=== PATIENT | male | born 1950 | race Caucasian/White ===

== ENCOUNTER 2018-09-27 20:50 | Observation (INO) | payer MEDICARE, SELFPAY ==
[2018-09-27 20:51] VITALS: BP 134/84; PULSE 96; RESP 18; TEMP 36.6; O2SAT 98; BMI 24.6
[2018-09-27 21:22] LABS: Bedside Glucose > 500 mg/dL (70-110)
[2018-09-27] MEDS: 0.9% Normal Saline 1,000 ML 1000 ML IV (21:39)
[2018-09-27 21:43] LABS: Absolute Lymphocyte Count 1.65 X10^3/ul (0.83-4.51); Basophil# 0.03 X10^3/uL; Basophil% 0.4 % (0-1); Eosinophil# 0.17 X10^3/uL; Hematocrit 43.5 % (40-54); Hemoglobin 14.4 g/dl (13.0-16.5); Lymphocyte # 1.65 X10^3/ul (4.0); Lymphocyte % 19.5 % (19-41); Mean Corp Hgb Conc 33.1 g/gl (32-36); Mean Corpuscular Hgb 28.1 pg (27.0-32.0); Mean Corpuscular Volume 84.8 fL (80-94); Mean Platelet Vol. 10.8 fl (6.2-12.0); Monocyte# 0.59 X10^3/uL; Neutrophil # 5.99 X10^3/uL (2.7-7.7); Platelet Count 181 K/mm3 (150-450); RBC Distribution Width CV 13.2 % (11.6-14.6); RBC Distribution Width SD 40.6 fl (35.1-43.9); Red Blood Count 5.13 M/mm3 (4.6-6.2); White Blood Count 8.4 K/mm3 (4.4-11.0)
[2018-09-27 21:43] LABS: Bacteria 0 SEEN /hpf (None Seen); Mucous, Urine 0 SEEN /hpf (<or=2+); Squamous Epithelial Cells - UA 0 SEEN /hpf (0-5); White Blood Cells 0 SEEN /hpf (0-5)
[2018-09-27 21:44] LABS: POSITIVE COUNT NO; POSITIVE DIFFERENTIAL NO; POSITIVE MORPHOLOGY NO
[2018-09-27 21:57] LABS: AST(SGOT) 15 U/L (15-37); Alanine Aminotransfer ALT/SGPT 21 U/L (16-61); Albumin, Serum 3.1 g/dL (3.2-5.0); Alkaline Phosphatase 147 U/L (45-117); Anion Gap 10 (5-15); BUN 40 mg/dL (7-18); BUN/Creat Ratio 16.7 RATIO (10-20); Bilirubin, Direct 0.15 mg/dL (0.00-0.30); Calcium,Total 8.2 mg/dL (8.5-10.1); Chloride 98 mmol/L (98-107); Creatinine, Serum 2.39 mg/dL (0.70-1.30); EST Glomerular Filtration Rate 29 mL/min (>60); Est Glom Filt Rate - Afr Amer 35 mL/min (>60); Estimated Creatinine Clearance 28.22 ml/min; Globulin 3.7 g/dL (2.2-4.2); Glucose 596 mg/dL (74-106); Protein, Total 6.8 g/dL (6.4-8.2); Sodium Level 133 mmol/L (136-145)
--- NOTE | 2018-09-27 21:57 | ED.RN ---
lab called with critical lab results. glucose 595. dr. zabala made aware no new orders at this time
[2018-09-27 22:00] LABS: Color, Urine Yellow (Yellow); Glucose, Dipstick 1000 mg/dl (Normal); Ketone-Dipstick Negative (Negative); Leukocyte Esterase-Dipstick Negative /ul (Negative); Nitrite-Dipstick Negative (Negative); Occult Blood-Urine 25 /ul (Negative); Protein-Dipstick 100 mg/dl (Negative); Specific Gravity, Urine 1.015 (1.002-1.030); Urine Bilirubin Dipstick Negative (Negative); Urine Clarity Clear (Clear); Urine Urobilinogen Normal (Normal)
[2018-09-27 22:01] LABS: Fine Granular Cast- Urine 0-5 SEEN /lpf (0-5)
[2018-09-27 22:02] LABS: Hyaline Cast 0-5 SEEN /lpf (0-5)
[2018-09-27 22:04] LABS: Red Blood Cells-Urine 0-5 SEEN /hpf (0-5)
[2018-09-27 22:05] LABS: Transitional Epithelial - Ur 0-5 SEEN /hpf (0-5)
[2018-09-27] MEDS: 0.9% Normal Saline 1,000 ML 250 ML IV (22:30)
[2018-09-27 22:36] LABS: Bedside Glucose 480 mg/dL (70-110)
--- NOTE | 2018-09-27 22:47 | ED.VISSUMM ---
- ER Visit Summary Date of Service: 09/27/18 Chief Complaint: High blood sugar History of Present Illness: The patient is a 67 M with history of diabetes, hypertension, high cholesterol, coronary disease, stroke, chronic kidney disease. Patient states he lost his balance today while getting dressed and fell. He was so weak he could not get up off the floor. He checked his blood sugar in it and it initially read high. He then recheck blood sugar and said it was greater than 400. Patient states he did have some clumsiness in both hands today. No focal deficits consistent with stroke. He does not normally check his blood sugars and is not taking them in some time. Later during the patient's hospital stay he does admit that he has not been able to afford his medication is not been taking it regularly. Physical Examination: Vital signs are unremarkable. Patient is lying in bed no acute distress. Head neck examination is significant for dry mucous membranes. Heart is regular rate and rhythm. Lungs sounds clear. Abdomen is soft nontender. Neuro exam reveals no focal deficits with an NIH score of 0. Test Results: CBC is unremarkable. Chemistry studies reveal glucose of 596 with coordinating sodium of 133. His BUN is 40 and creatinine is 2.39. LFTs grossly unremarkable. Urinalysis shows 2000 and glucose. Serum acetone is negative. Emergency Department Course and Treatment: Patient is given a liter of IV fluids. Following 1 L his blood sugar was 480. Fluids are being run at 250 an hour and he is given 10 units of insulin. Patient will be admitted for further treatment. I did discuss with social work the fact that he has had difficulty affording his medications and they will work with him tomorrow on this. Treatment Plan: [] Disposition: Admit Impression: 1. Hyperglycemia secondary to medication noncompliance 2. Renal failure This note was generated with [employer] software. It may contain incorrect words, spelling, and punctuation that were not noted in review of the chart prior to signing ED Disposition - Plan for ED Patient: Referrals: Paul Martinez Chi, MD [Primary Care Provider] -
--- NOTE | 2018-09-27 22:50 | ED.DCSUM_ITS ---
- ER Visit Summary Date of Service: 09/27/18 Chief Complaint: High blood sugar History of Present Illness: The patient is a 67 M with history of diabetes, hypertension, high cholesterol, coronary disease, stroke, chronic kidney disease. Patient states he lost his balance today while getting dressed and fel l. He was so weak he could not get up off the floor. He checked his blood sugar in it and it initially read high. He then recheck blood sugar and said it was greater than 400. Patient states he did have some clumsiness in both hands today. No focal deficits consistent with stroke. He does not normally check his blood sugars and is not taking them in some time. Later during the patient's hospital stay he does admit that he has not been able to afford his medication is not been taking it regularly. Physical Examination: Vital signs are unremarkable. Patient is lying in bed no acute distress. Head neck examination is significant for dry mucous membranes. Heart is regular rate and rhythm. Lungs sounds clear. Abdomen is soft nontender. Neuro exam reveals no focal deficits with an NIH score of 0. Test Results: CBC is unremarkable. Chemistry studies reveal glucose of 596 with coordinating sodium of 133. His BUN is 40 and creatinine is 2.39. LFTs grossly unremarkable. Urinalysis shows 2000 and glucose. Serum acetone is negative. Emergency Department Course and Treatment: Patient is given a liter of IV fluids. Following 1 L his blood sugar was 480. Fluids are being run at 250 an hour and he is given 10 units of insulin. Patient will be admitted for further treatment. I did discuss with social work the fact that he has had difficulty affording his medications and they will work with him tomorrow on this. Treatment Plan: [] Disposition: Admit Impression: 1. Hyperglycemia secondary to medication noncompliance 2. Renal failure This note was generated with [employer] software. It may contain incorrect words, spelling, and punctuation that were not noted in review of the chart prior to signing ED Disposition - Plan for ED Patient: Referrals: Paul Martinez Chi, MD [Primary Care Provider] -
--- NOTE | 2018-09-27 22:51 | CM.ED ---
Social Work Note Referral from Dr. Wilde informing that pt is reporting to struggle paying for medications. Face to face with the pt and his and introduced self and role at [facility]. The pt reports to live with his . Confirms his PCP is Dr. Martinez. He had a heart attack approximately 4 years ago and was seeing Dr. Mccray, but is not any longer as he states he was in a program that ended. Preferred pharmacy is [facility]. Pt reports that he has not been taking his medications because even with [employer] covering them they are $300. The pt's monthly income is $1200, but they report that is the rent of their home as well. Educate to Medicaid and that they take into consideration an individuals bills. 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 Will pass along to SW on assigned unit to continue to follow-up with prior to discharge. No additional needs anticipate and pt to discharge home with support of family once medically stable. Rosemary Willingham, TOOL RENTAL TECHNICIAN, AUTOPSY ASSISTANT
--- NOTE | 2018-09-27 22:52 | HP.PCM_ITS ---
Problem List (1) KIMI (acute kidney injury) Status: Acute (2) Hyperglycemia Status: Acute (3) HTN (hypertension) Status: Chronic Qualifiers: Hypertension type: essential hypertension Qualified Code(s): I10 - Essential (primary) hypertension (4) History of stroke Status: Chronic (5) Chronic kidney disease, stage 3 Status: Chronic (6) Peripheral vascular disease Status: Chronic Comment: status post angioplasty. (7) Status post coronary artery bypass graft Status: Chronic (8) Diabetes mellitus, type 2 Status: Chronic Qualifiers: Diabetes mellitus terminal system operator insulin use: without jail use Diabetes mellitus complication status: with unspecified complications Qualified Code(s ): E11.8 - Type 2 diabetes mellitus with unspecified complications (9) GERD (gastroesophageal reflux disease) Status: Chronic Qualifiers: Esophagitis presence: esophagitis presence not specified Qualified Code(s): K21.9 - Gastro-esophageal reflux disease without esophagitis (10) Hyperlipidemia Status: Chronic Qualifiers: Hyperlipidemia type: pure hypercholesterolemia Qualified Code(s): E78.00 - Pure hypercholesterolemia, unspecified; E78.0 - Pure hypercholesterolemia (11) CAD (coronary artery disease) Status: Chronic Qualifiers: Coronary Disease-Associated Artery/Lesion type: unspecified vessel or lesion type [place] vs. transplanted heart: unspecified whether [place] or transplanted heart Associated angina: angina presence unspecified Qualified Code(s): I25.10 - Atherosclerotic heart disease of [place] coronary artery without angina pectoris History of Present Illness Date of Admission: 09/27/18 Chief Complaint: Elevated BS, generalized weakness. The patient is a 67 y/o M w/ PMHx: CKD stage III (baseline Cr 1.4-1.7), Hx prior CVA (Most recent 08/2017 tiny L MCA (parietal)), CAD s/p CABG and PCI, HTN, HLD, Diabetes mellitus type II, Rheumatoid Arthritis who presents to the [facility] ED on 09/27/18 with history of failing to take his occasions secondary to cost he notes aside from aspirin therapy for the last 2 months with progressively worsening fatigue, weakness, polydipsia and polyuria in addition to generalized weakness with blood sugar upon self evaluation greater than 400 which is been the first time he checked his blood sugar since being off his medications. From discussions with patient suspect he had been decreasing his oral intake secondary to frequent urination. Work-up in the ED included T 97.8, heart rate 96, BP 134/84, respiratory rate 18, 98% on room air, CBC with WBC 8.4, hemoglobin 14.4, platelet 181 with mild shift, CMP with sodium 133, BUN/Cr 40/2.39, glucose 596, Alk phos 147, UA with 100 protein, 1000 glucose, negative ketones, 25 occult blood otherwise not market appearing, acetone level negative. In the ED patient administered normal saline, 10 units SC insulin Lispro x1. 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 Chronic kidney disease, stage 3 (Chronic) Peripheral vascular disease (Chronic) status post angioplasty. Status post coronary artery bypass graft (Chronic) Diabetes mellitus, type 2 (Chronic) GERD (gastroesophageal reflux disease) (Chronic) Hyperlipidemia (Chronic) CAD (coronary artery disease) (Chronic) Allergies No Known Allergies Allergy (Verified 09/27/18 20:53) Home Medications: Ambulatory Orders Medication Instructions Recorded Lisinopril [Zestril] 20 mg PO BID 08/02/15 Metoprolol Tartrate [Lopressor 50 mg PO BID 08/02/15 (beta ginny)] Aspirin E.C. [Ecotrin] 81 mg PO DAILY@0800 12/29/15 Dulaglutide [Trulicity] 1.5 mg SQ QWEEK 11/14/16 Folic Acid 1 mg PO SUMOTUWETHFR 03/31/17 Meclizine HCl [Antivert] 25 mg PO 4X/DAY PRN PRN #30 tablet 03/31/17 Methotrexate 5 mg PO SA 03/31/17 Ondansetron [Zofran Odt] 4 mg PO Q8H PRN PRN #10 tablet 03/31/17 Rosuvastatin Calcium [Crestor] 40 mg PO QHS 03/31/17 Sitagliptin Phosphate [Januvia] 100 mg PO DAILY 03/31/17 Clopidogrel Bisulfate [Plavix] 75 mg PO DAILY #30 tab 08/13/17 Amlodipine [Norvasc] 10 mg PO DAILY #60 tab 08/14/17 Surgical History: coronary bypass surgery, - - Benign soft tissue tumor resection, CABG x 3, PCI x 1, BL tunnel surgery, bilateral lower extremity venous intervention unclear type. Psychiatric History: No pertinent psych hx Lives: Spouse/ Significant Other Smoking Status: Former smoker - Patient quit cigarette tobacco usage approximately 50 years prior and notes he smoked for approximately 3 years, 1/4 pack/day. Tobacco Use: Non-smoker Alcohol: None Drugs: None - *Family History Maternal History Items: - - Patient notes that his mother was healthy and denies any history of heart disease, diabetes or cancer, passed at age 93. Paternal History Items: - - Patient notes that his father was healthy with no history of heart disease, diabetes or cancer, passed at age 89 secondary to brain aneurysm rupture. Review of Systems Constitutional: Reports: Malaise, Weakness, Fatigue. Denies: Chills, Fever, Weight Change HEENT: Denies: Head Aches, Sinus Congestion, Sinus Drainage Cardiovascular: Denies: Chest Pain, Palpitations Respiratory: Denies: Cough, Shortness of Breath, Shortness of breath at rest, Shortness of breath upon exertion, Sputum production Gastrointestinal: Denies: Abdominal Pain, Nausea, Vomiting Genitourinary: Denies: Dysuria Musculoskeletal: Reports: Joint Pain. Denies: Joint Tenderness Skin: Denies: Rash, Wounds Neurological: Reports: Balance problems. Denies: Focal weakness, Numbness, Tingling Psychiatric: Denies: Anxiety, Depression, Homicidal Ideations, Suicidal Ideations Endocrine: Reports: Polydipsia, Polyuria Hematologic/ Lymphatic: Denies: Easy Bruising, Easy Bleeding VTE Information - Inpt Only VTE Present on Admission: No VTE Mechan Device Prophylaxis: SCD's VTE Pharm Prophylaxis ordered?: Yes Patient Problems: Active and Suspected Problems Hyperglycemia (Acute) Subjective: Seated upright in ED bed, no acute distress, well-appearing. Objective: Physical Examination: General: awake, alert, oriented x 3 and cooperative, seated upright in the ED bed in no apparent distress. Skin: normal color, turgor, no icterus, cyanosis. HEENT: AT/NC, EOMI, PERRLA, dry MM, no carotid bruits or JVD noted. Lungs: Diminished breath sounds bilateral bases, mild effort, no rales, ronchi or wheezing. Heart: Regular rate and rhythm; no gallop, rub audible. Abdomen: soft, NTTP, ND, normal BS, no HSM. Extremities: no cyanosis, clubbing, or edema. Neurological: patient awake, alert, oriented x 3; cognitive function per family appears baseline intact; pupils equally reactive to light and accomodation; cranial nerves II-XII grossly normal, moving all 4 extremities, no focal deficits, strength moderately globally decreased. Psychiatric: affect appears normal, no acute evidence of depressive or anxiety feelings. - Physical Exam Vital Signs Temp Pulse Resp BP Pulse Ox 97.9 F 96 18 134/84 H 98 09/27/18 20:51 09/27/18 20:51 09/27/18 20:51 09/27/18 20:51 09/27/18 20:51 Oxygen Delivery Method Room Air Weight: 162 lb Body Mass Index (BMI) 24.6 Finger Stick Blood Glucose 480 Laboratory Tests Past 24 Hrs 09/27/18 09/27/18 09/27/18 21:26 21:26 21:26 WBC 8.4 RBC 5.13 Hgb 14.4 Hct 43.5 MCV 84.8 MCH 28.1 MCHC 33.1 RDW 13.2 RDW Differential 40.6 Plt Count 181 MPV 10.8 Immature Gran % (Auto) 0.100 Neut % (Auto) 71.0 H Lymph % (Auto) 19.5 Creek % (Auto) 7.0 Eos % (Auto) 2.0 Baso % (Auto) 0.4 Absolute Neuts (auto) 6.0 Absolute Lymphs (auto) 1.65 Total Counted Not Reportable Sodium 133 L Potassium 4.0 Chloride 98 Carbon Dioxide 25.0 Anion Gap 10 BUN 40 H Creatinine 2.39 H Estim Creat Clear Calc 28.22 Est GFR (MDRD) Af Amer 35 L Est GFR (MDRD) Non-Af 29 L BUN/Creatinine Ratio 16.7 Glucose 596 H* Calcium 8.2 L Total Bilirubin 0.70 Direct Bilirubin 0.15 AST 15 ALT 21 Alkaline Phosphatase 147 H Total Protein 6.8 Albumin 3.1 L Globulin 3.7 Urine Color Urine Clarity Urine pH Ur Specific [place] Urine Protein Urine Glucose (UA) Urine Ketones Urine Occult Blood Urine Nitrite Urine Bilirubin Urine Urobilinogen Ur Leukocyte Esterase Urine RBC Urine WBC Ur Squamous Epith Cells Ur Transition Epith Cell Urine Bacteria Hyaline Casts Fine Granular Casts Urine Mucus Acetone Level NEGATIVE 09/27/18 21:35 WBC RBC Hgb Hct MCV MCH MCHC RDW RDW Differential Plt Count MPV Immature Gran % (Auto) Neut % (Auto) Lymph % (Auto) [place] % (Auto) Eos % (Auto) Baso % (Auto) Absolute Neuts (auto) Absolute Lymphs (auto) Total Counted Sodium Potassium Chloride Carbon Dioxide Anion Gap BUN Creatinine Estim Creat Clear Calc Est GFR (MDRD) Af Amer Est GFR (MDRD) Non-Af BUN/Creatinine Ratio Glucose Calcium Total Bilirubin Direct Bilirubin AST ALT Alkaline Phosphatase Total Protein Albumin Globulin Urine Color Yellow Urine Clarity Clear Urine pH 6.0 Ur Specific [place] 1.015 Urine Protein 100 H Urine Glucose (UA) 1000 H Urine Ketones Negative Urine Occult Blood 25 H Urine Nitrite Negative Urine Bilirubin Negative Urine Urobilinogen Normal Ur Leukocyte Esterase Negative Urine RBC 0-5 SEEN Urine WBC 0 SEEN Ur Squamous Epith Cells 0 SEEN Ur Transition Epith Cell 0-5 SEEN Urine Bacteria 0 SEEN Hyaline Casts 0-5 SEEN Fine Granular Casts 0-5 SEEN Urine Mucus 0 SEEN Acetone Level POC Glucose 09/27/18 09/27/18 22:27 21:11 POC Glucose 480 H* > 500 H* Assessment/Plan All Active Problems Hyperglycemia (Acute) Acute CVA (cerebrovascular accident) (Acute) Vertigo (Acute) Hypertensive crisis (Acute) Hyperglycemic crisis in diabetes mellitus (Acute) KIMI (acute kidney injury) (Acute) Stroke (Acute) Community acquired pneumonia (Acute) The patient is a 67 y/o M w/ PMHx: CKD stage III (baseline Cr 1.4-1.7), Hx prior CVA (Most recent 08/2017 tiny L MCA (parietal)), CAD s/p CABG and PCI, HTN, HLD, Diabetes mellitus type II, Rheumatoid Arthritis who presents to the [facility] ED on 09/27/18 with history of failing to take his occasions secondary to cost he notes aside from aspirin therapy for the last 2 months with progressively worsening fatigue, weakness, polydipsia and polyuria in addition to generalized weakness with blood sugar upon self evaluation greater than 400 which is been the first time he checked his blood sugar since being off his medications. (1) Diabetes mellitus type II, Poorly controlled w/ Hyperglycemia: Work-up in the ED included T 97.8, heart rate 96, BP 134/84, respiratory rate 18, 98% on room air, CBC with WBC 8.4, hemoglobin 14.4, platelet 181 with mild shift, CMP with sodium 133, BUN/Cr 40/2.39, glucose 596, Alk phos 147, UA with 100 protein, 1000 glucose, negative ketones, 25 occult blood otherwise not market appearing, acetone level negative. In the ED patient administered normal saline, 10 units SC insulin Lispro x1. Will admit to MS, obtain mag, phos w/ repletion as needed, obtain HgbA1c, initiate low dose BID levemir, initiate TID 5 u short acting with meals in addition to overlapping ISS w/ accu checks, nutrition consultation for education. CM consulted to assist w/ discharge planning and review of options given cost as barrier. (2) Acute kidney injury on CKD stage III: Possible secondary to non-compliance with his medications, worsening disease in addition to suspected mild dehydration. Admission BUN/Cr 40/2.39, prior baseline creatinine noted to be 1.4-1.7. Will hydrate, hold nephrotoxic medications and repeat chemistry in AM. Will obtain FeNa assessment. If not improving would obtain renal US. (3) Mechanical Fall, Generalized Weakness: Secondary to #1, #2, complicated by his additional noted comorbidities, fall precautions, PT, OT, CM for discharge planning. (4) CAD: s/p CABG and PCI, continue home asa, plavix, statin, BB, holding ACEI given KIMI as noted. (5) Hypertension: Continue home regimen including Norvasc, metoprolol, holding lisinopril given KIMI presentation, PRN hydralazine. (6) Hyperlipidemia: Continue home statin regimen. (7) Rheumatoid Arthritis: On MTX outpatient, hold given intake Saturdays. (8) Prior CVA: Most recent 08/2017 tiny L MCA (parietal), maintain on asa, plavix, statin, BP regimen, CM consulted to assist w/ barrier of cost for insulin, PT, OT evaluations. (9) DVT Prophylaxis: SCDs, heparin. Code Visit OBSV E&M: 77383 Initial observation care L3
[2018-09-27] MEDS: Insulin Lispro 100 UNIT/ML INSULN.PEN 10 UNIT SC (23:05)
[2018-09-27 23:06] VITALS: BP 157/78; PULSE 80; PULSE 82; PULSE 83; RESP 15; RESP 16; RESP 19; TEMP 36.6; O2SAT 94; O2SAT 95; O2SAT 96
[2018-09-27 23:38] VITALS: BMI 25.0
[2018-09-28] VITALS (7 sets, daily range): BP systolic 115–153; BP diastolic 62–71; PULSE 69–81; RESP 16–18; TEMP 36.6–36.8; O2SAT 96–100
[2018-09-28 00:04] LABS: Magnesium 2.3 mg/dL (1.6-2.6)
[2018-09-28] MEDS: Insulin Lispro 100 UNIT/ML INSULN.PEN 10 UNIT SC ×3 (00:19→17:50)
[2018-09-28 00:31] LABS: Bedside Glucose 377 mg/dL (70-110)
[2018-09-28 00:43] LABS: Hemoglobin A1c 14.6 % (4.2-6.3)
[2018-09-28 00:45] LABS: Phosphorus 3.7 mg/dL (2.5-4.9)
[2018-09-28 01:49] LABS: Urine Sodium 48 mmol/L (Not Establ.)
[2018-09-28] MEDS: 0.9% Normal Saline 1,000 ML 150 ML IV ×2 (02:34→08:58)
[2018-09-28 06:11] LABS: Absolute Lymphocyte Count 1.77 X10^3/ul (0.83-4.51); Basophil# 0.02 X10^3/uL; Basophil% 0.3 % (0-1); Eosinophil# 0.25 X10^3/uL; Eosinophils% 3.3 % (0-5); Hematocrit 38.6 % (40-54); Hemoglobin 13.1 g/dl (13.0-16.5); Lymphocyte # 1.77 X10^3/ul (4.0); Lymphocyte % 23.5 % (19-41); Mean Corp Hgb Conc 33.9 g/gl (32-36); Mean Corpuscular Hgb 28.8 pg (27.0-32.0); Mean Corpuscular Volume 84.8 fL (80-94); Mean Platelet Vol. 10.5 fl (6.2-12.0); Monocyte# 0.52 X10^3/uL; Monocyte% 6.9 % (0-10); Neutrophil # 4.96 X10^3/uL (2.7-7.7); Neutrophil % 65.7 % (47-70); Platelet Count 173 K/mm3 (150-450); RBC Distribution Width CV 13.1 % (11.6-14.6); RBC Distribution Width SD 39.8 fl (35.1-43.9); Red Blood Count 4.55 M/mm3 (4.6-6.2); White Blood Count 7.5 K/mm3 (4.4-11.0)
[2018-09-28 06:30] LABS: Anion Gap 8 (5-15); BUN 31 mg/dL (7-18); BUN/Creat Ratio 17.1 RATIO (10-20); Calcium,Total 7.6 mg/dL (8.5-10.1); Chloride 110 mmol/L (98-107); Creatinine, Serum 1.81 mg/dL (0.70-1.30); EST Glomerular Filtration Rate 40 mL/min (>60); Est Glom Filt Rate - Afr Amer 48 mL/min (>60); Estimated Creatinine Clearance 37.27 ml/min; Glucose 250 mg/dL (74-106); Potassium 3.3 mmol/L (3.5-5.1); Sodium Level 142 mmol/L (136-145)
[2018-09-28 06:41] LABS: Bedside Glucose 243 mg/dL (70-110)
[2018-09-28] MEDS: Insulin Lispro 100 UNIT/ML INSULN.PEN SC ×4 (06:42→21:25)
[2018-09-28 07:04] LABS: POSITIVE COUNT NO; POSITIVE DIFFERENTIAL NO; POSITIVE MORPHOLOGY NO
[2018-09-28] MEDS: Aspirin E.C. 81 MG Tablet PO (08:13)
--- NOTE | 2018-09-28 09:11 | PN_ITS ---
Patient Problems: Active and Suspected Problems Hyperglycemia (Acute) Subjective: Patient was seen and examined. He feels better. Denied any chest pain or dizziness or shortness of breath. He admits to having run out of his medications for 2 months because he could not afford to pay for his medications. No acute events overnight Vitals/I&O's: Vital Signs Temp Pulse Resp BP Pulse Ox 98.2 F 74 16 149/71 H 96 09/28/18 07:49 09/28/18 07:49 09/28/18 07:49 09/28/18 07:49 09/28/18 07:49 Oxygen Delivery Method Room Air Weight: 74.8 kg Body Mass Index (BMI) 25.0 Finger Stick Blood Glucose 480 Intake and Output for Last 24 Hours 09/26/18 09/27/18 09/28/18 23:59 23:59 23:59 Intake Total 1280 / 1280 Output Total 300 / 300 Balance 980 / 980 General: Alert, Oriented x3, Cooperative, No apparent distress HEENT: Atraumatic, PERRLA, EOMI, Normocephalic Oral: Moist Mucosa Neck: Supple, No JVD, Negative Carotid Bruits Lungs: Clear to auscultation, Normal air movement Cardiovascular: Regular rate, Regular Rhythm, Normal S1, Normal S2, No murmurs Abdomen: Bowel Sounds Present, Soft, Non Tender, Non-Distended, No Hepato- splenomegaly Extremities: No edema Skin: No rashes, No breakdown Musculoskeletal: No Tenderness to Palpation of Joints or Extremities Lymphatic: No Cervical, Supraclavicular, or Inguinal Adenopathy Neurological: Cranial nerves II-XII grossly intact, Neuro grossly intact Psych/Mental Status: Normal Affect, Appropriate Laboratory Results 09/27/18 21:11: POC Glucose > 500 H* 09/27/18 21:26: WBC 8.4, RBC 5.13, Hgb 14.4, Hct 43.5, MCV 84.8, MCH 28.1, MCHC 33.1, RDW 13.2, RDW Differential 40.6, Plt Count 181, MPV 10.8, Immature Gran % (Auto) 0.100, Neut % (Auto) 71.0 H, Lymph % (Auto) 19.5, Carlton % (Auto) 7.0, Eos % (Auto) 2.0, Baso % (Auto) 0.4, Absolute Neuts (auto) 6.0, Absolute Lymphs (auto) 1.65, Total Counted Not Reportable 09/27/18 21:26: Sodium 133 L, Potassium 4.0, Chloride 98, Carbon Dioxide 25.0, Anion Gap 10, BUN 40 H, Creatinine 2.39 H, Estim Creat Clear Calc 28.22, Est GFR (MDRD) Af Amer 35 L, Est GFR (MDRD) Non-Af 29 L, BUN/Creatinine Ratio 16.7, Glucose 596 H*, Calcium 8.2 L, Total Bilirubin 0.70, Direct Bilirubin 0.15, AST 15, ALT 21, Alkaline Phosphatase 147 H, Total Protein 6.8, Albumin 3.1 L, Globulin 3.7 09/27/18 21:26: Acetone Level NEGATIVE 09/27/18 21:26: Phosphorus 3.7, Magnesium 2.3 09/27/18 21:26: Hemoglobin A1c 14.6 H 09/27/18 21:35: Urine Color Yellow, Urine Clarity Clear, Urine pH 6.0, Ur Specific Vinson 1.015, Urine Protein 100 H, Urine Glucose (UA) 1000 H, Urine Ketones Negative, Urine Occult Blood 25 H, Urine Nitrite Negative, Urine Bilirubin Negative, Urine Urobilinogen Normal, Ur Leukocyte Esterase Negative, Urine RBC 0-5 SEEN, Urine WBC 0 SEEN, Ur Squamous Epith Cells 0 SEEN, Ur Transition Epith Cell 0-5 SEEN, Urine Bacteria 0 SEEN, Hyaline Casts 0-5 SEEN, Fine Granular Casts 0-5 SEEN, Urine Mucus 0 SEEN 09/27/18 21:35: Urine Creatinine 67.70 09/27/18 21:35: Ur Random Sodium 48 09/27/18 22:27: POC Glucose 480 H* 09/28/18 00:19: POC Glucose 377 H 09/28/18 05:32: WBC 7.5, RBC 4.55 L, Hgb 13.1, Hct 38.6 L, MCV 84.8, MCH 28.8, MCHC 33.9, RDW 13.1, RDW Differential 39.8, Plt Count 173, MPV 10.5, Immature Gran % (Auto) 0.300, Neut % (Auto) 65.7, Lymph % (Auto) 23.5, Carlton % (Auto) 6.9, Eos % (Auto) 3.3, Baso % (Auto) 0.3, Absolute Neuts (auto) 5.0, Absolute Lymphs (auto) 1.77, Total Counted Not Reportable 09/28/18 05:32: Sodium 142, Potassium 3.3 L, Chloride 110 H, Carbon Dioxide 24.0, Anion Gap 8, BUN 31 H, Creatinine 1.81 H, Estim Creat Clear Calc 37.27, Est GFR (MDRD) Af Amer 48 L, Est GFR (MDRD) Non-Af 40 L, BUN/Creatinine Ratio 17.1, Glucose 250 H, Calcium 7.6 L 09/28/18 06:35: POC Glucose 243 H Current Medications Acetaminophen (Tylenol) 650 mg PO Q6H PRN PRN PRN Reason: Non-cardiac pain (mod-severe) Al Hydroxide/Mg Hydroxide (Mylanta Ii) 30 ml PO Q6H PRN PRN PRN Reason: Gastric burning Amlodipine Besylate (Norvasc) 10 mg PO DAILY [facility] Aspirin (Ecotrin) 81 mg PO DAILY@0800 [facility] Last Admin: 09/28/18 08:13 Dose: 81 mg Atorvastatin Calcium (Lipitor) 80 mg PO QHS [facility] Clopidogrel Bisulfate (Plavix) 75 mg PO DAILY [facility] Dextrose (D50w Syringe) 0 gm IV X1 PRN; Protocol PRN Reason: Hypoglycemia Glucagon () 1 mg IM .X1 PRN PRN Reason: Hypoglycemia Heparin Sodium (Porcine) (Heparin Na) 5,000 unit SC Q12 [facility] Hydralazine HCl (Apresoline Iv) 10 mg IV Q4H PRN PRN PRN Reason: SBP > 160 Sodium Chloride () 1,000 mls @ 150 mls/hr IV .Q6H40M [facility] Last Admin: 09/28/18 08:58 Dose: 150 mls/hr Influenza Virus Vaccine Quadrival (Fluarix/Fluzone) 0.5 ml IM .ONCE ONE Stop: 09/28/18 10:01 Insulin Glargine (Lantus (Bkc)) 10 units SC BID [facility] Last Admin: 09/28/18 00:24 Dose: 10 u Insulin Human Lispro (Humalog Kwikpen (Bkc)) 5 unit SC TIDAC [facility] Last Admin: 09/28/18 06:42 Dose: 5 u Insulin Human Lispro (Humalog Kwikpen (Bkc)) 0 unit SC ACHS JOY; Protocol Last Admin: 09/28/18 08:13 Dose: 3 u Magnesium Hydroxide (Milk Of Magnesia) 30 ml PO DAILY PRN PRN PRN Reason: Constipation Metoprolol Tartrate (Lopressor (Beta Laz)) 50 mg PO BID [facility] Nitroglycerin (Nitrostat) 0.4 mg SUBLINGUAL Q5M PRN PRN Reason: Angina pain Nutritional Formula (Lactose Free) (Glucerna Shake) 120 ml PO 4X/DAY JOY Ondansetron HCl (Zofran) 4 mg IV Q8H PRN PRN PRN Reason: NAUSEA/VOMITING Sodium Chloride () 5 - 15 ml IV UD PRN PRN Reason: SALINE FLUSH Medical Necessity - Tobacco Use Smoking Status: Former smoker Tobacco Use: Non-smoker Assessment/Plan All Active Problems Hyperglycemia (Acute) Acute CVA (cerebrovascular accident) (Acute) Vertigo (Acute) Hypertensive crisis (Acute) Hyperglycemic crisis in diabetes mellitus (Acute) KIMI (acute kidney injury) (Acute) Stroke (Acute) Community acquired pneumonia (Acute) 67-year-old male with past medical history of type II DM, CKD stage III, history of CVA, CAD status post CABG, rheumatoid arthritis who presents with worsening fatigue, weakness, polydipsia, polyuria as well as generalized weakness and found to have blood sugar more than 400. 1. Type II DM, poorly controlled, admitting HbA1c is 14.6, patient admits to running out of his medications 2. KIMI on CKD stage III secondary to dehydration, improving, Cr 2.39 to 1.81, continue on IV fluids, labs in a.m. 3. Hypokalemia, replaced, recheck in am 4. Mechanical fall, debility secondary to hyperglycemia, concurrent medical conditions, PT and OT consulted 5. CAD status post CABG, PCI, h/o CVA, on aspirin, Plavix, statin, beta-laz, NADINE inhibitor on hold 6. Hypertension, continue home medications, NADINE inhibitor on hold 7. Hyperlipidemia, on statin 8. RA, on methotrexate 9. DVT PPx- Heparin SC Code Visit Inpatient E&M: 75760 Subs Hosp L2
[2018-09-28 09:40] LABS: Magnesium 2.2 mg/dL (1.6-2.6)
[2018-09-28] MEDS: Glucerna Shake 120 ML LIQUID PO (09:41)
[2018-09-28] MEDS: Heparin Injection (Vial) 5,000 UNIT/ML VIAL 5000 UNIT SC ×2 (09:47→21:24)
[2018-09-28] MEDS: Metoprolol Tartrate 50 MG Tablet PO ×2 (09:53→21:25)
[2018-09-28] MEDS: Clopidogrel Bisulfate 75 MG Tablet PO (09:53)
[2018-09-28] MEDS: amLODIPine 10 MG Tablet PO (09:53)
--- NOTE | 2018-09-28 09:56 | CASEMGMT ---
Social Work Note SW provided pt with prescription assistance resources. SW also provided pt with Medicaid application. SW encouraged pt to review resources and if any questions arise to ask staff and this worker can return. Pt states understanding. Alysia De Luna CASH MANAGER, [employer]
[2018-09-28 12:01] LABS: Bedside Glucose 263 mg/dL (70-110)
--- NOTE | 2018-09-28 12:22 | CASEMGMT ---
Addendum entered by Alysia Adhikari 09/28/18 13:55: 1311- Return call from page to Dr Ch. Did receive message regarding Medications. States will call [facility] herself and come to resolution. Primary CM surekha. [facility] Original Note: Issue: Insulin Home Medication Cost 1140- Called patient Preferred Pharmacy [facility] [phone]- S/w Giselle and states that Humalog has no copay but does not see the order for Lantus. 1202- S/w Giselle and confirmed received Lantus order and states cost $141 for the box ~75days worth, states Humalog needs a prior authorization and alternative option for the doctor to change to Novalog Flex Pen. Dr Ch updated/informed via text [employer]. Primary CM [facility]
--- NOTE | 2018-09-28 13:33 | CASEMGMT ---
CASSANDRA Note: [place] form reviewed with patient in regards to his treatment of Hyperglycemia and acute kidney injury. Notified pt that outpt billing is determined by his [employer] policy and status during hospital stay is reviewed for changes in his condition that may warrant Inpatient stay. Pt states he understands and form was signed. No further questions. Jace CHAUHAN RN ACM
[2018-09-28] MEDS: 0.9% Normal Saline 1,000 ML 100 ML IV (15:45)
[2018-09-28 16:36] LABS: Bedside Glucose 120 mg/dL (70-110)
[2018-09-28] MEDS: Atorvastatin Calcium 80 MG Tablet PO (21:25)
[2018-09-28 23:06] LABS: Bedside Glucose 188 mg/dL (70-110)
[2018-09-29] MEDS: 0.9% Normal Saline 1,000 ML 100 ML IV (02:03)
[2018-09-29 03:05] VITALS: BP 156/67; PULSE 66; RESP 18; TEMP 36.7; O2SAT 96
[2018-09-29 06:31] LABS: Absolute Neutrophil Count 3.5 X10^3/uL (2.0-7.7); Basophil# 0.03 X10^3/uL; Basophil% 0.5 % (0-1); Eosinophil# 0.26 X10^3/uL; Eosinophils% 4.4 % (0-5); Hematocrit 39.6 % (40-54); Hemoglobin 13.1 g/dl (13.0-16.5); Lymphocyte % 25.4 % (19-41); Mean Corp Hgb Conc 33.1 g/gl (32-36); Mean Corpuscular Hgb 28.3 pg (27.0-32.0); Mean Corpuscular Volume 85.5 fL (80-94); Monocyte# 0.56 X10^3/uL; Monocyte% 9.5 % (0-10); Neutrophil # 3.53 X10^3/uL (2.7-7.7); Neutrophil % 59.7 % (47-70); Platelet Count 164 K/mm3 (150-450); RBC Distribution Width CV 13.1 % (11.6-14.6); RBC Distribution Width SD 40.4 fl (35.1-43.9); Red Blood Count 4.63 M/mm3 (4.6-6.2); White Blood Count 5.9 K/mm3 (4.4-11.0)
[2018-09-29 06:46] LABS: Bedside Glucose 232 mg/dL (70-110)
[2018-09-29 06:49] LABS: POSITIVE COUNT NO; POSITIVE DIFFERENTIAL NO; POSITIVE MORPHOLOGY NO
[2018-09-29 06:52] LABS: Anion Gap 10 (5-15); BUN 30 mg/dL (7-18); BUN/Creat Ratio 16.6 RATIO (10-20); Calcium,Total 7.5 mg/dL (8.5-10.1); Chloride 113 mmol/L (98-107); Creatinine, Serum 1.81 mg/dL (0.70-1.30); EST Glomerular Filtration Rate 40 mL/min (>60); Est Glom Filt Rate - Afr Amer 48 mL/min (>60); Estimated Creatinine Clearance 37.27 ml/min; Glucose 273 mg/dL (74-106); Potassium 4.2 mmol/L (3.5-5.1); Sodium Level 144 mmol/L (136-145)
[2018-09-29 07:15] VITALS: O2SAT 95
[2018-09-29 07:22] VITALS: BP 172/73; PULSE 66; RESP 16; TEMP 36.8; O2SAT 95
[2018-09-29] MEDS: Aspirin E.C. 81 MG Tablet PO (07:30)
[2018-09-29 07:33] VITALS: BP 172/73; PULSE 66
[2018-09-29] MEDS: hydrALAZINE 20 MG/ML Vial 10 MG IV (07:33)
[2018-09-29] MEDS: 0.9% NaCl Peripheral Flush Adult/Peds IV (07:34)
[2018-09-29] MEDS: Insulin Lispro 100 UNIT/ML INSULN.PEN SC ×3 (08:20→12:41)
[2018-09-29] MEDS: Insulin Lispro 100 UNIT/ML INSULN.PEN 10 UNIT SC (08:20)
[2018-09-29] MEDS: Heparin Injection (Vial) 5,000 UNIT/ML VIAL 5000 UNIT SC (09:56)
[2018-09-29 10:08] VITALS: BP 141/72; PULSE 80
[2018-09-29] MEDS: Clopidogrel Bisulfate 75 MG Tablet PO (10:08)
[2018-09-29] MEDS: Metoprolol Tartrate 50 MG Tablet PO (10:08)
[2018-09-29] MEDS: amLODIPine 10 MG Tablet PO (10:08)
--- NOTE | 2018-09-29 10:19 | PCM.DC ---
- Discharge Diagnoses Current Active Problems: Current Active and Chronic Problems HTN (hypertension) (Chronic) History of stroke (Chronic) Hyperglycemia (Acute) Reason(s) for Visit for Discharge Instructions: Uncontrolled blood sugar You will use the following diet at home:: Calorie/Carbohydrate Controlled (specify 1200, 1400, etc), Cardiac Your food should be the consistency of: Regular Your liquids should be the consistency of: Regular/Thin Discharge Activity: Return to Normal Activity Additional Instructions: Continue to take all your medicines as prescribed. You should keep a log of your blood sugars before meals and at night. Follow-up with Dr. Martinez within 1-2 weeks with a log of your blood sugars. Continue on your diabetic diet as educated. You need to have your kidney function test within 1 week with your primary care doctor. Allergies/Adverse Reactions: Allergies No Known Allergies Allergy (Verified 09/27/18 20:53) Medications to take at Discharge Metoprolol Tartrate [Lopressor (beta ginny)] 50 mg PO BID 08/02/15 Aspirin E.C. [Ecotrin] 81 mg PO DAILY@0800 12/29/15 Methotrexate 5 mg PO SA 03/31/17 Sitagliptin Phosphate [Januvia] 100 mg PO DAILY 03/31/17 Clopidogrel Bisulfate [Plavix] 75 mg PO DAILY #30 tab 08/13/17 Amlodipine [Norvasc] 10 mg PO DAILY #60 tab 08/14/17 Atorvastatin Calcium 80 mg PO QHS 09/28/18 Insulin Glargine [Lantus SoloStar Pen] 10 units SC BID #1 pen 09/28/18 Insulin Lispro [Humalog KwikPen] See Protocol [facility] #1 insuln.pen 09/28/18 Lisinopril/Hydrochlorothiazide [Lisinopril-Hctz 20-12.5 mg Tab] PO BID 09/28/18 Acetaminophen [Tylenol Tablet] 650 mg PO Q6H PRN PRN tablet 09/29/18 Insulin Lispro [Humalog KwikPen] 5 unit SC TIDAC #1 insuln.pen 09/29/18 The following prescriptions were given: Insulin Lispro [Humalog KwikPen] See Protocol [facility] #1 insuln.pen Insulin Lispro [Humalog KwikPen] 5 unit SC TIDAC #1 insuln.pen Insulin Glargine [Lantus SoloStar Pen] 10 units SC BID #1 pen Primary Care Physician: Pual Martinez Chi, MD [Primary Care Provider] - Please follow up with your Primary Care Physician in: within 1-2 weeks Test Results: Test results from this visit will be discussed in further detail at your follow-up appointment, if applicable. Proposed Discharge Date: 09/29/18
--- NOTE | 2018-09-29 10:24 | DCINST_ITS ---
- Discharge Diagnoses Current Active Problems: Current Active and Chronic Problems HTN (hypertension) (Chronic) History of stroke (Chronic) Hyperglycemia (Acute) Reason(s) for Visit for Discharge Instructions: Uncontrolled blood sugar You will use the following diet at home:: Calorie/Carbohydrate Controlled (specify 1200, 1400, etc), Cardiac Your food should be the consistency of: Regular Your liquids should be the consistency of: Regular/Thin Discharge Activity: Return to Normal Activity Additional Instructions: Continue to take all your medicines as prescribed. You should keep a log of your blood sugars before meals and at night. Follow-up with Dr. Martinez within 1-2 weeks with a log of your blood sugars. Continue on your diabetic diet as educated. You need to have your kidney function test within 1 week with your primary care doctor. Allergies/Adverse Reactions: Allergies No Known Allergies Allergy (Verified 09/27/18 20:53) Medications to take at Discharge Metoprolol Tartrate [Lopressor (beta ginny)] 50 mg PO BID 08/02/15 Aspirin E.C. [Ecotrin] 81 mg PO DAILY@0800 12/29/15 Methotrexate 5 mg PO SA 03/31/17 Sitagliptin Phosphate [Januvia] 100 mg PO DAILY 03/31/17 Clopidogrel Bisulfate [Plavix] 75 mg PO DAILY #30 tab 08/13/17 Amlodipine [Norvasc] 10 mg PO DAILY #60 tab 08/14/17 Atorvastatin Calcium 80 mg PO QHS 09/28/18 Insulin Glargine [Lantus SoloStar Pen] 10 units SC BID #1 pen 09/28/18 Insulin Lispro [Humalog KwikPen] See Protocol [facility] #1 insuln.pen 09/28/18 Lisinopril/Hydrochlorothiazide [Lisinopril-Hctz 20-12.5 mg Tab] PO BID 09/28/18 Acetaminophen [Tylenol Tablet] 650 mg PO Q6H PRN PRN tablet 09/29/18 Insulin Lispro [Humalog KwikPen] 5 unit SC TIDAC #1 insuln.pen 09/29/18 The following prescriptions were given: Insulin Lispro [Humalog KwikPen] See Protocol [facility] #1 insuln.pen Insulin Lispro [Humalog KwikPen] 5 unit SC TIDAC #1 insuln.pen Insulin Glargine [Lantus SoloStar Pen] 10 units SC BID #1 pen Primary Care Physician: Paul Martinez Chi, MD [Primary Care Provider] - Please follow up with your Primary Care Physician in: within 1-2 weeks Test Results: Test results from this visit will be discussed in further detail at your follow- up appointment, if applicable. Proposed Discharge Date: 09/29/18
--- NOTE | 2018-09-29 10:26 | DS.PCM_ITS ---
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 Chronic kidney disease, stage 3 (Chronic) Peripheral vascular disease (Chronic) status post angioplasty. Status post coronary artery bypass graft (Chronic) Diabetes mellitus, type 2 (Chronic) GERD (gastroesophageal reflux disease) (Chronic) Hyperlipidemia (Chronic) CAD (coronary artery disease) (Chronic) Hospital Course and Treatment None Operations: None Procedures: None Summary of Care Provided: 67-year-old male with past medical history of type II DM, CKD stage III, history of CVA, CAD status post CABG, rheumatoid arthritis who presents with worsening fatigue, weakness, polydipsia, polyuria as well as generalized weakness and found to have blood sugar more than 400. Patient was admitted to the telemetry floor. HbA1c was 14.6, managed on insulin -Lantus, pre-meal lispro as well as insulin sliding scale with improvement. He was found to be dehydrated with a creatinine of 2.39 that improved with IV fluids. Discharge creatinine was 1.81. He also had hypokalemia which was replaced. Patient was seen by PT and OT and did not recommend any follow-up therapy. He will follow-up with his primary care doctor within a week to 2 weeks for repeat blood work. Discussed with his pharmacy, patient's NovoLog was covered under his insurance. His Lantus had copay of $141 for 2 and half months which the patient was comfortable paying. He was strongly educated on continuing with his insulins and not running out of his medications. He knows to keep a log of his blood sugars and follow-up with his primary doctor. Subjective: On the day of discharge, patient felt improved, denied any dizziness or shortness of breath. [place] comfortable with the education given by the dietitian as well as the nursing staff Objective: Physical exam: General: Alert, Oriented x3, Cooperative, No apparent distress HEENT: Atraumatic, PERRLA, EOMI, Normocephalic Oral: Moist Mucosa Neck: Supple, No JVD, Negative Carotid Bruits Lungs: Clear to auscultation, Normal air movement Cardiovascular: Regular rate, Regular Rhythm, Normal S1, Normal S2, No murmurs Abdomen: Bowel Sounds Present, Soft, Non Tender, Non-Distended, No Hepato- splenomegaly Extremities: No edema Skin: No rashes, No breakdown Musculoskeletal: No Tenderness to Palpation of Joints or Extremities Lymphatic: No Cervical, Supraclavicular, or Inguinal Adenopathy Neurological: Cranial nerves II-XII grossly intact, Neuro grossly intact Psych/Mental Status: Normal Affect, Appropriate - Physical Exam Vital Signs Temp Pulse Resp BP Pulse Ox 98.2 F 80 16 141/72 H 95 09/29/18 07:22 09/29/18 10:08 09/29/18 07:22 09/29/18 10:08 09/29/18 07:22 Oxygen Delivery Method Room Air Weight: 74.8 kg Body Mass Index (BMI) 25.0 Finger Stick Blood Glucose 480 Intake and Output for Last 24 Hours 09/27/18 09/28/18 09/29/18 23:59 23:59 23:59 Intake Total 1280 / 1280 1840 / 1840 Output Total 300 / 300 Balance 980 / 980 1840 / 1840 Laboratory Tests Past 24 Hrs 09/29/18 09/29/18 05:20 05:20 WBC 5.9 RBC 4.63 Hgb 13.1 Hct 39.6 L MCV 85.5 MCH 28.3 MCHC 33.1 RDW 13.1 RDW Differential 40.4 Plt Count 164 MPV 11.0 Immature Gran % (Auto) 0.500 Neut % (Auto) 59.7 Lymph % (Auto) 25.4 Clay % (Auto) 9.5 Eos % (Auto) 4.4 Baso % (Auto) 0.5 Absolute Neuts (auto) 3.5 Absolute Lymphs (auto) 1.50 Total Counted Not Reportable Sodium 144 Potassium 4.2 Chloride 113 H Carbon Dioxide 21.0 Anion Gap 10 BUN 30 H Creatinine 1.81 H Estim Creat Clear Calc 37.27 Est GFR (MDRD) Af Amer 48 L Est GFR (MDRD) Non-Af 40 L BUN/Creatinine Ratio 16.6 Glucose 273 H Calcium 7.5 L POC Glucose 09/29/18 09/28/18 09/28/18 06:43 21:23 16:26 POC Glucose 232 H 188 H 120 H 09/28/18 11:19 POC Glucose 263 H Discharge Diet: Low fat/ Low Cholesterol, 2000 mg Sodium Diet, Carb Control Diet Discharge Activity: Return to Normal Activity Home Medications: Medications to take at Discharge Metoprolol Tartrate [Lopressor (beta ginny)] 50 mg PO BID 08/02/15 Aspirin E.C. [Ecotrin] 81 mg PO DAILY@0800 12/29/15 Methotrexate 5 mg PO SA 03/31/17 Sitagliptin Phosphate [Januvia] 100 mg PO DAILY 03/31/17 Clopidogrel Bisulfate [Plavix] 75 mg PO DAILY #30 tab 08/13/17 Amlodipine [Norvasc] 10 mg PO DAILY #60 tab 08/14/17 Atorvastatin Calcium 80 mg PO QHS 09/28/18 Insulin Glargine [Lantus SoloStar Pen] 10 units SC BID #1 pen 09/28/18 Insulin Lispro [Humalog KwikPen] See Protocol [facility] #1 insuln.pen 09/28/18 Lisinopril/Hydrochlorothiazide [Lisinopril-Hctz 20-12.5 mg Tab] PO BID 09/28/18 Acetaminophen [Tylenol Tablet] 650 mg PO Q6H PRN PRN tablet 09/29/18 Insulin Lispro [Humalog KwikPen] 5 unit SC TIDAC #1 insuln.pen 09/29/18 Following Prescrptions Were Given to Patient: Insulin Lispro [Humalog KwikPen] See Protocol [facility] #1 insuln.pen Insulin Lispro [Humalog KwikPen] 5 unit SC TIDAC #1 insuln.pen Insulin Glargine [Lantus SoloStar Pen] 10 units SC BID #1 pen Primary Care Physician: Paul Martinez Chi, MD [Primary Care Provider] - Please follow up with your Primary Care Physician in: within 1-2 weeks Disposition: Home Minutes spent on discharge:: 40 Patient Condition:: Stable Medical Necessity - Tobacco Use Smoking Status: Former smoker Tobacco Use: Non-smoker Meaningful Use Info Meaningful Use Diagnoses (Choose all that apply): None applicable Code Visit Inpatient E&M: 63171 Disch Hosp
[2018-09-29 11:36] LABS: Bedside Glucose 272 mg/dL (70-110)
[2018-09-29 14:08] VITALS: BP 137/86; PULSE 73; RESP 16; TEMP 36.7; O2SAT 97
[2018-09-29 15:36] LABS: Bedside Glucose 172 mg/dL (70-110)
== END 2018-09-29 16:15 | disposition home or self-care (01) ==
LOC: ED 21:35 → MS3 23:20
PROVIDERS: Admitting Provider Family Medicine; Emergency Provider Emergency Medicine; Family Provider Family Medicine Geriatric Medicine; PCP Family Medicine Geriatric Medicine; Visit Provider Internal Medicine
DX: E11.65 Type 2 diabetes mellitus with hyperglycemia (principal); I12.9 Hypertensive chronic kidney disease with stage 1 through stage 4 chronic kidney disease, or unspecified chronic kidney disease; R29.700 NIHSS score 0; N17.9 Acute kidney failure, unspecified; Z23 Encounter for immunization; N18.3 Chronic kidney disease, stage 3 (moderate); E11.22 Type 2 diabetes mellitus with diabetic chronic kidney disease; E86.0 Dehydration; E11.51 Type 2 diabetes mellitus with diabetic peripheral angiopathy without gangrene; K21.9 Gastro-esophageal reflux disease without esophagitis; I25.10 Atherosclerotic heart disease of native coronary artery without angina pectoris; M06.9 Rheumatoid arthritis, unspecified; Z91.14 Patient's other noncompliance with medication regimen; Z95.1 Presence of aortocoronary bypass graft; Z79.899 Other long term (current) drug therapy; Z79.82 Long term (current) use of aspirin; Z79.02 Long term (current) use of antithrombotics/antiplatelets; Z87.891 Personal history of nicotine dependence; E78.5 Hyperlipidemia, unspecified
CPT/HCPCS: 36415; 80048; 80076; 81001; 82009; 82570; 82962; 83036; 83735; 84100; 84300; 85025; 96361; 96372; 96374; 97165; 97802; 99218; 99283; G0008; J7030; 90686; A4216; G0378

== ENCOUNTER → 2018-10-02 10:15 | Outpatient (CLI) | payer MEDICARE, SELFPAY ==
[2018-09-27 23:38] VITALS: BMI 25.0
[2018-10-02 13:15] LABS: Absolute Lymphocyte Count 1.52 X10^3/ul (0.83-4.51); Absolute Neutrophil Count 3.6 X10^3/uL (2.0-7.7); Basophil# 0.04 X10^3/uL; Basophil% 0.7 % (0-1); Eosinophil# 0.36 X10^3/uL; Eosinophils% 5.9 % (0-5); Hematocrit 42.6 % (40-54); Hemoglobin 13.6 g/dl (13.0-16.5); Lymphocyte # 1.52 X10^3/ul (4.0); Lymphocyte % 24.9 % (19-41); Mean Corp Hgb Conc 31.9 g/gl (32-36); Mean Corpuscular Hgb 27.6 pg (27.0-32.0); Mean Corpuscular Volume 86.4 fL (80-94); Mean Platelet Vol. 10.7 fl (6.2-12.0); Monocyte# 0.54 X10^3/uL; Monocyte% 8.9 % (0-10); Neutrophil # 3.62 X10^3/uL (2.7-7.7); Neutrophil % 59.3 % (47-70); Platelet Count 198 K/mm3 (150-450); RBC Distribution Width CV 13.4 % (11.6-14.6); RBC Distribution Width SD 40.9 fl (35.1-43.9); Red Blood Count 4.93 M/mm3 (4.6-6.2); White Blood Count 6.1 K/mm3 (4.4-11.0)
[2018-10-02 13:17] LABS: POSITIVE COUNT NO; POSITIVE DIFFERENTIAL NO; POSITIVE MORPHOLOGY NO
[2018-10-02 13:43] LABS: ALB/GLOB Ratio 0.8 RATIO (0.9-2.4); AST(SGOT) 24 U/L (15-37); Alanine Aminotransfer ALT/SGPT 24 U/L (16-61); Alkaline Phosphatase 124 U/L (45-117); Anion Gap 8 (5-15); BUN 26 mg/dL (7-18); BUN/Creat Ratio 14.6 RATIO (10-20); Calcium,Total 8.1 mg/dL (8.5-10.1); Chloride 112 mmol/L (98-107); Creatinine, Serum 1.78 mg/dL (0.70-1.30); EST Glomerular Filtration Rate 40 mL/min (>60); Est Glom Filt Rate - Afr Amer 49 mL/min (>60); Globulin 3.7 g/dL (2.2-4.2); Glucose 182 mg/dL (74-106); Protein, Total 6.7 g/dL (6.4-8.2); Sodium Level 146 mmol/L (136-145); Thyroid Stim Hormone (TSH) 1.07 uIU/mL (0.358-3.74)
[2018-10-02 14:24] LABS: Vitamin D,25 Hydroxy 15.7 ng/mL (29.95-100.01)
== END ==
PROVIDERS: Family Provider Family Medicine Geriatric Medicine; PCP Family Medicine Geriatric Medicine; Visit Provider Family Medicine Geriatric Medicine
DX: E11.9 Type 2 diabetes mellitus without complications (principal); E55.9 Vitamin D deficiency, unspecified; F52.8 Other sexual dysfunction not due to a substance or known physiological condition; I10 Essential (primary) hypertension
CPT/HCPCS: 36415; 80053; 82306; 84403; 84443; 85025

== ENCOUNTER → 2019-01-06 | Outpatient (CLI) | payer MEDICARE, SELFPAY ==
[2018-09-27 23:38] VITALS: BMI 25.0
[2019-01-06 17:48] LABS: Basophil# 0.04 X10^3/uL; Basophil% 0.5 % (0-1); Eosinophil# 0.24 X10^3/uL; Eosinophils% 2.8 % (0-5); Hematocrit 42.6 % (40-54); Lymphocyte % 29.4 % (19-41); Mean Corp Hgb Conc 32.9 g/gl (32-36); Mean Corpuscular Hgb 27.3 pg (27.0-32.0); Mean Platelet Vol. 11.1 fl (6.2-12.0); Monocyte# 0.67 X10^3/uL; Monocyte% 7.9 % (0-10); Neutrophil # 5.02 X10^3/uL (2.7-7.7); Neutrophil % 59.2 % (47-70); Platelet Count 218 K/mm3 (150-450); RBC Distribution Width CV 13.8 % (11.6-14.6); RBC Distribution Width SD 41.4 fl (35.1-43.9); Red Blood Count 5.13 M/mm3 (4.6-6.2); White Blood Count 8.5 K/mm3 (4.4-11.0)
[2019-01-06 17:56] LABS: Vitamin D,25 Hydroxy 19.4 ng/mL (29.95-100.01)
[2019-01-06 17:58] LABS: ALB/GLOB Ratio 0.8 RATIO (0.9-2.4); AST(SGOT) 32 U/L (15-37); Alanine Aminotransfer ALT/SGPT 30 U/L (16-61); Alkaline Phosphatase 100 U/L (45-117); Anion Gap 8 (5-15); BUN 42 mg/dL (7-18); BUN/Creat Ratio 16.7 RATIO (10-20); Calcium,Total 8.7 mg/dL (8.5-10.1); Chloride 109 mmol/L (98-107); Cholesterol 156 mg/dL (200); Creatinine, Serum 2.52 mg/dL (0.70-1.30); EST Glomerular Filtration Rate 27 mL/min (>60); Est Glom Filt Rate - Afr Amer 33 mL/min (>60); Globulin 3.8 g/dL (2.2-4.2); Glucose 171 mg/dL (74-106); High Density Lipoprotein 33 mg/dL; POSITIVE COUNT NO; POSITIVE DIFFERENTIAL NO; POSITIVE MORPHOLOGY NO; Potassium 3.9 mmol/L (3.5-5.1); Protein, Total 6.8 g/dL (6.4-8.2); Sodium Level 144 mmol/L (136-145); Thyroid Stim Hormone (TSH) 0.91 uIU/mL (0.358-3.74); Triglycerides 351 mg/dL; Very Low Density Lipoprotein 70 mg/dL (5-40)
== END | disposition home or self-care (01) ==
PROVIDERS: Family Provider Family Medicine Geriatric Medicine; PCP Family Medicine Geriatric Medicine; Visit Provider Family Medicine Geriatric Medicine
DX: E11.9 Type 2 diabetes mellitus without complications (principal); E55.9 Vitamin D deficiency, unspecified; E78.5 Hyperlipidemia, unspecified; F52.8 Other sexual dysfunction not due to a substance or known physiological condition; I10 Essential (primary) hypertension
CPT/HCPCS: 36415; 80053; 80061; 82306; 84403; 84443; 85025

== ENCOUNTER → 2019-04-06 | Outpatient (CLI) | payer MEDICARE, SELFPAY ==
[2018-09-27 23:38] VITALS: BMI 25.0
[2019-04-06 17:14] LABS: Absolute Lymphocyte Count 2.56 X10^3/uL (0.83-4.51); Absolute Neutrophil Count 5.5 X10^3/uL (2.0-7.7); Basophil# 0.05 X10^3/uL; Basophil% 0.5 % (0-1); Eosinophil# 0.35 X10^3/uL; Eosinophils% 3.8 % (0-5); Hematocrit 46.3 % (40-54); Hemoglobin 14.6 g/dL (13.0-16.5); Lymphocyte # 2.56 X10^3/ul (4.0); Lymphocyte % 27.7 % (19-41); Mean Corp Hgb Conc 31.5 g/dL (32-36); Mean Corpuscular Hgb 27.4 pg (27.0-32.0); Mean Corpuscular Volume 86.9 fL (80-94); Mean Platelet Vol. 10.8 fl (6.2-12.0); Monocyte# 0.73 X10^3/uL; Monocyte% 7.9 % (0-10); NRBC Flagged by Analyzer 0 % (0-5); Neutrophil # 5.51 X10^3/uL (2.7-7.7); Neutrophil % 59.7 % (47-70); Platelet Count 248 K/mm3 (150-450); RBC Distribution Width CV 13.8 % (11.6-14.6); RBC Distribution Width SD 43.5 fl (35.1-43.9); Red Blood Count 5.33 M/mm3 (4.6-6.2); White Blood Count 9.2 K/mm3 (4.4-11.0)
[2019-04-06 17:32] LABS: Vitamin D,25 Hydroxy 16.1 ng/mL (29.95-100.01)
[2019-04-06 18:00] LABS: ALB/GLOB Ratio 0.8 RATIO (0.9-2.4); AST(SGOT) 29 U/L (15-37); Alanine Aminotransfer ALT/SGPT 32 U/L (16-61); Albumin, Serum 3.2 g/dL (3.2-5.0); Alkaline Phosphatase 118 U/L (45-117); Anion Gap 8 (5-15); BUN 37 mg/dL (7-18); BUN/Creat Ratio 17.4 RATIO (10-20); Calcium,Total 8.8 mg/dL (8.5-10.1); Chloride 107 mmol/L (98-107); Cholesterol 189 mg/dL (200); Creatinine, Serum 2.13 mg/dL (0.70-1.30); EST Glomerular Filtration Rate 33 mL/min (>60); Est Glom Filt Rate - Afr Amer 40 mL/min (>60); Globulin 4.1 g/dL (2.2-4.2); Glucose 193 mg/dL (74-106); High Density Lipoprotein 29 mg/dL; Potassium 3.9 mmol/L (3.5-5.1); Protein, Total 7.3 g/dL (6.4-8.2); Sodium Level 143 mmol/L (136-145); Thyroid Stim Hormone (TSH) 1.97 uIU/mL (0.358-3.74); Triglycerides 789 mg/dL
== END | disposition home or self-care (01) ==
LOC: POLAB3 09:03
PROVIDERS: Family Provider Family Medicine Geriatric Medicine; PCP Family Medicine Geriatric Medicine; Visit Provider Family Medicine Geriatric Medicine
DX: E11.9 Type 2 diabetes mellitus without complications (principal); E55.9 Vitamin D deficiency, unspecified; E78.5 Hyperlipidemia, unspecified; F52.8 Other sexual dysfunction not due to a substance or known physiological condition; I10 Essential (primary) hypertension
CPT/HCPCS: 36415; 80053; 80061; 82306; 84403; 84443; 85025

== ENCOUNTER → 2019-04-14 | Outpatient (CLI) | payer MEDICARE, SELFPAY ==
[2018-09-27 23:38] VITALS: BMI 25.0
--- NOTE | 2019-04-14 09:59 | ART_ITS ---
Reason For Study: Claudication Procedure A bilateral lower extremity continuous wave Doppler with analog waveform analysis and ankle brachial indexes. Left Segmental Pressures Left brachial= 169mmHg. Left posterior tibial artery = 99mmHg. Left dorsalis pedis artery = 63mmHg. The left dorsalis pedis waveforms are monophasic. The left posterior tibial artery waveforms are monophasic. Right Segmental Pressures Right brachial= 184mmHg. Right posterior tibial artery = 123mmHg. Right dorsalis pedis artery = 73mmHg. The right dorsalis pedis waveforms are monophasic. The right posterior tibial artery waveforms are biphasic. Indices The right ankle brachial index by the dorsalis pedis is 0.40. The right ankle brachial index by the posterior tibial artery is 0.67. The left ankle brachial index by the dorsalis pedis is 0.34. The left ankle brachial index by the posterior tibial artery is 0.54. Interpretation Summary Abnormal bilateral lower extremity arterial study at rest with right REEMA 0.67 and left REEMA 0.54 consistent with moderately severe disease bilaterally. Right brachial systolic pressure 184 and left 169 borderline for suggesting left upper extremity arterial occlusive disease. Ordering Physician: Paul Martinez Referring Physician: Paul Martinez Chi Performed By: Alysia Da Silva RVT
== END | disposition home or self-care (01) ==
LOC: CVS 09:57
PROVIDERS: Family Provider Family Medicine Geriatric Medicine; PCP Family Medicine Geriatric Medicine; Referring Provider Family Medicine Geriatric Medicine; Visit Provider Family Medicine Geriatric Medicine
DX: I73.9 Peripheral vascular disease, unspecified (principal)
CPT/HCPCS: 93922

== ENCOUNTER 2019-05-26 07:17 | Day surgery (SDC) | payer MEDICARE, SELFPAY ==
--- NOTE | 2019-05-10 01:50 | HP_ITS ---
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 [Ecotrin] 81 mg PO DAILY@0800 12/29/15 [History Confirmed 05/10/19] Atorvastatin Calcium 80 mg PO QHS 09/28/18 [History Confirmed 05/10/19] Insulin Glargine [Lantus SoloStar Pen] 10 units SUBCUT BID #1 pen 09/28/18 [Rx Confirmed 05/10/19] Insulin Lispro [Humalog KwikPen] See Protocol SUBCUT ACHS #1 insuln.pen 09/28/18 [Rx Confirmed 05/10/19] Lisinopril/Hydrochlorothiazide [Lisinopril-Hctz 20-12.5 mg Tab] PO BID 09/28/18 [History Confirmed 05/10/19] Insulin Lispro [Humalog KwikPen] 5 unit SUBCUT TIDAC #1 insuln.pen 09/29/18 [Rx Confirmed 05/10/19] [facility] Medical History (Updated 05/10/19 @ 12:45 by María Bashir) HTN (hypertension) (Chronic) History of stroke (Chronic) Hyperglycemia (Acute) Acute CVA (cerebrovascular accident) (Acute) Hypertensive crisis (Acute) KIMI (acute kidney injury) (Acute) Peripheral vascular disease (Chronic) Diabetes mellitus, type 2 (Chronic) Hyperlipidemia (Chronic) CAD (coronary artery disease) (Chronic) Surgical History (Updated 05/10/19 @ 12:46 by María Bashir) Status post coronary artery bypass graft (Chronic) History of angioplasty of peripheral vessel (Acute ~2016) History of angioplasty of peripheral vessel (Acute ~2017) History of cardiac cath (Acute) Family History (Updated 05/10/19 @ 12:52 by María Bashir) Brother Diabetes Mother Hypertension Daughter Diabetes Social History (Updated 05/10/19 @ 13:50 by Valentino Kamara MD) Smoking Status: Former smoker HPI HPI HPI: MODESTO DOMINGUEZ, is a 68 M who presents to the office today for HPI HPI Surgical H&P: Yes HPI: MODESTO DOMINGUEZ, is a 68 M who presents to the office today for surgical consultation regarding severe left lower extremity calf pain. He has both pain with ambulation short distances as well as rest pain. This is been ongoing for a year but has progressively become much more severe. He is a type 2 insulin-dependent diabetic. He has had indiscretions in the past allowing his hemoglobin A1c to get as high as 14. Dr. Martinez has admonished him and he has tight in the control. The patient states that the proximal 4 years ago he had coronary bypass grafting x3. Prior to that he had had a coronary stent placed. His most recent hemoglobin A1c according to the patient is approximately 7. On April 14, 2019 the patient had PVRs without exercise. Moderately severe disease was noted bilaterally as below. The patient is referred by Dr. Martinez and a written copy of my surgical consult recommendations will return to him [facility] [address] [place] [address]. [place] [address] Ankle Brachial Index 04/14/19 1001 MR#: [id number] Name: MODESTO DOMINGUEZ [facility] #:[id number] : 1950 68From: Valentino Kamara MD Attending Dr: Paul Martinez MD, ChiStatus: REG CLI Ordering Dr: Paul Martinez MDDate: 04/14/19 [facility]: Reason For Study: Claudication Procedure A bilateral lower extremity continuous wave Doppler with analog waveform analysis and ankle brachial indexes. Left Segmental Pressures Left brachial= 169mmHg. Left posterior tibial artery = 99mmHg. Left dorsalis pedis artery = 63mmHg. The left dorsalis pedis waveforms are monophasic. The left posterior tibial artery waveforms are monophasic. Right Segmental Pressures Right brachial= 184mmHg. Right posterior tibial artery = 123mmHg. Right dorsalis pedis artery = 73mmHg. The right dorsalis pedis waveforms are monophasic. The right posterior tibial artery waveforms are biphasic. Indices The right ankle brachial index by the dorsalis pedis is 0.40. The right ankle brachial index by the posterior tibial artery is 0.67. The left ankle brachial index by the dorsalis pedis is 0.34. The left ankle brachial index by the posterior tibial artery is 0.54. Interpretation Summary Abnormal bilateral lower extremity arterial study at rest with right REEMA 0.67 and left REEMA 0.54 consistent with moderately severe disease bilaterally. Right brachial systolic pressure 184 and left 169 borderline for suggesting left upper extremity arterial occlusive disease. Ordering Physician: Paul Martinez Referring Physician: Paul Martinez Chi Performed By: Alysia Da Silva RVT 04/14/19 1142 Date Valentino Kamara MD It is of note that January 01, 2016 I performed a abdominal pelvic left lower extremity arteriogram with left peroneal 4 x 2 Powerflex angioplasty and left superficial femoral artery LXM turbo Hawk atherectomy with 6 x 80 mm angioplasty. Findings included complete occlusion of the left anterior tibial and posterior tibial arteries at that time with high-grade 80% stenosis of the proximal left peroneal. There was multi segmental disease of the left superficial femoral artery with 4 areas of stenosis one including an area of short segment occlusion. I was able to position a 7 Taiwanese destination sheath. I treated the peroneal lesion with a 4 x 2 Powerflex. I then predilated the superficial femoral artery with the same balloon and then utilized an L XM turbo Hawk atherectomy device from the mid superficial femoral artery distally to the proximal peroneal. 4 separate passes were performed. CO2 was utilized for much of the procedure. At the completion I had a palpable left PT pulse at 1+. A spider device had been utilized for the procedure. Perclose was used at the completion. Previously on November 14, 2016 and performed a abdominal pelvic right lower extremity arteriogram with a right peroneal 4 x 4 Powerflex angioplasty in the right popliteal and superficial femoral artery 4 x 4 Powerflex angioplasty and LXM turbo Hawk atherectomy with 6 x 4 Powerflex angioplasty. At that time the patient had focal areas of 50 to 60% stenosis of the superficial femoral artery and then in the mid superficial femoral artery 80% stenosis in the proximal popliteal 6% stenosis in the distal popliteal 80% stenosis in the proximal peroneal 90% stenosis ROS General General: Yes weight change; no appetite, fatigue, colon cancer, breast cancer or weakness HEENT HEENT: Yes eye surgery; no difficulty swallowing, eye injury, swollen glands or hoarseness Endo Endocrine: Yes diabetes mellitus; no thyroid disease, thyroid cancer, Hair loss, heat intolerance or cold intolerance Cardio Cardiovascular: Yes heart disease, high blood pressure, heart attack and heart stent; no murmur, pacemaker, atrial fibrillation, palpitations, shortness of breat with exertion or chest pain Resp Respiratory: No shortness of breath, No sleep apnea, No cough, No COPD, No asthma, No emphysema, No wheezing Gastro Gastrointestinal: No abdominal pain, No nausea or vomiting, No diarrhea, No constipation, No blood in stool, No acid reflux, No hemorrhoids, No ulcers, No gallbladder problem, No black,tarry stools Edis Hematologic: No blood thinners, No blood disorders, No bleeding, No anemia, No blood clots Neuro Neurologic: No weakness Exam Const General: comfortable, no acute distress Nutritional Appearance: average body habitus Orientation: alert, awake, oriented x3 HENMT Head: normal to inspection Eyes General: appearance normal, both eyes and all related structures Resp Effort & Inspection: normal respiratory effort Auscultation: clear to auscultation bilaterally Cardio Rate: regular rate Rhythm: regular rhythm Heart Sounds: no murmurs Other: Bilateral carotids are 3+ I do not detect any bruits. Bilateral brachials 3+. Bilateral radial 3+. Bilateral femorals 3+. Left popliteal and DP and PT all 0. The right popliteal is 3+. The right DP and PT 0 GI Palpation: soft, no hepatosplenomegaly Auscultation: normal bowel sounds Other: Not pulsatile or expansile Musc Cervical Spine: normal cervical lordosis Neuro Cognition: normal cognition Extrem Other: Hypertrophic nails bilaterally with loss of hair elevation pallor and dependent rubor. This is quite notable involving the left lower extremity. The left foot is cooler than the right. Capillary refill diminished Psych Affect: normal affect Assessment & Plan Problems 1. Peripheral vascular disease I73.9 Plan Complex 68-year-old gentleman. He has progressive symptoms from multi segmental left lower extremity peripheral vascular occlusive disease. From his previous intervention 2015 he has known occlusion of left anterior and posterior tibial arteries. At that time he had multi segmental disease of the left superficial femoral artery and peroneal. I proposed for him a abdominal pelvic left lower extremity arteriogram with possible endovascular intervention utilizing combination of carbon dioxide or contrast. He is aware of the technique, benefits, risks, alternatives. He is aware of the potential utilization of angioplasty or atherectomy or if need be stenting. I did briefly mention the patient the potential need for future femoral- popliteal bypass. Does not appear that he has had any leg veins harvested. As his peroneal is the only remaining vessel I likely would recommend tertiary referral for that. He has had an opportunity to ask and have questions answered. He has now progressed from simple claudication to intermittent rest pain. I believe that a repeat attempt at improving his vascular supply is pertinent. He is maintained on an 81 mg aspirin. CC: Dr. Juan Kamara M.D., F.A.C.S. Coding Level of Care Code 45055 Diagnoses Peripheral vascular disease I73.9 05/10/19 8810 <Electronically signed by Valentino roberto MD> Date _ Valentino Kamara MD I have re-examined the patient. There are no clinical changes since date of exam.
[2019-05-10 12:52] VITALS: BMI 25.0
[2019-05-25 08:46] VITALS: BMI 24.9
[2019-05-26 07:35] LABS: Hematocrit 42.4 % (40-54); Hemoglobin 13.4 g/dL (13.0-16.5); Mean Corp Hgb Conc 31.6 g/dL (32-36); Mean Corpuscular Hgb 27.5 pg (27.0-32.0); Mean Corpuscular Volume 86.9 fL (80-94); Mean Platelet Vol. 10.2 fl (6.2-12.0); Platelet Count 200 K/mm3 (150-450); RBC Distribution Width CV 13.6 % (11.6-14.6); RBC Distribution Width SD 43.2 fl (35.1-43.9); Red Blood Count 4.88 M/mm3 (4.6-6.2); White Blood Count 9.5 K/mm3 (4.4-11.0)
[2019-05-26 07:44] LABS: Anion Gap 6 (5-15); BUN 40 mg/dL (7-18); BUN/Creat Ratio 15.6 RATIO (10-20); Calcium,Total 8.5 mg/dL (8.5-10.1); Chloride 110 mmol/L (98-107); Creatinine, Serum 2.57 mg/dL (0.70-1.30); EST Glomerular Filtration Rate 26 mL/min (>60); Est Glom Filt Rate - Afr Amer 32 mL/min (>60); Estimated Creatinine Clearance 25.88 ml/min; Glucose 157 mg/dL (74-106); Sodium Level 143 mmol/L (136-145)
[2019-05-26 11:35] LABS: ACT Activated Clotting Time 125 sec (74-137)
[2019-05-26 11:36] LABS: ACT Activated Clotting Time 208 sec (74-137)
[2019-05-26 11:36] LABS: ACT Activated Clotting Time 208 sec (74-137)
[2019-05-26 11:36] LABS: ACT Activated Clotting Time 208 sec (74-137)
--- NOTE | 2019-05-26 11:38 | PCM.OPRPT ---
Problem List (1) Peripheral vascular disease Status: Chronic Comment: status post angioplasty. Report of Operation Date of Procedure: 05/26/19 Pre-Operative Diagnosis: Severe left lower extremity claudication Post-Operative Diagnosis: Multi segmental disease left superficial femoral artery and left popliteal artery with chronic occlusion of the left anterior and posterior tibial arteries Surgery/Procedure Performed:: Abdominal pelvic left lower extremity arteriogram with left superficial femoral artery 4 x 80 mm ever cross angioplasty and LOS Hawk 1 directional atherectomy and left popliteal and superficial femoral artery 5 x 200 mm ever cross angioplasty Description of Surgical Findings:: Timeout and informed consent was obtained. 68-year-old gentleman was taken to the special procedures lab placed on the table. 50 mcg of fentanyl and 2 mg of Versed were given his intravenous sedation 2. Right lateral groins were sterilely prepped and draped. Ultrasound was used to identify the right common femoral artery. Under ultrasound guidance 2% lidocaine was instilled as local anesthetic. Throughout the procedure total 10 cc was used. Under ultrasound guidance a much micropuncture needle was inserted in the right common femoral artery followed by micropuncture wire micropuncture sheath and 035 J-wire and then a 5 [place] short sheath dilator. Using an 035 angled Glidewire 5 [place] universal flush catheter was placed into the distal abdominal aorta. Using 15 cc of carbon dioxide a aortogram with pelvic inspection was obtained. Then using an angled Glidewire at the 5 [place] flush catheter was engaged in the left common iliac. The Glidewire was advanced to the left superficial femoral artery. The flush catheter was removed and an 035 quick cross catheter was placed. Static views were obtained of the left superficial femoral artery popliteal and proximal calf using carbon dioxide. Having achieved that I exchanged out for an 035 stiff Glidewire. The quick cross catheter and 5 [place] sheath were removed and a 7 [place] destination sheath was placed. Utilizing the 035 quick cross catheter and the 035 stiff Glidewire was able to get access through an area of complete occlusion of the left superficial femoral artery. The patient received 8000 units of heparin and then based upon ACT measurements and aliquots received an additional 2000 units totaling 10,000 units of heparin for the procedure. Initially the area of complete occlusion was treated with a 4 x 80 mm ever cross balloon. Follow-up images demonstrated slight improvement. I was able to advance the quick cross catheter down to the popliteal. I placed a 5 mm spider device. I then utilized the LS Hawk 1 and did multiple passes of the area of complete occlusion of the left proximal superficial femoral artery. I additionally did several passes of the left proximal popliteal artery. Having achieved that completion views with carbon dioxide demonstrated significant improvement. Because of diffuse disease involving the entire superficial femoral artery I elected to place a 5 x 200 mm ever cross balloon I performed balloon angioplasty of the popliteal from just proximal to the peroneal up to the origin of the superficial femoral artery. The balloon was inflated to maximum of 15 sona of pressure. Having achieved that I then utilize contrast for final completion views. Marked improvement and resolution of the area of complete occlusion was achieved. Sheaths and wires were removed. A Perclose device was deployed in the right groin. Hemostasis was nicely intact. Patient tolerated the procedure well was taken to the recovery area in satisfactory condition without apparent complication. Total contrast used was only 9 cc. Images demonstrate a patent abdominal aorta bilateral common iliacs internal iliacs and external iliacs. The left common femoral and profundofemoral patent. The left superficial femoral artery occludes over the length of 6 cm in the proximal left superficial femoral. There is diffuse disease in the left mid superficial femoral artery to 70%. The left superior popliteal artery has an area of 70% stenosis. Subsequent to the directional atherectomy and angioplasty now there is resolution of the area of complete occlusion of the proximal left superficial femoral artery albeit with some slight irregular disease. The proximal popliteal artery is patent there is a short area of [id number] dissection. The anterior tibial and posterior tibial are occluded. The left peroneal is the patent vessel. Because of the patient's chronic renal failure I elected not to utilize additional contrast for further imaging down the leg. No complications. The foot was pink and warm at the completion. He tolerated the procedure well. There was debris that was removed from the Hawk one on its serial passes. There was some debris that was also additionally captured within the spider device. Specimens none. Drains none. Blood loss minimal. Valentino Kamara M.D., F.A.C.S. Type of Anesthesia:: IV Sedation, Local
[2019-05-26 15:51] LABS: Bedside Glucose 225 mg/dL (70-110)
== END 2019-05-26 15:56 | disposition home or self-care (01) ==
PROVIDERS: Family Provider Family Medicine Geriatric Medicine; PCP Family Medicine Geriatric Medicine; Referring Provider Surgery; Visit Provider Surgery
DX: I73.9 Peripheral vascular disease, unspecified (principal); I70.92 Chronic total occlusion of artery of the extremities; I10 Essential (primary) hypertension; E11.9 Type 2 diabetes mellitus without complications; E78.00 Pure hypercholesterolemia, unspecified; I25.10 Atherosclerotic heart disease of native coronary artery without angina pectoris; I25.2 Old myocardial infarction; Z86.73 Personal history of transient ischemic attack (TIA), and cerebral infarction without residual deficits; Z95.1 Presence of aortocoronary bypass graft; Z79.82 Long term (current) use of aspirin; Z79.4 Long term (current) use of insulin; Z79.899 Other long term (current) drug therapy; Z87.891 Personal history of nicotine dependence
CPT/HCPCS: 36200; 36245; 36415; 37225; 75625; 75710; 76937; 80048; 82962; 85027; 85347; 93005; 99152; 99153; C1714; J7030; J7040; Q9967; C1725; C1760; C1769; C1884; C1887

== ENCOUNTER → 2019-06-30 12:35 | Outpatient (CLI) | payer MEDICARE, SELFPAY ==
[2019-05-25 08:46] VITALS: BMI 24.9
--- NOTE | 2019-06-30 12:37 | ART_ITS ---
Reason For Study: PAD Procedure A bilateral lower extremity continuous wave Doppler with analog waveform analysis,segmental pressures,and ankle brachial indexes without exercise. Left Segmental Pressures Left brachial= 177mmHg. Left thigh = 180mmHg. Left calf = 159mmHg. Left posterior tibial artery = 173mmHg. Left dorsalis pedis artery = 181mmHg. Left digit = 90 mmHg. The left posterior tibial artery waveforms are biphasic. The left dorsalis pedis waveforms are biphasic. Right Segmental Pressures Right brachial= 155mmHg. Right thigh = 200mmHg. Right calf = 160mmHg. Right posterior tibial artery = 121mmHg. Right dorsalis pedis artery = 125mmHg. Right digit = 99 mmHg. The right posterior tibial artery waveforms are biphasic. The right dorsalis pedis waveforms are biphasic. Indices The right ankle brachial index by the posterior tibial artery is 0.68. The right ankle brachial index by the dorsalis pedis is 0.71. The right digital-brachial index is 0.56. The left ankle brachial index by the posterior tibial artery is 0.98. The left ankle brachial index by the dorsalis pedis is 1.02. The left digital-brachial index is 0.51. Interpretation Summary Moderately severe arterial occlusive disease right lower extremity. Minimal occlusive disease left lower extremity based upon ankle-brachial indices however Doppler waveforms are only biphasic at both the posterior tibial and dorsalis pedis levels suggesting possible artificial elevation of ABIs secondary to medial calcification of vessel and therefore suggesting a possible more significant level of occlusive disease Abnormal bilateral digital brachial indices Ordering Physician: Merary Wise Referring Physician: Valentino Kamara Performed By: Ruthie Dos Santos RDCS/RVT
== END ==
PROVIDERS: Family Provider Family Medicine Geriatric Medicine; PCP Family Medicine Geriatric Medicine; Referring Provider Surgery; Visit Provider Surgery
DX: I73.9 Peripheral vascular disease, unspecified (principal); Z98.62 Peripheral vascular angioplasty status
CPT/HCPCS: 93923

== ENCOUNTER → 2019-07-05 13:24 | Outpatient (CLI) | payer MEDICARE, SELFPAY ==
[2019-05-25 08:46] VITALS: BMI 24.9
[2019-07-05 17:55] LABS: Vitamin D,25 Hydroxy 15.9 ng/mL (29.95-100.01)
[2019-07-05 17:57] LABS: Absolute Lymphocyte Count 2.06 X10^3/uL (0.83-4.51); Absolute Neutrophil Count 5.8 X10^3/uL (2.0-7.7); Basophil# 0.04 X10^3/uL; Basophil% 0.5 % (0-1); Eosinophil# 0.28 X10^3/uL; Eosinophils% 3.2 % (0-5); Hematocrit 43.7 % (40-54); Hemoglobin 13.7 g/dL (13.0-16.5); Lymphocyte # 2.06 X10^3/ul (4.0); Lymphocyte % 23.3 % (19-41); Mean Corp Hgb Conc 31.4 g/dL (32-36); Mean Corpuscular Hgb 27.2 pg (27.0-32.0); Mean Corpuscular Volume 86.7 fL (80-94); Mean Platelet Vol. 10.2 fl (6.2-12.0); Monocyte# 0.67 X10^3/uL; Monocyte% 7.6 % (0-10); NRBC Flagged by Analyzer 0 % (0-5); Neutrophil # 5.75 X10^3/uL (2.7-7.7); Neutrophil % 64.9 % (47-70); Platelet Count 225 K/mm3 (150-450); RBC Distribution Width CV 13.7 % (11.6-14.6); RBC Distribution Width SD 42.4 fl (35.1-43.9); Red Blood Count 5.04 M/mm3 (4.6-6.2); White Blood Count 8.8 K/mm3 (4.4-11.0)
[2019-07-05 18:04] LABS: ALB/GLOB Ratio 0.9 RATIO (0.9-2.4); AST(SGOT) 25 U/L (15-37); Alanine Aminotransfer ALT/SGPT 24 U/L (16-61); Alkaline Phosphatase 91 U/L (45-117); Anion Gap 8 (5-15); BUN 42 mg/dL (7-18); BUN/Creat Ratio 17.8 RATIO (10-20); Calcium,Total 8.9 mg/dL (8.5-10.1); Chloride 106 mmol/L (98-107); Cholesterol 165 mg/dL (200); Creatinine, Serum 2.36 mg/dL (0.70-1.30); EST Glomerular Filtration Rate 29 mL/min (>60); Est Glom Filt Rate - Afr Amer 35 mL/min (>60); Globulin 3.5 g/dL (2.2-4.2); Glucose 152 mg/dL (74-106); High Density Lipoprotein 33 mg/dL; Potassium 4.2 mmol/L (3.5-5.1); Protein, Total 6.5 g/dL (6.4-8.2); Sodium Level 142 mmol/L (136-145); Triglycerides 466 mg/dL
== END ==
PROVIDERS: Family Provider Family Medicine Geriatric Medicine; PCP Family Medicine Geriatric Medicine; Visit Provider Family Medicine Geriatric Medicine
DX: E11.9 Type 2 diabetes mellitus without complications (principal); E55.9 Vitamin D deficiency, unspecified; E78.5 Hyperlipidemia, unspecified; F52.8 Other sexual dysfunction not due to a substance or known physiological condition; I10 Essential (primary) hypertension
CPT/HCPCS: 36415; 80053; 80061; 82306; 84403; 84443; 85025

== ENCOUNTER 2019-07-22 15:20 | Emergency (ER) | payer MEDICARE, SELFPAY ==
[2019-05-25 08:46] VITALS: BMI 24.9
[2019-07-22 15:21] VITALS: BP 152/73; PULSE 98; RESP 18; TEMP 36.7; O2SAT 96; BMI 24.9
--- NOTE | 2019-07-22 15:35 | EKG12_ITS ---
Test Reason : VOMITING Blood Pressure : / mmHG Vent. Rate : 093 BPM Atrial Rate : 091 BPM P-R Int : 000 ms QRS Dur : 104 ms QT Int : 410 ms P-R-T Axes : 000 212 018 degrees QTc Int : 509 ms Atrial Fibrillation Right superior axis deviation Incomplete right bundle branch block Right ventricular hypertrophy Inferior infarct (cited on or before 04-NOV-2012) Prolonged QT Abnormal ECG Confirmed by DILIP MUNIZ ([id number]), assistant editor KILO MACDONALD ([id number]) on 07/28/2019 12:59:21 PM Referred By: DEBO Confirmed By:DILIP MUNIZ
--- NOTE | 2019-07-22 15:36 | CT_ITS ---
STUDY: CT ABDOMEN AND PELVIS WITHOUT CONTRAST REASON FOR EXAM: Male, 68 years old. Fall. Abdominal pain. RADIATION DOSAGE (If Supplied By Facility): CTDIvol = ( 26.43 ) mGy, DLP = ( 4170.53 ) mGycm TECHNIQUE: Transaxial images were obtained from the dome of the diaphragm to the symphysis pubis without oral contrast, and without intravenous contrast. Sagittal and coronal images were reconstructed. Detail is degraded by positioning of the patient''s arms by the side and associated artifact. Individualized dose optimization techniques were used for this CT. COMPARISON: December 28, 2014 FINDINGS: There are sternotomy wires. There is lower lung atelectasis. Normal liver. Normal gallbladder and extrahepatic biliary system. Normal spleen. Normal pancreas. Normal bilateral adrenal glands. Normal right kidney. There is 2.0 cm cyst at the lower pole of the left kidney. Normal visualized stomach. Normal small intestine. There are multiple colonic diverticula consistent with diverticulosis. The appendix is visualized and appears normal. There is diffuse atherosclerotic calcification of the abdominal aorta, without a demonstrated aneurysm. Normal inferior vena cava. Normal retroperitoneum. Normal urinary bladder. There are prostatic calcifications. There is no free fluid in the abdomen or pelvis. Normal abdominal wall. Degenerative change of the spine and hips. CT/Abdomen/Pelvis without Cont IMPRESSION: Colonic diverticulosis. No obstruction or abscess. No fracture. No solid organ injury. Electronically Signed: Hugh Mariscal MD at 18:42 EST , Service support ,
--- NOTE | 2019-07-22 15:39 | ED.DCSUM_ITS ---
- ER Visit Summary Date of Service: 07/22/19 Chief Complaint: Nausea, vomiting History of Present Illness: The patient is a 68 M presenting with nausea, vomiting. He states these symptoms started last night. He states he had vomiting throughout the night. This morning he tried to get out of bed and was dizzy and passed out. He states he laid on the floor for several hours. His eventually found him and called EMS. He complains of abdominal pain, nausea, vomiting. He denies diarrhea or constipation. Denies blood in his stool or emesis. He has diffuse myalgias and mild headache. He has chills with no fever. He did receive a flu shot this year. He denies chest pain or shortness of breath. Denies other complaints. After arrived, she states patient actually had 2 falls today. 1 in the morning and 1 this afternoon. Patient was too weak to stand up and EMS was called after the second fall. She states he was disoriented and dizzy while laying on the floor. Physical Examination: Vitals are stable. Patient is afebrile. Alert no acute distress. HEENT exam is unremarkable. Neck is nontender Lungs are clear and equal bilaterally. Heart is regular rate and rhythm. Abdomen is soft suprapubic tenderness with no guarding or rebound Extremities are unremarkable. Skin is warm and dry. No focal neurologic deficit. Normal strength and sensation. Remainder of exam is unremarkable. Emergency Department Course and Treatment: Patient was given IV fluids, Zofran. EKG is junctional rhythm rate of 93. Chest x-ray shows no acute process. CBC shows white count 14.4. Chemistries show glucose 220, BUN 32, creatinine 2.44. Troponin 0.036. Lactic acid 2.6. CK 469. CT head shows bilateral subdural, subarachnoid, intraparenchymal, and intraventricular hemorrhage. No mass effect or shift of midline. CT C-spine shows multilevel degenerative changes. CT abdomen pelvis shows colonic diverticulosis. No obstruction or abscess. No fracture. No solid organ injury. Findings discussed with patient and family. Discussed with [facility] for transfer. Disposition: Transfer [facility] Impression: Bilateral subdural, subarachnoid, intraparenchymal, intraventricular hemorrhage This note was generated with [employer] dictation software. It may contain incorrect words, spelling, and punctuation that were not noted in review of the chart prior to signing ED Disposition - Plan for ED Patient: Referrals: Paul Martinez Chi, MD [Primary Care Provider] -
--- NOTE | 2019-07-22 15:40 | RAD_ITS ---
STUDY: X-RAY CHEST REASON FOR EXAM: Male, 68 years old. Weakness. Nausea and vomiting. TECHNIQUE: Single AP portable view of the chest. COMPARISON: Comparison is made with prior study dated August 11, 2017. FINDINGS: EKG lead clips are seen. The lungs are clear and expanded. There is no demonstrated pleural abnormality. Sternal cerclage wires and vascular clips are present from a prior sternotomy and coronary artery bypass graft procedure (CABG). Normal mediastinum and job. Normal visualized pulmonary arteries. Normal visualized aortic arch and descending thoracic aorta. Normal visualized thoracic spine. Normal visualized ribs, clavicles, and shoulders. There is no demonstrated abnormality of the visualized soft tissue structures of the upper abdomen. RAD/Chest 1 View (Portable) IMPRESSION: No acute abnormality is seen. Electronically Signed: Attila Cabello, at 15:53 EST , Service support ,
--- NOTE | 2019-07-22 16:03 | CT_ITS ---
STUDY: CT CERVICAL SPINE WITHOUT CONTRAST REASON FOR EXAM: Male, 68 years old. Fall. Pain. RADIATION DOSAGE (If Supplied By Facility): CTDIvol = ( 26.43 ) mGy, DLP = ( 4170.53 ) mGycm TECHNIQUE: High resolution transaxial imaging was performed without contrast material. Sagittal and coronal images were reconstructed. Individualized dose optimization techniques were used for this CT. COMPARISON: None FINDINGS: Normal craniovertebral junction. Normal anterior atlantoaxial articulation. Normal odontoid process. There is straightening of the normal cervical lordosis. There is no acute fracture. Normal vertebral bodies and posterior osseous elements. C2-3: Normal endplates. Normal disc height and morphology. Normal central canal and intervertebral neuroforamina. Facet arthropathy on the right. C3-4: Normal endplates. Normal disc height and morphology. Normal central canal. Facet arthropathy on the right. Uncovertebral spurring with right foraminal narrowing. C4-5: Disc bulge with spurring. Facet spurring. Uncovertebral spurring with left foraminal narrowing. C5-6: Disc space narrowing. Disc bulge and spurring. Ossification of posterior longitudinal ligament. Moderate canal stenosis. Facet and uncovertebral spur and bilateral foraminal narrowing. C6-7: Disc space narrowing. Disc bulge and spurring. Ossification of posterior longitudinal ligament. Moderate canal stenosis. Facet and uncovertebral spur and bilateral foraminal narrowing. C7-T1: Normal endplates. Normal disc height and morphology. Normal central canal and intervertebral neuroforamina. Facet spurring. Normal visualized soft tissue structures. CT/Spine Cervical without Contras IMPRESSION: Multilevel degenerative changes, as described above. Electronically Signed: Hugh Mariscal MD at 18:38 EST , Service support ,
--- NOTE | 2019-07-22 16:03 | CT_ITS ---
We are attempting to reach an attending provider to discuss findings. An addendum with communication details will be sent when the communication is complete. STUDY: CT BRAIN WITHOUT CONTRAST REASON FOR EXAM: Male, 68 years old. Fall. Pain RADIATION DOSAGE (If Supplied By Facility): CTDIvol = ( 26.43 ) mGy, DLP = ( 4170.53 ) mGycm TECHNIQUE: Transaxial CT imaging of the brain was performed without administration of intravenous contrast material. Individualized dose optimization techniques were used for this CT. COMPARISON: August 13, 2017 FINDINGS: Normal soft tissue structures. Normal calvarium. Normal size ventricles and extra-axial spaces for the patient''s age. There is small amount of layering hemorrhage in the atrium of the left more than right lateral ventricle. There are areas of increased density of the periphery of the bilateral frontal and temporal lobes with hemorrhagic contusions and/or regions of subdural and subarachnoid hemorrhage. There is small subdural component along the tentorium on the left. Normal white matter tracts of the cerebral hemispheres. Normal basal ganglia and thalami. Normal brainstem. Focal increased density with punctate hemorrhage of the left cerebellum. There is intracranial hemorrhage. There are no findings of an acute ischemic infarction. Mucosal thickening in the sphenoid sinus. CT/Brain/Head without Contrast IMPRESSION: Bilateral subdural, subarachnoid, intraparenchymal, and intraventricular hemorrhage. No mass effect or shift of midline. Electronically Signed: Hugh Mariscal MD at 18:31 EST , Service support ,
[2019-07-22] MEDS: Ondansetron 4 MG/2 ML Vial IV (16:28)
[2019-07-22] MEDS: 0.9% Normal Saline 1,000 ML 1000 ML IV (16:28)
[2019-07-22 17:20] LABS: Absolute Lymphocyte Count 0.59 X10^3/uL (0.83-4.51); Absolute Neutrophil Count 13.1 X10^3/uL (2.0-7.7); Basophil# 0.02 X10^3/uL; Basophil% 0.1 % (0-1); Hematocrit 45.5 % (40-54); Hemoglobin 14.7 g/dL (13.0-16.5); Lymphocyte # 0.59 X10^3/ul (4.0); Lymphocyte % 4.1 % (19-41); Mean Corp Hgb Conc 32.3 g/dL (32-36); Mean Corpuscular Hgb 27.4 pg (27.0-32.0); Mean Corpuscular Volume 84.7 fL (80-94); Mean Platelet Vol. 10.5 fl (6.2-12.0); Monocyte# 0.71 X10^3/uL; Monocyte% 4.9 % (0-10); NRBC Flagged by Analyzer 0 % (0-5); Neutrophil # 13.05 X10^3/uL (2.7-7.7); Neutrophil % 90.4 % (47-70); POSITIVE DIFFERENTIAL YES; Platelet Count 202 K/mm3 (150-450); RBC Distribution Width CV 13.6 % (11.6-14.6); RBC Distribution Width SD 41.8 fl (35.1-43.9); Red Blood Count 5.37 M/mm3 (4.6-6.2); White Blood Count 14.4 K/mm3 (4.4-11.0)
[2019-07-22 17:24] LABS: Differential Indicated SCAN CRITERIA MET
[2019-07-22 17:28] LABS: ALB/GLOB Ratio 0.7 RATIO (0.9-2.4); AST(SGOT) 28 U/L (15-37); Alanine Aminotransfer ALT/SGPT 19 U/L (16-61); Alkaline Phosphatase 103 U/L (45-117); Anion Gap 10 (5-15); BUN 32 mg/dL (7-18); BUN/Creat Ratio 13.1 RATIO (10-20); Calcium,Total 8.8 mg/dL (8.5-10.1); Chloride 110 mmol/L (98-107); Creatinine, Serum 2.44 mg/dL (0.70-1.30); EST Glomerular Filtration Rate 28 mL/min (>60); Est Glom Filt Rate - Afr Amer 34 mL/min (>60); Estimated Creatinine Clearance 27.25 ml/min; Globulin 4.1 g/dL (2.2-4.2); Glucose 220 mg/dL (74-106); Lipase 53 U/L (73-393); Potassium 4.3 mmol/L (3.5-5.1); Protein, Total 7.1 g/dL (6.4-8.2); Sodium Level 141 mmol/L (136-145)
[2019-07-22 17:32] VITALS: BP 163/74; PULSE 99; RESP 20; O2SAT 99
[2019-07-22 17:34] LABS: Lactic Acid 2.6 mmol/L (0.4-1.9)
[2019-07-22 17:37] LABS: CPK Total, Creatine Kinase 469 U/L (39-308)
[2019-07-22 17:43] LABS: Differential Comment SCANNED
[2019-07-22 19:06] VITALS: BP 175/73; PULSE 97; RESP 18; O2SAT 96
[2019-07-22 19:20] VITALS: BP 161/74; PULSE 93; RESP 20; O2SAT 95
[2019-07-22 20:45] LABS: Reflex Lactate? Y
== END 2019-07-22 19:42 | disposition short-term general hospital (02) ==
LOC: ED 16:08
PROVIDERS: Emergency Provider Emergency Medicine; Family Provider Family Medicine Geriatric Medicine; PCP Family Medicine Geriatric Medicine
DX: I60.9 Nontraumatic subarachnoid hemorrhage, unspecified (principal); I61.5 Nontraumatic intracerebral hemorrhage, intraventricular; I62.00 Nontraumatic subdural hemorrhage, unspecified; J02.9 Acute pharyngitis, unspecified; K57.30 Diverticulosis of large intestine without perforation or abscess without bleeding; I25.10 Atherosclerotic heart disease of native coronary artery without angina pectoris; E11.9 Type 2 diabetes mellitus without complications; I10 Essential (primary) hypertension; E78.00 Pure hypercholesterolemia, unspecified; Z86.73 Personal history of transient ischemic attack (TIA), and cerebral infarction without residual deficits; Z95.1 Presence of aortocoronary bypass graft; Z79.4 Long term (current) use of insulin; Z79.02 Long term (current) use of antithrombotics/antiplatelets; Z79.82 Long term (current) use of aspirin; Z79.899 Other long term (current) drug therapy
CPT/HCPCS: 70450; 71045; 72125; 74176; 80053; 82550; 83605; 83690; 84484; 85025; 87804; 93005; 96361; 96374; 99285; J7030; A4216; J2405

== ENCOUNTER 2019-07-29 20:55 | Inpatient (IN) | payer MEDICARE, SELFPAY ==
[2019-07-29 21:00] VITALS: BP 155/66; PULSE 69; RESP 20; TEMP 36.7; O2SAT 91; BMI 29.0
[2019-07-29 21:26] VITALS: O2SAT 96
[2019-07-29 22:30] LABS: Bedside Glucose 128 mg/dL (70-110)
[2019-07-30] VITALS (7 sets, daily range): BP systolic 123–161; BP diastolic 63–78; PULSE 71–99; RESP 18–20; TEMP 36.6–37.1; O2SAT 93–95
[2019-07-30] MEDS: Acetaminophen 325 MG Tablet 975 MG PO (05:01)
[2019-07-30 05:06] LABS: Bedside Glucose 127 mg/dL (70-110)
--- NOTE | 2019-07-30 08:43 | PCM.HP.STD ---
Problem List (1) Subdural hemorrhage Status: Acute Comment: 07/22/19 (2) Subarachnoid hemorrhage Status: Acute Comment: 07/22/19 (3) Intracerebral hemorrhage Status: Acute Qualifiers: Intracerebral hemorrhage etiology: traumatic Encounter type: subsequent encounter Comment: 07/22/19 (4) Closed intraventricular hemorrhage Status: Acute Comment: 07/22/19 (5) Cephalgia Status: Acute Qualifiers: Intractability: intractable Comment: due to recent intracerebral hemorrhage (6) hx of APLL Status: Chronic Comment: Left leg- 05/16/19 left superficial femoral artery and left popliteal artery angioplasty by Dr. Kamara (7) History of angioplasty of peripheral vessel Status: Chronic Comment: 01/01/16 L Peroneal and L superficial femoral A. angioplasty by Dr. Kamara (8) History of angioplasty of peripheral vessel Status: Chronic Comment: 11/24/18 R Peroneal, R Popliteal and R superficial A. Angioplasty by Dr. Kamara. (9) HTN (hypertension) Status: Chronic Qualifiers: Hypertension type: essential hypertension Qualified Code(s): I10 - Essential (primary) hypertension (10) History of stroke Status: Chronic Comment: Left parietal in August of 2017 (11) Chronic kidney disease, stage 3 Status: Chronic (12) Peripheral vascular disease Status: Chronic Comment: BL ANITAH PVD - status post angioplasty on 3 occasions (13) Status post coronary artery bypass graft Status: Chronic Comment: 3 vessel CABG per pt in 2014? (14) Diabetes mellitus, type 2 Status: Chronic Qualifiers: Diabetes mellitus supervisor intermediates insulin use: without supervisor intermediates use Diabetes mellitus complication status: with circulatory complication Diabetes mellitus complication detail: with other circulatory complications Qualified Code(s): E11.59 - Type 2 diabetes mellitus with other circulatory complications Comment: historically poorly controlled due to non-compliance (15) GERD (gastroesophageal reflux disease) Status: Chronic Qualifiers: Esophagitis presence: esophagitis presence not specified Qualified Code(s): K21.9 - Gastro-esophageal reflux disease without esophagitis (16) Hyperlipidemia Status: Chronic Qualifiers: Hyperlipidemia type: pure hypercholesterolemia Qualified Code(s): E78.00 - Pure hypercholesterolemia, unspecified; E78.0 - Pure hypercholesterolemia (17) CAD (coronary artery disease) Status: Chronic Qualifiers: Coronary Disease-Associated Artery/Lesion type: unspecified vessel or lesion type [place] vs. transplanted heart: unspecified whether [place] or transplanted heart Associated angina: angina presence unspecified Qualified Code(s): I25.10 - Atherosclerotic heart disease of [place] coronary artery without angina pectoris (18) Left ventricular hypertrophy Status: Chronic (19) Diverticulosis Status: Chronic (20) Low vitamin D level Status: Chronic (21) Tobacco dependence in remission Status: Chronic Comment: smoked for only 3 hours History of Present Illness Date of Admission: 07/30/19 Chief Complaint: debility secondary to The pt is a 68-year-old male with a PMH of peripheral vascular disease with angioplasty of the left lower extremity and the right lower extremity by Dr. Kamara, hypertension, history of left parietal ischemic CVA in August 2017, chronic renal failure stage III, coronary artery disease with history of a three-vessel CABG in 2014?, Diabetes mellitus type 2, GERD, hyperlipidemia, diverticulosis, vitamin D deficiency and tobacco dependence in remission who is admitted to the Inpatient rehab unit at [facility] on 07/30/2019 for debility secondary to subdural hemorrhage, subarachnoid hemorrhage, interventricular hemorrhage and intracerebral hemorrhage for greater than 3 hours of therapy daily with a goal of returning home at or near his prior level of independence. The patient lives at home with his and has 4 steps to enter the house. The patient was independent with ADL's, mobility and driving prior to hospitalization. He is c/o a CASTLE...had same complaint yesterday at [facility] and a CT brain showed no changes. Past Medical History Past Medical History (Chronic Problems): Chronic Problems (Last Reviewed 06/09/19 @ 13:32 by Leola Bhagat) Left ventricular hypertrophy (Chronic) Diverticulosis (Chronic) Low vitamin D level (Chronic) Tobacco dependence in remission (Chronic) smoked for only 3 hours hx of APLL (Chronic) Left leg- 05/16/19 left superficial femoral artery and left popliteal artery angioplasty by Dr. Kamara History of angioplasty of peripheral vessel (Chronic ~2016) 01/01/16 L Peroneal and L superficial femoral A. angioplasty by Dr. Kamara History of angioplasty of peripheral vessel (Chronic ~2015) 11/24/18 R Peroneal, R Popliteal and R superficial A. Angioplasty by Dr. Kamara. HTN (hypertension) (Chronic) History of stroke (Chronic) Left parietal in August of 2017 Chronic kidney disease, stage 3 (Chronic) Peripheral vascular disease (Chronic) BL LE PVD - status post angioplasty on 3 occasions Status post coronary artery bypass graft (Chronic) 3 vessel CABG per pt in 2015? Diabetes mellitus, type 2 (Chronic) historically poorly controlled due to non-compliance GERD (gastroesophageal reflux disease) (Chronic) Hyperlipidemia (Chronic) CAD (coronary artery disease) (Chronic) Medical History: Medical History (Last Reviewed 08/02/19 @ 07:57 by Radha Vega DO) HTN (hypertension) (Chronic) I10 History of stroke (Chronic) Z86.73 Left parietal in August of 2017 Peripheral vascular disease (Chronic) I73.9 BL LE PVD - status post angioplasty on 3 occasions Diabetes mellitus, type 2 (Chronic) E11.9 historically poorly controlled due to non-compliance Hyperlipidemia (Chronic) E78.5 CAD (coronary artery disease) (Chronic) I25.10 KIMI (acute kidney injury) (Resolved) N17.9 Hypertensive crisis (Resolved) I16.9 Allergies No Known Allergies Allergy (Verified 07/22/19 15:28) Home Medications: Ambulatory Orders Medication Instructions Recorded Metoprolol Tartrate [Lopressor 50 mg PO BID 08/02/15 (beta laz)] Atorvastatin Calcium [Lipitor] 40 mg PO QHS 07/22/19 Acetaminophen [Tylenol] 975 mg PO Q6H PRN PRN 07/29/19 Cholecalciferol (VIT D3) [Vitamin 3,000 unit PO DAILY 07/29/19 D] Clonidine HCl [Catapres] 0.1 mg PO Q8H PRN PRN 07/29/19 Famotidine [Pepcid] 20 mg PO DAILY 07/29/19 Tamsulosin HCl [Flomax] 0.4 mg PO DAILY 07/29/19 Finasteride 5 mg PO DAILY 07/30/19 Lantus SoloStar Pen 30 units SQ BID 07/30/19 Losartan Potassium [Cozaar] 50 mg PO DAILY 07/30/19 Melatonin 3 mg Tablet 6 mg PO QHS 07/30/19 Nifedipine [Procardia Xl] 30 mg PO DAILY 07/30/19 Oxycodone [Oxyir] 5 mg PO Q8H PRN PRN 07/30/19 Surgical History: Surgical History (Last Reviewed 08/02/19 @ 07:57 by aRdha Vega DO) hx of APLL (Chronic) Left leg- 05/16/19 left superficial femoral artery and left popliteal artery angioplasty by Dr. Kamara History of angioplasty of peripheral vessel (Chronic) Onset Date: ~2016 Z98.62 01/01/16 L Peroneal and L superficial femoral A. angioplasty by Dr. Kamara History of angioplasty of peripheral vessel (Chronic) Onset Date: ~2015 Z98.62 11/24/18 R Peroneal, R Popliteal and R superficial A. Angioplasty by Dr. Kamara. Status post coronary artery bypass graft (Chronic) Z95.1 3 vessel CABG per pt in 2014? Surgical History: coronary bypass surgery, - - Benign soft tissue tumor resection, CABG x 3, PCI x 1, BL tunnel surgery, bilateral lower extremity venous intervention unclear type. Psychiatric History: No pertinent psych hx Lives: Spouse/ Significant Other Smoking Status: Former smoker Tobacco Use: Non-smoker Alcohol: None Drugs: None - *Family History Maternal Family History: Family History (Last Reviewed 08/02/19 @ 07:58 by Radha Vega DO) Brother Diabetes Mother Hypertension Daughter Diabetes History Items: - - Patient notes that his mother was healthy and denies any history of heart disease, diabetes or cancer, passed at age 93. Paternal Family History: Family History (Last Reviewed 08/02/19 @ 07:58 by Radha Vega DO) Brother Diabetes Mother Hypertension Daughter Diabetes History Items: - - Patient notes that his father was healthy with no history of heart disease, diabetes or cancer, passed at age 89 secondary to brain aneurysm rupture. Review of Systems Constitutional: Reports: Weakness. Denies: Chills, Fever, Weight Change HEENT: Reports: Head Aches. Denies: Sinus Congestion, Sinus Drainage Cardiovascular: Denies: Chest Pain, Palpitations Respiratory: Denies: Cough, Shortness of breath at rest, Sputum production Gastrointestinal: Reports: Nausea. Denies: Abdominal Pain, Vomiting Genitourinary: Reports: Retention - has a mason in place. Seen by urology at [facility]. Will follow up with urology for a voiding trial...appt has been scheduled. Denies: Dysuria Musculoskeletal: Denies: Joint Pain, Joint Tenderness Skin: Denies: Jaundice, Rash, Wounds Neurological: Reports: Confusion. Denies: Focal weakness, Numbness, Tingling, Seizures Psychiatric: Denies: Anxiety, Depression, Homicidal Ideations, Suicidal Ideations Hematologic/ Lymphatic: Denies: Easy Bruising, Easy Bleeding, Hx of blood clot VTE Information - Inpt Only VTE Present on Admission: No VTE Mechan Device Prophylaxis: SCD's, Knee High MANUEL Hose VTE Pharm Prophylaxis ordered?: No Reason prophylaxis not ordered:: Treatment Not Indicated - extensive intracerebral bleed due to fall on WARFARIN Patient Problems: Active and Suspected Problems (Last Reviewed 06/09/19 @ 13:32 by Leola Bhagat) Subdural hemorrhage (Acute) 07/22/19 Subarachnoid hemorrhage (Acute) 07/22/19 Intracerebral hemorrhage (Acute) 07/22/19 Closed intraventricular hemorrhage (Acute) 07/22/19 Cephalgia (Acute) due to recent intracerebral hemorrhage - Physical Exam Vitals/I&O's: Vital Signs Temp Pulse Resp BP Pulse Ox 98 F 78 20 H 160/74 H 93 07/30/19 04:58 07/30/19 06:49 07/30/19 04:58 07/30/19 06:49 07/30/19 04:58 Oxygen Flow Rate (L/min) 2 Oxygen Delivery Method Room Air Weight: 185 lb 4.8 oz Body Mass Index (BMI) 29.0 Finger Stick Blood Glucose 480 Orthostatic Vital Signs Start: 07/30/19 06:49 Freq: X1 Status: Active Protocol: Activity Type Activity Date Activity User E-Sign Co-Sign Detail Recorded Client Recorded Date Recorded By Document 07/30/19 06:49 [facility] [id number] 07/30/19 06:50 [facility] 07/30/19 06:49 Orthostatic Vitals Lying -Blood Pressure (90/60-120/80 mm Hg) 160/74 H -Extremity Use Right Arm -Pulse Rate (60-100 beats/min) 78 Intake and Output for Last 24 Hours 07/28/19 07/29/19 07/30/19 23:59 23:59 23:59 Intake Total 600 / 600 Output Total 500 / 500 Balance 100 / 100 General: Alert, Oriented x3, Cooperative, - - HE IS HOLDING HIS HEAD AND C/O A CASTLE HEENT: Atraumatic, PERRLA, EOMI, Normocephalic Oral: No Gingival or Mucosal Lesions/ Ulcerations, Dry Mucosa Neck: Supple, No JVD, No Nodes, Trachea Midline Lungs: No rales, Rhonchi, - - he has a cough that sounds loose...he is swallowing the secretions. Not tachypneic and no conversational dyspnea. No accessory muscle use Cardiovascular: Regular rate, Regular Rhythm, Normal S1, Normal S2, Murmur - ast the second RICS with radiation to the LVOT, LLSB and the apex, No rub noted, No Gallop Abdomen: Bowel Sounds Present, Soft, Non Tender, Non-Distended, No Hepato-splenomegaly Extremities: No clubbing, No cyanosis, Diminished Peripheral Pulses, Edema - of the haqnds, arms, feet and the ankles, pitting, - - femoral pulses are 3/3 BL but the distal pulses in the LE's are very diminished....may be in part due to swelling. Skin: No rashes, - - large area of ecchymosis R forearm, flexor surface......mild increase in the warmth to touch Musculoskeletal: No Tenderness to Palpation of Joints or Extremities, No Muscle Wasting Neurological: Cranial nerves II-XII grossly intact, Neuro grossly intact, - Psych/Mental Status: Appropriate, Flat Affect Laboratory Results 07/29/19 22:24: POC Glucose 128 H 07/30/19 05:03: POC Glucose 127 H Current Medications Acetaminophen (Tylenol) 975 mg PO Q6H PRN PRN PRN Reason: Pain Score 1-10/10 Last Admin: 07/30/19 05:01 Dose: 975 mg Documented by: Atorvastatin Calcium (Lipitor) 40 mg PO QHS JOY Bisacodyl (Dulcolax) 10 mg RECTAL .PRN X 1 PRN PRN Reason: Constipation Cholecalciferol (Vitamin D) 3,000 unit PO DAILY [facility] Clonidine (Catapres) 0.1 mg PO Q8H PRN PRN PRN Reason: SBP>160 OR DBP>99 Famotidine (Pepcid) 20 mg PO DAILY [facility] Losartan Potassium (Cozaar) 50 mg PO DAILY JOY Magnesium Hydroxide (Milk Of Magnesia) 30 ml PO .PRN X 1 PRN PRN Reason: Constipation Metoprolol Tartrate (Lopressor (Beta Laz)) 50 mg PO BID [facility] Nifedipine (Procardia Xl) 30 mg PO DAILY [facility] Non-Formulary Medication (Finasteride) 5 mg PO DAILY [facility] Non-Formulary Medication (Lantus Solostar Pen) 30 units SQ BID [facility] Non-Formulary Medication (Melatonin 3 Mg Tablet) 6 mg PO QHS [facility] Oxycodone HCl (Oxyir) 5 mg PO Q8H PRN PRN PRN Reason: Pain Senna/Docusate Sodium (Senokot-S, Crissy-Colace) 2 tablet PO BID [facility] Tamsulosin HCl (Flomax) 0.4 mg PO DAILY [facility] Assessment/Plan All Active Problems (Last Reviewed 06/09/19 @ 13:32 by Leola Bhagat) Subdural hemorrhage (Acute) Subarachnoid hemorrhage (Acute) Intracerebral hemorrhage (Acute) Closed intraventricular hemorrhage (Acute) Cephalgia (Acute) KIMI (acute kidney injury) (Resolved) Benign soft tissue neoplasm (Resolved) Community acquired pneumonia (Resolved) Hyperglycemic crisis in diabetes mellitus (Resolved) Hypertensive crisis (Resolved) Vertigo (Resolved) Impressions 1. Debility due to Subdural hemorrhage, intracerebral hemorrhage, interventricular hemorrhage and subarachnoid hemorrhage sustained in a fall while on Warfarin. He is confused and likely has TBI in addition to intracerebral hemorrhage. 2. cough - productive but, swallowing the secretions. 3. CRF stage 3-4 4. DM II 5. CAD with hx of CABG 6. PVD 7. anemia due to blood loss 8. recent UTI more likely than not related to urine retention. Seen by urology and started on Flomax. 9. Hyperlipidemia/diverticulosis/vitamin D deficiency/tobacco dependence in remission/previous left parietal ischemic CVA in August 2017 - chronic PLAN PT for gait stability OT for ADL's ST for evaluation Analgesics as needed Bowel protocol Fall precautions Assess for Anxiety/Depression GI prophylaxis with famotidine DVT prophylaxis with heparin 5000 units subcu every 12 hours Follow up with Dr. Esteban as an OP Keppra for seizure prophylaxis Code Visit Inpatient E&M: 38341 Init Hosp L3
[2019-07-30] MEDS: Finasteride 5 MG Tablet PO (10:24)
[2019-07-30] MEDS: Famotidine 20 MG Tablet PO (10:24)
[2019-07-30] MEDS: Losartan Potassium 50 MG Tablet PO (10:24)
[2019-07-30] MEDS: Senna/Docusate Sodium 1 Tablet 2 TABLET PO ×2 (10:24→22:22)
[2019-07-30] MEDS: Tamsulosin HCl 0.4 MG Capsule PO (10:24)
[2019-07-30] MEDS: Metoprolol Tartrate 50 MG Tablet PO ×2 (10:25→22:22)
[2019-07-30 12:05] LABS: Bedside Glucose 121 mg/dL (70-110)
--- NOTE | 2019-07-30 12:06 | CASEMGMT ---
Social Work PHQ-9 completed. Score:07/07, moderate depression. IDT aware. Cha Donnelly, [employer]ACHINE SOFTWARE DEVELOPMENT SPECIALIST
--- NOTE | 2019-07-30 13:31 | RAD_ITS ---
STUDY: X-RAY CHEST REASON FOR EXAM: Male, 68 years old. COUGH TECHNIQUE: 2 views COMPARISON: Prior chest radiograph July 22, 2019 FINDINGS: Reduced inspiration with new bilateral posterior lower lobe infiltrates left greater than right. Negative for substantial pleural effusion. Normal size heart. Status post prior midline sternotomy. Normal visualized pulmonary arteries. There is atherosclerotic calcification of the aortic arch with tortuosity. There are diffuse degenerative changes of the visualized thoracic spine. Normal visualized ribs, clavicles, and shoulders. There is no demonstrated abnormality of the visualized soft tissue structures of the upper abdomen. RAD/Chest PA and Lateral IMPRESSION: New posterior lower lobe infiltrate/atelectasis with a reduced inspiration from prior exam. Electronically Signed: Pauline Page MD at 17:11 EST , Service support ,
[2019-07-30] MEDS: Ondansetron ODT 4 MG Tablet PO (14:29)
[2019-07-30] MEDS: Acetaminophen 500 MG Tablet 1000 MG PO ×2 (14:29→22:22)
[2019-07-30 14:54] LABS: Absolute Lymphocyte Count 1.09 X10^3/uL (0.83-4.51); Absolute Neutrophil Count 9.9 X10^3/uL (2.0-7.7); Basophil# 0.03 X10^3/uL; Basophil% 0.2 % (0-1); Eosinophil# 0.11 X10^3/uL; Eosinophils% 0.9 % (0-5); Hematocrit 37.1 % (40-54); Hemoglobin 12.1 g/dL (13.0-16.5); Lymphocyte # 1.09 X10^3/ul (4.0); Lymphocyte % 8.8 % (19-41); Mean Corp Hgb Conc 32.6 g/dL (32-36); Mean Corpuscular Hgb 27.4 pg (27.0-32.0); Mean Corpuscular Volume 83.9 fL (80-94); Mean Platelet Vol. 9.6 fl (6.2-12.0); Monocyte# 1.05 X10^3/uL; Monocyte% 8.5 % (0-10); NRBC Flagged by Analyzer 0 % (0-5); Neutrophil # 9.87 X10^3/uL (2.7-7.7); Neutrophil % 80.2 % (47-70); Platelet Count 259 K/mm3 (150-450); RBC Distribution Width SD 42.5 fl (35.1-43.9); Red Blood Count 4.42 M/mm3 (4.6-6.2); White Blood Count 12.3 K/mm3 (4.4-11.0)
[2019-07-30 15:10] LABS: ALB/GLOB Ratio 0.6 RATIO (0.9-2.4); AST(SGOT) 38 U/L (15-37); Alanine Aminotransfer ALT/SGPT 50 U/L (16-61); Albumin, Serum 2.1 g/dL (3.2-5.0); Alkaline Phosphatase 82 U/L (45-117); Anion Gap 5 (5-15); BUN 37 mg/dL (7-18); BUN/Creat Ratio 17.5 RATIO (10-20); Calcium,Total 8.1 mg/dL (8.5-10.1); Chloride 111 mmol/L (98-107); Creatinine, Serum 2.11 mg/dL (0.70-1.30); EST Glomerular Filtration Rate 33 mL/min (>60); Est Glom Filt Rate - Afr Amer 40 mL/min (>60); Estimated Creatinine Clearance 31.52 ml/min; Globulin 3.7 g/dL (2.2-4.2); Glucose 120 mg/dL (74-106); Potassium 3.9 mmol/L (3.5-5.1); Protein, Total 5.8 g/dL (6.4-8.2); Sodium Level 141 mmol/L (136-145)
[2019-07-30] MEDS: oxyCODONE 5 MG Tablet PO (16:20)
[2019-07-30 16:40] LABS: Bedside Glucose 100 mg/dL (70-110)
[2019-07-30 21:40] LABS: Bedside Glucose 131 mg/dL (70-110)
[2019-07-30] MEDS: Atorvastatin Calcium 40 MG Tablet PO (22:22)
[2019-07-30] MEDS: MELATONIN 3 MG TABLET PO (22:23)
[2019-07-31] MEDS: Acetaminophen 500 MG Tablet 1000 MG PO ×3 (05:12→22:53)
[2019-07-31] MEDS: oxyCODONE 5 MG Tablet PO (05:22)
[2019-07-31 07:11] LABS: Bedside Glucose 77 mg/dL (70-110)
[2019-07-31 07:17] VITALS: BP 195/78; PULSE 64; RESP 18; TEMP 36.7; O2SAT 93
[2019-07-31 08:00] VITALS: BP 174/79; PULSE 66
[2019-07-31 08:02] VITALS: PULSE 80
[2019-07-31] MEDS: Metoprolol Tartrate 50 MG Tablet PO ×2 (08:02→22:54)
[2019-07-31] MEDS: Famotidine 20 MG Tablet PO (08:02)
[2019-07-31] MEDS: Senna/Docusate Sodium 1 Tablet 2 TABLET PO ×2 (08:02→22:53)
[2019-07-31] MEDS: Tamsulosin HCl 0.4 MG Capsule PO (08:04)
[2019-07-31] MEDS: Finasteride 5 MG Tablet PO (08:04)
[2019-07-31] MEDS: Losartan Potassium 50 MG Tablet PO (08:05)
[2019-07-31] MEDS: cloNIDine HCl 0.1 MG Tablet PO (08:14)
[2019-07-31 11:43] VITALS: BP 157/76; PULSE 59
[2019-07-31 12:00] LABS: Bedside Glucose 73 mg/dL (70-110)
[2019-07-31 16:21] LABS: Bedside Glucose 98 mg/dL (70-110)
[2019-07-31 20:56] LABS: Bedside Glucose 86 mg/dL (70-110)
[2019-07-31 22:00] VITALS: BP 142/62; PULSE 70; RESP 16; TEMP 36.7; O2SAT 94
[2019-07-31 22:54] VITALS: BP 146/62; PULSE 70
[2019-07-31] MEDS: MELATONIN 3 MG TABLET PO (22:54)
[2019-07-31] MEDS: Atorvastatin Calcium 40 MG Tablet PO (22:55)
[2019-07-31] MEDS: Glucerna Shake 120 ML LIQUID PO (22:56)
[2019-08-01] VITALS (7 sets, daily range): BP systolic 155–193; BP diastolic 76–90; PULSE 60–70; RESP 14–20; TEMP 36.4–36.8; O2SAT 93–94
[2019-08-01] MEDS: oxyCODONE 5 MG Tablet PO (03:20)
--- NOTE | 2019-08-01 03:20 | NURSING ---
PT WANTS TO USE TRY TO HAVE A BM. PLACE ON BEDPAN. PT C/P CASTLE. PT REMAINS A/O X 3. ABLE TO OLGUIN. DENIES NUMBNESS/TINGLING TO ARMS OR LEGS. SPEECH IS CLEAR. PT HAS SMALL BM.
--- NOTE | 2019-08-01 04:11 | NURSING ---
PT RESTING QUIETLY WITH EYES CLOSED. AWAKENS EASILY AND DENIES HAVING ANY PAIN. RETURNS TO RESTING WITH EYES CLOSED.
--- NOTE | 2019-08-01 06:22 | NURSING ---
BLOOD SUGAR IS 52. PT AWAKENS EASILY. DRINKS ORANGE JUICE WITH SUGAR PACKETS EASILY.
[2019-08-01] MEDS: cloNIDine HCl 0.1 MG Tablet PO ×2 (06:32→14:30)
[2019-08-01] MEDS: Acetaminophen 500 MG Tablet 1000 MG PO ×3 (06:32→20:57)
--- NOTE | 2019-08-01 06:42 | NURSING ---
REPEAT BLOOD SUGAR IS 58. REPEAT OJ/SUGAR AND CRACKERS WITH PB GIVEN TO PT. CALL PLACED TO HOSPITALIST [facility]IA [facility] PLASTERER HELPER.
[2019-08-01 06:45] LABS: Bedside Glucose 52 mg/dL (70-110)
[2019-08-01 06:45] LABS: Bedside Glucose 58 mg/dL (70-110)
--- NOTE | 2019-08-01 06:49 | NURSING ---
DR JENNIFER LEIGH NOTIFIED OF PT'S BLOOD SUGAR READINGS AND TREATMENT THUS FAR. DR RODRIGUEZ WILL PUT IN ORDER FOR INSULIN CHANGE.
--- NOTE | 2019-08-01 06:49 | PCM.PN.BLA ---
Progress Note Patients blood glucose was in the fifties x2 times and received glucose and other food. Will discontinue lantus. STROKE Vital Signs/Narrative: Vital Signs Temp Pulse Resp BP Pulse Ox 08/01/19 06:24 97.6 F L 70 20 H 193/90 H 94
--- NOTE | 2019-08-01 06:59 | NURSING ---
BLOOD SUGAR IS 68. PT PROVIDED WITH CHOCOLATE MILD TO DRINK.
[2019-08-01 07:21] LABS: Bedside Glucose 63 mg/dL (70-110)
[2019-08-01 07:21] LABS: Bedside Glucose 68 mg/dL (70-110)
--- NOTE | 2019-08-01 08:00 | NURSING ---
Blood sugar checked again twice in the last hour and still hypoglycemic but asymptomatic. Patient currently took 4 oz of juice again but had refused the juice prior when blood sugar was low. Much 1:1 provided.
[2019-08-01 08:06] LABS: Bedside Glucose 62 mg/dL (70-110)
[2019-08-01 08:06] LABS: Bedside Glucose 66 mg/dL (70-110)
[2019-08-01] MEDS: Finasteride 5 MG Tablet PO (08:29)
[2019-08-01] MEDS: Metoprolol Tartrate 50 MG Tablet PO ×2 (08:29→20:57)
[2019-08-01] MEDS: Senna/Docusate Sodium 1 Tablet 2 TABLET PO (08:29)
[2019-08-01] MEDS: Tamsulosin HCl 0.4 MG Capsule PO (08:29)
[2019-08-01] MEDS: Famotidine 20 MG Tablet PO (08:30)
[2019-08-01] MEDS: Losartan Potassium 50 MG Tablet PO (08:30)
[2019-08-01 08:40] LABS: Bedside Glucose 81 mg/dL (70-110)
[2019-08-01 08:50] LABS: Bedside Glucose 112 mg/dL (70-110)
--- NOTE | 2019-08-01 09:30 | NURSING ---
Blood sugar now stabilized and Dr. Vega sent cortex page.
[2019-08-01 09:56] LABS: Bedside Glucose 142 mg/dL (70-110)
[2019-08-01 11:11] LABS: Bedside Glucose 205 mg/dL (70-110)
--- NOTE | 2019-08-01 14:30 | NURSING ---
Dr. Vega aware of blood pressure readings.
[2019-08-01] MEDS: Glucerna Shake 120 ML LIQUID PO ×2 (14:36→18:52)
[2019-08-01 16:46] LABS: Bedside Glucose 119 mg/dL (70-110)
[2019-08-01] MEDS: MELATONIN 3 MG TABLET PO (20:56)
[2019-08-01] MEDS: Atorvastatin Calcium 40 MG Tablet PO (20:56)
[2019-08-01 21:40] LABS: Bedside Glucose 152 mg/dL (70-110)
[2019-08-01] MEDS: guaiFENesin 10 ML UDC (200MG/10ML) PO (22:02)
[2019-08-02] VITALS (14 sets, daily range): BP systolic 117–240; BP diastolic 67–82; PULSE 58–71; RESP 16–17; TEMP 36.7–37.1; O2SAT 93–94
[2019-08-02] MEDS: Acetaminophen 500 MG Tablet 1000 MG PO ×3 (05:24→19:57)
[2019-08-02] MEDS: cloNIDine HCl 0.1 MG Tablet PO ×2 (05:24→17:57)
--- NOTE | 2019-08-02 05:37 | NURSING ---
staff to room to give am medications and check vs, bp noted to be elevated and pt moaning . pt denied pain when first asked. bp was obtained manually and was 240/80 and ap was 58, temp was 98.8 and resp were 20. pt continued to moan and stating his head was hurting . rn to recheck bp for verification. prn clonidine was given with scheduled tylenol. accucheck was taken at this time as well and was 100. medications given in applesauce and po fluids offered and pt took a sip. will recheck bp
[2019-08-02] MEDS: oxyCODONE 5 MG Tablet PO (05:58)
--- NOTE | 2019-08-02 06:01 | NURSING ---
pt bp rechecked at this time was 211/82 with ap of 63 via monitor, pt reports that his h/a is worse but gives it a 7/10 on pain scale rn to give oxyir for h/a, will continue to monitor bp
--- NOTE | 2019-08-02 06:16 | NURSING ---
RATES HEADACHE PAIN #3 NOW. RESTING QUIETLY WITH EYES CLOSED.
--- NOTE | 2019-08-02 06:23 | NURSING ---
CALL PLACED TO HOSPITALIST [facility]IA [facility] ULTRASOUND TECHNOL.
--- NOTE | 2019-08-02 06:26 | NURSING ---
DR GREEN UPDATED ON PT'S BP READINGS AND HEADACHE AND MEDS GIVEN THUS FAR. INSTRUCTED TO GIVEN TODAY'S 1000 BP MEDS NOW.
[2019-08-02 06:30] LABS: Bedside Glucose 100 mg/dL (70-110)
--- NOTE | 2019-08-02 06:31 | PN_ITS ---
Progress Note Afebile since admission BP's are not adequately controlled....medications adjusted today Maintaining appropriate oxygen saturation on RA Oral intake is better. P.o. intake on 08/01/2019 was 1310. He has good urine output. He was seen on TEAM rounds today and given the opportunity to ask questions....he did not have questions Discussed with nursing - he is getting more alert as time passes. Eating good. Had some nausea and a CASTLE this AM when the BP was elevated.....both are better since the BP is coming down. Reviewed the PT/OT/ST notes Medication list reviewed. All lab was personally reviewed from this morning. The white blood cell count is 11.3 (down from 12.8 at admission) with 78% neutrophils. Hemoglobin is stable at 11.6 and platelets are within normal limits. The ESR is 59 and the CRP is 39.8. BUN and creatinine have improved and are 28 and 1.91 today, down from 37 and 2.11 at admission. Hemoglobin A1c is 6.9. LFTs are unremarkable. No seizures since admission. CXR looks more like atelectasis than infiltrates and he is AF. He is alert and pleasant. He is appropriate with me this morning. He denies CP and also denies SOB. Less cough today....coughed only after the first 1-2 deep breathes Lungs - CTA after a few deep breaths.....decreased in the bases. No tachypnea and no conversational dyspnea. I watched him do the IS and he is consistently getting up to 1,000 and he did not need cuing in order to do it properly. Heart - RRR, no gallop and no ectopy no peripheral edema, no cyanosis, no rossana's Abd - soft, ND, no guarding with palpation, normal BS's in all quadrants No focal neurologic deficits. Impressions 1. Debility due to recent subdural hemorrhage, interventricular hemorrhage, intracerebral hemorrhage and SAH sustained in fall while on ASA and Plavix. The fall was preceded by a few days of vomiting and he was likely orthostatic. 2. dysphagia 3. HTN - not adequately controlled. Hydralazine 25 mg TID added to his drug regimen and the Cozaar was increased to 100 mg daily. 4. Stage III CRF 5. urine retention - causing Hydronephrosis. Seen by urology at [facility] and s tarted on Flomax and Proscar. He is to follow up with urology for a voiding trial. 6. atelectasis/cough......Lungs are CTA after a few deep breaths and he really only coughs now after the initial 2 deep breaths 7. N/N anemia due to acute blood loss from the intracerebral bleed 8. DM II - well controlled 9. suspect the increase in the ESR and the CRP are due to inflammation related to the blood in the brain. Urine is pale and clear today. Continue therapy. Adjust antihypertensives as necessary to keep the BP under 135/80 STROKE Vital Signs/Narrative: Vital Signs Pulse BP 08/02/19 06:15 220/80 H 08/02/19 05:30 62 211/82 H 08/02/19 05:15 58 L 240/80 H Code Visit Inpatient E&M: 75450 Subs Hosp L2
[2019-08-02] MEDS: hydrALAZINE 25 MG Tablet PO ×3 (06:40→19:57)
[2019-08-02] MEDS: Metoprolol Tartrate 50 MG Tablet PO ×2 (06:46→19:58)
[2019-08-02] MEDS: Losartan Potassium 100 MG Tablet PO (06:46)
--- NOTE | 2019-08-02 06:48 | NURSING ---
PT IS PAIN FREE. LABS BEING DRAWN.
[2019-08-02 07:00] LABS: Absolute Lymphocyte Count 1.05 X10^3/uL (0.83-4.51); Absolute Neutrophil Count 8.9 X10^3/uL (2.0-7.7); Basophil# 0.04 X10^3/uL; Basophil% 0.4 % (0-1); Eosinophil# 0.38 X10^3/uL; Eosinophils% 3.4 % (0-5); Hematocrit 35.6 % (40-54); Hemoglobin 11.6 g/dL (13.0-16.5); Lymphocyte # 1.05 X10^3/ul (4.0); Lymphocyte % 9.3 % (19-41); Mean Corp Hgb Conc 32.6 g/dL (32-36); Mean Corpuscular Hgb 27.5 pg (27.0-32.0); Mean Corpuscular Volume 84.4 fL (80-94); Mean Platelet Vol. 9.1 fl (6.2-12.0); Monocyte# 0.94 X10^3/uL; Monocyte% 8.3 % (0-10); NRBC Flagged by Analyzer 0 % (0-5); Neutrophil # 8.89 X10^3/uL (2.7-7.7); Neutrophil % 78.2 % (47-70); Platelet Count 255 K/mm3 (150-450); RBC Distribution Width SD 42.5 fl (35.1-43.9); Red Blood Count 4.22 M/mm3 (4.6-6.2); White Blood Count 11.3 K/mm3 (4.4-11.0)
[2019-08-02 07:17] LABS: Anion Gap 3 (5-15); BUN 28 mg/dL (7-18); BUN/Creat Ratio 14.7 RATIO (10-20); Calcium,Total 7.6 mg/dL (8.5-10.1); Chloride 110 mmol/L (98-107); Creatinine, Serum 1.91 mg/dL (0.70-1.30); EST Glomerular Filtration Rate 37 mL/min (>60); Est Glom Filt Rate - Afr Amer 45 mL/min (>60); Estimated Creatinine Clearance 34.82 ml/min; Glucose 120 mg/dL (74-106); Potassium 4.1 mmol/L (3.5-5.1); Sodium Level 141 mmol/L (136-145)
[2019-08-02 07:30] LABS: Erythrocyte Sedimentation Rate 59 mm/hr (0-20); Hemoglobin A1c 6.9 % (4.2-6.3)
--- NOTE | 2019-08-02 08:00 | NURSING ---
Dr. Vega aware of blood pressure readings.
[2019-08-02] MEDS: Tamsulosin HCl 0.4 MG Capsule PO (08:07)
[2019-08-02] MEDS: NYSTATIN 500,000 UNIT/5 ML UDC 500000 UNIT PO ×4 (08:07→21:24)
[2019-08-02] MEDS: Famotidine 20 MG Tablet PO (08:08)
[2019-08-02] MEDS: Senna/Docusate Sodium 1 Tablet 2 TABLET PO ×2 (08:09→21:00)
[2019-08-02] MEDS: Glucerna Shake 120 ML LIQUID PO ×2 (08:13→17:01)
[2019-08-02] MEDS: Ondansetron ODT 4 MG Tablet PO ×2 (08:24→17:57)
--- NOTE | 2019-08-02 10:00 | NURSING ---
BP has improved but still elevated. Dr. Vega aware.
[2019-08-02] MEDS: levETIRAcetam 500 MG Tablet PO ×2 (11:01→20:59)
[2019-08-02] MEDS: Finasteride 5 MG Tablet PO (11:01)
--- NOTE | 2019-08-02 11:08 | CASEMGMT ---
Social Work IDT met with patient for Team Meeting. Discussed patient's progress in therapy. Pt is mod x2 assist to get to edge of bed, standing at min assist x2 with FWW walked a few steps, sta in chair for 40 mins, SerraLift to transfer. Pt can feed self at times, some times needs assistance. Nursing is using total assist for ADLs but has good upper body strength and ROM. Pt working with ST for mech soft and nectar thick diet. Pt aspirates but will begin trials of mendoza free water protocol. Lungs are diminished and encouraged to keep coughing up secretions. Explained insurance with [employer] 08/05 and continued stay is not guaranteed. Will continue to follow. Cha Donnelly, ASSISTANT PROFESSOR OF CRIMINAL JUSTICE BATCH AND FURNACE OPERATOR
[2019-08-02 11:21] LABS: Bedside Glucose 131 mg/dL (70-110)
[2019-08-02 12:58] LABS: Partial Thromboplast Time 28.1 Seconds (24.1-36.2)
[2019-08-02] MEDS: Heparin Injection (Vial) 5,000 UNIT/ML VIAL 5000 UNIT SC ×2 (13:30→21:18)
--- NOTE | 2019-08-02 17:15 | CPS ---
pt unable to complete proper demonstration at this time.
--- NOTE | 2019-08-02 17:17 | CPS ---
pt was able to be instructed by nursing this morning, was able to do about 500. When tried this afternoon, the pt was unable to comprehend the exercise.
[2019-08-02 17:31] LABS: Bedside Glucose 117 mg/dL (70-110)
--- NOTE | 2019-08-02 20:13 | NURSING ---
family present in the room with pt at 1900 and food tray given pt encouraged to drink juice eat soup and eat pears. pt refused to eat for spouse but would eat for staff. pt repositioned to recliner for eating . spouse encouraged to assist pt with IS and did so. bp medications given early d/t elevated bp will continue to monitor
[2019-08-02] MEDS: MELATONIN 3 MG TABLET PO (20:59)
[2019-08-02] MEDS: Atorvastatin Calcium 40 MG Tablet PO (21:00)
[2019-08-02] MEDS: guaiFENesin 10 ML UDC (200MG/10ML) PO (21:20)
[2019-08-02 21:50] LABS: Bedside Glucose 178 mg/dL (70-110)
[2019-08-02] MEDS: Menthol/Lanolin/Calamine/Znox 113 GM Tube 1 APPLIC TOPICAL (22:05)
[2019-08-03] VITALS (10 sets, daily range): BP systolic 174–200; BP diastolic 70–92; PULSE 58–66; RESP 18; TEMP 36.3; O2SAT 96
--- NOTE | 2019-08-03 03:47 | NURSING ---
Reviewed and agree with NAVY SENIOR OFFICER documentation and charting.
[2019-08-03] MEDS: hydrALAZINE 25 MG Tablet PO (05:00)
[2019-08-03] MEDS: cloNIDine HCl 0.1 MG Tablet PO (05:00)
[2019-08-03] MEDS: Acetaminophen 500 MG Tablet 1000 MG PO ×3 (05:00→21:31)
--- NOTE | 2019-08-03 06:45 | NURSING ---
0500 vs take and bp is noted to be elevated and rn to verify. clonidine given as per order bp 200/92 and ap 64. will recheck vs
[2019-08-03 06:46] LABS: Bedside Glucose 121 mg/dL (70-110)
--- NOTE | 2019-08-03 06:47 | NURSING ---
recheck of vs was 194/84 and ap was 62 at 0620 and was done manually per rn recheck of bp at the time was 184/72 ap was 64 at 0651, and was completed manually per rn
[2019-08-03] MEDS: Glucerna Shake 120 ML LIQUID PO ×4 (08:15→21:33)
[2019-08-03] MEDS: Menthol/Lanolin/Calamine/Znox 113 GM Tube 1 APPLIC TOPICAL (08:15)
[2019-08-03] MEDS: levETIRAcetam 500 MG Tablet PO ×2 (08:19→21:30)
[2019-08-03] MEDS: Metoprolol Tartrate 50 MG Tablet PO ×2 (08:19→21:31)
[2019-08-03] MEDS: Heparin Injection (Vial) 5,000 UNIT/ML VIAL 5000 UNIT SC ×2 (08:19→21:33)
[2019-08-03] MEDS: Losartan Potassium 100 MG Tablet PO (08:19)
[2019-08-03] MEDS: Tamsulosin HCl 0.4 MG Capsule PO (08:19)
[2019-08-03] MEDS: Famotidine 20 MG Tablet PO (08:19)
[2019-08-03] MEDS: NYSTATIN 500,000 UNIT/5 ML UDC 500000 UNIT PO ×4 (08:20→21:30)
[2019-08-03] MEDS: Finasteride 5 MG Tablet PO (08:20)
[2019-08-03] MEDS: Senna/Docusate Sodium 1 Tablet 2 TABLET PO ×2 (08:20→21:31)
--- NOTE | 2019-08-03 11:32 | PCM.PN.BLA ---
Progress Note Afebrile Blood pressures are still not adequately controlled. Cozaar 100 mg daily, Metoprolol 50 mg BID, Hydralazine 25 mg TID. Alert and appropriate Lungs - CTA Heart - RRR, no gallop no edema Impressions 1. HTN - not adequately controlled. Hesitate to add a diuretic, he is lightheaded but, he was approved for thin liquids and his intake is good. Will try a low dose of HCTZ and monitor orthostatics for the next few days. Also add Amlodipine 5 mg at HS since the 5 AM BP's seem to be most elevated. Cozaar 10 mg daily Hydralazine 50 mg TID Metoprolol 50 mg BID Amlodipine 5 mg Q HS HCTZ 25 mg daily STROKE Vital Signs/Narrative: Vital Signs Pulse BP 08/03/19 10:00 180/72 H 08/03/19 08:19 64 Code Visit Inpatient E&M: 77619 Subs Hosp L1
[2019-08-03 11:56] LABS: Bedside Glucose 148 mg/dL (70-110)
[2019-08-03] MEDS: hydrALAZINE 50 MG Tablet PO ×2 (14:22→21:30)
[2019-08-03] MEDS: Nystatin Powder 15gm Bottle 1 APPLIC TOPICAL (14:22)
[2019-08-03] MEDS: hydroCHLOROthiazide 25 MG Tablet PO (14:22)
[2019-08-03 16:45] LABS: Bedside Glucose 147 mg/dL (70-110)
[2019-08-03] MEDS: MELATONIN 3 MG TABLET PO (21:31)
[2019-08-03] MEDS: amLODIPine 5 MG Tablet PO (21:31)
[2019-08-03] MEDS: Atorvastatin Calcium 40 MG Tablet PO (21:32)
[2019-08-03 22:00] LABS: Bedside Glucose 126 mg/dL (70-110)
[2019-08-04] VITALS (9 sets, daily range): BP systolic 143–210; BP diastolic 66–87; PULSE 66–83; RESP 16; TEMP 36.6–36.8; O2SAT 93–94
[2019-08-04] MEDS: Acetaminophen 500 MG Tablet 1000 MG PO ×3 (06:13→21:11)
[2019-08-04] MEDS: cloNIDine HCl 0.1 MG Tablet PO (06:13)
[2019-08-04] MEDS: hydrALAZINE 50 MG Tablet PO ×3 (06:13→21:08)
[2019-08-04 06:25] LABS: Bedside Glucose 113 mg/dL (70-110)
[2019-08-04] MEDS: Senna/Docusate Sodium 1 Tablet 2 TABLET PO ×2 (07:57→21:11)
[2019-08-04] MEDS: NYSTATIN 500,000 UNIT/5 ML UDC 500000 UNIT PO ×4 (07:57→21:11)
[2019-08-04] MEDS: Losartan Potassium 100 MG Tablet PO (07:58)
[2019-08-04] MEDS: Famotidine 20 MG Tablet PO (07:58)
[2019-08-04] MEDS: Tamsulosin HCl 0.4 MG Capsule PO (07:58)
[2019-08-04] MEDS: Metoprolol Tartrate 50 MG Tablet PO ×2 (07:59→21:10)
[2019-08-04] MEDS: hydroCHLOROthiazide 25 MG Tablet PO (07:59)
[2019-08-04] MEDS: levETIRAcetam 500 MG Tablet PO ×2 (07:59→21:09)
[2019-08-04] MEDS: Finasteride 5 MG Tablet PO (08:06)
[2019-08-04] MEDS: Nystatin Powder 15gm Bottle 1 APPLIC TOPICAL ×2 (08:15→21:10)
[2019-08-04] MEDS: Menthol/Lanolin/Calamine/Znox 113 GM Tube 1 APPLIC TOPICAL ×2 (08:15→21:08)
[2019-08-04] MEDS: Heparin Injection (Vial) 5,000 UNIT/ML VIAL 5000 UNIT SC ×2 (08:17→21:09)
[2019-08-04 11:26] LABS: Bedside Glucose 143 mg/dL (70-110)
[2019-08-04] MEDS: oxyCODONE 5 MG Tablet PO (13:59)
[2019-08-04] MEDS: guaiFENesin 10 ML UDC (200MG/10ML) PO ×2 (14:04→21:12)
[2019-08-04] MEDS: Glucerna Shake 120 ML LIQUID PO ×3 (14:09→21:08)
--- NOTE | 2019-08-04 15:59 | NURSING ---
pt continues with strong cough. refused to get up to chair. I.S. was completed. fluids encouraged.
[2019-08-04 17:15] LABS: Bedside Glucose 151 mg/dL (70-110)
--- NOTE | 2019-08-04 18:04 | PCM.PN.BLA ---
Progress Note Afebrile since admission. Vital signs are stable and the blood pressure is coming under better control with adjustments in the antihypertensive regimen. BP's are still more increased in the AM...Amlodipine recently added at HS. He was also started on HCTZ 25 mg Daily He is maintaining appropriate oxygen saturation on room air Oral intake is erratic. He eats well if you feed him but, he will not feed himself if the food is left in front of him. LOC seems to wax and wane. The blood sugar record was reviewed and his blood sugars are under good control. No hypoglycemia. He has no complaints today. Appetite and intake remain poor despite repeated reminders from myself and nursing to increase water intake to improve the kidney function. States he does not like the food here. He was encouraged to have his bring food from home and she did but, he did not eat that either. more alert, some confusion. He has a difficult time focusing and it takes a while for him to put his thoughts together and be able to express himself. Lungs - CTA, continues to cough, non-productive HRRR abd - soft, ND, NT, normal BS's in all quadrants No peripheral edema and no calf tenderness Impressions 1. Debility due to Subdural hemorrhage, intracerebral hemorrhage, interventricular hemorrhage and subarachnoid hemorrhage sustained in a fall while on Warfarin. He is confused and likely has TBI in addition to intracerebral hemorrhage. Improving, more alert than at admission 2. cough -nonproductive 3. CRF stage 3-4 - The baseline creat per the nephrology note is 1.3 - 1.7. He was once again encouraged to increase his fluid intake 4. DM II - well controlled 5. CAD with hx of CABG 6. PVD 7. anemia due to blood loss 8. recent UTI more likely than not related to urine retention. Seen by urology and started on Flomax. 9. 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 Suspected depression......will address this with him when he is more alert and better able to participate in the discussion......Hold off on starting another drug until he is more alert Code Visit Inpatient E&M: [id number] Subs Hosp L2
[2019-08-04] MEDS: Atorvastatin Calcium 40 MG Tablet PO (21:10)
[2019-08-04] MEDS: MELATONIN 3 MG TABLET PO (21:10)
[2019-08-04] MEDS: amLODIPine 10 MG Tablet PO (21:11)
[2019-08-05] VITALS (8 sets, daily range): BP systolic 138–187; BP diastolic 52–73; PULSE 59–69; RESP 18; TEMP 36.7–37.1; O2SAT 92–95
--- NOTE | 2019-08-05 00:30 | NURSING ---
Reviewed and agree with LPNs handoff
[2019-08-05] MEDS: Acetaminophen 500 MG Tablet 1000 MG PO ×3 (06:43→22:12)
[2019-08-05] MEDS: hydrALAZINE 50 MG Tablet PO ×3 (06:43→22:10)
[2019-08-05 06:53] LABS: Anion Gap 5 (5-15); BUN 29 mg/dL (7-18); BUN/Creat Ratio 13.4 RATIO (10-20); Calcium,Total 7.7 mg/dL (8.5-10.1); Chloride 107 mmol/L (98-107); Creatinine, Serum 2.16 mg/dL (0.70-1.30); EST Glomerular Filtration Rate 32 mL/min (>60); Est Glom Filt Rate - Afr Amer 39 mL/min (>60); Estimated Creatinine Clearance 30.79 ml/min; Glucose 128 mg/dL (74-106); Magnesium 2.3 mg/dL (1.6-2.6); Potassium 3.9 mmol/L (3.5-5.1); Sodium Level 140 mmol/L (136-145)
[2019-08-05 07:05] LABS: Bedside Glucose 120 mg/dL (70-110)
[2019-08-05] MEDS: NYSTATIN 500,000 UNIT/5 ML UDC 500000 UNIT PO ×4 (08:12→22:12)
[2019-08-05] MEDS: Metoprolol Tartrate 50 MG Tablet PO ×2 (08:12→22:11)
[2019-08-05] MEDS: Senna/Docusate Sodium 1 Tablet 2 TABLET PO ×2 (08:12→22:12)
[2019-08-05] MEDS: levETIRAcetam 500 MG Tablet PO ×2 (08:12→22:11)
[2019-08-05] MEDS: Famotidine 20 MG Tablet PO (08:13)
[2019-08-05] MEDS: Tamsulosin HCl 0.4 MG Capsule PO (08:13)
[2019-08-05] MEDS: Heparin Injection (Vial) 5,000 UNIT/ML VIAL 5000 UNIT SC ×2 (08:13→22:10)
[2019-08-05] MEDS: Losartan Potassium 100 MG Tablet PO (08:13)
[2019-08-05] MEDS: hydroCHLOROthiazide 25 MG Tablet PO (08:16)
[2019-08-05] MEDS: Glucerna Shake 120 ML LIQUID PO (08:16)
[2019-08-05] MEDS: Nystatin Powder 15gm Bottle 1 APPLIC TOPICAL ×2 (08:26→22:11)
[2019-08-05] MEDS: Menthol/Lanolin/Calamine/Znox 113 GM Tube 1 APPLIC TOPICAL ×2 (08:27→22:10)
[2019-08-05] MEDS: Finasteride 5 MG Tablet PO (08:28)
[2019-08-05 17:05] LABS: Bedside Glucose 154 mg/dL (70-110)
[2019-08-05] MEDS: Atorvastatin Calcium 40 MG Tablet PO (22:11)
[2019-08-05] MEDS: MELATONIN 3 MG TABLET PO (22:11)
[2019-08-05] MEDS: amLODIPine 10 MG Tablet PO (22:12)
[2019-08-05] MEDS: guaiFENesin/Codeine 5 ML UDC 10 ML PO (22:19)
[2019-08-06] VITALS (7 sets, daily range): BP systolic 148–155; BP diastolic 68–89; PULSE 67–69; RESP 16; TEMP 36.6; O2SAT 93–95
--- NOTE | 2019-08-06 01:28 | NURSING ---
Patient continuously coughing (dry and nonproductive) 08/04 nights even after Robitussin given. Ashelfah notified earlier this марина (08/05) with request for a different cough med. Robitussin with codeine ordered. Pt now with occasional coughing, resting much better. Resp easy and regular.
--- NOTE | 2019-08-06 01:38 | NURSING ---
Reviewed and agree with LPNs handoff
[2019-08-06] MEDS: hydrALAZINE 50 MG Tablet PO ×2 (06:28→14:02)
[2019-08-06] MEDS: Acetaminophen 500 MG Tablet 1000 MG PO ×3 (06:28→21:16)
[2019-08-06 07:00] LABS: Bedside Glucose 126 mg/dL (70-110)
[2019-08-06] MEDS: Nystatin Powder 15gm Bottle 1 APPLIC TOPICAL ×2 (08:05→21:17)
[2019-08-06] MEDS: Menthol/Lanolin/Calamine/Znox 113 GM Tube 1 APPLIC TOPICAL ×2 (08:05→21:18)
[2019-08-06] MEDS: Tamsulosin HCl 0.4 MG Capsule PO (08:12)
[2019-08-06] MEDS: Losartan Potassium 100 MG Tablet PO (08:12)
[2019-08-06] MEDS: Senna/Docusate Sodium 1 Tablet 2 TABLET PO ×2 (08:12→21:16)
[2019-08-06] MEDS: Finasteride 5 MG Tablet PO (08:12)
[2019-08-06] MEDS: levETIRAcetam 500 MG Tablet PO ×2 (08:12→21:18)
[2019-08-06] MEDS: Famotidine 20 MG Tablet PO (08:12)
[2019-08-06] MEDS: Metoprolol Tartrate 50 MG Tablet PO ×2 (08:13→21:17)
[2019-08-06] MEDS: hydroCHLOROthiazide 25 MG Tablet PO (08:13)
[2019-08-06] MEDS: NYSTATIN 500,000 UNIT/5 ML UDC 500000 UNIT PO ×4 (08:13→21:16)
[2019-08-06] MEDS: Heparin Injection (Vial) 5,000 UNIT/ML VIAL 5000 UNIT SC ×2 (08:13→21:18)
[2019-08-06] MEDS: Glucerna Shake 120 ML LIQUID PO ×4 (08:21→21:18)
[2019-08-06] MEDS: guaiFENesin/Codeine 5 ML UDC 10 ML PO ×2 (09:18→21:16)
--- NOTE | 2019-08-06 13:21 | PCM.PN.BLA ---
Progress Note The staff is concerned that Melvin is depressed. I hesitated to start an antidepressant at admission because I felt the lethargy was due to the acute brain injury from the fall and the subsequent large amount of bleeding into the cerebrum. He has become more alert and is able to hold a conversation with me now. We discussed the sx of depression with Kris including lack of motivation, decreased appetite, memory loss, trouble sleeping, irritability, etc and he agrees he has several sx of depression. He is agreeable to trying an antidepressant. We have chosen Sertraline and the side effects were discussed with him. He had a few coughing episodes while I was talking with him and he was coughing out eggs.....he was eating an egg sandwich prior to me talking with him. I informed the speech therapist. He is fixated on needing to go to the bank on August 13 to withdraw 1200 dollars to pay AEP and a import specialist? He tells me his son will take him and he will come back? I will left a VM for his Elda to call the rehab unit to straighten this out. Alert, having some difficulty with what he wants to say but, with some patience he was able to tell me what he wants to do on August 13. He is doing much better with communicating what he needs. He ate only a few bites.......when the nurses feed him he does much better. Lungs are CTA Heart - RRR with gallop no edema and no calf tenderness BP is coming under better control with the change in the medications. BP currently is 148/69 Impressions 1. Debility due to Subdural hemorrhage, intracerebral hemorrhage, interventricular hemorrhage and subarachnoid hemorrhage sustained in a fall while on Warfarin. He is confused and likely has TBI in addition to intracerebral hemorrhage. He has become more alert and is expressing himself better 2. cough with eating primarily now - Lungs are CTA 3. CRF stage 3-4 4. DM II - blood sugars are well controlled 5. CAD with hx of CABG 6. PVD 7. anemia due to blood loss 8. recent UTI more likely than not related to urine retention. Seen by urology and started on Flomax. 9. 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 depression - started on Sertraline 08/06/19 11. HTN - coming under better control with adjustments in the medications - the goal is < 135/80 DC the Linn for a voiding trial today. Start Sertraline DC the Cozaar and start Lisinopril 20 mg daily - monitor for increase in the cough Get a UA today prior to discontinuation of the Linn Code Visit Inpatient E&M: [id number] [facility] Hosp L3
--- NOTE | 2019-08-06 14:07 | RAD_ITS ---
STUDY: X-RAY CHEST REASON FOR EXAM: Male, 68 years old. Cough TECHNIQUE: Frontal and lateral views of the chest COMPARISON: 07/30/2019 FINDINGS: The lungs are clear. There are no pleural effusions. There is no pneumothorax. The heart is normal in size. The patient is status post sternotomy. The visualized osseous structures are within normal limits. RAD/Chest PA and Lateral IMPRESSION: No acute thoracic pathology. Electronically Signed: Chip Ortiz, at 15:17 EST Tel , Service support ,
[2019-08-06] MEDS: Sertraline 50 MG Tablet PO (15:21)
[2019-08-06 15:29] LABS: Hematocrit 36.1 % (40-54); Hemoglobin 11.7 g/dL (13.0-16.5)
[2019-08-06 15:41] LABS: Mucous, Urine 0 SEEN /hpf (<or=2+); Squamous Epithelial Cells - UA 0 SEEN /hpf (0-5)
[2019-08-06 16:01] LABS: Color, Urine Yellow (Yellow); Glucose, Dipstick 50 mg/dl (Normal); Ketone-Dipstick Negative (Negative); Leukocyte Esterase-Dipstick 500 /ul (Negative); Nitrite-Dipstick Positive (Negative); Occult Blood-Urine 150 /ul (Negative); Protein-Dipstick 500 mg/dl (Negative); Specific Gravity, Urine 1.015 (1.002-1.030); Urine Bilirubin Dipstick Negative (Negative); Urine Clarity Cloudy (Clear); Urine Urobilinogen Normal (Normal)
[2019-08-06 16:49] LABS: Red Blood Cells-Urine 25-50 SEEN /hpf (0-5); White Blood Cells >100 SEEN /hpf (0-5)
[2019-08-06 16:50] LABS: Bacteria 1+ /hpf (None Seen)
--- NOTE | 2019-08-06 16:53 | CHAPLAIN ---
Type of Pastoral Visit _x__ Initial Visit ___ Follow-up Visit ___ On-call Visit ___ General Patient Visit ___ Spiritual Assessment ___ Family Conference ___ Bereavement ___ Rapid Response ___ Code Blue ___ Other (describe below) Pastoral Care Referral From _x__ Patient ___ Family ___ Nurse ___ Physician ___ Retail Customer Service Specialist ___ Paper Bag Machine Operator ___ Other (describe below) Sacrament/Intervention _x__ Active listening ___ Anointing ___ Quaker ___ Bereavement ___ Communion _x__ Linda exploration ___ _x__ Life review _x__ Prayer ___ Reconciliation ___ Sacrament of Sick _x__ Supportive presence ___ Wedding ___ Other (describe below) Pastoral Comments
[2019-08-06 18:01] LABS: Bedside Glucose 128 mg/dL (70-110)
--- NOTE | 2019-08-06 20:00 | NURSING ---
QUARTER SIZED AMT OF THICK YELLOW DRAINAGE NOTED AT MEATUS OF PENIS. PT DOES NOT HAVE URGE TO VOID AT THIS TIME. BLADDER SCANNED FOR 304 ML.
[2019-08-06] MEDS: MELATONIN 3 MG TABLET PO (21:17)
[2019-08-06] MEDS: amLODIPine 10 MG Tablet PO (21:17)
[2019-08-06] MEDS: Atorvastatin Calcium 40 MG Tablet PO (21:18)
[2019-08-06] MEDS: hydrALAZINE 50 MG Tablet 75 MG PO (21:19)
--- NOTE | 2019-08-06 21:33 | NURSING ---
PT DOES NOT HAVE URGE TO VOID. PT UNABLE TO PASS URINE INTO URINAL.
--- NOTE | 2019-08-06 22:30 | NURSING ---
PT WITH > 400 ML URINE IN BLADDER PER BLADDER SCAN. PT UNABLE TO PASS OWN URINE. #16 FR FOY CATHETER INSERTED PER STERILE TECHNIQUE AND WITHOUT DIFFICULTY. PT TOLERATES PROCEDURE WELL.
[2019-08-07] VITALS (8 sets, daily range): BP systolic 149–167; BP diastolic 71–82; PULSE 63–79; RESP 16–20; TEMP 36.3–37.1; O2SAT 92–95
[2019-08-07 06:40] LABS: Bedside Glucose 128 mg/dL (70-110)
[2019-08-07] MEDS: Acetaminophen 500 MG Tablet 1000 MG PO ×3 (07:01→21:59)
[2019-08-07] MEDS: hydrALAZINE 50 MG Tablet 75 MG PO ×3 (07:02→21:58)
[2019-08-07] MEDS: levETIRAcetam 500 MG Tablet PO ×2 (08:24→22:06)
[2019-08-07] MEDS: Famotidine 20 MG Tablet PO (08:24)
[2019-08-07] MEDS: hydroCHLOROthiazide 25 MG Tablet PO (08:24)
[2019-08-07] MEDS: Finasteride 5 MG Tablet PO (08:24)
[2019-08-07] MEDS: Tamsulosin HCl 0.4 MG Capsule PO (08:24)
[2019-08-07] MEDS: Sertraline 50 MG Tablet PO (08:24)
[2019-08-07] MEDS: Senna/Docusate Sodium 1 Tablet 2 TABLET PO (08:24)
[2019-08-07] MEDS: Metoprolol Tartrate 50 MG Tablet PO ×2 (08:25→22:00)
[2019-08-07] MEDS: Nystatin Powder 15gm Bottle 1 APPLIC TOPICAL ×2 (08:31→22:04)
[2019-08-07] MEDS: Menthol/Lanolin/Calamine/Znox 113 GM Tube 1 APPLIC TOPICAL ×2 (08:31→22:03)
[2019-08-07] MEDS: Heparin Injection (Vial) 5,000 UNIT/ML VIAL 5000 UNIT SC ×2 (09:47→22:03)
[2019-08-07] MEDS: NYSTATIN 500,000 UNIT/5 ML UDC 500000 UNIT PO ×4 (09:47→22:00)
[2019-08-07] MEDS: Glucerna Shake 120 ML LIQUID PO ×2 (14:44→22:07)
[2019-08-07 16:56] LABS: Bedside Glucose 180 mg/dL (70-110)
[2019-08-07] MEDS: Ceftriaxone 1 GM/50 ML BAG IV (17:28)
--- NOTE | 2019-08-07 17:38 | PCM.PN.HOSP ---
Patient Problems: Active and Suspected Problems (Last Reviewed 08/02/19 @ 07:57 by Radha Vega DO) Subdural hemorrhage (Acute) 07/22/19 Subarachnoid hemorrhage (Acute) 07/22/19 Intracerebral hemorrhage (Acute) 07/22/19 Closed intraventricular hemorrhage (Acute) 07/22/19 Cephalgia (Acute) due to recent intracerebral hemorrhage Reason for Visit: follow up SAH Subjective: Feels well. States that he is eating well. Vitals/I&O's: Vital Signs Temp Pulse Resp BP Pulse Ox 37.1 C 63 20 H 167/71 H 95 08/07/19 08:13 08/07/19 14:42 08/07/19 08:13 08/07/19 14:42 08/07/19 08:13 Oxygen Flow Rate (L/min) 2 Oxygen Delivery Method Room Air Weight: 83.5 kg Body Mass Index (BMI) 29.0 Finger Stick Blood Glucose 480 Orthostatic Vital Signs Start: 07/30/19 06:49 Freq: Status: Active Protocol: Activity Type Activity Date Activity User E-Sign Co-Sign Detail Recorded Client Recorded Date Recorded By Document 08/05/19 06:00 CDA [id number] 08/05/19 07:01 CDA 08/05/19 06:00 Orthostatic Vitals Standing -Blood Pressure (90/60-120/80) 138/62 H -Extremity Use Right Arm -Pulse Rate (60-100) 68 Sitting -Blood Pressure (90/60-120/80) 161/73 H -Extremity Use Right Arm -Pulse Rate (60-100) 62 Lying -Blood Pressure (90/60-120/80) 179/52 H -Extremity Use Right Arm -Pulse Rate (60-100) 62 Intake and Output for Last 24 Hours 08/05/19 08/06/19 08/07/19 23:59 23:59 23:59 Intake Total 1080 / 1080 360 / 360 600 / 600 Output Total 1250 / 1250 1325 / 1525 1400 / 1400 Balance -170 / -170 -965 / -1165 -800 / -800 General: Alert, Cooperative, No apparent distress HEENT: Atraumatic, Normocephalic Oral: Moist Mucosa, No Gingival or Mucosal Lesions/ Ulcerations Neck: No Nodes, Trachea Midline Lungs: Clear to auscultation, Normal air movement, No rhonchi, No wheeze, No rales Cardiovascular: Regular rate, Regular Rhythm, Normal S1, Normal S2, No murmurs Abdomen: Bowel Sounds Present, Soft, Non Tender, Non-Distended, No Hepato-splenomegaly Extremities: No edema, No Calf Tenderness Skin: No rashes, No breakdown Psych/Mental Status: Normal Affect, Appropriate Microbiology Past 72 Hours 08/06/19 15:30 Urine Catheter - Linn Urine Culture - Preliminary GNR lactose griddle attendant Laboratory Results 08/06/19 17:08: POC Glucose 128 H 08/07/19 06:30: POC Glucose 128 H 08/07/19 16:48: POC Glucose 180 H Current Medications Acetaminophen (Tylenol) 1,000 mg PO Q8 [facility] Last Admin: 08/07/19 14:43 Dose: 1,000 mg Documented by: Amlodipine Besylate (Norvasc) 10 mg PO QHS [facility] Last Admin: 08/06/19 21:17 Dose: 10 mg Documented by: Atorvastatin Calcium (Lipitor) 40 mg PO QHS [facility] Last Admin: 08/06/19 21:18 Dose: 40 mg Documented by: Benzonatate (Tessalon Perle) 100 mg PO TID PRN PRN PRN Reason: COUGH Bisacodyl (Dulcolax) 10 mg RECTAL .PRN X 1 PRN PRN Reason: Constipation Calamine/Phenol (Calmoseptine Ointment) 1 applic TOPICAL BID [facility]; Protocol Last Admin: 08/07/19 08:31 Dose: 1 applicatio Documented by: Cholecalciferol (Vitamin D) 3,000 unit PO DAILY [facility] Last Admin: 08/07/19 08:24 Dose: 3,000 unit Documented by: Clonidine (Catapres) 0.1 mg PO Q8H PRN PRN PRN Reason: SBP>160 OR DBP>99 Last Admin: 08/04/19 06:13 Dose: 0.1 mg Documented by: Famotidine (Pepcid) 20 mg PO DAILY [facility] Last Admin: 08/07/19 08:24 Dose: 20 mg Documented by: Finasteride (Proscar) 5 mg PO DAILY [facility] Last Admin: 08/07/19 08:24 Dose: 5 mg Documented by: Guaifenesin/Codeine Phosphate (Robitussin Ac) 10 ml PO Q6H PRN PRN PRN Reason: COUGH/CONGESTION Last Admin: 08/06/19 21:16 Dose: 10 ml Documented by: Heparin Sodium (Porcine) (Heparin Na) 5,000 unit SC Q12 [facility] Last Admin: 08/07/19 09:47 Dose: 5,000 unit Documented by: Hydralazine HCl (Apresoline) 75 mg PO TID [facility] Last Admin: 08/07/19 14:42 Dose: 75 mg Documented by: Hydrochlorothiazide (Hctz) 25 mg PO DAILY [facility] Last Admin: 08/07/19 08:24 Dose: 25 mg Documented by: Ceftriaxone Sodium (Rocephin) 1 gm in 50 mls @ 100 mls/hr IV Q24 [facility] Levetiracetam (Keppra Tablet) 500 mg PO BID [facility] Last Admin: 08/07/19 08:24 Dose: 500 mg Documented by: Magnesium Hydroxide (Milk Of Magnesia) 30 ml PO .PRN X 1 PRN PRN Reason: Constipation Melatonin (Melatonin) 3 mg PO QHS [facility] Last Admin: 08/06/19 21:17 Dose: 3 mg Documented by: Metoprolol Tartrate (Lopressor (Beta Laz)) 50 mg PO BID [facility] Last Admin: 08/07/19 08:25 Dose: 50 mg Documented by: Nutritional Formula (Lactose Free) (Glucerna Shake) 120 ml PO 4X/DAY [facility] Last Admin: 08/07/19 17:35 Dose: Not Given Documented by: Nystatin (Nystatin) 500,000 unit PO 4X/DAY [facility] Last Admin: 08/07/19 17:34 Dose: 500,000 unit Documented by: Nystatin (Mycostatin Powder) 1 applic TOPICAL BID [facility]; Protocol Last Admin: 08/07/19 08:31 Dose: 1 applicatio Documented by: Ondansetron HCl (Zofran Odt) 4 mg PO Q8H PRN PRN PRN Reason: NAUSEA Last Admin: 08/02/19 17:57 Dose: 4 mg Documented by: Oxycodone HCl (Oxyir) 5 mg PO Q6H PRN PRN PRN Reason: Pain Last Admin: 08/04/19 13:59 Dose: 5 mg Documented by: Senna/Docusate Sodium (Senokot-S, Crissy-Colace) 2 tablet PO BID [facility] Last Admin: 08/07/19 08:24 Dose: 2 tablet Documented by: Sertraline HCl (Zoloft) 50 mg PO DAILY [facility] Last Admin: 08/07/19 08:24 Dose: 50 mg Documented by: Tamsulosin HCl (Flomax) 0.4 mg PO DAILY [facility] Last Admin: 08/07/19 08:24 Dose: 0.4 mg Documented by: STROKE Vital Signs/Narrative: Vital Signs Pulse BP 08/07/19 14:42 63 167/71 H Medical Necessity - Tobacco Use Smoking Status: Former smoker Tobacco Use: Non-smoker Assessment/Plan All Active Problems (Last Reviewed 08/02/19 @ 07:57 by Radha Vega DO) Subdural hemorrhage (Acute) Subarachnoid hemorrhage (Acute) Intracerebral hemorrhage (Acute) Closed intraventricular hemorrhage (Acute) Cephalgia (Acute) KIMI (acute kidney injury) (Resolved) Benign soft tissue neoplasm (Resolved) Community acquired pneumonia (Resolved) Hyperglycemic crisis in diabetes mellitus (Resolved) Hypertensive crisis (Resolved) Vertigo (Resolved) Assessment: 1. SAH 2. UTI: gram negative charles. 3. DM2-controlled 4. HTN--persistently elevated Plan: 1. start CTX for UTI, follow up culture and adjust abx accordingly 2. continue amlodipine 10, HTCTZ 25, hydralazine 75 TID. No NADINE-/ARB given CKD. Monitor on current regimen as hydralazine just started 08/06 3. VTE proph w heparin Code Visit Inpatient E&M: [id number] Subs Hosp L2
[2019-08-07] MEDS: guaiFENesin/Codeine 5 ML UDC 10 ML PO (21:58)
[2019-08-07] MEDS: Atorvastatin Calcium 40 MG Tablet PO (21:58)
[2019-08-07] MEDS: MELATONIN 3 MG TABLET PO (22:00)
[2019-08-07] MEDS: amLODIPine 10 MG Tablet PO (22:00)
[2019-08-08] VITALS (8 sets, daily range): BP systolic 134–154; BP diastolic 67–90; PULSE 69–80; RESP 16–18; TEMP 36.6; O2SAT 95–97
[2019-08-08] MEDS: Acetaminophen 500 MG Tablet 1000 MG PO ×3 (06:22→21:24)
[2019-08-08] MEDS: hydrALAZINE 50 MG Tablet 75 MG PO ×3 (06:22→21:21)
[2019-08-08 06:25] LABS: Bedside Glucose 139 mg/dL (70-110)
[2019-08-08] MEDS: Glucerna Shake 120 ML LIQUID PO ×4 (08:49→21:26)
[2019-08-08] MEDS: Famotidine 20 MG Tablet PO (08:50)
[2019-08-08] MEDS: Metoprolol Tartrate 50 MG Tablet PO ×2 (08:50→21:26)
[2019-08-08] MEDS: levETIRAcetam 500 MG Tablet PO ×2 (08:50→21:27)
[2019-08-08] MEDS: hydroCHLOROthiazide 25 MG Tablet PO (08:50)
[2019-08-08] MEDS: Finasteride 5 MG Tablet PO (08:53)
[2019-08-08] MEDS: Tamsulosin HCl 0.4 MG Capsule PO (08:53)
[2019-08-08] MEDS: Benzonatate 100 MG Capsule PO ×2 (08:53→21:24)
[2019-08-08] MEDS: Menthol/Lanolin/Calamine/Znox 113 GM Tube 1 APPLIC TOPICAL ×2 (08:55→21:28)
[2019-08-08] MEDS: Nystatin Powder 15gm Bottle 1 APPLIC TOPICAL ×2 (08:55→21:28)
[2019-08-08] MEDS: Heparin Injection (Vial) 5,000 UNIT/ML VIAL 5000 UNIT SC ×2 (08:57→21:26)
[2019-08-08] MEDS: NYSTATIN 500,000 UNIT/5 ML UDC 500000 UNIT PO ×4 (10:16→21:25)
[2019-08-08] MEDS: Sertraline 50 MG Tablet PO (10:16)
[2019-08-08] MEDS: Cephalexin 500 MG Capsule PO ×2 (10:16→21:26)
[2019-08-08 16:51] LABS: Bedside Glucose 190 mg/dL (70-110)
[2019-08-08] MEDS: guaiFENesin/Codeine 5 ML UDC 10 ML PO (21:24)
[2019-08-08] MEDS: MELATONIN 3 MG TABLET PO (21:25)
[2019-08-08] MEDS: Senna/Docusate Sodium 1 Tablet 2 TABLET PO (21:25)
[2019-08-08] MEDS: amLODIPine 10 MG Tablet PO (21:25)
[2019-08-08] MEDS: Atorvastatin Calcium 40 MG Tablet PO (21:26)
[2019-08-08] MEDS: 0.9% NaCl Peripheral Flush Adult/Peds IV (21:38)
[2019-08-09] VITALS (8 sets, daily range): BP systolic 153–163; BP diastolic 66–79; PULSE 71–82; RESP 16–18; TEMP 36.6–36.7; O2SAT 93–95
[2019-08-09] MEDS: Acetaminophen 500 MG Tablet 1000 MG PO ×3 (05:17→21:39)
[2019-08-09] MEDS: hydrALAZINE 50 MG Tablet 75 MG PO ×3 (05:18→21:43)
[2019-08-09 06:31] LABS: Anion Gap 4 (5-15); BUN 25 mg/dL (7-18); BUN/Creat Ratio 11.4 RATIO (10-20); Chloride 106 mmol/L (98-107); EST Glomerular Filtration Rate 32 mL/min (>60); Est Glom Filt Rate - Afr Amer 38 mL/min (>60); Estimated Creatinine Clearance 30.23 ml/min; Glucose 150 mg/dL (74-106); Magnesium 2.2 mg/dL (1.6-2.6); Potassium 3.6 mmol/L (3.5-5.1); Sodium Level 140 mmol/L (136-145)
[2019-08-09] MEDS: Nystatin Powder 15gm Bottle 1 APPLIC TOPICAL ×2 (07:48→21:40)
[2019-08-09] MEDS: Menthol/Lanolin/Calamine/Znox 113 GM Tube 1 APPLIC TOPICAL ×2 (07:49→21:44)
[2019-08-09] MEDS: Sertraline 50 MG Tablet PO (07:51)
[2019-08-09] MEDS: Glucerna Shake 120 ML LIQUID PO ×3 (07:51→21:43)
[2019-08-09] MEDS: Cephalexin 500 MG Capsule PO ×2 (07:52→21:42)
[2019-08-09] MEDS: hydroCHLOROthiazide 25 MG Tablet PO (07:52)
[2019-08-09] MEDS: Senna/Docusate Sodium 1 Tablet 2 TABLET PO ×2 (07:52→21:39)
[2019-08-09] MEDS: Metoprolol Tartrate 50 MG Tablet PO ×2 (07:52→21:42)
[2019-08-09] MEDS: levETIRAcetam 500 MG Tablet PO ×2 (07:52→21:42)
[2019-08-09] MEDS: Tamsulosin HCl 0.4 MG Capsule PO ×2 (07:52→21:43)
[2019-08-09] MEDS: Famotidine 20 MG Tablet PO (07:52)
[2019-08-09] MEDS: NYSTATIN 500,000 UNIT/5 ML UDC 500000 UNIT PO ×4 (07:52→21:40)
[2019-08-09] MEDS: Finasteride 5 MG Tablet PO (07:52)
[2019-08-09 08:26] LABS: Bedside Glucose 164 mg/dL (70-110)
[2019-08-09] MEDS: Heparin Injection (Vial) 5,000 UNIT/ML VIAL 5000 UNIT SC ×2 (09:22→21:45)
--- NOTE | 2019-08-09 11:36 | PN_ITS ---
Patient Problems: Active and Suspected Problems (Last Reviewed 08/02/19 @ 07:57 by Radha Vega DO) Subdural hemorrhage (Acute) 07/22/19 Subarachnoid hemorrhage (Acute) 07/22/19 Intracerebral hemorrhage (Acute) 07/22/19 Closed intraventricular hemorrhage (Acute) 07/22/19 Cephalgia (Acute) due to recent intracerebral hemorrhage Subjective: Day #3 antibiotics Afebrile Vital signs are stable. The blood pressure has improved and over the past 24 hours has ranged from 134/67-154/90. Heart rate is consistently within normal limits He is maintaining an appropriate oxygen saturation on room air ranging from 92 to 97%. Oral intake for 08/08/2019 was 1060. The urine in the Linn bag is clear and pale yellow today. The Linn catheter was discontinued on 08/06/2019 and a UA was sent and showed positive nitrites 25-50 RBCs and greater than 100 WBCs. There was +1 bacteria. Urine culture grew greater than 100,000 colonies of a pansensitive E. coli. He is currently on Keflex. I reviewed all the records from the previous hospital and there is no urine culture although it is documented that he had a UTI and was treated. He was also seen by Nephrology. The baseline creat is 1.3 to 1.7. His creat at admission to the [facility] was 2.11. All lab from today was personally reviewed. Sodium, potassium, chloride and carbon dioxide are all within normal limits. The BUN is 25 and the creatinine is 2.2. Fasting blood sugar is 150. Calcium is 8.0 and his magnesium is normal at 2.2. Blood sugar record was reviewed and the patient's blood sugars are under adequate control. No hypoglycemia and no blood sugars greater than 200. He has not been requiring any tx for DM. He was seen on TEAM rounds today. He is doing better with his fluid intake but, is not eating enough. Weight is decreasing. The bridge attacher changed the diet to Regular rather than calorie or carb controlled....BS's have increased but, still all less than 200 - Physical Exam Vitals/I&O's: Vital Signs Temp Pulse Resp BP Pulse Ox 98.0 F 71 16 154/66 H 93 08/09/19 07:16 08/09/19 07:52 08/09/19 07:16 08/09/19 07:52 08/09/19 07:16 Oxygen Flow Rate (L/min) 2 Oxygen Delivery Method Room Air Weight: 184 lb 1.376 oz Body Mass Index (BMI) 29.0 Finger Stick Blood Glucose 480 Orthostatic Vital Signs Start: 07/30/19 06:49 Freq: Status: Active Protocol: Activity Type Activity Date Activity User E-Sign Co-Sign Detail Recorded Client Recorded Date Recorded By Document 08/05/19 06:00 CDA [id number] 08/05/19 07:01 CDA 08/05/19 06:00 Orthostatic Vitals Standing -Blood Pressure (90/60-120/80 mm Hg) 138/62 H -Extremity Use Right Arm -Pulse Rate (60-100 beats/min) 68 Sitting -Blood Pressure (90/60-120/80 mm Hg) 161/73 H -Extremity Use Right Arm -Pulse Rate (60-100 beats/min) 62 Lying -Blood Pressure (90/60-120/80 mm Hg) 179/52 H -Extremity Use Right Arm -Pulse Rate (60-100 beats/min) 62 Intake and Output for Last 24 Hours 08/07/19 08/08/19 08/09/19 23:59 23:59 23:59 Intake Total 1470 / 1470 1060 / 1180 120 / 120 Output Total 2049 / 2049 1450 / 1800 1425 / 1425 Balance -580 / -580 -390 / -620 -1305 / -1305 General: Alert, - - s his glasses on today and he is very alert and appropriate. He is better able to focus and express himself today.......thought process is more fluent and his speech is not as halting HEENT: PERRLA, EOMI, Normocephalic Oral: Moist Mucosa Neck: Supple, No JVD Lungs: Clear to auscultation Cardiovascular: Regular rate, Regular Rhythm, Normal S1, Normal S2, Murmur - Unchanged from admission, No rub noted, No Gallop Abdomen: Bowel Sounds Present, Soft, Non Tender, Non-Distended Extremities: No clubbing, No cyanosis, No Calf Tenderness, Edema - the edema of the hands and the feet has improved since admission Skin: No rashes, No breakdown Neurological: Cranial nerves II-XII grossly intact, Neuro grossly intact Psych/Mental Status: Appropriate - His affect is less flat today and he is participating in the conversation and rounds and is not nodding off. Microbiology Past 72 Hours 08/06/19 15:30 Urine Catheter - Linn Urine Culture - Final Escherichia coli Laboratory Results 08/08/19 16:44: POC Glucose 190 H 08/09/19 06:04: Sodium 140, Potassium 3.6, Chloride 106, Carbon Dioxide 30.0, Anion Gap 4 L, BUN 25 H, Creatinine 2.20 H, Estim Creat Clear Calc 30.23, Est GFR (MDRD) Af Amer 38 L, Est GFR (MDRD) Non-Af 32 L, BUN/Creatinine Ratio 11.4, Glucose 150 H, Calcium 8.0 L, Magnesium 2.2 08/09/19 06:31: POC Glucose 164 H Current Medications Acetaminophen (Tylenol) 1,000 mg PO Q8 [facility] Last Admin: 08/09/19 05:17 Dose: 1,000 mg Documented by: Amlodipine Besylate (Norvasc) 10 mg PO QHS [facility] Last Admin: 08/08/19 21:25 Dose: 10 mg Documented by: Atorvastatin Calcium (Lipitor) 40 mg PO QHS [facility] Last Admin: 08/08/19 21:26 Dose: 40 mg Documented by: Benzonatate (Tessalon Perle) 100 mg PO TID PRN PRN PRN Reason: COUGH Last Admin: 08/08/19 21:24 Dose: 100 mg Documented by: Bisacodyl (Dulcolax) 10 mg RECTAL .PRN X 1 PRN PRN Reason: Constipation Calamine/Phenol (Calmoseptine Ointment) 1 applic TOPICAL BID [facility]; Protocol Last Admin: 08/09/19 07:49 Dose: 1 applicatio Documented by: Cephalexin (Keflex) 500 mg PO Q12 [facility] Stop: 08/13/19 22:01 Last Admin: 08/09/19 07:52 Dose: 500 mg Documented by: Cholecalciferol (Vitamin D) 3,000 unit PO DAILY [facility] Last Admin: 08/09/19 07:51 Dose: 3,000 unit Documented by: Clonidine (Catapres) 0.1 mg PO Q8H PRN PRN PRN Reason: SBP>160 OR DBP>99 Last Admin: 08/04/19 06:13 Dose: 0.1 mg Documented by: Famotidine (Pepcid) 20 mg PO DAILY [facility] Last Admin: 08/09/19 07:52 Dose: 20 mg Documented by: Finasteride (Proscar) 5 mg PO DAILY [facility] Last Admin: 08/09/19 07:52 Dose: 5 mg Documented by: Guaifenesin/Codeine Phosphate (Robitussin Ac) 10 ml PO Q6H PRN PRN PRN Reason: COUGH/CONGESTION Last Admin: 08/08/19 21:24 Dose: 10 ml Documented by: Heparin Sodium (Porcine) (Heparin Na) 5,000 unit SC Q12 [facility] Last Admin: 08/09/19 09:22 Dose: 5,000 unit Documented by: Hydralazine HCl (Apresoline) 75 mg PO TID [facility] Last Admin: 08/09/19 05:18 Dose: 75 mg Documented by: Hydrochlorothiazide (Hctz) 25 mg PO DAILY [facility] Last Admin: 08/09/19 07:52 Dose: 25 mg Documented by: Levetiracetam (Keppra Tablet) 500 mg PO BID [facility] Last Admin: 08/09/19 07:52 Dose: 500 mg Documented by: Magnesium Hydroxide (Milk Of Magnesia) 30 ml PO .PRN X 1 PRN PRN Reason: Constipation Melatonin (Melatonin) 3 mg PO QHS [facility] Last Admin: 08/08/19 21:25 Dose: 3 mg Documented by: Metoprolol Tartrate (Lopressor (Beta Laz)) 50 mg PO BID [facility] Last Admin: 08/09/19 07:52 Dose: 50 mg Documented by: Nutritional Formula (Lactose Free) (Glucerna Shake) 120 ml PO 4X/DAY [facility] Last Admin: 08/09/19 07:51 Dose: 120 ml Documented by: Nystatin (Nystatin) 500,000 unit PO 4X/DAY [facility] Last Admin: 08/09/19 07:52 Dose: 500,000 unit Documented by: Nystatin (Mycostatin Powder) 1 applic TOPICAL BID [facility]; Protocol Last Admin: 08/09/19 07:48 Dose: 1 applicatio Documented by: Ondansetron HCl (Zofran Odt) 4 mg PO Q8H PRN PRN PRN Reason: NAUSEA Last Admin: 08/02/19 17:57 Dose: 4 mg Documented by: Oxycodone HCl (Oxyir) 5 mg PO Q6H PRN PRN PRN Reason: Pain Last Admin: 08/04/19 13:59 Dose: 5 mg Documented by: Senna/Docusate Sodium (Senokot-S, Crissy-Colace) 2 tablet PO BID [facility] Last Admin: 08/09/19 07:52 Dose: 2 tablet Documented by: Sertraline HCl (Zoloft) 50 mg PO DAILY [facility] Last Admin: 08/09/19 07:51 Dose: 50 mg Documented by: Sodium Chloride () 10 - 40 ml IV UD PRN PRN Reason: SALINE FLUSH Last Admin: 08/08/19 21:38 Dose: 10 ml Documented by: Tamsulosin HCl (Flomax) 0.4 mg PO DAILY [facility] Last Admin: 08/09/19 07:52 Dose: 0.4 mg Documented by: Medical Necessity - Tobacco Use Smoking Status: Former smoker Tobacco Use: Non-smoker Assessment/Plan All Active Problems (Last Reviewed 08/02/19 @ 07:57 by Radha Vega DO) Subdural hemorrhage (Acute) Subarachnoid hemorrhage (Acute) Intracerebral hemorrhage (Acute) Closed intraventricular hemorrhage (Acute) Cephalgia (Acute) KIMI (acute kidney injury) (Resolved) Benign soft tissue neoplasm (Resolved) Community acquired pneumonia (Resolved) Hyperglycemic crisis in diabetes mellitus (Resolved) Hypertensive crisis (Resolved) Vertigo (Resolved) Impressions 1. Debility due to Subdural hemorrhage, intracerebral hemorrhage, interventricular hemorrhage and subarachnoid hemorrhage sustained in a fall while on Warfarin. Confusion and LOC are improving. Better able to participate in conversations about his care and progress. 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 He was able able to tell me what he had to take care of and on this past Friday he had halting speech and was taking significantly longer to process what he wanted to say. 2. cough - much better since the Cozaar was discontinued. 3. 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 He will need to follow up with a lab support technician post DC. Creat is creeping up and he was reminded once again to keep his fluid intake up. the HCTZ has helped with the BP control however, his urine OP is exceeding his oral intake....edema is better 4. DM II - all BS's are less than 200 on no medication however the bridge attacher has changed the diet to regular........if the BS's starting creeping up....he was 190 yesterday before supper will need to add Amaryl 1 mg daily. Continue to monitor the blood sugars closely. 5. CAD with hx of CABG 6. PVD 7. anemia due to blood loss - stable 8. recent UTI more likely than not related to urine retention. Seen by urology and started on Flomax. He had a voiding trial over the weekend and he was still retaining > 400 cc's of urine......on Proscar and Flomax 0.4 mg once daily. will increase the FLomax to BID and repeat a voiding trial ......if he is still retaining > 400 cc's a day will consult Urology. He had a recent US of the kidneys at the last hospital so will request that they send us the report and will also request the urine culture results. 9. 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 Depression - started on Sertraline last Friday with his permission. No adverse SE's reported Code Visit Inpatient E&M: 62064 Subs Hosp L2
--- NOTE | 2019-08-09 16:39 | CASEMGMT ---
Team meeting held today with pt present. Pt is participating in therapy and progressing with PT/OT/ST. Pt expressing desire to return home as soon as possible but is aware that he needs continued therapy prior to return home for safety and ability to care for himself. Next insurance update is dues 08/13/18 and pt aware continued stay is not guaranteed. Will continue with treatment plan and reteam next week. GOLDIE Sandhu
[2019-08-09 17:25] LABS: Bedside Glucose 222 mg/dL (70-110)
[2019-08-09] MEDS: Benzonatate 100 MG Capsule PO (21:28)
[2019-08-09] MEDS: guaiFENesin/Codeine 5 ML UDC 10 ML PO (21:28)
[2019-08-09] MEDS: MELATONIN 3 MG TABLET PO (21:41)
[2019-08-09] MEDS: Atorvastatin Calcium 40 MG Tablet PO (21:42)
[2019-08-09] MEDS: amLODIPine 10 MG Tablet PO (21:46)
[2019-08-10] VITALS (9 sets, daily range): BP systolic 125–155; BP diastolic 63–82; PULSE 61–94; RESP 16–18; TEMP 36.3–36.6; O2SAT 92–93
[2019-08-10] MEDS: 0.9% NaCl Peripheral Flush Adult/Peds IV (02:06)
[2019-08-10] MEDS: Acetaminophen 500 MG Tablet 1000 MG PO ×3 (06:02→21:50)
[2019-08-10] MEDS: hydrALAZINE 50 MG Tablet 75 MG PO ×3 (06:02→21:50)
[2019-08-10 07:01] LABS: Bedside Glucose 150 mg/dL (70-110)
--- NOTE | 2019-08-10 08:00 | REHABEVAL_ITS ---
Admission Information Primary Diagnosis:: debility due to SAH and TBI related to a fall Status Changes from Prescreening?: No changes Identified Actual Problem List:: Bleeding, UTI, Aspiration, Falls, Pain, ALteration in Cmfrt, Cognitve Impr/Memory Loss, Depression, Alteration in Sleep, Alteration in Nutrition, Mobility Impaired, Self Care Deficit, Ineffective Communication, BP, Hypertension Potential Problem List:: DVT, Bleeding, Infection, UTI, Aspiration, Falls, Skin Integrity, Depression Risk of Complications DVT: LMWH, MANUEL Hose Bleeding: Monitor Lab Values, Nursing to Teach Precautions for anti-coagulation therapy., Wound, if applicable, to be assessed every shift. Infection: Clinical Staff to Monitor for S/S of infection:, S/S of infection include fever, redness, warmth, etc. Urinary Tract Infection: Monitor for frequency, burning, discomfort, or incontinence., Nursing will obtain urine sample for urinalysis and C&S when ordered. Aspiration: Clinical staff will monitor for coughing, drooling, congestion., Speech will evaluate swallowing and dsyphasia., Nursing will monitor patient swallowing during meals. Falls: Patient will be evaluated for Fall Precautions, Patient will be placed on Fall Precautions as indicated per protocol. Skin Breakdown: Nursing will assess skin daily using assessment tool., Nursing will place on Skin Breakdown Precautions as indicated. Pain: Clinical staff will assess patient's pain level per protocol., Medications will be given, if needed, and the pain level reassessed., Other methods: Massage, distraction, decrease stimulus, etc. used PRN. Plan of Care Patient requires physician specializing in physical medicine and rehab oversight to provide close medical supervision of rehab issues including: Pain Management, Sleep Problems, Bowel and Bladder, Medical and co-morbidity Management, DVT prophylaxis, Rehabilitation Leadership, Coordination of treatment team Patient needs Physical Therapy: For a minimum of 1 hour, At least 5 out of 7 days Patient needs Physical Therapy to improve:: Mobility, Mobility, Mobility, Strengthening, Transfers, Stretching, ROM, Endurance, Stairs, Gait, Balance Patient needs Occupational Therapy: For a minimum of 1 hour, At least 5 out of 7 days Patient needs Occupational Therapy to improve ADL's incl.: Eating, Grooming, Ba thing, Dressing, Toileting, Toilet transfers, Community Reintegration, Higher functioning activities, Household tasks, Adaptive Equipment, Splinting, Other activities as determined Patient requires speech therapy: For a minimum of 1 hour, At least 5 out of 7 days Patient requires speech therapy for: Swallowing, Cognition, Language Skills, Compensatory Strategies Patient requires 24/ Rehabilitation Nursing for: Pain Issues, Identifying and preventing risk factors, Monitoring and reporting current medical conditions, Assisting with ambulation, transfer, and all ADL's, Teaching patients about disease process and medications, Family teaching, Providing safe environment, Bowel and Bladder Issues, Skin integrity, Medication Management Patient needs Commercial Floor Covering Installer/ Case Management for: Discharge Planning, Arranging Home Equipment or Services, Family Interventions Patient needs Dietary and Nutrition Services for: Adequate Nutrition, Nutritional Supplements, Nutritional Education Goals Patient will remain: free from falls, or injury at time of discharge. Patient will perform bed mobility at: MOD I level of assist. Patient will complete transfers from bed to chair at: MOD I level of assist. Patient will ambulate: 100 feet, with MOD I assist, with LRD Patient will complete upper body dressing at: MOD I level of assist. Patient will complete lower body dressing at: MOD I level of assist. Patient will complete toileting at: MOD I level of assist. Patient will perform bathing at: MOD I level of assist. Patient will complete grooming at: MOD I level of assist. Patient will complete home management skills at: MOD I level of assist. Patient will achieve: 12 stairs, at MOD I assist Patient will have pain level of: of 3 or less Patient's skin will: remain intact, free from infection. Patient will receive: adequate nutrition. Discharge Planning Pt Prognosis for Sig. Practical Improv. w/in Reasonable Time: Good Estimated Length of stay (days): 14 Anticipated D/C Destination: Home Was Preadmission Assessment Accurate?: Yes
--- NOTE | 2019-08-10 08:04 | PN_ITS ---
Patient Problems: Active and Suspected Problems (Last Reviewed 08/02/19 @ 07:57 by Radha Vega DO) Subdural hemorrhage (Acute) 07/22/19 Subarachnoid hemorrhage (Acute) 07/22/19 Intracerebral hemorrhage (Acute) 07/22/19 Closed intraventricular hemorrhage (Acute) 07/22/19 Cephalgia (Acute) due to recent intracerebral hemorrhage Subjective: UA at [facility] prior to admission to the [facility] showed >1000 protein, ketones and was negative for leukocyte esterase and bacteria. Remains afebrile Systolic blood pressure is mildly elevated and has ranged from 153 to 163in the past 24H. BS prior to supper yesterday was 222. FBS is 150 this morning. Recorded oral intake for 08/09 is only 480 and overnight he had 320. Last BM was 08/07 PT/OT and ST notes reviewed No complaints. Denies lightheadedness. No CASTLE today - Physical Exam Vitals/I&O's: Vital Signs Temp Pulse Resp BP Pulse Ox 98 F 69 16 155/69 H 92 08/10/19 07:51 08/10/19 07:51 08/10/19 07:51 08/10/19 07:51 08/10/19 07:51 Oxygen Flow Rate (L/min) 2 Oxygen Delivery Method Room Air Weight: 184 lb 1.376 oz Body Mass Index (BMI) 29.0 Finger Stick Blood Glucose 480 Orthostatic Vital Signs Start: 07/30/19 06:49 Freq: Status: Active Protocol: Activity Type Activity Date Activity User E-Sign Co-Sign Detail Recorded Client Recorded Date Recorded By Document 08/05/19 06:00 [facility] [id number] 08/05/19 07:01 CDA 08/05/19 06:00 Orthostatic Vitals Standing -Blood Pressure (90/60-120/80 mm Hg) 138/62 H -Extremity Use Right Arm -Pulse Rate (60-100 beats/min) 68 Sitting -Blood Pressure (90/60-120/80 mm Hg) 161/73 H -Extremity Use Right Arm -Pulse Rate (60-100 beats/min) 62 Lying -Blood Pressure (90/60-120/80 mm Hg) 179/52 H -Extremity Use Right Arm -Pulse Rate (60-100 beats/min) 62 Intake and Output for Last 24 Hours 08/08/19 08/09/19 08/10/19 23:59 23:59 23:59 Intake Total 1060 / 1180 480 / 480 320 / 320 Output Total 1450 / 1800 2125 / 2125 600 / 600 Balance -390 / -620 -1645 / -1645 -280 / -280 General: Alert, Oriented x3, Cooperative, No apparent distress HEENT: PERRLA, EOMI Oral: Dry Mucosa Lungs: Clear to auscultation Cardiovascular: Regular rate, Regular Rhythm, Normal S1, Normal S2, No Gallop Abdomen: Bowel Sounds Present, Soft, Non Tender, Non-Distended Extremities: No cyanosis, No edema Skin: No rashes, No breakdown Neurological: Cranial nerves II-XII grossly intact, Neuro grossly intact, - - please see the Therapy notes for progress report Microbiology Past 72 Hours 08/06/19 15:30 Urine Catheter - Linn Urine Culture - Final Escherichia coli Laboratory Results 08/09/19 06:31: POC Glucose 164 H 08/09/19 17:15: POC Glucose 222 H 08/10/19 06:02: POC Glucose 150 H Current Medications Acetaminophen (Tylenol) 1,000 mg PO Q8 [facility] Last Admin: 08/10/19 06:02 Dose: 1,000 mg Documented by: Amlodipine Besylate (Norvasc) 10 mg PO QHS [facility] Last Admin: 08/09/19 21:46 Dose: 10 mg Documented by: Atorvastatin Calcium (Lipitor) 40 mg PO QHS [facility] Last Admin: 08/09/19 21:42 Dose: 40 mg Documented by: Benzonatate (Tessalon Perle) 100 mg PO TID PRN PRN PRN Reason: COUGH Last Admin: 08/09/19 21:28 Dose: 100 mg Documented by: Bisacodyl (Dulcolax) 10 mg RECTAL .PRN X 1 PRN PRN Reason: Constipation Calamine/Phenol (Calmoseptine Ointment) 1 applic TOPICAL BID [facility]; Protocol Last Admin: 08/09/19 21:44 Dose: 1 applicatio Documented by: Cephalexin (Keflex) 500 mg PO Q12 [facility] Stop: 08/17/19 22:01 Last Admin: 08/09/19 21:42 Dose: 500 mg Documented by: Cholecalciferol (Vitamin D) 3,000 unit PO DAILY [facility] Last Admin: 08/09/19 07:51 Dose: 3,000 unit Documented by: Clonidine (Catapres) 0.1 mg PO Q8H PRN PRN PRN Reason: SBP>160 OR DBP>99 Last Admin: 08/04/19 06:13 Dose: 0.1 mg Documented by: Famotidine (Pepcid) 20 mg PO DAILY [facility] Last Admin: 08/09/19 07:52 Dose: 20 mg Documented by: Finasteride (Proscar) 5 mg PO DAILY [facility] Last Admin: 08/09/19 07:52 Dose: 5 mg Documented by: Guaifenesin/Codeine Phosphate (Robitussin Ac) 10 ml PO Q6H PRN PRN PRN Reason: COUGH/CONGESTION Last Admin: 08/09/19 21:28 Dose: 10 ml Documented by: Heparin Sodium (Porcine) (Heparin Na) 5,000 unit SC Q12 [facility] Last Admin: 08/09/19 21:45 Dose: 5,000 unit Documented by: Hydralazine HCl (Apresoline) 75 mg PO TID [facility] Last Admin: 08/10/19 06:02 Dose: 75 mg Documented by: Levetiracetam (Keppra Tablet) 500 mg PO BID [facility] Last Admin: 08/09/19 21:42 Dose: 500 mg Documented by: Magnesium Hydroxide (Milk Of Magnesia) 30 ml PO .PRN X 1 PRN PRN Reason: Constipation Melatonin (Melatonin) 3 mg PO QHS [facility] Last Admin: 08/09/19 21:41 Dose: 3 mg Documented by: Metoprolol Tartrate (Lopressor (Beta Laz)) 50 mg PO BID [facility] Last Admin: 08/09/19 21:42 Dose: 50 mg Documented by: Nutritional Formula (Lactose Free) (Glucerna Shake) 120 ml PO 4X/DAY [facility] Last Admin: 08/09/19 21:43 Dose: 120 ml Documented by: Nystatin (Nystatin) 500,000 unit PO 4X/DAY [facility] Last Admin: 08/09/19 21:40 Dose: 500,000 unit Documented by: Nystatin (Mycostatin Powder) 1 applic TOPICAL BID [facility]; Protocol Last Admin: 08/09/19 21:40 Dose: 1 applicatio Documented by: Ondansetron HCl (Zofran Odt) 4 mg PO Q8H PRN PRN PRN Reason: NAUSEA Last Admin: 08/02/19 17:57 Dose: 4 mg Documented by: Oxycodone HCl (Oxyir) 5 mg PO Q6H PRN PRN PRN Reason: Pain Last Admin: 08/04/19 13:59 Dose: 5 mg Documented by: Senna/Docusate Sodium (Senokot-S, Crissy-Colace) 2 tablet PO BID [facility] Last Admin: 08/09/19 21:39 Dose: 2 tablet Documented by: Sertraline HCl (Zoloft) 50 mg PO DAILY [facility] Last Admin: 08/09/19 07:51 Dose: 50 mg Documented by: Sodium Chloride () 10 - 40 ml IV UD PRN PRN Reason: SALINE FLUSH Last Admin: 08/10/19 02:06 Dose: 10 ml Documented by: Tamsulosin HCl (Flomax) 0.4 mg PO BID [facility] Last Admin: 08/09/19 21:43 Dose: 0.4 mg Documented by: Medical Necessity - Tobacco Use Smoking Status: Former smoker Tobacco Use: Non-smoker Assessment/Plan All Active Problems (Last Reviewed 08/02/19 @ 07:57 by Radha Vega DO) Subdural hemorrhage (Acute) Subarachnoid hemorrhage (Acute) Intracerebral hemorrhage (Acute) Closed intraventricular hemorrhage (Acute) Cephalgia (Acute) KIMI (acute kidney injury) (Resolved) Benign soft tissue neoplasm (Resolved) Community acquired pneumonia (Resolved) Hyperglycemic crisis in diabetes mellitus (Resolved) Hypertensive crisis (Resolved) Vertigo (Resolved) Impressions 1. Debility due to Subdural hemorrhage, intracerebral hemorrhage, interventricular hemorrhage and subarachnoid hemorrhage sustained in a fall while on Warfarin. Confusion and LOC are improving. Better able to participate in conversations about his care and progress. 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 He was able able to tell me what he had to take care of and on this past Friday he had halting speech and was taking significantly longer to process what he wanted to say. 2. cough - much better since the Cozaar was discontinued. 3. 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 He will need to follow up with a driver/guide post DC. Creat is creeping up and he was reminded once again to keep his fluid intake up. The HCTZ has helped with the BP control however, his urine OP is exceeding his oral intake....edema is better. He has a large amount of proteinuria. 4. DM II - Blood sugars have been creeping up since the diet was changed to regular. Add AMaryl 1 mg daily 5. CAD with hx of CABG - stable, no CP 6. PVD 7. anemia due to blood loss - stable 8. recent UTI more likely than not related to urine retention. Seen by urology and started on Flomax. He had a voiding trial over the weekend and he was still retaining > 400 cc's of urine......on Proscar and Flomax 0.4 mg once daily. will increase the FLomax to BID and repeat a voiding trial ......if he is still retaining > 400 cc's a day will consult Urology. He had a recent US of the kidneys at the last hospital so will request that they send us the report and will also request the urine culture results. 9. 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 Depression - started on Sertraline last Friday with his permission. No adverse SE's reported voiding trial on or Friday....on Flomax 0.4 mg BID and Proscar 5 mg Add Miralax to the drug regimen and give MOM 30 cc's today weigh today Continue to urge him to increase his oral intake Recheck lab in the AM on Continue Keflex for a total of 10 days for UTI due to Linn Add Amaryl 1 mg daily maintain the BS's under 180 He was orthostatic but, asymptomatic prior to the discontinuation of the Cozaar. Will add Terazocin for BP at night, 1 mg and check orthostatics for the next 4 days Code Visit Inpatient E&M: 37798 Subs Hosp L2
[2019-08-10] MEDS: Ondansetron ODT 4 MG Tablet PO (08:20)
[2019-08-10] MEDS: Magnesium Hydroxide 30 ML UDC PO (09:58)
[2019-08-10] MEDS: NYSTATIN 500,000 UNIT/5 ML UDC 500000 UNIT PO ×4 (09:59→21:49)
[2019-08-10] MEDS: Heparin Injection (Vial) 5,000 UNIT/ML VIAL 5000 UNIT SC ×2 (09:59→21:49)
[2019-08-10] MEDS: Metoprolol Tartrate 50 MG Tablet PO ×2 (09:59→21:50)
[2019-08-10] MEDS: Tamsulosin HCl 0.4 MG Capsule PO ×2 (09:59→21:52)
[2019-08-10] MEDS: Finasteride 5 MG Tablet PO (09:59)
[2019-08-10] MEDS: levETIRAcetam 500 MG Tablet PO ×2 (09:59→21:52)
[2019-08-10] MEDS: Senna/Docusate Sodium 1 Tablet 2 TABLET PO ×2 (09:59→21:50)
[2019-08-10] MEDS: Sertraline 50 MG Tablet PO (09:59)
[2019-08-10] MEDS: Cephalexin 500 MG Capsule PO ×2 (09:59→21:52)
[2019-08-10] MEDS: Famotidine 20 MG Tablet PO (09:59)
[2019-08-10] MEDS: Nystatin Powder 15gm Bottle 1 APPLIC TOPICAL ×2 (10:07→21:54)
[2019-08-10] MEDS: Menthol/Lanolin/Calamine/Znox 113 GM Tube 1 APPLIC TOPICAL ×2 (10:07→22:00)
[2019-08-10] MEDS: Glucerna Shake 120 ML LIQUID PO ×3 (10:07→17:18)
[2019-08-10] MEDS: Polyethylene Glycol 3350 17 GM PACKET PO (10:09)
[2019-08-10 16:56] LABS: Bedside Glucose 187 mg/dL (70-110)
[2019-08-10] MEDS: Doxazosin 1 MG Tablet PO (21:49)
[2019-08-10] MEDS: amLODIPine 10 MG Tablet PO (21:50)
[2019-08-10] MEDS: MELATONIN 3 MG TABLET PO (21:53)
[2019-08-10] MEDS: Atorvastatin Calcium 40 MG Tablet PO (21:53)
[2019-08-11] VITALS (10 sets, daily range): BP systolic 118–148; BP diastolic 52–67; PULSE 59–84; RESP 16–18; TEMP 36.3–36.6; O2SAT 94–95
[2019-08-11] MEDS: hydrALAZINE 50 MG Tablet 75 MG PO ×3 (06:05→21:06)
[2019-08-11] MEDS: Acetaminophen 500 MG Tablet 1000 MG PO ×2 (06:05→21:03)
[2019-08-11 06:45] LABS: Bedside Glucose 159 mg/dL (70-110)
[2019-08-11] MEDS: Famotidine 20 MG Tablet PO (09:13)
[2019-08-11] MEDS: Sertraline 50 MG Tablet PO (09:15)
[2019-08-11] MEDS: Finasteride 5 MG Tablet PO (09:15)
[2019-08-11] MEDS: Polyethylene Glycol 3350 17 GM PACKET PO (09:16)
[2019-08-11] MEDS: NYSTATIN 500,000 UNIT/5 ML UDC 500000 UNIT PO ×4 (09:16→21:04)
[2019-08-11] MEDS: Glimepiride 1 MG Tablet PO (09:17)
[2019-08-11] MEDS: Cephalexin 500 MG Capsule PO ×2 (09:17→21:05)
[2019-08-11] MEDS: Tamsulosin HCl 0.4 MG Capsule PO ×2 (09:17→21:06)
[2019-08-11] MEDS: Heparin Injection (Vial) 5,000 UNIT/ML VIAL 5000 UNIT SC ×2 (09:18→21:05)
[2019-08-11] MEDS: levETIRAcetam 500 MG Tablet PO ×2 (09:19→21:05)
[2019-08-11] MEDS: Glucerna Shake 120 ML LIQUID PO ×4 (09:22→21:05)
[2019-08-11] MEDS: Senna/Docusate Sodium 1 Tablet 2 TABLET PO ×2 (09:24→21:03)
[2019-08-11] MEDS: Menthol/Lanolin/Calamine/Znox 113 GM Tube 1 APPLIC TOPICAL ×2 (09:32→21:06)
[2019-08-11] MEDS: Nystatin Powder 15gm Bottle 1 APPLIC TOPICAL ×2 (09:33→21:04)
[2019-08-11] MEDS: Metoprolol Tartrate 50 MG Tablet PO ×2 (13:22→21:05)
[2019-08-11 16:26] LABS: Bedside Glucose 150 mg/dL (70-110)
[2019-08-11] MEDS: amLODIPine 10 MG Tablet PO (21:04)
[2019-08-11] MEDS: MELATONIN 3 MG TABLET PO (21:04)
[2019-08-11] MEDS: Atorvastatin Calcium 40 MG Tablet PO (21:05)
[2019-08-11] MEDS: Doxazosin 1 MG Tablet PO (21:06)
[2019-08-12] VITALS (9 sets, daily range): BP systolic 124–171; BP diastolic 59–73; PULSE 63–80; RESP 16; TEMP 36.3–36.6; O2SAT 92–93
[2019-08-12 05:57] LABS: Absolute Lymphocyte Count 1.63 X10^3/uL (0.83-4.51); Absolute Neutrophil Count 4.7 X10^3/uL (2.0-7.7); Basophil# 0.04 X10^3/uL; Basophil% 0.5 % (0-1); Eosinophil# 0.26 X10^3/uL; Eosinophils% 3.6 % (0-5); Hematocrit 36.2 % (40-54); Hemoglobin 11.2 g/dL (13.0-16.5); Lymphocyte # 1.63 X10^3/ul (4.0); Lymphocyte % 22.3 % (19-41); Mean Corp Hgb Conc 30.9 g/dL (32-36); Mean Corpuscular Hgb 26.4 pg (27.0-32.0); Mean Corpuscular Volume 85.4 fL (80-94); Mean Platelet Vol. 9.3 fl (6.2-12.0); Monocyte% 8.2 % (0-10); NRBC Flagged by Analyzer 0 % (0-5); Neutrophil # 4.74 X10^3/uL (2.7-7.7); Platelet Count 248 K/mm3 (150-450); RBC Distribution Width SD 43.5 fl (35.1-43.9); Red Blood Count 4.24 M/mm3 (4.6-6.2); White Blood Count 7.3 K/mm3 (4.4-11.0)
[2019-08-12 06:19] LABS: Anion Gap 5 (5-15); BUN 32 mg/dL (7-18); BUN/Creat Ratio 13.6 RATIO (10-20); Chloride 110 mmol/L (98-107); Creatinine, Serum 2.36 mg/dL (0.70-1.30); EST Glomerular Filtration Rate 29 mL/min (>60); Est Glom Filt Rate - Afr Amer 35 mL/min (>60); Estimated Creatinine Clearance 28.18 ml/min; Glucose 93 mg/dL (74-106); Potassium 4.1 mmol/L (3.5-5.1); Sodium Level 144 mmol/L (136-145)
[2019-08-12] MEDS: Acetaminophen 500 MG Tablet 1000 MG PO ×3 (06:46→20:32)
[2019-08-12] MEDS: hydrALAZINE 50 MG Tablet 75 MG PO ×3 (06:46→20:35)
[2019-08-12 07:01] LABS: Bedside Glucose 101 mg/dL (70-110)
[2019-08-12] MEDS: Menthol/Lanolin/Calamine/Znox 113 GM Tube 1 APPLIC TOPICAL ×2 (07:49→20:35)
[2019-08-12] MEDS: Glimepiride 1 MG Tablet PO (07:49)
[2019-08-12] MEDS: Metoprolol Tartrate 50 MG Tablet PO ×2 (07:49→20:34)
[2019-08-12] MEDS: Glucerna Shake 120 ML LIQUID PO ×2 (07:50→14:30)
[2019-08-12] MEDS: Benzonatate 100 MG Capsule PO (07:51)
[2019-08-12] MEDS: Finasteride 5 MG Tablet PO (07:51)
[2019-08-12] MEDS: levETIRAcetam 500 MG Tablet PO ×2 (07:51→20:34)
[2019-08-12] MEDS: Famotidine 20 MG Tablet PO (07:51)
[2019-08-12] MEDS: Heparin Injection (Vial) 5,000 UNIT/ML VIAL 5000 UNIT SC ×2 (07:53→20:34)
[2019-08-12] MEDS: Sertraline 50 MG Tablet PO (07:55)
[2019-08-12] MEDS: Nystatin Powder 15gm Bottle 1 APPLIC TOPICAL ×2 (07:56→20:33)
[2019-08-12] MEDS: Cephalexin 500 MG Capsule PO ×2 (09:29→20:34)
[2019-08-12] MEDS: Tamsulosin HCl 0.4 MG Capsule PO ×2 (09:29→20:35)
[2019-08-12] MEDS: NYSTATIN 500,000 UNIT/5 ML UDC 500000 UNIT PO ×4 (09:34→20:33)
--- NOTE | 2019-08-12 11:20 | PN_ITS ---
Patient Problems: Active and Suspected Problems (Last Reviewed 08/02/19 @ 07:57 by Radha Vega DO) Subdural hemorrhage (Acute) 07/22/19 Subarachnoid hemorrhage (Acute) 07/22/19 Intracerebral hemorrhage (Acute) 07/22/19 Closed intraventricular hemorrhage (Acute) 07/22/19 Cephalgia (Acute) due to recent intracerebral hemorrhage Subjective: Day #5 Keflex Afebrile since admission. Blood pressures have ranged from 118/52-140 8/73 for the past 2 days. Orthostatics are positive today with the lying pulse rate of 66 increasing to 76 with standing. The blood pressure lying down was 148/73 and decreased to 124/64 with standing. He is maintaining an appropriate oxygen saturation on room air. All lab was personally reviewed. White blood cell count is 7.3 with an unremarkable differential. Hemoglobin is 11.2, down from 11.7 on 08/06/2019. Potassium is 4.1. Serum bicarb is 29. BUN is 32 with a creatinine of 2.36, up from 2.11 at admission. Blood sugars are adequately controlled. - Physical Exam Vitals/I&O's: Vital Signs Temp Pulse Resp BP Pulse Ox 97.9 F 66 16 148/73 H 92 08/12/19 07:54 08/12/19 07:54 08/12/19 07:54 08/12/19 07:54 08/12/19 07:54 Oxygen Flow Rate (L/min) 2 Oxygen Delivery Method Room Air Weight: 162 lb 3.2 oz Body Mass Index (BMI) 29.0 Finger Stick Blood Glucose 480 Orthostatic Vital Signs Start: 07/30/19 06:49 Freq: 0600 Status: Active Protocol: Activity Type Activity Date Activity User E-Sign Co-Sign Detail Recorded Client Recorded Date Recorded By Document 08/12/19 05:36 [facility] [id number] 08/12/19 05:54 [facility] 08/12/19 05:36 Orthostatic Vitals Standing -Blood Pressure (90/60-120/80 mm Hg) 124/64 H -Extremity Use Right Arm -Pulse Rate (60-100 beats/min) 76 Sitting -Blood Pressure (90/60-120/80 mm Hg) 150/67 H -Extremity Use Right Arm -Pulse Rate (60-100 beats/min) 71 Lying -Blood Pressure (90/60-120/80 mm Hg) 148/73 H -Extremity Use Right Arm -Pulse Rate (60-100 beats/min) 66 Intake and Output for Last 24 Hours 08/10/19 08/11/19 08/12/19 23:59 23:59 23:59 Intake Total 820 / 820 590 / 590 300 / 300 Output Total 1150 / 1350 700 / 700 350 / 350 Balance -330 / -530 -110 / -110 -50 / -50 General: Alert, Oriented x3, Cooperative, No apparent distress HEENT: Atraumatic, PERRLA, EOMI, Normocephalic Oral: Dry Mucosa Neck: Supple, No JVD, Trachea Midline Lungs: Clear to auscultation, Normal air movement Cardiovascular: Regular rate, Regular Rhythm, No Gallop Abdomen: Bowel Sounds Present, Soft, Non Tender, Non-Distended Extremities: No cyanosis, No edema, No Calf Tenderness Neurological: Cranial nerves II-XII grossly intact, Neuro grossly intact Psych/Mental Status: Normal Affect, Appropriate Laboratory Results 08/11/19 16:22: POC Glucose 150 H 08/12/19 05:42: WBC 7.3, RBC 4.24 L, Hgb 11.2 L, Hct 36.2 L, MCV 85.4, MCH 26.4 L, MCHC 30.9 L, RDW Std Deviation 43.5, RDW Coeff of Raturo 14.0, Plt Count 248, MPV 9.3, Immature Gran % (Auto) 0.400, Neut % (Auto) 65.0, Lymph % (Auto) 22.3, [place] % (Auto) 8.2, Eos % (Auto) 3.6, Baso % (Auto) 0.5, Absolute Neuts (auto) 4.7, Absolute Lymphs (auto) 1.63, Nucleated RBC % 0 08/12/19 05:42: Sodium 144, Potassium 4.1, Chloride 110 H, Carbon Dioxide 29.0, Anion Gap 5, BUN 32 H, Creatinine 2.36 H, Estim Creat Clear Calc 28.18, Est GFR (MDRD) Af Amer 35 L, Est GFR (MDRD) Non-Af 29 L, BUN/Creatinine Ratio 13.6, Glucose 93, Calcium 8.0 L 08/12/19 06:51: POC Glucose 101 Current Medications Acetaminophen (Tylenol) 1,000 mg PO Q8 [facility] Last Admin: 08/12/19 06:46 Dose: 1,000 mg Documented by: Amlodipine Besylate (Norvasc) 10 mg PO QHS [facility] Last Admin: 08/11/19 21:04 Dose: 10 mg Documented by: Atorvastatin Calcium (Lipitor) 40 mg PO QHS [facility] Last Admin: 08/11/19 21:05 Dose: 40 mg Documented by: Benzonatate (Tessalon Perle) 100 mg PO TID PRN PRN PRN Reason: COUGH Last Admin: 08/12/19 07:51 Dose: 100 mg Documented by: Bisacodyl (Dulcolax) 10 mg RECTAL .PRN X 1 PRN PRN Reason: Constipation Calamine/Phenol (Calmoseptine Ointment) 1 applic TOPICAL BID [facility]; Protocol Last Admin: 08/12/19 07:49 Dose: 1 applicatio Documented by: Cephalexin (Keflex) 500 mg PO Q12 [facility] Stop: 08/17/19 22:01 Last Admin: 08/12/19 09:29 Dose: 500 mg Documented by: Cholecalciferol (Vitamin D) 3,000 unit PO DAILY [facility] Last Admin: 08/12/19 07:48 Dose: 3,000 unit Documented by: Clonidine (Catapres) 0.1 mg PO Q8H PRN PRN PRN Reason: SBP>160 OR DBP>99 Last Admin: 08/04/19 06:13 Dose: 0.1 mg Documented by: Doxazosin Mesylate (Cardura) 1 mg PO HS [facility] Last Admin: 08/11/19 21:06 Dose: 1 mg Documented by: Famotidine (Pepcid) 20 mg PO DAILY [facility] Last Admin: 08/12/19 07:51 Dose: 20 mg Documented by: Finasteride (Proscar) 5 mg PO DAILY [facility] Last Admin: 08/12/19 07:51 Dose: 5 mg Documented by: Glimepiride (Amaryl) 1 mg PO DAILY@0800 [facility] Last Admin: 08/12/19 07:49 Dose: 1 mg Documented by: Guaifenesin/Codeine Phosphate (Robitussin Ac) 10 ml PO Q6H PRN PRN PRN Reason: COUGH/CONGESTION Last Admin: 08/09/19 21:28 Dose: 10 ml Documented by: Heparin Sodium (Porcine) (Heparin Na) 5,000 unit SC Q12 [facility] Last Admin: 08/12/19 07:53 Dose: 5,000 unit Documented by: Hydralazine HCl (Apresoline) 75 mg PO TID [facility] Last Admin: 08/12/19 06:46 Dose: 75 mg Documented by: Levetiracetam (Keppra Tablet) 500 mg PO BID [facility] Last Admin: 08/12/19 07:51 Dose: 500 mg Documented by: Magnesium Hydroxide (Milk Of Magnesia) 30 ml PO .PRN X 1 PRN PRN Reason: Constipation Last Admin: 08/10/19 09:58 Dose: 30 ml Documented by: Melatonin (Melatonin) 3 mg PO QHS [facility] Last Admin: 08/11/19 21:04 Dose: 3 mg Documented by: Metoprolol Tartrate (Lopressor (Beta Laz)) 50 mg PO BID [facility] Last Admin: 08/12/19 07:49 Dose: 50 mg Documented by: Nutritional Formula (Lactose Free) (Glucerna Shake) 120 ml PO 4X/DAY [facility] Last Admin: 08/12/19 07:50 Dose: 120 ml Documented by: Nystatin (Nystatin) 500,000 unit PO 4X/DAY [facility] Last Admin: 08/12/19 09:34 Dose: 500,000 unit Documented by: Nystatin (Mycostatin Powder) 1 applic TOPICAL BID [facility]; Protocol Last Admin: 08/12/19 07:56 Dose: 1 applicatio Documented by: Ondansetron HCl (Zofran Odt) 4 mg PO Q8H PRN PRN PRN Reason: NAUSEA Last Admin: 08/10/19 08:20 Dose: 4 mg Documented by: Oxycodone HCl (Oxyir) 5 mg PO Q6H PRN PRN PRN Reason: Pain Last Admin: 08/04/19 13:59 Dose: 5 mg Documented by: Polyethylene Glycol (Miralax) 17 gm PO DAILY [facility] Last Admin: 08/12/19 07:51 Dose: Not Given Documented by: Senna/Docusate Sodium (Senokot-S, Crissy-Colace) 2 tablet PO BID [facility] Last Admin: 08/12/19 07:58 Dose: Not Given Documented by: Sertraline HCl (Zoloft) 50 mg PO DAILY [facility] Last Admin: 08/12/19 07:55 Dose: 50 mg Documented by: Sodium Chloride () 10 - 40 ml IV UD PRN PRN Reason: SALINE FLUSH Last Admin: 08/10/19 02:06 Dose: 10 ml Documented by: Tamsulosin HCl (Flomax) 0.4 mg PO BID [facility] Last Admin: 08/12/19 09:29 Dose: 0.4 mg Documented by: Medical Necessity - Tobacco Use Smoking Status: Former smoker Tobacco Use: Non-smoker Assessment/Plan All Active Problems (Last Reviewed 08/02/19 @ 07:57 by Radha Vega DO) Subdural hemorrhage (Acute) Subarachnoid hemorrhage (Acute) Intracerebral hemorrhage (Acute) Closed intraventricular hemorrhage (Acute) Cephalgia (Acute) KIMI (acute kidney injury) (Resolved) Benign soft tissue neoplasm (Resolved) Community acquired pneumonia (Resolved) Hyperglycemic crisis in diabetes mellitus (Resolved) Hypertensive crisis (Resolved) Vertigo (Resolved) Impressions 1. Debility due to Subdural hemorrhage, intracerebral hemorrhage, interventricular hemorrhage and subarachnoid hemorrhage sustained in a fall while on Warfarin. Confusion and LOC are improving. Better able to participate in conversations about his care and progress. 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 He was able able to tell me what he had to take care of and on this past Friday he had halting speech and was taking significantly longer to process what he wanted to say. 2. cough - much better since the Cozaar was discontinued. 3. 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 He will need to follow up with a category consultant post DC. Creat is creeping up and he was reminded once again to keep his fluid intake up. The HCTZ has helped with the BP control however, his urine OP is exceeding his oral intake....edema is better. He has a large amount of proteinuria. 4. DM II - Blood sugars have been creeping up since the diet was changed to regular. Add AMaryl 1 mg daily 5. CAD with hx of CABG - stable, no CP 6. PVD 7. anemia due to blood loss - stable 8. recent UTI more likely than not related to urine retention. Seen by urology and started on Flomax. He had a voiding trial over the weekend and he was still retaining > 400 cc's of urine......on Proscar and Flomax 0.4 mg once daily. will increase the FLomax to BID and repeat a voiding trial ......if he is still retaining > 400 cc's a day will consult Urology. He had a recent US of the kidneys at the last hospital so will request that they send us the report and will also request the urine culture results. 9. 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 Depression - started on Sertraline last Friday with his permission. No adverse SE's reported. I reviewed a note from [facility] regarding starting him on an appetite stimulant......he will likely be leaving soon and I suspect he will eat better at home when he is doing the cooking. Continue the Sertraline 11. Orthostatic hypotension - asymptomatic .....no changes in the drug regimen for now voiding trial today. Code Visit Inpatient E&M: 68014 Subs Hosp L2
[2019-08-12 17:16] LABS: Bedside Glucose 194 mg/dL (70-110)
[2019-08-12] MEDS: amLODIPine 10 MG Tablet PO (20:33)
[2019-08-12] MEDS: MELATONIN 3 MG TABLET PO (20:33)
[2019-08-12] MEDS: Atorvastatin Calcium 40 MG Tablet PO (20:34)
[2019-08-12] MEDS: Doxazosin 1 MG Tablet PO (20:35)
--- NOTE | 2019-08-12 20:55 | NURSING ---
PT DENIES URGE TO VOID. BLADDER SCANNED FOR 202 ML URINE IN BLADDER.
[2019-08-13] VITALS (8 sets, daily range): BP systolic 133–156; BP diastolic 56–79; PULSE 68–80; RESP 12–16; TEMP 36.6; O2SAT 94–96
--- NOTE | 2019-08-13 03:45 | NURSING ---
PT WAKENS TO VERBAL STIMULATION. PT HAS NO URGE TO VOID AND UNABLE TO PASS URINE. BLADDER SCANNED FOR >500 ML URINE. STRAIGHT CATHED-MEETING MILD RESISTANCE WITH CATHETER. PT TOLERATES PROCEDURE WELL. CATHED FOR 400 ML CLEAR, YELLOW URINE WITHOUT ODOR.
[2019-08-13] MEDS: Acetaminophen 500 MG Tablet 1000 MG PO ×3 (05:58→23:04)
[2019-08-13] MEDS: hydrALAZINE 50 MG Tablet 75 MG PO (05:59)
[2019-08-13 06:25] LABS: Bedside Glucose 113 mg/dL (70-110)
[2019-08-13] MEDS: Finasteride 5 MG Tablet PO (08:06)
[2019-08-13] MEDS: Sertraline 50 MG Tablet PO (08:06)
[2019-08-13] MEDS: Famotidine 20 MG Tablet PO (08:06)
[2019-08-13] MEDS: levETIRAcetam 500 MG Tablet PO ×2 (08:07→23:03)
[2019-08-13] MEDS: Nystatin Powder 15gm Bottle 1 APPLIC TOPICAL ×2 (08:07→23:04)
[2019-08-13] MEDS: Cephalexin 500 MG Capsule PO ×2 (08:07→23:03)
[2019-08-13] MEDS: Glimepiride 1 MG Tablet PO (08:07)
[2019-08-13] MEDS: Menthol/Lanolin/Calamine/Znox 113 GM Tube 1 APPLIC TOPICAL ×2 (08:07→23:02)
[2019-08-13] MEDS: Tamsulosin HCl 0.4 MG Capsule PO ×2 (08:07→23:03)
[2019-08-13] MEDS: NYSTATIN 500,000 UNIT/5 ML UDC 500000 UNIT PO ×4 (08:08→23:04)
[2019-08-13] MEDS: Metoprolol Tartrate 50 MG Tablet PO ×2 (08:09→23:04)
[2019-08-13] MEDS: Heparin Injection (Vial) 5,000 UNIT/ML VIAL 5000 UNIT SC ×2 (09:00→23:02)
--- NOTE | 2019-08-13 09:21 | NURSING ---
OFF UNIT AT APPT WITH SON
--- NOTE | 2019-08-13 09:26 | CASEMGMT ---
Social Work Spoke with IDT about pt's progress. Pt's works during the day and IDT still has some safety concerns with pt returning home and having issues with incontinence. IDT recommending to [facility]Team Friday as discuss DC date. Insurance update 08/13. Will continue to follow. CALEB LopezW
[2019-08-13] MEDS: Ondansetron ODT 4 MG Tablet PO (11:07)
--- NOTE | 2019-08-13 13:19 | PCM.PN.BLA ---
Progress Note The Mason was removed on 08/12/2019 and he has had some residual but, < 400. Will leave the mason out and continue to monitor the post void residual. Straight cath PRN for a residual of 400 or greater. Discussed with PT/OT and they do not feel that he is ready for discharge due to safety concerns. His works and he will be home by himself. She was been bringing him some fast food which he is eating. He is afebrile. Systolic blood pressure continues to be elevated. He has no complaints. He would like to go home and I reinforced with him that I do not feel that he would be safe. He is very alert now and he is talkative and pleasant but, he is impulsive and has difficulty doing what is asked of him.....has trouble following directions. rare cough alert, pleasant Lungs are CTA Heart - RRR, no gallop Abd-soft, NT, ND, no bladder distention no edema Impressions 1. HTN - not adequately controlled yet. Will increase the Hydralazine to 100 mg TID. 2. CRF stage 3-4 - creat is gradually increasing. Intake is erratic. Requires constant reminders from the staff to drink water....will continue to monitor the creat, 3. DM II - blood sugars are well controlled with no hypoglycemia. Continue Amaryl 1 mg daily Continue DVT prophylaxis with heparin subcu Continue famotidine for GI prophylaxis Code Visit Inpatient E&M: 25481 Subs Hosp L2
[2019-08-13] MEDS: hydrALAZINE 50 MG Tablet 100 MG PO ×2 (13:53→23:02)
[2019-08-13 16:40] LABS: Bedside Glucose 162 mg/dL (70-110)
[2019-08-13] MEDS: Doxazosin 1 MG Tablet PO (23:03)
[2019-08-13] MEDS: amLODIPine 10 MG Tablet PO (23:04)
[2019-08-13] MEDS: Atorvastatin Calcium 40 MG Tablet PO (23:04)
[2019-08-13] MEDS: MELATONIN 3 MG TABLET PO (23:04)
--- NOTE | 2019-08-13 23:10 | NURSING ---
upon hs assessment and medical equipment sales by this nurse and RN, pt states to staff this is getting a little ridiculous. this nurse apologized to patient and stated I apologize sir, but it has been just a little busy this evening. i was not able to get in here until now. this nurse proceeds to tell pt about meds for the night. pt questions how many pills he is receiving. This nurse tells him that he receives 12 pills and explained what they were. pt states this is bullshit. RN present and took over care of pt at that time. pt took meds well and was thankful after.
--- NOTE | 2019-08-14 03:43 | NURSING ---
Reviewed and agree with [employer]PER[employer] documentation and charting.
[2019-08-14 06:40] LABS: Bedside Glucose 82 mg/dL (70-110)
[2019-08-14 06:48] VITALS: BP 133/62; PULSE 64
[2019-08-14] MEDS: Acetaminophen 500 MG Tablet 1000 MG PO ×3 (06:48→21:29)
[2019-08-14] MEDS: hydrALAZINE 50 MG Tablet 100 MG PO ×3 (06:48→21:29)
[2019-08-14 07:41] VITALS: BP 133/62; PULSE 64; RESP 18; TEMP 36.6; O2SAT 93
[2019-08-14] MEDS: Nystatin Powder 15gm Bottle 1 APPLIC TOPICAL ×2 (07:56→21:36)
[2019-08-14] MEDS: Menthol/Lanolin/Calamine/Znox 113 GM Tube 1 APPLIC TOPICAL ×2 (07:56→21:36)
[2019-08-14 07:58] VITALS: BP 133/62; PULSE 64
[2019-08-14] MEDS: Famotidine 20 MG Tablet PO (07:58)
[2019-08-14] MEDS: Tamsulosin HCl 0.4 MG Capsule PO ×2 (07:58→21:30)
[2019-08-14] MEDS: levETIRAcetam 500 MG Tablet PO ×2 (07:58→21:29)
[2019-08-14] MEDS: Glimepiride 1 MG Tablet PO (07:58)
[2019-08-14] MEDS: Metoprolol Tartrate 50 MG Tablet PO ×2 (07:58→21:29)
[2019-08-14] MEDS: NYSTATIN 500,000 UNIT/5 ML UDC 500000 UNIT PO ×4 (07:58→21:30)
[2019-08-14] MEDS: Finasteride 5 MG Tablet PO (07:58)
[2019-08-14] MEDS: Heparin Injection (Vial) 5,000 UNIT/ML VIAL 5000 UNIT SC ×2 (07:59→21:30)
[2019-08-14] MEDS: Cephalexin 500 MG Capsule PO ×2 (07:59→21:29)
[2019-08-14] MEDS: Sertraline 50 MG Tablet PO (08:00)
--- NOTE | 2019-08-14 11:28 | PCM.PN.BLA ---
Progress Note Afebile VSS Maintaining appropriate oxygen saturation on RA Oral intake is erratic. Oral intake for 08/13/2019 was recorded as 650 cc. 400 cc of urine was reported. The Linn catheter was discontinued and the urine residuals on 08/13/2019 were less than 400 cc Discussed with nursing - no problems that need addressed Reviewed the PT/OT notes Medication list reviewed. Blood sugar record was reviewed and all blood sugars are under 200. Currently on only Amaryl 1 mg daily Alert, pleasant MM more moist today Lungs - CTA H-RRR, no gallop abd - soft NT ND no peripheral edema Impressions 1. CRF - creat increased from 2.11 at admission to 2.36 yesterday. Must be constantly reminded to drink. Will recheck the BMP on Friday. If the creat is not improved on Friday consider nephrology consult. 2. DM II controlled with Amaryl. Glucophage DC'd due to increasing creat. STROKE Vital Signs/Narrative: Vital Signs Temp Pulse Resp BP Pulse Ox 08/14/19 07:58 64 133/62 H 08/14/19 07:41 97.8 F 64 18 133/62 H 93 Code Visit Inpatient E&M: 98760 Subs Hosp L1
--- NOTE | 2019-08-14 11:41 | NURSING ---
pt unable to void, bladder scanned for 516mL, straight cath inserted with 250mL urine return, pt tolerated well. Urine clear but straw colored, fluids encouraged but pt is hesitant despite staff 1:1. Refused therapy x2 this AM.
[2019-08-14 14:43] VITALS: BP 124/61; PULSE 64
--- NOTE | 2019-08-14 16:30 | NURSING ---
Pt voided 300mL, post void bladder scan performed with PVR of 75mL. Will continue voiding trials and fluids encouraged.
[2019-08-14 17:15] LABS: Bedside Glucose 175 mg/dL (70-110)
[2019-08-14] MEDS: Dronabinol 2.5 MG Capsule PO (17:31)
[2019-08-14 21:29] VITALS: BP 150/65; PULSE 80
[2019-08-14] MEDS: Doxazosin 1 MG Tablet PO (21:29)
[2019-08-14] MEDS: MELATONIN 3 MG TABLET PO (21:29)
[2019-08-14] MEDS: Atorvastatin Calcium 40 MG Tablet PO (21:30)
[2019-08-14] MEDS: amLODIPine 10 MG Tablet PO (21:30)
[2019-08-14 21:46] VITALS: BP 150/65; PULSE 80; RESP 16; TEMP 37.1; O2SAT 95
--- NOTE | 2019-08-15 06:00 | NURSING ---
Bladder scanned for >415cc. Notified Dr. Ortiz. MANDO to straight cath X1
[2019-08-15 06:06] VITALS: BP 136/70; PULSE 72
[2019-08-15] MEDS: hydrALAZINE 50 MG Tablet 100 MG PO ×3 (06:06→21:40)
[2019-08-15] MEDS: Dronabinol 2.5 MG Capsule PO ×2 (06:07→15:47)
[2019-08-15] MEDS: Acetaminophen 500 MG Tablet 1000 MG PO ×3 (06:07→21:39)
[2019-08-15 06:50] LABS: Bedside Glucose 157 mg/dL (70-110)
[2019-08-15 07:44] VITALS: BP 135/63; PULSE 72; RESP 18; TEMP 36.7; O2SAT 94
[2019-08-15 10:00] VITALS: PULSE 72
[2019-08-15] MEDS: NYSTATIN 500,000 UNIT/5 ML UDC 500000 UNIT PO ×3 (10:00→15:48)
[2019-08-15] MEDS: Glimepiride 1 MG Tablet PO (10:00)
[2019-08-15] MEDS: Finasteride 5 MG Tablet PO (10:00)
[2019-08-15] MEDS: Tamsulosin HCl 0.4 MG Capsule PO ×2 (10:00→21:39)
[2019-08-15] MEDS: levETIRAcetam 500 MG Tablet PO ×2 (10:00→21:39)
[2019-08-15] MEDS: Metoprolol Tartrate 50 MG Tablet PO ×2 (10:00→21:40)
[2019-08-15] MEDS: Heparin Injection (Vial) 5,000 UNIT/ML VIAL 5000 UNIT SC ×2 (10:01→21:38)
[2019-08-15] MEDS: Cephalexin 500 MG Capsule PO ×2 (10:01→21:39)
[2019-08-15] MEDS: Famotidine 20 MG Tablet PO (10:01)
[2019-08-15] MEDS: Sertraline 50 MG Tablet PO (10:02)
[2019-08-15] MEDS: Nystatin Powder 15gm Bottle 1 APPLIC TOPICAL ×2 (10:03→21:41)
[2019-08-15] MEDS: Menthol/Lanolin/Calamine/Znox 113 GM Tube 1 APPLIC TOPICAL ×2 (10:03→21:41)
[2019-08-15 13:11] VITALS: PULSE 75
[2019-08-15 16:25] LABS: Bedside Glucose 98 mg/dL (70-110)
--- NOTE | 2019-08-15 16:40 | NURSING ---
pt voided 400mL, bladder scanned with post void residual of 71mL, pt voiced no concerns, will continue to voiding trials and fluids encouraged.
[2019-08-15 20:00] VITALS: BP 135/61; PULSE 68; RESP 18; TEMP 36.8; O2SAT 94
[2019-08-15] MEDS: MELATONIN 3 MG TABLET PO (21:39)
[2019-08-15] MEDS: Atorvastatin Calcium 40 MG Tablet PO (21:39)
[2019-08-15] MEDS: amLODIPine 10 MG Tablet PO (21:39)
[2019-08-15] MEDS: Doxazosin 1 MG Tablet PO (21:39)
[2019-08-15 21:40] VITALS: BP 144/65; PULSE 72
[2019-08-16] VITALS (8 sets, daily range): BP systolic 141–162; BP diastolic 62–70; PULSE 65–80; RESP 16; TEMP 36.4–36.5; O2SAT 94–95
[2019-08-16 06:10] LABS: BUN 35 mg/dL (7-18); BUN/Creat Ratio 14.1 RATIO (10-20); Calcium,Total 7.5 mg/dL (8.5-10.1); Chloride 115 mmol/L (98-107); Creatinine, Serum 2.48 mg/dL (0.70-1.30); EST Glomerular Filtration Rate 28 mL/min (>60); Est Glom Filt Rate - Afr Amer 33 mL/min (>60); Estimated Creatinine Clearance 26.81 ml/min; Glucose 159 mg/dL (74-106); Phosphorus 3.1 mg/dL (2.5-4.9); Potassium 4.1 mmol/L (3.5-5.1); Sodium Level 146 mmol/L (136-145)
[2019-08-16] MEDS: Acetaminophen 500 MG Tablet 1000 MG PO ×3 (06:27→20:20)
[2019-08-16] MEDS: hydrALAZINE 50 MG Tablet 100 MG PO ×3 (06:27→20:24)
[2019-08-16] MEDS: Dronabinol 2.5 MG Capsule PO ×2 (06:27→17:12)
[2019-08-16 07:11] LABS: Bedside Glucose 123 mg/dL (70-110)
[2019-08-16] MEDS: Tamsulosin HCl 0.4 MG Capsule PO ×2 (08:26→20:23)
[2019-08-16] MEDS: Sertraline 50 MG Tablet PO (08:26)
[2019-08-16] MEDS: levETIRAcetam 500 MG Tablet PO ×2 (08:26→20:22)
[2019-08-16] MEDS: Cephalexin 500 MG Capsule PO ×2 (08:26→20:23)
[2019-08-16] MEDS: Glimepiride 1 MG Tablet PO (08:27)
[2019-08-16] MEDS: Finasteride 5 MG Tablet PO (08:27)
[2019-08-16] MEDS: Famotidine 20 MG Tablet PO (08:27)
[2019-08-16] MEDS: Metoprolol Tartrate 50 MG Tablet PO ×2 (08:29→20:22)
[2019-08-16] MEDS: Heparin Injection (Vial) 5,000 UNIT/ML VIAL 5000 UNIT SC ×2 (08:30→20:23)
[2019-08-16] MEDS: Menthol/Lanolin/Calamine/Znox 113 GM Tube 1 APPLIC TOPICAL ×2 (08:30→20:24)
[2019-08-16] MEDS: Nystatin Powder 15gm Bottle 1 APPLIC TOPICAL ×2 (08:34→20:21)
--- NOTE | 2019-08-16 10:27 | CASEMGMT ---
Addendum entered by Cha Donnelly 08/17/19 09:21: rescheduled meeting to 08/20 at 3:30 pm. Addendum entered by Cha Donnelly 08/16/19 14:26: Insurance update 08/20 - notified and IDT. Addendum entered by Cha Donnelly 08/16/19 14:25: Spoke with and gave update on patient's progress. Scheduled a meeting with SW and physician 08/19 at 12 pm. Original Note: Social Work IDT met with patient for Team Meeting. Discussed patient's progress in therapy. Pt is SBA to CGA for transfers, 165 ft FWW, denying to complete OT ADL routine, nursing assists with showering. Pt is CGA to min assist for LE ADLS, set up for UE dressing, SBA for grooming, min assist for toileting tasks and CGA with cues. Pt is able to take less rest breaks improving with strength and ROM. ST upgraded diet to reg, thin. Pt has poor appetite - medication started and starting to see some improvements. brining in food for pt. Pt still has occasional cough, lungs are clear. Cognition is very poor, issues with memory, attention, processing, fiancees, telling-time. Pt cannot be home alone d/t poor safety. Pt reports no issues with cognition prior. Nursing pulled cath - encouraging to go to the bathroom. Not using call light at night 4x last night. Explained insurance update 08/13 and continued stay is not guaranteed. pt agreeable to contact with updates. Left message with to discuss DC plans as IDT is recommending SNF and to schedule a meeting with SW and physician. Will continue to follow. CALEB LopezW
--- NOTE | 2019-08-16 10:49 | PCM.PROGNOTE ---
Patient Problems: Active and Suspected Problems (Last Reviewed 08/02/19 @ 07:57 by Radha Vega, ) Subdural hemorrhage (Acute) 07/22/19 Subarachnoid hemorrhage (Acute) 07/22/19 Intracerebral hemorrhage (Acute) 07/22/19 Closed intraventricular hemorrhage (Acute) 07/22/19 Cephalgia (Acute) due to recent intracerebral hemorrhage Subjective: The pt was seen on team rounds today. There was no family present. Afebile VSS Maintaining appropriate oxygen saturation on RA Oral intake is erratic. He will not eat the hospital food and he does not drink unless the nurses are constantly reminding him. He eats fast food that his brings when she visits. He also eats when the nurse feeds him. Discussed with nursing - still requiring help in the BR to get his pants up and down. He is impulsive and last night he got up 4 times by himself without calling for help to try and have a BM. Reviewed the PT/OT/ST notes - his is doing poorly with cognition. He always is not motivated to do self care. He can get his pants and socks on but only if the OT is cuing him. Needs motivation/encouragement to do his PT. All lab was personally reviewed. Sodium today is mildly increased at 146. The BUN is 35 with a creatinine that is now up to 2.48. FBS today was 159. Potassium is 4.1. Medication list reviewed. We increased the Sertraline last week thinking that he is depressed over events recently but, I am now thinking he may have dementia. TSH in June was normal. Has never had an JOSSELYN or RPR and these are going to be ordered. I have never been able to tALK with his ....she works and has not been present for TEAM and during the day except weekends. I know that they have financial difficulties and he is the one who has always managed the finances. He has a son who lives with him and works third shift. I suspect he has been declining since prior to the fall. BS's are adequately controlled. - Physical Exam Vitals/I&O's: Vital Signs Temp Pulse Resp BP Pulse Ox 97.7 F L 73 16 150/70 H 94 08/16/19 07:12 08/16/19 08:29 08/16/19 07:12 08/16/19 07:12 08/16/19 07:12 Oxygen Flow Rate (L/min) 2 Oxygen Delivery Method Room Air Weight: 162 lb 3.211 oz Body Mass Index (BMI) 29.0 Finger Stick Blood Glucose 480 Orthostatic Vital Signs Start: 07/30/19 06:49 Freq: Status: Active Protocol: Activity Type Activity Date Activity User E-Sign Co-Sign Detail Recorded Client Recorded Date Recorded By Document 08/12/19 05:36 [facility] [id number] 08/12/19 05:54 [facility] 08/12/19 05:36 Orthostatic Vitals Standing -Blood Pressure (90/60-120/80 mm Hg) 124/64 H -Extremity Use Right Arm -Pulse Rate (60-100 beats/min) 76 Sitting -Blood Pressure (90/60-120/80 mm Hg) 150/67 H -Extremity Use Right Arm -Pulse Rate (60-100 beats/min) 71 Lying -Blood Pressure (90/60-120/80 mm Hg) 148/73 H -Extremity Use Right Arm -Pulse Rate (60-100 beats/min) 66 Intake and Output for Last 24 Hours 08/14/19 08/15/19 08/16/19 23:59 23:59 23:59 Intake Total 960 / 960 2040 / 2040 390 / 390 Output Total 850 / 850 1500 / 1500 Balance 110 / 110 540 / 540 390 / 390 General: Alert, Cooperative, - - Good mood today. Working with therapy in the multipurpose room. HEENT: PERRLA, EOMI, Normocephalic Oral: Moist Mucosa Neck: Supple, No JVD, No Nodes, Trachea Midline Lungs: Clear to auscultation Cardiovascular: Regular rate, Regular Rhythm, Normal S1, Normal S2, No Gallop Abdomen: Bowel Sounds Present, Soft, Non Tender, Non-Distended Extremities: No clubbing, No cyanosis, No edema Skin: No rashes Neurological: Cranial nerves II-XII grossly intact, Neuro grossly intact - with the exception of cognitive dysfunction Laboratory Results 08/15/19 16:03: POC Glucose 98 08/16/19 05:25: Sodium 146 H, Potassium 4.1, Chloride 115 H, Carbon Dioxide 27.0, BUN 35 H, Creatinine 2.48 H, Estim Creat Clear Calc 26.81, Est GFR (MDRD) Af Amer 33 L, Est GFR (MDRD) Non-Af 28 L, BUN/Creatinine Ratio 14.1, Glucose 159 H, Calcium 7.5 L, Phosphorus 3.1, Albumin 2.0 L 08/16/19 06:57: POC Glucose 123 H Current Medications Acetaminophen (Tylenol) 1,000 mg PO Q8 [facility] Last Admin: 08/16/19 06:27 Dose: 1,000 mg Documented by: Amlodipine Besylate (Norvasc) 10 mg PO QHS [facility] Last Admin: 08/15/19 21:39 Dose: 10 mg Documented by: Atorvastatin Calcium (Lipitor) 40 mg PO QHS [facility] Last Admin: 08/15/19 21:39 Dose: 40 mg Documented by: Benzonatate (Tessalon Perle) 100 mg PO TID PRN PRN PRN Reason: COUGH Last Admin: 08/12/19 07:51 Dose: 100 mg Documented by: Bisacodyl (Dulcolax) 10 mg RECTAL .PRN X 1 PRN PRN Reason: Constipation Calamine/Phenol (Calmoseptine Ointment) 1 applic TOPICAL BID [facility]; Protocol Last Admin: 08/16/19 08:30 Dose: 1 applicatio Documented by: Cephalexin (Keflex) 500 mg PO Q12 [facility] Stop: 08/17/19 22:01 Last Admin: 08/16/19 08:26 Dose: 500 mg Documented by: Cholecalciferol (Vitamin D) 3,000 unit PO DAILY [facility] Last Admin: 08/16/19 08:27 Dose: 3,000 unit Documented by: Clonidine (Catapres) 0.1 mg PO Q8H PRN PRN PRN Reason: SBP>160 OR DBP>99 Last Admin: 08/04/19 06:13 Dose: 0.1 mg Documented by: Doxazosin Mesylate (Cardura) 1 mg PO HS [facility] Last Admin: 08/15/19 21:39 Dose: 1 mg Documented by: Dronabinol (Marinol) 2.5 mg PO BIDAC [facility] Last Admin: 08/16/19 06:27 Dose: 2.5 mg Documented by: Famotidine (Pepcid) 20 mg PO DAILY [facility] Last Admin: 08/16/19 08:27 Dose: 20 mg Documented by: Finasteride (Proscar) 5 mg PO DAILY [facility] Last Admin: 08/16/19 08:27 Dose: 5 mg Documented by: Glimepiride (Amaryl) 1 mg PO DAILY@0800 [facility] Last Admin: 08/16/19 08:27 Dose: 1 mg Documented by: Guaifenesin/Codeine Phosphate (Robitussin Ac) 10 ml PO Q6H PRN PRN PRN Reason: COUGH/CONGESTION Last Admin: 08/09/19 21:28 Dose: 10 ml Documented by: Heparin Sodium (Porcine) (Heparin Na) 5,000 unit SC Q12 [facility] Last Admin: 08/16/19 08:30 Dose: 5,000 unit Documented by: Hydralazine HCl (Apresoline) 100 mg PO TID [facility] Last Admin: 08/16/19 06:27 Dose: 100 mg Documented by: Levetiracetam (Keppra Tablet) 500 mg PO BID [facility] Last Admin: 08/16/19 08:26 Dose: 500 mg Documented by: Magnesium Hydroxide (Milk Of Magnesia) 30 ml PO .PRN X 1 PRN PRN Reason: Constipation Last Admin: 08/10/19 09:58 Dose: 30 ml Documented by: Melatonin (Melatonin) 3 mg PO QHS [facility] Last Admin: 08/15/19 21:39 Dose: 3 mg Documented by: Metoprolol Tartrate (Lopressor (Beta Laz)) 50 mg PO BID [facility] Last Admin: 08/16/19 08:29 Dose: 50 mg Documented by: Nystatin (Mycostatin Powder) 1 applic TOPICAL BID [facility]; Protocol Last Admin: 08/16/19 08:34 Dose: 1 applicatio Documented by: Ondansetron HCl (Zofran Odt) 4 mg PO Q8H PRN PRN PRN Reason: NAUSEA Last Admin: 08/13/19 11:07 Dose: 4 mg Documented by: Oxycodone HCl (Oxyir) 5 mg PO Q6H PRN PRN PRN Reason: Pain Last Admin: 08/04/19 13:59 Dose: 5 mg Documented by: Polyethylene Glycol (Miralax) 17 gm PO DAILY [facility] Last Admin: 08/16/19 08:28 Dose: Not Given Documented by: Senna/Docusate Sodium (Senokot-S, Crissy-Colace) 2 tablet PO BID [facility] Last Admin: 08/16/19 08:29 Dose: Not Given Documented by: Sertraline HCl (Zoloft) 50 mg PO DAILY [facility] Last Admin: 08/16/19 08:26 Dose: 50 mg Documented by: Sodium Chloride () 10 - 40 ml IV UD PRN PRN Reason: SALINE FLUSH Last Admin: 08/10/19 02:06 Dose: 10 ml Documented by: Tamsulosin HCl (Flomax) 0.4 mg PO BID [facility] Last Admin: 08/16/19 08:26 Dose: 0.4 mg Documented by: Medical Necessity - Tobacco Use Smoking Status: Former smoker Tobacco Use: Non-smoker Assessment/Plan All Active Problems (Last Reviewed 08/02/19 @ 07:57 by Radha Vega DO) Subdural hemorrhage (Acute) Subarachnoid hemorrhage (Acute) Intracerebral hemorrhage (Acute) Closed intraventricular hemorrhage (Acute) Cephalgia (Acute) KIMI (acute kidney injury) (Resolved) Benign soft tissue neoplasm (Resolved) Community acquired pneumonia (Resolved) Hyperglycemic crisis in diabetes mellitus (Resolved) Hypertensive crisis (Resolved) Vertigo (Resolved) Impressions 1. Debility due to Subdural hemorrhage, intracerebral hemorrhage, interventricular hemorrhage and subarachnoid hemorrhage sustained in a fall while on Warfarin. Confusion and LOC are improving. Better able to participate in conversations about his care and progress. He confabulates. He changes the subject when he can not answer a question. He does not want me to talk with his or son about level of function prior to fall. He apparently was not taking care of the finances and they are now in financial trouble.......and the electric in the power in the house has been turned off. I have asked the SW to schedule a meeting with his and/or son to get information on his prior level of function.....was he doing all the cooking and laundry etc? How has memory been. I am suspicious that he may have dementia. TSH recently normal and B12, JOSSELYN and RPR have been ordered for today. 2. cough - much better since the Cozaar was discontinued. Still with occasional cough....not always associated with eating. He is currently on regular textures and thin liquids per ST. 3. 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 He will need to follow up with a food service kitchen supervisor post DC. Creat is creeping up and he was reminded once again to keep his fluid intake up. The HCTZ has helped with the BP control however, his urine OP was exceeding his oral intake....edema is better. He has a large amount of proteinuria. The HCTZ was discontinued last week and the Creat is still creeping up. I&O I suspect are not accurate......I do not think the drinks his brings are always being recorded. 4. DM II - Blood sugars have been creeping up since the diet was changed to regular. Add AMaryl 1 mg daily.......blood sugars are controlled now 5. CAD with hx of CABG - stable, no CP 6. PVD 7. anemia due to blood loss - stable 8. recent UTI more likely than not related to urine retention. Seen by urology and started on Flomax at previous hospital. He is now on Flomax, Proscar and Cardura 1 mg at and the mason was removed on 08/13. He had to be straight cath'd twice over the weekend at night......he would not get up to go to the BR and is unable to urinate lying down.....when he stands at the toilet he is able to urinate. Will continue with post void residuals........want to make sure that the increase in the creat is not due t retention/obstructive uropathy. 9. 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 Depression - started on Sertraline last Friday with his permission. No adverse SE's reported. I reviewed a note from On Call Pharmacy Technician regarding starting him on an appetite stimulant. Since he will be staying because it is not safe for him to be home alone, he was started on Marinol 2.5 mg BID....will continue to monitor his intake. Start daily weights. 11. Orthostatic hypotension - asymptomatic .....no changes in the drug regimen for now Mild systolic HTN....recently increased the Hydralazine......will continue to monitor....no changes to the meds at this time. Code Visit Inpatient E&M: 66173 Subs Hosp L2
[2019-08-16 11:19] LABS: Absolute Lymphocyte Count 1.51 X10^3/uL (0.83-4.51); Absolute Neutrophil Count 5.8 X10^3/uL (2.0-7.7); Basophil# 0.05 X10^3/uL; Basophil% 0.6 % (0-1); Eosinophil# 0.39 X10^3/uL; Eosinophils% 4.6 % (0-5); Hematocrit 36.6 % (40-54); Hemoglobin 11.4 g/dL (13.0-16.5); Lymphocyte # 1.51 X10^3/ul (4.0); Lymphocyte % 17.9 % (19-41); Mean Corp Hgb Conc 31.1 g/dL (32-36); Mean Corpuscular Hgb 27.7 pg (27.0-32.0); Mean Corpuscular Volume 88.8 fL (80-94); Mean Platelet Vol. 9.8 fl (6.2-12.0); Monocyte% 7.1 % (0-10); NRBC Flagged by Analyzer 0 % (0-5); Neutrophil # 5.82 X10^3/uL (2.7-7.7); Neutrophil % 69.1 % (47-70); Platelet Count 217 K/mm3 (150-450); RBC Distribution Width CV 14.6 % (11.6-14.6); RBC Distribution Width SD 46.5 fl (35.1-43.9); Red Blood Count 4.12 M/mm3 (4.6-6.2); White Blood Count 8.4 K/mm3 (4.4-11.0)
[2019-08-16 12:20] LABS: Vitamin B12 569 pg/mL (211-911)
[2019-08-16 17:00] LABS: Bedside Glucose 141 mg/dL (70-110)
[2019-08-16] MEDS: amLODIPine 10 MG Tablet PO (20:20)
[2019-08-16] MEDS: Atorvastatin Calcium 40 MG Tablet PO (20:22)
[2019-08-16] MEDS: MELATONIN 3 MG TABLET PO (20:22)
[2019-08-16] MEDS: Doxazosin 1 MG Tablet PO (20:23)
[2019-08-17] VITALS (8 sets, daily range): BP systolic 126–144; BP diastolic 59–71; PULSE 64–70; RESP 16–18; TEMP 36.6; O2SAT 95–98
[2019-08-17 05:47] LABS: BUN 29 mg/dL (7-18); BUN/Creat Ratio 13.8 RATIO (10-20); Calcium,Total 7.6 mg/dL (8.5-10.1); Chloride 116 mmol/L (98-107); EST Glomerular Filtration Rate 33 mL/min (>60); Est Glom Filt Rate - Afr Amer 40 mL/min (>60); Estimated Creatinine Clearance 31.67 ml/min; Glucose 83 mg/dL (74-106); Phosphorus 4.1 mg/dL (2.5-4.9); Potassium 4.2 mmol/L (3.5-5.1); Sodium Level 146 mmol/L (136-145)
[2019-08-17] MEDS: hydrALAZINE 50 MG Tablet 100 MG PO ×3 (06:24→21:18)
[2019-08-17] MEDS: Acetaminophen 500 MG Tablet 1000 MG PO ×3 (06:24→21:16)
[2019-08-17 06:40] LABS: Bedside Glucose 84 mg/dL (70-110)
[2019-08-17] MEDS: Heparin Injection (Vial) 5,000 UNIT/ML VIAL 5000 UNIT SC ×2 (08:04→21:18)
[2019-08-17] MEDS: Glimepiride 1 MG Tablet PO (08:05)
[2019-08-17] MEDS: Sertraline 100 MG Tablet PO (08:05)
[2019-08-17] MEDS: Metoprolol Tartrate 50 MG Tablet PO ×2 (08:05→21:17)
[2019-08-17] MEDS: Tamsulosin HCl 0.4 MG Capsule PO ×2 (08:05→21:18)
[2019-08-17] MEDS: Cephalexin 500 MG Capsule PO ×2 (08:05→21:18)
[2019-08-17] MEDS: Famotidine 20 MG Tablet PO (08:05)
[2019-08-17] MEDS: Finasteride 5 MG Tablet PO (08:05)
[2019-08-17] MEDS: levETIRAcetam 500 MG Tablet PO ×2 (08:05→21:17)
[2019-08-17] MEDS: Dronabinol 2.5 MG Capsule PO ×2 (08:10→16:48)
[2019-08-17] MEDS: Menthol/Lanolin/Calamine/Znox 113 GM Tube 1 APPLIC TOPICAL ×2 (08:14→21:18)
[2019-08-17] MEDS: Nystatin Powder 15gm Bottle 1 APPLIC TOPICAL ×2 (08:16→21:17)
[2019-08-17 16:17] LABS: ANTINUCLEAR ANTIBODIES DIRECT Negative (Negative)
[2019-08-17 17:10] LABS: Bedside Glucose 139 mg/dL (70-110)
[2019-08-17] MEDS: amLODIPine 10 MG Tablet PO (21:16)
[2019-08-17] MEDS: MELATONIN 3 MG TABLET PO (21:17)
[2019-08-17] MEDS: Atorvastatin Calcium 40 MG Tablet PO (21:17)
[2019-08-17] MEDS: Doxazosin 1 MG Tablet PO (21:18)
[2019-08-18] VITALS (8 sets, daily range): BP systolic 132–151; BP diastolic 54–71; PULSE 71–84; RESP 16; TEMP 36.7–37; O2SAT 94
[2019-08-18] MEDS: hydrALAZINE 50 MG Tablet 100 MG PO ×3 (06:06→20:29)
[2019-08-18] MEDS: Acetaminophen 500 MG Tablet 1000 MG PO ×3 (06:07→20:31)
[2019-08-18 06:30] LABS: Bedside Glucose 84 mg/dL (70-110)
[2019-08-18] MEDS: Glimepiride 1 MG Tablet PO (08:23)
[2019-08-18] MEDS: Menthol/Lanolin/Calamine/Znox 113 GM Tube 1 APPLIC TOPICAL ×2 (08:25→20:29)
[2019-08-18] MEDS: Nystatin Powder 15gm Bottle 1 APPLIC TOPICAL ×2 (08:28→20:29)
[2019-08-18] MEDS: Dronabinol 2.5 MG Capsule PO ×2 (08:37→17:27)
[2019-08-18] MEDS: Sertraline 100 MG Tablet PO (08:50)
[2019-08-18] MEDS: Tamsulosin HCl 0.4 MG Capsule PO ×2 (08:50→20:30)
[2019-08-18] MEDS: levETIRAcetam 500 MG Tablet PO ×2 (08:50→20:30)
[2019-08-18] MEDS: Heparin Injection (Vial) 5,000 UNIT/ML VIAL 5000 UNIT SC ×2 (08:50→20:30)
[2019-08-18] MEDS: Famotidine 20 MG Tablet PO (08:50)
[2019-08-18] MEDS: Metoprolol Tartrate 50 MG Tablet PO ×2 (08:50→20:31)
[2019-08-18] MEDS: Finasteride 5 MG Tablet PO (08:50)
[2019-08-18 16:50] LABS: Bedside Glucose 145 mg/dL (70-110)
[2019-08-18 19:39] LABS: Rapid Plasmin Reagin (RPR) NONREACTIVE (NONREACTIVE)
[2019-08-18] MEDS: Atorvastatin Calcium 40 MG Tablet PO (20:30)
[2019-08-18] MEDS: Doxazosin 1 MG Tablet PO (20:30)
[2019-08-18] MEDS: MELATONIN 3 MG TABLET PO (20:31)
[2019-08-18] MEDS: amLODIPine 10 MG Tablet PO (20:31)
--- NOTE | 2019-08-18 20:55 | NURSING ---
upon hs medical receptionist biller and assessment, pt refused to get up for toileting and a shower. wanted to stay in his clothes as well. pt reminded that the dr would like him to be taking showers, agreed to take shower in am. pt drank 240 ml water with hs medical receptionist biller. will monitor for toileting needs and reinforce shower in am.
[2019-08-19] VITALS (7 sets, daily range): BP systolic 143–144; BP diastolic 61–70; PULSE 66–83; RESP 16–18; TEMP 36.6–36.7; O2SAT 95–96
--- NOTE | 2019-08-19 01:52 | NURSING ---
Reviewed anbd agree with ANNEALING OVEN OPERATOR documentation.
[2019-08-19] MEDS: hydrALAZINE 50 MG Tablet 100 MG PO ×3 (07:02→20:05)
[2019-08-19] MEDS: Acetaminophen 500 MG Tablet 1000 MG PO ×3 (07:03→20:08)
[2019-08-19 07:15] LABS: Bedside Glucose 132 mg/dL (70-110)
[2019-08-19] MEDS: levETIRAcetam 500 MG Tablet PO ×2 (08:38→20:07)
[2019-08-19] MEDS: Sertraline 100 MG Tablet PO (08:38)
[2019-08-19] MEDS: Tamsulosin HCl 0.4 MG Capsule PO ×2 (08:38→20:06)
[2019-08-19] MEDS: Finasteride 5 MG Tablet PO (08:38)
[2019-08-19] MEDS: Glimepiride 1 MG Tablet PO (08:38)
[2019-08-19] MEDS: Heparin Injection (Vial) 5,000 UNIT/ML VIAL 5000 UNIT SC ×2 (08:38→20:06)
[2019-08-19] MEDS: Dronabinol 2.5 MG Capsule PO ×2 (08:38→16:30)
[2019-08-19] MEDS: Senna/Docusate Sodium 1 Tablet 2 TABLET PO ×2 (08:38→20:08)
[2019-08-19] MEDS: Famotidine 20 MG Tablet PO (08:38)
[2019-08-19] MEDS: Metoprolol Tartrate 50 MG Tablet PO ×2 (08:40→20:07)
[2019-08-19] MEDS: Polyethylene Glycol 3350 17 GM PACKET PO (08:41)
[2019-08-19] MEDS: Nystatin Powder 15gm Bottle 1 APPLIC TOPICAL ×2 (09:44→20:07)
[2019-08-19] MEDS: Menthol/Lanolin/Calamine/Znox 113 GM Tube 1 APPLIC TOPICAL ×2 (09:44→20:06)
--- NOTE | 2019-08-19 11:48 | PCM.PN.BLA ---
Progress Note Afebile VSS -very mildly orthostatic today with regard to blood pressure. The heart rate increased from 71 lying down to 80 with standing. Maintaining appropriate oxygen saturation on RA Oral intake is erratic. Discussed with nursing - no problems that need addressed Reviewed the PT/OT notes and discussed with Alysia from OT who went through morning toileting and shower with the pt. He is not motivated to do anything today. He will perform the tasks but, require a lot of cuing on what to do. told Alysia that Kris has not done the cooking since he retired. She does not know what he does all day. He does drive but, she does not know where he goes. Medication list reviewed. BS's are in good control He is not motivated to do therapy today. He wants to lie in bed. He seems down in the dumps and can not tell me why he does not want to do therapy today. His was in the room when I was talking to him and he kept looking to her for answers. His has noticed that he has been losing weight. She tells me that he used to do most of the cooking but not since he retired. He also tells me that he cleans the house but his states no. She tells me that since he fell he has been talking to her and telling her that he saw a woman on the floor under the table on the day he fell. He does not recall falling. He also thought he saw his granddaughter in the corner of his room with a mask on and this is not true. Arouses easily, NAD, appears very tired Lungs - CTA Heart - RRR no gallop Abd - flat, NT, ND, normal BS's no peripheral edema Skin - no breakdown Impressions 1. Depression 2. debility due to intracerebral hemorrhage and TBI +/- severe depression. ? dementia 3. Inanition - on Marinol which increased appetite. The SW and I Met with and dtr today. Apparently his memory was good prior to the fall......did lynda fall and have a hemorrhage OR did he have and intracerebral bleed and then fall. Was picking up his grandchildren at school and remembered the times. thinks he has been depressed since he retired. He used to work 2-3 jobs to support his family and now there is not the same income and they have had a hard time making ends meet. He manages the finances and and has not paid the mortgage for a year. They have a bucket chucker now and are trying to save their house. He is getting signed up for medicaid. Has been meeting his friends for meals out. Does the laundry without fail. No difficulty with ambulating or with swallowing. was assured that Cha will help with the medicaid application. Brought up that since he has not been doing 3 hours af therapy and he is not safe to go home we need to start thinking about the next step. He is due for an update with the insurance company tomorrow. Total time caring for this pt and talking with family 50 minutes STROKE Vital Signs/Narrative: Vital Signs Temp Pulse Resp BP Pulse Ox 08/19/19 08:51 98 F 82 16 144/65 H 96 08/19/19 08:40 82 144/65 H Code Visit Inpatient E&M: 70038 Subs Hosp L3
[2019-08-19 16:21] LABS: Bedside Glucose 116 mg/dL (70-110)
--- NOTE | 2019-08-19 16:49 | CASEMGMT ---
Social Work SW and Physician met with patient's and daughter to discuss patient's current medical and rehabilitation status and DC plans. Physician thoroughly explained medical conditions: TBI, depression, Dementia, and recommending pt f/u with neurology for diagnostic testing after DC. Physician explained IDT recommending continued therapy at SNF, as pt is unsafe to return home alone at this time. Pt has severe safety awareness and cognitive deficits, and is not aware of deficits. Pt is struggling to remain motivated to complete therapy and to complete all 3 hours per day of therapy. Pt is requiring max cues for tasks, unable to problem solve. SW explained SNFs. Explained in depth about possible [employer] coverage in a SNF, Medicaid process and coverage for a SNF. Pt would need to have insurance coverage for a SNF, cannot pay privately. has not started Medicaid application at this time. SW provided [id number] list of what to gather for Medicaid to complete application for SW to submit Friday. Daughter very willing to assist with process. works and unable to schedule another time to work with SW to complete application, and she does not know patient's fiances. Provided assistance on resources to obtain needed information. Provided SNF list for dtr and to choose SNFs for referrals: [facility], [facility], [facility]. Explained insurance and availability for facilities, still wanted referrals. Referrals made to SNFs - will await outcome. overwhelmed with information and grieving loss of 's roles and independence, as well dealing with finances the patient had put-off for the last year. Provided emotional support and active listening. Physician and SW encouraged to seek counseling for self - provided support group and counseling resources. SW offered continued assistance with process. Explained insurance update 08/20, and continued stay is not guaranteed, but will request more time for therapy and discharge planning. and dtr very appreciative of time and meeting. Will continue to follow. Cha Donnelly, CALEB SANTOROW
[2019-08-19] MEDS: Doxazosin 1 MG Tablet PO (20:06)
[2019-08-19] MEDS: MELATONIN 3 MG TABLET PO (20:07)
[2019-08-19] MEDS: Atorvastatin Calcium 40 MG Tablet PO (20:07)
[2019-08-19] MEDS: amLODIPine 10 MG Tablet PO (20:08)
[2019-08-20] VITALS (7 sets, daily range): BP systolic 137–149; BP diastolic 61–73; PULSE 73–80; RESP 16–18; TEMP 36.7–36.9; O2SAT 93–95
--- NOTE | 2019-08-20 00:59 | NURSING ---
REVIEWED AND AGREE WITH OPHTHALMOLOGIST RETINA SPECIALIST'S FUNCTIONAL ASSESSMENT AND HANDOFF CHARTING.
--- NOTE | 2019-08-20 06:31 | NURSING ---
pt refusing hs toileting after multiple staff attempts. pt states he only pees in the morning. staff check and changed pt throughout the night with incontinence of bm and urine. pt asked to get up to toilet and again refuses. pt up with am care with ease. continent of urine. pt had episode of nausea and dizziness in bathroom while toileting with am care. vital signs stable and pt placed back into bed and denies further instances of nausea or dizziness. will continue to monitor. fluids encouraged with am and hs med pass.
[2019-08-20 06:45] LABS: Bedside Glucose 89 mg/dL (70-110)
[2019-08-20] MEDS: hydrALAZINE 50 MG Tablet 100 MG PO ×3 (06:48→20:51)
[2019-08-20] MEDS: Acetaminophen 500 MG Tablet 1000 MG PO ×3 (06:49→20:50)
[2019-08-20] MEDS: Heparin Injection (Vial) 5,000 UNIT/ML VIAL 5000 UNIT SC ×2 (08:07→20:50)
[2019-08-20] MEDS: Finasteride 5 MG Tablet PO (08:07)
[2019-08-20] MEDS: Tamsulosin HCl 0.4 MG Capsule PO ×2 (08:08→20:51)
[2019-08-20] MEDS: Famotidine 20 MG Tablet PO (08:08)
[2019-08-20] MEDS: Glimepiride 1 MG Tablet PO (08:08)
[2019-08-20] MEDS: levETIRAcetam 500 MG Tablet PO ×2 (08:08→20:51)
[2019-08-20] MEDS: Sertraline 100 MG Tablet PO (08:08)
[2019-08-20] MEDS: Metoprolol Tartrate 50 MG Tablet PO ×2 (08:08→20:51)
[2019-08-20] MEDS: Dronabinol 2.5 MG Capsule PO (08:12)
[2019-08-20] MEDS: Menthol/Lanolin/Calamine/Znox 113 GM Tube 1 APPLIC TOPICAL ×2 (08:16→20:59)
[2019-08-20] MEDS: Nystatin Powder 15gm Bottle 1 APPLIC TOPICAL ×2 (08:17→20:59)
--- NOTE | 2019-08-20 10:53 | CASEMGMT ---
Social Work Spoke with [facility] whom is out of network with insurance, cannot accept Medicaid, and does not have any availability. [facility] denied and does not have any availability. Spoke with [facility] and can accept pt - reiterated insurance update 08/20, possibly get approved more time then maybe DC next week - admissions assistance stated that was fine and they would submit for precert when pt was issued LCD. Will keep them updated. Cha Donnelly, WOOD GRAINER WATER RESOURCE ENGINEERING SPECIALIST
--- NOTE | 2019-08-20 11:00 | PCM.PN.BLA ---
Progress Note He has been more fatigued and sleepy the past few days. He was alert and pleasant with me this morning but could only do 50 minutes of therapy.....they will try again later. When I went back to see him in his room he was sleeping. I am thinking it may be the Marinol that is making him sleepy. I am going to discontinue the Marinol and start Megace. He seems to be less inclined to do therapy since the Marinol. Will reassess over the next few days. Will recheck the lab on Friday. Check a UA today. Alert, did therapy but fatigued easily Lungs - CTA Dry MM HRRR without MM or gallop abd - soft NT ND normal BS's no peripheral edema No rashes, skin is warm and dry BP adequately controlled. Impressions 1. Depression with lack of motivation and poor appetite. Seems worse the past few days. Will DC the Marinol and see if fatigue improves. Start Megace to stimulate appetite. 2. I reviewed the Nursing notes and he is not retaining. He finished a course of antibiotics for E. Coli UTI. Will check a UA today. STROKE Vital Signs/Narrative: Vital Signs Temp Pulse Resp BP Pulse Ox 08/20/19 08:35 98.1 F 78 18 146/72 H 93 08/20/19 08:08 78 146/72 H Code Visit Inpatient E&M: 68070 Subs Hosp L2
[2019-08-20 13:51] LABS: Mucous, Urine 0 SEEN /hpf (<or=2+); Red Blood Cells-Urine 0 SEEN /hpf (0-5)
[2019-08-20 13:57] LABS: Color, Urine Yellow (Yellow); Glucose, Dipstick 50 mg/dl (Normal); Ketone-Dipstick 5 mg/dl (Negative); Leukocyte Esterase-Dipstick 500 /ul (Negative); Nitrite-Dipstick Positive (Negative); Occult Blood-Urine Negative /ul (Negative); Protein-Dipstick 500 mg/dl (Negative); Urine Bilirubin Dipstick Negative (Negative); Urine Clarity Sl. Cloudy (Clear); Urine Urobilinogen Normal (Normal)
[2019-08-20 14:04] LABS: White Blood Cells >100 SEEN /hpf (0-5)
[2019-08-20 14:06] LABS: Squamous Epithelial Cells - UA 0-5 SEEN /hpf (0-5)
[2019-08-20 14:07] LABS: Amorphous Sediment 1+; Bacteria 1+ /hpf (None Seen)
[2019-08-20 17:30] LABS: Bedside Glucose 130 mg/dL (70-110)
[2019-08-20] MEDS: MELATONIN 3 MG TABLET PO (20:50)
[2019-08-20] MEDS: amLODIPine 10 MG Tablet PO (20:50)
[2019-08-20] MEDS: Doxazosin 1 MG Tablet PO (20:51)
[2019-08-20] MEDS: Atorvastatin Calcium 40 MG Tablet PO (20:51)
[2019-08-20] MEDS: Megestrol 40 MG Tablet PO (20:51)
[2019-08-21] VITALS (9 sets, daily range): BP systolic 120–146; BP diastolic 64–89; PULSE 72–83; RESP 18; TEMP 36.9–37.1; O2SAT 94
[2019-08-21] MEDS: hydrALAZINE 50 MG Tablet 100 MG PO ×3 (05:30→20:43)
[2019-08-21] MEDS: Acetaminophen 500 MG Tablet 1000 MG PO ×3 (05:31→20:40)
[2019-08-21 06:30] LABS: Bedside Glucose 75 mg/dL (70-110)
[2019-08-21] MEDS: Glimepiride 1 MG Tablet PO (07:43)
[2019-08-21] MEDS: Menthol/Lanolin/Calamine/Znox 113 GM Tube 1 APPLIC TOPICAL ×2 (07:44→20:43)
[2019-08-21] MEDS: Tamsulosin HCl 0.4 MG Capsule PO ×2 (07:45→20:42)
[2019-08-21] MEDS: Heparin Injection (Vial) 5,000 UNIT/ML VIAL 5000 UNIT SC ×2 (07:45→20:42)
[2019-08-21] MEDS: levETIRAcetam 500 MG Tablet PO ×2 (07:46→20:42)
[2019-08-21] MEDS: Metoprolol Tartrate 50 MG Tablet PO ×2 (07:46→20:41)
[2019-08-21] MEDS: Megestrol 40 MG Tablet PO ×2 (07:47→20:41)
[2019-08-21] MEDS: Nystatin Powder 15gm Bottle 1 APPLIC TOPICAL ×2 (07:47→20:41)
[2019-08-21] MEDS: Famotidine 20 MG Tablet PO (07:48)
[2019-08-21] MEDS: Finasteride 5 MG Tablet PO (07:49)
[2019-08-21] MEDS: Sertraline 100 MG Tablet PO (07:50)
--- NOTE | 2019-08-21 15:16 | PCM.PN.HOSP ---
Patient Problems: Active and Suspected Problems (Last Reviewed 08/02/19 @ 07:57 by Radha Vega DO) Subdural hemorrhage (Acute) 07/22/19 Subarachnoid hemorrhage (Acute) 07/22/19 Intracerebral hemorrhage (Acute) 07/22/19 Closed intraventricular hemorrhage (Acute) 07/22/19 Cephalgia (Acute) due to recent intracerebral hemorrhage Reason for Visit: rehab post SAH Subjective: Doing well. Eating well. Progressing well with therapy. Vitals/I&O's: Vital Signs Temp Pulse Resp BP Pulse Ox 37.1 C 74 18 143/64 H 94 08/21/19 07:36 08/21/19 14:08 08/21/19 14:07 08/21/19 14:08 08/21/19 07:36 Oxygen Flow Rate (L/min) 2 Oxygen Delivery Method Room Air Weight: 74.2 kg Body Mass Index (BMI) 29.0 Finger Stick Blood Glucose 480 Orthostatic Vital Signs Start: 07/30/19 06:49 Freq: Status: Active Protocol: Activity Type Activity Date Activity User E-Sign Co-Sign Detail Recorded Client Recorded Date Recorded By Document 08/18/19 14:57 PAULINE [id number] 08/18/19 15:03 PAULINE 08/18/19 14:57 Orthostatic Vitals Standing -Blood Pressure (90/60-120/80) 132/54 H -Extremity Use Right Arm -Pulse Rate (60-100) 80 Sitting -Blood Pressure (90/60-120/80) 140/67 H -Extremity Use Right Arm -Pulse Rate (60-100) 76 Lying -Blood Pressure (90/60-120/80) 148/71 H -Extremity Use Right Arm -Pulse Rate (60-100) 73 Intake and Output for Last 24 Hours 08/19/19 08/20/19 08/21/19 23:59 23:59 23:59 Intake Total 2160 / 2160 880 / 880 550 / 550 Output Total 700 / 700 850 / 850 600 / 600 Balance 1460 / 1460 30 / 30 -50 / -50 General: Alert, Cooperative, No apparent distress HEENT: Atraumatic, Normocephalic Oral: Moist Mucosa, No Gingival or Mucosal Lesions/ Ulcerations Neck: No Nodes, Trachea Midline Lungs: Clear to auscultation, Normal air movement, No rhonchi, No wheeze Cardiovascular: Regular rate, Regular Rhythm, Normal S1, Normal S2, No murmurs Abdomen: Bowel Sounds Present, Soft, Non Tender, Non-Distended, No Hepato-splenomegaly Extremities: No edema, No Calf Tenderness Skin: No rashes, No breakdown Neurological: Motor Exam 5/5 strength throughout Psych/Mental Status: Normal Affect, Appropriate Laboratory Results 08/20/19 16:58: POC Glucose 130 H 08/21/19 06:23: POC Glucose 75 Current Medications Acetaminophen (Tylenol) 1,000 mg PO Q8 [facility] Last Admin: 08/21/19 14:08 Dose: 1,000 mg Documented by: Amlodipine Besylate (Norvasc) 10 mg PO QHS [facility] Last Admin: 08/20/19 20:50 Dose: 10 mg Documented by: Atorvastatin Calcium (Lipitor) 40 mg PO QHS [facility] Last Admin: 08/20/19 20:51 Dose: 40 mg Documented by: Benzonatate (Tessalon Perle) 100 mg PO TID PRN PRN PRN Reason: COUGH Last Admin: 08/12/19 07:51 Dose: 100 mg Documented by: Bisacodyl (Dulcolax) 10 mg RECTAL .PRN X 1 PRN PRN Reason: Constipation Calamine/Phenol (Calmoseptine Ointment) 1 applic TOPICAL BID [facility]; Protocol Last Admin: 08/21/19 07:44 Dose: 1 applicatio Documented by: Cholecalciferol (Vitamin D) 3,000 unit PO DAILY [facility] Last Admin: 08/21/19 07:50 Dose: 3,000 unit Documented by: Clonidine (Catapres) 0.1 mg PO Q8H PRN PRN PRN Reason: SBP>160 OR DBP>99 Last Admin: 08/04/19 06:13 Dose: 0.1 mg Documented by: Doxazosin Mesylate (Cardura) 1 mg PO HS [facility] Last Admin: 08/20/19 20:51 Dose: 1 mg Documented by: Famotidine (Pepcid) 20 mg PO DAILY [facility] Last Admin: 08/21/19 07:48 Dose: 20 mg Documented by: Finasteride (Proscar) 5 mg PO DAILY [facility] Last Admin: 08/21/19 07:49 Dose: 5 mg Documented by: Heparin Sodium (Porcine) (Heparin Na) 5,000 unit SC Q12 [facility] Last Admin: 08/21/19 07:45 Dose: 5,000 unit Documented by: Hydralazine HCl (Apresoline) 100 mg PO TID [facility] Last Admin: 08/21/19 14:08 Dose: 100 mg Documented by: Levetiracetam (Keppra Tablet) 500 mg PO BID [facility] Last Admin: 08/21/19 07:46 Dose: 500 mg Documented by: Magnesium Hydroxide (Milk Of Magnesia) 30 ml PO .PRN X 1 PRN PRN Reason: Constipation Last Admin: 08/10/19 09:58 Dose: 30 ml Documented by: Megestrol Acetate (Megace) 40 mg PO BID [facility] Last Admin: 08/21/19 07:47 Dose: 40 mg Documented by: Melatonin (Melatonin) 3 mg PO QHS [facility] Last Admin: 08/20/19 20:50 Dose: 3 mg Documented by: Metoprolol Tartrate (Lopressor (Beta Laz)) 50 mg PO BID [facility] Last Admin: 08/21/19 07:46 Dose: 50 mg Documented by: Nystatin (Mycostatin Powder) 1 applic TOPICAL BID [facility]; Protocol Last Admin: 08/21/19 07:47 Dose: 1 applicatio Documented by: Ondansetron HCl (Zofran Odt) 4 mg PO Q8H PRN PRN PRN Reason: NAUSEA Last Admin: 08/13/19 11:07 Dose: 4 mg Documented by: Oxycodone HCl (Oxyir) 5 mg PO Q6H PRN PRN PRN Reason: Pain Last Admin: 08/04/19 13:59 Dose: 5 mg Documented by: Polyethylene Glycol (Miralax) 17 gm PO DAILY [facility] Last Admin: 08/21/19 07:54 Dose: Not Given Documented by: Senna/Docusate Sodium (Senokot-S, Crissy-Colace) 2 tablet PO BID [facility] Last Admin: 08/21/19 07:54 Dose: Not Given Documented by: Sertraline HCl (Zoloft) 100 mg PO DAILY [facility] Last Admin: 08/21/19 07:50 Dose: 100 mg Documented by: Sodium Chloride () 10 - 40 ml IV UD PRN PRN Reason: SALINE FLUSH Last Admin: 08/10/19 02:06 Dose: 10 ml Documented by: Tamsulosin HCl (Flomax) 0.4 mg PO BID [facility] Last Admin: 08/21/19 07:45 Dose: 0.4 mg Documented by: STROKE Vital Signs/Narrative: Vital Signs Pulse Resp BP 08/21/19 14:08 74 143/64 H 08/21/19 14:07 74 18 143/64 H Medical Necessity - Tobacco Use Smoking Status: Former smoker Tobacco Use: Non-smoker Assessment/Plan All Active Problems (Last Reviewed 08/02/19 @ 07:57 by Radha Vega DO) Subdural hemorrhage (Acute) Subarachnoid hemorrhage (Acute) Intracerebral hemorrhage (Acute) Closed intraventricular hemorrhage (Acute) Cephalgia (Acute) KIMI (acute kidney injury) (Resolved) Benign soft tissue neoplasm (Resolved) Community acquired pneumonia (Resolved) Hyperglycemic crisis in diabetes mellitus (Resolved) Hypertensive crisis (Resolved) Vertigo (Resolved) 1. SAH: progressing with therapy follow up with neurosurgery levetiracetam for szr proph 2. UTI: completed CTX UA abnormal, but asymptomatic follow up cultures, hold abx for now, but if manifests symptoms then will likely need to reevaluate and consider additional studies. 3. DM2-controlled 4. HTN improved continue amlodipine 10 daily, hydralazine 100 TID, metop tart 50 BID 5. VTE proph w heparin 6. Disposition: DW family. Patient does not have to go to a SNF upon discharge and could go home with [facility]. I told them we want him to go to a safe environment when he is finally discharged. Preferably, if family can be readily available, home would be fine. I told them that going to a SNF is not mandatory, but an option for those who qualify. Code Visit Inpatient E&M: 14996 Subs Hosp L2
[2019-08-21 17:15] LABS: Bedside Glucose 91 mg/dL (70-110)
[2019-08-21] MEDS: Senna/Docusate Sodium 1 Tablet 2 TABLET PO (20:40)
[2019-08-21] MEDS: amLODIPine 10 MG Tablet PO (20:40)
[2019-08-21] MEDS: MELATONIN 3 MG TABLET PO (20:41)
[2019-08-21] MEDS: Doxazosin 1 MG Tablet PO (20:42)
[2019-08-21] MEDS: Atorvastatin Calcium 40 MG Tablet PO (20:42)
[2019-08-22] VITALS (10 sets, daily range): BP systolic 134–159; BP diastolic 61–68; PULSE 71–85; RESP 16–20; TEMP 36.7–36.8; O2SAT 93
[2019-08-22] MEDS: Acetaminophen 500 MG Tablet 1000 MG PO ×2 (05:33→20:34)
[2019-08-22] MEDS: hydrALAZINE 50 MG Tablet 100 MG PO ×3 (05:33→20:37)
[2019-08-22 07:01] LABS: Bedside Glucose 109 mg/dL (70-110)
[2019-08-22] MEDS: Heparin Injection (Vial) 5,000 UNIT/ML VIAL 5000 UNIT SC ×2 (07:19→20:36)
[2019-08-22] MEDS: levETIRAcetam 500 MG Tablet PO ×2 (07:20→20:36)
[2019-08-22] MEDS: Metoprolol Tartrate 50 MG Tablet PO ×2 (07:20→20:35)
[2019-08-22] MEDS: Finasteride 5 MG Tablet PO (07:21)
[2019-08-22] MEDS: Tamsulosin HCl 0.4 MG Capsule PO ×2 (07:22→20:36)
[2019-08-22] MEDS: Megestrol 40 MG Tablet PO ×2 (07:22→20:35)
[2019-08-22] MEDS: Famotidine 20 MG Tablet PO (07:22)
[2019-08-22] MEDS: Sertraline 100 MG Tablet PO (07:23)
[2019-08-22] MEDS: Nystatin Powder 15gm Bottle 1 APPLIC TOPICAL ×2 (07:24→20:35)
[2019-08-22] MEDS: Menthol/Lanolin/Calamine/Znox 113 GM Tube 1 APPLIC TOPICAL ×2 (07:24→20:37)
--- NOTE | 2019-08-22 14:17 | PCM.HOSP.N ---
Hospitalist Note Urine culture positive for Pseudomonas. Sensitive to Cipro. Plan is to treat the patient for 3 days with 5 mg twice daily ciprofloxacin.
[2019-08-22] MEDS: Ciprofloxacin 500 MG Tablet PO ×2 (14:47→20:36)
[2019-08-22 17:30] LABS: Bedside Glucose 168 mg/dL (70-110)
[2019-08-22] MEDS: Senna/Docusate Sodium 1 Tablet 2 TABLET PO (20:34)
[2019-08-22] MEDS: amLODIPine 10 MG Tablet PO (20:35)
[2019-08-22] MEDS: MELATONIN 3 MG TABLET PO (20:35)
[2019-08-22] MEDS: Atorvastatin Calcium 40 MG Tablet PO (20:36)
[2019-08-22] MEDS: Doxazosin 1 MG Tablet PO (20:36)
[2019-08-23] VITALS (9 sets, daily range): BP systolic 135–154; BP diastolic 60–75; PULSE 70–84; RESP 16–17; TEMP 36.8–36.9; O2SAT 94–98
[2019-08-23 05:49] LABS: Absolute Neutrophil Count 13.4 X10^3/uL (2.0-7.7); Basophil# 0.03 X10^3/uL; Basophil% 0.2 % (0-1); Eosinophil# 0.28 X10^3/uL; Eosinophils% 1.7 % (0-5); Hematocrit 27.6 % (40-54); Hemoglobin 8.9 g/dL (13.0-16.5); Mean Corp Hgb Conc 32.2 g/dL (32-36); Mean Corpuscular Hgb 27.9 pg (27.0-32.0); Mean Corpuscular Volume 86.5 fL (80-94); Mean Platelet Vol. 9.7 fl (6.2-12.0); Monocyte# 1.44 X10^3/uL; Monocyte% 8.6 % (0-10); NRBC Flagged by Analyzer 0 % (0-5); Neutrophil # 13.35 X10^3/uL (2.7-7.7); Neutrophil % 79.7 % (47-70); Platelet Count 203 K/mm3 (150-450); RBC Distribution Width CV 15.2 % (11.6-14.6); RBC Distribution Width SD 47.8 fl (35.1-43.9); Red Blood Count 3.19 M/mm3 (4.6-6.2); White Blood Count 16.7 K/mm3 (4.4-11.0)
[2019-08-23 06:18] LABS: Anion Gap 6 (5-15); BUN 28 mg/dL (7-18); BUN/Creat Ratio 12.9 RATIO (10-20); Calcium,Total 7.8 mg/dL (8.5-10.1); Chloride 113 mmol/L (98-107); Creatinine, Serum 2.17 mg/dL (0.70-1.30); EST Glomerular Filtration Rate 32 mL/min (>60); Est Glom Filt Rate - Afr Amer 39 mL/min (>60); Estimated Creatinine Clearance 30.65 ml/min; Glucose 87 mg/dL (74-106); Phosphorus 3.9 mg/dL (2.5-4.9); Potassium 3.9 mmol/L (3.5-5.1); Sodium Level 142 mmol/L (136-145)
[2019-08-23] MEDS: Acetaminophen 500 MG Tablet 1000 MG PO ×3 (06:53→20:42)
[2019-08-23] MEDS: hydrALAZINE 50 MG Tablet 100 MG PO ×3 (06:54→20:36)
[2019-08-23 07:31] LABS: Bedside Glucose 92 mg/dL (70-110)
[2019-08-23] MEDS: Sertraline 100 MG Tablet PO (09:46)
[2019-08-23] MEDS: Polyethylene Glycol 3350 17 GM PACKET PO (09:46)
[2019-08-23] MEDS: levETIRAcetam 500 MG Tablet PO ×2 (09:46→20:39)
[2019-08-23] MEDS: Finasteride 5 MG Tablet PO (09:46)
[2019-08-23] MEDS: Senna/Docusate Sodium 1 Tablet 2 TABLET PO (09:46)
[2019-08-23] MEDS: Ciprofloxacin 500 MG Tablet PO ×2 (09:46→20:37)
[2019-08-23] MEDS: Metoprolol Tartrate 50 MG Tablet PO ×2 (09:46→20:40)
[2019-08-23] MEDS: Heparin Injection (Vial) 5,000 UNIT/ML VIAL 5000 UNIT SC ×2 (09:46→20:38)
[2019-08-23] MEDS: Tamsulosin HCl 0.4 MG Capsule PO ×2 (09:46→20:37)
[2019-08-23] MEDS: Megestrol 40 MG Tablet PO ×2 (09:47→20:40)
[2019-08-23] MEDS: Menthol/Lanolin/Calamine/Znox 113 GM Tube 1 APPLIC TOPICAL ×2 (09:51→20:36)
[2019-08-23] MEDS: Nystatin Powder 15gm Bottle 1 APPLIC TOPICAL ×2 (09:52→20:40)
[2019-08-23 10:05] LABS: Hematocrit 30.2 % (40-54); Hemoglobin 9.6 g/dL (13.0-16.5)
--- NOTE | 2019-08-23 10:30 | CASEMGMT ---
Social Work Spoke with physician whom would like pt to transfer to [facility] to manage depression prior to DC to SNF. Depression appears to be inhibiting pt from physical and medical recovery. Pt is very unmotivated with therapy at this time. Referral sent to [facility]. [facility] is able to accept pt and would to complete onsite. Spoke with patient's about insurance approval NRD 08/31 and possible [facility] psych admission. Educated to [facility] and pt's symptoms. is hesitant, but understands if this will benefit pt, she will agree. working and will visit pt after work to discuss. Notified physician. Will continue to follow. Cha Donnelly, CALEB SPOOLER OPERATOR
--- NOTE | 2019-08-23 10:38 | CASEMGMT ---
Social Work IDT met with patient for Team Meeting. Discussed patient's progress in therapy. Pt's motivation varies. Pt can walk from 20 ft to 165 ft with FWW with SBA. Trialed cane usage but pt is unsafe at this time. CGA transfers. Pt is set up for UE ADLS, min to mod for LE ADLS. ST is working with pt on cognition, poor attention, memory, numbers, telling time. Pt needs max cues for tasks. Explained insurance coverage - have not heard outcome from update 08/20. Will continue to follow. Cha Donnelly, SETTER AUTOMATIC SPINNING LATHE TIRE FABRIC IMPREGNATING RANGE TENDER
[2019-08-23] MEDS: Pantoprazole Sodium 40 MG Tablet PO (11:20)
--- NOTE | 2019-08-23 11:33 | PCM.PROGNOTE ---
Patient Problems: Active and Suspected Problems (Last Reviewed 08/02/19 @ 07:57 by Radha Vega DO) Subdural hemorrhage (Acute) 07/22/19 Subarachnoid hemorrhage (Acute) 07/22/19 Intracerebral hemorrhage (Acute) 07/22/19 Closed intraventricular hemorrhage (Acute) 07/22/19 Cephalgia (Acute) due to recent intracerebral hemorrhage Subjective: Kris was seen on TEAM rounds today. Afebile VSS the systolic is mildly increased at 149 but, the diastolic is 60 and he is on 4 different antihypertensives including amlodipine 10 mg nightly, Cardura 1 mg nightly, hydralazine 100 mg 3 times daily and metoprolol 50 mg p.o. twice daily and he is mildly orthostatic but, asymptomatic. Maintaining appropriate oxygen saturation on RA Oral intake is erratic. He tells me that he ate the best breakfast he has had since coming to rehab. Hashbrowns, omelet, 1/2 of a banana and a chocolate shake. He ate about 1/2 of the hashbrowns and the omelet Discussed with nursing - no problems that need addressed Reviewed the PT/OT/ST notes - still not motivated to do daily care but, he did allow someone to shave him today. He is doing better with PT today and I saw him walking in the [place] at a good pace with a cane. Still having problems with higher level cognitive function and planning. Medication list reviewed. All lab was personally reviewed. The white blood cell count is elevated at 16.7 today with 80% neutrophils. It has been normal in the past. Hemoglobin was reported as 8.9 and this is down from 12.1 at admission and 11.4 on 08/16/2019. Creatinine today is 2.17 with an estimated creatinine clearance of 30.65. Potassium is 3.9. Phosphorus and magnesium are within normal limits. Microbiology-greater than 100,000 colonies of pseudomonas aeruginosa which is sensitive to cefepime, ralph quinolones, gentamicin, Zosyn and imipenem. The urine culture grew Pseudomonas this time ( E. Coli the last time and this was appropriately treated). He was started on Cipro by Dr. Esteves. The post void residuals had improved and on a CT scan of the abd and the pelvis done in July there were no intrarenal calcifications. He does have prostatic calcifications. Denies pelvic pain, dysuria...he has had urine retention. Denies nausea but, appetite has been decreased. No flank pain. - Physical Exam Vitals/I&O's: Vital Signs Temp Pulse Resp BP Pulse Ox 98.3 F 74 16 149/60 H 94 08/23/19 07:07 08/23/19 09:46 08/23/19 07:07 08/23/19 09:46 08/23/19 07:07 Oxygen Flow Rate (L/min) 2 Oxygen Delivery Method Room Air Weight: 163 lb 12.855 oz Body Mass Index (BMI) 29.0 Finger Stick Blood Glucose 480 Orthostatic Vital Signs Start: 07/30/19 06:49 Freq: Status: Active Protocol: Activity Type Activity Date Activity User E-Sign Co-Sign Detail Recorded Client Recorded Date Recorded By Document 08/18/19 14:57 PAULINE [id number] 08/18/19 15:03 PAULINE 08/18/19 14:57 Orthostatic Vitals Standing -Blood Pressure (90/60-120/80 mm Hg) 132/54 H -Extremity Use Right Arm -Pulse Rate (60-100 beats/min) 80 Sitting -Blood Pressure (90/60-120/80 mm Hg) 140/67 H -Extremity Use Right Arm -Pulse Rate (60-100 beats/min) 76 Lying -Blood Pressure (90/60-120/80 mm Hg) 148/71 H -Extremity Use Right Arm -Pulse Rate (60-100 beats/min) 73 Intake and Output for Last 24 Hours 08/21/19 08/22/19 08/23/19 23:59 23:59 23:59 Intake Total 550 / 550 810 / 930 890 / 890 Output Total 600 / 700 700 / 700 50 / 50 Balance -50 / -150 110 / 230 840 / 840 General: Alert, Oriented x3, Cooperative, No apparent distress, - - Lying in bed when we entered his room. He is shaved an groomed. He is appropriate. HEENT: Atraumatic, PERRLA, EOMI, Normocephalic Oral: No Gingival or Mucosal Lesions/ Ulcerations, Dry Mucosa Neck: Supple, No Nodes, Trachea Midline Lungs: Clear to auscultation Cardiovascular: Regular rate, Regular Rhythm, Normal S1, Normal S2, No Gallop Abdomen: Bowel Sounds Present, Soft, Non Tender, Non-Distended, - - No guarding with palpation Extremities: No cyanosis, No edema, No Calf Tenderness Skin: No rashes, No breakdown Neurological: Cranial nerves II-XII grossly intact, Neuro grossly intact - except for loss of balance and cognitive dysfunction. He did have punctate areas of bleeding in the cerebellum at presentation to the ED on 07/22/19. He had N/V all night the night before he presented to the ED and a CASTLE.......I wonder if this was due to increased intracranial pressure from a bleed? I wonder if the bleed precipitated the falls? and not vice a versa.? Psych/Mental Status: Appropriate, Flat Affect - but a little better today than it has been Microbiology Past 72 Hours 08/20/19 13:40 Urine Catheter - Catheter Urine Culture - Final Pseudomonas aeroginosa Laboratory Results 08/22/19 17:19: POC Glucose 168 H 08/23/19 05:30: WBC 16.7 H, RBC 3.19 L, Hgb 8.9 L, Hct 27.6 L, MCV 86.5, MCH 27.9, MCHC 32.2, RDW Std Deviation 47.8 H, RDW Coeff of Arturo 15.2 H, Plt Count 203, MPV 9.7, Immature Gran % (Auto) 0.800, Neut % (Auto) 79.7 H, Lymph % (Auto) 9.0 L, Tyrrell % (Auto) 8.6, Eos % (Auto) 1.7, Baso % (Auto) 0.2, Absolute Neuts (auto) 13.4 H, Absolute Lymphs (auto) 1.50, Nucleated RBC % 0 08/23/19 05:30: Sodium 142, Potassium 3.9, Chloride 113 H, Carbon Dioxide 23.0, Anion Gap 6, BUN 28 H, Creatinine 2.17 H, Estim Creat Clear Calc 30.65, Est GFR (MDRD) Af Amer 39 L, Est GFR (MDRD) Non-Af 32 L, BUN/Creatinine Ratio 12.9, Glucose 87, Calcium 7.8 L, Phosphorus 3.9, Magnesium 2.0 08/23/19 06:35: POC Glucose 92 08/23/19 09:56: Hgb 9.6 L, Hct 30.2 L Current Medications Acetaminophen (Tylenol) 1,000 mg PO Q8 [facility] Last Admin: 08/23/19 06:53 Dose: 1,000 mg Documented by: Amlodipine Besylate (Norvasc) 10 mg PO QHS [facility] Last Admin: 08/22/19 20:35 Dose: 10 mg Documented by: Atorvastatin Calcium (Lipitor) 40 mg PO QHS [facility] Last Admin: 08/22/19 20:36 Dose: 40 mg Documented by: Benzonatate (Tessalon Perle) 100 mg PO TID PRN PRN PRN Reason: COUGH Last Admin: 08/12/19 07:51 Dose: 100 mg Documented by: Bisacodyl (Dulcolax) 10 mg RECTAL .PRN X 1 PRN PRN Reason: Constipation Calamine/Phenol (Calmoseptine Ointment) 1 applic TOPICAL BID [facility]; Protocol Last Admin: 08/23/19 09:51 Dose: 1 applicatio Documented by: Cholecalciferol (Vitamin D) 3,000 unit PO DAILY [facility] Last Admin: 08/23/19 09:46 Dose: 3,000 unit Documented by: Ciprofloxacin HCl (Cipro) 500 mg PO BID [facility] Stop: 08/31/19 22:01 Last Admin: 08/23/19 09:46 Dose: 500 mg Documented by: Clonidine (Catapres) 0.1 mg PO Q8H PRN PRN PRN Reason: SBP>160 OR DBP>99 Last Admin: 08/04/19 06:13 Dose: 0.1 mg Documented by: Doxazosin Mesylate (Cardura) 1 mg PO HS [facility] Last Admin: 08/22/19 20:36 Dose: 1 mg Documented by: Finasteride (Proscar) 5 mg PO DAILY [facility] Last Admin: 08/23/19 09:46 Dose: 5 mg Documented by: Heparin Sodium (Porcine) (Heparin Na) 5,000 unit SC Q12 [facility] Last Admin: 08/23/19 09:46 Dose: 5,000 unit Documented by: Hydralazine HCl (Apresoline) 100 mg PO TID [facility] Last Admin: 08/23/19 06:54 Dose: 100 mg Documented by: Levetiracetam (Keppra Tablet) 500 mg PO BID [facility] Last Admin: 08/23/19 09:46 Dose: 500 mg Documented by: Magnesium Hydroxide (Milk Of Magnesia) 30 ml PO .PRN X 1 PRN PRN Reason: Constipation Last Admin: 08/10/19 09:58 Dose: 30 ml Documented by: Megestrol Acetate (Megace) 40 mg PO BID [facility] Last Admin: 08/23/19 09:47 Dose: 40 mg Documented by: Melatonin (Melatonin) 3 mg PO QHS [facility] Last Admin: 08/22/19 20:35 Dose: 3 mg Documented by: Metoprolol Tartrate (Lopressor (Beta Laz)) 50 mg PO BID [facility] Last Admin: 08/23/19 09:46 Dose: 50 mg Documented by: Nystatin (Mycostatin Powder) 1 applic TOPICAL BID [facility]; Protocol Last Admin: 08/23/19 09:52 Dose: 1 applicatio Documented by: Ondansetron HCl (Zofran Odt) 4 mg PO Q8H PRN PRN PRN Reason: NAUSEA Last Admin: 08/13/19 11:07 Dose: 4 mg Documented by: Pantoprazole Sodium (Protonix) 40 mg PO DAILY [facility] Last Admin: 08/23/19 11:20 Dose: 40 mg Documented by: Polyethylene Glycol (Miralax) 17 gm PO DAILY [facility] Last Admin: 08/23/19 09:46 Dose: 17 gm Documented by: Senna/Docusate Sodium (Senokot-S, Crissy-Colace) 2 tablet PO BID [facility] Last Admin: 08/23/19 09:46 Dose: 2 tablet Documented by: Sertraline HCl (Zoloft) 100 mg PO DAILY [facility] Last Admin: 08/23/19 09:46 Dose: 100 mg Documented by: Sodium Chloride () 10 - 40 ml IV UD PRN PRN Reason: SALINE FLUSH Last Admin: 08/10/19 02:06 Dose: 10 ml Documented by: Tamsulosin HCl (Flomax) 0.4 mg PO BID [facility] Last Admin: 08/23/19 09:46 Dose: 0.4 mg Documented by: Medical Necessity - Tobacco Use Smoking Status: Former smoker Tobacco Use: Non-smoker Assessment/Plan All Active Problems (Last Reviewed 08/02/19 @ 07:57 by Radha Vega DO) Subdural hemorrhage (Acute) Subarachnoid hemorrhage (Acute) Intracerebral hemorrhage (Acute) Closed intraventricular hemorrhage (Acute) Cephalgia (Acute) KIMI (acute kidney injury) (Resolved) Benign soft tissue neoplasm (Resolved) Community acquired pneumonia (Resolved) Hyperglycemic crisis in diabetes mellitus (Resolved) Hypertensive crisis (Resolved) Vertigo (Resolved) Impressions 1. Debility due to Subdural hemorrhage, intracerebral hemorrhage, interventricular hemorrhage and subarachnoid hemorrhage sustained in a fall while on Warfarin? or did he have a bleed the night before that caused increased intracranial pressure that lead to the N/V/CASTLE? Confusion and LOC are improving. Better able to participate in conversations about his care and progress. Still having difficulty with higher levels of cognitive/executive function. Balance has improved and he is now using a cane to ambulate. 2. cough - much better since the Cozaar was discontinued. Still with occasional cough....not always associated with eating. He is currently on regular textures and thin liquids per ST. Lungs are CTA 3. 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 He will need to follow up with a director public post DC. Creat has varied between 2.10-2.48 depending on his oral intake/fluid intake. Creat clearance today is 30.65 but, if the Creat increases and the creat clearance drops below 30 will need to change the Cipro to 500 mg every 18 hours. 4. DM II - Blood sugars are on the low side and he is not currently on any medication to decrease blood sugars...he is also on a regular diet to promote better eating. He is doing better with meals today. I encouraged him to keep his water intake up so we could continue the Cipro at 500 mg BID. 5. CAD with hx of CABG - stable, no CP 6. PVD 7. anemia due to blood loss - was stable but, now the HGB Has dropped. DC the Famotidine and start Protonix 40 mg daily ( can not use more than this due to the renal failure. ) He has no nausea or abdominal pain and no black tarry stools. Will continue to monitor the HH and if it continues to drop he will likely need endoscopy. 8. recurrent complicated UTI's with different organisms. Has prostatic calcifications. No intrarenal stones. The urine residuals are now less than 200 on Proscar, Flomax and Cardura. He is growing > 100,000 colonies of Pseudomonas in the urine. He is on Cipro 500 mg BID and I increased the duration of treatment to 10 days BUT, I suspect he may have chronic prostatitis and if this is the case he would need 4-6 weeks of antibiotics. Will consult Dr. Lopez for his recommendations. Cipro is the only oral medication we have to treat this patient with but, He recently had intracerebral bleeding and may be at increased risk for seizure......isatu with a FQ that lowers the seizure threshold. I notidied nursing to monitor closely for seizure activity. Will institute seizure precautions. If the Creat CL drops to less than 30 will need to change the dosing to 500 mg Q 18 hours. Recheck a renal profile on Friday. 9. 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 Did he have cognitive dysfunction that originated with that CVA and he never completely recovered? 10. Depression - started on sertraline on 08/06/19 so we are almost at the 3 week stacey (18 days today) and I think we are starting to see some improvement. I am sure this is multifactorial. He has a dtr and a grandchild with Juniata's Chorea. He is no longer working. He had a stroke in August in the left parietal area and went home with PT/OT and no ST....he may have had the decrease in the cognitive function then and it was never recognized. This may be why he had so much difficulty with finances. Now he was in an acute hospital for a brain bleed - due to a fall OR did it happen before the falls and the falls happened because of a brain bleed? and now he is in rehab. He is in financial trouble and has to have a machine sign writer to help prevent him losing his house. 11. Orthostatic hypotension - asymptomatic .....no changes in the drug regimen for now Stool sent for hemoccult. Monitor the HH daily for a few days. Famotidine discontinued and started on Protonix 40 mg daily. If the HGB continues to decrease he will need to have endoscopy. Consult Dr. Lopez on his recommendations for suspected chronic prostatitis.......will he need 4-6 weeks of Cipro? If the creat cl drops to less than 30 will need to decrease the Cipro to 500 mg Q 18 hours. Continue the Sertraline at 100 mg daily.......He may start to improve due to this and to the treatment of complicated UTI/chronic prostatitis. If he does not improve with regard to motivation and performance with therapy would consider an admission to a geropsych unit to evaluate the adequacy of tx of depression prior to going to a a SNF. Recheck renal profile Fri and daily X 3 Start Lisinopril 5 mg daily and DC the Cardura Monitor for seizure activity Code Visit Inpatient E&M: 95180 Subs Hosp L3
[2019-08-23] MEDS: Lisinopril 5 MG Tablet PO (13:24)
[2019-08-23 13:37] LABS: Ferritin 393 ng/mL (26-388); Iron 14 ug/dL (65-175); Iron Binding Capacity,Total 146 ug/dL (250-450); PERCENT IRON SATURATION 9.6 % (15.0-55.0)
[2019-08-23 17:01] LABS: Bedside Glucose 157 mg/dL (70-110)
[2019-08-23] MEDS: MELATONIN 3 MG TABLET PO (20:40)
[2019-08-23] MEDS: Atorvastatin Calcium 40 MG Tablet PO (20:40)
[2019-08-23] MEDS: amLODIPine 10 MG Tablet PO (20:41)
[2019-08-24] VITALS (9 sets, daily range): BP systolic 137–147; BP diastolic 62–70; PULSE 73–80; RESP 17–18; TEMP 36.7–36.8; O2SAT 93–94
[2019-08-24] MEDS: Acetaminophen 500 MG Tablet 1000 MG PO ×3 (05:28→21:04)
[2019-08-24] MEDS: hydrALAZINE 50 MG Tablet 100 MG PO ×3 (05:28→21:03)
[2019-08-24 06:38] LABS: Hemoglobin 9.5 g/dL (13.0-16.5)
[2019-08-24 07:06] LABS: Bedside Glucose 103 mg/dL (70-110)
[2019-08-24] MEDS: Nystatin Powder 15gm Bottle 1 APPLIC TOPICAL ×2 (08:04→21:05)
[2019-08-24] MEDS: Menthol/Lanolin/Calamine/Znox 113 GM Tube 1 APPLIC TOPICAL ×2 (08:05→21:02)
[2019-08-24] MEDS: Heparin Injection (Vial) 5,000 UNIT/ML VIAL 5000 UNIT SC ×2 (08:07→21:03)
[2019-08-24] MEDS: Pantoprazole Sodium 40 MG Tablet PO (08:07)
[2019-08-24] MEDS: Sertraline 100 MG Tablet PO (08:07)
[2019-08-24] MEDS: Lisinopril 5 MG Tablet PO (08:07)
[2019-08-24] MEDS: Tamsulosin HCl 0.4 MG Capsule PO ×2 (08:07→21:03)
[2019-08-24] MEDS: Finasteride 5 MG Tablet PO (08:08)
[2019-08-24] MEDS: Megestrol 40 MG Tablet PO ×2 (08:08→21:04)
[2019-08-24] MEDS: Ciprofloxacin 500 MG Tablet PO ×2 (09:59→21:03)
[2019-08-24] MEDS: Metoprolol Tartrate 50 MG Tablet PO ×2 (10:00→21:04)
[2019-08-24] MEDS: levETIRAcetam 500 MG Tablet PO ×2 (10:00→21:03)
--- NOTE | 2019-08-24 10:53 | CASEMGMT ---
Social Work Spoke with physician on [facility] admission - pt is not medically stable at this time to transfer. Labs/consults ordered. Physician reported antidepressant appears to be assisting pt more though, and pt ate meals, per nursing. To put [facility] psych admission on hold. Notified and [facility]. Will continue to follow. Cha Donnelly, CALEB MAILROOM MANAGER
[2019-08-24 17:30] LABS: Bedside Glucose 152 mg/dL (70-110)
[2019-08-24] MEDS: Atorvastatin Calcium 40 MG Tablet PO (21:04)
[2019-08-24] MEDS: Senna/Docusate Sodium 1 Tablet 2 TABLET PO (21:05)
[2019-08-24] MEDS: MELATONIN 3 MG TABLET PO (21:05)
[2019-08-24] MEDS: amLODIPine 10 MG Tablet PO (21:05)
[2019-08-25] VITALS (7 sets, daily range): BP systolic 128–148; BP diastolic 64–79; PULSE 68–76; RESP 17–18; TEMP 36.6–36.8; O2SAT 95
[2019-08-25] MEDS: hydrALAZINE 50 MG Tablet 100 MG PO ×3 (05:05→20:13)
[2019-08-25] MEDS: Acetaminophen 500 MG Tablet 1000 MG PO ×3 (05:06→20:17)
[2019-08-25 05:53] LABS: Hematocrit 28.3 % (40-54); Hemoglobin 8.8 g/dL (13.0-16.5)
[2019-08-25 07:00] LABS: Bedside Glucose 113 mg/dL (70-110)
[2019-08-25 07:29] LABS: Albumin, Serum 1.8 g/dL (3.2-5.0); BUN 33 mg/dL (7-18); BUN/Creat Ratio 14.3 RATIO (10-20); Calcium,Total 8.2 mg/dL (8.5-10.1); Chloride 116 mmol/L (98-107); EST Glomerular Filtration Rate 30 mL/min (>60); Est Glom Filt Rate - Afr Amer 36 mL/min (>60); Estimated Creatinine Clearance 28.91 ml/min; Glucose 110 mg/dL (74-106); Phosphorus 3.9 mg/dL (2.5-4.9); Potassium 4.4 mmol/L (3.5-5.1); Sodium Level 145 mmol/L (136-145)
[2019-08-25] MEDS: Megestrol 40 MG Tablet PO ×2 (08:04→20:16)
[2019-08-25] MEDS: Pantoprazole Sodium 40 MG Tablet PO (08:04)
[2019-08-25] MEDS: Heparin Injection (Vial) 5,000 UNIT/ML VIAL 5000 UNIT SC ×2 (08:04→20:14)
[2019-08-25] MEDS: Sertraline 100 MG Tablet PO (08:05)
[2019-08-25] MEDS: Finasteride 5 MG Tablet PO (08:05)
[2019-08-25] MEDS: Lisinopril 5 MG Tablet PO (08:05)
[2019-08-25] MEDS: Metoprolol Tartrate 50 MG Tablet PO ×2 (08:05→20:15)
[2019-08-25] MEDS: Ciprofloxacin 500 MG Tablet PO ×2 (08:06→20:14)
[2019-08-25] MEDS: Tamsulosin HCl 0.4 MG Capsule PO ×2 (08:06→20:14)
[2019-08-25] MEDS: levETIRAcetam 500 MG Tablet PO ×2 (08:06→20:15)
[2019-08-25] MEDS: Menthol/Lanolin/Calamine/Znox 113 GM Tube 1 APPLIC TOPICAL ×2 (10:39→20:13)
[2019-08-25] MEDS: Nystatin Powder 15gm Bottle 1 APPLIC TOPICAL ×2 (10:39→20:14)
[2019-08-25] MEDS: Sucralfate 1 GM Tablet PO ×3 (11:16→20:14)
--- NOTE | 2019-08-25 11:56 | CASEMGMT ---
Social Work Spoke with physician whom is reporting to have significantly improved, medically, physically, and mentally. The goal is pt to still DC home. No longer recommending [facility] psych. Spoke with [facility]. [facility] inquiring about POA paperwork - pt does not have any and cognition status is questionable at this time. [facility] stated without POA and pt being willing to transfer, pt is unable to admit. Notified [facility] of above. Notified . Will continue to follow and ReTeam next week. Cha Donnelly, VEGETABLE TESTER WATERWORKS SUPERVISOR
[2019-08-25 16:15] LABS: Bedside Glucose 154 mg/dL (70-110)
[2019-08-25] MEDS: Atorvastatin Calcium 40 MG Tablet PO (20:15)
[2019-08-25] MEDS: MELATONIN 3 MG TABLET PO (20:16)
[2019-08-25] MEDS: amLODIPine 10 MG Tablet PO (20:16)
[2019-08-26] VITALS (7 sets, daily range): BP systolic 121–159; BP diastolic 53–69; PULSE 68–73; RESP 16; TEMP 37.1; O2SAT 96–98
[2019-08-26] MEDS: Acetaminophen 500 MG Tablet 1000 MG PO ×3 (05:53→21:31)
[2019-08-26] MEDS: hydrALAZINE 50 MG Tablet 100 MG PO ×3 (05:53→21:28)
[2019-08-26 05:58] LABS: Hematocrit 29.8 % (40-54); Hemoglobin 9.3 g/dL (13.0-16.5)
[2019-08-26] MEDS: Sucralfate 1 GM Tablet PO ×4 (06:50→21:29)
[2019-08-26] MEDS: Menthol/Lanolin/Calamine/Znox 113 GM Tube 1 APPLIC TOPICAL ×2 (09:05→21:29)
[2019-08-26] MEDS: levETIRAcetam 500 MG Tablet PO ×2 (09:19→21:29)
[2019-08-26] MEDS: Sertraline 100 MG Tablet PO (09:19)
[2019-08-26] MEDS: Tamsulosin HCl 0.4 MG Capsule PO ×2 (09:19→21:29)
[2019-08-26] MEDS: Pantoprazole Sodium 40 MG Tablet PO (09:19)
[2019-08-26] MEDS: Ciprofloxacin 500 MG Tablet PO ×2 (09:19→21:29)
[2019-08-26] MEDS: Metoprolol Tartrate 50 MG Tablet PO ×2 (09:19→21:30)
[2019-08-26] MEDS: Finasteride 5 MG Tablet PO (09:19)
[2019-08-26] MEDS: Lisinopril 5 MG Tablet PO (09:20)
[2019-08-26] MEDS: Megestrol 40 MG Tablet PO ×2 (09:20→21:30)
[2019-08-26] MEDS: Heparin Injection (Vial) 5,000 UNIT/ML VIAL 5000 UNIT SC ×2 (09:20→21:29)
[2019-08-26] MEDS: Nystatin Powder 15gm Bottle 1 APPLIC TOPICAL ×2 (09:43→21:30)
--- NOTE | 2019-08-26 13:46 | PN_ITS ---
Progress Note Day #5 Cipro Afebile VSS-systolic blood pressure is mildly elevated - -lisinopril 5 mg daily was just added yesterday. Will continue to monitor BP and also the potassium. Maintaining appropriate oxygen saturation on RA Oral intake is much improved. His oral intake on 08/25/2019 was 1680 cc. Discussed with nursing - no problems that need addressed. He is still incontinent of urine at times. No significant post void residuals Reviewed the PT/OT/ST notes Medication list reviewed. The HGB is stable at 9.3. Blood sugars are well controlled with diet alone. No hypoglycemia. Marked improvement in his mood this week and his participation with therapy. He denies nausea, abdominal pain. Also denies dysuria, frequency of urination, flank pain. Alert, oriented x3, no apparent distress, pleasant and conversant Mucous membranes are moist Lungs-clear to auscultation Heart-regular rate and rhythm, no gallop Abdomen-soft, nontender, nondistended No peripheral edema Impressions 1. 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 Complicated urinary tract infections secondary to BPH with urine retention- asymptomatic at this time, continue Cipro 3. Orthostatic hypotension-very mild now and the patient is asymptomatic. Continue therapy Recheck a UA and urine culture a few days after Cipro is discontinued Code Visit Inpatient E&M: 78088 Subs Hosp L2
[2019-08-26 17:16] LABS: Bedside Glucose 139 mg/dL (70-110)
[2019-08-26] MEDS: amLODIPine 10 MG Tablet PO (21:30)
[2019-08-26] MEDS: MELATONIN 3 MG TABLET PO (21:30)
[2019-08-26] MEDS: Atorvastatin Calcium 40 MG Tablet PO (21:30)
[2019-08-27] VITALS (7 sets, daily range): BP systolic 133–143; BP diastolic 64–76; PULSE 65–78; RESP 16; TEMP 36.8–36.9; O2SAT 95–98
[2019-08-27 05:54] LABS: Hematocrit 29.9 % (40-54); Hemoglobin 9.4 g/dL (13.0-16.5)
[2019-08-27] MEDS: Sucralfate 1 GM Tablet PO ×4 (06:06→20:15)
[2019-08-27] MEDS: Acetaminophen 500 MG Tablet 1000 MG PO ×3 (06:06→20:18)
[2019-08-27] MEDS: hydrALAZINE 50 MG Tablet 100 MG PO ×3 (06:06→20:15)
[2019-08-27 06:21] LABS: Bedside Glucose 120 mg/dL (70-110)
[2019-08-27] MEDS: Heparin Injection (Vial) 5,000 UNIT/ML VIAL 5000 UNIT SC (11:05)
[2019-08-27] MEDS: Metoprolol Tartrate 50 MG Tablet PO ×2 (11:06→20:17)
[2019-08-27] MEDS: Megestrol 40 MG Tablet PO ×2 (11:06→20:17)
[2019-08-27] MEDS: Lisinopril 5 MG Tablet PO (11:06)
[2019-08-27] MEDS: Tamsulosin HCl 0.4 MG Capsule PO ×2 (11:06→20:17)
[2019-08-27] MEDS: Sertraline 100 MG Tablet PO (11:06)
[2019-08-27] MEDS: Finasteride 5 MG Tablet PO (11:06)
[2019-08-27] MEDS: Pantoprazole Sodium 40 MG Tablet PO (11:06)
[2019-08-27] MEDS: Ciprofloxacin 500 MG Tablet PO ×2 (11:06→20:16)
[2019-08-27] MEDS: levETIRAcetam 500 MG Tablet PO ×2 (11:06→20:17)
[2019-08-27] MEDS: Nystatin Powder 15gm Bottle 1 APPLIC TOPICAL ×2 (11:22→20:17)
[2019-08-27] MEDS: Menthol/Lanolin/Calamine/Znox 113 GM Tube 1 APPLIC TOPICAL ×2 (11:22→20:16)
--- NOTE | 2019-08-27 13:26 | PCM.PN.BLA ---
Progress Note Day #6 Cipro Afebile VSS - BP is better. Current BP is 143/64. Was started on Lisinopril on 08/23 Maintaining appropriate oxygen saturation on RA Oral intake is erratic, but better than it was at admission....he eats 100% 0f the fast food his brings in a night. Discussed with nursing - no problems that need addressed Reviewed the PT/OT/ST notes Medication list reviewed. Blood sugar record was reviewed. All blood sugars are less than 160 on diet alone. No hypoglycemia Hemoglobin is stable at 9.4. Heme + stool on Protonix and Sucralfate now. Creatinine and BUN are stable at 2.31 and 32 respectively. Serum bicarb is mildly decreased at 19 today. Calcium corrected for hypoalbuminemia is within normal limits. Potassium is stable at 4.5 even with the initiation of lisinopril. Denies CP, SOB, palpitations, nausea, constipation, abdominal pain. He is sleeping well. No longer needing encouragement to do therapy and is improving. Alert, oriented X 3, appropriate and joking with me Lungs - CTA, no cough Heart RRR, no gallop abd - soft, NT, ND, normal BS's in all 4 quadrants n peripheral edema no rashes no calf pain. Impressions 1. ICH/SAH/subdural hemorrhage due to a fall? or did he have a hemorragic CVA and then fell? He had CASTLE and N/V the night prior to the fall - possibly due to ICH? 2. Depression - much improved with sertraline. Will continue at ID. 3. BP - much better....continue the Lisinopril and recheck BMP/K on Friday 4. GI bleed with anemia - now stable on Protonix and Carafate. 5. Stage 3 CRF - borderline stage 4 at times. Watch the potassium closely on Lisinopril 6. DM II - well controlled on no medication Continue therapy Recheck the lab on Friday. Continue to monitor the BP - he was tilt negative after the doxazosin was discontinued not retaining any longer - continue the Flomax and the Proscar STROKE Vital Signs/Narrative: Vital Signs Pulse 08/27/19 13:17 66 08/27/19 11:06 78 Code Visit Inpatient E&M: 59925 Subs Hosp L2
[2019-08-27 14:09] LABS: Anion Gap 7 (5-15); BUN 32 mg/dL (7-18); BUN/Creat Ratio 13.9 RATIO (10-20); Chloride 118 mmol/L (98-107); Creatinine, Serum 2.31 mg/dL (0.70-1.30); EST Glomerular Filtration Rate 30 mL/min (>60); Est Glom Filt Rate - Afr Amer 36 mL/min (>60); Estimated Creatinine Clearance 28.79 ml/min; Glucose 125 mg/dL (74-106); Potassium 4.5 mmol/L (3.5-5.1); Sodium Level 144 mmol/L (136-145)
[2019-08-27 16:51] LABS: Bedside Glucose 109 mg/dL (70-110)
[2019-08-27] MEDS: MELATONIN 3 MG TABLET PO (20:17)
[2019-08-27] MEDS: Atorvastatin Calcium 40 MG Tablet PO (20:17)
[2019-08-27] MEDS: amLODIPine 10 MG Tablet PO (20:18)
[2019-08-28] VITALS (7 sets, daily range): BP systolic 140–149; BP diastolic 63–70; PULSE 68–74; RESP 16–20; TEMP 36.6–36.9; O2SAT 97–98
--- NOTE | 2019-08-28 03:30 | NURSING ---
REVIEWED AND AGREE WITH LABOR RELATIONS MANAGER'S FUNCTIONAL ASSESSMENT AND HANDOFF CHARTING.
[2019-08-28] MEDS: Acetaminophen 500 MG Tablet 1000 MG PO ×3 (05:36→20:17)
[2019-08-28] MEDS: hydrALAZINE 50 MG Tablet 100 MG PO ×3 (05:36→20:20)
[2019-08-28 06:40] LABS: Bedside Glucose 102 mg/dL (70-110)
[2019-08-28] MEDS: Sucralfate 1 GM Tablet PO ×4 (08:15→20:21)
[2019-08-28] MEDS: Tamsulosin HCl 0.4 MG Capsule PO ×2 (09:43→20:21)
[2019-08-28] MEDS: Metoprolol Tartrate 50 MG Tablet PO ×2 (09:43→20:22)
[2019-08-28] MEDS: levETIRAcetam 500 MG Tablet PO ×2 (09:43→20:21)
[2019-08-28] MEDS: Megestrol 40 MG Tablet PO ×2 (09:44→20:22)
[2019-08-28] MEDS: Pantoprazole Sodium 40 MG Tablet PO (09:45)
[2019-08-28] MEDS: Ciprofloxacin 500 MG Tablet PO ×2 (09:46→20:21)
[2019-08-28] MEDS: Finasteride 5 MG Tablet PO (09:47)
[2019-08-28] MEDS: Lisinopril 5 MG Tablet PO (09:48)
[2019-08-28] MEDS: Sertraline 100 MG Tablet PO (09:48)
[2019-08-28] MEDS: Menthol/Lanolin/Calamine/Znox 113 GM Tube 1 APPLIC TOPICAL ×2 (09:49→20:19)
[2019-08-28] MEDS: Nystatin Powder 15gm Bottle 1 APPLIC TOPICAL ×2 (09:50→20:18)
[2019-08-28 16:50] LABS: Bedside Glucose 168 mg/dL (70-110)
[2019-08-28] MEDS: MELATONIN 3 MG TABLET PO (20:17)
[2019-08-28] MEDS: Senna/Docusate Sodium 1 Tablet 2 TABLET PO (20:18)
[2019-08-28] MEDS: amLODIPine 10 MG Tablet PO (20:18)
[2019-08-28] MEDS: Atorvastatin Calcium 40 MG Tablet PO (20:22)
[2019-08-29] VITALS (7 sets, daily range): BP systolic 145–152; BP diastolic 65–70; PULSE 61–70; RESP 16; TEMP 36.7–36.9; O2SAT 97–98
[2019-08-29] MEDS: hydrALAZINE 50 MG Tablet 100 MG PO ×3 (05:45→20:09)
[2019-08-29] MEDS: Acetaminophen 500 MG Tablet 1000 MG PO ×3 (05:49→20:06)
[2019-08-29 06:50] LABS: Bedside Glucose 113 mg/dL (70-110)
[2019-08-29] MEDS: Sucralfate 1 GM Tablet PO ×4 (07:36→20:09)
[2019-08-29] MEDS: Menthol/Lanolin/Calamine/Znox 113 GM Tube 1 APPLIC TOPICAL ×2 (07:48→20:11)
[2019-08-29] MEDS: Tamsulosin HCl 0.4 MG Capsule PO ×2 (07:49→20:09)
[2019-08-29] MEDS: Metoprolol Tartrate 50 MG Tablet PO ×2 (07:49→20:08)
[2019-08-29] MEDS: Pantoprazole Sodium 40 MG Tablet PO (07:53)
[2019-08-29] MEDS: Megestrol 40 MG Tablet PO ×2 (07:54→20:07)
[2019-08-29] MEDS: Sertraline 100 MG Tablet PO (07:54)
[2019-08-29] MEDS: Lisinopril 5 MG Tablet PO (07:54)
[2019-08-29] MEDS: Finasteride 5 MG Tablet PO (07:56)
[2019-08-29] MEDS: levETIRAcetam 500 MG Tablet PO ×2 (09:28→20:08)
[2019-08-29] MEDS: Nystatin Powder 15gm Bottle 1 APPLIC TOPICAL ×2 (09:28→20:12)
[2019-08-29] MEDS: Ciprofloxacin 500 MG Tablet PO ×2 (09:28→20:09)
--- NOTE | 2019-08-29 16:47 | PCM.PN.HOSP ---
Patient Problems: Active and Suspected Problems (Last Reviewed 08/02/19 @ 07:57 by Radha Vega DO) Subdural hemorrhage (Acute) 07/22/19 Subarachnoid hemorrhage (Acute) 07/22/19 Intracerebral hemorrhage (Acute) 07/22/19 Closed intraventricular hemorrhage (Acute) 07/22/19 Cephalgia (Acute) due to recent intracerebral hemorrhage Reason for Visit: Patient was admitted with intracranial hemorrhage/SAH, subdural hemorrhage secondary to fall. Patient follows command. Patient is verbal. Vitals/I&O's: Vital Signs Temp Pulse Resp BP Pulse Ox 98.1 F 70 16 152/65 H 98 08/29/19 10:00 08/29/19 15:04 08/29/19 10:00 08/29/19 10:00 08/29/19 10:00 Oxygen Flow Rate (L/min) 2 Oxygen Delivery Method Room Air Weight: 168 lb 6.931 oz Body Mass Index (BMI) 29.0 Finger Stick Blood Glucose 480 Intake and Output for Last 24 Hours 08/27/19 08/28/19 08/29/19 23:59 23:59 23:59 Intake Total 1080 / 1080 1660 / 1660 1760 / 1760 Output Total 1400 / 1400 1850 / 1850 1600 / 1600 Balance -320 / -320 -190 / -190 160 / 160 General: Alert, Oriented x3, Cooperative HEENT: Atraumatic, PERRLA, EOMI, Normocephalic Neck: Supple, No JVD, Negative Carotid Bruits Lungs: Clear to auscultation, Normal air movement, No rhonchi, No wheeze, No rales Cardiovascular: Regular rate, Regular Rhythm, Normal S1, No murmurs Abdomen: Bowel Sounds Present, Soft, Non Tender, Non-Distended Extremities: No edema, Capillary Refill Less than 3 Seconds Skin: No rashes, No breakdown Musculoskeletal: No Tenderness to Palpation of Joints or Extremities, Arthritic Changes Neurological: Cranial nerves II-XII grossly intact, Deep Tendon Reflexes 2+/4 and Symmetrical, - - Muscle strength is 5/5 at major joints. Verbally speech good. Psych/Mental Status: Normal Affect, Appropriate Laboratory Results 08/28/19 16:44: POC Glucose 168 H 08/29/19 06:44: POC Glucose 113 H Current Medications Acetaminophen (Tylenol) 1,000 mg PO Q8 [facility] Last Admin: 08/29/19 15:04 Dose: 1,000 mg Documented by: Amlodipine Besylate (Norvasc) 10 mg PO QHS [facility] Last Admin: 08/28/19 20:18 Dose: 10 mg Documented by: Atorvastatin Calcium (Lipitor) 40 mg PO QHS [facility] Last Admin: 08/28/19 20:22 Dose: 40 mg Documented by: Benzonatate (Tessalon Perle) 100 mg PO TID PRN PRN PRN Reason: COUGH Last Admin: 08/12/19 07:51 Dose: 100 mg Documented by: Bisacodyl (Dulcolax) 10 mg RECTAL .PRN X 1 PRN PRN Reason: Constipation Calamine/Phenol (Calmoseptine Ointment) 1 applic TOPICAL BID [facility]; Protocol Last Admin: 08/29/19 07:48 Dose: 1 applicatio Documented by: Cholecalciferol (Vitamin D) 3,000 unit PO DAILY [facility] Last Admin: 08/29/19 07:54 Dose: 3,000 unit Documented by: Ciprofloxacin HCl (Cipro) 500 mg PO BID [facility] Stop: 08/31/19 22:01 Last Admin: 08/29/19 09:28 Dose: 500 mg Documented by: Clonidine (Catapres) 0.1 mg PO Q8H PRN PRN PRN Reason: SBP>160 OR DBP>99 Last Admin: 08/04/19 06:13 Dose: 0.1 mg Documented by: Finasteride (Proscar) 5 mg PO DAILY [facility] Last Admin: 08/29/19 07:56 Dose: 5 mg Documented by: Hydralazine HCl (Apresoline) 100 mg PO TID [facility] Last Admin: 08/29/19 15:04 Dose: 100 mg Documented by: Levetiracetam (Keppra Tablet) 500 mg PO BID [facility] Last Admin: 08/29/19 09:28 Dose: 500 mg Documented by: Lisinopril (Zestril) 5 mg PO DAILY [facility] Last Admin: 08/29/19 07:54 Dose: 5 mg Documented by: Magnesium Hydroxide (Milk Of Magnesia) 30 ml PO .PRN X 1 PRN PRN Reason: Constipation Last Admin: 08/10/19 09:58 Dose: 30 ml Documented by: Megestrol Acetate (Megace) 40 mg PO BID [facility] Last Admin: 08/29/19 07:54 Dose: 40 mg Documented by: Melatonin (Melatonin) 3 mg PO QHS [facility] Last Admin: 08/28/19 20:17 Dose: 3 mg Documented by: Metoprolol Tartrate (Lopressor (Beta Laz)) 50 mg PO BID [facility] Last Admin: 08/29/19 07:49 Dose: 50 mg Documented by: Nystatin (Mycostatin Powder) 1 applic TOPICAL BID [facility]; Protocol Last Admin: 08/29/19 09:28 Dose: 1 applicatio Documented by: Ondansetron HCl (Zofran Odt) 4 mg PO Q8H PRN PRN PRN Reason: NAUSEA Last Admin: 08/13/19 11:07 Dose: 4 mg Documented by: Pantoprazole Sodium (Protonix) 40 mg PO DAILY [facility] Last Admin: 08/29/19 07:53 Dose: 40 mg Documented by: Polyethylene Glycol (Miralax) 17 gm PO DAILY [facility] Last Admin: 08/29/19 07:56 Dose: Not Given Documented by: Senna/Docusate Sodium (Senokot-S, Crissy-Colace) 2 tablet PO BID [facility] Last Admin: 08/29/19 07:57 Dose: Not Given Documented by: Sertraline HCl (Zoloft) 100 mg PO DAILY [facility] Last Admin: 08/29/19 07:54 Dose: 100 mg Documented by: Sodium Chloride () 10 - 40 ml IV UD PRN PRN Reason: SALINE FLUSH Last Admin: 08/10/19 02:06 Dose: 10 ml Documented by: Sucralfate (Carafate) 1 gm PO 1HR_ACHS [facility] Last Admin: 08/29/19 15:05 Dose: 1 gm Documented by: Tamsulosin HCl (Flomax) 0.4 mg PO BID [facility] Last Admin: 08/29/19 07:49 Dose: 0.4 mg Documented by: STROKE Vital Signs/Narrative: Vital Signs Pulse 08/29/19 15:04 70 Medical Necessity - Tobacco Use Smoking Status: Former smoker Tobacco Use: Non-smoker Assessment/Plan All Active Problems (Last Reviewed 08/02/19 @ 07:57 by Radha Vega DO) Subdural hemorrhage (Acute) Subarachnoid hemorrhage (Acute) Intracerebral hemorrhage (Acute) Closed intraventricular hemorrhage (Acute) Cephalgia (Acute) KIMI (acute kidney injury) (Resolved) Benign soft tissue neoplasm (Resolved) Community acquired pneumonia (Resolved) Hyperglycemic crisis in diabetes mellitus (Resolved) Hypertensive crisis (Resolved) Vertigo (Resolved) 68-year-old gentleman admitted with intracranial hemorrhage/SAH/subdural hemorrhage: 1. Intracranial hemorrhage due to fall or hemorrhagic CVA and then fall; unclear: As per documentation, patient had headache and nausea vomiting night prior to fall. Patient currently is neurologically doing good on regular diet. 2. Depression - on sertraline. 3. Hypertension: Blood pressure is 140/63, 140/70 and 152/65. Continue the Lisinopril and BMP is ordered for Friday. 4. GI bleed with anemia - now stable on Protonix and Carafate. 5. Stage 3 CRF - borderline stage 4 at times. Watch the potassium closely on Lisinopril 6. DM II -glucoses generally less than 150 mg/dL, 113, 132. Well controlled on no medication 7: Pseudomonas cystitis: Urine culture from 08/20/2019 shows Pseudomonas more than 100,000 colonies On Cipro 500 mg twice daily Code Visit Inpatient E&M: 31049 Subs Hosp L2
[2019-08-29 16:50] LABS: Bedside Glucose 132 mg/dL (70-110)
--- NOTE | 2019-08-29 19:17 | NURSING ---
Patient pleasant and talkative to staff today. Refused several times to shave or have staff assist with shaving today.
[2019-08-29] MEDS: MELATONIN 3 MG TABLET PO (20:07)
[2019-08-29] MEDS: amLODIPine 10 MG Tablet PO (20:07)
[2019-08-29] MEDS: Atorvastatin Calcium 40 MG Tablet PO (20:08)
[2019-08-30] VITALS (8 sets, daily range): BP systolic 114–143; BP diastolic 57–63; PULSE 69–71; RESP 16; TEMP 36.3–36.7; O2SAT 97
[2019-08-30 05:59] LABS: Hematocrit 30.4 % (40-54); Hemoglobin 9.6 g/dL (13.0-16.5); Mean Corp Hgb Conc 31.6 g/dL (32-36); Mean Corpuscular Hgb 27.2 pg (27.0-32.0); Mean Corpuscular Volume 86.1 fL (80-94); Mean Platelet Vol. 8.8 fl (6.2-12.0); Platelet Count 249 K/mm3 (150-450); RBC Distribution Width CV 15.3 % (11.6-14.6); RBC Distribution Width SD 48.3 fl (35.1-43.9); Red Blood Count 3.53 M/mm3 (4.6-6.2); White Blood Count 7.9 K/mm3 (4.4-11.0)
[2019-08-30 06:21] LABS: BUN 33 mg/dL (7-18); BUN/Creat Ratio 16.5 RATIO (10-20); Calcium,Total 8.3 mg/dL (8.5-10.1); Chloride 118 mmol/L (98-107); EST Glomerular Filtration Rate 35 mL/min (>60); Est Glom Filt Rate - Afr Amer 43 mL/min (>60); Estimated Creatinine Clearance 33.25 ml/min; Glucose 119 mg/dL (74-106); Potassium 4.3 mmol/L (3.5-5.1); Sodium Level 144 mmol/L (136-145)
[2019-08-30] MEDS: hydrALAZINE 50 MG Tablet 100 MG PO ×3 (06:29→21:27)
[2019-08-30] MEDS: Acetaminophen 500 MG Tablet 1000 MG PO ×3 (06:31→21:33)
[2019-08-30 06:40] LABS: Bedside Glucose 120 mg/dL (70-110)
[2019-08-30] MEDS: Sertraline 100 MG Tablet PO (07:59)
[2019-08-30] MEDS: Pantoprazole Sodium 40 MG Tablet PO (07:59)
[2019-08-30] MEDS: Finasteride 5 MG Tablet PO (08:00)
[2019-08-30] MEDS: Metoprolol Tartrate 50 MG Tablet PO ×2 (08:00→21:29)
[2019-08-30] MEDS: levETIRAcetam 500 MG Tablet PO ×2 (08:00→21:28)
[2019-08-30] MEDS: Lisinopril 5 MG Tablet PO (08:00)
[2019-08-30] MEDS: Sucralfate 1 GM Tablet PO ×4 (08:00→21:25)
[2019-08-30] MEDS: Tamsulosin HCl 0.4 MG Capsule PO ×2 (08:00→21:28)
[2019-08-30] MEDS: Ciprofloxacin 500 MG Tablet PO ×2 (08:00→21:28)
[2019-08-30] MEDS: Menthol/Lanolin/Calamine/Znox 113 GM Tube 1 APPLIC TOPICAL ×2 (08:01→21:28)
[2019-08-30] MEDS: Megestrol 40 MG Tablet PO ×2 (08:01→21:30)
[2019-08-30] MEDS: Nystatin Powder 15gm Bottle 1 APPLIC TOPICAL ×2 (08:03→21:32)
--- NOTE | 2019-08-30 12:08 | CASEMGMT ---
Social Work IDT met with patient for Team Meeting. Discussed patient's progress in therapy. Pt is SBA for transfers, walking on multiple surfaces walking 400 ft with FWW, can walk with cane at CGA to min assist, and walks faster and less steady walking 200 ft. Pt completed 5 steps CGA with 2 HR, SBA for all ADLs. Pt some motivation needed for pt to participate in therapy. Pt is still having poor safety awareness, not using call light always, getting up without shoes. ST is working on improved recall, comprehension, can tell time with cues, and still difficulty with blurry vision. Mood has improved and appetite is fair. Explained [employer] with NRD 08/31 and continued stay is not guaranteed. Will continue to follow. Cha Donnelly, CALEB FIRE ALARM REPAIRER
[2019-08-30 17:01] LABS: Bedside Glucose 161 mg/dL (70-110)
--- NOTE | 2019-08-30 17:43 | PCM.PROGNOTE ---
Patient Problems: Active and Suspected Problems (Last Reviewed 08/02/19 @ 07:57 by Radha Vega DO) Subdural hemorrhage (Acute) 07/22/19 Subarachnoid hemorrhage (Acute) 07/22/19 Intracerebral hemorrhage (Acute) 07/22/19 Closed intraventricular hemorrhage (Acute) 07/22/19 Cephalgia (Acute) due to recent intracerebral hemorrhage Subjective: Day #9 of ciprofloxacin for treatment of Pseudomonas UTI. Seen on rounds today with the team. No family present at rounds. Responding to calls from the medical social consultant and she has also not provided the medical social consultant with his financial information so that he can get signed up for Medicaid. Afebile VSS Maintaining appropriate oxygen saturation on RA Oral intake is continues to be erratic, he eats 100% of what is brought in by family. No so good with the hospital food. The weights are not accurate......sometimes differ from 3-5 lbs overnight. Discussed with nursing - no problems that need addressed Reviewed the PT/OT/ST notes - he is doing well. He is getting his 3 hours in every day and he continues to improve. Safety awareness is still not where the ST would like to see it but, it is getting better. He had a good week last week. Good mood and is always joking with the staff. Medication list reviewed. All lab was personally reviewed. Hemoglobin is stable at 9.6. Platelets and white blood cell count are within normal limits. BUN is 33 and the creatinine is 2.00 today, down from 2.31 on 08/27/2019. Phosphorus is normal. Calcium corrected for hypoalbuminemia is within normal limits. He has no complaints today and he denies chest pain, constipation, abdominal pain, nausea/vomiting, shortness of breath, lightheadedness. He is sleeping well. He denies dysuria, urinary retention, urgency. - Physical Exam Vitals/I&O's: Vital Signs Temp Pulse Resp BP Pulse Ox 97.4 F L 70 16 114/57 L 97 08/30/19 07:00 08/30/19 14:56 08/30/19 07:00 08/30/19 14:56 08/30/19 07:00 Oxygen Flow Rate (L/min) 2 Oxygen Delivery Method Room Air Weight: 163 lb 5.8 oz Body Mass Index (BMI) 29.0 Finger Stick Blood Glucose 480 Intake and Output for Last 24 Hours 08/28/19 08/29/19 08/30/19 23:59 23:59 23:59 Intake Total 1660 / 1660 2360 / 2360 1470 / 1470 Output Total 1850 / 1850 1600 / 1800 1550 / 1550 Balance -190 / -190 760 / 560 -80 / -80 General: Alert, Oriented x3, Cooperative, No apparent distress, - - sitting in the reclinwer doing PT when I entered the room HEENT: Atraumatic, PERRLA, EOMI, Normocephalic Oral: Moist Mucosa, No Gingival or Mucosal Lesions/ Ulcerations Neck: Supple, No Nodes, Trachea Midline Lungs: Clear to auscultation Cardiovascular: Regular rate, Regular Rhythm, Normal S1, Normal S2, No Gallop Abdomen: Bowel Sounds Present, Soft, Non Tender, Non-Distended, - - No guarding with palpation, no bladder distention. Extremities: No edema, No Calf Tenderness Skin: No rashes, No breakdown Neurological: Cranial nerves II-XII grossly intact Psych/Mental Status: Normal Affect, Appropriate Laboratory Results 08/30/19 05:35: WBC 7.9, RBC 3.53 L, Hgb 9.6 L, Hct 30.4 L, MCV 86.1, MCH 27.2, MCHC 31.6 L, RDW Std Deviation 48.3 H, RDW Coeff of Arturo 15.3 H, Plt Count 249, MPV 8.8 08/30/19 05:35: Sodium 144, Potassium 4.3, Chloride 118 H, Carbon Dioxide 21.0, BUN 33 H, Creatinine 2.00 H, Estim Creat Clear Calc 33.25, Est GFR (MDRD) Af Amer 43 L, Est GFR (MDRD) Non-Af 35 L, BUN/Creatinine Ratio 16.5, Glucose 119 H, Calcium 8.3 L, Phosphorus 4.0, Albumin 2.0 L 08/30/19 06:32: POC Glucose 120 H 08/30/19 16:32: POC Glucose 161 H Current Medications Acetaminophen (Tylenol) 1,000 mg PO Q8 [facility] Last Admin: 08/30/19 14:57 Dose: 1,000 mg Documented by: Amlodipine Besylate (Norvasc) 10 mg PO QHS [facility] Last Admin: 01/19/20 20:07 Dose: 10 mg Documented by: Atorvastatin Calcium (Lipitor) 40 mg PO QHS [facility] Last Admin: 08/29/19 20:08 Dose: 40 mg Documented by: Benzonatate (Tessalon Perle) 100 mg PO TID PRN PRN PRN Reason: COUGH Last Admin: 08/12/19 07:51 Dose: 100 mg Documented by: Bisacodyl (Dulcolax) 10 mg RECTAL .PRN X 1 PRN PRN Reason: Constipation Calamine/Phenol (Calmoseptine Ointment) 1 applic TOPICAL BID [facility]; Protocol Last Admin: 08/30/19 08:01 Dose: 1 applicatio Documented by: Cholecalciferol (Vitamin D) 3,000 unit PO DAILY [facility] Last Admin: 08/30/19 08:02 Dose: 3,000 unit Documented by: Ciprofloxacin HCl (Cipro) 500 mg PO BID [facility] Stop: 08/31/19 22:01 Last Admin: 08/30/19 08:00 Dose: 500 mg Documented by: Clonidine (Catapres) 0.1 mg PO Q8H PRN PRN PRN Reason: SBP>160 OR DBP>99 Last Admin: 08/04/19 06:13 Dose: 0.1 mg Documented by: Finasteride (Proscar) 5 mg PO DAILY [facility] Last Admin: 08/30/19 08:00 Dose: 5 mg Documented by: Hydralazine HCl (Apresoline) 100 mg PO TID [facility] Last Admin: 08/30/19 14:56 Dose: 100 mg Documented by: Levetiracetam (Keppra Tablet) 500 mg PO BID [facility] Last Admin: 08/30/19 08:00 Dose: 500 mg Documented by: Lisinopril (Zestril) 5 mg PO DAILY [facility] Last Admin: 08/30/19 08:00 Dose: 5 mg Documented by: Magnesium Hydroxide (Milk Of Magnesia) 30 ml PO .PRN X 1 PRN PRN Reason: Constipation Last Admin: 08/10/19 09:58 Dose: 30 ml Documented by: Megestrol Acetate (Megace) 40 mg PO BID [facility] Last Admin: 08/30/19 08:01 Dose: 40 mg Documented by: Melatonin (Melatonin) 3 mg PO QHS [facility] Last Admin: 08/29/19 20:07 Dose: 3 mg Documented by: Metoprolol Tartrate (Lopressor (Beta Laz)) 50 mg PO BID [facility] Last Admin: 08/30/19 08:00 Dose: 50 mg Documented by: Nystatin (Mycostatin Powder) 1 applic TOPICAL BID [facility]; Protocol Last Admin: 08/30/19 08:03 Dose: 1 applicatio Documented by: Ondansetron HCl (Zofran Odt) 4 mg PO Q8H PRN PRN PRN Reason: NAUSEA Last Admin: 08/13/19 11:07 Dose: 4 mg Documented by: Pantoprazole Sodium (Protonix) 40 mg PO DAILY [facility] Last Admin: 08/30/19 07:59 Dose: 40 mg Documented by: Polyethylene Glycol (Miralax) 17 gm PO DAILY [facility] Last Admin: 08/30/19 08:02 Dose: Not Given Documented by: Senna/Docusate Sodium (Senokot-S, Crissy-Colace) 2 tablet PO BID [facility] Last Admin: 08/30/19 08:02 Dose: Not Given Documented by: Sertraline HCl (Zoloft) 100 mg PO DAILY [facility] Last Admin: 08/30/19 07:59 Dose: 100 mg Documented by: Sodium Chloride () 10 - 40 ml IV UD PRN PRN Reason: SALINE FLUSH Last Admin: 08/10/19 02:06 Dose: 10 ml Documented by: Sucralfate (Carafate) 1 gm PO 1HR_ACHS [facility] Last Admin: 08/30/19 16:36 Dose: 1 gm Documented by: Tamsulosin HCl (Flomax) 0.4 mg PO BID [facility] Last Admin: 08/30/19 08:00 Dose: 0.4 mg Documented by: Medical Necessity - Tobacco Use Smoking Status: Former smoker Tobacco Use: Non-smoker Assessment/Plan All Active Problems (Last Reviewed 08/02/19 @ 07:57 by Radha Vega DO) Subdural hemorrhage (Acute) Subarachnoid hemorrhage (Acute) Intracerebral hemorrhage (Acute) Closed intraventricular hemorrhage (Acute) Cephalgia (Acute) KIMI (acute kidney injury) (Resolved) Benign soft tissue neoplasm (Resolved) Community acquired pneumonia (Resolved) Hyperglycemic crisis in diabetes mellitus (Resolved) Hypertensive crisis (Resolved) Vertigo (Resolved) Impressions 1. Debility due to Subdural hemorrhage, intracerebral hemorrhage, interventricular hemorrhage and subarachnoid hemorrhage sustained in a fall while on Warfarin? or did he have a bleed the night before that caused increased intracranial pressure that lead to the N/V/CASTLE? Confusion and LOC much improved. He had a very good week last week and turned a corner. Modd is much better and his willingness to do therapy 3 times a week 2. cough - much better since the Cozaar was discontinued. Still with occasional cough....not always associated with eating. He is currently on regular textures and thin liquids per ST. Lungs are CTA 3. 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 He will need to follow up with a sheet metal duct worker supervisor post DC. Creat has varied between 2.1-2.48 depending on his oral intake/fluid intake. Creat is 2.00 today! 4. DM II - doing well on a regular diet with no medication and the BS's are all less than 200. 5. CAD with hx of CABG - stable, no CP 6. PVD 7. anemia due to blood loss -heme positive stool. Hemoglobin is now stable on Protonix 40 mg daily and sucralfate 1 g 4 times daily. We will continue to monitor H&H periodically. No need for emergent endoscopy at this time. 8. recurrent complicated UTI's with different organisms. Has prostatic calcifications. No intrarenal stones. The urine residuals are now less than 200 on Proscar, Flomax. He is growing > 100,000 colonies of Pseudomonas in the urine. He is on Cipro 500 mg BID and I increased the duration of treatment to 10 days BUT, I suspect he may have chronic prostatitis and if this is the case he would need 4-6 weeks of antibiotics. Will consult Dr. Lopez for his recommendations. Dr. Lopez feels that since he is asymptomatic we should not give a prolonged course of antibiotics. Today is day #9 of Cipro. Will repeat a UA and culture 4-5 days after the antibiotic is concluded. 9. 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 Did he have cognitive dysfunction that originated with that CVA and he never completely recovered? 10. Depression - started on sertraline on 08/06/19 so we are almost at the 3 week stacey (18 days today) and I think we are starting to see some improvement. I am sure this is multifactorial. He has a dtr and a grandchild with [facility]. He is no longer working. He had a stroke in August in the left parietal area and went home with PT/OT and no ST....he may have had the decrease in the cognitive function then and it was never recognized. This may be why he had so much difficulty with finances. Now he was in an acute hospital for a brain bleed - due to a fall OR did it happen before the falls and the falls happened because of a brain bleed? and now he is in rehab. He is in financial trouble and has to have a senior qc technician to help prevent him losing his house. He turned a corner last week after almost 3 weeks on sertraline and his mood is much better and he is now very motivated to do therapy so that he can get home. He is joking with us and is very upbeat. 11. Orthostatic hypotension - resolved 12. UGI Bleed with anemia - continue the Protonix and the Carafate. No need for endoscopy at this time. HGB is stable no seizures while on Cipro Continue sertraline Continue Protonix and sucralfate as ordered Await the update from the insurance company on possible date of discharge I alerted the patient that his is not answering the calls from the medical social consultant and that no one has gotten back to her with his financial information so that an application can be made to Medicaid. Code Visit Inpatient E&M: 26717 Subs Hosp L2
[2019-08-30] MEDS: Atorvastatin Calcium 40 MG Tablet PO (21:29)
[2019-08-30] MEDS: MELATONIN 3 MG TABLET PO (21:30)
[2019-08-30] MEDS: amLODIPine 10 MG Tablet PO (21:32)
[2019-08-31] VITALS (8 sets, daily range): BP systolic 125–141; BP diastolic 55–69; PULSE 64–70; RESP 16–17; TEMP 36.7–37.1; O2SAT 97–98
[2019-08-31] MEDS: hydrALAZINE 50 MG Tablet 100 MG PO ×3 (06:44→22:21)
[2019-08-31] MEDS: Acetaminophen 500 MG Tablet 1000 MG PO ×3 (06:44→22:19)
[2019-08-31] MEDS: Sucralfate 1 GM Tablet PO ×4 (06:45→22:21)
[2019-08-31 06:55] LABS: Bedside Glucose 122 mg/dL (70-110)
--- NOTE | 2019-08-31 07:00 | NURSING ---
pt c/o dizziness after getting up for toileting this a.m. pt was to go for breakfast and line leader alerted nurse of complaint. BP was 148/83 and HR 68. pt sat for a moment and then taken to multipurpose room
[2019-08-31] MEDS: Menthol/Lanolin/Calamine/Znox 113 GM Tube 1 APPLIC TOPICAL ×2 (09:38→22:24)
[2019-08-31] MEDS: Nystatin Powder 15gm Bottle 1 APPLIC TOPICAL ×2 (09:38→22:24)
[2019-08-31] MEDS: Pantoprazole Sodium 40 MG Tablet PO (09:39)
[2019-08-31] MEDS: Sertraline 100 MG Tablet PO (09:39)
[2019-08-31] MEDS: Megestrol 40 MG Tablet PO ×2 (09:39→22:20)
[2019-08-31] MEDS: Ciprofloxacin 500 MG Tablet PO ×2 (09:39→22:21)
[2019-08-31] MEDS: levETIRAcetam 500 MG Tablet PO ×2 (09:39→22:20)
[2019-08-31] MEDS: Finasteride 5 MG Tablet PO (09:39)
[2019-08-31] MEDS: Lisinopril 5 MG Tablet PO (09:39)
[2019-08-31] MEDS: Tamsulosin HCl 0.4 MG Capsule PO ×2 (09:40→22:20)
[2019-08-31] MEDS: Metoprolol Tartrate 50 MG Tablet PO ×2 (09:45→22:20)
[2019-08-31 17:46] LABS: Bedside Glucose 148 mg/dL (70-110)
[2019-08-31] MEDS: amLODIPine 10 MG Tablet PO (22:19)
[2019-08-31] MEDS: Atorvastatin Calcium 40 MG Tablet PO (22:20)
[2019-08-31] MEDS: MELATONIN 3 MG TABLET PO (22:20)
[2019-09-01] VITALS (7 sets, daily range): BP systolic 123–140; BP diastolic 55–62; PULSE 62–66; RESP 16; TEMP 36.9–37.1; O2SAT 96
[2019-09-01] MEDS: Acetaminophen 500 MG Tablet 1000 MG PO ×3 (06:17→20:49)
[2019-09-01] MEDS: hydrALAZINE 50 MG Tablet 100 MG PO ×3 (06:18→20:47)
--- NOTE | 2019-09-01 06:54 | NURSING ---
Pt c/o dizziness to software verification engineer following toileting. pt asked to go back to bed and pt feeling some relief. bp 140/62 & hr 66
[2019-09-01 07:15] LABS: Bedside Glucose 142 mg/dL (70-110)
[2019-09-01] MEDS: Megestrol 40 MG Tablet PO ×2 (08:09→20:49)
[2019-09-01] MEDS: Lisinopril 5 MG Tablet PO (08:09)
[2019-09-01] MEDS: Metoprolol Tartrate 50 MG Tablet PO ×2 (08:10→20:49)
[2019-09-01] MEDS: Pantoprazole Sodium 40 MG Tablet PO (08:10)
[2019-09-01] MEDS: Finasteride 5 MG Tablet PO (08:10)
[2019-09-01] MEDS: levETIRAcetam 500 MG Tablet PO ×2 (08:10→20:49)
[2019-09-01] MEDS: Tamsulosin HCl 0.4 MG Capsule PO ×2 (08:10→20:48)
[2019-09-01] MEDS: Sucralfate 1 GM Tablet PO ×4 (08:11→20:48)
[2019-09-01] MEDS: Menthol/Lanolin/Calamine/Znox 113 GM Tube 1 APPLIC TOPICAL ×2 (08:14→20:48)
[2019-09-01] MEDS: Nystatin Powder 15gm Bottle 1 APPLIC TOPICAL ×2 (08:15→20:49)
[2019-09-01] MEDS: Sertraline 100 MG Tablet PO (08:16)
--- NOTE | 2019-09-01 10:19 | PN_ITS ---
Progress Note Afebile VSS-blood pressure is now well controlled with no dizziness or lightheadedness with standing. Maintaining appropriate oxygen saturation on RA Oral intake is erratic. Weight is stable. Discussed with nursing - no problems that need addressed Reviewed the PT/OT/ST notes Medication list reviewed. No complaints. Denies dysuria, hesitancy, retention, urgency. Doing well with therapy. Much better cognitive function. Anxious to get home but, willing to stay until he is safe to be discharged home. His son is at home during the day. Alert, oriented X 3, very talkative and appropriate. No cough Lungs - CTA H-RRR, no gallop ABD - soft, NT, ND no edema Impressions 1. complicated UTI due to Pseudomonas - resolved 2. orthostatic hypotension - resolved 3. Depression - much better.....continue Sertraline 4. N/N anemia. Continue the Carafate and the Protonix UA with a urine culture today. If it is still positive will consult ID and get them to weigh in on the need for adjunct faculty for medical terminology antibiotics for prostatitis......he had an elevated WBC and left shift with the infection. CBC, BMP in the AM Waiting to hear about update from the insurance company. Pt is anxious to go home. I had a talk with him about his not returning phone calls and not providing the financial info needed to complete the Medicaid application. He will speak to her. STROKE Vital Signs/Narrative: Vital Signs Temp Pulse Resp BP Pulse Ox 09/01/19 09:01 98.4 F 66 16 140/62 H 96 09/01/19 08:10 66 140/62 H
[2019-09-01 14:16] LABS: Mucous, Urine 0 SEEN /hpf (<or=2+); Red Blood Cells-Urine 0 SEEN /hpf (0-5); White Blood Cells 0 SEEN /hpf (0-5)
[2019-09-01 14:29] LABS: Color, Urine Yellow (Yellow); Glucose, Dipstick 100 mg/dl (Normal); Ketone-Dipstick Negative (Negative); Leukocyte Esterase-Dipstick Negative /ul (Negative); Nitrite-Dipstick Negative (Negative); Occult Blood-Urine Negative /ul (Negative); Protein-Dipstick 500 mg/dl (Negative); Specific Gravity, Urine 1.015 (1.002-1.030); Urine Bilirubin Dipstick Negative (Negative); Urine Clarity Sl. Cloudy (Clear); Urine Urobilinogen Normal (Normal)
[2019-09-01 14:36] LABS: Squamous Epithelial Cells - UA 0-5 SEEN /hpf (0-5)
[2019-09-01 14:37] LABS: Bacteria 1+ /hpf (None Seen)
[2019-09-01 17:21] LABS: Bedside Glucose 152 mg/dL (70-110)
[2019-09-01] MEDS: amLODIPine 10 MG Tablet PO (20:49)
[2019-09-01] MEDS: Atorvastatin Calcium 40 MG Tablet PO (20:49)
[2019-09-01] MEDS: MELATONIN 3 MG TABLET PO (20:49)
--- NOTE | 2019-09-01 21:05 | NURSING ---
upon hs assessment, this nurse noted that pt was still in clothes from the day. this nurse tries to get pt to walk to restroom to at least try to void and change clothes. pt states to this nurse i do not have to go, i do not pee at night. this nurse states that she understands but this nurse would at least like pt to try to void since he is going to bed. pt very frustrated and angry- pt still ambulates and attempts to void. pt changed clothes and has no output at this time. pt refuses to wear attends and insists on keeping his underwear on. pt ambulates back to bed and apologizes to this nurse for giving so much grief. this nurse understanding of pt emotions. pt thankful and resting with eyes closed. call light within reach and bed exit alarm on.
[2019-09-02] VITALS (7 sets, daily range): BP systolic 128–140; BP diastolic 59–76; PULSE 66–68; RESP 16–17; TEMP 36.6–36.7; O2SAT 97
[2019-09-02 05:58] LABS: Absolute Neutrophil Count 5.1 X10^3/uL (2.0-7.7); Basophil# 0.03 X10^3/uL; Basophil% 0.4 % (0-1); Eosinophil# 0.34 X10^3/uL; Eosinophils% 4.4 % (0-5); Hematocrit 29.9 % (40-54); Hemoglobin 9.6 g/dL (13.0-16.5); Mean Corp Hgb Conc 32.1 g/dL (32-36); Mean Corpuscular Hgb 27.8 pg (27.0-32.0); Mean Corpuscular Volume 86.7 fL (80-94); Mean Platelet Vol. 9.4 fl (6.2-12.0); Monocyte# 0.51 X10^3/uL; Monocyte% 6.5 % (0-10); NRBC Flagged by Analyzer 0 % (0-5); Neutrophil % 65.3 % (47-70); Platelet Count 236 K/mm3 (150-450); RBC Distribution Width CV 15.4 % (11.6-14.6); RBC Distribution Width SD 48.5 fl (35.1-43.9); Red Blood Count 3.45 M/mm3 (4.6-6.2); White Blood Count 7.8 K/mm3 (4.4-11.0)
[2019-09-02 06:25] LABS: Anion Gap 6 (5-15); BUN 38 mg/dL (7-18); BUN/Creat Ratio 18.7 RATIO (10-20); Calcium,Total 8.1 mg/dL (8.5-10.1); Chloride 121 mmol/L (98-107); Creatinine, Serum 2.03 mg/dL (0.70-1.30); EST Glomerular Filtration Rate 35 mL/min (>60); Est Glom Filt Rate - Afr Amer 42 mL/min (>60); Estimated Creatinine Clearance 32.76 ml/min; Glucose 123 mg/dL (74-106); Potassium 4.4 mmol/L (3.5-5.1); Sodium Level 146 mmol/L (136-145)
[2019-09-02] MEDS: Acetaminophen 500 MG Tablet 1000 MG PO ×3 (06:42→19:54)
[2019-09-02] MEDS: hydrALAZINE 50 MG Tablet 100 MG PO ×3 (06:42→19:56)
[2019-09-02] MEDS: Sucralfate 1 GM Tablet PO ×4 (06:43→19:58)
[2019-09-02 06:46] LABS: Bedside Glucose 125 mg/dL (70-110)
[2019-09-02] MEDS: Sertraline 100 MG Tablet PO (08:45)
[2019-09-02] MEDS: Megestrol 40 MG Tablet PO ×2 (08:46→19:54)
[2019-09-02] MEDS: levETIRAcetam 500 MG Tablet PO ×2 (08:46→19:54)
[2019-09-02] MEDS: Finasteride 5 MG Tablet PO (08:46)
[2019-09-02] MEDS: Tamsulosin HCl 0.4 MG Capsule PO ×2 (08:46→19:55)
[2019-09-02] MEDS: Metoprolol Tartrate 50 MG Tablet PO ×2 (08:46→19:54)
[2019-09-02] MEDS: Pantoprazole Sodium 40 MG Tablet PO (08:46)
[2019-09-02] MEDS: Lisinopril 5 MG Tablet PO (08:46)
[2019-09-02] MEDS: Nystatin Powder 15gm Bottle 1 APPLIC TOPICAL (08:50)
[2019-09-02] MEDS: Menthol/Lanolin/Calamine/Znox 113 GM Tube 1 APPLIC TOPICAL ×2 (08:50→19:58)
[2019-09-02] MEDS: Meclizine 12.5 MG Tablet PO ×2 (12:05→20:16)
[2019-09-02 17:05] LABS: Bedside Glucose 136 mg/dL (70-110)
[2019-09-02] MEDS: MELATONIN 3 MG TABLET PO (19:55)
[2019-09-02] MEDS: amLODIPine 10 MG Tablet PO (19:55)
[2019-09-02] MEDS: Atorvastatin Calcium 40 MG Tablet PO (19:56)
[2019-09-03] VITALS (7 sets, daily range): BP systolic 125–133; BP diastolic 59–70; PULSE 66–82; RESP 16–18; TEMP 37.2; O2SAT 97
[2019-09-03] MEDS: Sucralfate 1 GM Tablet PO ×4 (06:15→21:51)
[2019-09-03] MEDS: Acetaminophen 500 MG Tablet 1000 MG PO ×3 (06:16→21:49)
[2019-09-03] MEDS: hydrALAZINE 50 MG Tablet 100 MG PO ×3 (06:16→21:49)
[2019-09-03] MEDS: Meclizine 12.5 MG Tablet PO (06:17)
[2019-09-03 06:30] LABS: Bedside Glucose 115 mg/dL (70-110)
[2019-09-03] MEDS: Tamsulosin HCl 0.4 MG Capsule PO ×2 (10:02→21:49)
[2019-09-03] MEDS: Megestrol 40 MG Tablet PO ×2 (10:03→21:49)
[2019-09-03] MEDS: Metoprolol Tartrate 50 MG Tablet PO ×2 (10:03→21:48)
[2019-09-03] MEDS: levETIRAcetam 500 MG Tablet PO ×2 (10:03→21:49)
[2019-09-03] MEDS: Pantoprazole Sodium 40 MG Tablet PO (10:04)
[2019-09-03] MEDS: Finasteride 5 MG Tablet PO (10:04)
[2019-09-03] MEDS: Lisinopril 5 MG Tablet PO (10:05)
[2019-09-03] MEDS: Sertraline 100 MG Tablet PO (10:05)
[2019-09-03] MEDS: Nystatin Powder 15gm Bottle 1 APPLIC TOPICAL (10:06)
[2019-09-03] MEDS: Menthol/Lanolin/Calamine/Znox 113 GM Tube 1 APPLIC TOPICAL ×2 (10:06→21:50)
[2019-09-03 17:11] LABS: Bedside Glucose 137 mg/dL (70-110)
[2019-09-03] MEDS: Senna/Docusate Sodium 1 Tablet 2 TABLET PO (21:49)
[2019-09-03] MEDS: Atorvastatin Calcium 40 MG Tablet PO (21:49)
[2019-09-03] MEDS: amLODIPine 10 MG Tablet PO (21:49)
[2019-09-03] MEDS: MELATONIN 3 MG TABLET PO (21:49)
[2019-09-04] VITALS (7 sets, daily range): BP systolic 129–138; BP diastolic 55–67; PULSE 63–75; RESP 16–18; TEMP 36.6–36.8; O2SAT 95–97
[2019-09-04] MEDS: hydrALAZINE 50 MG Tablet 100 MG PO ×3 (05:37→19:55)
[2019-09-04] MEDS: Acetaminophen 500 MG Tablet 1000 MG PO ×3 (05:37→19:51)
[2019-09-04] MEDS: Sucralfate 1 GM Tablet PO ×4 (05:37→19:54)
[2019-09-04 06:30] LABS: Bedside Glucose 150 mg/dL (70-110)
[2019-09-04] MEDS: Lisinopril 5 MG Tablet PO (09:02)
[2019-09-04] MEDS: Tamsulosin HCl 0.4 MG Capsule PO ×2 (09:02→19:55)
[2019-09-04] MEDS: Finasteride 5 MG Tablet PO (09:02)
[2019-09-04] MEDS: Meclizine 12.5 MG Tablet PO (09:02)
[2019-09-04] MEDS: Pantoprazole Sodium 40 MG Tablet PO (09:02)
[2019-09-04] MEDS: Megestrol 40 MG Tablet PO ×2 (09:02→19:54)
[2019-09-04] MEDS: Metoprolol Tartrate 50 MG Tablet PO ×2 (09:02→19:51)
[2019-09-04] MEDS: Sertraline 100 MG Tablet PO (09:02)
[2019-09-04] MEDS: levETIRAcetam 500 MG Tablet PO ×2 (09:03→19:51)
[2019-09-04] MEDS: Menthol/Lanolin/Calamine/Znox 113 GM Tube 1 APPLIC TOPICAL ×2 (09:07→20:00)
[2019-09-04 17:06] LABS: Bedside Glucose 116 mg/dL (70-110)
[2019-09-04] MEDS: MELATONIN 3 MG TABLET PO (19:51)
[2019-09-04] MEDS: amLODIPine 10 MG Tablet PO (19:51)
[2019-09-04] MEDS: Atorvastatin Calcium 40 MG Tablet PO (19:55)
[2019-09-05] VITALS (7 sets, daily range): BP systolic 136–152; BP diastolic 68–73; PULSE 68–72; RESP 16; TEMP 36.8–36.9; O2SAT 95
[2019-09-05] MEDS: Acetaminophen 500 MG Tablet 1000 MG PO ×3 (05:49→20:28)
[2019-09-05] MEDS: hydrALAZINE 50 MG Tablet 100 MG PO ×3 (05:49→20:27)
[2019-09-05] MEDS: Sucralfate 1 GM Tablet PO ×4 (05:56→20:26)
[2019-09-05 06:10] LABS: Bedside Glucose 112 mg/dL (70-110)
[2019-09-05] MEDS: Lisinopril 5 MG Tablet PO (07:34)
[2019-09-05] MEDS: Sertraline 100 MG Tablet PO (07:34)
[2019-09-05] MEDS: Pantoprazole Sodium 40 MG Tablet PO (07:34)
[2019-09-05] MEDS: Finasteride 5 MG Tablet PO (07:34)
[2019-09-05] MEDS: Megestrol 40 MG Tablet PO ×2 (07:35→20:28)
[2019-09-05] MEDS: levETIRAcetam 500 MG Tablet PO ×2 (07:35→20:28)
[2019-09-05] MEDS: Tamsulosin HCl 0.4 MG Capsule PO ×2 (07:35→20:27)
[2019-09-05] MEDS: Metoprolol Tartrate 50 MG Tablet PO ×2 (07:35→20:28)
[2019-09-05] MEDS: Nystatin Powder 15gm Bottle 1 APPLIC TOPICAL ×2 (07:37→20:31)
[2019-09-05] MEDS: Menthol/Lanolin/Calamine/Znox 113 GM Tube 1 APPLIC TOPICAL ×2 (07:37→20:33)
[2019-09-05 17:11] LABS: Bedside Glucose 162 mg/dL (70-110)
--- NOTE | 2019-09-05 20:12 | PCM.PN.BLA ---
Progress Note Afebile VSS-occasional mild elevation in systolic blood pressure Maintaining appropriate oxygen saturation on RA Weight is stable Discussed with nursing - no problems that need addressed. Reviewed the PT/OT/ST notes - he needed a lot of encouragement to do therapy yesterday. He is making progress but, the short term goals have not been met yet. He told the GONZALEZ yesterday that he felt cold and tired. He did not tell this to me today. Medication list reviewed. Blood sugar record was reviewed. The blood sugars are under excellent control with diet alone Denies chest pain, shortness of breath, nausea, lightheadedness, abdominal pain. He feels like he completely empties his bladder when he urinates. He once again is asking when he can go home. Will discuss this on team rounds in the AM. He continues to progress. Alert and oriented x3, appropriate, able to participate in conversation socially. Mucous membranes are moist No JVD Lungs-clear to auscultation with no wheezes, rales or rhonchi Heart-regular rate and rhythm, no gallop Abdomen-soft, nondistended, nontender, bowel sounds heard in all 4 quadrants, no bladder distention No peripheral edema No rashes and no breakdown Impressions 1. ICH/SAH/subdural hemorrhage due to a fall? or did he have a hemorragic CVA and then fell? He had CASTLE and N/V the night prior to the fall - possibly due to ICH? He is progressing in therapy. Has not obtained his short term goals yet. 2. Depression - much improved with sertraline. Will continue at [facility]. 3. BP - much better....continue current antihypertensives. 4. GI bleed with anemia - on Protonix and Carafate. 5. Stage 3 CRF 6. Diabetes mellitus type 0-qvie-[id number] on no medication/diet alone Discontinue Accu-Cheks Recheck CBC and BMP in the a.m.I am concerned about the fatigue and chill he c/o yesterday. Will also check a UA......has had 2 UTI's in the [facility]...one with E. Coli and [address] Lopez feels that he does not have prostatitis since he is asymptomatic did not recommend a prolonged course of antibiotics. The UA on 09/01/2019 had 0 WBCs, 0 RBCs and 1+ bacteria. The urine culture was negative. Code Visit Inpatient E&M: 31189 Subs Hosp L2
[2019-09-05] MEDS: Atorvastatin Calcium 40 MG Tablet PO (20:28)
[2019-09-05] MEDS: MELATONIN 3 MG TABLET PO (20:29)
[2019-09-05] MEDS: amLODIPine 10 MG Tablet PO (20:29)
[2019-09-06] VITALS (7 sets, daily range): BP systolic 133–152; BP diastolic 59–72; PULSE 65–73; RESP 16–18; TEMP 36.8–36.9; O2SAT 97
[2019-09-06 05:59] LABS: Absolute Lymphocyte Count 1.84 X10^3/uL (0.83-4.51); Absolute Neutrophil Count 5.3 X10^3/uL (2.0-7.7); Basophil# 0.05 X10^3/uL; Basophil% 0.6 % (0-1); Eosinophils% 3.6 % (0-5); Hematocrit 30.1 % (40-54); Hemoglobin 9.5 g/dL (13.0-16.5); Lymphocyte # 1.84 X10^3/ul (4.0); Lymphocyte % 22.4 % (19-41); Mean Corp Hgb Conc 31.6 g/dL (32-36); Mean Corpuscular Hgb 27.1 pg (27.0-32.0); Mean Corpuscular Volume 85.8 fL (80-94); Mean Platelet Vol. 9.8 fl (6.2-12.0); Monocyte# 0.66 X10^3/uL; NRBC Flagged by Analyzer 0 % (0-5); Neutrophil # 5.34 X10^3/uL (2.7-7.7); Platelet Count 220 K/mm3 (150-450); RBC Distribution Width CV 15.9 % (11.6-14.6); RBC Distribution Width SD 49.9 fl (35.1-43.9); Red Blood Count 3.51 M/mm3 (4.6-6.2); White Blood Count 8.2 K/mm3 (4.4-11.0)
[2019-09-06] MEDS: Sucralfate 1 GM Tablet PO ×4 (06:06→20:16)
[2019-09-06] MEDS: Acetaminophen 500 MG Tablet 1000 MG PO ×3 (06:06→20:16)
[2019-09-06] MEDS: hydrALAZINE 50 MG Tablet 100 MG PO ×3 (06:06→20:18)
[2019-09-06 06:07] LABS: Anion Gap 7 (5-15); BUN 41 mg/dL (7-18); BUN/Creat Ratio 21.4 RATIO (10-20); Calcium,Total 8.1 mg/dL (8.5-10.1); Chloride 120 mmol/L (98-107); Creatinine, Serum 1.92 mg/dL (0.70-1.30); EST Glomerular Filtration Rate 37 mL/min (>60); Est Glom Filt Rate - Afr Amer 45 mL/min (>60); Estimated Creatinine Clearance 34.64 ml/min; Glucose 123 mg/dL (74-106); Phosphorus 3.9 mg/dL (2.5-4.9); Potassium 4.1 mmol/L (3.5-5.1); Sodium Level 147 mmol/L (136-145)
[2019-09-06] MEDS: Meclizine 12.5 MG Tablet PO (06:07)
[2019-09-06 06:33] LABS: Mucous, Urine 0 SEEN /hpf (<or=2+); Red Blood Cells-Urine 0 SEEN /hpf (0-5); Squamous Epithelial Cells - UA 0 SEEN /hpf (0-5); White Blood Cells 0 SEEN /hpf (0-5)
[2019-09-06 06:55] LABS: Bedside Glucose 130 mg/dL (70-110)
[2019-09-06 07:07] LABS: Color, Urine Yellow (Yellow); Glucose, Dipstick 50 mg/dl (Normal); Ketone-Dipstick Negative (Negative); Leukocyte Esterase-Dipstick Negative /ul (Negative); Nitrite-Dipstick Negative (Negative); Occult Blood-Urine Negative /ul (Negative); Protein-Dipstick 100 mg/dl (Negative); Specific Gravity, Urine 1.015 (1.002-1.030); Urine Bilirubin Dipstick Negative (Negative); Urine Clarity Clear (Clear); Urine Urobilinogen Normal (Normal)
[2019-09-06 07:14] LABS: Bacteria RARE /hpf (None Seen)
[2019-09-06] MEDS: Nystatin Powder 15gm Bottle 1 APPLIC TOPICAL ×2 (07:31→20:20)
[2019-09-06] MEDS: Menthol/Lanolin/Calamine/Znox 113 GM Tube 1 APPLIC TOPICAL ×2 (07:32→20:19)
[2019-09-06] MEDS: Lisinopril 5 MG Tablet PO (07:33)
[2019-09-06] MEDS: Pantoprazole Sodium 40 MG Tablet PO (07:34)
[2019-09-06] MEDS: Megestrol 40 MG Tablet PO ×2 (07:34→20:17)
[2019-09-06] MEDS: Finasteride 5 MG Tablet PO (07:34)
[2019-09-06] MEDS: Metoprolol Tartrate 50 MG Tablet PO ×2 (07:34→20:17)
[2019-09-06] MEDS: levETIRAcetam 500 MG Tablet PO ×2 (07:34→20:17)
[2019-09-06] MEDS: Tamsulosin HCl 0.4 MG Capsule PO ×2 (07:34→20:17)
[2019-09-06] MEDS: Senna/Docusate Sodium 1 Tablet 2 TABLET PO ×2 (07:34→20:16)
[2019-09-06] MEDS: Sertraline 100 MG Tablet PO (07:38)
--- NOTE | 2019-09-06 09:54 | CASEMGMT ---
Addendum entered by Cha Donnelly 09/06/19 12:51: Spoke with to discuss DC plans. agreeable to DC pt home, but works on 09/10 and requested DC 09/09 when she and her son can assist pt at home. Verbally provided list of [facility] agencies to . agreeable to [facility] and SW to assist with completing Medicaid application, and ongoing emotional support. Referral made to PT/OT/ST/SN/SW. IDT aware. Referral made to [facility] for FWW. Plan: DC home 09/09 with and family support with 24/7 supervision and [facility], FWW Original Note: Social Work IDT met with patient for Team Meeting. Discussed patient's progress in therapy. Pt is SBA for transfers, sitting to standing, SBA walking about 400 ft on multiple surfaces with FWW as left knee is weaker, completed 13 steps with 2 HR SBA. Physician and PT recommending a knee brace to help support left knee. Pt is SBA for all ADLs with encouragement to start tasks. ST states pt is more alert, orientated, better recall, pt has decreased insight to struggles and still recommending 24/7 supervision as pt has poor initiation at times to eat, drink and take medications. Pt agreeable to allow son to take over finances and no more driving. Appetite is improving, mood is improving, but still encouraging fluids. Pt and IDT agreeable to is ready to DC home 09/10 with [facility] PT/OT/ST/SN. No DME needs. Explained insurance update 09/06 and continued stay is not guaranteed. Left message with to discuss DC plans. Will continue to follow. Cha Donnelly, [employer] BENCH
--- NOTE | 2019-09-06 14:22 | PN_ITS ---
Progress Note Kris was seen on rounds today with the TEAM. No family present. Afebile VSS Maintaining appropriate oxygen saturation on RA Oral intake is better Discussed with nursing - no problems that need addressed Reviewed the PT/OT/ST notes Medication list reviewed. He remains on Protonix and Carafate. All lab was personally reviewed. The white blood cell count is within normal limits with an unremarkable differential. Hemoglobin is stable at 9.5. Platelets are within normal limits. Sodium is mildly increased at 147 and the chloride is 120 with a serum bicarb of 20. The BUN is 41 which is increasing but the creatinine has improved and is 1.92. Calcium is low at 8.1 and the albumin is pending. The UA shows 0 RBCs, 0 WBCs and was nitrite negative. He denies nausea/vomiting/abdominal pain/black tarry stool. He is having a normal bowel movement every day or every other day. He denies any symptoms of constipation. Denies chest pain, shortness of breath, palpitations. PHYSICAL EXAM: GENERAL: alert, oriented X 3, Cooperative, NAD ORAL: moist mucosa, no mucosal lesions NECK: No JVD, supple, trachea midline LUNGS: CTA, symmetric chest expansion HEART: RRR, Normal S1 and S2, no rub, no gallop ABDOMEN: soft, NT, ND, BS present, no guarding with palpation EXTREMITIES: no edema, no cyanosis, no calf tenderness SKIN: No rashes, no breakdown NEUROLOGIC: no focal neurologic deficits PSYCH: appropriate, normal affect, pleasant Impressions 1. Debility due to subdural hemorrhage, intracerebral hemorrhage, interv entricular hemorrhage and subarachnoid hemorrhage sustained in a fall while on warfarin. Progress and ST/OT/PT over the past 2 weeks is much better than prior to that. We have set a DC date for . 2. cough - resolved 3. Chronic renal failure stage III-recommend follow-up with nephrology post discharge. NADINE inhibitor to help protect his kidneys. 4. Diabetes mellitus type 4-atog-prdaiclxqz on no medication. 5. Depression-much improved on sertraline 100 mg p.o. daily started at admission. 6. Suspected upper GI bleed-possibly secondary to stress ulceration. Hemoglobin is stable on Carafate and Protonix. will recheck another hemoccult to see if it is negative....if it is still positive will recommend endoscopy at some point....HGB is stable so this could be done as an OP Will start an iron supplement given with Vitamin C 7. CAD with hx of CABG - has not been seeing cardiology since the Bypass.....I recommended he keep current with a pattern layout worker to PREVENT any problems going forward 8. Anemia secondary to blood loss 9. Urinary tract infection x2 in the rehab unit, 1 secondary to E. coli in the second instance secondary to pseudomonas aeruginosa. Recent UA negative for white blood cells or nitrites. Plan on DC for .....this is the day his can pick him up....she works on the day we designated which is Friday. OK with discharging . No driving after discharge. Will continue with therapy at home initially Code Visit Inpatient E&M: 90019 Subs Hosp L2
[2019-09-06 15:15] LABS: Albumin, Serum 2.3 g/dL (3.2-5.0)
[2019-09-06 17:16] LABS: Bedside Glucose 147 mg/dL (70-110)
[2019-09-06] MEDS: amLODIPine 10 MG Tablet PO (20:16)
[2019-09-06] MEDS: Atorvastatin Calcium 40 MG Tablet PO (20:16)
[2019-09-06] MEDS: MELATONIN 3 MG TABLET PO (20:17)
--- NOTE | 2019-09-06 23:13 | NURSING ---
1952 stool collected for occult blood as per order. sample sent at 1999 to the lab
[2019-09-07] VITALS (8 sets, daily range): BP systolic 130–154; BP diastolic 66–73; PULSE 64–78; RESP 16–18; TEMP 36.7; O2SAT 96–97
--- NOTE | 2019-09-07 02:17 | NURSING ---
REVIEWED AND AGREE WITH WELL DRILL OPERATOR DOCUMENTATION.
[2019-09-07] MEDS: hydrALAZINE 50 MG Tablet 100 MG PO ×3 (05:27→21:38)
[2019-09-07] MEDS: Acetaminophen 500 MG Tablet 1000 MG PO ×3 (05:28→21:37)
[2019-09-07] MEDS: Sucralfate 1 GM Tablet PO ×4 (05:28→21:38)
[2019-09-07 07:20] LABS: Bedside Glucose 129 mg/dL (70-110)
[2019-09-07] MEDS: Megestrol 40 MG Tablet PO ×2 (08:37→21:37)
[2019-09-07] MEDS: Lisinopril 5 MG Tablet PO (08:37)
[2019-09-07] MEDS: Metoprolol Tartrate 50 MG Tablet PO ×2 (08:37→21:37)
[2019-09-07] MEDS: Pantoprazole Sodium 40 MG Tablet PO (08:37)
[2019-09-07] MEDS: Sertraline 100 MG Tablet PO (08:37)
[2019-09-07] MEDS: levETIRAcetam 500 MG Tablet PO ×2 (08:38→21:38)
[2019-09-07] MEDS: Finasteride 5 MG Tablet PO (08:38)
[2019-09-07] MEDS: Tamsulosin HCl 0.4 MG Capsule PO ×2 (08:38→21:37)
[2019-09-07] MEDS: Nystatin Powder 15gm Bottle 1 APPLIC TOPICAL ×2 (08:38→21:39)
[2019-09-07] MEDS: Menthol/Lanolin/Calamine/Znox 113 GM Tube 1 APPLIC TOPICAL ×2 (08:38→21:39)
[2019-09-07] MEDS: Ferrous Sulfate 325 MG Tablet PO (13:17)
[2019-09-07] MEDS: Ascorbic Acid 500 MG Tablet PO (13:17)
[2019-09-07 16:51] LABS: Bedside Glucose 122 mg/dL (70-110)
[2019-09-07] MEDS: Atorvastatin Calcium 40 MG Tablet PO (21:37)
[2019-09-07] MEDS: Senna/Docusate Sodium 1 Tablet 2 TABLET PO (21:37)
[2019-09-07] MEDS: amLODIPine 10 MG Tablet PO (21:37)
[2019-09-07] MEDS: MELATONIN 3 MG TABLET PO (21:38)
[2019-09-08] VITALS (7 sets, daily range): BP systolic 136–139; BP diastolic 58–76; PULSE 67–70; RESP 16; TEMP 36.9–37; O2SAT 97
--- NOTE | 2019-09-08 01:17 | NURSING ---
Reviewed and agree with MENTAL HEALTH PROGRAM MANAGER documentation.
[2019-09-08] MEDS: Sucralfate 1 GM Tablet PO ×4 (06:42→20:22)
[2019-09-08] MEDS: Acetaminophen 500 MG Tablet 1000 MG PO ×3 (06:42→20:24)
[2019-09-08] MEDS: hydrALAZINE 50 MG Tablet 100 MG PO ×3 (06:42→20:22)
[2019-09-08 07:41] LABS: Bedside Glucose 119 mg/dL (70-110)
[2019-09-08] MEDS: Tamsulosin HCl 0.4 MG Capsule PO ×2 (08:29→20:22)
[2019-09-08] MEDS: Finasteride 5 MG Tablet PO (08:29)
[2019-09-08] MEDS: Megestrol 40 MG Tablet PO ×2 (08:30→20:23)
[2019-09-08] MEDS: Metoprolol Tartrate 50 MG Tablet PO ×2 (08:30→20:23)
[2019-09-08] MEDS: levETIRAcetam 500 MG Tablet PO ×2 (08:30→20:22)
[2019-09-08] MEDS: Pantoprazole Sodium 40 MG Tablet PO (08:31)
[2019-09-08] MEDS: Lisinopril 5 MG Tablet PO (08:31)
[2019-09-08] MEDS: Sertraline 100 MG Tablet PO (08:32)
[2019-09-08] MEDS: Menthol/Lanolin/Calamine/Znox 113 GM Tube 1 APPLIC TOPICAL ×2 (08:33→20:27)
[2019-09-08] MEDS: Nystatin Powder 15gm Bottle 1 APPLIC TOPICAL ×2 (08:33→20:27)
[2019-09-08] MEDS: Ascorbic Acid 500 MG Tablet PO (11:07)
[2019-09-08] MEDS: Ferrous Sulfate 325 MG Tablet PO (11:07)
[2019-09-08 16:45] LABS: Bedside Glucose 146 mg/dL (70-110)
[2019-09-08] MEDS: Atorvastatin Calcium 40 MG Tablet PO (20:23)
[2019-09-08] MEDS: amLODIPine 10 MG Tablet PO (20:24)
[2019-09-08] MEDS: MELATONIN 3 MG TABLET PO (20:24)
--- NOTE | 2019-09-09 01:50 | NURSING ---
Reviewed and agree with FOOD PORTER documentation.
[2019-09-09 05:21] VITALS: PULSE 74
[2019-09-09] MEDS: hydrALAZINE 50 MG Tablet 100 MG PO (05:21)
[2019-09-09] MEDS: Acetaminophen 500 MG Tablet 1000 MG PO (05:21)
[2019-09-09] MEDS: Sucralfate 1 GM Tablet PO ×2 (05:21→11:03)
[2019-09-09 06:46] LABS: Bedside Glucose 135 mg/dL (70-110)
[2019-09-09 07:52] VITALS: BP 147/71; PULSE 74
[2019-09-09] MEDS: Metoprolol Tartrate 50 MG Tablet PO (07:52)
[2019-09-09] MEDS: Tamsulosin HCl 0.4 MG Capsule PO (07:52)
[2019-09-09] MEDS: levETIRAcetam 500 MG Tablet PO (07:52)
[2019-09-09] MEDS: Pantoprazole Sodium 40 MG Tablet PO (07:53)
[2019-09-09] MEDS: Finasteride 5 MG Tablet PO (07:53)
[2019-09-09] MEDS: Megestrol 40 MG Tablet PO (07:53)
[2019-09-09] MEDS: Lisinopril 5 MG Tablet PO (07:54)
[2019-09-09] MEDS: Sertraline 100 MG Tablet PO (07:54)
[2019-09-09] MEDS: Menthol/Lanolin/Calamine/Znox 113 GM Tube 1 APPLIC TOPICAL (07:55)
[2019-09-09] MEDS: Nystatin Powder 15gm Bottle 1 APPLIC TOPICAL (07:55)
[2019-09-09 08:36] VITALS: BP 147/71; PULSE 74; RESP 16; TEMP 37; O2SAT 97
[2019-09-09] MEDS: Ascorbic Acid 500 MG Tablet PO (11:03)
[2019-09-09] MEDS: Ferrous Sulfate 325 MG Tablet PO (11:03)
--- NOTE | 2019-09-09 11:38 | PCM.DC ---
- Discharge Diagnoses Current Active Problems: Current Active and Chronic Problems (Last Reviewed 08/02/19 @ 07:57 by Radha Vega DO) Subdural hemorrhage (Acute) 07/22/19 Subarachnoid hemorrhage (Acute) 07/22/19 Intracerebral hemorrhage (Acute) 07/22/19 Closed intraventricular hemorrhage (Acute) 07/22/19 Cephalgia (Acute) due to recent intracerebral hemorrhage Left ventricular hypertrophy (Chronic) Diverticulosis (Chronic) Low vitamin D level (Chronic) Tobacco dependence in remission (Chronic) smoked for only 3 hours You will use the following diet at home:: Calorie/Carbohydrate Controlled (specify 1200, 1400, etc) - low carb, low fat diet Your food should be the consistency of: Regular Your liquids should be the consistency of: Regular/Thin Discharge Activity: May Not Drive - until released by neurology May resume sexual activity in: No Restrictions Weight Bearing Status: Full weight bearing Call your doctor if you observe: Fever of 101 or Higher, Inability to urinate, Inability to have a bowel movement, Shortness of breath, Dizziness, Fainting spells, Swelling in the ankles, Chest pain, Increased palpitations (irregular heartbeat), - - unilateral numbness or weakness, inability to swallow, changes in vision, facial droop, inability to get your words out/garbled speech Instructions: Effects of a Stroke on the Brain and Body, Symptoms of Stroke Additional Instructions: 1. You can start taking 1 baby aspirin a day in 1 week from today. 2. There is blood in your stool. I suspect it may be coming from the upper GI tract. We have you on 2 medications to treat ulcers. the medications are Protonix and Sucralfate. After taking these medications we checked the stool again and you still have blood in the stool. This is causing you to have a low blood count or anemia. Please discuss this with Dr. Martinez. I suspect he will refer you to 1 of the surgeons to have them take a look to find out where the bleeding is coming from. Do NOT take Mortrin or Advil or any other medications like this since they can cause ulcers. 3. You have a lot of vascular disease and you have had bypass surgery in the past. I think it would be an excellent idea to see a programs manager 1-2 times a year to make sure everything is good and controlled. 4. The diabetes has been well controlled in the hospital with no medications. I am not sending you home with medication. Check your blood sugar once a day and alternate before breakfast and before supper.......take your glucometer or a list of the results at your next visit with Dr. Garnica. 5. It has been a pleasure meeting you Kris. I hope you continue to do well for many years to come. Come by for a dance and a visit some day. You have been fun to be around. Pending Tests on Discharge: none Allergies/Adverse Reactions: Allergies No Known Allergies Allergy (Verified 07/22/19 15:28) Medications to take at Discharge Metoprolol Tartrate [Lopressor (beta ginny)] 50 mg PO BID 08/02/15 Atorvastatin Calcium [Lipitor] 40 mg PO QHS 07/22/19 Acetaminophen [Tylenol] 975 mg PO Q6H PRN PRN 07/29/19 Cholecalciferol (VIT D3) [Vitamin D3] 3,000 unit PO DAILY 07/29/19 Finasteride 5 mg PO DAILY 07/30/19 Melatonin 3 mg Tablet 6 mg PO QHS 07/30/19 Amlodipine [Norvasc] 10 mg PO QHS #30 tab 09/09/19 Ascorbic Acid [Vitamin C] 500 mg PO DAILY@1200 #30 tab 09/09/19 Ferrous Sulfate 325 mg PO DAILY@1200 #30 tab 09/09/19 Hydralazine HCl 100 mg PO Q8 #90 tab 09/09/19 Lisinopril [Zestril] 10 mg PO DAILY #30 tab 09/09/19 Pantoprazole Sodium [Protonix] 40 mg PO DAILY #30 tab 09/09/19 Polyethylene Glycol 3350 [Miralax] 17 gm PO DAILY #30 packet 09/09/19 Sertraline HCl [Zoloft] 100 mg PO DAILY #30 tab 09/09/19 Sucralfate [Carafate] 1 gm PO 1HR_ACHS #120 tab 09/09/19 Tamsulosin HCl [Flomax] 0.4 mg PO BID #60 cap 09/09/19 levETIRAcetam tablet [Keppra tablet] 500 mg PO BID #60 tab 09/09/19 The following prescriptions were given: Sucralfate [Carafate] 1 gm PO 1HR_ACHS #120 tab Transmission Status: Received by [facility] Ferrous Sulfate 325 mg PO DAILY@1200 #30 tab Transmission Status: Received by [facility] Tamsulosin HCl [Flomax] 0.4 mg PO BID #60 cap Transmission Status: Received by [facility]11 Hydralazine HCl 100 mg PO Q8 #90 tab Transmission Status: Sent to [facility]11 levETIRAcetam tablet [Keppra tablet] 500 mg PO BID #60 tab Transmission Status: Received by [facility] Polyethylene Glycol 3350 [Miralax] 17 gm PO DAILY #30 packet Transmission Status: Received by [facility]11 Amlodipine [Norvasc] 10 mg PO QHS #30 tab Transmission Status: Received by [facility]11 Pantoprazole Sodium [Protonix] 40 mg PO DAILY #30 tab Transmission Status: Received by [facility] Ascorbic Acid [Vitamin C] 500 mg PO DAILY@1200 #30 tab Transmission Status: Received by [facility] Lisinopril [Zestril] 10 mg PO DAILY #30 tab Transmission Status: Pending to [facility] Sertraline HCl [Zoloft] 100 mg PO DAILY #30 tab Transmission Status: Received by [facility] Primary Care Physician: Paul Martinez Chi, MD [Primary Care Provider] - Test Results: Test results from this visit will be discussed in further detail at your follow-up appointment, if applicable. Please Follow Up With: Paul Martinez MD When: Please Follow Up With: programs manager When: schedule an appt within the next couple months Please Follow Up With: Dr. Esteban When: neurosurgeon......within 2 weeks. Proposed Discharge Date: 09/09/19
[2019-09-09 12:40] VITALS: BP 147/71; PULSE 74; RESP 16; TEMP 37; O2SAT 97
--- NOTE | 2019-09-09 13:14 | NURSING ---
discharged home with . discharged instructions, medications and appointments reviewed with pt and . denies questions or concerns
--- NOTE | 2019-09-14 11:02 | DS.PCM_ITS ---
Discharge Date and Diagnosis Date of Admission: 07/30/19 Date of Discharge: 09/09/19 - Primary Discharge Diagnosis Debility due to acute hemorrhagic CVA Acute hemorrhagic CVA with SDH, SAH, IVH and ICH Complicated UTI's with E. Coli and Pseudomonas BPH with urine retention Cough secondary to ARB Depression Orthostatic hypotension Inanition Hemoccult positive stool Normochromic normocytic anemia Suspected iron deficiency - Secondary Discharge Diagnosis Chronic Problems (Last Reviewed 08/02/19 @ 07:57 by Radha Vega DO) BPH with obstruction/lower urinary tract symptoms (Chronic) Left ventricular hypertrophy (Chronic) Diverticulosis (Chronic) Low vitamin D level (Chronic) Tobacco dependence in remission (Chronic) smoked for only 3 years hx of APLL (Chronic) Left leg- 05/16/19 left superficial femoral artery and left popliteal artery angioplasty by Dr. Kamara History of angioplasty of peripheral vessel (Chronic ~2016) 01/01/16 L Peroneal and L superficial femoral A. angioplasty by Dr. Kamara History of angioplasty of peripheral vessel (Chronic ~2015) 11/24/18 R Peroneal, R Popliteal and R superficial A. Angioplasty by Dr. Kamara. HTN (hypertension) (Chronic) History of stroke (Chronic) Left parietal in August of 2017 Chronic kidney disease, stage 3 (Chronic) Peripheral vascular disease (Chronic) BL LE PVD - status post angioplasty on 3 occasions Status post coronary artery bypass graft (Chronic) 3 vessel CABG per pt in 2014? Diabetes mellitus, type 2 (Chronic) historically poorly controlled due to non-compliance GERD (gastroesophageal reflux disease) (Chronic) Hyperlipidemia (Chronic) CAD (coronary artery disease) (Chronic) Hospital Course and Treatment Imaging Results: Clinical Impression(s) from Imaging Studies Chest X-Ray 07/30/19 13:31 IMPRESSION: New posterior lower lobe infiltrate/atelectasis with a reduced inspiration from prior exam. Electronically Signed: Pauline Page MD at 17:11 EST , Service support , Chest X-Ray 08/06/19 14:07 IMPRESSION: No acute thoracic pathology. Electronically Signed: Chip Ortiz at 15:17 EST Tel , Service support , Microbiology 09/06/19 20:12 Stool Stool Occult Blood (MAYA) - Final Occult Blood Positive 09/01/19 14:00 Urine, Clean Catch Urine Culture - Final Culture exhibits no growth. 08/23/19 11:20 Stool Stool Occult Blood (MAYA) - Final Occult Blood Positive 08/20/19 13:40 Urine Catheter - Catheter Urine Culture - Final Pseudomonas aeroginosa 08/06/19 15:30 Urine Catheter - Mason Urine Culture - Final Escherichia coli none Operations: None Procedures: None Summary of Care Provided: The patient is a 68 year old M with a past medical history of peripheral vascular disease with angioplasties of the left lower extremity and right lower extremity by Dr. Kamara, hypertension, left parietal ischemic CVA in August 2017, chronic renal failure stage III, coronary artery disease, CABG x3 vessels in 2014?, GERD, hyperlipidemia, diverticulosis, vitamin D deficiency, tobacco dependence in remission and OA who was admitted to the inpatient rehab unit at [facility] on 07/30/2019 with debility secondary to hemorrhagic CVA with subdural hematoma, subarachnoid hemorrhage, IVH and intracerebral hemorrhage for greater than or equal to 3 hours of therapy daily to restore him at or near his prior level of independence. Patient was independent with driving, ADLs and mobility prior to admission to the inpatient rehab unit. He was quite debilitated at presentation to the unit. He was obtunded and very weak. He had had a CT of the head at [facility] the day prior to admission to the IPRU and there had been no change. He had a cough and a CXR was obtained and was reported by the radiologist as showing possible infiltrate vs atelectasis in the BL bases but, the coarse crackles improved with deep breaths and he was AF so we presumed the changes to be atelectasis. IS was ordered and nursing did this with him an a regular basis. A repeat CXR on 08/06/19 showed the lungs to be clear. The cough persisted and Cozaar was discontinued. The cough resolved. Appetite was poor and he became dehydrated and orthostatic. IV fluids were administered. He refused to eat the hospital food but ate fast food brought in by his family at times. He had a lack of motivation and progressed very slowly with therapy. His cognition and performance with speech was poor. We started to think maybe he had early dementia but family reported that prior to the stroke he was driving, picking up his grand kids at school at the appropriate time without being reminded and managing the finances with no cognitive problems. He was started on Sertraline for Depression. Progress with therapy continued to be slow until about the third week on the Sertraline and he suddenly was more alert, cooperative with therapy, joking with the staff and therapy progressed much better. He had a mason at presentation to the IPRU and been diagnosed ith BPH with urine retention at [facility]. He was on Flomax 0.4 mg daily when he came to the rehab unit. A voiding trial was done and he was retaining > 400cc's so the Mason was reinserted. A UA was obtained and grew E.Coli. He was treated with Keflex. Proscar was added to the drug regimen but, he continued to retain and the Flomax was increased to BID. Finally he was able to void without any significant retention. The WBC count increased and he had a low grade fever and a repeat urine culture was positive for pseudomonas. He was started on a fluoroquinolone and this was continued for 10 days. a follow up culture on 09/01 had no growth. He remained anemic throughout his stay in rehab and despite good oral intake of fluids the BUN was increased. A Hemoccult stool was positive. He denied any abdominal pain and had no melena. Carafate was added to the PPI. A repeat heme stool was checked prior to DC and was still positive. The HGB was stable at 9.5. Iron studies revealed a low iron but, the ferritin was 363. This may still be iron deficiency because ferritin is an acute phase reactant and also because he has CRF 3-4. He was started on an iron supplement. I recommended to him that he discuss the heme positive stools with his PCP and inquire whether endoscopy would be appropriate. He was discharged home from the inpt rehab unit on 09/09/19. Please see the med list on this DC summary. He is going to follow up with Dr. Martinez on 09/16/19 and will follow up with Dr. Esteban in 2 weeks. I also advised him to follow up with going forward because he had not been to see cardiology since the CABG. Alert, appropriate, cooperative, no apparent distress Mucous membranes are moist with no mucosal lesions Lungs-clear to auscultation with good air exchange Heart-regular rate and rhythm, normal S1, normal S2, no murmur, no gallop, no rub Abdomen-soft, nontender, nondistended, normal bowel sounds heard in all 4 quadrants, no guarding with palpation No peripheral edema This note was generated with [employer] dictation software. It may contain incorrect words, spelling, and punctuation that were not noted in checking the note before signing. - Physical Exam Vitals/I&O's: Vital Signs Temp Pulse Resp BP Pulse Ox 98.6 F 74 16 147/71 H 97 09/09/19 12:40 09/09/19 12:40 09/09/19 12:40 09/09/19 12:40 09/09/19 12:40 Oxygen Flow Rate (L/min) 2 Oxygen Delivery Method Room Air Weight: 163 lb 12.855 oz Body Mass Index (BMI) 29.0 Finger Stick Blood Glucose 480 Discharge Activity: May Not Drive - until released by neurology May resume sexual activity in: No Restrictions Weight Bearing Status: Full weight bearing Call your doctor if you observe: Fever of 101 or Higher, Inability to urinate, Inability to have a bowel movement, Shortness of breath, Dizziness, Fainting spells, Swelling in the ankles, Chest pain, Increased palpitations (irregular heartbeat), - - unilateral numbness or weakness, inability to swallow, changes in vision, facial droop, inability to get your words out/garbled speech Home Medications: Medications to take at Discharge Metoprolol Tartrate [Lopressor (beta ginny)] 50 mg PO BID 08/02/15 Atorvastatin Calcium [Lipitor] 40 mg PO QHS 07/22/19 Acetaminophen [Tylenol] 975 mg PO Q6H PRN PRN 07/29/19 Cholecalciferol (VIT D3) [Vitamin D3] 3,000 unit PO DAILY 07/29/19 Finasteride 5 mg PO DAILY 07/30/19 Melatonin 3 mg Tablet 6 mg PO QHS 07/30/19 Amlodipine [Norvasc] 10 mg PO QHS #30 tab 09/09/19 Ascorbic Acid [Vitamin C] 500 mg PO DAILY@1200 #30 tab 09/09/19 Aspirin [Aspir 81] 81 mg PO DAILY #30 tablet. 09/09/19 Ferrous Sulfate 325 mg PO DAILY@1200 #30 tab 09/09/19 Hydralazine HCl 100 mg PO Q8 #90 tab 09/09/19 Lisinopril [Zestril] 10 mg PO DAILY #30 tab 09/09/19 Pantoprazole Sodium [Protonix] 40 mg PO DAILY #30 tab 09/09/19 Polyethylene Glycol 3350 [Miralax] 17 gm PO DAILY #30 packet 09/09/19 Sertraline HCl [Zoloft] 100 mg PO DAILY #30 tab 09/09/19 Sucralfate [Carafate] 1 gm PO 1HR_ACHS #120 tab 09/09/19 Tamsulosin HCl [Flomax] 0.4 mg PO BID #60 cap 09/09/19 levETIRAcetam tablet [Keppra tablet] 500 mg PO BID #60 tab 09/09/19 Following Prescrptions Were Given to Patient: Aspirin [Aspir 81] 81 mg PO DAILY #30 tablet. Sucralfate [Carafate] 1 gm PO 1HR_ACHS #120 tab Transmission Status: Received by [facility] Ferrous Sulfate 325 mg PO DAILY@1200 #30 tab Transmission Status: Received by [facility] Tamsulosin HCl [Flomax] 0.4 mg PO BID #60 cap Transmission Status: Received by [facility] Hydralazine HCl 100 mg PO Q8 #90 tab Transmission Status: Received by [facility] levETIRAcetam tablet [Keppra tablet] 500 mg PO BID #60 tab Transmission Status: Received by [facility] Polyethylene Glycol 3350 [Miralax] 17 gm PO DAILY #30 packet Transmission Status: Received by [facility] Amlodipine [Norvasc] 10 mg PO QHS #30 tab Transmission Status: Received by [facility] Pantoprazole Sodium [Protonix] 40 mg PO DAILY #30 tab Transmission Status: Received by [facility] Ascorbic Acid [Vitamin C] 500 mg PO DAILY@1200 #30 tab Transmission Status: Received by [facility] Lisinopril [Zestril] 10 mg PO DAILY #30 tab Transmission Status: Received by [facility] Sertraline HCl [Zoloft] 100 mg PO DAILY #30 tab Transmission Status: Received by [facility] Primary Care Physician: Paul Martinez Chi, MD [Primary Care Provider] - Please Follow Up With: Paul Martinez MD When: Please Follow Up With: subscription crew leader-Dr Mccray When: schedule an appt within the next couple months Please Follow Up With: Dr. Esteban When: neurosurgeon......within 2 weeks. Please Follow Up With: Dr Lance Reese When: Nephrology.....within 2 weeks Patient Instructions: Effects of a Stroke on the Brain and Body, Symptoms of Stroke Disposition: Home with Home Health Minutes spent on discharge:: 45 Patient Condition:: Good Medical Necessity - Tobacco Use Smoking Status: Former smoker Tobacco Use: Non-smoker Meaningful Use Info Meaningful Use Diagnoses (Choose all that apply): Hemorrhagic CVA - CVA Therapy Assessed for PT,OT and/or ST?: Yes Code Visit Inpatient E&M: 14113 Disch Hosp
== END 2019-09-09 12:50 | disposition home health service (06) | DRG 949 ==
PROVIDERS: Admitting Provider Internal Medicine; Family Provider Family Medicine Geriatric Medicine; PCP Family Medicine Geriatric Medicine
DX: S06.6X9D Traumatic subarachnoid hemorrhage with loss of consciousness of unspecified duration, subsequent encounter (principal); D62 Acute posthemorrhagic anemia; N39.0 Urinary tract infection, site not specified; K92.2 Gastrointestinal hemorrhage, unspecified; S06.5X9D Traumatic subdural hemorrhage with loss of consciousness of unspecified duration, subsequent encounter; W19.XXXD Unspecified fall, subsequent encounter; E78.5 Hyperlipidemia, unspecified; T83.518D Infection and inflammatory reaction due to other urinary catheter, subsequent encounter; I25.10 Atherosclerotic heart disease of native coronary artery without angina pectoris; I12.9 Hypertensive chronic kidney disease with stage 1 through stage 4 chronic kidney disease, or unspecified chronic kidney disease; N18.3 Chronic kidney disease, stage 3 (moderate); E11.22 Type 2 diabetes mellitus with diabetic chronic kidney disease; E11.51 Type 2 diabetes mellitus with diabetic peripheral angiopathy without gangrene; K21.9 Gastro-esophageal reflux disease without esophagitis; E11.65 Type 2 diabetes mellitus with hyperglycemia; Z95.1 Presence of aortocoronary bypass graft; Z91.19 Patient's noncompliance with other medical treatment and regimen; Z87.891 Personal history of nicotine dependence; E55.9 Vitamin D deficiency, unspecified; F32.9 Major depressive disorder, single episode, unspecified; B96.20 Unspecified Escherichia coli [E. coli] as the cause of diseases classified elsewhere; B96.5 Pseudomonas (aeruginosa) (mallei) (pseudomallei) as the cause of diseases classified elsewhere; I95.1 Orthostatic hypotension; N40.1 Benign prostatic hyperplasia with lower urinary tract symptoms; R33.8 Other retention of urine
CPT/HCPCS: 36415; 71046; 80048; 80053; 80069; 81001; 82040; 82274; 82607; 82728; 82962; 83036; 83540; 83550; 83735; 84100; 85014; 85018; 85025; 85027; 85652; 85730; 86038; 86140; 86225; 86235; 86592; 87077; 87086; 87088; 87186; 92507; 92523; 92526; 92610; 97110; 97112; 97116; 97162; 97166; 97530; 97535; 97802; 97803; 99251; A4216; G0463

== ENCOUNTER → 2019-10-04 13:57 | Outpatient (CLI) | payer MEDICARE, SELFPAY ==
[2019-07-29 21:00] VITALS: BMI 29.0
[2019-10-04 17:43] LABS: Absolute Lymphocyte Count 1.53 X10^3/uL (0.83-4.51); Absolute Neutrophil Count 5.5 X10^3/uL (2.0-7.7); Basophil# 0.05 X10^3/uL; Basophil% 0.6 % (0-1); Eosinophil# 0.35 X10^3/uL; Eosinophils% 4.3 % (0-5); Hematocrit 38.6 % (40-54); Hemoglobin 12.5 g/dL (13.0-16.5); Lymphocyte # 1.53 X10^3/ul (4.0); Lymphocyte % 18.9 % (19-41); Mean Corp Hgb Conc 32.4 g/dL (32-36); Mean Corpuscular Hgb 27.6 pg (27.0-32.0); Mean Corpuscular Volume 85.2 fL (80-94); Mean Platelet Vol. 9.9 fl (6.2-12.0); Monocyte# 0.68 X10^3/uL; Monocyte% 8.4 % (0-10); NRBC Flagged by Analyzer 0 % (0-5); Neutrophil # 5.45 X10^3/uL (2.7-7.7); Neutrophil % 67.4 % (47-70); Platelet Count 303 K/mm3 (150-450); RBC Distribution Width CV 14.3 % (11.6-14.6); Red Blood Count 4.53 M/mm3 (4.6-6.2); White Blood Count 8.1 K/mm3 (4.4-11.0)
[2019-10-04 18:13] LABS: ALB/GLOB Ratio 0.6 RATIO (0.9-2.4); AST(SGOT) 15 U/L (15-37); Alanine Aminotransfer ALT/SGPT 20 U/L (16-61); Albumin, Serum 2.5 g/dL (3.2-5.0); Alkaline Phosphatase 110 U/L (45-117); Anion Gap 7 (5-15); BUN 15 mg/dL (7-18); BUN/Creat Ratio 8.2 RATIO (10-20); Calcium,Total 8.7 mg/dL (8.5-10.1); Chloride 109 mmol/L (98-107); Cholesterol 283 mg/dL (200); Creatinine, Serum 1.82 mg/dL (0.70-1.30); EST Glomerular Filtration Rate 39 mL/min (>60); Est Glom Filt Rate - Afr Amer 48 mL/min (>60); Globulin 3.9 g/dL (2.2-4.2); Glucose 209 mg/dL (74-106); High Density Lipoprotein 35 mg/dL; PSA,Total - Annual Screen 0.83 ng/mL (0.00-4.00); Potassium 3.2 mmol/L (3.5-5.1); Protein, Total 6.4 g/dL (6.4-8.2); Sodium Level 143 mmol/L (136-145); Thyroid Stim Hormone (TSH) 1.56 uIU/mL (0.358-3.74); Triglycerides 503 mg/dL
[2019-10-05 09:15] LABS: Vitamin D,25 Hydroxy 22.6 ng/mL
== END ==
PROVIDERS: PCP Family Medicine Geriatric Medicine; Visit Provider Family Medicine Geriatric Medicine
DX: E11.9 Type 2 diabetes mellitus without complications (principal); Z12.5 Encounter for screening for malignant neoplasm of prostate; E55.9 Vitamin D deficiency, unspecified; E78.5 Hyperlipidemia, unspecified; F52.8 Other sexual dysfunction not due to a substance or known physiological condition; I10 Essential (primary) hypertension
CPT/HCPCS: 36415; 80053; 80061; 82306; 84153; 84403; 84443; 85025; G0103

== ENCOUNTER → 2019-10-12 16:40 | Outpatient (CLI) | payer MEDICARE, SELFPAY ==
[2019-07-29 21:00] VITALS: BMI 29.0
== END ==
PROVIDERS: PCP Family Medicine Geriatric Medicine; Visit Provider Family Medicine Geriatric Medicine
DX: N39.0 Urinary tract infection, site not specified (principal)
CPT/HCPCS: 87086; 87088

== ENCOUNTER → 2020-04-25 10:01 | Outpatient (CLI) | payer MEDICARE, SELFPAY ==
[2019-07-29 21:00] VITALS: BMI 29.0
--- NOTE | 2020-04-25 10:03 | VDUE_ITS ---
Reason For Study: ESRD Right Arm Left Arm Right cephalic vein is compressible. Left cephalic vein is compressible. Right Cephalic Vein at the shoulder Left Cephalic Vein at the shoulder measures .16 x .2 cm. measures .11 x .11 cm. Right Cephalic Vein mid bicep measures .15 Left Cephalic Vein at mid bicep measures .1 x .14 cm. x .08 cm. Right Cephalic Vein above antecub Left Cephalic Vein above antecub measures .15 measures .12 x .14 cm. x .16 cm. Right Cephalic Vein below antecub Left Cephalic Vein below antecub measures .13 measures .12 x .12 cm. x .13 cm. Right Cephalic Vein in the forearm Left Cephalic Vein in the forearm measures .19 x .2 cm. measures .15 x .14 cm. Right Cephalic Vein at the wrist measures .17 Left Cephalic Vein at the wrist measures .12 x .19 cm. x .11 cm. Right basilic vein is compressible. Left basilic vein is compressible. Right Basilic Vein mid bicep measures .28 Basilic vein at bicep measures .21 x .22 cm. x .33 cm. Basilic vein above antecub measures .25 x .24 Right Basilic Vein above antecub measures .25 cm. x .28 cm. Basilic vein below antecub measures .07 x .08 Right Basilic Vein below antecub measures .07 cm. x .11 cm. Basilic vein in the forearm measures .06 Right Basilic Vein in the forearm measures .1 x .07 cm. x .12 cm. Basilic vein at the wrist measures .08 x .09 Right Basilic Vein at the wrist measures .09 cm. x .12 cm. Brachial Art .36 x .4 cm. Brachial Art .41 x .44 cm. Brachial Art 99.0 cm/s. Brachial Art 82.0 cm/s. Radial Art .28 x .31 cm. Radial Art .2 x .2 cm. Radial Art 105.5 cm/s. Radial Art 89.8 cm/s. Interpretation Summary Diminutive bilateral cephalic veins as noted Borderline bilateral upper arm basilic veins Bilateral brachial and radial arteries with normal diameter and flow Ordering Physician: Mainor Izquierdo Performed By: Reynaldo Andres RVT ?
== END ==
PROVIDERS: PCP Family Medicine Geriatric Medicine; Referring Provider Internal Medicine Nephrology; Visit Provider Internal Medicine Nephrology
DX: Z01.818 Encounter for other preprocedural examination (principal); N18.6 End stage renal disease
CPT/HCPCS: 93970; 93985

== ENCOUNTER 2020-05-26 14:15 | Observation (INO) | payer MEDICARE, SELFPAY ==
[2020-05-23 13:22] VITALS: BMI 23.4
[2020-05-26] VITALS (10 sets, daily range): BP systolic 117–160; BP diastolic 50–78; PULSE 65–98; RESP 13–33; TEMP 36.2–36.9; O2SAT 91–99; BMI 23.4; BMI 23.0
--- NOTE | 2020-05-26 14:52 | EKG12_ITS ---
Test Reason : ILLNESS Blood Pressure : / mmHG Vent. Rate : 083 BPM Atrial Rate : 084 BPM P-R Int : 000 ms QRS Dur : 144 ms QT Int : 476 ms P-R-T Axes : 000 270 005 degrees QTc Int : 559 ms Sinus Rhythm with 1st degree AV block Right bundle branch block Inferior infarct , age undetermined Abnormal ECG Confirmed by BRYAN SARMIENTO, SATNAM ([id number]), editor publications SELVIN MATUTE ([id number]) on 06/09/2020 9:48:57 A M Referred By: VELMA Confirmed By:JAEL ADAMS MD
--- NOTE | 2020-05-26 14:54 | ED.VIS.GEN ---
History of Present Illness Chief Complaint: Syncope Informant: Patient, [employer], - - Report from dialysis unit Onset: Hours Context: Sudden Onset Quality: Near syncope and aspirated on dentures Location: Associated Current Severity: - - Unable to determine Maximum Severity: - - Unable to determine Worsened by: Unknown Relieved by: Unknown Associated Symptoms: Cough and altered level of consciousness Narrative: Patient is an elderly male with muscle medical problems who presents from dialysis after syncope near syncope with near expiration swallowing of his dentures. He has not been himself since. When nurse entered the room he asked for help because he feels terrible and sick. When I entered room and asked why he is here he states he feels terrible. Patient is not a good informant. He needs continuous stimulation to answer few questions at best. Unable to obtain much more. Prior similar symptoms: No Recent Illness/Hospitalization: No - Past Medical History (1) Depression Status: Acute (2) Intracerebral hemorrhage Status: Resolved Comment: 07/22/19 (3) Subarachnoid hemorrhage Status: Resolved Comment: 07/22/19 (4) Subdural hemorrhage Status: Resolved Comment: 07/22/19 (5) BPH with obstruction/lower urinary tract symptoms Status: Chronic (6) CAD (coronary artery disease) Status: Chronic (7) Chronic renal failure, stage 5 Status: Chronic (8) Diabetes mellitus, type 2 Status: Chronic Comment: historically poorly controlled due to non-compliance (9) GERD (gastroesophageal reflux disease) Status: Chronic (10) History of angioplasty of peripheral vessel Status: Chronic Comment: 11/24/18 R Peroneal, R Popliteal and R superficial A. Angioplasty by Dr. Kamara. Past Medical History - Allergies and Home Meds Allergies/Adverse Reactions: Allergies No Known Allergies Allergy (Verified 05/23/20 13:23) Primary Care Physician: Paul Martinez Chi, MD [Primary Care Provider] - Prior records reviewed: Yes Surgical History: coronary bypass surgery, - - Benign soft tissue tumor resection, CABG x 3, PCI x 1, BL tunnel surgery, bilateral lower extremity venous intervention unclear type. Lives: Alone Smoking Status: Former smoker Drugs: - - Unknown - Family History Maternal Family History: Family History (Last Reviewed 05/23/20 @ 13:25 by Leola Bhagat) Brother Diabetes Mother Hypertension Daughter Diabetes Family History: Reports: - - Patient notes that his mother was healthy and denies any history of heart disease, diabetes or cancer, passed at age 93. Paternal Family History: Family History (Last Reviewed 05/23/20 @ 13:25 by Leola Bhagat) Brother Diabetes Mother Hypertension Daughter Diabetes Family History: Reports: - - Patient notes that his father was healthy with no history of heart disease, diabetes or cancer, passed at age 89 secondary to brain aneurysm rupture. Review of Systems ROS: Unable to Obtain - Patient states he does not feel well. Physical Exam Vital Signs/Narrative: Vital Signs Temp Pulse Resp BP Pulse Ox 05/26/20 14:16 97.1 F L 74 18 160/77 H 91 General: Well nourished, Well developed Head: Normocephalic, Atraumatic Eyes: Perrl, EOMI. Negative for: Pale conjunctiva, Scleral icterus ENT: No rhinorrhea Neck: Supple, Nontender, No lymphadenopathy, No JVD Cardiovascular: Regular rate, Regular rhythm, No murmurs, Normal S1, Normal S2 Respiratory: Chest nontender, Rales - Nodes bilaterally over the right and left lobe posteriorly. Patient with persistent nonproductive moist cough., Diminished, - - Well-healed midsternal incision.. Negative for: No distress, CTA bilaterally Abdomen: Soft, Nontender, Nondistended, Normal bowel sounds Rectal: Deferred Back: Nontender Extremities: Nontender Skin: Normal color, No rash Neurological: Cranial nerves II-XII grossly intact, Normal Strength, Normal Sensation. Negative for: Alert, Oriented x3, Normal Gait Psychological: - - To determine Diagnostic/Tx/Re-eval Chest X-Ray - ED: 2 View, Normal, Mediastinum, Bony Structures, No Acute Disease, Chronic Changes, - - 2 view x-ray interpreted by [facility] at 1523. Vas-Cath/line noted right side. Minimal chronic changes. Cardiac silhouette size normal. Also structures normal. Hilum is unremarkable. 05/26/20 15:15 Chest PA and Lateral [RAD] Stat Laboratory Results 05/26/20 05/26/20 05/26/20 15:00 15:00 15:00 WBC 8.7 RBC 3.89 L Hgb 11.4 L Hct 35.7 L MCV 91.8 MCH 29.3 MCHC 31.9 L RDW Std Deviation 45.3 H RDW Coeff of Arturo 13.5 Plt Count 242 MPV 9.7 Immature Gran % (Auto) 0.500 Neut % (Auto) 68.6 Lymph % (Auto) 22.0 [place] % (Auto) 4.9 Eos % (Auto) 3.7 Baso % (Auto) 0.3 Absolute Neuts (auto) 6.0 Absolute Lymphs (auto) 1.92 Nucleated RBC % 0 Sodium 141 Potassium 3.8 Chloride 103 Carbon Dioxide 33.0 H Anion Gap 5 BUN 28 H Creatinine 3.93 H Estim Creat Clear Calc 16.68 Est GFR (MDRD) Af Amer 20 L Est GFR (MDRD) Non-Af 16 L BUN/Creatinine Ratio 7.1 L Glucose 147 H Lactic Acid 1.5 Calcium 8.5 POC Glucose 05/26/20 15:03 WBC RBC Hgb Hct MCV MCH MCHC RDW Std Deviation RDW Coeff of Arturo Plt Count MPV Immature Gran % (Auto) Neut % (Auto) Lymph % (Auto) [place] % (Auto) Eos % (Auto) Baso % (Auto) Absolute Neuts (auto) Absolute Lymphs (auto) Nucleated RBC % Sodium Potassium Chloride Carbon Dioxide Anion Gap BUN Creatinine Estim Creat Clear Calc Est GFR (MDRD) Af Amer Est GFR (MDRD) Non-Af BUN/Creatinine Ratio Glucose Lactic Acid Calcium POC Glucose 141 H - EKG Initial EKG Interpretation: - - Ventricular is 83. Patient has either a very prolonged LA interval or junctional rhythm. There appears to be a delta wave in V1. There is an RR prime in V2. QT interval is 476 ms with a QTC of 559. [place] is to the right. - Medical Decision Making With altered mental status and history of possible aspiration will obtain chest x-ray, appropriate blood work and if there is no cause to explain patient's altered mental status will obtain CT of the head since he has history of subdural as well as subarachnoid hemorrhage. Patient had frequent falls. He moved from [place]. He was told he would be a direct placement to [facility], [place]. When he arrived at [facility] [place] he was told he did not qualify. He has been living with his daughter the past week or 2 since moving from [place]. He has had frequent falls. He feels too weak. Daughter states she works and she is not able to care for him. Case management was consulted. She informed me that he does want to be placed into a nursing facility. Therefore will have hospitalist bring patient in until he is placed since he is unsafe to stay at home unattended. ED Disposition - Plan for ED Patient: Disposition: Acute Care [facility] Diagnosis: Aspiration into airway, Frequent falls, Generalized weakness, End-stage renal disease on hemodialysis Referrals: Paul Martinez Chi, MD [Primary Care Provider] -
[2020-05-26 15:15] LABS: Absolute Lymphocyte Count 1.92 X10^3/uL (0.83-4.51); Basophil# 0.03 X10^3/uL; Basophil% 0.3 % (0-1); Eosinophil# 0.32 X10^3/uL; Eosinophils% 3.7 % (0-5); Hematocrit 35.7 % (40-54); Hemoglobin 11.4 g/dL (13.0-16.5); Lymphocyte # 1.92 X10^3/ul (4.0); Mean Corp Hgb Conc 31.9 g/dL (32-36); Mean Corpuscular Hgb 29.3 pg (27.0-32.0); Mean Corpuscular Volume 91.8 fL (80-94); Mean Platelet Vol. 9.7 fl (6.2-12.0); Monocyte# 0.43 X10^3/uL; Monocyte% 4.9 % (0-10); NRBC Flagged by Analyzer 0 % (0-5); Neutrophil # 5.99 X10^3/uL (2.7-7.7); Neutrophil % 68.6 % (47-70); Platelet Count 242 K/mm3 (150-450); RBC Distribution Width CV 13.5 % (11.6-14.6); RBC Distribution Width SD 45.3 fl (35.1-43.9); Red Blood Count 3.89 M/mm3 (4.6-6.2); White Blood Count 8.7 K/mm3 (4.4-11.0)
[2020-05-26 15:15] LABS: Bedside Glucose 141 mg/dL (70-110)
--- NOTE | 2020-05-26 15:15 | RAD_ITS ---
STUDY: X-RAY CHEST REASON FOR EXAM: Male, 69 years old. syncopal episode during dialysis TECHNIQUE: PA and lateral views of the chest. COMPARISON: 08/06/2019 FINDINGS: EKG leads overlie the chest. Right dialysis catheter tip in the distal SVC. No complications The lungs are clear and expanded. There is no demonstrated pleural abnormality. Sternal cerclage wires and vascular clips are present from a prior sternotomy and coronary artery bypass graft procedure (CABG). Normal mediastinum and job. Normal visualized pulmonary arteries. Normal visualized aortic arch and descending thoracic aorta. There are diffuse degenerative changes of the visualized thoracic spine. Normal visualized ribs, clavicles, and shoulders. There is no demonstrated abnormality of the visualized soft tissue structures of the upper abdomen. RAD/Chest PA and Lateral IMPRESSION: No acute pulmonary process Electronically Signed: Cristian Ennis MD at 16:35 EDT , Service support ,
[2020-05-26 15:43] LABS: Lactic Acid 1.5 mmol/L (0.4-1.9)
[2020-05-26 15:47] LABS: Anion Gap 5 (5-15); BUN 28 mg/dL (7-18); BUN/Creat Ratio 7.1 RATIO (10-20); Calcium,Total 8.5 mg/dL (8.5-10.1); Chloride 103 mmol/L (98-107); Creatinine, Serum 3.93 mg/dL (0.70-1.30); EST Glomerular Filtration Rate 16 mL/min (>60); Est Glom Filt Rate - Afr Amer 20 mL/min (>60); Estimated Creatinine Clearance 16.68 ml/min; Glucose 147 mg/dL (74-106); Potassium 3.8 mmol/L (3.5-5.1); Sodium Level 141 mmol/L (136-145)
--- NOTE | 2020-05-26 18:31 | PCM.HP.STD ---
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 (10) Diabetes mellitus, type 2 Status: Chronic Qualifiers: Diabetes mellitus shelter insulin use: without long lines operator use Diabetes mellitus complication status: with circulatory complication Diabetes mellitus complication detail: with other circulatory complications Qualified Code(s): E11.59 - Type 2 diabetes mellitus with other circulatory complications Comment: historically poorly controlled due to non-compliance (11) GERD (gastroesophageal reflux disease) Status: Chronic Qualifiers: Esophagitis presence: esophagitis presence not specified Qualified Code(s): K21.9 - Gastro-esophageal reflux disease without esophagitis (12) Hyperlipidemia Status: Chronic Qualifiers: Hyperlipidemia type: pure hypercholesterolemia Qualified Code(s): E78.00 - Pure hypercholesterolemia, unspecified; E78.0 - Pure hypercholesterolemia (13) CAD (coronary artery disease) Status: Chronic Qualifiers: Coronary Disease-Associated Artery/Lesion type: unspecified vessel or lesion type [place] vs. transplanted heart: unspecified whether [place] or transplanted heart Associated angina: angina presence unspecified Qualified Code(s): I25.10 - Atherosclerotic heart disease of [place] coronary artery without angina pectoris History of Present Illness Date of Admission: 05/26/20 Chief Complaint: Reported near syncope, weakness. The patient is a 69 year old M with past medical history as mentioned above presented to the emergency room because of reported near syncopal episode and weakness. Patient is a poor informant and was not able to provide detailed history but was able to answer some questions. He mentioned that he went to dialysis today and after dialysis, he felt very weak, tired and he had an episode when he was about to swallow his dentures and started coughing. He has been coughing since this morning, dry cough no sputum production. He denied shortness of breath, fever or chills. He denied chest pain, palpitation, loss of consciousness. He denies significant trauma. He had a history of ESRD on hemodialysis on Mondays, Wednesdays and Fridays. He has history of type 2 diabetes mellitus, has been on insulin and hemoglobin A1c was 6.9% on July,. History of hypertension and he has been on Norvasc, hydralazine and torsemide. In the emergency department, his blood pressure was slightly elevated and then improved, other vital signs were stable. Routine blood work was remarkable for chronic anemia, BUN of 28, creatinine is 3.93. EKG revealed normal sinus rhythm, RBBB, prolonged QTC, no acute changes. Lactic acid was normal. Chest x-ray showed no acute findings. He is being admitted for reported near syncopal episode, recurrent falls, physical debility and functional decline for placement. Past Medical History Past Medical History (Chronic Problems): Chronic Problems (Last Reviewed 05/26/20 @ 18:[address] Kathia Barney MD) End stage renal disease on dialysis (Chronic) Depression (Chronic) BPH with obstruction/lower urinary tract symptoms (Chronic) Left ventricular hypertrophy (Chronic) Diverticulosis (Chronic) Tobacco dependence in remission (Chronic) smoked for only 3 hours hx of APLL (Chronic) Left leg- 05/16/19 left superficial femoral artery and left popliteal artery angioplasty by Dr. Kamara History of angioplasty of peripheral vessel (Chronic ~2016) 01/01/16 L Peroneal and L superficial femoral A. angioplasty by Dr. Kamara HTN (hypertension) (Chronic) History of stroke (Chronic) Left parietal in August of 2017 Peripheral vascular disease (Chronic) BL LE PVD - status post angioplasty on 3 occasions Status post coronary artery bypass graft (Chronic) 3 vessel CABG per pt in 2014? Diabetes mellitus, type 2 (Chronic) historically poorly controlled due to non-compliance GERD (gastroesophageal reflux disease) (Chronic) Hyperlipidemia (Chronic) CAD (coronary artery disease) (Chronic) Medical History: Medical History (Last Reviewed 05/26/20 @ 18:[address] Kathia Barney MD) Depression (Chronic) F32.9 BPH with obstruction/lower urinary tract symptoms (Chronic) N40.1, N13.8 Left ventricular hypertrophy (Chronic) I51.7 Diverticulosis (Chronic) K57.90 Tobacco dependence in remission (Chronic) F17.201 smoked for only 3 hours HTN (hypertension) (Chronic) I10 History of stroke (Chronic) Z86.73 Left parietal in August of 2017 Peripheral vascular disease (Chronic) I73.9 BL LE PVD - status post angioplasty on 3 occasions Diabetes mellitus, type 2 (Chronic) E11.9 historically poorly controlled due to non-compliance GERD (gastroesophageal reflux disease) (Chronic) K21.9 Hyperlipidemia (Chronic) E78.5 CAD (coronary artery disease) (Chronic) I25.10 Intracerebral hemorrhage (Inactive) I61.9 07/22/19 Subdural hemorrhage (Inactive) I62.00 07/22/19 Fatigue R53.83 Heart disease I51.9 Closed intraventricular hemorrhage (Inactive) I61.5 07/22/19 Allergies No Known Allergies Allergy (Verified 05/23/20 13:23) Home Medications: Ambulatory Orders Medication Instructions Recorded Finasteride 5 mg PO DAILY 07/30/19 Ascorbic Acid [Vitamin C] 500 mg PO DAILY@1200 #30 tab 09/09/19 Ferrous Sulfate 325 mg PO DAILY@1200 #30 tab 09/09/19 Pantoprazole Sodium [Protonix] 40 mg PO DAILY #30 tab 09/09/19 Tamsulosin HCl [Flomax] 0.4 mg PO BID #60 cap 09/09/19 Amlodipine [Norvasc] 5 mg PO DAILY 05/26/20 Aspirin [Aspirin, Baby] 81 mg PO DAILY@0800 05/26/20 Atorvastatin Calcium 80 mg PO DAILY 05/26/20 Cholecalciferol (Vitamin D3) 2,000 unit PO DAILY 05/26/20 [Vitamin D3] Hydralazine HCl 50 mg PO TID 05/26/20 Insulin Glargine,Hum.rec.anlog 10 unit SQ BREAKFAST 05/26/20 [Lantus Solostar] Torsemide 100 mg PO DAILY 05/26/20 levETIRAcetam tablet [Keppra 500 mg PO BID 05/26/20 tablet] Surgical History: Surgical History (Last Updated 05/26/20 @ 18:[address] Kathia Barney MD) hx of APLL (Chronic) Left leg- 05/16/19 left superficial femoral artery and left popliteal artery angioplasty by Dr. Kamara History of angioplasty of peripheral vessel (Chronic) Onset Date: ~2016 Z98.62 01/01/16 L Peroneal and L superficial femoral A. angioplasty by Dr. Kamara Status post coronary artery bypass graft (Chronic) Z95.1 3 vessel CABG per pt in 2014? Surgical History: coronary bypass surgery, - - Benign soft tissue tumor resection, CABG x 3, PCI x 1, BL tunnel surgery, bilateral lower extremity venous intervention unclear type. Psychiatric History: No pertinent psych hx Lives: With Family Smoking Status: Former smoker Drugs: - - *Family History Maternal Family History: Family History (Last Reviewed 05/26/20 @ 18:[address] Kathia Barney MD) Brother Diabetes Mother Hypertension Daughter Diabetes History Items: - - Patient notes that his mother was healthy and denies any history of heart disease, diabetes or cancer, passed at age 93. Paternal Family History: Family History (Last Reviewed 05/26/20 @ 18:[address] Kathia Barney MD) Brother Diabetes Mother Hypertension Daughter Diabetes History Items: - - Patient notes that his father was healthy with no history of heart disease, diabetes or cancer, passed at age 89 secondary to brain aneurysm rupture. Review of Systems Constitutional: Reports: Anorexia, Weakness, Fatigue. Denies: Chills, Fever Eyes: Denies: Blurred vision, Double vision, Drainage, Redness HEENT: Denies: Difficulty Hearing, Ear Pain, Eye Pain, Nasal Congestion, Sore Throat Cardiovascular: Denies: Chest Pain, Chest Tightness, Edema, Heaviness, Light Headedness, Orthopnea, Palpitations Respiratory: Denies: Cough, Pleuritic Pain, Shortness of Breath, Sputum production, Wheezing Gastrointestinal: Denies: Abdominal Pain, Constipation, Diarrhea, Nausea, Vomiting Genitourinary: Denies: Dysuria, Frequency, Hematuria Musculoskeletal: Denies: Arm Pain, Back Pain, Foot Pain Skin: Denies: Dryness, Rash Neurological: Denies: Balance problems, Double vision, Change in Speech, Slurred speech, Confusion, Headaches, Incoordination, Numbness Psychiatric: Reports: Depression. Denies: Anxiety Endocrine: Denies: Change in Body Habitus, Polydipsia, Polyuria VTE Information - Inpt Only VTE Present on Admission: No VTE Mechan Device Prophylaxis: None VTE Pharm Prophylaxis ordered?: Yes Patient Problems: Active and Suspected Problems (Last Reviewed 05/26/20 @ 18:[address] Kathia Barney MD) Debility (Acute) Frequent falls (Acute) - Physical Exam Vitals/I&O's: Vital Signs Temp Pulse Resp BP Pulse Ox 97.1 F L 82 33 H 117/68 93 05/26/20 14:16 05/26/20 17:15 05/26/20 17:15 05/26/20 17:15 05/26/20 17:15 Oxygen Delivery Method Room Air Weight: 154 lb 0.002 oz Body Mass Index (BMI) 23.4 Finger Stick Blood Glucose 480 General: Alert, Oriented x3, Cooperative, No apparent distress HEENT: Atraumatic, PERRLA, EOMI, Normocephalic Oral: Moist Mucosa, No Gingival or Mucosal Lesions/ Ulcerations Neck: Supple, No JVD, Negative Carotid Bruits, Trachea Midline, Thyroid Normal Size and Texture Lungs: Clear to auscultation, Normal air movement, No rhonchi, No wheeze, No rales, Diminished Cardiovascular: Regular rate, Regular Rhythm, Normal S1, Normal S2, PMI Normal Abdomen: Bowel Sounds Present, Soft, Non Tender, Non-Distended, No Hepato-splenomegaly Extremities: No clubbing, No cyanosis, No edema Skin: No rashes, No breakdown Lymphatic: No Cervical, Supraclavicular, or Inguinal Adenopathy Neurological: Cranial nerves II-XII grossly intact, Motor Exam 5/5 strength throughout Psych/Mental Status: Appropriate, Flat Affect Laboratory Results 05/26/20 15:00: WBC 8.7, RBC 3.89 L, Hgb 11.4 L, Hct 35.7 L, MCV 91.8, MCH 29.3, MCHC 31.9 L, RDW Std Deviation 45.3 H, RDW Coeff of Arturo 13.5, Plt Count 242, MPV 9.7, Immature Gran % (Auto) 0.500, Neut % (Auto) 68.6, Lymph % (Auto) 22.0, [place] % (Auto) 4.9, Eos % (Auto) 3.7, Baso % (Auto) 0.3, Absolute Neuts (auto) 6.0, Absolute Lymphs (auto) 1.92, Nucleated RBC % 0 05/26/20 15:00: Sodium 141, Potassium 3.8, Chloride 103, Carbon Dioxide 33.0 H, Anion Gap 5, BUN 28 H, Creatinine 3.93 H, Estim Creat Clear Calc 16.68, Est GFR (MDRD) Af Amer 20 L, Est GFR (MDRD) Non-Af 16 L, BUN/Creatinine Ratio 7.1 L, Glucose 147 H, Calcium 8.5 05/26/20 15:00: Lactic Acid 1.5 05/26/20 15:03: POC Glucose 141 H Clinical Impression(s) from Imaging Studies Chest X-Ray 05/26/20 15:15 IMPRESSION: No acute pulmonary process Electronically Signed: Cristian Ennis MD at 16:35 EDT , Service support , Assessment/Plan All Active Problems (Last Reviewed 05/26/20 @ 18:[address] Kathia Barney MD) Debility (Acute) Frequent falls (Acute) This is a 69 years old male patient presented to the emergency room because of frequent falls, weakness and reported near syncopal episode and is being admitted for PT OT evaluation and treatment and he will probably need placement to [facility] facility. #1 generalized weakness/frequent falls/debility: Patient lives with his daughter, has been falling frequently reportedly. No evidence of significant body trauma. EKG reviewed as well chest x-ray one-point there were unremarkable. Patient has been afebrile, vital signs are stable. Plan: Admit to [facility] for observation, telemetry monitoring, CT scan brain, repeat CBC and BMP tomorrow morning, PT OT evaluation and treatment, COVID-19 PCR for placement. #2 reported near syncopal episode: Likely due to vasovagal. EKG and chest x-ray reviewed as above. Routine blood work reviewed. Plan: CT scan brain, orthostatic vitals. #3 aspiration: Patient was about to swallow his denture, has been coughing since then. Chest x-ray showed no acute findings. Pulse ox is maintained on room air. Plan to monitor. #4 ESRD on hemodialysis: Received hemodialysis today. He is on hemodialysis on Mondays, Wednesdays and Fridays. Plan for nephrology consult. #5 CAD status post CABG: EKG reviewed. Continue aspirin, statins,. #6 type 2 diabetes mellitus: ADA diet, Accu-Cheks, insulin sliding scale, continue Lantus. #7 hypertension: Blood pressure improved, continue Norvasc and hydralazine. #8 benign prostatic hypertrophy: Continue finasteride and Flomax. #9 history of subdural hemorrhage: Plan for CT scan brain as above. Continue Keppra for seizure prophylaxis. #10 DVT prophylaxis: Subcu heparin. This note was generated with [employer] dictation software. It may contain incorrect words, spelling, and punctuation that were not noted in checking the note before signing. OBSV E&M: [id number] Initial observation care L2
[2020-05-26 22:11] LABS: SARSInt. QC ok A
--- NOTE | 2020-05-26 22:34 | CT_ITS ---
STUDY: CT BRAIN WITHOUT CONTRAST REASON FOR EXAM: Male, 69 years old. NEAR SYNCOPE AND WEAKNESS -- HX:HTN,CAD,DIABETES,CVA,SUBDURAL AND INTRACRANIAL HEMATOMA,RENAL DISEASE RADIATION DOSAGE (If Supplied By Facility): CTDIvol = ( 44.99 ) mGy, DLP = ( 846.73 ) mGycm TECHNIQUE: Transaxial CT imaging of the brain was performed without administration of intravenous contrast material. Individualized dose optimization techniques were used for this CT. COMPARISON: 07/22/2019 FINDINGS: Normal soft tissue structures. Normal calvarium. Remote nasal bone deformities. Bilateral lens replacements. Normal size ventricles and extra-axial spaces for the patient''s age. There are areas of decreased attenuation within the white matter tracts of the supratentorial brain, consistent with microvascular disease changes. Normal age-related changes of the basal ganglia. Normal brainstem. Normal cerebellum. There is no intracranial hemorrhage. There are no findings of an acute ischemic infarction. Normal visualized paranasal sinuses. Left mastoid sinus disease. CT/Brain/Head without Contrast IMPRESSION: No CT evidence of acute infarct or hemorrhage. If there is clinical concern for hyperacute ischemia that is not evident by CT, MRI should be considered if possible. Electronically Signed: Camacho Montgomery MD at 0:01 EDT Tel , Service support ,
[2020-05-26] MEDS: levETIRAcetam 500 MG Tablet PO (23:41)
[2020-05-26] MEDS: Tamsulosin HCl 0.4 MG Capsule PO (23:41)
[2020-05-26] MEDS: hydrALAZINE 50 MG Tablet PO (23:41)
[2020-05-26] MEDS: Heparin Injection (Vial) 5,000 UNIT/ML VIAL 5000 UNIT SC (23:42)
[2020-05-27] VITALS (12 sets, daily range): BP systolic 115–133; BP diastolic 57–71; PULSE 88–96; RESP 18; TEMP 36.6–36.8; O2SAT 92–96
[2020-05-27 00:01] LABS: Bedside Glucose 144 mg/dL (70-110)
[2020-05-27] MEDS: 0.9% Saline Lock 10 ML Syringe IV (00:05)
[2020-05-27] MEDS: Heparin Injection (Vial) 5,000 UNIT/ML VIAL 5000 UNIT SC ×3 (05:42→21:33)
[2020-05-27] MEDS: Acetaminophen 325 MG Tablet 650 MG PO (05:50)
[2020-05-27 07:27] LABS: Absolute Lymphocyte Count 1.46 X10^3/uL (0.83-4.51); Basophil# 0.04 X10^3/uL; Basophil% 0.2 % (0-1); Eosinophil# 0.21 X10^3/uL; Eosinophils% 1.3 % (0-5); Hematocrit 33.9 % (40-54); Hemoglobin 10.7 g/dL (13.0-16.5); Lymphocyte # 1.46 X10^3/ul (4.0); Lymphocyte % 9.1 % (19-41); Mean Corp Hgb Conc 31.6 g/dL (32-36); Mean Corpuscular Hgb 28.8 pg (27.0-32.0); Mean Corpuscular Volume 91.1 fL (80-94); Mean Platelet Vol. 10.1 fl (6.2-12.0); Monocyte# 1.31 X10^3/uL; Monocyte% 8.1 % (0-10); NRBC Flagged by Analyzer 0 % (0-5); Neutrophil # 13.01 X10^3/uL (2.7-7.7); Platelet Count 232 K/mm3 (150-450); RBC Distribution Width CV 13.8 % (11.6-14.6); RBC Distribution Width SD 46.6 fl (35.1-43.9); Red Blood Count 3.72 M/mm3 (4.6-6.2); White Blood Count 16.1 K/mm3 (4.4-11.0)
[2020-05-27 07:56] LABS: Anion Gap 7 (5-15); BUN 47 mg/dL (7-18); BUN/Creat Ratio 8.4 RATIO (10-20); Calcium,Total 8.4 mg/dL (8.5-10.1); Chloride 101 mmol/L (98-107); EST Glomerular Filtration Rate 11 mL/min (>60); Est Glom Filt Rate - Afr Amer 13 mL/min (>60); Estimated Creatinine Clearance 11.71 ml/min; Glucose 163 mg/dL (74-106); Potassium 5.3 mmol/L (3.5-5.1); Sodium Level 136 mmol/L (136-145)
[2020-05-27] MEDS: amLODIPine 5 MG Tablet PO (08:36)
[2020-05-27] MEDS: Finasteride 5 MG Tablet PO (08:36)
[2020-05-27] MEDS: Aspirin 81 MG TAB.CHEW PO (08:36)
[2020-05-27] MEDS: Torsemide 100 MG Tablet PO (08:37)
[2020-05-27] MEDS: Pantoprazole Sodium 40 MG Tablet PO (08:37)
[2020-05-27] MEDS: Tamsulosin HCl 0.4 MG Capsule PO ×2 (08:38→21:33)
[2020-05-27] MEDS: levETIRAcetam 500 MG Tablet PO ×2 (08:38→21:33)
[2020-05-27] MEDS: Insulin Lispro 100 UNIT/ML INSULN.PEN SC ×3 (08:41→21:41)
[2020-05-27 10:11] LABS: Bedside Glucose 152 mg/dL (70-110)
[2020-05-27] MEDS: Ferrous Sulfate 325 MG Tablet PO (12:33)
--- NOTE | 2020-05-27 15:20 | PCM.PROGNOTE ---
Patient Problems: Active and Suspected Problems (Last Reviewed 05/26/20 @ 18:[address] Kathia Barney MD) Aspiration into airway (Acute) Frequent falls (Acute) Generalized weakness (Acute) Debility (Acute) Frequent falls (Acute) Subjective: She was seen and examined today, he does not complain of any chest pain, shortness of breath, or any fever or chills. Labs today showed a creatinine of 5.6 and a BUN of 47, potassium was 5.3. His white blood cell count was elevated at 16.1. - Physical Exam Vitals/I&O's: Vital Signs Temp Pulse Resp BP Pulse Ox 98.1 F 89 18 115/64 94 05/27/20 08:20 05/27/20 12:00 05/27/20 08:20 05/27/20 08:20 05/27/20 08:20 Oxygen Flow Rate (L/min) 2 Oxygen Delivery Method Room Air Weight: 68.6 kg Body Mass Index (BMI) 23.0 Finger Stick Blood Glucose 480 Intake and Output for Last 24 Hours 05/25/20 05/26/20 05/27/20 23:59 23:59 23:59 Intake Total 390 / 390 Balance 390 / 390 General: Alert, Oriented x3, Cooperative, No apparent distress, Well developed HEENT: Atraumatic, PERRLA, EOMI, Normocephalic Oral: Moist Mucosa Neck: Supple, No JVD, Trachea Midline, Thyroid Normal Size and Texture Lungs: Clear to auscultation, Normal air movement, No rhonchi, No wheeze, No rales Cardiovascular: Regular rate, Regular Rhythm, Normal S1, Normal S2, No murmurs, PMI Normal, No rub noted, No Gallop Abdomen: Bowel Sounds Present, Soft, Non Tender, Non-Distended Extremities: No clubbing, No cyanosis, No edema, Capillary Refill Less than 3 Seconds Skin: No rashes, No breakdown Musculoskeletal: No Tenderness to Palpation of Joints or Extremities Neurological: Cranial nerves II-XII grossly intact, Neuro grossly intact, Sensory exam intact to light touch and pain, Coordination normal Psych/Mental Status: Normal Affect, Appropriate Laboratory Results 05/26/20 15:00: Sodium 141, Potassium 3.8, Chloride 103, Carbon Dioxide 33.0 H, Anion Gap 5, BUN 28 H, Creatinine 3.93 H, Estim Creat Clear Calc 16.68, Est GFR (MDRD) Af Amer 20 L, Est GFR (MDRD) Non-Af 16 L, BUN/Creatinine Ratio 7.1 L, Glucose 147 H, Calcium 8.5 05/26/20 15:00: Lactic Acid 1.5 05/26/20 19:32: COVID-19 (RACHEL) Not Detected 05/26/20 23:45: POC Glucose 144 H 05/27/20 05:58: POC Glucose 152 H 05/27/20 07:15: WBC 16.1 H, RBC 3.72 L, Hgb 10.7 L, Hct 33.9 L, MCV 91.1, MCH 28.8, MCHC 31.6 L, RDW Std Deviation 46.6 H, RDW Coeff of Arturo 13.8, Plt Count 232, MPV 10.1, Immature Gran % (Auto) 0.300, Neut % (Auto) 81.0 H, Lymph % (Auto) 9.1 L, [place] % (Auto) 8.1, Eos % (Auto) 1.3, Baso % (Auto) 0.2, Absolute Neuts (auto) 13.0 H, Absolute Lymphs (auto) 1.46, Nucleated RBC % 0 05/27/20 07:15: Sodium 136, Potassium 5.3 H, Chloride 101, Carbon Dioxide 28.0, Anion Gap 7, BUN 47 H, Creatinine 5.60 H, Estim Creat Clear Calc 11.71, Est GFR (MDRD) Af Amer 13 L, Est GFR (MDRD) Non-Af 11 L, BUN/Creatinine Ratio 8.4 L, Glucose 163 H, Calcium 8.4 L Current Medications Acetaminophen (Acetaminophen 325 Mg Tablet) 650 mg PO Q6H PRN PRN PRN Reason: Pain Score 1-10/Temp > 100.7 F Last Admin: 05/27/20 05:50 Dose: 650 mg Documented by: Amlodipine Besylate (Amlodipine 5 Mg Tablet) 5 mg PO DAILY ON LICENSE OF [facility] Last Admin: 05/27/20 08:36 Dose: 5 mg Documented by: Aspirin (Aspirin 81 Mg Tab.Chew) 81 mg PO DAILY@0800 ON LICENSE OF [facility] Last Admin: 05/27/20 08:36 Dose: 81 mg Documented by: Atorvastatin Calcium (Atorvastatin Calcium 80 Mg Tablet) 80 mg PO DAILY@2200 ON LICENSE OF [facility] Ferrous Sulfate (Ferrous Sulfate 325 Mg Tablet) 325 mg PO DAILY@1200 ON LICENSE OF [facility] Last Admin: 05/27/20 12:33 Dose: 325 mg Documented by: Finasteride (Finasteride 5 Mg Tablet) 5 mg PO DAILY ON LICENSE OF [facility] Last Admin: 05/27/20 08:36 Dose: 5 mg Documented by: Heparin Sodium (Porcine) (Heparin Injection (Vial) 5,000 Unit/Ml Vial) 5,000 unit SC Q8 ON LICENSE OF [facility] Last Admin: 05/27/20 05:42 Dose: 5,000 unit Documented by: Hydralazine HCl (Hydralazine 50 Mg Tablet) 50 mg PO TID ON LICENSE OF [facility] Last Admin: 05/27/20 05:41 Dose: Not Given Documented by: Sodium Chloride () 250 mls @ 15 mls/hr IV .[id number] PRN PRN Reason: Saline Flush Sodium Chloride () 250 mls @ 15 mls/hr IV .[id number] PRN PRN Reason: Additional IVPB Infusion Insulin Glargine (Insulin Glargine 100 Units/Ml Pen) 10 units SC 0700 ON LICENSE OF [facility] Last Admin: 05/27/20 08:39 Dose: 10 units Documented by: Insulin Human Lispro (Insulin Lispro 100 Unit/Ml Insuln.Pen) 0 unit SC ACHS ON LICENSE OF [facility]; Protocol Last Admin: 05/27/20 12:33 Dose: 1 units Documented by: Levetiracetam (Levetiracetam 500 Mg Tablet) 500 mg PO BID ON LICENSE OF [facility] Last Admin: 05/27/20 08:38 Dose: 500 mg Documented by: Ondansetron HCl (Ondansetron 4 Mg/2 Ml Vial) 4 mg IV Q8H PRN PRN PRN Reason: NAUSEA/VOMITING Pantoprazole Sodium (Pantoprazole Sodium 40 Mg Tablet) 40 mg PO DAILY ON LICENSE OF [facility] Last Admin: 05/27/20 08:37 Dose: 40 mg Documented by: Senna/Docusate Sodium (Senna/Docusate Sodium 1 Tablet) 2 tablet PO BID PRN PRN PRN Reason: Constipation Sodium Chloride (0.9% Saline Lock 10 Ml Syringe) 10 - 40 ml IV UD PRN PRN Reason: SALINE FLUSH Last Admin: 05/27/20 00:05 Dose: 10 ml Documented by: Tamsulosin HCl (Tamsulosin Hcl 0.4 Mg Capsule) 0.4 mg PO BID ON LICENSE OF [facility] Last Admin: 05/27/20 08:38 Dose: 0.4 mg Documented by: Torsemide (Torsemide 100 Mg Tablet) 100 mg PO DAILY ON LICENSE OF [facility] Last Admin: 05/27/20 08:37 Dose: 100 mg Documented by: Zolpidem Tartrate (Zolpidem Tartrate 5 Mg Tablet) 5 mg PO QHS PRN PRN PRN Reason: INSOMNIA Medical Necessity - Tobacco Use Smoking Status: Former smoker Tobacco Use: Cigarettes Assessment/Plan All Active Problems (Last Reviewed 05/26/20 @ 18:[address] Kathia Barney MD) Aspiration into airway (Acute) Frequent falls (Acute) Generalized weakness (Acute) Debility (Acute) Frequent falls (Acute) #1 generalized debility due to multiple medical problems including end-stage renal disease, cerebrovascular disease, type 2 diabetes, coronary artery disease, and peripheral vascular disease-patient will be seen by PT and OT, he will need jail facility placement at least short-term, this will not be accomplished till early next week. #2 end-stage renal disease secondary to type 2 diabetes-on dialysis-nephrology is participating in his care #3 peripheral vascular disease #4 type 2 diabetes-blood sugars will be monitored and insulin will be given per protocol #5 coronary artery disease #6 hyperlipidemia #7 leukocytosis-etiology unclear-patient is afebrile #8 BPH #9 seizure disorder #10 essential hypertension #11 GERD OBSV E&M: [id number] Subsequent observation care L3
[2020-05-27] MEDS: hydrALAZINE 50 MG Tablet PO ×2 (16:08→21:33)
[2020-05-27 17:10] LABS: Bedside Glucose 169 mg/dL (70-110)
[2020-05-27 17:10] LABS: Bedside Glucose 115 mg/dL (70-110)
--- NOTE | 2020-05-27 17:35 | CASEMGMT ---
SOCIAL WORK Met with patient in room to follow up on discharge plan. Reviewed therapy notes. Patient reports plan remains for SNF and requests referral to [facility]. Patient states I need a lot of assistance on dialysis days. Patient did not remember this worker from ER last evening and reports I don't remember being in the ER at all. Informed patient a SW will follow up on Friday. Patient will need precert for SNF. Plan: SNF- referral to be made to [facility]. SW to follow up Friday. Malick Mccartney, PHARMACY TECHNICIAN, AIR QUALITY TECHNICIAN
[2020-05-27] MEDS: Atorvastatin Calcium 80 MG Tablet PO (21:33)
[2020-05-27 21:45] LABS: Bedside Glucose 164 mg/dL (70-110)
[2020-05-28] VITALS (11 sets, daily range): BP systolic 123–145; BP diastolic 56–73; PULSE 80–103; RESP 16–18; TEMP 36.6–37.1; O2SAT 94–97
[2020-05-28] MEDS: hydrALAZINE 50 MG Tablet PO ×3 (05:20→20:53)
[2020-05-28] MEDS: Heparin Injection (Vial) 5,000 UNIT/ML VIAL 5000 UNIT SC ×3 (05:20→20:53)
[2020-05-28] MEDS: Pantoprazole Sodium 40 MG Tablet PO (09:19)
[2020-05-28] MEDS: Tamsulosin HCl 0.4 MG Capsule PO ×2 (09:19→20:53)
[2020-05-28] MEDS: amLODIPine 5 MG Tablet PO (09:19)
[2020-05-28] MEDS: Torsemide 100 MG Tablet PO (09:19)
[2020-05-28] MEDS: levETIRAcetam 500 MG Tablet PO ×2 (09:19→20:53)
[2020-05-28] MEDS: Aspirin 81 MG TAB.CHEW PO (09:19)
[2020-05-28] MEDS: Finasteride 5 MG Tablet PO (09:20)
[2020-05-28 09:30] LABS: Bedside Glucose 122 mg/dL (70-110)
[2020-05-28] MEDS: Insulin Lispro 100 UNIT/ML INSULN.PEN SC ×2 (11:43→21:06)
[2020-05-28] MEDS: Ferrous Sulfate 325 MG Tablet PO (11:43)
[2020-05-28 11:51] LABS: Bedside Glucose 209 mg/dL (70-110)
--- NOTE | 2020-05-28 15:55 | PCM.PROGNOTE ---
Patient Problems: Active and Suspected Problems (Last Reviewed 05/26/20 @ 18:[address] Kathia Barney MD) Aspiration into airway (Acute) Frequent falls (Acute) Generalized weakness (Acute) Debility (Acute) Frequent falls (Acute) Subjective: Patient was seen and examined today, he has no complaints of any shortness of breath, chest pain, fevers, or chills. I talked with nephrology briefly today by phone, they will see the patient in the morning, his dialysis days appear to be Friday, Friday, and Friday. Objective: General: Alert, Oriented x3, Cooperative, No apparent distress, Well developed HEENT: Atraumatic, PERRLA, EOMI, Normocephalic Oral: Moist Mucosa Neck: Supple, No JVD, Trachea Midline, Thyroid Normal Size and Texture Lungs: Clear to auscultation, Normal air movement, No rhonchi, No wheeze, No rales Cardiovascular: Regular rate, Regular Rhythm, Normal S1, Normal S2, No murmurs, PMI Normal, No rub noted, No Gallop Abdomen: Bowel Sounds Present, Soft, Non Tender, Non-Distended Extremities: No clubbing, No cyanosis, No edema, Capillary Refill Less than 3 Seconds Skin: No rashes, No breakdown Musculoskeletal: No Tenderness to Palpation of Joints or Extremities Neurological: Cranial nerves II-XII grossly intact, Neuro grossly intact, Sensory exam intact to light touch and pain, Coordination normal Psych/Mental Status: Normal Affect, Appropriate - Physical Exam Vitals/I&O's: Vital Signs Temp Pulse Resp BP Pulse Ox 98.1 F 80 18 137/56 H 95 05/28/20 15:20 05/28/20 15:22 05/28/20 15:20 05/28/20 15:20 05/28/20 15:20 Oxygen Flow Rate (L/min) 2 Oxygen Delivery Method Room Air Weight: 68.6 kg Body Mass Index (BMI) 23.0 Finger Stick Blood Glucose 480 Intake and Output for Last 24 Hours 05/26/20 05/27/20 05/28/20 23:59 23:59 23:59 Intake Total 390 / 390 350 / 350 Balance 390 / 390 350 / 350 Laboratory Results 05/27/20 12:27: POC Glucose 169 H 05/27/20 17:01: POC Glucose 115 H 05/27/20 21:39: POC Glucose 164 H 05/28/20 09:10: POC Glucose 122 H 05/28/20 11:42: POC Glucose 209 H Current Medications Acetaminophen (Acetaminophen 325 Mg Tablet) 650 mg PO Q6H PRN PRN PRN Reason: Pain Score 1-10/Temp > 100.7 F Last Admin: 05/27/20 05:50 Dose: 650 mg Documented by: Amlodipine Besylate (Amlodipine 5 Mg Tablet) 5 mg PO DAILY [facility] Last Admin: 05/28/20 09:19 Dose: 5 mg Documented by: Aspirin (Aspirin 81 Mg Tab.Chew) 81 mg PO DAILY@0800 [facility] Last Admin: 05/28/20 09:19 Dose: 81 mg Documented by: Atorvastatin Calcium (Atorvastatin Calcium 80 Mg Tablet) 80 mg PO DAILY@2200 [facility] Last Admin: 05/27/20 21:33 Dose: 80 mg Documented by: Ferrous Sulfate (Ferrous Sulfate 325 Mg Tablet) 325 mg PO DAILY@1200 [facility] Last Admin: 05/28/20 11:43 Dose: 325 mg Documented by: Finasteride (Finasteride 5 Mg Tablet) 5 mg PO DAILY [facility] Last Admin: 05/28/20 09:20 Dose: 5 mg Documented by: Heparin Sodium (Porcine) (Heparin Injection (Vial) 5,000 Unit/Ml Vial) 5,000 unit SC Q8 [facility] Last Admin: 05/28/20 15:22 Dose: 5,000 unit Documented by: Hydralazine HCl (Hydralazine 50 Mg Tablet) 50 mg PO TID [facility] Last Admin: 05/28/20 15:22 Dose: 50 mg Documented by: Sodium Chloride () 250 mls @ 15 mls/hr IV .[id number] PRN PRN Reason: Saline Flush Sodium Chloride () 250 mls @ 15 mls/hr IV .[id number] PRN PRN Reason: Additional IVPB Infusion Insulin Glargine (Insulin Glargine 100 Units/Ml Pen) 10 units SC 0700 [facility] Last Admin: 05/28/20 09:20 Dose: 10 units Documented by: Insulin Human Lispro (Insulin Lispro 100 Unit/Ml Insuln.Pen) 0 unit SC ACHS [facility]; Protocol Last Admin: 05/28/20 11:43 Dose: 2 units Documented by: Levetiracetam (Levetiracetam 500 Mg Tablet) 500 mg PO BID [facility] Last Admin: 05/28/20 09:19 Dose: 500 mg Documented by: Ondansetron HCl (Ondansetron 4 Mg/2 Ml Vial) 4 mg IV Q8H PRN PRN PRN Reason: NAUSEA/VOMITING Pantoprazole Sodium (Pantoprazole Sodium 40 Mg Tablet) 40 mg PO DAILY [facility] Last Admin: 05/28/20 09:19 Dose: 40 mg Documented by: Senna/Docusate Sodium (Senna/Docusate Sodium 1 Tablet) 2 tablet PO BID PRN PRN PRN Reason: Constipation Sodium Chloride (0.9% Saline Lock 10 Ml Syringe) 10 - 40 ml IV UD PRN PRN Reason: SALINE FLUSH Last Admin: 05/27/20 00:05 Dose: 10 ml Documented by: Tamsulosin HCl (Tamsulosin Hcl 0.4 Mg Capsule) 0.4 mg PO BID [facility] Last Admin: 05/28/20 09:19 Dose: 0.4 mg Documented by: Torsemide (Torsemide 100 Mg Tablet) 100 mg PO DAILY [facility] Last Admin: 05/28/20 09:19 Dose: 100 mg Documented by: Zolpidem Tartrate (Zolpidem Tartrate 5 Mg Tablet) 5 mg PO QHS PRN PRN PRN Reason: INSOMNIA Medical Necessity - Tobacco Use Smoking Status: Former smoker Tobacco Use: Cigarettes Assessment/Plan All Active Problems (Last Reviewed 05/26/20 @ 18:[address] Kathia Barney MD) Aspiration into airway (Acute) Frequent falls (Acute) Generalized weakness (Acute) Debility (Acute) Frequent falls (Acute) #1 generalized debility due to multiple medical problems including end-stage renal disease on dialysis, cerebrovascular disease, type 2 diabetes, coronary artery disease, and peripheral vascular disease-patient will be seen by PT and OT, he will need halfway facility placement at least short-term, this will not be accomplished till early next week. #2 end-stage renal disease secondary to type 2 diabetes-on dialysis-nephrology is participating in his care and will see the patient tomorrow, it appears his dialysis day is tomorrow, BMP will be obtained in the morning #3 peripheral vascular disease #4 type 2 diabetes-blood sugars will be monitored and insulin will be given per protocol #5 coronary artery disease #6 hyperlipidemia #7 leukocytosis-etiology unclear-patient is afebrile #8 BPH #9 seizure disorder #10 essential hypertension #11 GERD OBSV E&M: 65322 Subsequent observation care L3
[2020-05-28 17:25] LABS: Bedside Glucose 102 mg/dL (70-110)
[2020-05-28] MEDS: Atorvastatin Calcium 80 MG Tablet PO (20:53)
[2020-05-28 21:16] LABS: Bedside Glucose 155 mg/dL (70-110)
[2020-05-29] VITALS (11 sets, daily range): BP systolic 134–156; BP diastolic 61–73; PULSE 76–94; RESP 16–28; TEMP 36.6–37.3; O2SAT 93–99
[2020-05-29] MEDS: Heparin Injection (Vial) 5,000 UNIT/ML VIAL 5000 UNIT SC ×3 (06:11→21:23)
[2020-05-29] MEDS: hydrALAZINE 50 MG Tablet PO ×3 (06:12→21:22)
[2020-05-29 07:33] LABS: Anion Gap 13 (5-15); BUN 92 mg/dL (7-18); Calcium,Total 8.1 mg/dL (8.5-10.1); Chloride 102 mmol/L (98-107); Creatinine, Serum 8.33 mg/dL (0.70-1.30); EST Glomerular Filtration Rate 7 mL/min (>60); Est Glom Filt Rate - Afr Amer 8 mL/min (>60); Estimated Creatinine Clearance 7.87 ml/min; Glucose 115 mg/dL (74-106); Potassium 4.5 mmol/L (3.5-5.1); Sodium Level 141 mmol/L (136-145)
[2020-05-29 07:50] LABS: Bedside Glucose 112 mg/dL (70-110)
--- NOTE | 2020-05-29 07:58 | NURSING ---
Dialysis nurse called and wanted information on pt. Spouse was called and she said pt goes to [facility] dialysis center and he is treated Friday , Friday and Friday. Per nurse pt primary gymnasium teacher is Dr. Fisher. Phone call returned to nurse and message left.
[2020-05-29] MEDS: Aspirin 81 MG TAB.CHEW PO (08:44)
--- NOTE | 2020-05-29 10:40 | PCM.PN.HOSP ---
Patient Problems: Active and Suspected Problems (Last Reviewed 05/26/20 @ 18:[address] Kathia Barney MD) Aspiration into airway (Acute) Frequent falls (Acute) Generalized weakness (Acute) Debility (Acute) Frequent falls (Acute) Reason for Visit: Physical debility Subjective: Patient is a 69-year-old gentleman with multiple comorbidities including end-stage renal disease presented with progressive generalized weakness Objective: GENERAL: cooperative HEENT: Atraumatic; EYES; Anicteric, Normal Conjunctiva NECK; supple, normal thyroid, RESPIRATORY: Diminished to auscultation CARDIOVASCULAR: Regular S1 S2, GI: soft, normoactive bowel sounds, : No Renal angle tenderness; EXTREMITIES: No edema, no clubbing, MUSCULOSKELETAL: no muscle waisting NEURO: Awake; no lateralizing signs. SKIN: No Rash PSYCH; Flat affect Vitals/I&O's: Vital Signs Temp Pulse Resp BP Pulse Ox 98.4 F 86 16 143/61 H 96 05/29/20 02:45 05/29/20 06:12 05/29/20 02:45 05/29/20 02:45 05/29/20 07:19 Oxygen Flow Rate (L/min) 2 Oxygen Delivery Method Room Air Weight: 68.492 kg Body Mass Index (BMI) 23.0 Finger Stick Blood Glucose 480 Intake and Output for Last 24 Hours 05/27/20 05/28/20 05/29/20 23:59 23:59 23:59 Intake Total 390 / 390 600 / 600 Balance 390 / 390 600 / 600 Laboratory Results 05/28/20 11:42: POC Glucose 209 H 05/28/20 17:13: POC Glucose 102 05/28/20 21:06: POC Glucose 155 H 05/29/20 06:45: Sodium 141, Potassium 4.5, Chloride 102, Carbon Dioxide 26.0, Anion Gap 13, BUN 92 H, Creatinine 8.33 H*, Estim Creat Clear Calc 7.87, Est GFR (MDRD) Af Amer 8 L, Est GFR (MDRD) Non-Af 7 L, BUN/Creatinine Ratio 11.0, Glucose 115 H, Calcium 8.1 L 05/29/20 07:35: POC Glucose 112 H Current Medications Acetaminophen (Acetaminophen 325 Mg Tablet) 650 mg PO Q6H PRN PRN PRN Reason: Pain Score 1-10/Temp > 100.7 F Last Admin: 05/27/20 05:50 Dose: 650 mg Documented by: Amlodipine Besylate (Amlodipine 5 Mg Tablet) 5 mg PO DAILY [facility] Last Admin: 05/28/20 09:19 Dose: 5 mg Documented by: Aspirin (Aspirin 81 Mg Tab.Chew) 81 mg PO DAILY@0800 [facility] Last Admin: 05/29/20 08:44 Dose: 81 mg Documented by: Atorvastatin Calcium (Atorvastatin Calcium 80 Mg Tablet) 80 mg PO DAILY@2200 [facility] Last Admin: 05/28/20 20:53 Dose: 80 mg Documented by: Ferrous Sulfate (Ferrous Sulfate 325 Mg Tablet) 325 mg PO DAILY@1200 [facility] Last Admin: 05/28/20 11:43 Dose: 325 mg Documented by: Finasteride (Finasteride 5 Mg Tablet) 5 mg PO DAILY [facility] Last Admin: 05/28/20 09:20 Dose: 5 mg Documented by: Heparin Sodium (Porcine) (Heparin Injection (Vial) 5,000 Unit/Ml Vial) 5,000 unit SC Q8 [facility] Last Admin: 05/29/20 06:11 Dose: 5,000 unit Documented by: Hydralazine HCl (Hydralazine 50 Mg Tablet) 50 mg PO TID [facility] Last Admin: 05/29/20 06:12 Dose: 50 mg Documented by: Sodium Chloride () 250 mls @ 15 mls/hr IV .[id number] PRN PRN Reason: Saline Flush Sodium Chloride () 250 mls @ 15 mls/hr IV .[id number] PRN PRN Reason: Additional IVPB Infusion Insulin Glargine (Insulin Glargine 100 Units/Ml Pen) 10 units SC 0700 [facility] Last Admin: 05/29/20 08:43 Dose: 10 units Documented by: Insulin Human Lispro (Insulin Lispro 100 Unit/Ml Insuln.Pen) 0 unit SC ACHS [facility]; Protocol Last Admin: 05/29/20 08:44 Dose: Not Given Documented by: Levetiracetam (Levetiracetam 500 Mg Tablet) 500 mg PO BID [facility] Last Admin: 05/28/20 20:53 Dose: 500 mg Documented by: Ondansetron HCl (Ondansetron 4 Mg/2 Ml Vial) 4 mg IV Q8H PRN PRN PRN Reason: NAUSEA/VOMITING Pantoprazole Sodium (Pantoprazole Sodium 40 Mg Tablet) 40 mg PO DAILY [facility] Last Admin: 05/28/20 09:19 Dose: 40 mg Documented by: Senna/Docusate Sodium (Senna/Docusate Sodium 1 Tablet) 2 tablet PO BID PRN PRN PRN Reason: Constipation Sodium Chloride (0.9% Saline Lock 10 Ml Syringe) 10 - 40 ml IV UD PRN PRN Reason: SALINE FLUSH Last Admin: 05/27/20 00:05 Dose: 10 ml Documented by: Tamsulosin HCl (Tamsulosin Hcl 0.4 Mg Capsule) 0.4 mg PO BID [facility] Last Admin: 05/28/20 20:53 Dose: 0.4 mg Documented by: Torsemide (Torsemide 100 Mg Tablet) 100 mg PO DAILY [facility] Last Admin: 05/28/20 09:19 Dose: 100 mg Documented by: Zolpidem Tartrate (Zolpidem Tartrate 5 Mg Tablet) 5 mg PO QHS PRN PRN PRN Reason: INSOMNIA STROKE Vital Signs/Narrative: Vital Signs Pulse Ox 05/29/20 07:19 96 Medical Necessity - Tobacco Use Smoking Status: Former smoker Tobacco Use: Cigarettes Assessment/Plan All Active Problems (Last Reviewed 05/26/20 @ 18:[address] Kathia Barney MD) Aspiration into airway (Acute) Frequent falls (Acute) Generalized weakness (Acute) Debility (Acute) Frequent falls (Acute) Patient is a 69-year-old gentleman with multiple comorbidities including end-stage renal disease presented with progressive generalized weakness 1. Physical deconditioning due to multiple medical comorbidities including end-stage renal disease, CVA diabetes mellitus type 2 -Admitted to regular nursing floor - Requested for PT OT eval and social insurance analyst to assist with discharge planning 2. End-stage renal disease ?Patient on hemodialysis on Wednesdays and Fridays consult placed to nephrology for dialysis orders 3. Seizure disorder ?Patient is on Keppra did continue with home meds 4. Hypertension - Blood pressure controlled, home medications continued with dose adjustment as needed 5. Previous history of subdural hemorrhage, intracerebral hemorrhage and intraventricular hemorrhage and subarachnoid hemorrhage following a fall 6. Coronary artery disease ?With history of CABG 7. Diabetes mellitus type II -Complications including end-stage renal disease. Currently managed with diet 8. BPH ?Patient on tamsulosin 9. Dyslipidemia -Patient is on statin therapy, continued at home dose 10. DVT prophylaxis ?On SC heparin Advance planning; did discuss with the patient and family regarding advanced directives as well as CODE STATUS. Did explain the various scenarios involved ( FULL CODE, DNR CCA, DNR CCA with no intubation, and DNR CC and what each meant) patient elected to remain full code with CPR and intubation if needed. Order was placed. Time spent on discussion 18 minutes. Active Medications Acetaminophen (Acetaminophen 325 Mg Tablet) 650 mg PO Q6H PRN PRN PRN Reason: Pain Score 1-10/Temp > 100.7 F Last Admin: 05/27/20 05:50 Dose: 650 mg Documented by: Amlodipine Besylate (Amlodipine 5 Mg Tablet) 5 mg PO DAILY [facility] Last Admin: 05/28/20 09:19 Dose: 5 mg Documented by: Aspirin (Aspirin 81 Mg Tab.Chew) 81 mg PO DAILY@0800 [facility] Last Admin: 05/29/20 08:44 Dose: 81 mg Documented by: Atorvastatin Calcium (Atorvastatin Calcium 80 Mg Tablet) 80 mg PO DAILY@2200 [facility] Last Admin: 05/28/20 20:53 Dose: 80 mg Documented by: Ferrous Sulfate (Ferrous Sulfate 325 Mg Tablet) 325 mg PO DAILY@1200 [facility] Last Admin: 05/28/20 11:43 Dose: 325 mg Documented by: Finasteride (Finasteride 5 Mg Tablet) 5 mg PO DAILY [facility] Last Admin: 05/28/20 09:20 Dose: 5 mg Documented by: Heparin Sodium (Porcine) (Heparin Injection (Vial) 5,000 Unit/Ml Vial) 5,000 unit SC Q8 [facility] Last Admin: 05/29/20 06:11 Dose: 5,000 unit Documented by: Hydralazine HCl (Hydralazine 50 Mg Tablet) 50 mg PO TID [facility] Last Admin: 05/29/20 06:12 Dose: 50 mg Documented by: Sodium Chloride () 250 mls @ 15 mls/hr IV .[id number] PRN PRN Reason: Saline Flush Sodium Chloride () 250 mls @ 15 mls/hr IV .[id number] PRN PRN Reason: Additional IVPB Infusion Insulin Glargine (Insulin Glargine 100 Units/Ml Pen) 10 units SC 0700 [facility] Last Admin: 05/29/20 08:43 Dose: 10 units Documented by: Insulin Human Lispro (Insulin Lispro 100 Unit/Ml Insuln.Pen) 0 unit SC ACHS [facility]; Protocol Last Admin: 05/29/20 08:44 Dose: Not Given Documented by: Levetiracetam (Levetiracetam 500 Mg Tablet) 500 mg PO BID [facility] Last Admin: 05/28/20 20:53 Dose: 500 mg Documented by: Ondansetron HCl (Ondansetron 4 Mg/2 Ml Vial) 4 mg IV Q8H PRN PRN PRN Reason: NAUSEA/VOMITING Pantoprazole Sodium (Pantoprazole Sodium 40 Mg Tablet) 40 mg PO DAILY [facility] Last Admin: 05/28/20 09:19 Dose: 40 mg Documented by: Senna/Docusate Sodium (Senna/Docusate Sodium 1 Tablet) 2 tablet PO BID PRN PRN PRN Reason: Constipation Sodium Chloride (0.9% Saline Lock 10 Ml Syringe) 10 - 40 ml IV UD PRN PRN Reason: SALINE FLUSH Last Admin: 05/27/20 00:05 Dose: 10 ml Documented by: Tamsulosin HCl (Tamsulosin Hcl 0.4 Mg Capsule) 0.4 mg PO BID [facility] Last Admin: 05/28/20 20:53 Dose: 0.4 mg Documented by: Torsemide (Torsemide 100 Mg Tablet) 100 mg PO DAILY [facility] Last Admin: 05/28/20 09:19 Dose: 100 mg Documented by: Zolpidem Tartrate (Zolpidem Tartrate 5 Mg Tablet) 5 mg PO QHS PRN PRN PRN Reason: INSOMNIA Inpatient E&M: 65744 Subs Hosp L2 Procedures: 28063 Advncd Care Plan 30 Min
[2020-05-29] MEDS: Finasteride 5 MG Tablet PO (10:59)
[2020-05-29] MEDS: Tamsulosin HCl 0.4 MG Capsule PO ×2 (10:59→21:23)
[2020-05-29] MEDS: Ferrous Sulfate 325 MG Tablet PO (10:59)
[2020-05-29] MEDS: levETIRAcetam 500 MG Tablet PO ×2 (10:59→21:23)
[2020-05-29] MEDS: Pantoprazole Sodium 40 MG Tablet PO (10:59)
[2020-05-29] MEDS: Torsemide 100 MG Tablet PO (11:00)
[2020-05-29] MEDS: amLODIPine 5 MG Tablet PO (11:00)
--- NOTE | 2020-05-29 11:08 | NURSING ---
Resting in bed. Occasional cough noted. No complaints voiced at this time when this RN rounds. Will continue to monitor.
[2020-05-29 11:35] LABS: Bedside Glucose 140 mg/dL (70-110)
--- NOTE | 2020-05-29 12:04 | CASEMGMT ---
CASSANDRA CASTILLO in to review [employer] with patient. CASSANDRA CASTILLO explained [employer] form to patient. Patient voiced understanding and signed [employer] form. Signed [facility] form placed in chart. Copy of signed [employer] form given to patient. Patient had no further questions or concerns at this time.
--- NOTE | 2020-05-29 14:10 | CASEMGMT ---
Social Work Note SW reviewed notes, pt wishes to discharge to [facility]. Dot Harkins faxed referral to [facility]. SW placed a call to Ayana at [facility] and updated her on referral. Ayana states she will submit for pre-cert. Plan: [facility] pending pre-cert Alysia De Luna [employer], MANAGER STORY
--- NOTE | 2020-05-29 14:48 | PCM.CONS.R ---
Consultation - Renal 05/29/20 PCP/ Referring MD: Requesting physician: [] Primary care physician: Dr. Paul Martinez MD Reason for Consultation:: esrd - History of Present Illness History of Present Illness: The patient is a 69 year old M with past medical history of end-stage renal disease who presented with a chief complaint of near syncope. The patient except feeling weak and has no other complaints. Apparently he felt tired and weak after dialysis he almost swallowed his dentures and started coughing. The patient denies any other complaints except dry cough. He goes Friday to dialysis. He denies fever chills chest pain shortness of breath nausea vomiting diarrhea abdominal pain. He states he has significant residual urine output. He denies discharge from the right IJ tunneled dialysis catheter or pain at the catheter site. - Allergies Allergies: Allergies No Known Allergies Allergy (Verified 05/26/20 22:43) - Current Medications Current Medications: Current Medications Acetaminophen (Acetaminophen 325 Mg Tablet) 650 mg PO Q6H PRN PRN PRN Reason: Pain Score 1-10/Temp > 100.7 F Last Admin: 05/27/20 05:50 Dose: 650 mg Documented by: Amlodipine Besylate (Amlodipine 5 Mg Tablet) 5 mg PO DAILY [facility] Last Admin: 05/29/20 11:00 Dose: 5 mg Documented by: Aspirin (Aspirin 81 Mg Tab.Chew) 81 mg PO DAILY@0800 [facility] Last Admin: 05/29/20 08:44 Dose: 81 mg Documented by: Atorvastatin Calcium (Atorvastatin Calcium 80 Mg Tablet) 80 mg PO DAILY@2200 [facility] Last Admin: 05/28/20 20:53 Dose: 80 mg Documented by: Ferrous Sulfate (Ferrous Sulfate 325 Mg Tablet) 325 mg PO DAILY@1200 [facility] Last Admin: 05/29/20 10:59 Dose: 325 mg Documented by: Finasteride (Finasteride 5 Mg Tablet) 5 mg PO DAILY [facility] Last Admin: 05/29/20 10:59 Dose: 5 mg Documented by: Heparin Sodium (Porcine) (Heparin Injection (Vial) 5,000 Unit/Ml Vial) 5,000 unit SC Q8 [facility] Last Admin: 05/29/20 14:17 Dose: 5,000 unit Documented by: Hydralazine HCl (Hydralazine 50 Mg Tablet) 50 mg PO TID [facility] Last Admin: 05/29/20 14:17 Dose: 50 mg Documented by: Sodium Chloride () 250 mls @ 15 mls/hr IV .[id number] PRN PRN Reason: Saline Flush Sodium Chloride () 250 mls @ 15 mls/hr IV .[id number] PRN PRN Reason: Additional IVPB Infusion Insulin Glargine (Insulin Glargine 100 Units/Ml Pen) 10 units SC 0700 [facility] Last Admin: 05/29/20 08:43 Dose: 10 units Documented by: Insulin Human Lispro (Insulin Lispro 100 Unit/Ml Insuln.Pen) 0 unit SC ACHS [facility]; Protocol Last Admin: 05/29/20 11:49 Dose: Not Given Documented by: Levetiracetam (Levetiracetam 500 Mg Tablet) 500 mg PO BID [facility] Last Admin: 05/29/20 10:59 Dose: 500 mg Documented by: Ondansetron HCl (Ondansetron 4 Mg/2 Ml Vial) 4 mg IV Q8H PRN PRN PRN Reason: NAUSEA/VOMITING Pantoprazole Sodium (Pantoprazole Sodium 40 Mg Tablet) 40 mg PO DAILY [facility] Last Admin: 05/29/20 10:59 Dose: 40 mg Documented by: Senna/Docusate Sodium (Senna/Docusate Sodium 1 Tablet) 2 tablet PO BID PRN PRN PRN Reason: Constipation Sodium Chloride (0.9% Saline Lock 10 Ml Syringe) 10 - 40 ml IV UD PRN PRN Reason: SALINE FLUSH Last Admin: 05/27/20 00:05 Dose: 10 ml Documented by: Tamsulosin HCl (Tamsulosin Hcl 0.4 Mg Capsule) 0.4 mg PO BID [facility] Last Admin: 05/29/20 10:59 Dose: 0.4 mg Documented by: Torsemide (Torsemide 100 Mg Tablet) 100 mg PO DAILY [facility] Last Admin: 05/29/20 11:00 Dose: 100 mg Documented by: Zolpidem Tartrate (Zolpidem Tartrate 5 Mg Tablet) 5 mg PO QHS PRN PRN PRN Reason: INSOMNIA - Past Medical History Past Medical History (Chronic Problems): Chronic Problems (Last Reviewed 05/26/20 @ 18:[address] Kathia Barney MD) End-stage renal disease on hemodialysis (Chronic) End stage renal disease on dialysis (Chronic) Depression (Chronic) BPH with obstruction/lower urinary tract symptoms (Chronic) Left ventricular hypertrophy (Chronic) Diverticulosis (Chronic) Tobacco dependence in remission (Chronic) smoked for only 3 hours hx of APLL (Chronic) Left leg- 05/16/19 left superficial femoral artery and left popliteal artery angioplasty by Dr. Kamara History of angioplasty of peripheral vessel (Chronic ~2017) 01/01/16 L Peroneal and L superficial femoral A. angioplasty by Dr. Kamara HTN (hypertension) (Chronic) History of stroke (Chronic) Left parietal in August of 2017 Peripheral vascular disease (Chronic) BL LE PVD - status post angioplasty on 3 occasions Status post coronary artery bypass graft (Chronic) 3 vessel CABG per pt in 2014? Diabetes mellitus, type 2 (Chronic) historically poorly controlled due to non-compliance GERD (gastroesophageal reflux disease) (Chronic) Hyperlipidemia (Chronic) CAD (coronary artery disease) (Chronic) - Past Surgical History Surgical History: coronary bypass surgery, - - Benign soft tissue tumor resection, CABG x 3, PCI x 1, BL tunnel surgery, bilateral lower extremity venous intervention unclear type. - Social History Smoking Status: Former smoker Drugs: - - Family History Maternal Family History: Family History (Last Reviewed 05/26/20 @ 18:[address] Kathia Barney MD) Brother Diabetes Mother Hypertension Daughter Diabetes History Items: - - Patient notes that his mother was healthy and denies any history of heart disease, diabetes or cancer, passed at age 93. Paternal Family History: Family History (Last Reviewed 05/26/20 @ 18:[address] Kathia Barney MD) Brother Diabetes Mother Hypertension Daughter Diabetes History Items: - - Patient notes that his father was healthy with no history of heart disease, diabetes or cancer, passed at age 89 secondary to brain aneurysm rupture. Review of Systems Eyes: Reports: - - The review of systems is otherwise negative unless noted in the HPI Patient Problems: Active and Suspected Problems (Last Reviewed 05/26/20 @ 18:[address] Kathia Barney MD) Aspiration into airway (Acute) Frequent falls (Acute) Generalized weakness (Acute) Debility (Acute) Frequent falls (Acute) - Physical Exam Vitals/I&O's: Vital Signs Temp Pulse Resp BP Pulse Ox 98.0 F 83 28 H 144/68 H 95 10/19/20 14:14 05/29/20 14:17 05/29/20 14:14 05/29/20 14:17 05/29/20 14:14 Oxygen Flow Rate (L/min) 2 Oxygen Delivery Method Room Air Weight: 68.492 kg Body Mass Index (BMI) 23.0 Finger Stick Blood Glucose 480 Intake and Output for Last 24 Hours 05/27/20 05/28/20 05/29/20 23:59 23:59 23:59 Intake Total 390 / 390 600 / 600 Balance 390 / 390 600 / 600 General: Alert, Cooperative, No apparent distress HEENT: Atraumatic, Normocephalic Oral: Moist Mucosa Neck: Supple, Trachea Midline Lungs: Clear to auscultation, Normal air movement Cardiovascular: Regular rate, Regular Rhythm Abdomen: Bowel Sounds Present, Soft Extremities: No edema Laboratory Results 05/28/20 17:13: POC Glucose 102 05/28/20 21:06: POC Glucose 155 H 05/29/20 06:45: Sodium 141, Potassium 4.5, Chloride 102, Carbon Dioxide 26.0, Anion Gap 13, BUN 92 H, Creatinine 8.33 H*, Estim Creat Clear Calc 7.87, Est GFR (MDRD) Af Amer 8 L, Est GFR (MDRD) Non-Af 7 L, BUN/Creatinine Ratio 11.0, Glucose 115 H, Calcium 8.1 L 05/29/20 07:35: POC Glucose 112 H 05/29/20 11:32: POC Glucose 140 H Current Medications Acetaminophen (Acetaminophen 325 Mg Tablet) 650 mg PO Q6H PRN PRN PRN Reason: Pain Score 1-10/Temp > 100.7 F Last Admin: 05/27/20 05:50 Dose: 650 mg Documented by: Amlodipine Besylate (Amlodipine 5 Mg Tablet) 5 mg PO DAILY [facility] Last Admin: 05/29/20 11:00 Dose: 5 mg Documented by: Aspirin (Aspirin 81 Mg Tab.Chew) 81 mg PO DAILY@0800 [facility] Last Admin: 05/29/20 08:44 Dose: 81 mg Documented by: Atorvastatin Calcium (Atorvastatin Calcium 80 Mg Tablet) 80 mg PO DAILY@2200 [facility] Last Admin: 05/28/20 20:53 Dose: 80 mg Documented by: Ferrous Sulfate (Ferrous Sulfate 325 Mg Tablet) 325 mg PO DAILY@1200 [facility] Last Admin: 05/29/20 10:59 Dose: 325 mg Documented by: Finasteride (Finasteride 5 Mg Tablet) 5 mg PO DAILY [facility] Last Admin: 05/29/20 10:59 Dose: 5 mg Documented by: Heparin Sodium (Porcine) (Heparin Injection (Vial) 5,000 Unit/Ml Vial) 5,000 unit SC Q8 [facility] Last Admin: 05/29/20 14:17 Dose: 5,000 unit Documented by: Hydralazine HCl (Hydralazine 50 Mg Tablet) 50 mg PO TID [facility] Last Admin: 05/29/20 14:17 Dose: 50 mg Documented by: Sodium Chloride () 250 mls @ 15 mls/hr IV .[id number] PRN PRN Reason: Saline Flush Sodium Chloride () 250 mls @ 15 mls/hr IV .[id number] PRN PRN Reason: Additional IVPB Infusion Insulin Glargine (Insulin Glargine 100 Units/Ml Pen) 10 units SC 0700 [facility] Last Admin: 05/29/20 08:43 Dose: 10 units Documented by: Insulin Human Lispro (Insulin Lispro 100 Unit/Ml Insuln.Pen) 0 unit SC ACHS [facility]; Protocol Last Admin: 05/29/20 11:49 Dose: Not Given Documented by: Levetiracetam (Levetiracetam 500 Mg Tablet) 500 mg PO BID [facility] Last Admin: 05/29/20 10:59 Dose: 500 mg Documented by: Ondansetron HCl (Ondansetron 4 Mg/2 Ml Vial) 4 mg IV Q8H PRN PRN PRN Reason: NAUSEA/VOMITING Pantoprazole Sodium (Pantoprazole Sodium 40 Mg Tablet) 40 mg PO DAILY [facility] Last Admin: 05/29/20 10:59 Dose: 40 mg Documented by: Senna/Docusate Sodium (Senna/Docusate Sodium 1 Tablet) 2 tablet PO BID PRN PRN PRN Reason: Constipation Sodium Chloride (0.9% Saline Lock 10 Ml Syringe) 10 - 40 ml IV UD PRN PRN Reason: SALINE FLUSH Last Admin: 05/27/20 00:05 Dose: 10 ml Documented by: Tamsulosin HCl (Tamsulosin Hcl 0.4 Mg Capsule) 0.4 mg PO BID [facility] Last Admin: 05/29/20 10:59 Dose: 0.4 mg Documented by: Torsemide (Torsemide 100 Mg Tablet) 100 mg PO DAILY [facility] Last Admin: 05/29/20 11:00 Dose: 100 mg Documented by: Zolpidem Tartrate (Zolpidem Tartrate 5 Mg Tablet) 5 mg PO QHS PRN PRN PRN Reason: INSOMNIA Assessment/Plan All Active Problems (Last Reviewed 05/26/20 @ 18:[address] Kathia Barney MD) Aspiration into airway (Acute) Frequent falls (Acute) Generalized weakness (Acute) Debility (Acute) Frequent falls (Acute) ESRD continue Friday dialysis for dialysis today Anemia monitor RORY with HD HTN continue meds controlled Physical deconditioning multifactorial awaiting placement
[2020-05-29] MEDS: Epoetin Alfa epbx 10,000 UNITS/ML 5000 UNIT IV (16:23)
[2020-05-29] MEDS: Heparin 10,000 UNITS/10 ML Vial 2000 UNITS IV (16:25)
[2020-05-29] MEDS: Heparin 10,000 UNITS/10 ML Vial 3600 UNITS IV (18:41)
[2020-05-29 18:50] LABS: Bedside Glucose 105 mg/dL (70-110)
--- NOTE | 2020-05-29 19:09 | DIALYSIS ---
Hemodialysis completed as ordered. -1100ml off. stable t/o. CVC dressing changed. CVC closed with heparin to each lumen fill volume. Report to primary RN. See flowsheet for details.
[2020-05-29] MEDS: Atorvastatin Calcium 80 MG Tablet PO (21:23)
[2020-05-29 21:36] LABS: Bedside Glucose 101 mg/dL (70-110)
[2020-05-30] VITALS (9 sets, daily range): BP systolic 125–152; BP diastolic 52–76; PULSE 64–98; RESP 17–20; TEMP 36.4–37.1; O2SAT 93–95
[2020-05-30] MEDS: Acetaminophen 325 MG Tablet 650 MG PO (02:51)
[2020-05-30] MEDS: 0.9% Saline Lock 10 ML Syringe IV (02:51)
[2020-05-30] MEDS: hydrALAZINE 50 MG Tablet PO ×3 (05:54→21:57)
[2020-05-30] MEDS: Heparin Injection (Vial) 5,000 UNIT/ML VIAL 5000 UNIT SC ×3 (05:56→21:57)
[2020-05-30 06:12] LABS: Hematocrit 30.1 % (40-54); Hemoglobin 9.6 g/dL (13.0-16.5); Mean Corp Hgb Conc 31.9 g/dL (32-36); Mean Corpuscular Hgb 28.9 pg (27.0-32.0); Mean Corpuscular Volume 90.7 fL (80-94); Mean Platelet Vol. 9.2 fl (6.2-12.0); Platelet Count 232 K/mm3 (150-450); RBC Distribution Width CV 13.3 % (11.6-14.6); RBC Distribution Width SD 44.1 fl (35.1-43.9); Red Blood Count 3.32 M/mm3 (4.6-6.2); White Blood Count 7.7 K/mm3 (4.4-11.0)
[2020-05-30 06:35] LABS: Anion Gap 8 (5-15); BUN 40 mg/dL (7-18); Calcium,Total 8.2 mg/dL (8.5-10.1); Chloride 99 mmol/L (98-107); Creatinine, Serum 5.01 mg/dL (0.70-1.30); EST Glomerular Filtration Rate 12 mL/min (>60); Est Glom Filt Rate - Afr Amer 15 mL/min (>60); Estimated Creatinine Clearance 13.08 ml/min; Glucose 100 mg/dL (74-106); Magnesium 2.1 mg/dL (1.6-2.6); Potassium 4.1 mmol/L (3.5-5.1); Sodium Level 136 mmol/L (136-145)
--- NOTE | 2020-05-30 07:42 | PN_ITS ---
Patient Problems: Active and Suspected Problems (Last Reviewed 05/26/20 @ 18:[address] Kathia Barney MD) Aspiration into airway (Acute) Frequent falls (Acute) Generalized weakness (Acute) Debility (Acute) Frequent falls (Acute) Reason for Visit: Physical debility Subjective: Patient seen, patient much more interactive compared to the previous day. Patient was denied by his insurance company regarding transfer to long term facility. Did appeal through [employer] he was denied again. The insurance company however requested for another peer to peer. Objective: GENERAL: cooperative HEENT: Atraumatic; EYES; Anicteric, Normal Conjunctiva NECK; supple, normal thyroid, RESPIRATORY: Diminished to auscultation CARDIOVASCULAR: Regular S1 S2, GI: soft, normoactive bowel sounds, : No Renal angle tenderness; EXTREMITIES: No edema, no clubbing, MUSCULOSKELETAL: no muscle waisting NEURO: Awake; no lateralizing signs. SKIN: No Rash PSYCH; Flat affect Vitals/I&O's: Vital Signs Temp Pulse Resp BP Pulse Ox 97.9 F 64 20 H 136/67 H 94 05/30/20 02:48 05/30/20 05:54 05/30/20 02:48 05/30/20 05:54 05/30/20 02:48 Oxygen Flow Rate (L/min) 2 Oxygen Delivery Method Room Air Weight: 68.492 kg Body Mass Index (BMI) 23.0 Finger Stick Blood Glucose 480 Intake and Output for Last 24 Hours 05/28/20 05/29/20 05/30/20 23:59 23:59 23:59 Intake Total 600 / 600 150 / 150 Output Total 1100 / 1100 Balance 600 / 600 -1100 / -1000 150 / 150 Laboratory Results 05/29/20 07:35: POC Glucose 112 H 05/29/20 11:32: POC Glucose 140 H 05/29/20 18:01: POC Glucose 105 05/29/20 21:17: POC Glucose 101 05/30/20 06:06: WBC 7.7, RBC 3.32 L, Hgb 9.6 L, Hct 30.1 L, MCV 90.7, MCH 28.9, MCHC 31.9 L, RDW Std Deviation 44.1 H, RDW Coeff of Arturo 13.3, Plt Count 232, MPV 9.2 05/30/20 06:06: Sodium 136, Potassium 4.1, Chloride 99, Carbon Dioxide 29.0, Anion Gap 8, BUN 40 H, Creatinine 5.01 H, Estim Creat Clear Calc 13.08, Est GFR (MDRD) Af Amer 15 L, Est GFR (MDRD) Non-Af 12 L, BUN/Creatinine Ratio 8.0 L, Glucose 100, Calcium 8.2 L, Magnesium 2.1 Current Medications Acetaminophen (Acetaminophen 325 Mg Tablet) 650 mg PO Q6H PRN PRN PRN Reason: Pain Score 1-10/Temp > 100.7 F Last Admin: 05/30/20 02:51 Dose: 650 mg Documented by: Amlodipine Besylate (Amlodipine 5 Mg Tablet) 5 mg PO DAILY [facility] Last Admin: 05/29/20 11:00 Dose: 5 mg Documented by: Aspirin (Aspirin 81 Mg Tab.Chew) 81 mg PO DAILY@0800 [facility] Last Admin: 05/29/20 08:44 Dose: 81 mg Documented by: Atorvastatin Calcium (Atorvastatin Calcium 80 Mg Tablet) 80 mg PO DAILY@2200 [facility] Last Admin: 05/29/20 21:23 Dose: 80 mg Documented by: Ferrous Sulfate (Ferrous Sulfate 325 Mg Tablet) 325 mg PO DAILY@1200 [facility] Last Admin: 05/29/20 10:59 Dose: 325 mg Documented by: Finasteride (Finasteride 5 Mg Tablet) 5 mg PO DAILY [facility] Last Admin: 05/29/20 10:59 Dose: 5 mg Documented by: Heparin Sodium (Porcine) (Heparin Injection (Vial) 5,000 Unit/Ml Vial) 5,000 unit SC Q8 [facility] Last Admin: 05/30/20 05:56 Dose: 5,000 unit Documented by: Hydralazine HCl (Hydralazine 50 Mg Tablet) 50 mg PO TID [facility] Last Admin: 05/30/20 05:54 Dose: 50 mg Documented by: Sodium Chloride () 250 mls @ 15 mls/hr IV .[id number] PRN PRN Reason: Saline Flush Sodium Chloride () 250 mls @ 15 mls/hr IV .[id number] PRN PRN Reason: Additional IVPB Infusion Insulin Glargine (Insulin Glargine 100 Units/Ml Pen) 10 units SC 0700 [facility] Last Admin: 05/29/20 08:43 Dose: 10 units Documented by: Insulin Human Lispro (Insulin Lispro 100 Unit/Ml Insuln.Pen) 0 unit SC [facility]; Protocol Last Admin: 05/29/20 21:18 Dose: Not Given Documented by: Levetiracetam (Levetiracetam 500 Mg Tablet) 500 mg PO BID [facility] Last Admin: 05/29/20 21:23 Dose: 500 mg Documented by: Ondansetron HCl (Ondansetron 4 Mg/2 Ml Vial) 4 mg IV Q8H PRN PRN PRN Reason: NAUSEA/VOMITING Pantoprazole Sodium (Pantoprazole Sodium 40 Mg Tablet) 40 mg PO DAILY [facility] Last Admin: 05/29/20 10:59 Dose: 40 mg Documented by: Senna/Docusate Sodium (Senna/Docusate Sodium 1 Tablet) 2 tablet PO BID PRN PRN PRN Reason: Constipation Sodium Chloride (0.9% Saline Lock 10 Ml Syringe) 10 - 40 ml IV UD PRN PRN Reason: SALINE FLUSH Last Admin: 05/30/20 02:51 Dose: 10 ml Documented by: Tamsulosin HCl (Tamsulosin Hcl 0.4 Mg Capsule) 0.4 mg PO BID [facility] Last Admin: 05/29/20 21:23 Dose: 0.4 mg Documented by: Torsemide (Torsemide 100 Mg Tablet) 100 mg PO DAILY [facility] Last Admin: 05/29/20 11:00 Dose: 100 mg Documented by: Zolpidem Tartrate (Zolpidem Tartrate 5 Mg Tablet) 5 mg PO QHS PRN PRN PRN Reason: INSOMNIA STROKE Vital Signs/Narrative: Vital Signs Pulse BP 05/30/20 05:54 64 136/67 H Medical Necessity - Tobacco Use Smoking Status: Former smoker Tobacco Use: Cigarettes Assessment/Plan All Active Problems (Last Reviewed 05/26/20 @ 18:[address] Kathia Bareny MD) Aspiration into airway (Acute) Frequent falls (Acute) Generalized weakness (Acute) Debility (Acute) Frequent falls (Acute) Patient is a 69-year-old gentleman with multiple comorbidities including end- stage renal disease presented with progressive generalized weakness 1. Physical deconditioning due to multiple medical comorbidities including end- stage renal disease, CVA diabetes mellitus type 2 -Admitted to regular nursing floor - Requested for PT OT eval and social worker health services to assist with discharge planning -05/20/2020; patient was denied by his insurance company regarding transfer to long term facility did appeal patient was denied again. Insurance company requested for another peer to peer. Patient kept informed of the above 2. End-stage renal disease ?Patient on hemodialysis on Wednesdays and Fridays consult placed to nephrology for dialysis orders 3. Seizure disorder ?Patient is on Keppra did continue with home meds 4. Hypertension - Blood pressure controlled, home medications continued with dose adjustment as needed 5. Recurrent falls ?With previous history of subdural hemorrhage, intracerebral hemorrhage and intraventricular hemorrhage and subarachnoid hemorrhage following a fall 6. Coronary artery disease ?With history of CABG 7. Diabetes mellitus type II -Complications including end-stage renal disease. Currently managed with diet 8. BPH ?Patient on tamsulosin 9. Dyslipidemia -Patient is on statin therapy, continued at home dose 10. DVT prophylaxis ?On SC heparin Inpatient E&M: 21608 Subs Hosp L2
[2020-05-30] MEDS: Pantoprazole Sodium 40 MG Tablet PO (08:52)
[2020-05-30] MEDS: amLODIPine 5 MG Tablet PO (08:52)
[2020-05-30] MEDS: levETIRAcetam 500 MG Tablet PO ×2 (08:52→21:57)
[2020-05-30] MEDS: Torsemide 100 MG Tablet PO (08:53)
[2020-05-30] MEDS: Tamsulosin HCl 0.4 MG Capsule PO ×2 (08:53→21:57)
[2020-05-30] MEDS: Finasteride 5 MG Tablet PO (08:53)
[2020-05-30] MEDS: Aspirin 81 MG TAB.CHEW PO (08:53)
[2020-05-30 10:56] LABS: Bedside Glucose 109 mg/dL (70-110)
[2020-05-30] MEDS: Ferrous Sulfate 325 MG Tablet PO (10:58)
[2020-05-30] MEDS: Insulin Lispro 100 UNIT/ML INSULN.PEN SC (10:58)
[2020-05-30 11:10] LABS: Bedside Glucose 201 mg/dL (70-110)
--- NOTE | 2020-05-30 14:31 | PN.RENAL_ITS ---
Patient Problems: Active and Suspected Problems (Last Reviewed 05/26/20 @ 18:[address] Kathia Barney MD) Aspiration into airway (Acute) Frequent falls (Acute) Generalized weakness (Acute) Debility (Acute) Frequent falls (Acute) Subjective: some anxiety and not feeling well but denies specifically cp/sob/chills /n/v/d/abd pain - Physical Exam Vitals/I&O's: Vital Signs Temp Pulse Resp BP Pulse Ox 97.9 F 65 18 125/52 H 95 05/30/20 08:38 05/30/20 08:38 05/30/20 08:38 05/30/20 08:38 05/30/20 08:38 Oxygen Flow Rate (L/min) 2 Oxygen Delivery Method Room Air Weight: 68.492 kg Body Mass Index (BMI) 23.0 Finger Stick Blood Glucose 480 Intake and Output for Last 24 Hours 05/28/20 05/29/20 05/30/20 23:59 23:59 23:59 Intake Total 600 / 600 350 / 350 Output Total 1100 / 1100 0 / 0 Balance 600 / 600 -1100 / -1000 350 / 350 General: Alert, Cooperative HEENT: Atraumatic, Normocephalic Neck: Supple Lungs: Clear to auscultation, Normal air movement Cardiovascular: Normal S1, Normal S2 Abdomen: Bowel Sounds Present, Soft, Non Tender Extremities: No edema Laboratory Results 05/29/20 18:01: POC Glucose 105 05/29/20 21:17: POC Glucose 101 05/30/20 06:06: WBC 7.7, RBC 3.32 L, Hgb 9.6 L, Hct 30.1 L, MCV 90.7, MCH 28.9, MCHC 31.9 L, RDW Std Deviation 44.1 H, RDW Coeff of Arturo 13.3, Plt Count 232, MPV 9.2 05/30/20 06:06: Sodium 136, Potassium 4.1, Chloride 99, Carbon Dioxide 29.0, Anion Gap 8, BUN 40 H, Creatinine 5.01 H, Estim Creat Clear Calc 13.08, Est GFR (MDRD) Af Amer 15 L, Est GFR (MDRD) Non-Af 12 L, BUN/Creatinine Ratio 8.0 L, Glucose 100, Calcium 8.2 L, Magnesium 2.1 05/30/20 08:36: POC Glucose 109 05/30/20 10:56: POC Glucose 201 H Current Medications Acetaminophen (Acetaminophen 325 Mg Tablet) 650 mg PO Q6H PRN PRN PRN Reason: Pain Score 1-10/Temp > 100.7 F Last Admin: 05/30/20 02:51 Dose: 650 mg Documented by: Amlodipine Besylate (Amlodipine 5 Mg Tablet) 5 mg PO DAILY [facility] Last Admin: 05/30/20 08:52 Dose: 5 mg Documented by: Aspirin (Aspirin 81 Mg Tab.Chew) 81 mg PO DAILY@0800 [facility] Last Admin: 05/30/20 08:53 Dose: 81 mg Documented by: Atorvastatin Calcium (Atorvastatin Calcium 80 Mg Tablet) 80 mg PO DAILY@2200 [facility] Last Admin: 05/29/20 21:23 Dose: 80 mg Documented by: Ferrous Sulfate (Ferrous Sulfate 325 Mg Tablet) 325 mg PO DAILY@1200 [facility] Last Admin: 05/30/20 10:58 Dose: 325 mg Documented by: Finasteride (Finasteride 5 Mg Tablet) 5 mg PO DAILY [facility] Last Admin: 05/30/20 08:53 Dose: 5 mg Documented by: Heparin Sodium (Porcine) (Heparin Injection (Vial) 5,000 Unit/Ml Vial) 5,000 unit SC Q8 [facility] Last Admin: 05/30/20 05:56 Dose: 5,000 unit Documented by: Hydralazine HCl (Hydralazine 50 Mg Tablet) 50 mg PO TID [facility] Last Admin: 05/30/20 05:54 Dose: 50 mg Documented by: Sodium Chloride () 250 mls @ 15 mls/hr IV .[id number] PRN PRN Reason: Saline Flush Sodium Chloride () 250 mls @ 15 mls/hr IV .[id number] PRN PRN Reason: Additional IVPB Infusion Insulin Glargine (Insulin Glargine 100 Units/Ml Pen) 10 units SC 0700 [facility] Last Admin: 05/30/20 08:37 Dose: Not Given Documented by: Insulin Human Lispro (Insulin Lispro 100 Unit/Ml Insuln.Pen) 0 unit SC ACHS [facility]; Protocol Last Admin: 05/30/20 10:58 Dose: 2 units Documented by: Levetiracetam (Levetiracetam 500 Mg Tablet) 500 mg PO BID [facility] Last Admin: 05/30/20 08:52 Dose: 500 mg Documented by: Ondansetron HCl (Ondansetron 4 Mg/2 Ml Vial) 4 mg IV Q8H PRN PRN PRN Reason: NAUSEA/VOMITING Pantoprazole Sodium (Pantoprazole Sodium 40 Mg Tablet) 40 mg PO DAILY [facility] Last Admin: 05/30/20 08:52 Dose: 40 mg Documented by: Senna/Docusate Sodium (Senna/Docusate Sodium 1 Tablet) 2 tablet PO BID PRN PRN PRN Reason: Constipation Sodium Chloride (0.9% Saline Lock 10 Ml Syringe) 10 - 40 ml IV UD PRN PRN Reason: SALINE FLUSH Last Admin: 05/30/20 02:51 Dose: 10 ml Documented by: Tamsulosin HCl (Tamsulosin Hcl 0.4 Mg Capsule) 0.4 mg PO BID [facility] Last Admin: 05/30/20 08:53 Dose: 0.4 mg Documented by: Torsemide (Torsemide 100 Mg Tablet) 100 mg PO DAILY [facility] Last Admin: 05/30/20 08:53 Dose: 100 mg Documented by: Zolpidem Tartrate (Zolpidem Tartrate 5 Mg Tablet) 5 mg PO QHS PRN PRN PRN Reason: INSOMNIA Medical Necessity - Tobacco Use Smoking Status: Former smoker Tobacco Use: Cigarettes Assessment/Plan All Active Problems (Last Reviewed 05/26/20 @ 18:[address] Kathia Barney MD) Aspiration into airway (Acute) Frequent falls (Acute) Generalized weakness (Acute) Debility (Acute) Frequent falls (Acute) ESRD continue Friday dialysis for dialysis tomorrow Anemia monitor RORY with HD HTN continue meds controlled Physical deconditioning multifactorial awaiting placement
--- NOTE | 2020-05-30 15:28 | CASEMGMT ---
Social Work Note SW received message from Charlene at [facility] stating pt's case went to Medical review and physician is requesting more medical documents and peer to peer. SW updated physician. SW in to speak with pt and updated pt that it appears pt will get denied for SNF. Pt requested to call his insurance ([employer]). SW in pt's room and assisted pt with calling [employer]. Pt requesting physician do peer to peer as pt is adamant he feels he needs SNF. Physician updated, agreeable to peer to peer. SW called [employer] [phone] option 5 and transferred call to physician for peer to peer. SW updated that [employer] is going to deny pt as pt doesn't meet SNF level of care. [facility] states pt meets senior living, assisted living or home with [facility] level of care. SW back in to speak with pt that pt will get denied SNF. Pt again called his insurance [employer]. SW and pt on phone with [employer] for quite some time. [employer] states once they receive denial from [employer] it will show up in their system as being denied and either pt or medical provider can appeal denial. [employer] states appeal will be done faster if medical provider does appeal. [employer] states if pt appeals pt will need to write [employer] a letter requesting appeal for denial. [employer] number [phone]. [employer] appeal number [phone] and [employer] [facility] fax number [phone]. SW then received call from Ayana at [facility] stating she got the denial letter from [employer]. Physician has option to complete appeal on denial. Appeal number option 3. Reference number [id number]. SW updated physician that denial can be appealed. Physician agreeable to Appeal Denial. HEIDI placed a call to [employer] and spoke with Elaine. HEIDI initiated appeal for denial process with Elaine at [facility]. Appeal is to decide if denial for SNF will be upheld or if decision will be changed. HEIDI provided contact information for both this worker, [facility], and physician. Per Elaine's with [facility]'s request, HEIDI reviewed medical records, PT/OT records with Elaine. HEIDI specifically asked Elaine if [employer] needed to speak with physician regarding appeal and Elaine stated at this time no. Elaine states the appeal has been initiated and it will be sent to clinical team to review. Elaine states if the clinical review needs additional information they will call this worker, [facility] or physician. Elaine states once a decision has been determined, clinical team will call [facility]. Elaine states the clinical team has up to 72 hours for appeal decision. HEIDI updated physician. HEIDI updated Ayana at [facility]. HEIDI updated Ayana that this worker will also begin Pending Medicaid process for pt in the event denial is upheld and pt will need to come to [facility] under pending medicaid. Ayana states understanding. SW back in to speak with pt and updated pt that appeal has been initiated regarding pt's denial. Pt thanked this worker, still adamant that he needs SNF. Pt states that about three weeks ago he decided to take a vacation to see his daughter in [place] and pt got sick on the ride home. Pt states that he had to stay in a hospital in [place] and then at his daughters home for a few days and then was brought back to his home in [place], [place]. Pt states that he has his own home in [place] and he lives with his . Pt states that his isn't much support though as pt's had a nervous breakdown when pt went out to [place]. Pt states his Daxa had to be hospitalized in [place] and just got out of the hospital. Pt does state that his daughter and his grandson are good support for him. SW provided support to pt. Pt states he tried to get into [facility] when he came back home from [place] but was denied. HEIDI explained that physician is agreeable to trying to appeal pt's denial with [employer] and spoke with pt about pt applying for Medicaid and going to [facility] under pending Medicaid in the event denial is upheld. Pt agreeable to completing Medicaid application. SW assisted pt with completed Medicaid application. Pt again thanked this worker. HEIDI [facility]. HEIDI placed a call to Eve Taylor at [facility] and updated her that application was being faxed and pt will need pending medicaid number. Eve states understanding. Plan: [facility] pending Appeal with [employer]. Human has up to 72 hours to complete appeal and let [facility] know a decision. If pt's denial is upheld SW will try to get pt to [facility] under Pending Medicaid. Pt would need LOC under pending Medicaid. Alysia De Luna MOBILE HOMES REPAIRER, [employer] ETCHER
[2020-05-30 17:10] LABS: Bedside Glucose 131 mg/dL (70-110)
[2020-05-30] MEDS: Atorvastatin Calcium 80 MG Tablet PO (21:57)
[2020-05-30] MEDS: Zolpidem Tartrate 5 MG Tablet PO (22:16)
[2020-05-30] MEDS: guaiFENesin/Codeine 5 ML UDC PO (22:16)
[2020-05-30 23:06] LABS: Bedside Glucose 122 mg/dL (70-110)
[2020-05-31] VITALS (10 sets, daily range): BP systolic 119–169; BP diastolic 52–89; PULSE 69–92; RESP 16–18; TEMP 36.7–37.3; O2SAT 92–95
[2020-05-31 05:47] LABS: Hematocrit 29.6 % (40-54); Hemoglobin 9.6 g/dL (13.0-16.5); Mean Corp Hgb Conc 32.4 g/dL (32-36); Mean Corpuscular Volume 89.4 fL (80-94); Mean Platelet Vol. 9.5 fl (6.2-12.0); Platelet Count 240 K/mm3 (150-450); RBC Distribution Width CV 13.1 % (11.6-14.6); RBC Distribution Width SD 43.5 fl (35.1-43.9); Red Blood Count 3.31 M/mm3 (4.6-6.2); White Blood Count 8.4 K/mm3 (4.4-11.0)
[2020-05-31 06:11] LABS: Anion Gap 12 (5-15); BUN 56 mg/dL (7-18); BUN/Creat Ratio 8.4 RATIO (10-20); Calcium,Total 8.5 mg/dL (8.5-10.1); Chloride 98 mmol/L (98-107); Creatinine, Serum 6.67 mg/dL (0.70-1.30); EST Glomerular Filtration Rate 9 mL/min (>60); Est Glom Filt Rate - Afr Amer 11 mL/min (>60); Estimated Creatinine Clearance 9.83 ml/min; Glucose 111 mg/dL (74-106); Potassium 4.1 mmol/L (3.5-5.1); Sodium Level 136 mmol/L (136-145)
[2020-05-31] MEDS: hydrALAZINE 50 MG Tablet PO ×3 (06:30→21:03)
[2020-05-31] MEDS: Heparin Injection (Vial) 5,000 UNIT/ML VIAL 5000 UNIT SC ×3 (06:30→21:02)
[2020-05-31 06:40] LABS: Bedside Glucose 103 mg/dL (70-110)
--- NOTE | 2020-05-31 07:37 | PN_ITS ---
Patient Problems: Active and Suspected Problems (Last Reviewed 05/26/20 @ 18:[address] Kathia Barney MD) Aspiration into airway (Acute) Frequent falls (Acute) Generalized weakness (Acute) Debility (Acute) Frequent falls (Acute) Reason for Visit: Physical deconditioning. Subjective: Patient was denied by his insurance company regarding the transfer to a intermediate facility. Awaiting an appeal with subsequent peer to peer discussion. Objective: GENERAL: cooperative HEENT: Atraumatic; EYES; Anicteric, Normal Conjunctiva NECK; supple, normal thyroid, RESPIRATORY: Diminished to auscultation CARDIOVASCULAR: Regular S1 S2, GI: soft, normoactive bowel sounds, : No Renal angle tenderness; EXTREMITIES: No edema, no clubbing, MUSCULOSKELETAL: no muscle waisting NEURO: Awake; no lateralizing signs. SKIN: No Rash PSYCH; Flat affect Vitals/I&O's: Vital Signs Temp Pulse Resp BP Pulse Ox 98.7 F 72 18 144/89 H 92 05/31/20 02:44 05/31/20 06:30 05/31/20 02:44 05/31/20 02:44 05/31/20 02:44 Oxygen Flow Rate (L/min) 2 Oxygen Delivery Method Room Air Weight: 68.492 kg Body Mass Index (BMI) 23.0 Finger Stick Blood Glucose 480 Intake and Output for Last 24 Hours 05/29/20 05/30/20 05/31/20 23:59 23:59 23:59 Intake Total 350 / 350 400 / 400 Output Total 1100 / 1100 0 / 0 100 / 100 Balance -1100 / -1000 350 / 350 300 / 300 Laboratory Results 05/30/20 08:36: POC Glucose 109 05/30/20 10:56: POC Glucose 201 H 05/30/20 16:45: POC Glucose 131 H 05/30/20 21:53: POC Glucose 122 H 05/31/20 05:32: WBC 8.4, RBC 3.31 L, Hgb 9.6 L, Hct 29.6 L, MCV 89.4, MCH 29.0, MCHC 32.4, RDW Std Deviation 43.5, RDW Coeff of Arturo 13.1, Plt Count 240, MPV 9.5 05/31/20 05:32: Sodium 136, Potassium 4.1, Chloride 98, Carbon Dioxide 26.0, Anion Gap 12, BUN 56 H, Creatinine 6.67 H, Estim Creat Clear Calc 9.83, Est GFR (MDRD) Af Amer 11 L, Est GFR (MDRD) Non-Af 9 L, BUN/Creatinine Ratio 8.4 L, Glucose 111 H, Calcium 8.5 05/31/20 06:28: POC Glucose 103 Current Medications Acetaminophen (Acetaminophen 325 Mg Tablet) 650 mg PO Q6H PRN PRN PRN Reason: Pain Score 1-10/Temp > 100.7 F Last Admin: 05/30/20 02:51 Dose: 650 mg Documented by: Amlodipine Besylate (Amlodipine 5 Mg Tablet) 5 mg PO DAILY [facility] Last Admin: 05/30/20 08:52 Dose: 5 mg Documented by: Aspirin (Aspirin 81 Mg Tab.Chew) 81 mg PO DAILY@0800 [facility] Last Admin: 05/30/20 08:53 Dose: 81 mg Documented by: Atorvastatin Calcium (Atorvastatin Calcium 80 Mg Tablet) 80 mg PO DAILY@2200 [facility] Last Admin: 05/30/20 21:57 Dose: 80 mg Documented by: Ferrous Sulfate (Ferrous Sulfate 325 Mg Tablet) 325 mg PO DAILY@1200 [facility] Last Admin: 05/30/20 10:58 Dose: 325 mg Documented by: Finasteride (Finasteride 5 Mg Tablet) 5 mg PO DAILY [facility] Last Admin: 05/30/20 08:53 Dose: 5 mg Documented by: Guaifenesin/Codeine Phosphate (Guaifenesin/Codeine 5 Ml Udc) 5 ml PO Q6H PRN PRN PRN Reason: COUGH/CONGESTION Last Admin: 05/30/20 22:16 Dose: 5 ml Documented by: Heparin Sodium (Porcine) (Heparin Injection (Vial) 5,000 Unit/Ml Vial) 5,000 unit SC Q8 [facility] Last Admin: 05/31/20 06:30 Dose: 5,000 unit Documented by: Hydralazine HCl (Hydralazine 50 Mg Tablet) 50 mg PO TID [facility] Last Admin: 05/31/20 06:30 Dose: 50 mg Documented by: Sodium Chloride () 250 mls @ 15 mls/hr IV .[id number] PRN PRN Reason: Saline Flush Sodium Chloride () 250 mls @ 15 mls/hr IV .[id number] PRN PRN Reason: Additional IVPB Infusion Insulin Glargine (Insulin Glargine 100 Units/Ml Pen) 10 units SC 0700 [facility] Last Admin: 05/31/20 06:31 Dose: 10 units Documented by: Insulin Human Lispro (Insulin Lispro 100 Unit/Ml Insuln.Pen) 0 unit SC ACHS [facility]; Protocol Last Admin: 05/31/20 06:29 Dose: Not Given Documented by: Levetiracetam (Levetiracetam 500 Mg Tablet) 500 mg PO BID [facility] Last Admin: 05/30/20 21:57 Dose: 500 mg Documented by: Ondansetron HCl (Ondansetron 4 Mg/2 Ml Vial) 4 mg IV Q8H PRN PRN PRN Reason: NAUSEA/VOMITING Pantoprazole Sodium (Pantoprazole Sodium 40 Mg Tablet) 40 mg PO DAILY [facility] Last Admin: 05/30/20 08:52 Dose: 40 mg Documented by: Senna/Docusate Sodium (Senna/Docusate Sodium 1 Tablet) 2 tablet PO BID PRN PRN PRN Reason: Constipation Sodium Chloride (0.9% Saline Lock 10 Ml Syringe) 10 - 40 ml IV UD PRN PRN Reason: SALINE FLUSH Last Admin: 05/30/20 02:51 Dose: 10 ml Documented by: Tamsulosin HCl (Tamsulosin Hcl 0.4 Mg Capsule) 0.4 mg PO BID [facility] Last Admin: 05/30/20 21:57 Dose: 0.4 mg Documented by: Torsemide (Torsemide 100 Mg Tablet) 100 mg PO DAILY [facility] Last Admin: 05/30/20 08:53 Dose: 100 mg Documented by: Zolpidem Tartrate (Zolpidem Tartrate 5 Mg Tablet) 5 mg PO QHS PRN PRN PRN Reason: INSOMNIA Last Admin: 05/30/20 22:16 Dose: 5 mg Documented by: STROKE Vital Signs/Narrative: Vital Signs Pulse 05/31/20 06:30 72 Medical Necessity - Tobacco Use Smoking Status: Former smoker Tobacco Use: Cigarettes Assessment/Plan All Active Problems (Last Reviewed 05/26/20 @ 18:[address] Kathia Barney MD) Aspiration into airway (Acute) Frequent falls (Acute) Generalized weakness (Acute) Debility (Acute) Frequent falls (Acute) Patient is a 69-year-old gentleman with multiple comorbidities including end- stage renal disease presented with progressive generalized weakness 1. Physical deconditioning due to multiple medical comorbidities including end- stage renal disease, CVA diabetes mellitus type 2 -Admitted to regular nursing floor - Requested for PT OT eval and social media intern to assist with discharge planning -05/30/2020; patient was denied by his insurance company regarding transfer to intermediate facility did appeal patient was denied again. Insurance company requested for another peer to peer. Patient kept informed of the above -05/01/2020: Awaiting second peer to peer discussion with patient's insurance company. 2. End-stage renal disease ?Patient on hemodialysis on Wednesdays and Fridays consult placed to nephrology for dialysis orders 3. Seizure disorder ?Patient is on Keppra did continue with home meds 4. Hypertension - Blood pressure controlled, home medications continued with dose adjustment as needed 5. Recurrent falls ?With previous history of subdural hemorrhage, intracerebral hemorrhage and intraventricular hemorrhage and subarachnoid hemorrhage following a fall 6. Coronary artery disease ?With history of CABG 7. Diabetes mellitus type II -Complications including end-stage renal disease. Currently managed with diet 8. BPH ?Patient on tamsulosin 9. Dyslipidemia -Patient is on statin therapy, continued at home dose 10. DVT prophylaxis ?On SC heparin Inpatient E&M: [id number] Subs Hosp L2
[2020-05-31] MEDS: Aspirin 81 MG TAB.CHEW PO (08:59)
--- NOTE | 2020-05-31 09:58 | PN.RENAL_ITS ---
Patient Problems: Active and Suspected Problems (Last Reviewed 05/26/20 @ 18:[address] Kathia Barney MD) Aspiration into airway (Acute) Frequent falls (Acute) Generalized weakness (Acute) Debility (Acute) Frequent falls (Acute) Subjective: No complaints today. No N/V/D/SOB - Physical Exam Vitals/I&O's: Vital Signs Temp Pulse Resp BP Pulse Ox 98.7 F 81 16 139/52 H 92 05/31/20 08:56 05/31/20 08:56 05/31/20 08:56 05/31/20 08:56 05/31/20 08:56 Oxygen Flow Rate (L/min) 2 Oxygen Delivery Method Room Air Weight: 67.993 kg Body Mass Index (BMI) 23.0 Finger Stick Blood Glucose 480 Intake and Output for Last 24 Hours 05/29/20 05/30/20 05/31/20 23:59 23:59 23:59 Intake Total 350 / 350 400 / 400 Output Total 1100 / 1100 0 / 0 100 / 100 Balance -1100 / -1000 350 / 350 300 / 300 General: Alert, Oriented x3 HEENT: Atraumatic Oral: Moist Mucosa Neck: Supple, No JVD Lungs: Clear to auscultation, Normal air movement, No rhonchi, No wheeze Cardiovascular: Regular rate, Regular Rhythm, Normal S1, Normal S2 Abdomen: Bowel Sounds Present, Soft, Non Tender, Non-Distended Extremities: No clubbing, No cyanosis, No edema Skin: No rashes Musculoskeletal: No Tenderness to Palpation of Joints or Extremities Lymphatic: No Cervical, Supraclavicular, or Inguinal Adenopathy Neurological: Cranial nerves II-XII grossly intact, Neuro grossly intact Psych/Mental Status: Normal Affect Comment: HD access Right IJ TC Laboratory Results 05/30/20 08:36: POC Glucose 109 05/30/20 10:56: POC Glucose 201 H 05/30/20 16:45: POC Glucose 131 H 05/30/20 21:53: POC Glucose 122 H 05/31/20 05:32: WBC 8.4, RBC 3.31 L, Hgb 9.6 L, Hct 29.6 L, MCV 89.4, MCH 29.0, MCHC 32.4, RDW Std Deviation 43.5, RDW Coeff of Arturo 13.1, Plt Count 240, MPV 9.5 05/31/20 05:32: Sodium 136, Potassium 4.1, Chloride 98, Carbon Dioxide 26.0, Anion Gap 12, BUN 56 H, Creatinine 6.67 H, Estim Creat Clear Calc 9.83, Est GFR (MDRD) Af Amer 11 L, Est GFR (MDRD) Non-Af 9 L, BUN/Creatinine Ratio 8.4 L, Gl ucose 111 H, Calcium 8.5 05/31/20 06:28: POC Glucose 103 Current Medications Acetaminophen (Acetaminophen 325 Mg Tablet) 650 mg PO Q6H PRN PRN PRN Reason: Pain Score 1-10/Temp > 100.7 F Last Admin: 05/30/20 02:51 Dose: 650 mg Documented by: Amlodipine Besylate (Amlodipine 5 Mg Tablet) 5 mg PO DAILY [facility] Last Admin: 05/30/20 08:52 Dose: 5 mg Documented by: Aspirin (Aspirin 81 Mg Tab.Chew) 81 mg PO DAILY@0800 [facility] Last Admin: 05/31/20 08:59 Dose: 81 mg Documented by: Atorvastatin Calcium (Atorvastatin Calcium 80 Mg Tablet) 80 mg PO DAILY@2200 [facility] Last Admin: 05/30/20 21:57 Dose: 80 mg Documented by: Ferrous Sulfate (Ferrous Sulfate 325 Mg Tablet) 325 mg PO DAILY@1200 [facility] Last Admin: 05/30/20 10:58 Dose: 325 mg Documented by: Finasteride (Finasteride 5 Mg Tablet) 5 mg PO DAILY [facility] Last Admin: 05/30/20 08:53 Dose: 5 mg Documented by: Guaifenesin/Codeine Phosphate (Guaifenesin/Codeine 5 Ml Udc) 5 ml PO Q6H PRN PRN PRN Reason: COUGH/CONGESTION Last Admin: 05/30/20 22:16 Dose: 5 ml Documented by: Heparin Sodium (Porcine) (Heparin Injection (Vial) 5,000 Unit/Ml Vial) 5,000 unit SC Q8 [facility] Last Admin: 05/31/20 06:30 Dose: 5,000 unit Documented by: Hydralazine HCl (Hydralazine 50 Mg Tablet) 50 mg PO TID [facility] Last Admin: 05/31/20 06:30 Dose: 50 mg Documented by: Sodium Chloride () 250 mls @ 15 mls/hr IV .[id number] PRN PRN Reason: Saline Flush Sodium Chloride () 250 mls @ 15 mls/hr IV .[id number] PRN PRN Reason: Additional IVPB Infusion Insulin Glargine (Insulin Glargine 100 Units/Ml Pen) 10 units SC 0700 [facility] Last Admin: 05/31/20 06:31 Dose: 10 units Documented by: Insulin Human Lispro (Insulin Lispro 100 Unit/Ml Insuln.Pen) 0 unit SC ACHS [facility]; Protocol Last Admin: 05/31/20 06:29 Dose: Not Given Documented by: Levetiracetam (Levetiracetam 500 Mg Tablet) 500 mg PO BID [facility] Last Admin: 05/30/20 21:57 Dose: 500 mg Documented by: Ondansetron HCl (Ondansetron 4 Mg/2 Ml Vial) 4 mg IV Q8H PRN PRN PRN Reason: NAUSEA/VOMITING Pantoprazole Sodium (Pantoprazole Sodium 40 Mg Tablet) 40 mg PO DAILY [facility] Last Admin: 05/30/20 08:52 Dose: 40 mg Documented by: Senna/Docusate Sodium (Senna/Docusate Sodium 1 Tablet) 2 tablet PO BID PRN PRN PRN Reason: Constipation Sodium Chloride (0.9% Saline Lock 10 Ml Syringe) 10 - 40 ml IV UD PRN PRN Reason: SALINE FLUSH Last Admin: 05/30/20 02:51 Dose: 10 ml Documented by: Tamsulosin HCl (Tamsulosin Hcl 0.4 Mg Capsule) 0.4 mg PO BID [facility] Last Admin: 05/30/20 21:57 Dose: 0.4 mg Documented by: Torsemide (Torsemide 100 Mg Tablet) 100 mg PO DAILY [facility] Last Admin: 05/30/20 08:53 Dose: 100 mg Documented by: Zolpidem Tartrate (Zolpidem Tartrate 5 Mg Tablet) 5 mg PO QHS PRN PRN PRN Reason: INSOMNIA Last Admin: 05/30/20 22:16 Dose: 5 mg Documented by: Medical Necessity - Tobacco Use Smoking Status: Former smoker Tobacco Use: Cigarettes Assessment/Plan All Active Problems (Last Reviewed 05/26/20 @ 18:[address] Kathia Barney MD) Aspiration into airway (Acute) Frequent falls (Acute) Generalized weakness (Acute) Debility (Acute) Frequent falls (Acute) 1- ESRD on HD MWF HD schedule HD session is arranged for today HD access R IJ TC 2-Anemia: Hgb is close to target 3- HTN: BP is well controlled Waiting for placement Will continue to follow
[2020-05-31] MEDS: Tamsulosin HCl 0.4 MG Capsule PO ×2 (10:55→21:02)
[2020-05-31] MEDS: levETIRAcetam 500 MG Tablet PO ×2 (10:55→21:02)
[2020-05-31] MEDS: Torsemide 100 MG Tablet PO (10:55)
[2020-05-31] MEDS: amLODIPine 5 MG Tablet PO (10:55)
[2020-05-31] MEDS: Pantoprazole Sodium 40 MG Tablet PO (10:55)
[2020-05-31] MEDS: Ferrous Sulfate 325 MG Tablet PO (10:56)
[2020-05-31] MEDS: Finasteride 5 MG Tablet PO (10:56)
[2020-05-31] MEDS: Insulin Lispro 100 UNIT/ML INSULN.PEN SC ×2 (10:59→21:03)
[2020-05-31 12:30] LABS: Bedside Glucose 235 mg/dL (70-110)
--- NOTE | 2020-05-31 16:25 | CASEMGMT ---
Social Work Note SW attempted to call [employer] to check status of appeal, no answer. HEIDI will attempt again tomorrow. Alysia De Luna MULTICRAFT OPERATOR, [employer]
[2020-05-31] MEDS: Heparin 10,000 UNITS/10 ML Vial IV (16:50)
[2020-05-31 17:20] LABS: Bedside Glucose 133 mg/dL (70-110)
--- NOTE | 2020-05-31 20:00 | DIALYSIS ---
Hemodialysis today just shy of full tx d/t sudden drop in bp where pt was symptomatic. Tx was ended and all blood returned. See flowsheet for details. -953ml off today. Pt denies pain or needs. resting with call light in reach. Report to Dorcas TRUJILLO
[2020-05-31] MEDS: guaiFENesin/Codeine 5 ML UDC PO (21:02)
[2020-05-31] MEDS: Atorvastatin Calcium 80 MG Tablet PO (21:02)
[2020-05-31 21:15] LABS: Bedside Glucose 162 mg/dL (70-110)
[2020-06-01] VITALS (9 sets, daily range): BP systolic 109–144; BP diastolic 55–77; PULSE 73–98; RESP 18–20; TEMP 36.8–37.1; O2SAT 92–98
[2020-06-01] MEDS: guaiFENesin/Codeine 5 ML UDC PO ×3 (03:36→22:03)
[2020-06-01 06:05] LABS: Hematocrit 29.3 % (40-54); Hemoglobin 9.5 g/dL (13.0-16.5); Mean Corp Hgb Conc 32.4 g/dL (32-36); Mean Corpuscular Hgb 29.1 pg (27.0-32.0); Mean Corpuscular Volume 89.6 fL (80-94); Mean Platelet Vol. 9.8 fl (6.2-12.0); Platelet Count 260 K/mm3 (150-450); RBC Distribution Width CV 13.1 % (11.6-14.6); RBC Distribution Width SD 43.4 fl (35.1-43.9); Red Blood Count 3.27 M/mm3 (4.6-6.2); White Blood Count 11.5 K/mm3 (4.4-11.0)
[2020-06-01] MEDS: hydrALAZINE 50 MG Tablet PO ×3 (06:24→22:00)
[2020-06-01 06:28] LABS: Anion Gap 9 (5-15); BUN 34 mg/dL (7-18); Calcium,Total 8.3 mg/dL (8.5-10.1); Chloride 98 mmol/L (98-107); Creatinine, Serum 4.84 mg/dL (0.70-1.30); EST Glomerular Filtration Rate 13 mL/min (>60); Est Glom Filt Rate - Afr Amer 15 mL/min (>60); Estimated Creatinine Clearance 13.46 ml/min; Glucose 118 mg/dL (74-106); Sodium Level 135 mmol/L (136-145)
[2020-06-01] MEDS: Heparin Injection (Vial) 5,000 UNIT/ML VIAL 5000 UNIT SC ×3 (06:28→22:01)
[2020-06-01 07:45] LABS: Bedside Glucose 113 mg/dL (70-110)
--- NOTE | 2020-06-01 07:50 | PN_ITS ---
Patient Problems: Active and Suspected Problems (Last Reviewed 05/26/20 @ 18:[address] Kathia Barney MD) Aspiration into airway (Acute) Frequent falls (Acute) Generalized weakness (Acute) Debility (Acute) Frequent falls (Acute) Reason for Visit: Adult failure to thrive Subjective: Patient seen complains of feeling weak following his dialysis the day prior. Still awaiting for insurance precertification prior to disposition to a snf facility. A second appeal was sent for peer to peer awaiting call from patient's insurance company Objective: GENERAL: cooperative HEENT: Atraumatic; EYES; Anicteric, Normal Conjunctiva NECK; supple, normal thyroid, RESPIRATORY: Diminished to auscultation CARDIOVASCULAR: Regular S1 S2, GI: soft, normoactive bowel sounds, : No Renal angle tenderness; EXTREMITIES: No edema, no clubbing, MUSCULOSKELETAL: no muscle waisting NEURO: Awake; no lateralizing signs. SKIN: No Rash PSYCH; Flat affect Vitals/I&O's: Vital Signs Temp Pulse Resp BP Pulse Ox 98.8 F 82 20 H 109/60 94 06/01/20 06:35 06/01/20 06:35 06/01/20 06:35 06/01/20 06:35 06/01/20 06:35 Oxygen Flow Rate (L/min) 2 Oxygen Delivery Method Room Air Weight: 67.993 kg Body Mass Index (BMI) 23.0 Finger Stick Blood Glucose 480 Intake and Output for Last 24 Hours 05/30/20 05/31/20 06/01/20 23:59 23:59 23:59 Intake Total 350 / 350 750 / 750 270 / 270 Output Total 0 / 0 1153 / 1153 Balance 350 / 350 -403 / -403 270 / 270 Laboratory Results 05/31/20 10:58: POC Glucose 235 H 05/31/20 17:04: POC Glucose 133 H 05/31/20 20:56: POC Glucose 162 H 06/01/20 05:35: WBC 11.5 H, RBC 3.27 L, Hgb 9.5 L, Hct 29.3 L, MCV 89.6, MCH 29.1, MCHC 32.4, RDW Std Deviation 43.4, RDW Coeff of Arturo 13.1, Plt Count 260, MPV 9.8 06/01/20 05:35: Sodium 135 L, Potassium 4.0, Chloride 98, Carbon Dioxide 28.0, Anion Gap 9, BUN 34 H, Creatinine 4.84 H, Estim Creat Clear Calc 13.46, Est GFR (MDRD) Af Amer 15 L, Est GFR (MDRD) Non-Af 13 L, BUN/Creatinine Ratio 7.0 L, Glucose 118 H, Calcium 8.3 L 06/01/20 07:33: POC Glucose 113 H Current Medications Acetaminophen (Acetaminophen 325 Mg Tablet) 650 mg PO Q6H PRN PRN PRN Reason: Pain Score 1-10/Temp > 100.7 F Last Admin: 05/30/20 02:51 Dose: 650 mg Documented by: Amlodipine Besylate (Amlodipine 5 Mg Tablet) 5 mg PO DAILY [facility] Last Admin: 05/31/20 10:55 Dose: 5 mg Documented by: Aspirin (Aspirin 81 Mg Tab.Chew) 81 mg PO DAILY@0800 [facility] Last Admin: 05/31/20 08:59 Dose: 81 mg Documented by: Atorvastatin Calcium (Atorvastatin Calcium 80 Mg Tablet) 80 mg PO DAILY@2200 [facility] Last Admin: 05/31/20 21:02 Dose: 80 mg Documented by: Ferrous Sulfate (Ferrous Sulfate 325 Mg Tablet) 325 mg PO DAILY@1200 [facility] Last Admin: 05/31/20 10:56 Dose: 325 mg Documented by: Finasteride (Finasteride 5 Mg Tablet) 5 mg PO DAILY [facility] Last Admin: 05/31/20 10:56 Dose: 5 mg Documented by: Guaifenesin/Codeine Phosphate (Guaifenesin/Codeine 5 Ml Udc) 5 ml PO Q6H PRN PRN PRN Reason: COUGH/CONGESTION Last Admin: 06/01/20 03:36 Dose: 5 ml Documented by: Heparin Sodium (Porcine) (Heparin Injection (Vial) 5,000 Unit/Ml Vial) 5,000 unit SC Q8 [facility] Last Admin: 06/01/20 06:28 Dose: 5,000 unit Documented by: Hydralazine HCl (Hydralazine 50 Mg Tablet) 50 mg PO TID [facility] Last Admin: 06/01/20 06:24 Dose: 50 mg Documented by: Sodium Chloride () 250 mls @ 15 mls/hr IV .[id number] PRN PRN Reason: Saline Flush Sodium Chloride () 250 mls @ 15 mls/hr IV .[id number] PRN PRN Reason: Additional IVPB Infusion Sodium Chloride () 200 mls @ 0 mls/hr IV .Q0M PRN PRN Reason: HYPOTENSION/PATENCY Insulin Glargine (Insulin Glargine 100 Units/Ml Pen) 10 units SC 0700 [facility] Last Admin: 05/31/20 06:31 Dose: 10 units Documented by: Insulin Human Lispro (Insulin Lispro 100 Unit/Ml Insuln.Pen) 0 unit SC ACHS [facility]; Protocol Last Admin: 05/31/20 21:03 Dose: 1 units Documented by: Levetiracetam (Levetiracetam 500 Mg Tablet) 500 mg PO BID [facility] Last Admin: 05/31/20 21:02 Dose: 500 mg Documented by: Ondansetron HCl (Ondansetron 4 Mg/2 Ml Vial) 4 mg IV Q8H PRN PRN PRN Reason: NAUSEA/VOMITING Pantoprazole Sodium (Pantoprazole Sodium 40 Mg Tablet) 40 mg PO DAILY [facility] Last Admin: 05/31/20 10:55 Dose: 40 mg Documented by: Senna/Docusate Sodium (Senna/Docusate Sodium 1 Tablet) 2 tablet PO BID PRN PRN PRN Reason: Constipation Sodium Chloride (0.9% Saline Lock 10 Ml Syringe) 10 - 40 ml IV UD PRN PRN Reason: SALINE FLUSH Last Admin: 05/30/20 02:51 Dose: 10 ml Documented by: Tamsulosin HCl (Tamsulosin Hcl 0.4 Mg Capsule) 0.4 mg PO BID [facility] Last Admin: 05/31/20 21:02 Dose: 0.4 mg Documented by: Torsemide (Torsemide 100 Mg Tablet) 100 mg PO DAILY [facility] Last Admin: 05/31/20 10:55 Dose: 100 mg Documented by: Zolpidem Tartrate (Zolpidem Tartrate 5 Mg Tablet) 5 mg PO QHS PRN PRN PRN Reason: INSOMNIA Last Admin: 05/30/20 22:16 Dose: 5 mg Documented by: STROKE Vital Signs/Narrative: Vital Signs Temp Pulse Resp BP Pulse Ox 06/01/20 06:35 98.8 F 82 20 H 109/60 94 06/01/20 06:24 82 109/60 Medical Necessity - Tobacco Use Smoking Status: Former smoker Tobacco Use: Cigarettes Assessment/Plan All Active Problems (Last Reviewed 05/26/20 @ 18:[address] Kathia Barney MD) Aspiration into airway (Acute) Frequent falls (Acute) Generalized weakness (Acute) Debility (Acute) Frequent falls (Acute) Patient is a 69-year-old gentleman with multiple comorbidities including end- stage renal disease presented with progressive generalized weakness 1. Physical deconditioning due to multiple medical comorbidities including end- stage renal disease, CVA diabetes mellitus type 2 -Admitted to regular nursing floor - Requested for PT OT eval and social service coordinator to assist with discharge planning -05/30/2020; patient was denied by his insurance company regarding transfer to snf facility did appeal patient was denied again. Insurance company requested for another peer to peer. Patient kept informed of the above -05/31/2020: Awaiting second peer to peer discussion with patient's insurance company. -06/01/2020; Patient seen complains of feeling weak following his dialysis the day prior. Still awaiting for insurance precertification prior to disposition to a snf facility. A second appeal was sent for peer to peer caryl iting call from patient's insurance compan 2. End-stage renal disease ?Patient on hemodialysis on Wednesdays and Fridays consult placed to nephrology for dialysis orders 3. Seizure disorder ?Patient is on Keppra did continue with home meds 4. Hypertension - Blood pressure controlled, home medications continued with dose adjustment as needed 5. Recurrent falls ?With previous history of subdural hemorrhage, intracerebral hemorrhage and intraventricular hemorrhage and subarachnoid hemorrhage following a fall 6. Coronary artery disease ?With history of CABG 7. Diabetes mellitus type II -Complications including end-stage renal disease. Currently managed with diet 8. BPH ?Patient on tamsulosin 9. Dyslipidemia -Patient is on statin therapy, continued at home dose 10. DVT prophylaxis ?On SC heparin Inpatient E&M: 70740 Subs Hosp L2
[2020-06-01] MEDS: Tamsulosin HCl 0.4 MG Capsule PO ×2 (08:43→22:01)
[2020-06-01] MEDS: Torsemide 100 MG Tablet PO (08:43)
[2020-06-01] MEDS: amLODIPine 5 MG Tablet PO (08:43)
[2020-06-01] MEDS: Aspirin 81 MG TAB.CHEW PO (08:43)
[2020-06-01] MEDS: levETIRAcetam 500 MG Tablet PO ×2 (08:43→22:01)
[2020-06-01] MEDS: Finasteride 5 MG Tablet PO (08:44)
[2020-06-01] MEDS: Pantoprazole Sodium 40 MG Tablet PO (08:44)
--- NOTE | 2020-06-01 09:52 | PN.RENAL_ITS ---
Patient Problems: Active and Suspected Problems (Last Reviewed 05/26/20 @ 18:[address] Kathia Barney MD) Aspiration into airway (Acute) Frequent falls (Acute) Generalized weakness (Acute) Debility (Acute) Frequent falls (Acute) Subjective: No nausea No vomiting No SOB. No CP - Physical Exam Vitals/I&O's: Vital Signs Temp Pulse Resp BP Pulse Ox 98.8 F 82 20 H 109/60 94 06/01/20 06:35 06/01/20 06:35 06/01/20 06:35 06/01/20 06:35 06/01/20 06:35 Oxygen Flow Rate (L/min) 2 Oxygen Delivery Method Room Air Weight: 67.993 kg Body Mass Index (BMI) 23.0 Finger Stick Blood Glucose 480 Intake and Output for Last 24 Hours 05/30/20 05/31/20 06/01/20 23:59 23:59 23:59 Intake Total 350 / 350 750 / 750 270 / 270 Output Total 0 / 0 1153 / 1153 Balance 350 / 350 -403 / -403 270 / 270 General: Alert, Oriented x3 HEENT: Atraumatic Oral: Moist Mucosa Neck: Supple, No JVD Lungs: Clear to auscultation, Normal air movement, No rhonchi, No wheeze Cardiovascular: Regular rate, Regular Rhythm, Normal S1, Normal S2 Abdomen: Bowel Sounds Present, Soft, Non Tender, Non-Distended Extremities: No clubbing, No cyanosis, No edema Skin: No rashes Musculoskeletal: No Tenderness to Palpation of Joints or Extremities Lymphatic: No Cervical, Supraclavicular, or Inguinal Adenopathy Neurological: Cranial nerves II-XII grossly intact, Neuro grossly intact Psych/Mental Status: Normal Affect Laboratory Results 05/31/20 10:58: POC Glucose 235 H 05/31/20 17:04: POC Glucose 133 H 05/31/20 20:56: POC Glucose 162 H 06/01/20 05:35: WBC 11.5 H, RBC 3.27 L, Hgb 9.5 L, Hct 29.3 L, MCV 89.6, MCH 29.1, MCHC 32.4, RDW Std Deviation 43.4, RDW Coeff of Arturo 13.1, Plt Count 260, MPV 9.8 06/01/20 05:35: Sodium 135 L, Potassium 4.0, Chloride 98, Carbon Dioxide 28.0, Anion Gap 9, BUN 34 H, Creatinine 4.84 H, Estim Creat Clear Calc 13.46, Est GFR (MDRD) Af Amer 15 L, Est GFR (MDRD) Non-Af 13 L, BUN/Creatinine Ratio 7.0 L, Glucose 118 H, Calcium 8.3 L 06/01/20 07:33: POC Glucose 113 H Current Medications Acetaminophen (Acetaminophen 325 Mg Tablet) 650 mg PO Q6H PRN PRN PRN Reason: Pain Score 1-10/Temp > 100.7 F Last Admin: 05/30/20 02:51 Dose: 650 mg Documented by: Amlodipine Besylate (Amlodipine 5 Mg Tablet) 5 mg PO DAILY [facility] Last Admin: 06/01/20 08:43 Dose: 5 mg Documented by: Aspirin (Aspirin 81 Mg Tab.Chew) 81 mg PO DAILY@0800 [facility] Last Admin: 06/01/20 08:43 Dose: 81 mg Documented by: Atorvastatin Calcium (Atorvastatin Calcium 80 Mg Tablet) 80 mg PO DAILY@2200 [facility] Last Admin: 05/31/20 21:02 Dose: 80 mg Documented by: Ferrous Sulfate (Ferrous Sulfate 325 Mg Tablet) 325 mg PO DAILY@1200 [facility] Last Admin: 05/31/20 10:56 Dose: 325 mg Documented by: Finasteride (Finasteride 5 Mg Tablet) 5 mg PO DAILY [facility] Last Admin: 06/01/20 08:44 Dose: 5 mg Documented by: Guaifenesin/Codeine Phosphate (Guaifenesin/Codeine 5 Ml Udc) 5 ml PO Q6H PRN PRN PRN Reason: COUGH/CONGESTION Last Admin: 06/01/20 03:36 Dose: 5 ml Documented by: Heparin Sodium (Porcine) (Heparin Injection (Vial) 5,000 Unit/Ml Vial) 5,000 unit SC Q8 [facility] Last Admin: 06/01/20 06:28 Dose: 5,000 unit Documented by: Hydralazine HCl (Hydralazine 50 Mg Tablet) 50 mg PO TID [facility] Last Admin: 06/01/20 06:24 Dose: 50 mg Documented by: Sodium Chloride () 250 mls @ 15 mls/hr IV .[id number] PRN PRN Reason: Saline Flush Sodium Chloride () 250 mls @ 15 mls/hr IV .[id number] PRN PRN Reason: Additional IVPB Infusion Sodium Chloride () 200 mls @ 0 mls/hr IV .Q0M PRN PRN Reason: HYPOTENSION/PATENCY Insulin Glargine (Insulin Glargine 100 Units/Ml Pen) 10 units SC 0700 [facility] Last Admin: 06/01/20 08:55 Dose: Not Given Documented by: Insulin Human Lispro (Insulin Lispro 100 Unit/Ml Insuln.Pen) 0 unit SC ACHS [facility]; Protocol Last Admin: 06/01/20 08:41 Dose: Not Given Documented by: Levetiracetam (Levetiracetam 500 Mg Tablet) 500 mg PO BID [facility] Last Admin: 06/01/20 08:43 Dose: 500 mg Documented by: Ondansetron HCl (Ondansetron 4 Mg/2 Ml Vial) 4 mg IV Q8H PRN PRN PRN Reason: NAUSEA/VOMITING Pantoprazole Sodium (Pantoprazole Sodium 40 Mg Tablet) 40 mg PO DAILY [facility] Last Admin: 06/01/20 08:44 Dose: 40 mg Documented by: Senna/Docusate Sodium (Senna/Docusate Sodium 1 Tablet) 2 tablet PO BID PRN PRN PRN Reason: Constipation Sodium Chloride (0.9% Saline Lock 10 Ml Syringe) 10 - 40 ml IV UD PRN PRN Reason: SALINE FLUSH Last Admin: 05/30/20 02:51 Dose: 10 ml Documented by: Tamsulosin HCl (Tamsulosin Hcl 0.4 Mg Capsule) 0.4 mg PO BID [facility] Last Admin: 06/01/20 08:43 Dose: 0.4 mg Documented by: Torsemide (Torsemide 100 Mg Tablet) 100 mg PO DAILY [facility] Last Admin: 06/01/20 08:43 Dose: 100 mg Documented by: Zolpidem Tartrate (Zolpidem Tartrate 5 Mg Tablet) 5 mg PO QHS PRN PRN PRN Reason: INSOMNIA Last Admin: 05/30/20 22:16 Dose: 5 mg Documented by: Medical Necessity - Tobacco Use Smoking Status: Former smoker Tobacco Use: Cigarettes Assessment/Plan All Active Problems (Last Reviewed 05/26/20 @ 18:[address] Kathia Barney MD) Aspiration into airway (Acute) Frequent falls (Acute) Generalized weakness (Acute) Debility (Acute) Frequent falls (Acute) 1- ESRD on HD MWF HD schedule next HD session tomorrow HD access R IJ TC 2-Anemia: Hgb is close to target 3- HTN: BP is well controlled Waiting for placement Will continue to follow
--- NOTE | 2020-06-01 09:53 | CASEMGMT ---
Addendum entered by Alysia De Luna 06/01/20 16:47: SW placed a call to [employer] to inquire about status of pt's appeal. SW transferred to multiple people and was transferred to [place] with [facility]. [facility] pt's appeal is still pending, no determination has been made. [facility] will fax determination once it is decided. SW placed a call to Ayana at [facility] and left message updating her pt's appeal is still pending. SW updated physician that transfer to extended care facility document could be completed tomorrow morning so this worker could go ahead and submit LOC for pt to try and get pt to [facility] under LOC while appeal is still pending. SW will await appeal from [facility]. Pt will also submit LOC under pt's pending medicaid. Original Note: Social Work Note SW placed a call to Eve Taylor at [facility] and asked about pt's pending medicaid number. Eve states pt's pending medicaid number is [id number]. Alysia De Luna [employer]PERVISOR [employer], [employer]
[2020-06-01 12:16] LABS: Bedside Glucose 193 mg/dL (70-110)
[2020-06-01] MEDS: Insulin Lispro 100 UNIT/ML INSULN.PEN SC ×2 (12:38→16:56)
[2020-06-01] MEDS: Ferrous Sulfate 325 MG Tablet PO (12:39)
[2020-06-01 16:30] LABS: Bedside Glucose 180 mg/dL (70-110)
[2020-06-01] MEDS: Atorvastatin Calcium 80 MG Tablet PO (22:00)
[2020-06-02] VITALS (10 sets, daily range): BP systolic 113–130; BP diastolic 57–84; PULSE 72–96; RESP 14–18; TEMP 36.7–37.3; O2SAT 94–97
[2020-06-02] LABS: Bedside Glucose 144 mg/dL (70-110)
[2020-06-02] MEDS: hydrALAZINE 50 MG Tablet PO ×3 (06:44→21:01)
[2020-06-02] MEDS: Heparin Injection (Vial) 5,000 UNIT/ML VIAL 5000 UNIT SC ×3 (06:45→21:01)
[2020-06-02] MEDS: guaiFENesin/Codeine 5 ML UDC PO (06:45)
[2020-06-02 06:55] LABS: Bedside Glucose 117 mg/dL (70-110)
--- NOTE | 2020-06-02 08:59 | PCM.PN.REN ---
Patient Problems: Active and Suspected Problems (Last Reviewed 05/26/20 @ 18:[address] Kathia Barney MD) Aspiration into airway (Acute) Frequent falls (Acute) Generalized weakness (Acute) Debility (Acute) Frequent falls (Acute) Subjective: No complaint , No nausea No vomiting No SOB Seen while on HD - Physical Exam Vitals/I&O's: Vital Signs Temp Pulse Resp BP Pulse Ox 98.5 F 89 18 117/84 H 95 06/02/20 02:55 06/02/20 06:44 06/02/20 02:55 06/02/20 06:44 06/02/20 02:55 Oxygen Flow Rate (L/min) 2 Oxygen Delivery Method Room Air Weight: 66.9 kg Body Mass Index (BMI) 23.0 Finger Stick Blood Glucose 480 Intake and Output for Last 24 Hours 05/31/20 06/01/20 06/02/20 23:59 23:59 23:59 Intake Total 750 / 750 270 / 270 200 / 200 Output Total 1153 / 1153 Balance -403 / -403 270 / 270 200 / 200 General: Alert, Oriented x3 HEENT: Atraumatic Oral: Moist Mucosa Neck: Supple, No JVD Lungs: Clear to auscultation, Normal air movement, No rhonchi Cardiovascular: Regular rate, Regular Rhythm, Normal S1, Normal S2 Abdomen: Bowel Sounds Present, Soft, Non Tender, Non-Distended Extremities: No clubbing, No cyanosis, No edema Skin: No rashes Lymphatic: No Cervical, Supraclavicular, or Inguinal Adenopathy Neurological: Cranial nerves II-XII grossly intact, Neuro grossly intact Psych/Mental Status: Normal Affect Laboratory Results 06/01/20 11:30: POC Glucose 193 H 06/01/20 16:17: POC Glucose 180 H 06/01/20 21:58: POC Glucose 144 H 06/02/20 06:49: POC Glucose 117 H Current Medications Acetaminophen (Acetaminophen 325 Mg Tablet) 650 mg PO Q6H PRN PRN PRN Reason: Pain Score 1-10/Temp > 100.7 F Last Admin: 05/30/20 02:51 Dose: 650 mg Documented by: Amlodipine Besylate (Amlodipine 5 Mg Tablet) 5 mg PO DAILY [facility] Last Admin: 06/01/20 08:43 Dose: 5 mg Documented by: Aspirin (Aspirin 81 Mg Tab.Chew) 81 mg PO DAILY@0800 [facility] Last Admin: 06/01/20 08:43 Dose: 81 mg Documented by: Atorvastatin Calcium (Atorvastatin Calcium 80 Mg Tablet) 80 mg PO DAILY@2200 [facility] Last Admin: 06/01/20 22:00 Dose: 80 mg Documented by: Ferrous Sulfate (Ferrous Sulfate 325 Mg Tablet) 325 mg PO DAILY@1200 [facility] Last Admin: 06/01/20 12:39 Dose: 325 mg Documented by: Finasteride (Finasteride 5 Mg Tablet) 5 mg PO DAILY [facility] Last Admin: 06/01/20 08:44 Dose: 5 mg Documented by: Guaifenesin/Codeine Phosphate (Guaifenesin/Codeine 5 Ml Udc) 5 ml PO Q6H PRN PRN PRN Reason: COUGH/CONGESTION Last Admin: 06/02/20 06:45 Dose: 5 ml Documented by: Heparin Sodium (Porcine) (Heparin Injection (Vial) 5,000 Unit/Ml Vial) 5,000 unit SC Q8 [facility] Last Admin: 06/02/20 06:45 Dose: 5,000 unit Documented by: Hydralazine HCl (Hydralazine 50 Mg Tablet) 50 mg PO TID [facility] Last Admin: 06/02/20 06:44 Dose: 50 mg Documented by: Sodium Chloride () 250 mls @ 15 mls/hr IV .[id number] PRN PRN Reason: Saline Flush Sodium Chloride () 250 mls @ 15 mls/hr IV .[id number] PRN PRN Reason: Additional IVPB Infusion Sodium Chloride () 200 mls @ 0 mls/hr IV .Q0M PRN PRN Reason: HYPOTENSION/PATENCY Insulin Glargine (Insulin Glargine 100 Units/Ml Pen) 5 units SC 0700 [facility] Insulin Human Lispro (Insulin Lispro 100 Unit/Ml Insuln.Pen) 0 unit SC ACHS [facility]; Protocol Last Admin: 06/02/20 07:45 Dose: Not Given Documented by: Levetiracetam (Levetiracetam 500 Mg Tablet) 500 mg PO BID [facility] Last Admin: 06/01/20 22:01 Dose: 500 mg Documented by: Ondansetron HCl (Ondansetron 4 Mg/2 Ml Vial) 4 mg IV Q8H PRN PRN PRN Reason: NAUSEA/VOMITING Pantoprazole Sodium (Pantoprazole Sodium 40 Mg Tablet) 40 mg PO DAILY [facility] Last Admin: 06/01/20 08:44 Dose: 40 mg Documented by: Senna/Docusate Sodium (Senna/Docusate Sodium 1 Tablet) 2 tablet PO BID PRN PRN PRN Reason: Constipation Sodium Chloride (0.9% Saline Lock 10 Ml Syringe) 10 - 40 ml IV UD PRN PRN Reason: SALINE FLUSH Last Admin: 05/30/20 02:51 Dose: 10 ml Documented by: Tamsulosin HCl (Tamsulosin Hcl 0.4 Mg Capsule) 0.4 mg PO BID [facility] Last Admin: 06/01/20 22:01 Dose: 0.4 mg Documented by: Torsemide (Torsemide 100 Mg Tablet) 100 mg PO DAILY [facility] Last Admin: 06/01/20 08:43 Dose: 100 mg Documented by: Zolpidem Tartrate (Zolpidem Tartrate 5 Mg Tablet) 5 mg PO QHS PRN PRN PRN Reason: INSOMNIA Last Admin: 05/30/20 22:16 Dose: 5 mg Documented by: Medical Necessity - Tobacco Use Smoking Status: Former smoker Tobacco Use: Cigarettes Assessment/Plan All Active Problems (Last Reviewed 05/26/20 @ 18:[address] Kathia Barney MD) Aspiration into airway (Acute) Frequent falls (Acute) Generalized weakness (Acute) Debility (Acute) Frequent falls (Acute) 1- ESRD on HD MWF HD schedule HD session today : BQ 400 DQ 600 UF 1-2 L HD access R IJ TC 2-Anemia: Hgb is close to target 3- HTN: BP is well controlled Waiting for placement Will continue to follow
--- NOTE | 2020-06-02 09:21 | CASEMGMT ---
Addendum entered by Alysia De Luna 06/02/20 11:26: SW hasn't received updated form [facility] regarding appeal. [facility] faxed LOC to [facility]. Original Note: Social Work Note SW received call from Nani Champion requesting updated clinicals. . [facility]I faxed updated clinicals to [facility]. Alysia De Luna SOIL SPECIALIST, WRAPPER OPENER
--- NOTE | 2020-06-02 11:13 | PCM.TXEXTCAR ---
- Diet 05/26/20 22:35 Diet: Consistent Carb - Calorie Controlled Food consistency:: Regular Liquid Consistency:: Regular/Thin How many daily calories?: 1800 calorie Diet: Renal - General Food consistency:: Regular Liquid Consistency:: Regular/Thin - Routine Orders/Code Status O2 Frequency: PRN Keep PO Greater than or Equal to (%): 92 Code Status: Full Code - Therapies Physical Therapy: Eval and Treat Occupational Therapy: Eval and Treat - Allergies/Procedures Done in Hospital Allergies/Adverse Reactions: Allergies No Known Allergies Allergy (Verified 05/26/20 22:43) - Type of Care/Length of Stay Estimated LOS: Convalescent Care Less Than 30 days Type of Care Needed: Skilled Rehab Potential: Good Prognosis: Good - Additional Orders/Day of Discharge Day of Discharge: 06/02/20 - Follow Up Care Primary Care Physician: Paul Martinez Chi, MD [Primary Care Provider] - Please follow up with your Primary Care Physician in: IN 2-3 WEEKS
--- NOTE | 2020-06-02 11:26 | PCM.DC.SUM ---
Discharge Date and Diagnosis - Problem List Patient Problems: Active and Suspected Problems (Last Reviewed 05/26/20 @ 18:[address] Kathia Barney MD) Frequent falls (Acute) Generalized weakness (Acute) Debility (Acute) Frequent falls (Acute) Date of Admission: 05/26/20 Date of Discharge: 06/02/20 - Primary Discharge Diagnosis Acute Problems: Active Problems (Last Reviewed 05/26/20 @ 18:[address] Kathia Barney MD) Frequent falls (Acute) Generalized weakness (Acute) Debility (Acute) Frequent falls (Acute) - Secondary Discharge Diagnosis Chronic Problems: Chronic Problems (Last Reviewed 05/26/20 @ 18:[address] Kathia Barney MD) End-stage renal disease on hemodialysis (Chronic) End stage renal disease on dialysis (Chronic) Depression (Chronic) BPH with obstruction/lower urinary tract symptoms (Chronic) Left ventricular hypertrophy (Chronic) Diverticulosis (Chronic) Tobacco dependence in remission (Chronic) smoked for only 3 hours hx of APLL (Chronic) Left leg- 05/16/19 left superficial femoral artery and left popliteal artery angioplasty by Dr. Kamara History of angioplasty of peripheral vessel (Chronic ~2017) 01/01/16 L Peroneal and L superficial femoral A. angioplasty by Dr. Kamara HTN (hypertension) (Chronic) History of stroke (Chronic) Left parietal in August of 2017 Peripheral vascular disease (Chronic) BL LE PVD - status post angioplasty on 3 occasions Status post coronary artery bypass graft (Chronic) 3 vessel CABG per pt in 2014? Diabetes mellitus, type 2 (Chronic) historically poorly controlled due to non-compliance GERD (gastroesophageal reflux disease) (Chronic) Hyperlipidemia (Chronic) CAD (coronary artery disease) (Chronic) Hospital Course and Treatment Imaging Results: Clinical Impression(s) from Imaging Studies Chest X-Ray 05/26/20 15:15 IMPRESSION: No acute pulmonary process Electronically Signed: Cristian Ennis MD at 16:35 EDT , Service support , Brain CT 05/26/20 22:34 IMPRESSION: No CT evidence of acute infarct or hemorrhage. If there is clinical concern for hyperacute ischemia that is not evident by CT, MRI should be considered if possible. Electronically Signed: Camacho Montgomery MD at 0:01 EDT Tel , Service support , Operations: None Summary of Care Provided: Patient is a 69-year-old gentleman with multiple comorbidities including end-stage renal disease presented with progressive generalized weakness 1. Physical deconditioning due to multiple medical comorbidities including end-stage renal disease, CVA diabetes mellitus type 2 -Admitted to regular nursing floor - Requested for PT OT eval and high school social studies tutor to assist with discharge planning -05/30/2020; patient was denied by his insurance company regarding transfer to [place] [facility] did appeal patient was denied again. Insurance company requested for another peer to peer. Patient kept informed of the above -05/31/2020: Awaiting second peer to peer discussion with patient's insurance company. -06/01/2020; Patient seen complains of feeling weak following his dialysis the day prior. Still awaiting for insurance precertification prior to disposition to a [place] [facility] facility. A second appeal was sent for peer to peer awaiting call from patient's insurance company [phone]; patient was transferred to [place] [facility] stable condition. 2. End-stage renal disease ?Patient on hemodialysis on Wednesdays and Fridays consult placed to nephrology for dialysis orders 3. Seizure disorder ?Patient is on Keppra did continue with home meds 4. Hypertension - Blood pressure controlled, home medications continued with dose adjustment as needed 5. Recurrent falls ?With previous history of subdural hemorrhage, intracerebral hemorrhage and intraventricular hemorrhage and subarachnoid hemorrhage following a fall 6. Coronary artery disease ?With history of CABG 7. Diabetes mellitus type II -Complications including end-stage renal disease. Currently managed with diet 8. BPH ?Patient on tamsulosin 9. Dyslipidemia -Patient is on statin therapy, continued at home dose 10. DVT prophylaxis ?On SC heparin Patient Problems: Active and Suspected Problems (Last Reviewed 05/26/20 @ 18:[address] Kathia Barney MD) Frequent falls (Acute) Generalized weakness (Acute) Debility (Acute) Frequent falls (Acute) Objective: GENERAL: cooperative HEENT: Atraumatic; EYES; Anicteric, Normal Conjunctiva NECK; supple, normal thyroid, RESPIRATORY: Diminished to auscultation CARDIOVASCULAR: Regular S1 S2, GI: soft, normoactive bowel sounds, : No Renal angle tenderness; EXTREMITIES: No edema, no clubbing, MUSCULOSKELETAL: no muscle waisting NEURO: Awake; no lateralizing signs. SKIN: No Rash PSYCH; Flat affect - Physical Exam Vitals/I&O's: Vital Signs Temp Pulse Resp BP Pulse Ox 98.5 F 72 18 117/84 H 95 06/02/20 02:55 06/02/20 09:00 06/02/20 02:55 06/02/20 06:44 06/02/20 02:55 Oxygen Flow Rate (L/min) 2 Oxygen Delivery Method Room Air Weight: 66.9 kg Body Mass Index (BMI) 23.0 Finger Stick Blood Glucose 480 Intake and Output for Last 24 Hours 05/31/20 06/01/20 06/02/20 23:59 23:59 23:59 Intake Total 750 / 750 270 / 270 200 / 200 Output Total 1153 / 1153 Balance -403 / -403 270 / 270 200 / 200 Laboratory Results 06/01/20 11:30: POC Glucose 193 H 06/01/20 16:17: POC Glucose 180 H 06/01/20 21:58: POC Glucose 144 H 06/02/20 06:49: POC Glucose 117 H Current Medications Acetaminophen (Acetaminophen 325 Mg Tablet) 650 mg PO Q6H PRN PRN PRN Reason: Pain Score 1-10/Temp > 100.7 F Last Admin: 05/30/20 02:51 Dose: 650 mg Documented by: Amlodipine Besylate (Amlodipine 5 Mg Tablet) 5 mg PO DAILY [facility] Last Admin: 06/01/20 08:43 Dose: 5 mg Documented by: Aspirin (Aspirin 81 Mg Tab.Chew) 81 mg PO DAILY@0800 [facility] Last Admin: 06/01/20 08:43 Dose: 81 mg Documented by: Atorvastatin Calcium (Atorvastatin Calcium 80 Mg Tablet) 80 mg PO DAILY@2200 [facility] Last Admin: 06/01/20 22:00 Dose: 80 mg Documented by: Ferrous Sulfate (Ferrous Sulfate 325 Mg Tablet) 325 mg PO DAILY@1200 [facility] Last Admin: 06/01/20 12:39 Dose: 325 mg Documented by: Finasteride (Finasteride 5 Mg Tablet) 5 mg PO DAILY [facility] Last Admin: 06/01/20 08:44 Dose: 5 mg Documented by: Guaifenesin/Codeine Phosphate (Guaifenesin/Codeine 5 Ml Udc) 5 ml PO Q6H PRN PRN PRN Reason: COUGH/CONGESTION Last Admin: 06/02/20 06:45 Dose: 5 ml Documented by: Heparin Sodium (Porcine) (Heparin Injection (Vial) 5,000 Unit/Ml Vial) 5,000 unit SC Q8 [facility] Last Admin: 06/02/20 06:45 Dose: 5,000 unit Documented by: Hydralazine HCl (Hydralazine 50 Mg Tablet) 50 mg PO TID [facility] Last Admin: 06/02/20 06:44 Dose: 50 mg Documented by: Sodium Chloride () 250 mls @ 15 mls/hr IV .[id number] PRN PRN Reason: Saline Flush Sodium Chloride () 250 mls @ 15 mls/hr IV .[id number] PRN PRN Reason: Additional IVPB Infusion Sodium Chloride () 200 mls @ 0 mls/hr IV .Q0M PRN PRN Reason: HYPOTENSION/PATENCY Insulin Glargine (Insulin Glargine 100 Units/Ml Pen) 5 units SC 0700 [facility] Insulin Human Lispro (Insulin Lispro 100 Unit/Ml Insuln.Pen) 0 unit SC ACHS [facility]; Protocol Last Admin: 06/02/20 07:45 Dose: Not Given Documented by: Levetiracetam (Levetiracetam 500 Mg Tablet) 500 mg PO BID [facility] Last Admin: 06/01/20 22:01 Dose: 500 mg Documented by: Ondansetron HCl (Ondansetron 4 Mg/2 Ml Vial) 4 mg IV Q8H PRN PRN PRN Reason: NAUSEA/VOMITING Pantoprazole Sodium (Pantoprazole Sodium 40 Mg Tablet) 40 mg PO DAILY [facility] Last Admin: 06/01/20 08:44 Dose: 40 mg Documented by: Senna/Docusate Sodium (Senna/Docusate Sodium 1 Tablet) 2 tablet PO BID PRN PRN PRN Reason: Constipation Sodium Chloride (0.9% Saline Lock 10 Ml Syringe) 10 - 40 ml IV UD PRN PRN Reason: SALINE FLUSH Last Admin: 05/30/20 02:51 Dose: 10 ml Documented by: Tamsulosin HCl (Tamsulosin Hcl 0.4 Mg Capsule) 0.4 mg PO BID [facility] Last Admin: 06/01/20 22:01 Dose: 0.4 mg Documented by: Torsemide (Torsemide 100 Mg Tablet) 100 mg PO DAILY [facility] Last Admin: 06/01/20 08:43 Dose: 100 mg Documented by: Zolpidem Tartrate (Zolpidem Tartrate 5 Mg Tablet) 5 mg PO QHS PRN PRN PRN Reason: INSOMNIA Last Admin: 05/30/20 22:16 Dose: 5 mg Documented by: Discharge Diet: Renal Diet Discharge Activity: No Restrictions Home Medications: Medications to take at Discharge Finasteride 5 mg PO DAILY 07/30/19 Pantoprazole Sodium [Protonix] 40 mg PO DAILY #30 tab 09/09/19 Tamsulosin HCl [Flomax] 0.4 mg PO BID #60 cap 09/09/19 Amlodipine [Norvasc] 5 mg PO DAILY 05/26/20 Aspirin [Aspirin, Baby] 81 mg PO DAILY@0800 05/26/20 Atorvastatin Calcium 80 mg PO DAILY 05/26/20 Hydralazine HCl 50 mg PO TID 05/26/20 Torsemide 100 mg PO DAILY 05/26/20 levETIRAcetam tablet [Keppra tablet] 500 mg PO BID 05/26/20 Carvedilol [Coreg] 12.5 mg PO BID 05/27/20 Acetaminophen [Tylenol Tablet] 650 mg PO Q6H PRN PRN tab 06/02/20 Guaifenesin/Codeine [Robitussin AC] 5 ml PO Q6H PRN PRN udc 06/02/20 Insulin Glargine,Hum.rec.anlog [Lantus Solostar] 5 unit SQ BREAKFAST #0 06/02/20 Insulin Lispro [Humalog KwikPen] See Protocol SC ACHS insuln.pen 06/02/20 Senna/Docusate Sodium [Senokot-S] 2 tab PO BID PRN PRN tab 06/02/20 Primary Care Physician: Paul Martinez Chi, MD [Primary Care Provider] - Please follow up with your Primary Care Physician in: IN 2-3 WEEKS Disposition: Assisted facility Minutes spent on discharge:: 45 Patient Condition:: Stable Medical Necessity - Tobacco Use Smoking Status: Former smoker Tobacco Use: Cigarettes Meaningful Use Info Meaningful Use Diagnoses (Choose all that apply): None applicable Inpatient E&M: 87628 Disch Hosp
--- NOTE | 2020-06-02 11:49 | DIALYSIS ---
Hemodialysis completed x 3hrs 15min. Access via right chest hd cath. net UF 900ml. Pt wong well. See HD flowsheet on chart.
[2020-06-02 11:50] LABS: Bedside Glucose 118 mg/dL (70-110)
--- NOTE | 2020-06-02 12:09 | CASEMGMT ---
Addendum entered by Alysia De Luna 06/02/20 13:16: SW received call from Jaycee TRUJILLO Reviewer at [facility] stating this worker needs to call . SW placed a call to this number, was transferred to customer service and spoke with Stefani. Stefani states she is not able to tell this worker the status of pt's appeal and was transferred to claims. SW spoke with Vinayak in claims. Vinayak states he is not able to tell this worker the status of pt's appeal and was transferred back to authorization line where it is an automatic voice system, SW not able to speak with anyone at [facility]. SW placed a call back to the phone number ( option 3) that this worker initiated the appeal for denial to request update on appeal. Original Note: Social Work Note SW received call from Kizzy at [facility] stating pt's medicaid is not showing active, LOC unable to be completed. HEIDI explained to Kizzy that pt has pending medicaid and that this worker received pending medicaid number form [facility]. HEIDI explained that this worker has sent pt's to SNF under pending medicaid before. Kizzy states there needs to be an open box for pt on medicaid and that is not showing at this time. HEIDI explained that this worker will call Eve at [facility] and ask them about it. HEIDI placed a call to Eve Taylor and asked about pt's pending medicaid. Eve states she will have to speak with her quality assurance supervisor final and the final inspector balance wheel who was assigned to pt's case. HEIDI placed a call to Jaycee TRUJILLO reviewer at [facility] and left message inquiring about status of pt's appeal. Alysia De Luna TRAFFIC SIGN SUPERVISOR, DRIVER MATERIAL HANDLER
[2020-06-02] MEDS: Ferrous Sulfate 325 MG Tablet PO (12:35)
[2020-06-02] MEDS: amLODIPine 5 MG Tablet PO (12:35)
[2020-06-02] MEDS: Pantoprazole Sodium 40 MG Tablet PO (12:36)
[2020-06-02] MEDS: Finasteride 5 MG Tablet PO (12:36)
[2020-06-02] MEDS: Torsemide 100 MG Tablet PO (12:36)
[2020-06-02] MEDS: Aspirin 81 MG TAB.CHEW PO (12:36)
[2020-06-02] MEDS: Tamsulosin HCl 0.4 MG Capsule PO ×2 (12:36→21:01)
[2020-06-02] MEDS: levETIRAcetam 500 MG Tablet PO ×2 (12:36→21:02)
--- NOTE | 2020-06-02 14:05 | PN_ITS ---
Patient Problems: Active and Suspected Problems (Last Reviewed 05/26/20 @ 18:[address] Kathia Barney MD) Frequent falls (Acute) Generalized weakness (Acute) Debility (Acute) Frequent falls (Acute) Reason for Visit: Adult failure to thrive Subjective: Patient is a 69-year-old gentleman with multiple comorbidities including end- stage renal disease presented with progressive generalized weakness. Patient has been on admission for almost a week awaiting insurance precertification prior to patient being transferred to senior living facility Objective: GENERAL: cooperative HEENT: Atraumatic; EYES; Anicteric, Normal Conjunctiva NECK; supple, normal thyroid, RESPIRATORY: Diminished to auscultation CARDIOVASCULAR: Regular S1 S2, GI: soft, normoactive bowel sounds, : No Renal angle tenderness; EXTREMITIES: No edema, no clubbing, MUSCULOSKELETAL: no muscle waisting NEURO: Awake; no lateralizing signs. SKIN: No Rash PSYCH; Flat affect Vitals/I&O's: Vital Signs Temp Pulse Resp BP Pulse Ox 99.2 F H 81 14 130/61 H 97 06/02/20 13:37 06/02/20 13:37 06/02/20 13:37 06/02/20 13:37 06/02/20 13:37 Oxygen Flow Rate (L/min) 2 Oxygen Delivery Method Room Air Weight: 66.9 kg Body Mass Index (BMI) 23.0 Finger Stick Blood Glucose 480 Intake and Output for Last 24 Hours 05/31/20 06/01/20 06/02/20 23:59 23:59 23:59 Intake Total 750 / 750 270 / 270 200 / 200 Output Total 1153 / 1153 1800 / 1800 Balance -403 / -403 270 / 270 -1600 / -1600 Laboratory Results 06/01/20 16:17: POC Glucose 180 H 06/01/20 21:58: POC Glucose 144 H 06/02/20 06:49: POC Glucose 117 H 06/02/20 11:45: POC Glucose 118 H Current Medications Acetaminophen (Acetaminophen 325 Mg Tablet) 650 mg PO Q6H PRN PRN PRN Reason: Pain Score 1-10/Temp > 100.7 F Last Admin: 05/30/20 02:51 Dose: 650 mg Documented by: Amlodipine Besylate (Amlodipine 5 Mg Tablet) 5 mg PO DAILY [facility] Last Admin: 06/02/20 12:35 Dose: 5 mg Documented by: Aspirin (Aspirin 81 Mg Tab.Chew) 81 mg PO DAILY@0800 [facility] Last Admin: 06/02/20 12:36 Dose: 81 mg Documented by: Atorvastatin Calcium (Atorvastatin Calcium 80 Mg Tablet) 80 mg PO DAILY@2200 [facility] Last Admin: 06/01/20 22:00 Dose: 80 mg Documented by: Ferrous Sulfate (Ferrous Sulfate 325 Mg Tablet) 325 mg PO DAILY@1200 [facility] Last Admin: 06/02/20 12:35 Dose: 325 mg Documented by: Finasteride (Finasteride 5 Mg Tablet) 5 mg PO DAILY [facility] Last Admin: 06/02/20 12:36 Dose: 5 mg Documented by: Guaifenesin/Codeine Phosphate (Guaifenesin/Codeine 5 Ml Udc) 5 ml PO Q6H PRN RI N PRN Reason: COUGH/CONGESTION Last Admin: 06/02/20 06:45 Dose: 5 ml Documented by: Heparin Sodium (Porcine) (Heparin Injection (Vial) 5,000 Unit/Ml Vial) 5,000 unit SC Q8 [facility] Last Admin: 06/02/20 13:35 Dose: 5,000 unit Documented by: Hydralazine HCl (Hydralazine 50 Mg Tablet) 50 mg PO TID [facility] Last Admin: 06/02/20 13:33 Dose: 50 mg Documented by: Sodium Chloride () 250 mls @ 15 mls/hr IV .[id number] PRN PRN Reason: Saline Flush Sodium Chloride () 250 mls @ 15 mls/hr IV .[id number] PRN PRN Reason: Additional IVPB Infusion Sodium Chloride () 200 mls @ 0 mls/hr IV .Q0M PRN PRN Reason: HYPOTENSION/PATENCY Insulin Glargine (Insulin Glargine 100 Units/Ml Pen) 5 units SC 0700 [facility] Insulin Human Lispro (Insulin Lispro 100 Unit/Ml Insuln.Pen) 0 unit SC ACHS [facility]; Protocol Last Admin: 06/02/20 11:52 Dose: Not Given Documented by: Levetiracetam (Levetiracetam 500 Mg Tablet) 500 mg PO BID [facility] Last Admin: 06/02/20 12:36 Dose: 500 mg Documented by: Ondansetron HCl (Ondansetron 4 Mg/2 Ml Vial) 4 mg IV Q8H PRN PRN PRN Reason: NAUSEA/VOMITING Pantoprazole Sodium (Pantoprazole Sodium 40 Mg Tablet) 40 mg PO DAILY [facility] Last Admin: 06/02/20 12:36 Dose: 40 mg Documented by: Senna/Docusate Sodium (Senna/Docusate Sodium 1 Tablet) 2 tablet PO BID PRN PRN PRN Reason: Constipation Sodium Chloride (0.9% Saline Lock 10 Ml Syringe) 10 - 40 ml IV UD PRN PRN Reason: SALINE FLUSH Last Admin: 05/30/20 02:51 Dose: 10 ml Documented by: Tamsulosin HCl (Tamsulosin Hcl 0.4 Mg Capsule) 0.4 mg PO BID [facility] Last Admin: 06/02/20 12:36 Dose: 0.4 mg Documented by: Torsemide (Torsemide 100 Mg Tablet) 100 mg PO DAILY [facility] Last Admin: 06/02/20 12:36 Dose: 100 mg Documented by: Zolpidem Tartrate (Zolpidem Tartrate 5 Mg Tablet) 5 mg PO QHS PRN PRN PRN Reason: INSOMNIA Last Admin: 05/30/20 22:16 Dose: 5 mg Documented by: STROKE Vital Signs/Narrative: Vital Signs Temp Pulse Resp BP BP Pulse Ox 06/02/20 13:37 99.2 F H 81 14 130/61 H 97 06/02/20 13:33 81 130/61 H 06/02/20 11:50 117/57 L 06/02/20 11:48 98.1 F 96 18 115/77 Medical Necessity - Tobacco Use Smoking Status: Former smoker Tobacco Use: Cigarettes Assessment/Plan All Active Problems (Last Reviewed 05/26/20 @ 18:[address] Kathia Barney MD) Aspiration into airway (Ruled-out) Frequent falls (Acute) Generalized weakness (Acute) Debility (Acute) Frequent falls (Acute) Patient is a 69-year-old gentleman with multiple comorbidities including end- stage renal disease presented with progressive generalized weakness 1. Physical deconditioning due to multiple medical comorbidities including end- stage renal disease, CVA diabetes mellitus type 2 -Admitted to regular nursing floor - Requested for PT OT eval and social media content manager to assist with discharge planning -05/30/2020; patient was denied by his insurance company regarding transfer to senior living facility did appeal patient was denied again. Insurance company requested for another peer to peer. Patient kept informed of the above -05/31/2020: Awaiting second peer to peer discussion with patient's insurance company. -06/01/2020; Patient seen complains of feeling weak following his dialysis the day prior. Still awaiting for insurance precertification prior to disposition to a senior living facility. A second appeal was sent for peer to peer awaiting call from patient's insurance company 06/02/2020; awaiting insurance preset prior to patient being transferred to senior living facility 2. End-stage renal disease ?Patient on hemodialysis on Wednesdays and Fridays consult placed to nephrology for dialysis orders 3. Seizure disorder ?Patient is on Keppra did continue with home meds 4. Hypertension - Blood pressure controlled, home medications continued with dose adjustment as needed 5. Recurrent falls ?With previous history of subdural hemorrhage, intracerebral hemorrhage and intraventricular hemorrhage and subarachnoid hemorrhage following a fall 6. Coronary artery disease ?With history of CABG 7. Diabetes mellitus type II -Complications including end-stage renal disease. Currently managed with diet 8. BPH ?Patient on tamsulosin 9. Dyslipidemia -Patient is on statin therapy, continued at home dose 10. DVT prophylaxis ?On SC heparin Inpatient E&M: 99567 Subs Hosp L2
--- NOTE | 2020-06-02 14:05 | CASEMGMT ---
Social Work Note HEIDI spoke with Ely at [facility]. Ely reviewed pt's case. . Ely states RN/MD requested updated clinicals this morning. HEIDI informed Ely that this worker faxed updated clinicals this morning to CASSANDRA Champion. Ely states that since RN/MD requested updated clinicals, they have a day to review updated clinicals. Ely states that a decision will be made tomorrow 06/03/2020. [facility] so a decision will be made tomorrow. Ely states results will be faxed. Ely also states that SW can call option 3 and ask for determination as well. HEIDI placed a call to Ayana at [facility] and updated her that [employer] is making a decision tomorrow. HEIDI updated Ayana that this worker did submit for LOC so the plan will be to get LOC results and once [facility] makes a decision tomorrow plan is discharge tomorrow either under [employer] or LOC. Ayana states understanding, agreeable to plan. Ayana states SW can all [phone] and updated RN tomorrow on pt's discharge. SW in to speak with pt. HEIDI updated pt that [facility] is making a decision tomorrow. HEIDI updated pt that plan is to get pt to [facility] tomorrow either under [employer] or LOC. HEIDI updated pt that LOC has been submitted and reiterated that if pt goes to [facility] under pending medicaid, it doesn't mean pt will be approved for Medicaid and pt may get a bill for SNF stay. Pt states understanding, agreeable to plan. HEIDI updated CASSANDRA CASTILLO who updated physician. HEIDI placed a call to Eve Taylor at [facility] [facility] and asked about pt's open block for pending medicaid. Eve states she passed it along to her shore working supervisor so it should be fixed. HEIDI placed a call to Kizzy at [facility] [phone] and asked her about pt's LOC. Kizzy states she is not able to look up pt's open block and the person who does that is not available at this time. HEIDI asked Kizzy to email LOC results to both this worker and Corinne BARKLEY who will be SW tomorrow. HEIDI provided Kizzy with Corinne's email address. Plan: [facility] tomorrow either under [employer] or LOC. SW waiting for results of LOC Alysia De Luna DIRECTOR FAMILY, WATER SAFETY TEACHER
--- NOTE | 2020-06-02 15:00 | CASEMGMT ---
Social Work Note SW placed green sheet, transport form, COVID screening tool and PAS/RR on pt's chart. HEIDI wrote on green sheet that staff will need to check with Corinne BARKLEY before pt can discharge to SNF tomorrow. Alysia De Luna ADMEASURER, LAUNDRY SORTER
[2020-06-02 17:21] LABS: Bedside Glucose 99 mg/dL (70-110)
[2020-06-02] MEDS: 0.9% Saline Lock 10 ML Syringe IV (20:56)
[2020-06-02] MEDS: Atorvastatin Calcium 80 MG Tablet PO (21:01)
[2020-06-02 22:10] LABS: Bedside Glucose 123 mg/dL (70-110)
[2020-06-03] VITALS (7 sets, daily range): BP systolic 130–150; BP diastolic 70–72; PULSE 80–84; RESP 18–20; TEMP 36.7–37.1; O2SAT 94–96
[2020-06-03] MEDS: hydrALAZINE 50 MG Tablet PO ×2 (06:36→12:29)
[2020-06-03] MEDS: Heparin Injection (Vial) 5,000 UNIT/ML VIAL 5000 UNIT SC (06:36)
[2020-06-03] MEDS: levETIRAcetam 500 MG Tablet PO (07:52)
[2020-06-03] MEDS: Aspirin 81 MG TAB.CHEW PO (07:52)
[2020-06-03] MEDS: Tamsulosin HCl 0.4 MG Capsule PO (07:53)
[2020-06-03] MEDS: Torsemide 100 MG Tablet PO (07:53)
[2020-06-03] MEDS: Finasteride 5 MG Tablet PO (07:54)
[2020-06-03] MEDS: amLODIPine 5 MG Tablet PO (07:54)
[2020-06-03] MEDS: Pantoprazole Sodium 40 MG Tablet PO (07:54)
[2020-06-03 08:05] LABS: Bedside Glucose 105 mg/dL (70-110)
[2020-06-03 11:10] LABS: Bedside Glucose 175 mg/dL (70-110)
--- NOTE | 2020-06-03 12:20 | CASEMGMT ---
SW did receive PAS/RR results and level of care. However we still need to wait for [employer]'s determination before sending pt to the [place] [facility] under [place]. SW called [facility], the insurance overturned the decision and deemed it medically necessary for pt to go to the [place] [facility], authorization number is [id number], approved for 9 days. SW let RN and charge weigher know, physician notified. SW also notified pt, he is agreeable to go today, glad it was approved. SW called [facility], let them know pt can come today and let Ayana in admissions know as well, gave her the authorization number. SW also let her know that pt was also given level of care and will email that to her, and put a copy in the packet for her. No further social service needs, pt can be discharged once the COVID results come back negative. MIGUELINA Duenas
[2020-06-03] MEDS: Ferrous Sulfate 325 MG Tablet PO (12:30)
[2020-06-03 15:15] LABS: Probe Check PASS; Specimen Processing Control PASS
--- NOTE | 2020-06-03 15:25 | NURSING ---
Elda notified that pt will be transferred to [facility]
[2020-06-03 16:30] LABS: Bedside Glucose 128 mg/dL (70-110)
--- NOTE | 2020-06-03 16:41 | DS.PCM_ITS ---
Discharge Date and Diagnosis - Problem List Patient Problems: Active and Suspected Problems (Last Reviewed 05/26/20 @ 18:[address] Kathia Barney MD) Frequent falls (Acute) Generalized weakness (Acute) Debility (Acute) Frequent falls (Acute) Date of Admission: 05/26/20 Date of Discharge: 06/03/20 - Primary Discharge Diagnosis Acute Problems: Active Problems (Last Reviewed 05/26/20 @ 18:[address] Kathia Barney MD) Frequent falls (Acute) Generalized weakness (Acute) Debility (Acute) Frequent falls (Acute) - Secondary Discharge Diagnosis Chronic Problems: Chronic Problems (Last Reviewed 05/26/20 @ 18:[address] Kathia Barney MD) End-stage renal disease on hemodialysis (Chronic) End stage renal disease on dialysis (Chronic) Depression (Chronic) BPH with obstruction/lower urinary tract symptoms (Chronic) Left ventricular hypertrophy (Chronic) Diverticulosis (Chronic) Tobacco dependence in remission (Chronic) smoked for only 3 hours hx of APLL (Chronic) Left leg- 05/16/19 left superficial femoral artery and left popliteal artery angioplasty by Dr. Kamara History of angioplasty of peripheral vessel (Chronic ~2017) 01/01/16 L Peroneal and L superficial femoral A. angioplasty by Dr. Kamara HTN (hypertension) (Chronic) History of stroke (Chronic) Left parietal in August of 2017 Peripheral vascular disease (Chronic) BL LE PVD - status post angioplasty on 3 occasions Status post coronary artery bypass graft (Chronic) 3 vessel CABG per pt in 2014? Diabetes mellitus, type 2 (Chronic) historically poorly controlled due to non-compliance GERD (gastroesophageal reflux disease) (Chronic) Hyperlipidemia (Chronic) CAD (coronary artery disease) (Chronic) Hospital Course and Treatment Imaging Results: Clinical Impression(s) from Imaging Studies Chest X-Ray 05/26/20 15:15 IMPRESSION: No acute pulmonary process Electronically Signed: Cristian Ennis MD at 16:35 EDT , Service support , Brain CT 05/26/20 22:34 IMPRESSION: No CT evidence of acute infarct or hemorrhage. If there is clinical concern for hyperacute ischemia that is not evident by CT, MRI should be considered if possible. Electronically Signed: Camacho Montgomery MD at 0:01 EDT Tel , Service support , Consults: Nephrology Operations: None Procedures: Dialysis Summary of Care Provided: Per HPI: The patient is a 69 year old M with past medical history as mentioned above presented to the emergency room because of reported near syncopal episode and weakness. Patient is a poor informant and was not able to provide detailed history but was able to answer some questions. He mentioned that he went to dialysis today and after dialysis, he felt very weak, tired and he had an episode when he was about to swallow his dentures and started coughing. He has been coughing since this morning, dry cough no sputum production. He denied shortness of breath, fever or chills. He denied chest pain, palpitation, loss of consciousness. He denies significant trauma. He had a history of ESRD on hemodialysis on Mondays, Wednesdays and Fridays. He has history of type 2 diabetes mellitus, has been on insulin and hemoglobin A1c was 6.9% on July,. History of hypertension and he has been on Norvasc, hydralazine and torsemide. In the emergency department, his blood pressure was slightly elevated and then improved, other vital signs were stable. Routine blood work was remarkable for chronic anemia, BUN of 28, creatinine is 3.93. EKG revealed normal sinus rhythm, RBBB, prolonged QTC, no acute changes. Lactic acid was normal. Chest x-ray showed no acute findings. He is being admitted for reported near syncopal episode, recurrent falls, physical debility and functional decline for placement. Hospital Course: 1. Physical deconditioning secondary to multiple medical comorbidities including end-stage renal disease/CVA/DM 2/seizure disorder/recurrent falls- 69-year-old male presented to the emergency department secondary to a near syncopal episode and weakness. He is undergoing dialysis Friday, and we appreciate nephrology's assistance in this regard. He was unable to complete activities of daily living at home and underwent physical therapy here which demonstrated the need for fdc placement. He was accepted today and his Covid test was negative therefore he will be discharged today. I did discuss with him the risks and benefits of discharge today and he expressed understanding. 2. Seizure disorder, end-stage renal disease, HTN, CAD, DM 2, BPH, hyperlipidemia are all chronic medical conditions which complicate his care. His home medications were continued where appropriate Patient Problems: Active and Suspected Problems (Last Reviewed 05/26/20 @ 18:[address] Kathia Barney MD) Frequent falls (Acute) Generalized weakness (Acute) Debility (Acute) Frequent falls (Acute) - Physical Exam Vitals/I&O's: Vital Signs Temp Pulse Resp BP Pulse Ox 98.1 F 81 18 150/70 H 96 06/03/20 16:15 06/03/20 16:15 06/03/20 16:15 06/03/20 16:15 06/03/20 16:15 Oxygen Flow Rate (L/min) 4 Oxygen Delivery Method Room Air Weight: 147 lb 7.828 oz Body Mass Index (BMI) 23.0 Finger Stick Blood Glucose 480 Intake and Output for Last 24 Hours 06/01/20 06/02/20 06/03/20 23:59 23:59 23:59 Intake Total 270 / 270 440 / 640 950 / 950 Output Total 1800 / 1800 Balance 270 / 270 -1360 / -1160 950 / 950 General: Alert, Cooperative, No apparent distress HEENT: Atraumatic, PERRLA, EOMI, Normocephalic Oral: Moist Mucosa Neck: Supple, No JVD Lungs: Clear to auscultation, Normal air movement, No rhonchi, No wheeze, No rales, Diminished Cardiovascular: Regular rate, Regular Rhythm, Normal S1, Normal S2, No murmurs Abdomen: Soft, Non Tender, Non-Distended, No Hepato-splenomegaly Extremities: No edema, Capillary Refill Less than 3 Seconds Skin: No rashes, No breakdown Neurological: Neuro grossly intact, Sensory exam intact to light touch and pain Psych/Mental Status: Flat Affect Laboratory Results 06/02/20 17:16: POC Glucose 99 06/02/20 21:46: POC Glucose 123 H 06/03/20 03:40: COVID-19 (RACHEL) Cancelled 06/03/20 03:40: COVID-19 (RACHEL) Negative 06/03/20 07:56: POC Glucose 105 06/03/20 11:06: POC Glucose 175 H 06/03/20 16:26: POC Glucose 128 H Current Medications Acetaminophen (Acetaminophen 325 Mg Tablet) 650 mg PO Q6H PRN PRN PRN Reason: Pain Score 1-10/Temp > 100.7 F Last Admin: 05/30/20 02:51 Dose: 650 mg Documented by: Amlodipine Besylate (Amlodipine 5 Mg Tablet) 5 mg PO DAILY [facility] Last Admin: 06/03/20 07:54 Dose: 5 mg Documented by: Aspirin (Aspirin 81 Mg Tab.Chew) 81 mg PO DAILY@0800 [facility] Last Admin: 06/03/20 07:52 Dose: 81 mg Documented by: Atorvastatin Calcium (Atorvastatin Calcium 80 Mg Tablet) 80 mg PO DAILY@2200 [facility] Last Admin: 06/02/20 21:01 Dose: 80 mg Documented by: Ferrous Sulfate (Ferrous Sulfate 325 Mg Tablet) 325 mg PO DAILY@1200 [facility] Last Admin: 06/03/20 12:30 Dose: 325 mg Documented by: Finasteride (Finasteride 5 Mg Tablet) 5 mg PO DAILY [facility] Last Admin: 06/03/20 07:54 Dose: 5 mg Documented by: Guaifenesin/Codeine Phosphate (Guaifenesin/Codeine 5 Ml Udc) 5 ml PO Q6H PRN PRN PRN Reason: COUGH/CONGESTION Last Admin: 06/02/20 06:45 Dose: 5 ml Documented by: Heparin Sodium (Porcine) (Heparin Injection (Vial) 5,000 Unit/Ml Vial) 5,000 unit SC Q8 [facility] Last Admin: 06/03/20 12:30 Dose: Not Given Documented by: Hydralazine HCl (Hydralazine 50 Mg Tablet) 50 mg PO TID [facility] Last Admin: 06/03/20 12:29 Dose: 50 mg Documented by: Sodium Chloride () 250 mls @ 15 mls/hr IV .[id number] PRN PRN Reason: Saline Flush Sodium Chloride () 250 mls @ 15 mls/hr IV .[id number] PRN PRN Reason: Additional IVPB Infusion Sodium Chloride () 200 mls @ 0 mls/hr IV .Q0M PRN PRN Reason: HYPOTENSION/PATENCY Insulin Glargine (Insulin Glargine 100 Units/Ml Pen) 5 units SC 0700 [facility] Last Admin: 06/03/20 10:27 Dose: 5 u Documented by: Insulin Human Lispro (Insulin Lispro 100 Unit/Ml Insuln.Pen) 0 unit SC [facility]; Protocol Last Admin: 06/03/20 16:30 Dose: Not Given Documented by: Levetiracetam (Levetiracetam 500 Mg Tablet) 500 mg PO BID [facility] Last Admin: 06/03/20 07:52 Dose: 500 mg Documented by: Ondansetron HCl (Ondansetron 4 Mg/2 Ml Vial) 4 mg IV Q8H PRN PRN PRN Reason: NAUSEA/VOMITING Pantoprazole Sodium (Pantoprazole Sodium 40 Mg Tablet) 40 mg PO DAILY [facility] Last Admin: 06/03/20 07:54 Dose: 40 mg Documented by: Senna/Docusate Sodium (Senna/Docusate Sodium 1 Tablet) 2 tablet PO BID PRN PRN PRN Reason: Constipation Sodium Chloride (0.9% Saline Lock 10 Ml Syringe) 10 - 40 ml IV UD PRN PRN Reason: SALINE FLUSH Last Admin: 06/02/20 20:56 Dose: 10 ml Documented by: Tamsulosin HCl (Tamsulosin Hcl 0.4 Mg Capsule) 0.4 mg PO BID [facility] Last Admin: 06/03/20 07:53 Dose: 0.4 mg Documented by: Torsemide (Torsemide 100 Mg Tablet) 100 mg PO DAILY [facility] Last Admin: 06/03/20 07:53 Dose: 100 mg Documented by: Zolpidem Tartrate (Zolpidem Tartrate 5 Mg Tablet) 5 mg PO QHS PRN PRN PRN Reason: INSOMNIA Last Admin: 05/30/20 22:16 Dose: 5 mg Documented by: Discharge Diet: Renal Diet Discharge Activity: No Restrictions Home Medications: Medications to take at Discharge Finasteride 5 mg PO DAILY 07/30/19 Pantoprazole Sodium [Protonix] 40 mg PO DAILY #30 tab 09/09/19 Tamsulosin HCl [Flomax] 0.4 mg PO BID #60 cap 09/09/19 Amlodipine [Norvasc] 5 mg PO DAILY 05/26/20 Aspirin [Aspirin, Baby] 81 mg PO DAILY@0800 05/26/20 Atorvastatin Calcium 80 mg PO DAILY 05/26/20 Hydralazine HCl 50 mg PO TID 05/26/20 Torsemide 100 mg PO DAILY 05/26/20 levETIRAcetam tablet [Keppra tablet] 500 mg PO BID 05/26/20 Carvedilol [Coreg] 12.5 mg PO BID 05/27/20 Acetaminophen [Tylenol Tablet] 650 mg PO Q6H PRN PRN tab 06/02/20 Guaifenesin/Codeine [Robitussin AC] 5 ml PO Q6H PRN PRN udc 06/02/20 Insulin Glargine,Hum.rec.anlog [Lantus Solostar] 5 unit SQ BREAKFAST #0 06/02/20 Insulin Lispro [Humalog KwikPen] See Protocol SC ACHS insuln.pen 06/02/20 Senna/Docusate Sodium [Senokot-S] 2 tab PO BID PRN PRN tab 06/02/20 Primary Care Physician: Paul Martinez Chi, MD [Primary Care Provider] - Please follow up with your Primary Care Physician in: IN 2-3 WEEKS Disposition: Residential facility Minutes spent on discharge:: 35 Patient Condition:: Stable Medical Necessity - Tobacco Use Smoking Status: Former smoker Tobacco Use: Cigarettes Meaningful Use Info Meaningful Use Diagnoses (Choose all that apply): None applicable Inpatient E&M: 56421 Disch Hosp
== END 2020-06-03 18:41 | disposition skilled nursing facility (03) ==
LOC: ED 18:16 → MS3 05-27 10:26
PROVIDERS: Hospitalist; Internal Medicine; Emergency Provider Emergency Medicine; PCP Family Medicine Geriatric Medicine; Visit Provider Family Medicine
DX: R55 Syncope and collapse (principal); R53.1 Weakness; E11.22 Type 2 diabetes mellitus with diabetic chronic kidney disease; N18.6 End stage renal disease; I12.0 Hypertensive chronic kidney disease with stage 5 chronic kidney disease or end stage renal disease; R29.6 Repeated falls; G40.909 Epilepsy, unspecified, not intractable, without status epilepticus; I25.10 Atherosclerotic heart disease of native coronary artery without angina pectoris; F32.9 Major depressive disorder, single episode, unspecified; F41.9 Anxiety disorder, unspecified; N40.1 Benign prostatic hyperplasia with lower urinary tract symptoms; N13.8 Other obstructive and reflux uropathy; E11.51 Type 2 diabetes mellitus with diabetic peripheral angiopathy without gangrene; T17.890A Other foreign object in other parts of respiratory tract causing asphyxiation, initial encounter; X58.XXXA Exposure to other specified factors, initial encounter; E78.5 Hyperlipidemia, unspecified; K21.9 Gastro-esophageal reflux disease without esophagitis; Z87.891 Personal history of nicotine dependence; Z95.1 Presence of aortocoronary bypass graft; Z86.73 Personal history of transient ischemic attack (TIA), and cerebral infarction without residual deficits; Z79.899 Other long term (current) drug therapy; Z79.82 Long term (current) use of aspirin; Z79.4 Long term (current) use of insulin; Z99.2 Dependence on renal dialysis; D72.829 Elevated white blood cell count, unspecified; D64.9 Anemia, unspecified
CPT/HCPCS: 36415; 70450; 71046; 80048; 82962; 83605; 83735; 85025; 85027; 87635; 90937; 93005; 96372; 96374; 96375; 96376; 97110; 97116; 97162; 97166; 97530; 99218; 99251; 99283; 99285; J7030; A4216; G0257; G0378; G0463; Q5106; U0002; U0003

== ENCOUNTER 2020-06-08 09:01 | Day surgery (SDC) | payer MEDICARE, SELFPAY ==
[2020-05-23 13:22] VITALS: BMI 23.4
[2020-05-26 22:36] VITALS: BMI 23.0
[2020-06-08] VITALS (7 sets, daily range): BP systolic 105–119; BP diastolic 57–67; PULSE 63–72; RESP 14–18; TEMP 36.5–37.2; O2SAT 94–100; BMI 20.9
[2020-06-08 09:56] LABS: Bedside Glucose 128 mg/dL (70-110)
[2020-06-08] MEDS: 0.9% Normal Saline 1,000 ML 30 ML IV (10:04)
--- NOTE | 2020-06-08 10:04 | HP.PCM_ITS ---
Problem List (1) End-stage renal disease on hemodialysis Status: Chronic History and Physical Date of Admission: 06/08/20 Intake Visit Reasons: PERMANENT ACCESS/ VM 04/25 [facility] Chief Complaint: fistula creation Integrated Marketing Specialist Required: No Is patient in pain?: No Allergies No Known Allergies Allergy (Verified 05/23/20 13:23) Medications Metoprolol Tartrate [Lopressor (beta ginny)] 50 mg PO BID 08/02/15 [History Confirmed 05/23/20] Cholecalciferol (VIT D3) [Vitamin D3] 3,000 unit PO DAILY 07/29/19 [History Confirmed 05/23/20] Finasteride 5 mg PO DAILY 07/30/19 [History Confirmed 05/23/20] Melatonin 3 mg Tablet 6 mg PO QHS 07/30/19 [History Confirmed 05/23/20] Amlodipine [Norvasc] 10 mg PO QHS #30 tab 09/09/19 [Rx Confirmed 05/23/20] Ascorbic Acid [Vitamin C] 500 mg PO DAILY@1200 #30 tab 09/09/19 [Rx Confirmed 05/23/20] Aspirin [Aspir 81] 81 mg PO DAILY #30 tablet. 09/09/19 [Rx Confirmed 05/23/20] Ferrous Sulfate 325 mg PO DAILY@1200 #30 tab 09/09/19 [Rx Confirmed 05/23/20] Hydralazine HCl 100 mg PO Q8 #90 tab 09/09/19 [Rx Confirmed 05/23/20] Lisinopril [Zestril] 10 mg PO DAILY #30 tab 09/09/19 [Rx Confirmed 05/23/20] Pantoprazole Sodium [Protonix] 40 mg PO DAILY #30 tab 09/09/19 [Rx Confirmed 05/23/20] Polyethylene Glycol 3350 [Miralax] 17 gm PO DAILY #30 packet 09/09/19 [Rx Confirmed 05/23/20] Sertraline HCl [Zoloft] 100 mg PO DAILY #30 tab 09/09/19 [Rx Confirmed 05/23/20] Sucralfate [Carafate] 1 gm PO 1HR_ACHS #120 tab 09/09/19 [Rx Confirmed 05/23/20] Tamsulosin HCl [Flomax] 0.4 mg PO BID #60 cap 09/09/19 [Rx Confirmed 05/23/20] levETIRAcetam tablet [Keppra tablet] 500 mg PO BID #60 tab 09/09/19 [Rx Confirmed 05/23/20] atorvastatin 40 mg tablet 80 mg PO QHS tab 05/23/20 [History Confirmed 05/23/20] [facility] Medical History Depression (Acute) UGI bleed (Suspected) Orthostatic hypotension (Acute) Anemia (Acute) Heme + stool (Acute) BPH with obstruction/lower urinary tract symptoms (Chronic) Complicated UTI (urinary tract infection) (Acute) Subdural hemorrhage (Acute) Subarachnoid hemorrhage (Acute) Intracerebral hemorrhage (Acute) Closed intraventricular hemorrhage (Acute) Cephalgia (Acute) Left ventricular hypertrophy (Chronic) Diverticulosis (Chronic) Low vitamin D level (Chronic) Tobacco dependence in remission (Chronic) HTN (hypertension) (Chronic) History of stroke (Chronic) Chronic kidney disease, stage 3 (Chronic) Peripheral vascular disease (Chronic) Diabetes mellitus, type 2 (Chronic) GERD (gastroesophageal reflux disease) (Chronic) Hyperlipidemia (Chronic) CAD (coronary artery disease) (Chronic) Fatigue (Acute) Heart disease (Acute) KIMI (acute kidney injury) (Resolved) Hypertensive crisis (Resolved) Surgical History hx of APLL (Chronic) History of angioplasty of peripheral vessel (Chronic ~2017) History of angioplasty of peripheral vessel (Chronic ~2016) Status post coronary artery bypass graft (Chronic) Family History Brother Diabetes Mother Hypertension Daughter Diabetes Social History (Updated 05/23/20 @ 13:[address] Valentino Kamara MD) Smoking Status: Former smoker alcohol intake: never substance use type: does not use caffeine: No what type of physical activity do you participate in: none frequency: does not exercise HPI HPI HPI: MODESTO DOMINGUEZ, is a 69 M who presents to the office today for surgical consultation regarding arteriovenous hemodialysis fistula creation. He has been on dialysis for at least 3 months. Apparently he was in [place] when he had right IJ tunnel dialysis catheters placed. He has had chronic renal insufficiency now for years.. He had bilateral upper extremity vein mapping as noted below. Bilateral cephalic veins were noted to be diminutive. He is right arm dominant. He states that he has had coronary artery bypass surgery approximately 3 years in the past. He gets dialyzed 3 times weekly at 3 hours per session. He is on aspirin and clopidogrel therapy. He states in part for his heart in part for his lower extremities. He is referred by Dr. Mainor Izquierdo and a written compromise surgical consult recommendations will be returned to him [facility] [address] [place], [place] [address] [address] Saphenous Vein Mapping, Bilat 04/25/20 1018 MR#: [id number] Name: MODESTO DOMINGUEZ [facility] #:[id number] : 1950 69From: Valentino Kamara MD Attending Dr: Dr. Mainor Izquierdo, LEONIDEStatus: REG CLI Ordering Dr: Mainor Izquierdo MDDate: 04/25/20 Location:CVSSex: Admitted: Reason For Study: ESRD Right Arm Left Arm Right cephalic vein is compressible. Left cephalic vein is compressible. Right Cephalic Vein at the shoulder Left Cephalic Vein at the shoulder measures .16 x .2 cm. measures .11 x .11 cm. Right Cephalic Vein mid bicep measures .15 Left Cephalic Vein at mid bicep measures .1 x .14 cm. x .08 cm. Right Cephalic Vein above antecub Left Cephalic Vein above antecub measures .15 measures .12 x .14 cm. x .16 cm. Right Cephalic Vein below antecub Left Cephalic Vein below antecub measures .13 measures .12 x .12 cm. x .13 cm. Right Cephalic Vein in the forearm Left Cephalic Vein in the forearm measures .19 x .2 cm. measures .15 x .14 cm. Right Cephalic Vein at the wrist measures .17 Left Cephalic Vein at the wrist measures .12 x .19 cm. x .11 cm. Right basilic vein is compressible. Left basilic vein is compressible. Right Basilic Vein mid bicep measures .28 Basilic vein at bicep measures .21 x .22 cm. x .33 cm. Basilic vein above antecub measures .25 x .24 Right Basilic Vein above antecub measures .25 cm. x .28 cm. Basilic vein below antecub measures .07 x .08 Right Basilic Vein below antecub measures .07 cm. x .11 cm. Basilic vein in the forearm measures .06 Right Basilic Vein in the forearm measures .1 x .07 cm. x .12 cm. Basilic vein at the wrist measures .08 x .09 Right Basilic Vein at the wrist measures .09 cm. x .12 cm. Brachial Art .36 x .4 cm. Brachial Art .41 x .44 cm. Brachial Art 99.0 cm/s. Brachial Art 82.0 cm/s. Radial Art .28 x .31 cm. Radial Art .2 x .2 cm. Radial Art 105.5 cm/s. Radial Art 89.8 cm/s. Interpretation Summary Diminutive bilateral cephalic veins as noted Borderline bilateral upper arm basilic veins Bilateral brachial and radial arteries with normal diameter and flow Ordering Physician: Mainor Izquierdo Performed By: Reynaldo Andres RVT ? 04/25/20 1658 Date Valentino Kamara MD HPI HPI HPI: MODESTO DOMINGUEZ, is a 69 M who presents to the office today for ROS General General: Yes weight change and fatigue; no appetite, colon cancer, breast cancer or weakness HEENT HEENT: Yes eye surgery; no difficulty swallowing, eye injury, swollen glands or hoarseness Endo Endocrine: Yes diabetes mellitus; no thyroid disease, thyroid cancer, Hair loss, heat intolerance or cold intolerance Skin Skin: No rash or changing moles Musc Musculoskeletal: No back problems, arthritis, rheumatoid arthritis, gout or joint pain Cardio Cardiovascular: Yes heart disease, high blood pressure, heart attack and heart stent; no murmur, pacemaker, atrial fibrillation, palpitations, shortness of breat with exertion or chest pain Psych Psychiatric: No depression, anxiety or hearing voices Resp Respiratory: No shortness of breath, No sleep apnea, No cough, No COPD, No asthma, No emphysema, No wheezing Gastro Gastrointestinal: No abdominal pain, No nausea or vomiting, No diarrhea, No constipation, No blood in stool, No acid reflux, No hemorrhoids, No ulcers, No gallbladder problem, No black,tarry stools Neuro Neurologic: No weakness Exam Const General: cooperative, no acute distress Nutritional Appearance: average body habitus Orientation: alert [facility] Head: normal to inspection Eyes General: appearance normal, both eyes and all related structures Neck Carotids: normal carotid upstroke Chest Other: Right chest dialysis catheters in place Resp Effort & Inspection: normal respiratory effort Auscultation: clear to auscultation bilaterally Cardio Rate: regular rate Rhythm: regular rhythm Heart Sounds: no murmurs GI Palpation: soft, no hepatosplenomegaly Auscultation: normal bowel sounds Musc Cervical Spine: normal cervical lordosis Skin Other: Eschars from self excoriation dorsal left arm proximal and distal to the antecubital space Neuro Cognition: normal cognition Extrem General: no calf tenderness Other: 1-2+ nonpitting bilateral lower extremity edema Psych Affect: normal affect Assessment & Plan Problems 1. Chronic renal failure, stage 5 N18.5 Plan 69-year-old gentleman diabetic with stage V chronic renal failure on hemodialysis via tunneled right IJ catheters now for at least the past 3 months. He is on aspirin and clopidogrel therapy. After personal inspection of his left upper extremity with ultrasound. His left forearm cephalic vein is borderl ine at 2 mm. The patient already has had catheters in place. I recommend to him that we perform a left upper arm basilic vein. This vein looks like it is much better able to support dialysis for him. I will need to perform this in a two-stage procedure. I have vigorously encouraged him to stop his self excoriation and allow the 2 areas of superficial injury heal in the left upper arm. He has had an opportunity to ask and have questions answered. He is aware that there are no guarantees of success and that additional treatment may be required. I appreciate the opportunity of assisting with his surgical care. He request that the surgical procedure only be performed on the . We will try to accommodate him but obviously that does limit our ability to schedule and expedite his care. Copy: Dr. Maionr Izquierdo and Dr Paul Kamara M.D., F.A.C.S. The patient was hospitalized at the [facility] from May 26 through June 03, 2020 because of frequent falls and generalized disability.. He is now in a nursing care facility.
--- NOTE | 2020-06-08 10:26 | PCM.DC.FIST ---
Discharge Diet: Renal Diet Discharge Activity: May Not Drive - for 2-3 days or while taking narcotic pain medications., May Shower, May Take a Tub Bath - in 5 days. Lifting Restrictions: 5 pounds Keep extremity elevated above heart level: - - Keep arm elevated above the heart level for 3 days. Additional Activity Instructions:: Exercise hand vigorously with a stress ball. Call your doctor if your incision/area has: Continuous Slow Oozing, Sudden Increased Bleeding - apply pressure and call your doctor., Increased Pain/ Swelling, Increased Redness, Foul Smelling Discharge Call your doctor if you observe: Fever of 101 or Higher Suture Line Care: Avoid Pulling/Pushing, Avoid Pinching/Bending Cleanse incision/area with: Keep Dressing Clean & Dry Additional Dressing/Incision Instructions:: Change or remove dressing in one day. May protect with a gauze bandaid. Allergies/Adverse Reactions: Allergies No Known Allergies Allergy (Verified 05/26/20 22:43) Medications to take at Discharge Finasteride 5 mg PO DAILY 07/30/19 Pantoprazole Sodium [Protonix] 40 mg PO DAILY #30 tab 09/09/19 Tamsulosin HCl [Flomax] 0.4 mg PO BID #60 cap 09/09/19 Amlodipine [Norvasc] 5 mg PO DAILY 05/26/20 Aspirin [Aspirin, Baby] 81 mg PO DAILY@0800 05/26/20 Atorvastatin Calcium 80 mg PO QHS 05/26/20 Hydralazine HCl 50 mg PO TID 05/26/20 Torsemide 100 mg PO DAILY 05/26/20 levETIRAcetam tablet [Keppra tablet] 500 mg PO BID 05/26/20 Carvedilol [Coreg] 12.5 mg PO QHS 05/27/20 Acetaminophen [Tylenol Tablet] 650 mg PO Q6H PRN PRN tab 06/02/20 Senna/Docusate Sodium [Senokot-S] 2 tab PO BID PRN PRN tab 06/02/20 Guaifenesin/Codeine [Robitussin AC] 10 ml PO Q4H PRN 06/07/20 Insulin Glargine,Hum.rec.anlog [Basaglar Kwikpen U-100] 5 unit SQ BREAKFAST 06/07/20 Insulin Lispro [Humalog KwikPen] See Protocol SC ACHS 06/07/20 Magnesium Hydroxide [Milk Of Magnesia] 30 ml PO DAILY PRN PRN 06/07/20 Fenofibrate,Micronized [Fenofibrate] 43 mg PO BREAKFAST 06/08/20 Fenofibrate,Micronized [Fenofibrate] 67 mg PO QHS 06/08/20 Orders to be completed after discharge: COVCESAR 19, RACHEL SENDOUT Time Frame: 06/02/20, Facility: [facility], Location: Laboratory Primary Care Physician: Paul Martinez Chi, MD [Primary Care Provider] - Test Results: Test results from this visit will be discussed in further detail at your follow-up appointment, if applicable. Please Follow Up With: Valentino Kamara MD - [phone] When: Call to make an appointment for suture removal and follow up in 10 days.
[2020-06-08] MEDS: Bupivacaine Mpf 0.5% 30 ML VIAL (11:00)
[2020-06-08] MEDS: Heparin Injection (Vial) 5,000 UNIT/ML VIAL 5000 UNIT (11:00)
--- NOTE | 2020-06-08 11:32 | PCM.OPRPT ---
Problem List (1) End-stage renal disease on hemodialysis Status: Chronic Report of Operation Date of Procedure: 06/08/20 Pre-Operative Diagnosis: Stage V chronic renal insufficiency Post-Operative Diagnosis: Same Surgery/Procedure Performed:: Left upper extremity stage I brachial to basilic arteriovenous fistula creation Description of Surgical Findings:: Timeout and informed consent was obtained. 69-year-old gentleman was taken to the operating room placed on the table underwent monitored anesthesia care. The left upper extremity was sterilely prepped and draped. Clean procedure no antibiotics required. 1% lidocaine mixed 50-50 with 0.5% Marcaine was used as a local anesthetic a total of 5 cc used. Ultrasound was used to map the course of the left upper arm basilic vein at the antecubital space. Local was instilled. A small curvilinear longitudinal incision was created sharp blunt dissection was used to identify the basilic vein. It was dissected free. Side branches secured with hemoclips. Sharp and blunt dissection was used to identify the brachial artery. The patient then received 6000 units of heparin is intravenous anticoagulation. Peripheral vascular clamps were placed on the brachial artery and 11 blade was used to make an arteriotomy which was extended with Tuttle scissors. The vein was ligated distally with a Hemoclip. It was spatulated and a end-to-side anastomosis created with running 7-0 Prolene. Clamps were released there is good flow. Doppler demonstrated good flow in the fistula. The hand was still viable with a palpable 2+ radial pulse. The wound was closed with a deep layer of interrupted 3-0 Vicryl subdermal stitches and then a running septic or 4-0 Monocryl. Steri-Strips Telfa tape dressings applied. Sponge and instrument and needle counts were reported to the surgeon to be correct. Specimens none. Drains none. Blood loss minimal. Valentino Kamara M.D., F.A.C.S. Type of Anesthesia:: Local MAC Anesthesiologist: Memo Batista
== END 2020-06-08 14:05 | disposition home or self-care (01) ==
LOC: SDC 09:01 → AC 09:04
PROVIDERS: PCP Family Medicine Geriatric Medicine; Referring Provider Surgery; Visit Provider Surgery
PROC: (CPT 36819; principal; 2020-06-08 10:45)
DX: E11.22 Type 2 diabetes mellitus with diabetic chronic kidney disease (principal); I12.0 Hypertensive chronic kidney disease with stage 5 chronic kidney disease or end stage renal disease; N18.5 Chronic kidney disease, stage 5; I25.2 Old myocardial infarction; D64.9 Anemia, unspecified; E55.9 Vitamin D deficiency, unspecified; K21.9 Gastro-esophageal reflux disease without esophagitis; F41.9 Anxiety disorder, unspecified; I25.10 Atherosclerotic heart disease of native coronary artery without angina pectoris; E78.5 Hyperlipidemia, unspecified; N40.0 Benign prostatic hyperplasia without lower urinary tract symptoms; E78.00 Pure hypercholesterolemia, unspecified; E11.51 Type 2 diabetes mellitus with diabetic peripheral angiopathy without gangrene; Z86.73 Personal history of transient ischemic attack (TIA), and cerebral infarction without residual deficits; Z87.440 Personal history of urinary (tract) infections; Z87.448 Personal history of other diseases of urinary system; Z95.1 Presence of aortocoronary bypass graft; Z79.4 Long term (current) use of insulin; Z79.02 Long term (current) use of antithrombotics/antiplatelets; Z79.82 Long term (current) use of aspirin; Z79.899 Other long term (current) drug therapy
CPT/HCPCS: 01844; 36819; 82962; J7030; J2405

== ENCOUNTER 2020-06-15 14:29 | Emergency (ER) | payer MEDICARE, SELFPAY ==
[2020-06-08 09:54] VITALS: BMI 20.9
[2020-06-15 14:30] VITALS: BP 121/57; PULSE 66; RESP 19; TEMP 36.6; O2SAT 96; BMI 22.8
--- NOTE | 2020-06-15 15:02 | EKG12_ITS ---
Test Reason : WEAKNESS Blood Pressure : / mmHG Vent. Rate : 066 BPM Atrial Rate : 066 BPM P-R Int : 420 ms QRS Dur : 134 ms QT Int : 442 ms P-R-T Axes : 001 -76 013 degrees QTc Int : 463 ms Sinus rhythm with 1st degree A-V block Left axis deviation Right bundle branch block Inferior infarct , age undetermined Abnormal ECG Confirmed by JOHN SARMIENTO, LUIS ([id number]), editor greeting card SELVIN MATUTE ([id number]) on 06/19/2020 2:29:27 PM Referred By: ZEE Confirmed By:LUIS LOPEZ MD
[2020-06-15 15:12] LABS: Absolute Lymphocyte Count 2.06 X10^3/uL (0.83-4.51); Absolute Neutrophil Count 5.7 X10^3/uL (2.0-7.7); Basophil# 0.04 X10^3/uL; Basophil% 0.5 % (0-1); Eosinophil# 0.23 X10^3/uL; Eosinophils% 2.6 % (0-5); Hematocrit 31.7 % (40-54); Hemoglobin 10.1 g/dL (13.0-16.5); Lymphocyte # 2.06 X10^3/ul (4.0); Lymphocyte % 23.2 % (19-41); Mean Corp Hgb Conc 31.9 g/dL (32-36); Mean Corpuscular Volume 91.1 fL (80-94); Mean Platelet Vol. 9.5 fl (6.2-12.0); Monocyte# 0.79 X10^3/uL; Monocyte% 8.9 % (0-10); NRBC Flagged by Analyzer 0 % (0-5); Neutrophil # 5.71 X10^3/uL (2.7-7.7); Neutrophil % 64.3 % (47-70); Platelet Count 303 K/mm3 (150-450); RBC Distribution Width CV 13.6 % (11.6-14.6); Red Blood Count 3.48 M/mm3 (4.6-6.2); White Blood Count 8.9 K/mm3 (4.4-11.0)
--- NOTE | 2020-06-15 15:15 | RAD_ITS ---
STUDY: X-RAY CHEST REASON FOR EXAM: Male, 69 years old. weakness and low BP per [facility] TECHNIQUE: Single AP portable view of the chest. COMPARISON: 05/26/2020 FINDINGS: Tunneled right internal jugular dialysis catheter which is unchanged. Status post median sternotomy. The lungs are clear and expanded. There is no demonstrated pleural abnormality. Normal size heart. Normal mediastinum and job. Normal visualized pulmonary arteries. Normal visualized aortic arch and descending thoracic aorta. Normal visualized thoracic spine. Normal visualized ribs, clavicles, and shoulders. There is no demonstrated abnormality of the visualized soft tissue structures of the upper abdomen. RAD/Chest 1 View (Portable) IMPRESSION: No active disease. Electronically Signed: Marc Frias MD at 15:34 EST Tel , Service support ,
--- NOTE | 2020-06-15 15:17 | ED.VIS.GEN ---
History of Present Illness Chief Complaint: Weakness Informant: Patient Narrative: Patient is a 69-year-old male with a past medical history of end-stage renal disease on dialysis, CAD, diabetes, hypertension, hyperlipidemia, depression who presents to the emergency department for feeling lifeless. He states that he just does not feel well. This has been going on yesterday and today. He has on Friday, Friday, Friday dialysis schedule has not missed any sessions. He has felt this way before in the past when getting dialysis. He has had a cough that has been nonproductive lately. Denies any fevers or chills. He has felt nauseous and vomited one time yesterday. No change in bowel habits. He does still make urine and denies any urinary symptoms. No rashes. No headache or vision changes. No known sick contacts. States his last coronavirus was a few weeks ago which was negative. He has not tried taking thing for this. No known aggravating or relieving factors. Past Medical History - Allergies and Home Meds Allergies/Adverse Reactions: Allergies No Known Allergies Allergy (Verified 06/15/20 08:54) Primary Care Physician: Paul Martinez Chi, MD [Primary Care Provider] - 2 Days Prior records reviewed: Yes Surgical History: coronary bypass surgery, - - Benign soft tissue tumor resection, CABG x 3, PCI x 1, BL tunnel surgery, bilateral lower extremity venous intervention unclear type. Smoking Status: Former smoker - Family History Maternal Family History: Family History (Last Reviewed 05/26/20 @ 18:[address] Kathia Barney MD) Brother Diabetes Mother Hypertension Daughter Diabetes Family History: Reports: - - Patient notes that his mother was healthy and denies any history of heart disease, diabetes or cancer, passed at age 93. Paternal Family History: Family History (Last Reviewed 05/26/20 @ 18:[address] Kathia Barney MD) Brother Diabetes Mother Hypertension Daughter Diabetes Family History: Reports: - - Patient notes that his father was healthy with no history of heart disease, diabetes or cancer, passed at age 89 secondary to brain aneurysm rupture. Review of Systems All systems negative except as indicated General: Reports: Malaise. Denies: Chills, Fever, Sweats Eyes: Denies: Visual changes - bilaterally, Diplopia ENT: Denies: Rhinorrhea, Sore throat Cardiovascular: Denies: Chest pain, Palpitations Respiratory: Reports: Cough. Denies: Dyspnea, Dyspnea on exertion Gastrointestinal: Denies: Abdominal pain, Nausea, Vomiting, Diarrhea Genitourinary: Denies: Dysuria, Hematuria, Frequency Musculoskeletal: Denies: Back pain, Extremity Pain Skin: Denies: Rash, Wounds Neurological: Denies: Headache, Weakness, Numbness Physical Exam Vital Signs/Narrative: Vital Signs Temp Pulse Resp BP Pulse Ox 06/15/20 14:30 97.8 F 66 19 H 121/57 H 96 Inital Vital Signs reviewed: Yes General: Well nourished, Well developed, No Acute Distress Head: Normocephalic, Atraumatic Eyes: Perrl, EOMI ENT: Moist mucous membranes, No rhinorrhea Neck: Supple, Nontender Cardiovascular: Regular rate, Regular rhythm, No murmurs, Murmur Respiratory: No distress, CTA bilaterally, Chest nontender Abdomen: Soft, Nontender, Nondistended, Normal bowel sounds Back: Nontender, Normal Inspection Extremities: Nontender, No edema Skin: Normal color, No rash Neurological: Alert, Oriented x3, Normal Strength, Normal Sensation Psychological: Normal affect, Normal Mood Diagnostic/Tx/Re-eval - EKG Initial EKG Interpretation: - - Rate of 66 bpm. TX interval of 420 with a first-degree AV block. Has a QRS of 134 with right bundle branch block. Left axis deviation. No significant ST elevations or depressions appreciated. - Medical Decision Making Patient presents to the emergency department for generally not feeling well. He has had a cough. The report was he had a low blood pressure at the assisted. Upon arrival to the emergency department he does not appear in any acute distress. Will check basic lab work, EKG, chest x-ray. Patient's work-up did not reveal any significant acute abnormality. His hemoglobin is at baseline. The rest of the lab work did not show to explain his symptoms. No evidence of pneumonia on x-ray. Patient has been stable throughout ED stay. He is comfortable going back to the assisted at this time. His symptoms could be related to his dialysis as this is when his symptoms started. He is to follow-up with his PCP. Warning signs and symptoms for which to return to the ED are reviewed with him. He understands and is agreeable with this plan. Patient discharged home in stable condition. All questions answered. ED Disposition - Plan for ED Patient: Disposition: Home or Assisted Living Diagnosis: Generalized weakness Instructions: ED Weakness [facility] Referrals: Paul Martinez Chi, MD [Primary Care Provider] - 2 Days
[2020-06-15 15:37] LABS: Anion Gap 7 (5-15); BUN 39 mg/dL (7-18); BUN/Creat Ratio 5.3 RATIO (10-20); Calcium,Total 8.5 mg/dL (8.5-10.1); Chloride 100 mmol/L (98-107); Creatinine, Serum 7.38 mg/dL (0.70-1.30); EST Glomerular Filtration Rate 8 mL/min (>60); Est Glom Filt Rate - Afr Amer 9 mL/min (>60); Estimated Creatinine Clearance 8.86 ml/min; Glucose 238 mg/dL (74-106); Magnesium 2.2 mg/dL (1.6-2.6); Potassium 4.9 mmol/L (3.5-5.1); Sodium Level 138 mmol/L (136-145)
[2020-06-15 16:43] VITALS: BP 109/56; PULSE 66; RESP 17; TEMP 36.4; O2SAT 96
== END 2020-06-15 17:44 | disposition home or self-care (01) ==
PROVIDERS: Emergency Provider Emergency Medicine; PCP Family Medicine Geriatric Medicine
DX: R53.1 Weakness (principal); R05 Cough; I44.0 Atrioventricular block, first degree; I45.10 Unspecified right bundle-branch block; I12.0 Hypertensive chronic kidney disease with stage 5 chronic kidney disease or end stage renal disease; E11.22 Type 2 diabetes mellitus with diabetic chronic kidney disease; N18.6 End stage renal disease; Z99.2 Dependence on renal dialysis; I25.10 Atherosclerotic heart disease of native coronary artery without angina pectoris; E78.5 Hyperlipidemia, unspecified; F32.9 Major depressive disorder, single episode, unspecified; Z95.1 Presence of aortocoronary bypass graft; Z79.82 Long term (current) use of aspirin; Z79.899 Other long term (current) drug therapy; Z87.891 Personal history of nicotine dependence
CPT/HCPCS: 71045; 80048; 83735; 84484; 85025; 93005; 99285; A4216

== ENCOUNTER 2020-07-18 06:16 | Day surgery (SDC) | payer MEDICARE, SELFPAY ==
[2020-06-29 09:15] VITALS: BMI 20.9
[2020-07-18] VITALS (9 sets, daily range): BP systolic 93–117; BP diastolic 54–60; PULSE 55–62; RESP 16–18; TEMP 36.3–36.9; O2SAT 94–99; BMI 22.1
--- NOTE | 2020-07-18 06:36 | PCM.HP.BLA ---
Problem List (1) End-stage renal disease on hemodialysis Status: Chronic (2) Problem with dialysis access Status: Acute Qualifiers: Encounter type: initial encounter Qualified Code(s): T82.898A - Other specified complication of vascular prosthetic devices, implants and grafts, initial encounter History and Physical Date of Admission: 07/18/20 Intake Visit Reasons: 3 WEEK F/U FISTULA PLACEMENT 06/08 Chief Complaint: Recheck fisutla/ schedule Stage II Home Performance Consultant Required: No Is patient in pain?: No Allergies No Known Allergies Allergy (Verified 06/29/20 09:08) Medications Finasteride 5 mg PO DAILY 07/30/19 [History Confirmed 06/29/20] Pantoprazole Sodium [Protonix] 40 mg PO DAILY #30 tab 09/09/19 [Rx Confirmed 06/29/20] Tamsulosin HCl [Flomax] 0.4 mg PO BID #60 cap 09/09/19 [Rx Confirmed 06/29/20] Amlodipine [Norvasc] 5 mg PO DAILY 05/26/20 [History Confirmed 06/29/20] Aspirin [Aspirin, Baby] 81 mg PO DAILY@0800 05/26/20 [History Confirmed 06/29/20] Atorvastatin Calcium 80 mg PO QHS 05/26/20 [History Confirmed 06/29/20] Hydralazine HCl 50 mg PO TID 05/26/20 [History Confirmed 06/29/20] Torsemide 100 mg PO DAILY 05/26/20 [History Confirmed 06/29/20] levETIRAcetam tablet [Keppra tablet] 500 mg PO BID 05/26/20 [History Confirmed 06/29/20] Carvedilol [Coreg] 12.5 mg PO BID 05/27/20 [History Confirmed 06/29/20] Senna/Docusate Sodium [Senokot-S] 2 tab PO BID PRN PRN tab 06/02/20 [Rx Confirmed 06/29/20] Insulin Glargine,Hum.rec.anlog [Basaglar Kwikpen U-100] 5 unit SQ BREAKFAST 06/07/20 [History Confirmed 06/29/20] Insulin Lispro [Humalog KwikPen] See Protocol SC ACHS 06/07/20 [History Confirmed 06/29/20] Magnesium Hydroxide [Milk Of Magnesia] 30 ml PO DAILY PRN PRN 06/07/20 [History Confirmed 06/29/20] Fenofibrate,Micronized [Fenofibrate] 67 mg PO QHS 06/08/20 [History Confirmed 06/29/20] Acetaminophen 650 mg PO Q4H PRN PRN 06/15/20 [History Confirmed 06/29/20] Bisacodyl 10 mg RC DAILY PRN PRN 06/15/20 [History Confirmed 06/29/20] Dextrose [Glucose Gel] 1 gm PO PRN PRN 06/15/20 [History Confirmed 06/29/20] Glucagon 1 mg IM X1 06/15/20 [History Confirmed 06/29/20] Guaifenesin [Robitussin] 10 ml PO Q4H PRN PRN 06/15/20 [History Confirmed 06/29/20] Na Phos,M-B/Na Phos,Di-Ba [Fleet Enema] 1 bottle RECTAL DAILY PRN PRN 06/15/20 [History Confirmed 06/29/20] PFSH Medical History Depression (Chronic) BPH with obstruction/lower urinary tract symptoms (Chronic) Left ventricular hypertrophy (Chronic) Diverticulosis (Chronic) Tobacco dependence in remission (Chronic) HTN (hypertension) (Chronic) History of stroke (Chronic) Peripheral vascular disease (Chronic) Diabetes mellitus, type 2 (Chronic) GERD (gastroesophageal reflux disease) (Chronic) Hyperlipidemia (Chronic) CAD (coronary artery disease) (Chronic) Fatigue (Acute) Heart disease (Acute) Closed intraventricular hemorrhage (Inactive) Intracerebral hemorrhage (Inactive) Subdural hemorrhage (Inactive) Surgical History hx of APLL (Chronic) History of angioplasty of peripheral vessel (Chronic ~2017) Status post coronary artery bypass graft (Chronic) Family History Brother Diabetes Mother Hypertension Daughter Diabetes Social History (Updated 06/29/20 @ 15:11 by Merary WARD, PAJanieC) Smoking Status: Former smoker alcohol intake: never substance use type: does not use caffeine: No what type of physical activity do you participate in: none frequency: does not exercise HPI HPI HPI: MODESTO DOMINGUEZ, is a 69 M who presents to the office today for HPI HPI HPI: MODESTO DOMINGUEZ, is a 69 M I am following for chronic renal failure. Dr. Kamara performed a stage I left upper extremity brachial to basilic AV fistula creation on 06/08/20. Patient tolerated the procedure well. Patient denies pain/discomfort today. He denies numbness or tingling of hand or fingers. He denies bleeding. He is currently on dialysis M, W, and F via chest catheters. Patient notes he will be discharged from the snf to home next week. Patient is maintained on aspirin. ROS General General: Yes weight change and fatigue; no appetite, colon cancer, breast cancer or weakness HEENT HEENT: Yes eye surgery; no difficulty swallowing, eye injury, swollen glands or hoarseness Endo Endocrine: Yes diabetes mellitus; no thyroid disease, thyroid cancer, Hair loss, heat intolerance or cold intolerance Skin Skin: No rash or changing moles Musc Musculoskeletal: No back problems, arthritis, rheumatoid arthritis, gout or joint pain Cardio Cardiovascular: Yes heart disease, high blood pressure, heart attack and heart stent; no murmur, pacemaker, atrial fibrillation, palpitations, shortness of breat with exertion or chest pain Psych Psychiatric: No depression, anxiety or hearing voices Resp Respiratory: No shortness of breath, No sleep apnea, No cough, No COPD, No asthma, No emphysema, No wheezing Gastro Gastrointestinal: No abdominal pain, No nausea or vomiting, No diarrhea, No constipation, No blood in stool, No acid reflux, No hemorrhoids, No ulcers, No gallbladder problem, No black,tarry stools Edis Hematologic: No blood thinners, No blood disorders, No bleeding, No anemia, No blood clots Neuro Neurologic: No system reviewed and no additional complaints, except as docu, No as per HPI, No abnormal walking, No abnormal hearing, No abnormal movements, No abnormal speech, No behavioral changes, No burning sensations, No confusion, No seizure-like activity, No unsteadiness, No dizziness, No localized weakness, No frequent falls, No headache(s), No lack of coordination, No loss of vision, No memory loss, No numbness, No other visual disturbances, No radiating pain, No restless legs, No sensory deficit, No fainting, No tingling, No tremor(s), No weakness, No other Exam Const General: cooperative, healthy appearing, comfortable, no acute distress [facility] Head: normal to inspection Eyes General: appearance normal, both eyes and all related structures Neck Neck: normal visual inspection Resp Effort & Inspection: normal respiratory effort Auscultation: clear to auscultation bilaterally Cardio Rate: regular rate Rhythm: regular rhythm Heart Sounds: no murmurs GI Inspection: normal to inspection Palpation: soft Auscultation: normal bowel sounds Skin General: no rashes or lesions noted Neuro General: no focal motor deficits, CN's II-XI intact bilaterally Extrem Other: left upper extremity AV fistula- good pulse, bruit and thrill. Incision c/d/i. Psych Appearance: grossly normal Affect: normal affect Assessment & Plan Problems 1. End-stage renal disease on hemodialysis N18.6; Z99.[address] Kamara will plan to perform a stage II transposition of the left upper extremity fistula creation. Procedure details, risks and benefits have been reviewed. Patient has had the opportunity to ask and have questions answered. Patient verbally understands and agrees with the plan. Coding Level of Care Code Global Post Op Diagnoses End-stage renal disease on hemodialysis N18.6; Z99.2 06/29/20 1511 <Electronically signed by Merary WARD PA-C> Date Merary WARD PA-C I have re-examined the patient. There are no clinical changes since date of exam. Procedure Criteria Procedure Type: Elective COVID Risk Discussion: The surgeon/proceduralist and patient have discussed in detail the risk of exposure to and/or potential harm posed by the COVID-19 virus with having a surgery/procedure at this time versus the risk of delaying the surgery/procedure. It is not possible to know either the risk of delaying the surgery or procedure or chance of getting an infection with perfect accuracy, but a joint decision was made between the patient and the surgeon/proceduralist to proceed at this time with the scheduled surgery/procedure as indicated on the consent form.
--- NOTE | 2020-07-18 06:37 | DCINST_ITS ---
Discharge Diet: Renal Diet Discharge Activity: May Not Drive - for 2-3 days or while taking narcotic pain medications. Lifting Restrictions: 5 pounds Keep extremity elevated above heart level: - - Keep arm elevated above the heart level for 3 days. Additional Activity Instructions:: Exercise hand vigorously with a stress ball. Call your doctor if your incision/area has: Continuous Slow Oozing, Sudden Increased Bleeding - apply pressure and call your doctor., Increased Pain/ Swelling, Increased Redness, Foul Smelling Discharge Call your doctor if you observe: Fever of 101 or Higher Suture Line Care: Avoid Pulling/Pushing, Avoid Pinching/Bending Cleanse incision/area with: Keep Dressing Clean & Dry Additional Dressing/Incision Instructions:: Change or remove dressing in one day. May protect with a gauze bandaid. Allergies/Adverse Reactions: Allergies No Known Allergies Allergy (Verified 07/12/20 11:42) Medications to take at Discharge Finasteride 5 mg PO DAILY 07/30/19 Pantoprazole Sodium [Protonix] 40 mg PO DAILY #30 tab 09/09/19 Tamsulosin HCl [Flomax] 0.4 mg PO BID #60 cap 09/09/19 Amlodipine [Norvasc] 5 mg PO DAILY 05/26/20 Aspirin [Aspirin, Baby] 81 mg PO DAILY@0800 05/26/20 Atorvastatin Calcium 80 mg PO QHS 05/26/20 Hydralazine HCl 25 mg PO TID 05/26/20 Torsemide 100 mg PO DAILY 05/26/20 levETIRAcetam tablet [Keppra tablet] 500 mg PO BID 05/26/20 Carvedilol [Coreg] 12.5 mg PO BID 05/27/20 Senna/Docusate Sodium [Senokot-S] 2 tab PO BID PRN PRN tab 06/02/20 Insulin Glargine,Hum.rec.anlog [Basaglar Kwikpen U-100] 5 unit SQ BREAKFAST 06/07/20 Insulin Lispro [Humalog KwikPen] See Protocol SC ACHS 06/07/20 Magnesium Hydroxide [Milk Of Magnesia] 30 ml PO DAILY PRN PRN 06/07/20 Fenofibrate,Micronized [Fenofibrate] 67 mg PO QHS 06/08/20 Acetaminophen 650 mg PO Q4H PRN PRN 06/15/20 Bisacodyl 10 mg RC DAILY PRN PRN 06/15/20 Dextrose [Glucose Gel] 1 gm PO PRN PRN 06/15/20 Glucagon 1 mg IM X1 06/15/20 Guaifenesin [Robitussin] 10 ml PO Q4H PRN PRN 06/15/20 Na Phos,M-B/Na Phos,Di-Ba [Fleet Enema] 1 bottle RECTAL DAILY PRN PRN 06/15/20 Calcium Acetate [Phoslo Gel Cap] 667 mg PO TIDCM 07/12/20 Ondansetron HCl [Zofran] 4 mg PO PRN PRN 07/12/20 Primary Care Physician: Paul Martinez Chi, MD [Primary Care Provider] - Test Results: Test results from this visit will be discussed in further detail at your follow- up appointment, if applicable. Please Follow Up With: Valentino Kamara MD - [phone] When: Call to make an appointment for suture removal and follow up in 10 days
[2020-07-18] MEDS: Lactated Ringers 1,000 ML 100 ML IV (07:09)
[2020-07-18 07:21] LABS: Bedside Glucose 115 mg/dL (70-110)
[2020-07-18] MEDS: Cefazolin 2 GM in 0.9% Normal Saline 100 ML IV (08:00)
[2020-07-18] MEDS: Lidocaine 0.5% (50 ml) 50 ML Vial (08:16)
[2020-07-18] MEDS: Heparin Injection (Vial) 5,000 UNIT/ML VIAL 5000 UNIT (08:16)
[2020-07-18] MEDS: Lidocaine 1% (30 ml sdv) 30 ML Vial (08:16)
[2020-07-18] MEDS: Bupivacaine Mpf 0.5% 30 ML VIAL (08:16)
--- NOTE | 2020-07-18 10:05 | OP.PCM_ITS ---
Problem List (1) End-stage renal disease on hemodialysis Status: Chronic (2) Problem with dialysis access Status: Acute Qualifiers: Encounter type: initial encounter Qualified Code(s): T82.898A - Other specified complication of vascular prosthetic devices, implants and grafts, initial encounter Report of Operation Date of Procedure: 07/18/20 Pre-Operative Diagnosis: Need for arteriovenous hemodialysis access Post-Operative Diagnosis: Same Surgery/Procedure Performed:: Stage II transposition left upper arm basilic vein to brachial artery arteriovenous fistula creation Description of Surgical Findings:: Timeout and informed consent was obtained. 69-year-old gentleman was taken to [facility] operating place upon the table underwent monitored anesthesia care. 1% lidocaine mixed 50-50 with 0.5% Marcaine was used as a local anesthetic. 36 cc was used. 1/2% lidocaine was additionally used only 8 cc. Ancef 2 g were given intravenously preoperatively. The left upper arm was sterilely prepped and draped. Local was instilled ultrasound mapping had been performed. Local instilled around the medial aspect of the left upper arm. Longitudinal incision was created. Sharp blunt dissection was used to identify the canal partially matured basilic vein. It was dissected free sidebranches secured with 4-0 Vicryl ligatures and hemoclips were indicated. Dissection was performed up to the shoulder. Then the vein was measured and a curvilinear spot more on the dorsal aspect of the arm was shaped. Sharp and blunt dissection used to identify the brachial artery and circumferential control was obtained. The patient received 6000 units of heparin. After a curved tunneler was placed from the brachial artery site to the shoulder site. The vein was ligated distally with 4-0 Vicryl and hemoclips. The vein was then placed through the tunnel and had a been marked to try to assure no curvature. It was spatulated length. Peripheral vascular clamps were placed on the brachial artery and 11 blade was used to make an arteriotomy which was extended with Tuttle scissors. A end-to-s lee venous to arterial anastomosis was created with running 7-0 Prolene. Good positional lie was achieved there was a good pulse thrill and bruit. The hand was inspected it appeared to have adequate capillary refill although somewhat diminished. Doppler signal was still present at the radial artery site. The anastomosis was inspected it did not appear to be overly generous I did I elected not to place a restricting cuff.. The patient received 20 mg of protamine as reversal. The wound was closed with layers of interrupted 3-0 Vicryl subcutaneous and subdermal sutures. The skin edges were approximated a running septic or 4-0 Monocryl. Steri-Strips Telfa soft roll Sudhakar wrap applied. Sponge and instrument and needle counts were reported to the surgeon to be correct. Blood loss was actually quite minimal. He tolerated the procedure well was taken to the recovery area in satisfactory vision without apparent complication. Specimens none. Drains none. Blood loss minimal. Valentino Kamara M.D., F.A.C.S. Type of Anesthesia:: Local MAC Anesthesiologist: Dylan Alcantar
== END 2020-07-18 13:25 | disposition skilled nursing facility (03) ==
LOC: SDC 06:17 → AC 06:18
PROVIDERS: PCP Family Medicine Geriatric Medicine; Referring Provider Surgery; Visit Provider Surgery
PROC: (CPT 36819; principal; 2020-07-18 07:45)
DX: T82.898A Other specified complication of vascular prosthetic devices, implants and grafts, initial encounter (principal); E11.22 Type 2 diabetes mellitus with diabetic chronic kidney disease; I13.11 Hypertensive heart and chronic kidney disease without heart failure, with stage 5 chronic kidney disease, or end stage renal disease; N18.6 End stage renal disease; Z99.2 Dependence on renal dialysis; E11.51 Type 2 diabetes mellitus with diabetic peripheral angiopathy without gangrene; F32.9 Major depressive disorder, single episode, unspecified; I25.2 Old myocardial infarction; K21.9 Gastro-esophageal reflux disease without esophagitis; N40.0 Benign prostatic hyperplasia without lower urinary tract symptoms; E78.00 Pure hypercholesterolemia, unspecified; Z86.2 Personal history of diseases of the blood and blood-forming organs and certain disorders involving the immune mechanism; Z86.73 Personal history of transient ischemic attack (TIA), and cerebral infarction without residual deficits; Z95.1 Presence of aortocoronary bypass graft; Z79.4 Long term (current) use of insulin; Z79.82 Long term (current) use of aspirin; Z79.899 Other long term (current) drug therapy; Z87.891 Personal history of nicotine dependence
CPT/HCPCS: 36819; 82962; J7120

== ENCOUNTER 2020-07-24 13:55 | Inpatient (IN) | payer MEDICARE, SELFPAY ==
[2020-07-18 06:47] VITALS: BMI 22.1
[2020-07-24] VITALS (10 sets, daily range): BP systolic 102–127; BP diastolic 56–81; PULSE 68–80; RESP 14–20; TEMP 36.3–37.2; O2SAT 95–97; BMI 23.1; BMI 21.5
--- NOTE | 2020-07-24 14:15 | ED.VIS.GEN ---
History of Present Illness Chief Complaint: Weakness Informant: Patient Narrative: 69-year-old male with history of CAD, end-stage renal disease on dialysis, PVD, hypertension, diabetes presenting with generalized weakness, cough, reported fever from dialysis center of 101. Patient is slightly confused and slow to answer he states that he thinks it has been about 3 days that he has been sick. He also states that he was tested last Friday which would be 6 days ago for the timeline is unclear. He states he has symptoms of a cough, shortness of breath. He does not report body aches or loss of taste or smell. He he denies chest pain. He reportedly only got 75% of his dialysis today due to his symptoms. Past Medical History - Allergies and Home Meds Allergies/Adverse Reactions: Allergies No Known Allergies Allergy (Verified 07/24/20 14:06) Prior records reviewed: Yes Past Medical History: - - Diabetes, hypertension, hyperlipidemia, end-stage renal disease on dialysis, peripheral vascular disease, CAD Surgical History: coronary bypass surgery, - - Benign soft tissue tumor resection, CABG x 3, PCI x 1, BL tunnel surgery, bilateral lower extremity venous intervention unclear type. Smoking Status: Former smoker Alcohol: None Drugs: None - Family History Maternal Family History: Family History (Last Reviewed 06/29/20 @ 09:18 by Leola Bhagat) Brother Diabetes Mother Hypertension Daughter Diabetes Family History: Reports: - - Patient notes that his mother was healthy and denies any history of heart disease, diabetes or cancer, passed at age 93. Paternal Family History: Family History (Last Reviewed 06/29/20 @ 09:18 by Leola Bhagat) Brother Diabetes Mother Hypertension Daughter Diabetes Family History: Reports: - - Patient notes that his father was healthy with no history of heart disease, diabetes or cancer, passed at age 89 secondary to brain aneurysm rupture. Review of Systems General: Reports: Fever, Malaise. Denies: Chills, Subjective Eyes: Denies: Visual changes - bilaterally, Diplopia ENT: Denies: Rhinorrhea, Sore throat Cardiovascular: Denies: Chest pain, Palpitations Respiratory: Reports: Dyspnea, Cough Gastrointestinal: Denies: Abdominal pain, Nausea, Vomiting, Diarrhea, Melena, Hematochezia Genitourinary: Denies: Dysuria, Hematuria, Frequency Musculoskeletal: Denies: Myalgias, Arthralgias, Neck pain, Back pain, Swelling, Extremity Pain, -, - Skin: Denies: Rash, Wounds Neurological: Denies: Headache, Weakness, Numbness Physical Exam Vital Signs/Narrative: Vital Signs Temp Pulse Resp BP Pulse Ox 07/24/20 14:03 97.4 F L 80 18 105/76 97 07/24/20 14:01 98.7 F 80 18 105/76 96 Inital Vital Signs reviewed: Yes General: Unkempt, No Acute Distress Head: Normocephalic, Atraumatic Eyes: Perrl, EOMI ENT: Dry mucous membranes. Negative for: Nasal congestion Respiratory: No distress, CTA bilaterally Abdomen: Soft, Nontender Skin: Pallor. Negative for: No rash, Cyanosis Neurological: Alert, - - Patient is confused he does not correctly name the place where he lives, he is slow to answer. Psychological: Tearful, - - Flat affect. Negative for: Agitated Diagnostic/Tx/Re-eval Clinical Impression(s) from Imaging Studies Chest X-Ray 07/24/20 14:16 IMPRESSION: Hyperinflation. The lungs are clear. Electronically Signed: Attila Destiney, at 15:43 EST , Service support , Laboratory Data 07/24/20 07/24/20 07/24/20 14:20 15:00 15:00 WBC 8.2 RBC 3.56 L Hgb 10.7 L Hct 33.2 L MCV 93.3 MCH 30.1 MCHC 32.2 RDW Std Deviation 51.9 H RDW Coeff of Arturo 15.2 H Plt Count 230 MPV 9.6 Immature Gran % (Auto) 0.500 Neut % (Auto) 71.8 H Lymph % (Auto) 12.0 L [place] % (Auto) 13.0 H Eos % (Auto) 2.2 Baso % (Auto) 0.5 Absolute Neuts (auto) 5.9 Absolute Lymphs (auto) 0.98 Nucleated RBC % 0 PT INR APTT Sodium 139 Potassium 3.7 Chloride 99 Carbon Dioxide 34.0 H Anion Gap 6 BUN 37 H Creatinine 6.26 H Estim Creat Clear Calc 10.47 Est GFR (MDRD) Af Amer 11 L Est GFR (MDRD) Non-Af 9 L BUN/Creatinine Ratio 5.9 L Glucose 91 Calcium 8.9 Total Bilirubin 0.40 AST 62 H ALT 17 Alkaline Phosphatase 57 Ammonia Troponin I 1.880 H* Total Protein 7.2 Albumin 3.3 Globulin 3.9 Albumin/Globulin Ratio 0.8 L Procalcitonin 0.46 H Acetone Level COVID-19 (RACHEL) 07/24/20 07/24/20 07/24/20 15:00 15:00 15:00 WBC RBC Hgb Hct MCV MCH MCHC RDW Std Deviation RDW Coeff of Arturo Plt Count MPV Immature Gran % (Auto) Neut % (Auto) Lymph % (Auto) [place] % (Auto) Eos % (Auto) Baso % (Auto) Absolute Neuts (auto) Absolute Lymphs (auto) Nucleated RBC % PT INR APTT 36.0 Sodium Potassium Chloride Carbon Dioxide Anion Gap BUN Creatinine Estim Creat Clear Calc Est GFR (MDRD) Af Amer Est GFR (MDRD) Non-Af BUN/Creatinine Ratio Glucose Calcium Total Bilirubin AST ALT Alkaline Phosphatase Ammonia Troponin I Total Protein Albumin Globulin Albumin/Globulin Ratio Procalcitonin Acetone Level NEGATIVE COVID-19 (RACHEL) Positive 07/24/20 07/24/20 07/24/20 15:00 16:55 17:45 WBC RBC Hgb Hct MCV MCH MCHC RDW Std Deviation RDW Coeff of Arturo Plt Count MPV Immature Gran % (Auto) Neut % (Auto) Lymph % (Auto) [place] % (Auto) Eos % (Auto) Baso % (Auto) Absolute Neuts (auto) Absolute Lymphs (auto) Nucleated RBC % PT 12.2 INR 1.0 APTT Sodium Potassium Chloride Carbon Dioxide Anion Gap BUN Creatinine Estim Creat Clear Calc Est GFR (MDRD) Af Amer Est GFR (MDRD) Non-Af BUN/Creatinine Ratio Glucose Calcium Total Bilirubin AST ALT Alkaline Phosphatase Ammonia 32.0 Troponin I 2.060 H* Total Protein Albumin Globulin Albumin/Globulin Ratio Procalcitonin Acetone Level COVID-19 (RACHEL) - Rhythm Strip Rhythm Strip: Sinus Rhythm Rate: 81 - EKG Initial EKG Interpretation: Sinus Rhythm, RBBB - Medical Decision Making 69-year-old male presenting with altered mental status, fever, dry cough. His vital signs are stable he is not hypoxic. During his work-up he initially had EKG which shows slightly widened QRS rhythm with right bundle branch block 81 bpm as interpreted by myself. Chest x-ray is negative as read by myself and the radiologist. Patient's hemoglobin is actually elevated from previous. He is slightly leukopenic. Does not have a leukocytosis. Renal function is as expected from a dialysis patient. No significant electrolyte abnormalities. Patient's procalcitonin is slightly elevated and I attempted to get a urinalysis however the patient is unable to make urine currently. He does state he makes urine. Ischial troponin is 1.88 however the patient still does not have any chest pain. Given that the patient is a dialysis patient I did recheck his troponin to ensure it was not going up and has gone up slightly to 2.06. He did test positive for Covid?19 as well. Patient discussed with hospitalist and we will start heparin drip as well as give aspirin. Patient did have alternations in his mental status while he was here. This was discussed with his daughter who states that he does sometimes have that. He was transferred to the floor in stable condition. Impression: 1. Covid?19 2. NSTEMI 3. Altered mental status ED Disposition - Plan for ED Patient: Disposition: Acute Care Hospital [facility]
--- NOTE | 2020-07-24 14:16 | EKG12_ITS ---
Test Reason : AM EKG Blood Pressure : / mmHG Vent. Rate : 067 BPM Atrial Rate : 067 BPM P-R Int : 366 ms QRS Dur : 138 ms QT Int : 446 ms P-R-T Axes : 044 268 017 degrees QTc Int : 471 ms Sinus rhythm with 1st degree A-V block Right bundle branch block Inferior infarct , age undetermined Abnormal ECG Confirmed by JOHN SARMIENTO, LUIS ([id number]), editorial cartoonist KILO MACDONALD ([id number]) on 07/27/2020 8:10:49 AM Referred By: AMADOR Confirmed By:LUIS LOPEZ MD
--- NOTE | 2020-07-24 14:16 | RAD_ITS ---
STUDY: X-RAY CHEST REASON FOR EXAM: Male, 69 years old. COUGH, WEAKNESS, SOB TECHNIQUE: Single AP portable view of the chest. COMPARISON: Comparison is made with prior study dated 06/15/2020. FINDINGS: A right-sided double-lumen catheter is seen with the tip in the right atrium. This is unchanged. Hyperinflation. The lungs are clear. There is no demonstrated pleural abnormality. Sternal cerclage wires and vascular clips are present from a prior sternotomy and coronary artery bypass graft procedure (CABG). Normal mediastinum and job. Normal visualized pulmonary arteries. There is atherosclerotic calcification of the aortic arch with tortuosity. Normal visualized thoracic spine. Normal visualized ribs, clavicles, and shoulders. There is no demonstrated abnormality of the visualized soft tissue structures of the upper abdomen. RAD/Chest 1 View (Portable) IMPRESSION: Hyperinflation. The lungs are clear. Electronically Signed: Attila Cabello, at 15:43 EST , Service support ,
[2020-07-24 14:25] LABS: Absolute Lymphocyte Count 0.98 X10^3/uL (0.83-4.51); Absolute Neutrophil Count 5.9 X10^3/uL (2.0-7.7); Basophil# 0.04 X10^3/uL; Basophil% 0.5 % (0-1); Eosinophil# 0.18 X10^3/uL; Eosinophils% 2.2 % (0-5); Hematocrit 33.2 % (40-54); Hemoglobin 10.7 g/dL (13.0-16.5); Lymphocyte # 0.98 X10^3/ul (4.0); Mean Corp Hgb Conc 32.2 g/dL (32-36); Mean Corpuscular Hgb 30.1 pg (27.0-32.0); Mean Corpuscular Volume 93.3 fL (80-94); Mean Platelet Vol. 9.6 fl (6.2-12.0); Monocyte# 1.06 X10^3/uL; NRBC Flagged by Analyzer 0 % (0-5); Neutrophil # 5.88 X10^3/uL (2.7-7.7); Neutrophil % 71.8 % (47-70); Platelet Count 230 K/mm3 (150-450); RBC Distribution Width CV 15.2 % (11.6-14.6); RBC Distribution Width SD 51.9 fl (35.1-43.9); Red Blood Count 3.56 M/mm3 (4.6-6.2); White Blood Count 8.2 K/mm3 (4.4-11.0)
--- NOTE | 2020-07-24 15:49 | ED.RN ---
DR. RIVAS MADE OF AWARE OF TROP OF 1.88
[2020-07-24 15:50] LABS: ALB/GLOB Ratio 0.8 RATIO (0.9-2.4); AST(SGOT) 62 U/L (15-37); Alanine Aminotransfer ALT/SGPT 17 U/L (16-61); Albumin, Serum 3.3 g/dL (3.2-5.0); Alkaline Phosphatase 57 U/L (45-117); Anion Gap 6 (5-15); BUN 37 mg/dL (7-18); BUN/Creat Ratio 5.9 RATIO (10-20); Calcium,Total 8.9 mg/dL (8.5-10.1); Chloride 99 mmol/L (98-107); Creatinine, Serum 6.26 mg/dL (0.70-1.30); EST Glomerular Filtration Rate 9 mL/min (>60); Est Glom Filt Rate - Afr Amer 11 mL/min (>60); Estimated Creatinine Clearance 10.47 ml/min; Globulin 3.9 g/dL (2.2-4.2); Glucose 91 mg/dL (74-106); Potassium 3.7 mmol/L (3.5-5.1); Protein, Total 7.2 g/dL (6.4-8.2); Sodium Level 139 mmol/L (136-145)
[2020-07-24 16:17] LABS: Procalcitonin 0.46 ng/mL (0.00-0.09)
[2020-07-24 16:18] LABS: Probe Check PASS; Specimen Processing Control PASS
--- NOTE | 2020-07-24 18:41 | PCM.HP.STD ---
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 angioplasty by Dr. Kamara (6) HTN (hypertension) Status: Chronic Qualifiers: Hypertension type: essential hypertension Qualified Code(s): I10 - Essential (primary) hypertension (7) Peripheral vascular disease Status: Chronic Comment: BL LE PVD - status post angioplasty on 3 occasions (8) Status post coronary artery bypass graft Status: Chronic Comment: 3 vessel CABG per pt in 2014? (9) Diabetes mellitus, type 2 Status: Chronic Qualifiers: Diabetes mellitus skilled nursing insulin use: without skilled nursing use Diabetes mellitus complication status: with circulatory complication Diabetes mellitus complication detail: with other circulatory complications Qualified Code(s): E11.59 - Type 2 diabetes mellitus with other circulatory complications Comment: historically poorly controlled due to non-compliance (10) GERD (gastroesophageal reflux disease) Status: Chronic Qualifiers: Esophagitis presence: esophagitis presence not specified Qualified Code(s): K21.9 - Gastro-esophageal reflux disease without esophagitis (11) Hyperlipidemia Status: Chronic Qualifiers: Hyperlipidemia type: pure hypercholesterolemia Qualified Code(s): E78.00 - Pure hypercholesterolemia, unspecified; E78.0 - Pure hypercholesterolemia (12) CAD (coronary artery disease) Status: Chronic Qualifiers: Coronary Disease-Associated Artery/Lesion type: unspecified vessel or lesion type [place] vs. transplanted heart: unspecified whether [place] or transplanted heart Associated angina: angina presence unspecified Qualified Code(s): I25.10 - Atherosclerotic heart disease of [place] coronary artery without angina pectoris History of Present Illness Date of Admission: 07/24/20 Chief Complaint: Dyspnea, cough, weakness, confusion. The patient is a 69 y/o M w/ PMHx: CAD s/p CABG x 3, HTN, HLD, Hx L Parietal CVA, Hx SDH/Intraventricular hemorrhage 07/2019 with seizure disorder resulting, PVD/PAD s/p BL LE angioplasties, GERD, ESRD on HD, BPH, Diabetes mellitus type II uncontrolled who presents to the [facility] ED on 07/24/20 with history of fatigue, weakness, debility, ongoing cough with dyspnea, mild confusion x 3 days sent to the ED for evaluation secondary to onset of fever 101 at dialysis with no associated body aches, headaches, alteration in sense of taste or smell prompting evaluation. Patient notes that he was last tested the Friday prior and was negative for Covid at that time. Patient notes that he only received approximately 75% of his dialysis timeline secondary to onset of symptoms. He notes he had AVF surgery LUE per Dr. Kamara on 07/18/20 without issues. He denies any significant chest pain, but does note some difficulty with inspiratory effort. In the ED following presentation he clinically improved and was more oriented. Work-up in the ED included T 97.4, heart rate 80, BP 105/76, respiratory rate 18, 97% on room air, CBC with WBC 8.2, hemoglobin 10.7, platelet 230 with no marked shift, CMP with carbon DEXA 34, BUN/creatinine 37/6.26, glucose 91, AST/ALT 62/17, alk phos 57, ammonia 32, troponin 1.880, acetone level negative, positive Covid testing, but culture x2 pending per ED, chest x-ray with hyperinflation with no acute cardiopulmonary findings otherwise, EKG in ED w/ SR with mildly widened QRS, RBBB. Past Medical History Past Medical History (Chronic Problems): Chronic Problems (Last Reviewed 06/29/20 @ 09:18 by Leola Bhagat) End-stage renal disease on hemodialysis (Chronic) End stage renal disease on dialysis (Chronic) Depression (Chronic) BPH with obstruction/lower urinary tract symptoms (Chronic) Left ventricular hypertrophy (Chronic) Diverticulosis (Chronic) Tobacco dependence in remission (Chronic) smoked for only 3 hours hx of APLL (Chronic) Left leg- 05/16/19 left superficial femoral artery and left popliteal artery angioplasty by Dr. Kamara History of angioplasty of peripheral vessel (Chronic ~2016) 01/01/16 L Peroneal and L superficial femoral A. angioplasty by Dr. Kamara HTN (hypertension) (Chronic) History of stroke (Chronic) Left parietal in August of 2017 Peripheral vascular disease (Chronic) BL LE PVD - status post angioplasty on 3 occasions Status post coronary artery bypass graft (Chronic) 3 vessel CABG per pt in 2014? Diabetes mellitus, type 2 (Chronic) historically poorly controlled due to non-compliance GERD (gastroesophageal reflux disease) (Chronic) Hyperlipidemia (Chronic) CAD (coronary artery disease) (Chronic) Medical History: Medical History (Last Reviewed 06/29/20 @ 09:18 by Leola Bhagat) Depression (Chronic) F32.9 BPH with obstruction/lower urinary tract symptoms (Chronic) N40.1, N13.8 Left ventricular hypertrophy (Chronic) I51.7 Diverticulosis (Chronic) K57.90 Tobacco dependence in remission (Chronic) F17.201 smoked for only 3 hours HTN (hypertension) (Chronic) I10 History of stroke (Chronic) Z86.73 Left parietal in August of 2017 Peripheral vascular disease (Chronic) I73.9 BL LE PVD - status post angioplasty on 3 occasions Diabetes mellitus, type 2 (Chronic) E11.9 historically poorly controlled due to non-compliance GERD (gastroesophageal reflux disease) (Chronic) K21.9 Hyperlipidemia (Chronic) E78.5 CAD (coronary artery disease) (Chronic) I25.10 Fatigue R53.83 Heart disease I51.9 Closed intraventricular hemorrhage (Inactive) I61.5 07/22/19 Intracerebral hemorrhage (Inactive) I61.9 07/22/19 Subdural hemorrhage (Inactive) I62.00 07/22/19 Allergies No Known Allergies Allergy (Verified 07/24/20 14:06) Home Medications: Ambulatory Orders Medication Instructions Recorded Finasteride 5 mg PO DAILY 07/30/19 Amlodipine [Norvasc] 5 mg PO DAILY 05/26/20 Aspirin [Aspirin, Baby] 81 mg PO DAILY@0800 05/26/20 Atorvastatin Calcium 80 mg PO QHS 05/26/20 levETIRAcetam tablet [Keppra 500 mg PO BID 05/26/20 tablet] Carvedilol [Coreg] 12.5 mg PO BID 05/27/20 Insulin Glargine,Hum.rec.anlog 10 unit SQ BREAKFAST 06/07/20 [Basaglar Catie U-100] Fenofibrate,Micronized 67 mg PO DAILY 06/08/20 [Fenofibrate] Calcium Acetate [Phoslo Gel Cap] 667 mg PO TIDCM 07/12/20 Hydralazine HCl 25 mg PO TID 07/24/20 Pantoprazole Sodium [Protonix] 40 mg PO DAILY 07/24/20 Tamsulosin HCl [Flomax] 0.8 mg PO QHS 07/24/20 Surgical History: Surgical History (Last Reviewed 06/29/20 @ 09:18 by Leola Bhagat) hx of APLL (Chronic) Left leg- 05/16/19 left superficial femoral artery and left popliteal artery angioplasty by Dr. Kamara History of angioplasty of peripheral vessel (Chronic) Onset Date: ~2016 Z98.62 01/01/16 L Peroneal and L superficial femoral A. angioplasty by Dr. Kamara Status post coronary artery bypass graft (Chronic) Z95.1 3 vessel CABG per pt in 2014? Surgical History: coronary bypass surgery, - - Benign soft tissue tumor resection, CABG x 3, PCI x 1, BL tunnel surgery, bilateral lower extremity venous intervention unclear type. Psychiatric History: No pertinent psych hx Lives: With Family Smoking Status: Former smoker Tobacco Use: Non-smoker Alcohol: None Drugs: None - *Family History Maternal Family History: Family History (Last Reviewed 06/29/20 @ 09:18 by Leola Bhagat) Brother Diabetes Mother Hypertension Daughter Diabetes History Items: - - Patient notes that his mother was healthy and denies any history of heart disease, diabetes or cancer, passed at age 93. Paternal Family History: Family History (Last Reviewed 06/29/20 @ 09:18 by Leola Bhagat) Brother Diabetes Mother Hypertension Daughter Diabetes History Items: - - Patient notes that his father was healthy with no history of heart disease, diabetes or cancer, passed at age 89 secondary to brain aneurysm rupture. Review of Systems Constitutional: Reports: Anorexia, Fever, Malaise, Weakness, Fatigue. Denies: Chills, Weight Change HEENT: Denies: Head Aches, Sinus Congestion, Sinus Drainage Cardiovascular: Reports: Light Headedness. Denies: Chest Pain, Chest Pressure, Chest Tightness, Orthopnea, Palpitations, Syncope Respiratory: Reports: Cough, Shortness of Breath, Shortness of breath at rest, Shortness of breath upon exertion. Denies: Pleuritic Pain, Sputum production, Wheezing Gastrointestinal: Denies: Abdominal Pain, Diarrhea, Nausea, Vomiting Genitourinary: Reports: Frequency. Denies: Dysuria Musculoskeletal: Reports: Back Pain, Joint Pain. Denies: Joint Tenderness Skin: Reports: Skin Changes. Denies: Rash, Wounds Neurological: Reports: Seizures. Denies: Focal weakness, Numbness, Tingling Psychiatric: Denies: Anxiety, Depression, Homicidal Ideations, Suicidal Ideations Hematologic/ Lymphatic: Reports: Anemia, Easy Bruising, Easy Bleeding VTE Information - Inpt Only VTE Present on Admission: No VTE Mechan Device Prophylaxis: SCD's VTE Pharm Prophylaxis ordered?: Yes Subjective: Patient seated upright in the ED bed, fatigued appearing, notes feeling improved since initial ED presentation, more oriented. Objective: Physical Examination: General: awake, alert, oriented upon Hospitalist evaluation to self, place, month, year and president, improved since initial ED presentation, remains cooperative, seated upright in the ED bed in no apparent distress. Skin: normal color, turgor, no icterus, cyanosis except LUE incision s/p surgery for AVF, well appearing, steri-strips in place, no bleeding, some expected ecchymoses. HEENT: AT/NC, EOMI, PERRLA, dry MM, no carotid bruits or JVD noted. Lungs: Diminished breath sounds, greater throughout, ongoing intermittent coughing during evaluation, no evidence of distress, no rales, ronchi or wheezing. Heart: Regular rate and rhythm; no gallop, rub audible. Abdomen: soft, NTTP, ND, normal BS, no HSM. Extremities: no cyanosis, clubbing, or edema, except noted left upper extremity status post aVF intervention, incision well appearing, see skin. Neurological: patient awake, alert, oriented as noted; cognitive function improving, suspect nearing baseline; pupils equally reactive to light and accomodation; cranial nerves II-XII grossly normal, moving all 4 extremities, no focal deficits, strength remains moderately to severely globally decreased secondary to acute presentation. Psychiatric: affect appears flat, fatigued, no acute evidence of depressive or anxiety feelings. - Physical Exam Vitals/I&O's: Vital Signs Temp Pulse Resp BP Pulse Ox 97.7 F L 71 17 123/56 H 97 07/24/20 18:00 07/24/20 18:00 07/24/20 18:00 07/24/20 18:00 07/24/20 18:00 Oxygen Delivery Method Room Air Weight: 151 lb 10.848 oz Body Mass Index (BMI) 23.1 Finger Stick Blood Glucose 480 Laboratory Results 07/24/20 14:20: WBC 8.2, RBC 3.56 L, Hgb 10.7 L, Hct 33.2 L, MCV 93.3, MCH 30.1, MCHC 32.2, RDW Std Deviation 51.9 H, RDW Coeff of Arturo 15.2 H, Plt Count 230, MPV 9.6, Immature Gran % (Auto) 0.500, Neut % (Auto) 71.8 H, Lymph % (Auto) 12.0 L, [place] % (Auto) 13.0 H, Eos % (Auto) 2.2, Baso % (Auto) 0.5, Absolute Neuts (auto) 5.9, Absolute Lymphs (auto) 0.98, Nucleated RBC % 0 07/24/20 15:00: Sodium 139, Potassium 3.7, Chloride 99, Carbon Dioxide 34.0 H, Anion Gap 6, BUN 37 H, Creatinine 6.26 H, Estim Creat Clear Calc 10.47, Est GFR (MDRD) Af Amer 11 L, Est GFR (MDRD) Non-Af 9 L, BUN/Creatinine Ratio 5.9 L, Glucose 91, Calcium 8.9, Total Bilirubin 0.40, AST 62 H, ALT 17, Alkaline Phosphatase 57, Troponin I 1.880 H*, Total Protein 7.2, Albumin 3.3, Globulin 3.9, Albumin/Globulin Ratio 0.8 L 07/24/20 15:00: Procalcitonin 0.46 H 07/24/20 15:00: Acetone Level NEGATIVE 07/24/20 15:00: COVID-19 (RACHEL) Positive 07/24/20 16:55: Ammonia 32.0 07/24/20 17:45: Troponin I Pending Assessment/Plan All Active Problems (Last Reviewed 06/29/20 @ 09:18 by Leola Bhagat) Problem with dialysis access (Acute) COVID-19 (Acute) NSTEMI (non-ST elevated myocardial infarction) (Acute) Aspiration into airway (Ruled-out) Frequent falls (Acute) Generalized weakness (Acute) Debility (Acute) Frequent falls (Acute) The patient is a 69 y/o M w/ PMHx: CAD s/p CABG x 3, HTN, HLD, Hx L Parietal CVA, Hx SDH/Intraventricular hemorrhage 07/2019 with seizure disorder resulting, PVD/PAD s/p BL LE angioplasties, GERD, ESRD on HD, BPH, Diabetes mellitus type II uncontrolled who presents to the [facility] ED on 07/24/20 with history of fatigue, weakness, debility, ongoing cough with dyspnea, mild confusion x 3 days sent to the ED for evaluation secondary to onset of fever 101 at dialysis with no associated body aches, headaches, alteration in sense of taste or smell prompting evaluation. 1. Acute Encephalopathy, Dyspnea, Cough, Fever secondary to Acute Viral Syndrome, COVID-19: Will admit to the COVID unit, will maintain on oxygen with wean as tolerated to room air, continue PRN albuterol, HOB, IS parameters w/ pending sputum cultures and urine antigens, will obtain procalcitonin, d-dimer (expect elevation given ESRD status but per protocol) and if CT needed may consider prior to next HD session maintaining on Heparin drip, CRP, CPK, Ferritin, LDH, cycle cardiac enzymes and ECHO requested given #2, repeat EKG in AM, continue supportive care including q 2 hour turning including prone given no prone bed availability and judicious hydration, closely monitor for worsening status for ARDS and multiorgan failure, ID consulted, T+S requested, given renal disease poor candidate for remdesivir, given no hypoxia defer decadron. Bld cx x 2 obtained in the ED. 2. Acute NSTEMI, likely demand secondary to #1: EKG in ED w/ SR with mildly widened QRS, RBBB, CXR w/ no acute cardiopulmonary findings. Trop elevated, 1.880 with most recent prior noted 06/15/2020 0.028. Will maintain on a monitored bed, continue serial cardiac enzymes and EKGs. Obtain magnesium level upon admission. Start Heparin drip. Continue medical management w/ asa, BB, statin w/ AM FLP. ECHO requested. May consider cardiology consultation; however, given positive COVID status any intervention would be deferred and ECHO may be deferred also per Cardiology. ASA, NG, morphine. 3. CAD: s/p CABG x 3, HTN, HLD, Hx L Parietal CVA, will continue aspirin, beta-ginny, statin therapy. 4. Hx SDH/Intraventricular hemorrhage: Noted injury 07/2019 with seizure disorder resulting, will continue patient Keppra regimen. Maintain on fall precautions. 5. PVD/PAD: Patient s/p BL LE angioplasties, will continue aspirin, statin, hypertensive regimen, diabetic regimen. 6. Diabetes mellitus type II, uncontrolled: Hold oral home regimen, continue home insulin regimen, ADA diet, accu checks w/ ISS, hemoglobin A1c pending. Noted difficulty paying for his insulin in the past as his barrier prior. 7. AOCD/Chronic normocytic anemia: Admission hemoglobin 10.7, baseline since 07/2019 appears primarily 9-10 but has been trending downward. 8. GERD: We will continue patient on Protonix regimen. 9. ESRD on HD: Recent HD ~ 75% usual regimen on day of ED presentation, will continue HD MWF regimen with Nephrology consultation (Dr. Morales/[facility]). Recently noted issues with HD access with 07/18/20 stage II transposition left upper arm basilic vein to brachial artery AV fistula creation per Dr. Kamara. 10. Hypertension: Continue home regimen including Norvasc, Coreg, hydralazine with hold parameters, PRN hydralazine. 11. Hyperlipidemia: Continue home statin regimen. AM FLP. 12. BPH: We will continue patient home Flomax and finasteride regimen. 13. DVT prophylaxis: SCDs, heparin. 14. CODE status: Patient states he does not have healthcare power of litigation attorney associate nor living will set up but notes if it was to be set up it would be with Dinorah as his healthcare power of litigation attorney associate. Encouraged him to discuss these items potentially with case management if he is interested in assistance in initiating the process. Discussed CODE status at length including difference between FULL code, DNR-CCA and DNR-CC status. Following discussions about the differences in these status, requested Full Code status. These items were discussed following orientation questions which had significantly improved since initial ED presentation and patient was giving correct month, year, president. Advanced Care Planning Face to Face Time: 16 minutes. Inpatient E&M: 95700 Init Hosp L3 Procedures: 96793 Advncd Care Plan 30 Min
[2020-07-24] MEDS: Aspirin 81 MG TAB.CHEW 324 MG PO (18:48)
[2020-07-24] MEDS: Heparin Injection (Vial) 5,000 UNIT/ML VIAL 4500 UNIT IV (19:18)
[2020-07-24] MEDS: HEPARIN/D5w 25,000 UNITS 25,000 UNITS/250 ML IV.SOLN. 10 UNITS IV (19:23)
[2020-07-24 19:30] LABS: Prothrombin Time (Protime)PT. 12.2 SECONDS (11.7-14.9)
--- NOTE | 2020-07-24 19:33 | ED.RN ---
SPOKE TO PT'S DAUGHTER SHIRLEY, UPDATED ON PT'S POSITIVE COVID TEST. DAUGHTER STATE HE HAS SOME BASELINE CONFUSION, HAS SEEN A STEADY DECLINE. STATES PT IS INCONTINENT OF BOWELS OFTEN, CONFUSION WAXES AND WANES.
[2020-07-24] MEDS: 0.9% Normal Saline 1,000 ML 60 ML IV (21:15)
[2020-07-24] MEDS: 0.9% Saline Lock 10 ML Syringe IV (21:21)
[2020-07-24 21:32] LABS: Ferritin 261 ng/mL (26-388); LDH 274 U/L (87-241)
[2020-07-24 21:40] LABS: Bedside Glucose 91 mg/dL (70-110)
[2020-07-24] MEDS: Tamsulosin HCl 0.4 MG Capsule 0.8 MG PO (21:51)
[2020-07-24] MEDS: Atorvastatin Calcium 80 MG Tablet PO (21:51)
[2020-07-24] MEDS: Carvedilol 12.5 MG Tablet PO (21:51)
[2020-07-24] MEDS: levETIRAcetam 500 MG Tablet PO (21:51)
[2020-07-24] MEDS: hydrALAZINE 25 MG Tablet PO (21:51)
[2020-07-24] MEDS: Morphine 2 MG/ML Syringe IV (21:57)
[2020-07-24 22:30] LABS: Partial Thromboplast Time 240.3 Seconds (24.1-36.2)
[2020-07-24 22:31] LABS: D-Dimer Quantitative (DVT/PE) 2.21 FEU/ug/m (0.27-0.49)
[2020-07-24 23:10] LABS: Procalcitonin 0.64 ng/mL (0.00-0.09)
[2020-07-25] VITALS (16 sets, daily range): BP systolic 110–145; BP diastolic 53–76; PULSE 55–69; RESP 16–20; TEMP 36.6–37.7; O2SAT 90–97
[2020-07-25 05:16] LABS: Absolute Lymphocyte Count 1.29 X10^3/uL (0.83-4.51); Absolute Neutrophil Count 3.2 X10^3/uL (2.0-7.7); Basophil# 0.03 X10^3/uL; Basophil% 0.5 % (0-1); Eosinophils% 1.8 % (0-5); Hematocrit 30.6 % (40-54); Hemoglobin 9.4 g/dL (13.0-16.5); Lymphocyte # 1.29 X10^3/ul (4.0); Lymphocyte % 23.3 % (19-41); Mean Corp Hgb Conc 30.7 g/dL (32-36); Mean Corpuscular Hgb 29.8 pg (27.0-32.0); Mean Corpuscular Volume 97.1 fL (80-94); Mean Platelet Vol. 9.6 fl (6.2-12.0); Monocyte# 0.92 X10^3/uL; Monocyte% 16.6 % (0-10); NRBC Flagged by Analyzer 0 % (0-5); Neutrophil # 3.16 X10^3/uL (2.7-7.7); Neutrophil % 57.3 % (47-70); Platelet Count 184 K/mm3 (150-450); RBC Distribution Width CV 15.2 % (11.6-14.6); RBC Distribution Width SD 53.7 fl (35.1-43.9); Red Blood Count 3.15 M/mm3 (4.6-6.2); White Blood Count 5.5 K/mm3 (4.4-11.0)
[2020-07-25 05:25] LABS: Partial Thromboplast Time 88.9 Seconds (24.1-36.2)
[2020-07-25] MEDS: hydrALAZINE 25 MG Tablet PO ×3 (05:33→20:50)
[2020-07-25 05:48] LABS: ALB/GLOB Ratio 0.8 RATIO (0.9-2.4); AST(SGOT) 67 U/L (15-37); Alanine Aminotransfer ALT/SGPT 21 U/L (16-61); Albumin, Serum 2.7 g/dL (3.2-5.0); Alkaline Phosphatase 42 U/L (45-117); Anion Gap 10 (5-15); BUN 54 mg/dL (7-18); BUN/Creat Ratio 6.7 RATIO (10-20); Calcium,Total 8.1 mg/dL (8.5-10.1); Chloride 99 mmol/L (98-107); Cholesterol 115 mg/dL (200); Creatinine, Serum 8.07 mg/dL (0.70-1.30); EST Glomerular Filtration Rate 7 mL/min (>60); Est Glom Filt Rate - Afr Amer 9 mL/min (>60); Estimated Creatinine Clearance 7.62 ml/min; Globulin 3.4 g/dL (2.2-4.2); Glucose 79 mg/dL (74-106); High Density Lipoprotein 41 mg/dL; Potassium 4.3 mmol/L (3.5-5.1); Protein, Total 6.1 g/dL (6.4-8.2); Sodium Level 136 mmol/L (136-145); Triglycerides 142 mg/dL; Very Low Density Lipoprotein 28 mg/dL (5-40)
--- NOTE | 2020-07-25 05:55 | EKG12_ITS ---
Test Reason : SOB Blood Pressure : / mmHG Vent. Rate : 081 BPM Atrial Rate : 092 BPM P-R Int : 000 ms QRS Dur : 138 ms QT Int : 434 ms P-R-T Axes : 000 -76 005 degrees QTc Int : 504 ms Sinus Rhythm Left axis deviation Right bundle branch block Inferior infarct , age undetermined Abnormal ECG Confirmed by BRYAN SARMIENTO, SATNAM ([id number]), metropolitan editor SELVIN MATUTE ([id number]) on 08/02/2020 9:55:11 A M Referred By: ROB Confirmed By:JAEL ADAMS MD
--- NOTE | 2020-07-25 07:25 | PCM.PN.HOSP ---
Patient Problems: Active and Suspected Problems (Last Reviewed 06/29/20 @ 09:18 by Leola Bhagat) COVID-19 (Acute) NSTEMI (non-ST elevated myocardial infarction) (Acute) Subjective: Patient seen and examined. He was admitted with a complaint of nausea whilst he was at his dialysis center. He also had a cough with associated weakness and confusion. On admission troponin was 1.88 and Covid test was positive. He is being managed for COVID-19 infection as well as non-STEMI. Patient has no complaints this morning. He denies any shortness of breath, fever or chills, nausea or vomiting. He is on 2 L of oxygen. He has a low-grade fever this morning of 99.3 Fahrenheit but is otherwise stable. Troponin trended up to a peak of 2.6 and trended down to 2.04. Vitals/I&O's: Vital Signs Temp Pulse Resp BP Pulse Ox 99.8 F H 65 20 H 145/76 H 94 07/25/20 02:59 07/25/20 06:59 07/25/20 02:59 07/25/20 02:59 07/25/20 02:59 Oxygen Delivery Method Room Air Weight: 144 lb 6.444 oz Body Mass Index (BMI) 21.5 Finger Stick Blood Glucose 480 Intake and Output for Last 24 Hours 07/23/20 07/24/20 07/25/20 23:59 23:59 23:59 Intake Total 32.83 / 32.83 34.65 / 34.65 Balance 32.83 / 32.83 34.65 / 34.65 General: Alert, Oriented x3, Cooperative, No apparent distress, Lethargic HEENT: Atraumatic, PERRLA, EOMI, Normocephalic Oral: Dry Mucosa Neck: Supple, No JVD, Negative Carotid Bruits Lungs: - - diminished breath sounds bibasally, no wheezes or crackles. on 2L of oxygen Cardiovascular: Regular rate, Regular Rhythm, Normal S1, Normal S2, No murmurs Abdomen: Bowel Sounds Present, Soft, Non Tender, Non-Distended, No Hepato-splenomegaly Extremities: No clubbing, No cyanosis, No edema, Capillary Refill Less than 3 Seconds Skin: No rashes, No breakdown Musculoskeletal: No Tenderness to Palpation of Joints or Extremities Lymphatic: No Cervical, Supraclavicular, or Inguinal Adenopathy Neurological: Cranial nerves II-XII grossly intact, Neuro grossly intact, Motor Exam 5/5 strength throughout Psych/Mental Status: Normal Affect, Appropriate, Alert and oriented to time, place, person, mood and affect Microbiology Past 72 Hours 07/24/20 15:00 Mucosa - Nasopharyngeal Respiratory Panel (PCR) - Final Laboratory Results 07/24/20 14:20: WBC 8.2, RBC 3.56 L, Hgb 10.7 L, Hct 33.2 L, MCV 93.3, MCH 30.1, MCHC 32.2, RDW Std Deviation 51.9 H, RDW Coeff of Arturo 15.2 H, Plt Count 230, MPV 9.6, Immature Gran % (Auto) 0.500, Neut % (Auto) 71.8 H, Lymph % (Auto) 12.0 L, Freestone % (Auto) 13.0 H, Eos % (Auto) 2.2, Baso % (Auto) 0.5, Absolute Neuts (auto) 5.9, Absolute Lymphs (auto) 0.98, Nucleated RBC % 0 07/24/20 15:00: Sodium 139, Potassium 3.7, Chloride 99, Carbon Dioxide 34.0 H, Anion Gap 6, BUN 37 H, Creatinine 6.26 H, Estim Creat Clear Calc 10.47, Est GFR (MDRD) Af Amer 11 L, Est GFR (MDRD) Non-Af 9 L, BUN/Creatinine Ratio 5.9 L, Glucose 91, Calcium 8.9, Total Bilirubin 0.40, AST 62 H, ALT 17, Alkaline Phosphatase 57, Troponin I 1.880 H*, Total Protein 7.2, Albumin 3.3, Globulin 3.9, Albumin/Globulin Ratio 0.8 L 07/24/20 15:00: Procalcitonin 0.46 H 07/24/20 15:00: Acetone Level NEGATIVE 07/24/20 15:00: COVID-19 (RACHEL) Positive 07/24/20 15:00: APTT 36.0 07/24/20 15:00: PT 12.2, INR 1.0 07/24/20 16:55: Ammonia 32.0 07/24/20 17:45: Troponin I 2.060 H* 07/24/20 17:45: Magnesium 2.0, Ferritin 261, Lactate Dehydrogenase 274 H, C-React Prot Ext Range 17.90 H 07/24/20 21:23: POC Glucose 91 07/24/20 21:55: APTT 240.3 H*, D-Dimer Quant (PE/DVT) 2.21 H* 07/24/20 21:55: Procalcitonin 0.64 H 07/24/20 21:55: Troponin I 2.620 H* 07/25/20 04:54: WBC 5.5, RBC 3.15 L, Hgb 9.4 L, Hct 30.6 L, MCV 97.1 H, MCH 29.8, MCHC 30.7 L, RDW Std Deviation 53.7 H, RDW Coeff of Arturo 15.2 H, Plt Count 184, MPV 9.6, Immature Gran % (Auto) 0.500, Neut % (Auto) 57.3, Lymph % (Auto) 23.3, Freestone % (Auto) 16.6 H, Eos % (Auto) 1.8, Baso % (Auto) 0.5, Absolute Neuts (auto) 3.2, Absolute Lymphs (auto) 1.29, Nucleated RBC % 0 07/25/20 04:54: Sodium 136, Potassium 4.3, Chloride 99, Carbon Dioxide 27.0, Anion Gap 10, BUN 54 H, Creatinine 8.07 H*, Estim Creat Clear Calc 7.62, Est GFR (MDRD) Af Amer 9 L, Est GFR (MDRD) Non-Af 7 L, BUN/Creatinine Ratio 6.7 L, Glucose 79, Calcium 8.1 L, Total Bilirubin 0.40, AST 67 H, ALT 21, Alkaline Phosphatase 42 L, Total Protein 6.1 L, Albumin 2.7 L, Globulin 3.4, Albumin/Globulin Ratio 0.8 L, Triglycerides 142, Cholesterol 115, LDL Cholesterol 46, VLDL Cholesterol 28, HDL Cholesterol 41 07/25/20 04:54: Troponin I 2.040 H* 07/25/20 04:54: APTT 88.9 H Diagnostic Data Chest X-Ray 07/24/20 14:16 IMPRESSION: Hyperinflation. The lungs are clear. Electronically Signed: Attila Cabello, at 15:43 EST , Service support , Current Medications Acetaminophen (Acetaminophen 325 Mg Tablet) 650 mg PO Q6H PRN PRN PRN Reason: Pain Score 1-10/Temp > 100.7 F Al Hydroxide/Mg Hydroxide (Mag Hydrox/Al Hydrox/Simeth 30 Ml Udc) 30 ml PO Q6H PRN PRN PRN Reason: Gastric Burning Albuterol Sulfate (Albuterol Sulfate 8 Gm Inhaler (60 Puffs)) 1 puff INHALATION Q4H PRN PRN PRN Reason: Dyspnea, wheezing Amlodipine Besylate (Amlodipine 5 Mg Tablet) 5 mg PO DAILY [facility] Aspirin (Aspirin 81 Mg Tab.Chew) 81 mg PO DAILY@0800 [facility] Atorvastatin Calcium (Atorvastatin Calcium 80 Mg Tablet) 80 mg PO QHS [facility] Last Admin: 07/24/20 21:51 Dose: 80 mg Documented by: Calcium Acetate (Calcium Acetate 667 Mg Capsule) 667 mg PO TIDCM [facility] Carvedilol (Carvedilol 12.5 Mg Tablet) 12.5 mg PO BID [facility] Last Admin: 07/24/20 21:51 Dose: 12.5 mg Documented by: Finasteride (Finasteride 5 Mg Tablet) 5 mg PO DAILY [facility] Guaifenesin (Guaifenesin 10 Ml Udc (200mg/10ml)) 20 ml PO Q4H PRN PRN PRN Reason: COUGH Heparin Sodium (Porcine) (Heparin Injection (Vial) 5,000 Unit/Ml Vial) 0 unit IV UD PRN; Protocol PRN Reason: dose adjustment Hydralazine HCl (Hydralazine 25 Mg Tablet) 25 mg PO TID [facility] Last Admin: 07/25/20 05:33 Dose: 25 mg Documented by: Hydralazine HCl (Hydralazine 20 Mg/Ml Vial) 10 mg IV Q4H PRN PRN PRN Reason: SBP > 160 Sodium Chloride () 1,000 mls @ 60 mls/hr IV .[id number] [facility] Last Admin: 07/24/20 21:15 Dose: 60 mls/hr Documented by: Heparin Sodium/Dextrose () 25,000 units in 250 mls @ 10 mls/hr IV .Q25H [facility]; Protocol Last Admin: 12/14/20 22:05 Dose: Not Given Documented by: Sodium Chloride () 250 mls @ 15 mls/hr IV .[id number] PRN PRN Reason: Saline Flush Sodium Chloride () 250 mls @ 15 mls/hr IV .[id number] PRN PRN Reason: Additional IVPB Infusion Insulin Glargine (Insulin Glargine 100 Units/Ml Pen) 10 units SC 0700 [facility] Insulin Human Lispro (Insulin Lispro 100 Unit/Ml Insuln.Pen) 0 unit SC ACHS [facility]; Protocol Last Admin: 07/24/20 21:24 Dose: Not Given Documented by: Levetiracetam (Levetiracetam 500 Mg Tablet) 500 mg PO BID [facility] Last Admin: 07/24/20 21:51 Dose: 500 mg Documented by: Magnesium Hydroxide (Magnesium Hydroxide 30 Ml Udc) 30 ml PO DAILY PRN PRN PRN Reason: Constipation Melatonin (Melatonin 3 Mg Tablet) 3 mg PO QHS PRN PRN PRN Reason: INSOMNIA Morphine Sulfate (Morphine 2 Mg/Ml Syringe) 2 mg IV Q3H PRN PRN PRN Reason: Pain Score 6-10 Last Admin: 07/24/20 21:57 Dose: 2 mg Documented by: Nitroglycerin (Nitroglycerin (Inpatient Use) 0.4 Mg Tab.Subl) 0.4 mg SUBLINGUAL Q5M PRN PRN Reason: CARDIAC/CHEST PAIN Ondansetron HCl (Ondansetron 4 Mg/2 Ml Vial) 4 mg IV Q8H PRN PRN PRN Reason: NAUSEA/VOMITING Oxycodone HCl (Oxycodone 5 Mg Tablet) 5 mg PO Q4H PRN PRN PRN Reason: Pain Score 4-5 Pantoprazole Sodium (Pantoprazole Sodium 40 Mg Tablet) 40 mg PO DAILY [facility] Prochlorperazine Edisylate (Prochlorperazine 10 Mg/2 Ml Vial) 5 mg IV Q4H PRN PRN PRN Reason: Breakthrough Nausea/Vomiting Psyllium Hydrophilic Mucilloid (Psyllium 1 Packet) 1 packet PO DAILY PRN PRN PRN Reason: Constipation Senna/Docusate Sodium (Senna/Docusate Sodium 1 Tablet) 2 tablet PO BID PRN PRN PRN Reason: Constipation Sodium Chloride (0.9% Saline Lock 10 Ml Syringe) 10 - 40 ml IV UD PRN PRN Reason: SALINE FLUSH Last Admin: 07/24/20 21:21 Dose: 10 ml Documented by: Tamsulosin HCl (Tamsulosin Hcl 0.4 Mg Capsule) 0.8 mg PO QHS [facility] Last Admin: 07/24/20 21:51 Dose: 0.8 mg Documented by: Throat Lozenges (Benzocaine/Menthol 1 Lozenge) 1 lozenge MUCOUS MEM Q2H PRN PRN PRN Reason: SORE THROAT STROKE Vital Signs/Narrative: Vital Signs Pulse 07/25/20 06:59 65 07/25/20 05:33 65 07/25/20 04:00 65 Medical Necessity - Tobacco Use Smoking Status: Former smoker Tobacco Use: Non-smoker Assessment/Plan All Active Problems (Last Reviewed 06/29/20 @ 09:18 by Leola Bhagat) Problem with dialysis access (Acute) COVID-19 (Acute) NSTEMI (non-ST elevated myocardial infarction) (Acute) Aspiration into airway (Ruled-out) Frequent falls (Acute) Generalized weakness (Acute) Debility (Acute) Frequent falls (Acute) #COVID 19 infection Currently on p.o. dexamethasone 6 mg daily ID on board. Started on remdesivir. Titrate oxygen to maintain saturation above 90%. Breathing treatment with bronchodilators. # Acute hypoxic respiratory insufficiency due to COVID as above #Nonstemi Troponin peaked at 2.6 and trended down slightly to 2.02. On aspirin and heparin drip as well as high intensity statin and carvedilol Cardiology consulted. Await recs. # type 2 diabetes mellitus: on lantus 10IU daily. ISS. accuchecks ACHS # ESRD on HD: Dialysis Wednesdays and Fridays. Nephrology on board. # CAD s/p CABG: On aspirin, beta-ginny and statin. # history of subdural hematoma: on keppra # PAD s/p bilateral stents: #GERD: On PPI #Hypertension: On Norvasc, and Coreg with IV hydralazine as needed. DVT prophylaxis; on heparin drip Inpatient E&M: 92009 [facility] L[facility]
[2020-07-25 07:31] LABS: Blood Gas Specimen Type VEN; VBG BASE EXCESS 8 mmol/L (-1.0-3.5); VBG Bicarbonate 33 mmol/L (22-26); VBG PO2 33 mmHg (25-40); VBG SO2 64 % (50-70); VBG TCO2 34 mmol/L (23-33); VBG pCO2 48.2 mmHg (41-51); VBG pH 7.44 (7.32-7.42)
[2020-07-25] MEDS: Carvedilol 12.5 MG Tablet PO ×2 (08:16→23:14)
[2020-07-25] MEDS: Pantoprazole Sodium 40 MG Tablet PO (08:16)
[2020-07-25] MEDS: Calcium Acetate 667 MG Capsule PO ×3 (08:16→16:28)
[2020-07-25] MEDS: Aspirin 81 MG TAB.CHEW PO (08:16)
[2020-07-25] MEDS: amLODIPine 5 MG Tablet PO (08:17)
[2020-07-25] MEDS: levETIRAcetam 500 MG Tablet PO ×2 (08:17→20:51)
[2020-07-25] MEDS: Finasteride 5 MG Tablet PO (08:17)
[2020-07-25] MEDS: Morphine 2 MG/ML Syringe IV (08:23)
[2020-07-25 08:46] LABS: Bedside Glucose 77 mg/dL (70-110)
--- NOTE | 2020-07-25 09:18 | CON.PCM_ITS ---
Consultation - Renal 07/25/20 PCP/ Referring MD: Requesting physician: [] Primary care physician: Dr. Paul Martinez MD Reason for Consultation:: esrd - History of Present Illness History of Present Illness: The patient is a 69 year old M was medical history of coronary artery disease s/p CABG x3 vessels hypertension dyslipidemia CVA subdural hemorrhage seizure disorder PAD status bilateral lower extremity angioplasty GERD ESRD on hemodialysis BPH diabetes mellitus type 2 who presented yesterday with a chief complaint of fatigue weakness debility shortness of breath some cough and some mild confusion for 3 days prior to admission. She also was found to have a fever of 101 . He had AV fistula surgery on 07 18. Denies chest pain his WBC count was 8.2. - Allergies Allergies: Allergies No Known Allergies Allergy (Verified 07/24/20 14:06) - Current Medications Current Medications: Current Medications Acetaminophen (Acetaminophen 325 Mg Tablet) 650 mg PO Q6H PRN PRN PRN Reason: Pain Score 1-10/Temp > 100.7 F Al Hydroxide/Mg Hydroxide (Mag Hydrox/Al Hydrox/Simeth 30 Ml Udc) 30 ml PO Q6H PRN PRN PRN Reason: Gastric Burning Albuterol Sulfate (Albuterol Sulfate 8 Gm Inhaler (60 Puffs)) 1 puff INHALATION Q4H PRN PRN PRN Reason: Dyspnea, wheezing Amlodipine Besylate (Amlodipine 5 Mg Tablet) 5 mg PO DAILY [facility] Last Admin: 07/25/20 08:17 Dose: 5 mg Documented by: Aspirin (Aspirin 81 Mg Tab.Chew) 81 mg PO DAILY@0800 [facility] Last Admin: 07/25/20 08:16 Dose: 81 mg Documented by: Atorvastatin Calcium (Atorvastatin Calcium 80 Mg Tablet) 80 mg PO QHS [facility] Last Admin: 07/24/20 21:51 Dose: 80 mg Documented by: Calcium Acetate (Calcium Acetate 667 Mg Capsule) 667 mg PO TIDCM [facility] Last Admin: 07/25/20 08:16 Dose: 667 mg Documented by: Carvedilol (Carvedilol 12.5 Mg Tablet) 12.5 mg PO BID [facility] Last Admin: 07/25/20 08:16 Dose: 12.5 mg Documented by: Finasteride (Finasteride 5 Mg Tablet) 5 mg PO DAILY [facility] Last Admin: 07/25/20 08:17 Dose: 5 mg Documented by: Guaifenesin (Guaifenesin 10 Ml Udc (200mg/10ml)) 20 ml PO Q4H PRN PRN PRN Reason: COUGH Heparin Sodium (Porcine) (Heparin Injection (Vial) 5,000 Unit/Ml Vial) 0 unit IV UD PRN; Protocol PRN Reason: dose adjustment Hydralazine HCl (Hydralazine 25 Mg Tablet) 25 mg PO TID [facility] Last Admin: 07/25/20 05:33 Dose: 25 mg Documented by: Hydralazine HCl (Hydralazine 20 Mg/Ml Vial) 10 mg IV Q4H PRN PRN PRN Reason: SBP > 160 Sodium Chloride () 1,000 mls @ 60 mls/hr IV .[id number] [facility] Last Admin: 07/24/20 21:15 Dose: 60 mls/hr Documented by: Heparin Sodium/Dextrose () 25,000 units in 250 mls @ 10 mls/hr IV .Q25H [facility]; Protocol Last Admin: 07/24/20 22:05 Dose: Not Given Documented by: Sodium Chloride () 250 mls @ 15 mls/hr IV .[id number] PRN PRN Reason: Saline Flush Sodium Chloride () 250 mls @ 15 mls/hr IV .[id number] PRN PRN Reason: Additional IVPB Infusion Insulin Glargine (Insulin Glargine 100 Units/Ml Pen) 10 units SC 0700 [facility] Insulin Human Lispro (Insulin Lispro 100 Unit/Ml Insuln.Pen) 0 unit SC ACHS [facility]; Protocol Last Admin: 07/25/20 08:03 Dose: Not Given Documented by: Levetiracetam (Levetiracetam 500 Mg Tablet) 500 mg PO BID [facility] Last Admin: 07/25/20 08:17 Dose: 500 mg Documented by: Magnesium Hydroxide (Magnesium Hydroxide 30 Ml Udc) 30 ml PO DAILY PRN PRN PRN Reason: Constipation Melatonin (Melatonin 3 Mg Tablet) 3 mg PO QHS PRN PRN PRN Reason: INSOMNIA Morphine Sulfate (Morphine 2 Mg/Ml Syringe) 2 mg IV Q3H PRN PRN PRN Reason: Pain Score 6-10 Last Admin: 07/25/20 08:23 Dose: 2 mg Documented by: Nitroglycerin (Nitroglycerin (Inpatient Use) 0.4 Mg Tab.Subl) 0.4 mg SUBLINGUAL Q5M PRN PRN Reason: CARDIAC/CHEST PAIN Ondansetron HCl (Ondansetron 4 Mg/2 Ml Vial) 4 mg IV Q8H PRN PRN PRN Reason: NAUSEA/VOMITING Oxycodone HCl (Oxycodone 5 Mg Tablet) 5 mg PO Q4H PRN PRN PRN Reason: Pain Score 4-5 Pantoprazole Sodium (Pantoprazole Sodium 40 Mg Tablet) 40 mg PO DAILY [facility] Last Admin: 07/25/20 08:16 Dose: 40 mg Documented by: Prochlorperazine Edisylate (Prochlorperazine 10 Mg/2 Ml Vial) 5 mg IV Q4H PRN PRN PRN Reason: Breakthrough Nausea/Vomiting Psyllium Hydrophilic Mucilloid (Psyllium 1 Packet) 1 packet PO DAILY PRN PRN PRN Reason: Constipation Senna/Docusate Sodium (Senna/Docusate Sodium 1 Tablet) 2 tablet PO BID PRN PRN PRN Reason: Constipation Sodium Chloride (0.9% Saline Lock 10 Ml Syringe) 10 - 40 ml IV UD PRN PRN Reason: SALINE FLUSH Last Admin: 07/24/20 21:21 Dose: 10 ml Documented by: Tamsulosin HCl (Tamsulosin Hcl 0.4 Mg Capsule) 0.8 mg PO QHS [facility] Last Admin: 07/24/20 21:51 Dose: 0.8 mg Documented by: Throat Lozenges (Benzocaine/Menthol 1 Lozenge) 1 lozenge MUCOUS MEM Q2H PRN PRN PRN Reason: SORE THROAT - Past Medical History Past Medical History (Chronic Problems): Chronic Problems (Last Reviewed 06/29/20 @ 09:18 by Leola Bhagat) End-stage renal disease on hemodialysis (Chronic) End stage renal disease on dialysis (Chronic) Depression (Chronic) BPH with obstruction/lower urinary tract symptoms (Chronic) Left ventricular hypertrophy (Chronic) Diverticulosis (Chronic) Tobacco dependence in remission (Chronic) smoked for only 3 hours hx of APLL (Chronic) Left leg- 05/16/19 left superficial femoral artery and left popliteal artery angioplasty by Dr. Kamara History of angioplasty of peripheral vessel (Chronic ~2017) 01/01/16 L Peroneal and L superficial femoral A. angioplasty by Dr. Kamara HTN (hypertension) (Chronic) History of stroke (Chronic) Left parietal in August of 2017 Peripheral vascular disease (Chronic) BL LE PVD - status post angioplasty on 3 occasions Status post coronary artery bypass graft (Chronic) 3 vessel CABG per pt in 2014? Diabetes mellitus, type 2 (Chronic) historically poorly controlled due to non-compliance GERD (gastroesophageal reflux disease) (Chronic) Hyperlipidemia (Chronic) CAD (coronary artery disease) (Chronic) - Past Surgical History Surgical History: coronary bypass surgery, - - Benign soft tissue tumor resection, CABG x 3, PCI x 1, BL tunnel surgery, bilateral lower extremity venous intervention unclear type. - Social History Smoking Status: Former smoker Alcohol: None Drugs: None - Family History Maternal Family History: Family History (Last Reviewed 06/29/20 @ 09:18 by Leola Bhagat) Brother Diabetes Mother Hypertension Daughter Diabetes History Items: - - Patient notes that his mother was healthy and denies any history of heart disease, diabetes or cancer, passed at age 93. Paternal Family History: Family History (Last Reviewed 06/29/20 @ 09:18 by Leola Bhagat) Brother Diabetes Mother Hypertension Daughter Diabetes History Items: - - Patient notes that his father was healthy with no history of heart disease, diabetes or cancer, passed at age 89 secondary to brain aneurysm rupture. Patient Problems: Active and Suspected Problems (Last Reviewed 06/29/20 @ 09:18 by Leola Bhagat) COVID-19 (Acute) NSTEMI (non-ST elevated myocardial infarction) (Acute) Objective: PE deferred to preserve PPE and prevent further transmission of covid-19 - Physical Exam Vitals/I&O's: Vital Signs Temp Pulse Resp BP Pulse Ox 99.3 F H 64 16 125/58 H 97 07/25/20 08:08 07/25/20 08:08 07/25/20 08:08 07/25/20 08:08 07/25/20 08:33 Oxygen Flow Rate (L/min) 2 Oxygen Delivery Method Nasal Cannula Weight: 65.5 kg Body Mass Index (BMI) 21.5 Finger Stick Blood Glucose 480 Intake and Output for Last 24 Hours 07/23/20 07/24/20 07/25/20 23:59 23:59 23:59 Intake Total 32.83 / 32.83 34.65 / 34.65 Balance 32.83 / 32.83 34.65 / 34.65 Microbiology Past 72 Hours 07/24/20 15:00 Mucosa - Nasopharyngeal Respiratory Panel (PCR) - Final Laboratory Results 07/24/20 14:20: WBC 8.2, RBC 3.56 L, Hgb 10.7 L, Hct 33.2 L, MCV 93.3, MCH 30.1, MCHC 32.2, RDW Std Deviation 51.9 H, RDW Coeff of Arturo 15.2 H, Plt Count 230, MPV 9.6, Immature Gran % (Auto) 0.500, Neut % (Auto) 71.8 H, Lymph % (Auto) 12.0 L, Pacific % (Auto) 13.0 H, Eos % (Auto) 2.2, Baso % (Auto) 0.5, Absolute Neuts (auto) 5.9, Absolute Lymphs (auto) 0.98, Nucleated RBC % 0 07/24/20 15:00: Sodium 139, Potassium 3.7, Chloride 99, Carbon Dioxide 34.0 H, Anion Gap 6, BUN 37 H, Creatinine 6.26 H, Estim Creat Clear Calc 10.47, Est GFR (MDRD) Af Amer 11 L, Est GFR (MDRD) Non-Af 9 L, BUN/Creatinine Ratio 5.9 L, Glucose 91, Calcium 8.9, Total Bilirubin 0.40, AST 62 H, ALT 17, Alkaline Phosphatase 57, Troponin I 1.880 H*, Total Protein 7.2, Albumin 3.3, Globulin 3.9, Albumin/Globulin Ratio 0.8 L 07/24/20 15:00: Procalcitonin 0.46 H 07/24/20 15:00: Acetone Level NEGATIVE 07/24/20 15:00: COVID-19 (RACHEL) Positive 07/24/20 15:00: APTT 36.0 07/24/20 15:00: PT 12.2, INR 1.0 07/24/20 16:28: Specimen Type JUWAN, VBG pH 7.44 H, VBG pO2 33, VBG HCO3 33 H, VBG Total CO2 34 H, VBG O2 Sat (Calc) 64, VBG Base Excess 8 H, POC Mix VBG pCO2 Pt Tmp 48.2 07/24/20 16:55: Ammonia 32.0 07/24/20 17:45: Troponin I 2.060 H* 07/24/20 17:45: Magnesium 2.0, Ferritin 261, Lactate Dehydrogenase 274 H, C- React Prot Ext Range 17.90 H 07/24/20 21:23: POC Glucose 91 07/24/20 21:55: APTT 240.3 H*, D-Dimer Quant (PE/DVT) 2.21 H* 07/24/20 21:55: Procalcitonin 0.64 H 07/24/20 21:55: Troponin I 2.620 H* 07/25/20 04:54: WBC 5.5, RBC 3.15 L, Hgb 9.4 L, Hct 30.6 L, MCV 97.1 H, MCH 29.8, MCHC 30.7 L, RDW Std Deviation 53.7 H, RDW Coeff of Arturo 15.2 H, Plt Count 184, MPV 9.6, Immature Gran % (Auto) 0.500, Neut % (Auto) 57.3, Lymph % (Auto) 23.3, Pacific % (Auto) 16.6 H, Eos % (Auto) 1.8, Baso % (Auto) 0.5, Absolute Neuts (auto) 3.2, Absolute Lymphs (auto) 1.29, Nucleated RBC % 0 07/25/20 04:54: Sodium 136, Potassium 4.3, Chloride 99, Carbon Dioxide 27.0, Anion Gap 10, BUN 54 H, Creatinine 8.07 H*, Estim Creat Clear Calc 7.62, Est GFR (MDRD) Af Amer 9 L, Est GFR (MDRD) Non-Af 7 L, BUN/Creatinine Ratio 6.7 L, Glucose 79, Calcium 8.1 L, Total Bilirubin 0.40, AST 67 H, ALT 21, Alkaline Phosphatase 42 L, Total Protein 6.1 L, Albumin 2.7 L, Globulin 3.4, Albumin/Globulin Ratio 0.8 L, Triglycerides 142, Cholesterol 115, LDL Cholesterol 46, VLDL Cholesterol 28, HDL Cholesterol 41 07/25/20 04:54: Troponin I 2.040 H* 07/25/20 04:54: APTT 88.9 H 07/25/20 08:03: POC Glucose 77 Current Medications Acetaminophen (Acetaminophen 325 Mg Tablet) 650 mg PO Q6H PRN PRN PRN Reason: Pain Score 1-10/Temp > 100.7 F Al Hydroxide/Mg Hydroxide (Mag Hydrox/Al Hydrox/Simeth 30 Ml Udc) 30 ml PO Q6H PRN PRN PRN Reason: Gastric Burning Albuterol Sulfate (Albuterol Sulfate 8 Gm Inhaler (60 Puffs)) 1 puff INHALATION Q4H PRN PRN PRN Reason: Dyspnea, wheezing Amlodipine Besylate (Amlodipine 5 Mg Tablet) 5 mg PO DAILY [facility] Last Admin: 07/25/20 08:17 Dose: 5 mg Documented by: Aspirin (Aspirin 81 Mg Tab.Chew) 81 mg PO DAILY@0800 [facility] Last Admin: 07/25/20 08:16 Dose: 81 mg Documented by: Atorvastatin Calcium (Atorvastatin Calcium 80 Mg Tablet) 80 mg PO QHS [facility] Last Admin: 07/24/20 21:51 Dose: 80 mg Documented by: Calcium Acetate (Calcium Acetate 667 Mg Capsule) 667 mg PO TIDCM [facility] Last Admin: 07/25/20 08:16 Dose: 667 mg Documented by: Carvedilol (Carvedilol 12.5 Mg Tablet) 12.5 mg PO BID [facility] Last Admin: 07/25/20 08:16 Dose: 12.5 mg Documented by: Finasteride (Finasteride 5 Mg Tablet) 5 mg PO DAILY [facility] Last Admin: 07/25/20 08:17 Dose: 5 mg Documented by: Guaifenesin (Guaifenesin 10 Ml Udc (200mg/10ml)) 20 ml PO Q4H PRN PRN PRN Reason: COUGH Heparin Sodium (Porcine) (Heparin Injection (Vial) 5,000 Unit/Ml Vial) 0 unit IV UD PRN; Protocol PRN Reason: dose adjustment Hydralazine HCl (Hydralazine 25 Mg Tablet) 25 mg PO TID [facility] Last Admin: 07/25/20 05:33 Dose: 25 mg Documented by: Hydralazine HCl (Hydralazine 20 Mg/Ml Vial) 10 mg IV Q4H PRN PRN PRN Reason: SBP > 160 Sodium Chloride () 1,000 mls @ 60 mls/hr IV .[id number] [facility] Last Admin: 07/24/20 21:15 Dose: 60 mls/hr Documented by: Heparin Sodium/Dextrose () 25,000 units in 250 mls @ 10 mls/hr IV .Q25H [facility]; Protocol Last Admin: 07/24/20 22:05 Dose: Not Given Documented by: Sodium Chloride () 250 mls @ 15 mls/hr IV .[id number] PRN PRN Reason: Saline Flush Sodium Chloride () 250 mls @ 15 mls/hr IV .[id number] PRN PRN Reason: Additional IVPB Infusion Insulin Glargine (Insulin Glargine 100 Units/Ml Pen) 10 units SC 0700 [facility] Insulin Human Lispro (Insulin Lispro 100 Unit/Ml Insuln.Pen) 0 unit SC ACHS [facility]; Protocol Last Admin: 07/25/20 08:03 Dose: Not Given Documented by: Levetiracetam (Levetiracetam 500 Mg Tablet) 500 mg PO BID [facility] Last Admin: 07/25/20 08:17 Dose: 500 mg Documented by: Magnesium Hydroxide (Magnesium Hydroxide 30 Ml Udc) 30 ml PO DAILY PRN PRN PRN Reason: Constipation Melatonin (Melatonin 3 Mg Tablet) 3 mg PO QHS PRN PRN PRN Reason: INSOMNIA Morphine Sulfate (Morphine 2 Mg/Ml Syringe) 2 mg IV Q3H PRN PRN PRN Reason: Pain Score 6-10 Last Admin: 07/25/20 08:23 Dose: 2 mg Documented by: Nitroglycerin (Nitroglycerin (Inpatient Use) 0.4 Mg Tab.Subl) 0.4 mg SUBLINGUAL Q5M PRN PRN Reason: CARDIAC/CHEST PAIN Ondansetron HCl (Ondansetron 4 Mg/2 Ml Vial) 4 mg IV Q8H PRN PRN PRN Reason: NAUSEA/VOMITING Oxycodone HCl (Oxycodone 5 Mg Tablet) 5 mg PO Q4H PRN PRN PRN Reason: Pain Score 4-5 Pantoprazole Sodium (Pantoprazole Sodium 40 Mg Tablet) 40 mg PO DAILY [facility] Last Admin: 07/25/20 08:16 Dose: 40 mg Documented by: Prochlorperazine Edisylate (Prochlorperazine 10 Mg/2 Ml Vial) 5 mg IV Q4H PRN PRN PRN Reason: Breakthrough Nausea/Vomiting Psyllium Hydrophilic Mucilloid (Psyllium 1 Packet) 1 packet PO DAILY PRN PRN PRN Reason: Constipation Senna/Docusate Sodium (Senna/Docusate Sodium 1 Tablet) 2 tablet PO BID PRN PRN PRN Reason: Constipation Sodium Chloride (0.9% Saline Lock 10 Ml Syringe) 10 - 40 ml IV UD PRN PRN Reason: SALINE FLUSH Last Admin: 07/24/20 21:21 Dose: 10 ml Documented by: Tamsulosin HCl (Tamsulosin Hcl 0.4 Mg Capsule) 0.8 mg PO QHS [facility] Last Admin: 07/24/20 21:51 Dose: 0.8 mg Documented by: Throat Lozenges (Benzocaine/Menthol 1 Lozenge) 1 lozenge MUCOUS MEM Q2H PRN PRN PRN Reason: SORE THROAT Assessment/Plan All Active Problems (Last Reviewed 06/29/20 @ 09:18 by Leola Bhagat) Problem with dialysis access (Acute) COVID-19 (Acute) NSTEMI (non-ST elevated myocardial infarction) (Acute) Aspiration into airway (Ruled-out) Frequent falls (Acute) Generalized weakness (Acute) Debility (Acute) Frequent falls (Acute) ESRD continue Friday dialysis for dialysis tomorrow.Follow up blood cx Anemia monitor RORY with HD HTN continue meds controlled CKD MBD binders monitor ca phos COVID-19 per primary
--- NOTE | 2020-07-25 09:25 | CASEMGMT ---
RN CM Note: Attempted to call patient in room, no answer. Attempted call to daughter Dinorah Mosquera who lives with pt, no answer. Voice messaging had name identifier so message left with call back information to contact RN ANNA. Jace CHAUHAN RN ACM
[2020-07-25] MEDS: dexAMETHasone 4 MG Tablet 6 MG PO (11:12)
--- NOTE | 2020-07-25 11:34 | PCM.HP.ID ---
Problem List (1) COVID-19 Status: Acute Reason for Consult: covid Consulted by: Dr. Sotomayor History of Present Illness: The patient is a 69 year old M with ESRD, got sick 07/21 while at HD. Reports is in hospital in [place] with nervous breakdown. C/o cough, dyspnea, loss of appetite, not feeling well. No change in taste or smell, no fever. Came to ED, covid (+), admitted on hep gtt for elevated trop. Full ROS performed and neg except as noted above. - Medical History Past Medical History (Chronic Problems): Chronic Problems (Last Reviewed 06/29/20 @ 09:18 by Leola Bhagat) End-stage renal disease on hemodialysis (Chronic) End stage renal disease on dialysis (Chronic) Depression (Chronic) BPH with obstruction/lower urinary tract symptoms (Chronic) Left ventricular hypertrophy (Chronic) Diverticulosis (Chronic) Tobacco dependence in remission (Chronic) smoked for only 3 hours hx of APLL (Chronic) Left leg- 05/16/19 left superficial femoral artery and left popliteal artery angioplasty by Dr. Kamara History of angioplasty of peripheral vessel (Chronic ~2016) 01/01/16 L Peroneal and L superficial femoral A. angioplasty by Dr. Kamara HTN (hypertension) (Chronic) History of stroke (Chronic) Left parietal in August of 2017 Peripheral vascular disease (Chronic) BL LE PVD - status post angioplasty on 3 occasions Status post coronary artery bypass graft (Chronic) 3 vessel CABG per pt in 2014? Diabetes mellitus, type 2 (Chronic) historically poorly controlled due to non-compliance GERD (gastroesophageal reflux disease) (Chronic) Hyperlipidemia (Chronic) CAD (coronary artery disease) (Chronic) Allergies/Adverse Reactions: Allergies No Known Allergies Allergy (Verified 07/24/20 14:06) Home Medications: Ambulatory Orders Medication Instructions Recorded Finasteride 5 mg PO DAILY 07/30/19 Amlodipine [Norvasc] 5 mg PO DAILY 05/26/20 Aspirin [Aspirin, Baby] 81 mg PO DAILY@0800 05/26/20 Atorvastatin Calcium 80 mg PO QHS 05/26/20 levETIRAcetam tablet [Keppra 500 mg PO BID 05/26/20 tablet] Carvedilol [Coreg] 12.5 mg PO BID 05/27/20 Insulin Glargine,Hum.rec.anlog 10 unit SQ BREAKFAST 06/07/20 [Basaglar Kwikpen U-100] Fenofibrate,Micronized 67 mg PO DAILY 06/08/20 [Fenofibrate] Calcium Acetate [Phoslo Gel Cap] 667 mg PO TIDCM 07/12/20 Hydralazine HCl 25 mg PO TID 07/24/20 Pantoprazole Sodium [Protonix] 40 mg PO DAILY 07/24/20 Tamsulosin HCl [Flomax] 0.8 mg PO QHS 07/24/20 - Social History SMOKING STATUS:: Former smoker Vital Signs Temp Pulse Resp BP Pulse Ox 97.9 F 62 16 110/53 L 94 07/25/20 11:30 07/25/20 11:30 07/25/20 11:30 07/25/20 11:30 07/25/20 11:30 Oxygen Flow Rate (L/min) 2 Oxygen Delivery Method Nasal Cannula Weight: 65.5 kg Body Mass Index (BMI) 21.5 Finger Stick Blood Glucose 480 Microbiology Past 72 Hours 07/24/20 15:00 Respiratory Panel (PCR) - Final Mucosa - Nasopharyngeal Laboratory Tests Past 24 Hrs 07/24/20 07/24/20 07/24/20 14:20 15:00 15:00 WBC 8.2 RBC 3.56 L Hgb 10.7 L Hct 33.2 L MCV 93.3 MCH 30.1 MCHC 32.2 RDW Std Deviation 51.9 H RDW Coeff of Arturo 15.2 H Plt Count 230 MPV 9.6 Immature Gran % (Auto) 0.500 Neut % (Auto) 71.8 H Lymph % (Auto) 12.0 L [place] % (Auto) 13.0 H Eos % (Auto) 2.2 Baso % (Auto) 0.5 Absolute Neuts (auto) 5.9 Absolute Lymphs (auto) 0.98 Nucleated RBC % 0 PT INR APTT D-Dimer Quant (PE/DVT) Specimen Type VBG pH VBG pO2 VBG HCO3 VBG Total CO2 VBG O2 Sat (Calc) VBG Base Excess POC Mix VBG pCO2 Pt Tmp Sodium 139 Potassium 3.7 Chloride 99 Carbon Dioxide 34.0 H Anion Gap 6 BUN 37 H Creatinine 6.26 H Estim Creat Clear Calc 10.47 Est GFR (MDRD) Af Amer 11 L Est GFR (MDRD) Non-Af 9 L BUN/Creatinine Ratio 5.9 L Glucose 91 Calcium 8.9 Magnesium Ferritin Total Bilirubin 0.40 AST 62 H ALT 17 Alkaline Phosphatase 57 Ammonia Lactate Dehydrogenase Troponin I 1.880 H* C-React Prot Ext Range Total Protein 7.2 Albumin 3.3 Globulin 3.9 Albumin/Globulin Ratio 0.8 L Triglycerides Cholesterol LDL Cholesterol VLDL Cholesterol HDL Cholesterol Procalcitonin 0.46 H Acetone Level COVID-19 (RACHEL) 07/24/20 07/24/20 07/24/20 15:00 15:00 15:00 WBC RBC Hgb Hct MCV MCH MCHC RDW Std Deviation RDW Coeff of Arturo Plt Count MPV Immature Gran % (Auto) Neut % (Auto) Lymph % (Auto) [place] % (Auto) Eos % (Auto) Baso % (Auto) Absolute Neuts (auto) Absolute Lymphs (auto) Nucleated RBC % PT INR APTT 36.0 D-Dimer Quant (PE/DVT) Specimen Type VBG pH VBG pO2 VBG HCO3 VBG Total CO2 VBG O2 Sat (Calc) VBG Base Excess POC Mix VBG pCO2 Pt Tmp Sodium Potassium Chloride Carbon Dioxide Anion Gap BUN Creatinine Estim Creat Clear Calc Est GFR (MDRD) Af Amer Est GFR (MDRD) Non-Af BUN/Creatinine Ratio Glucose Calcium Magnesium Ferritin Total Bilirubin AST ALT Alkaline Phosphatase Ammonia Lactate Dehydrogenase Troponin I C-React Prot Ext Range Total Protein Albumin Globulin Albumin/Globulin Ratio Triglycerides Cholesterol LDL Cholesterol VLDL Cholesterol HDL Cholesterol Procalcitonin Acetone Level NEGATIVE COVID-19 (RACHEL) Positive 07/24/20 07/24/20 07/24/20 15:00 16:28 16:55 WBC RBC Hgb Hct MCV MCH MCHC RDW Std Deviation RDW Coeff of Arturo Plt Count MPV Immature Gran % (Auto) Neut % (Auto) Lymph % (Auto) [place] % (Auto) Eos % (Auto) Baso % (Auto) Absolute Neuts (auto) Absolute Lymphs (auto) Nucleated RBC % PT 12.2 INR 1.0 APTT D-Dimer Quant (PE/DVT) Specimen Type JUWAN VBG pH 7.44 H VBG pO2 33 VBG HCO3 33 H VBG Total CO2 34 H VBG O2 Sat (Calc) 64 VBG Base Excess 8 H POC Mix VBG pCO2 Pt Tmp 48.2 Sodium Potassium Chloride Carbon Dioxide Anion Gap BUN Creatinine Estim Creat Clear Calc Est GFR (MDRD) Af Amer Est GFR (MDRD) Non-Af BUN/Creatinine Ratio Glucose Calcium Magnesium Ferritin Total Bilirubin AST ALT Alkaline Phosphatase Ammonia 32.0 Lactate Dehydrogenase Troponin I C-React Prot Ext Range Total Protein Albumin Globulin Albumin/Globulin Ratio Triglycerides Cholesterol LDL Cholesterol VLDL Cholesterol HDL Cholesterol Procalcitonin Acetone Level COVID-19 (RACHEL) 07/24/20 07/24/20 07/24/20 17:45 17:45 21:55 WBC RBC Hgb Hct MCV MCH MCHC RDW Std Deviation RDW Coeff of Arturo Plt Count MPV Immature Gran % (Auto) Neut % (Auto) Lymph % (Auto) [place] % (Auto) Eos % (Auto) Baso % (Auto) Absolute Neuts (auto) Absolute Lymphs (auto) Nucleated RBC % PT INR APTT 240.3 H* D-Dimer Quant (PE/DVT) 2.21 H* Specimen Type VBG pH VBG pO2 VBG HCO3 VBG Total CO2 VBG O2 Sat (Calc) VBG Base Excess POC Mix VBG pCO2 Pt Tmp Sodium Potassium Chloride Carbon Dioxide Anion Gap BUN Creatinine Estim Creat Clear Calc Est GFR (MDRD) Af Amer Est GFR (MDRD) Non-Af BUN/Creatinine Ratio Glucose Calcium Magnesium 2.0 Ferritin 261 Total Bilirubin AST ALT Alkaline Phosphatase Ammonia Lactate Dehydrogenase 274 H Troponin I 2.060 H* C-React Prot Ext Range 17.90 H Total Protein Albumin Globulin Albumin/Globulin Ratio Triglycerides Cholesterol LDL Cholesterol VLDL Cholesterol HDL Cholesterol Procalcitonin Acetone Level COVID-19 (RACHEL) 07/24/20 07/24/20 07/25/20 21:55 21:55 04:54 WBC 5.5 RBC 3.15 L Hgb 9.4 L Hct 30.6 L MCV 97.1 H MCH 29.8 MCHC 30.7 L RDW Std Deviation 53.7 H RDW Coeff of Arturo 15.2 H Plt Count 184 MPV 9.6 Immature Gran % (Auto) 0.500 Neut % (Auto) 57.3 Lymph % (Auto) 23.3 [place] % (Auto) 16.6 H Eos % (Auto) 1.8 Baso % (Auto) 0.5 Absolute Neuts (auto) 3.2 Absolute Lymphs (auto) 1.29 Nucleated RBC % 0 PT INR APTT D-Dimer Quant (PE/DVT) Specimen Type VBG pH VBG pO2 VBG HCO3 VBG Total CO2 VBG O2 Sat (Calc) VBG Base Excess POC Mix VBG pCO2 Pt Tmp Sodium Potassium Chloride Carbon Dioxide Anion Gap BUN Creatinine Estim Creat Clear Calc Est GFR (MDRD) Af Amer Est GFR (MDRD) Non-Af BUN/Creatinine Ratio Glucose Calcium Magnesium Ferritin Total Bilirubin AST ALT Alkaline Phosphatase Ammonia Lactate Dehydrogenase Troponin I 2.620 H* C-React Prot Ext Range Total Protein Albumin Globulin Albumin/Globulin Ratio Triglycerides Cholesterol LDL Cholesterol VLDL Cholesterol HDL Cholesterol Procalcitonin 0.64 H Acetone Level COVID-19 (RACHEL) 07/25/20 07/25/20 07/25/20 04:54 04:54 04:54 WBC RBC Hgb Hct MCV MCH MCHC RDW Std Deviation RDW Coeff of Arturo Plt Count MPV Immature Gran % (Auto) Neut % (Auto) Lymph % (Auto) [place] % (Auto) Eos % (Auto) Baso % (Auto) Absolute Neuts (auto) Absolute Lymphs (auto) Nucleated RBC % PT INR APTT 88.9 H D-Dimer Quant (PE/DVT) Specimen Type VBG pH VBG pO2 VBG HCO3 VBG Total CO2 VBG O2 Sat (Calc) VBG Base Excess POC Mix VBG pCO2 Pt Tmp Sodium 136 Potassium 4.3 Chloride 99 Carbon Dioxide 27.0 Anion Gap 10 BUN 54 H Creatinine 8.07 H* Estim Creat Clear Calc 7.62 Est GFR (MDRD) Af Amer 9 L Est GFR (MDRD) Non-Af 7 L BUN/Creatinine Ratio 6.7 L Glucose 79 Calcium 8.1 L Magnesium Ferritin Total Bilirubin 0.40 AST 67 H ALT 21 Alkaline Phosphatase 42 L Ammonia Lactate Dehydrogenase Troponin I 2.040 H* C-React Prot Ext Range Total Protein 6.1 L Albumin 2.7 L Globulin 3.4 Albumin/Globulin Ratio 0.8 L Triglycerides 142 Cholesterol 115 LDL Cholesterol 46 VLDL Cholesterol 28 HDL Cholesterol 41 Procalcitonin Acetone Level COVID-19 (RACHEL) - Other Studies Radiology: [] reviewed Other Studies: [] Route of nutrition/ use of supplements: [] Nutritional Intake: [] IV Site: [] Linn Catheter: [] - Physical Exam General: Alert, Oriented x3, Cooperative, No apparent distress HEENT: Atraumatic, PERRLA, EOMI Neck: Supple, No Nodes Lungs: Clear to auscultation, Diminished Cardiovascular: Regular rate, Regular Rhythm Abdomen: Soft, Non Tender, Non-Distended Extremities: No edema Skin: No rashes IV Site: Peripheral, without redness Musculoskeletal: No Tenderness to Palpation of Joints or Extremities Neurological: Cranial nerves II-XII grossly intact - Assessment/Plan Antibiotics: [] Assessment/Plan: [] Active and Suspected Problems (Last Reviewed 06/29/20 @ 09:18 by Leola Bhagat) COVID-19 (Acute) NSTEMI (non-ST elevated myocardial infarction) (Acute) covid with hypoxia, elevated trop, d-dimer 2.1, ESRD - will start dex and remdesivir. On hep gtt. Sx started 07/21/20. Will follow, thank you
--- NOTE | 2020-07-25 11:36 | CASEMGMT ---
Addendum entered by Aguilar Núñez 07/25/20 13:21: COVID test faxed to [facility] @ . Message left @ [facility] facility to update. Original Note: RN ANNA Assessment Intro role of CM to patient's daughter who returned phone call to CM. Patient was @ [facility] until last Friday, then was released to daughter's home due Insurance being cut. Daughter has been trying to take care of him, but states he is requiring nearly total care. Needs assist with all ADL's, meals, transportation to dialysis. Daughter and her both work fulltime and they have had people stopping in to provide meals for pt. Home health has not been set up as far as daughter knows, through SNF did mention having PT/OT come to home. Daughter feels patient needs to return to SNF on discharge. -Daughter states the @[facility] spoke with her re: [facility] application for her father. Daughter states she tried to find financial information for her father, however he has papers scattered everywhere and she could not find appropriate documentation. Daughter is concerned that by applying to [employer], her father will lose his house and daughter will have to move because her home is under father's name. Daughter also states that patient's is currently being treated @ a psych facility. -Dialysis @ [facility]. Daughter has been transporting patient. [facility] to notify of COVID positive testing. Requested lab results be sent, then they will update clinic. Patient may need to go to another [facility] dialysis center on discharge that accepts COVID patients. If SNF is recommended on dc, may need to look @ facilities near [facility] dialysis center and COVID TEST: 07/24/20 @ [facility] PCP: Dr. Martinez [facility]acy: [facility] Benefit: yes Living arrangements: see above. DME: walker, shower chair, wheeled walker, wheelchair. HHC: not current SNF: [facility] until last Friday DC Plan: anticipate patient will need to return to SNF near [facility] or inpt dialysis center.*
[2020-07-25 12:04] LABS: Partial Thromboplast Time 77.6 Seconds (24.1-36.2)
[2020-07-25 12:45] LABS: Bedside Glucose 136 mg/dL (70-110)
--- NOTE | 2020-07-25 12:57 | CASEMGMT ---
Addendum entered by Corinne Bowling 07/25/20 14:41: SW spoke w/Jason from [facility], they take dialysis patients who are COVID+ on dialysis, have one opening in dialysis left. SW called daughter Dinorah to talk about discharge plan. She explains pt is weaker than prior to being in [facility], and he needs 24 hour care. She works and has 7 children, is not able to provide this. Pt's other children are not available, his other daughter is in [place] and pt's son has not been involved recently. Pt's is in a psych facility and daughter anticipates she is going to need exterminator helper termite care, she also would not be able to care for pt even if she were to come home. We discussed options, SW explained with dialysis there aren't a lot of choices, w/pt having COVID. SW explained [facility] takes [employer], dialysis patients, and COVID+ patients. Axel from [facility] called as SW was speaking to daughter. Axel states that their dialysis partner, [facility], takes some [employer] and would need to run the insurance. They also would need the following documentation: Nephrology notes the last 2 dialysis run sheets the Hep B panel from the last 30 days the 2727. SW explained will check w/family and if agreeable will send initial referral, and will follow up w/dialysis information tomorrow as pt's dialysis center, [facility] is closed today. HEIDI spoke again w/daughter, explained that [facility] takes pt's insurance, takes [employer] and takes COVID positive. HEIDI explained that I would need to send the insurance information for the dialysis company, [facility], to see if they take pt's insurance. Daughter agreeable to HEIDI sending referral to both facilities. HEIDI also spoke w/daughter about pt applying for Medicaid. She states she was working with [facility] to get pt on Medicaid but was not able to get it active. HEIDI encouraged daughter to follow up, wherever pt ends up going, with the nursing home social worker at the facility to assist with applying for Medicaid. HEIDI faxed referral to both [facility] and [facility]. SW will continue to follow, if [facility] can indeed take pt then will follow up tomorrow with referral specifically for dialysis. MIGUELINA Shields Original Note: HEIDI called [facility], message left. SW called [facility](as they take pts with dialysis and COVID), message left. SW called [facility] states they take [employer] but he needs to check if the dialysis part([facility]) takes [employer]. He will let this SW know. MIGUELINA Duenas
[2020-07-25] MEDS: 0.9% Normal Saline 1,000 ML 60 ML IV (14:44)
--- NOTE | 2020-07-25 15:06 | PCM.CONS.C ---
Problem List (1) NSTEMI (non-ST elevated myocardial infarction) Status: Acute (2) CAD (coronary artery disease) Status: Chronic Qualifiers: Coronary Disease-Associated Artery/Lesion type: unspecified vessel or lesion type [place] vs. transplanted heart: unspecified whether [place] or transplanted heart Associated angina: angina presence unspecified Qualified Code(s): I25.10 - Atherosclerotic heart disease of [place] coronary artery without angina pectoris (3) Status post coronary artery bypass graft Status: Chronic Comment: 3 vessel CABG per pt in 2014? (4) Hyperlipidemia Status: Chronic Qualifiers: Hyperlipidemia type: pure hypercholesterolemia Qualified Code(s): E78.00 - Pure hypercholesterolemia, unspecified; E78.0 - Pure hypercholesterolemia (5) HTN (hypertension) Status: Chronic Qualifiers: Hypertension type: essential hypertension Qualified Code(s): I10 - Essential (primary) hypertension (6) Diabetes mellitus, type 2 Status: Chronic Qualifiers: Diabetes mellitus alf insulin use: without alf use Diabetes mellitus complication status: with circulatory complication Diabetes mellitus complication detail: with other circulatory complications Qualified Code(s): E11.59 - Type 2 diabetes mellitus with other circulatory complications Comment: historically poorly controlled due to non-compliance (7) Peripheral vascular disease Status: Chronic Comment: BL ANITHA PVD - status post angioplasty on 3 occasions (8) End-stage renal disease on hemodialysis Status: Chronic (9) History of stroke Status: Chronic Comment: Left parietal in August of 2017 (10) COVID-19 Status: Acute Reason for Consult Date of Consultation: 07/25/20 History of Present Illness: The patient is a 69 year [id number] white male with history of hyperlipidemia, hypertension, CAD, status post CABG, peripheral vascular disease, diabetes mellitus, end-stage renal disease with chronic hemodialysis, CVA, and now COVID-19 positive who is referred for concerns of of a non-ST segment elevation WY. The patient was apparently being at dialysis where he was noted to be febrile and complained of weakness and fatigue. He was subsequently evaluated and found to have COVID-19 positive. He was placed in the hospital for further evaluation and care. He states he has had no concerning chest discomfort. He does not report any acute shortness of breath or dyspnea. He does not report having orthopnea or PND. He states he may have had waxing and waning peripheral pitting edema in the past. He does not recall any loss of consciousness. He states that his main concern was his fatigue and weakness. His H&P states that he has also apparently had a cough, dyspnea, and has been somewhat confused . He has undergone additional evaluation. He had cardiac enzymes performed which were positive. His troponin I increased to 2.6 then declined. His ECG demonstrated the appearance of sinus rhythm with a first-degree AV block with a right bundle branch block pattern and inferior WY of indeterminate age pattern-cannot be excluded. His chest x-ray was reported with no acute changes. He states his previous cardiovascular evaluation was performed at [facility] near [place], [place]. Past Medical History Allergies/Adverse Reactions: Allergies No Known Allergies Allergy (Verified 07/24/20 14:06) Home Medications: Ambulatory Orders Medication Instructions Recorded Finasteride 5 mg PO DAILY 07/30/19 Amlodipine [Norvasc] 5 mg PO DAILY 05/26/20 Aspirin [Aspirin, Baby] 81 mg PO DAILY@0800 05/26/20 Atorvastatin Calcium 80 mg PO QHS 05/26/20 levETIRAcetam tablet [Keppra 500 mg PO BID 05/26/20 tablet] Carvedilol [Coreg] 12.5 mg PO BID 05/27/20 Insulin Glargine,Hum.rec.anlog 10 unit SQ BREAKFAST 06/07/20 [Basaglar Kwikpen U-100] Fenofibrate,Micronized 67 mg PO DAILY 06/08/20 [Fenofibrate] Calcium Acetate [Phoslo Gel Cap] 667 mg PO TIDCM 07/12/20 Hydralazine HCl 25 mg PO TID 07/24/20 Pantoprazole Sodium [Protonix] 40 mg PO DAILY 07/24/20 Tamsulosin HCl [Flomax] 0.8 mg PO QHS 07/24/20 Past Medical History (Chronic Problems): Chronic Problems (Last Reviewed 06/29/20 @ 09:18 by Leola Bhagat) End-stage renal disease on hemodialysis (Chronic) End stage renal disease on dialysis (Chronic) Depression (Chronic) BPH with obstruction/lower urinary tract symptoms (Chronic) Left ventricular hypertrophy (Chronic) Diverticulosis (Chronic) Tobacco dependence in remission (Chronic) smoked for only 3 hours hx of APLL (Chronic) Left leg- 05/16/19 left superficial femoral artery and left popliteal artery angioplasty by Dr. Kamara History of angioplasty of peripheral vessel (Chronic ~2017) 01/01/16 L Peroneal and L superficial femoral A. angioplasty by Dr. Kamara HTN (hypertension) (Chronic) History of stroke (Chronic) Left parietal in August of 2017 Peripheral vascular disease (Chronic) BL LE PVD - status post angioplasty on 3 occasions Status post coronary artery bypass graft (Chronic) 3 vessel CABG per pt in 2014? Diabetes mellitus, type 2 (Chronic) historically poorly controlled due to non-compliance GERD (gastroesophageal reflux disease) (Chronic) Hyperlipidemia (Chronic) CAD (coronary artery disease) (Chronic) Surgical History: coronary bypass surgery, - - Benign soft tissue tumor resection, CABG x 3, PCI x 1, BL tunnel surgery, bilateral lower extremity venous intervention unclear type. Psychiatric History: No pertinent psych hx - *Family History Maternal Family History: Family History (Last Reviewed 06/29/20 @ 09:18 by Leola Bhagat) Brother Diabetes Mother Hypertension Daughter Diabetes History Items: - - Patient notes that his mother was healthy and denies any history of heart disease, diabetes or cancer, passed at age 93. Paternal Family History: Family History (Last Reviewed 06/29/20 @ 09:18 by Leola Bhagat) Brother Diabetes Mother Hypertension Daughter Diabetes History Items: - - Patient notes that his father was healthy with no history of heart disease, diabetes or cancer, passed at age 89 secondary to brain aneurysm rupture. Lives: With Family Smoking Status: Former smoker Tobacco Use: Non-smoker Alcohol: None Drugs: None Review of Systems - Review of Systems General: Reports: Fever, Fatigue, Weakness. Denies: Night Sweats Cardiovascular: Denies: Chest Discomfort, Shortness of Breath, Orthopnea, PND, Peripheral Edema, Palpitations, Lightheadedness, Dizziness, Near Syncope, Syncope Respiratory: Denies: Cough, Sputum Production, Hemoptysis Gastrointestinal: Denies: Hematemesis, Hematochezia, Melena Genitourinary: Denies: Dysuria, Hematuria Skin: Denies: Rash Subjectve: This is a pleasant 69-year-old white male appears to be resting comfortably at the moment in no acute distress. Objective: Vital Signs Temp Pulse Resp BP Pulse Ox 98.3 F 66 16 113/56 L 97 07/25/20 14:34 07/25/20 14:45 07/25/20 14:34 07/25/20 14:45 07/25/20 14:34 Oxygen Flow Rate (L/min) 2 Oxygen Delivery Method Nasal Cannula Weight: 144 lb 6.444 oz Body Mass Index (BMI) 21.5 Finger Stick Blood Glucose 480 Intake and Output for Last 24 Hours 07/23/20 07/24/20 07/25/20 23:59 23:59 23:59 Intake Total 32.83 / 32.83 1324.95 / 1324.95 Balance 32.83 / 32.83 1324.95 / 1324.95 General: Awake, Cooperative, No Acute Distress HEENT: Atraumatic, Normocephalic, PERRL, EOMI, Sclera Non Icteric Neck: Supple, Good ROM, No JVD Lungs: Clear to auscultation Cardiovascular: Regular Rhythm, Normal S1, Normal S2 Abdomen: Bowel Sounds Present, Soft Extremities: No edema Psych/Mental Status: Flat Affect 07/24/20 15:00: Sodium 139, Potassium 3.7, Chloride 99, Carbon Dioxide 34.0 H, Anion Gap 6, BUN 37 H, Creatinine 6.26 H, Est GFR (MDRD) Af Amer 11 L, Est GFR (MDRD) Non-Af 9 L, BUN/Creatinine Ratio 5.9 L, Glucose 91, Calcium 8.9, Total Bilirubin 0.40, Troponin I 1.880 H* 07/24/20 15:00: APTT 36.0 07/24/20 15:00: PT 12.2, INR 1.0 07/24/20 16:28: VBG pH 7.44 H, VBG pO2 33, VBG HCO3 33 H, VBG O2 Sat (Calc) 64, VBG Base Excess 8 H 07/24/20 17:45: Troponin I 2.060 H* 07/24/20 17:45: Magnesium 2.0, Ferritin 261 07/24/20 21:55: APTT 240.3 H*, D-Dimer Quant (PE/DVT) 2.21 H* 07/24/20 21:55: Troponin I 2.620 H* 07/25/20 04:54: WBC 5.5, RBC 3.15 L, Hgb 9.4 L, Hct 30.6 L, MCV 97.1 H, MCH 29.8, MCHC 30.7 L, Plt Count 184, MPV 9.6, Immature Gran % (Auto) 0.500, Neut % (Auto) 57.3, Lymph % (Auto) 23.3, [place] % (Auto) 16.6 H, Eos % (Auto) 1.8, Baso % (Auto) 0.5, Absolute Neuts (auto) 3.2, Nucleated RBC % 0 07/25/20 04:54: Sodium 136, Potassium 4.3, Chloride 99, Carbon Dioxide 27.0, Anion Gap 10, BUN 54 H, Creatinine 8.07 H*, Est GFR (MDRD) Af Amer 9 L, Est GFR (MDRD) Non-Af 7 L, BUN/Creatinine Ratio 6.7 L, Glucose 79, Calcium 8.1 L, Total Bilirubin 0.40, Triglycerides 142, Cholesterol 115, LDL Cholesterol 46, VLDL Cholesterol 28, HDL Cholesterol 41 07/25/20 04:54: Troponin I 2.040 H* 07/25/20 04:54: APTT 88.9 H 07/25/20 11:40: APTT 77.6 H Rhythm: Sinus rhythm EKG: As noted above ECHO: ??2008 Impression: Left ventricle: Normal LV systolic function with an LVEF 65% Mild aortic valve insufficiency Stress Test: 05-12-2007 Stress ECG Impression: Negative Cardiac Cath: 11-05-2012: [facility] Left ventricle: Normal with an LVEF 55% Left main: Mild luminal irregularities LAD: Proximal 60 to 70% stenosis; mid 60% stenosis LCx: OM: 80% stenosis RCA: Proximal 50% stenosis; previous PCI site of 30% stenosis; distal 99% stenosis; right posterior lateral branch 99% stenosis LAD FFR: 0.74-positive PCI: 03-29-2009: [facility] RCA PCI CT Surgery: 11-10-2012: [facility] to [facility] MENDOZA to the LAD; SVG to the OM; SVG to the posterior lateral Comment: RCA calcified and unsuitable for grafting CXR: IMPRESSION: Hyperinflation. The lungs are clear. Electronically Signed: Attila Cabello, at 15:43 EST Assessment/Plan 1. Non-ST segment elevation W[place] The patient appears to have, by cardiac enzymes, findings compatible with a non-ST segment elevation [place]. At the moment he does not have any acute symptoms. He has no acute ECG changes. Thus it is unclear as to whether his findings are related to a type I event versus being a type II event being brought out by his underlying noncardiac/pulmonary condition. At the present time he is being monitored. His troponin I levels have decreased. His ECG is as noted. He has undergone noninvasive and invasive evaluation in the past leading to his previous PCI and CABG. At the moment he will continue medical therapy as deemed appropriate. He can be considered for future evaluation of his cardiovascular status, once his COVID-19 resolves, with respect to further noninvasive studies such as echocardiogram to evaluate his left ventricular wall motion and systolic function and potential coronary angiography to evaluate his coronary/graft that is. Of note, based upon his history of peripheral vascular disease consideration to be given as to whether or not he is a candidate for any invasive cardiovascular studies at this institution versus being performed at a tertiary care center. 2. CAD status post CABG He has undergone evaluation and care as noted above. At the moment he appears without acute symptoms. His cardiac enzymes are trending down. His ECG demonstrates no acute changes. He will continue medical therapy. He can undergo future evaluation as noted above when he is recovered from COVID-19 barring some unforeseen acute unstable cardiovascular event in the interim. 3. Hyperlipidemia He will continue medical management. 4. Hypertension He will continue medical therapy and follow-up as needed. 5. Diabetes mellitus He has a history of diabetes mellitus. He will continue evaluation care per internal medicine. 6. Peripheral vascular disease He has a history of peripheral vascular disease involving the lower extremities. Again this could be challenging with respect to invasive cardiovascular evaluation and care. Thus consideration will have to be given as to whether or not, depending upon his cardiovascular needs in the future, whether additional evaluation can be performed locally or would need to be performed at a tertiary care center. 7. End-stage renal disease with chronic hemodialysis He will continue evaluation care by nephrology. 8. CVA He has a history of CVA. Again this may give caution with respect to further invasive cardiovascular evaluation. Thus it may be reasonable depending upon his cardiovascular clinical course that he be considered for further noninvasive evaluation such as echocardiogram and potentially pharmacologic stress nuclear imaging study in the future prior to an invasive evaluation. 9. COVID-19 He is COVID-19 positive. He is continuing medical therapy per internal medicine and infectious disease. Comment: The patient's case was discussed and reviewed with the patient. He was agreeable to this approach. This note was generated using a voice recognition system and there may be incorrect words, spelling or punctuation that were not noted when reviewing the office note prior to saving.
--- NOTE | 2020-07-25 16:02 | CASEMGMT ---
CASSANDRA CM Note: [facility] can accept patient back with a change in chair time to 2:45 pm. If this plan changes, update will be needed to the [facility]. Jace CHAUHAN RN ACM
[2020-07-25 16:41] LABS: Bedside Glucose 128 mg/dL (70-110)
--- NOTE | 2020-07-25 16:42 | CASEMGMT ---
Jason from [facility] called to say they can take pt. SW will follow up tomorrow with daughter to see if this is where she would like for pt to go, or to consider another option. MIGUELINA Duenas
[2020-07-25] MEDS: Atorvastatin Calcium 80 MG Tablet PO (20:50)
[2020-07-25] MEDS: Tamsulosin HCl 0.4 MG Capsule 0.8 MG PO (20:50)
[2020-07-25] MEDS: Insulin Lispro 100 UNIT/ML INSULN.PEN SC (20:56)
[2020-07-25 20:59] LABS: Partial Thromboplast Time 44.2 Seconds (24.1-36.2)
[2020-07-25] MEDS: HEPARIN/D5w 25,000 UNITS 25,000 UNITS/250 ML IV.SOLN. 7 UNITS IV (21:29)
[2020-07-25] MEDS: Heparin Injection (Vial) 5,000 UNIT/ML VIAL IV (21:30)
--- NOTE | 2020-07-25 23:01 | PCS.PANDOC ---
PANDEMIC DOCUMENTATION INITIATED: Date: 07/24/20 Time: 2034
[2020-07-26] VITALS (14 sets, daily range): BP systolic 107–132; BP diastolic 53–62; PULSE 48–60; RESP 16–18; TEMP 36.2–37.1; O2SAT 95–100
[2020-07-26 03:16] LABS: Bedside Glucose 198 mg/dL (70-110)
[2020-07-26 03:45] LABS: Hematocrit 27.5 % (40-54); Hemoglobin 8.8 g/dL (13.0-16.5); Mean Corpuscular Hgb 29.9 pg (27.0-32.0); Mean Corpuscular Volume 93.5 fL (80-94); Mean Platelet Vol. 9.3 fl (6.2-12.0); Platelet Count 178 K/mm3 (150-450); RBC Distribution Width CV 14.7 % (11.6-14.6); RBC Distribution Width SD 50.6 fl (35.1-43.9); Red Blood Count 2.94 M/mm3 (4.6-6.2); White Blood Count 4.5 K/mm3 (4.4-11.0)
[2020-07-26 03:59] LABS: Partial Thromboplast Time 107.8 Seconds (24.1-36.2)
[2020-07-26 04:18] LABS: ALB/GLOB Ratio 0.8 RATIO (0.9-2.4); AST(SGOT) 47 U/L (15-37); Alanine Aminotransfer ALT/SGPT 17 U/L (16-61); Albumin, Serum 2.5 g/dL (3.2-5.0); Alkaline Phosphatase 42 U/L (45-117); Anion Gap 9 (5-15); BUN 77 mg/dL (7-18); BUN/Creat Ratio 7.8 RATIO (10-20); Calcium,Total 7.8 mg/dL (8.5-10.1); Chloride 100 mmol/L (98-107); Creatinine, Serum 9.91 mg/dL (0.70-1.30); EST Glomerular Filtration Rate 6 mL/min (>60); Est Glom Filt Rate - Afr Amer 7 mL/min (>60); Estimated Creatinine Clearance 6.33 ml/min; Glucose 132 mg/dL (74-106); Potassium 5.4 mmol/L (3.5-5.1); Protein, Total 5.5 g/dL (6.4-8.2); Sodium Level 135 mmol/L (136-145)
[2020-07-26] MEDS: 0.9% Normal Saline 1,000 ML 60 ML IV (06:52)
[2020-07-26] MEDS: hydrALAZINE 25 MG Tablet PO ×3 (06:54→21:42)
[2020-07-26 07:25] LABS: Bedside Glucose 120 mg/dL (70-110)
[2020-07-26] MEDS: dexAMETHasone 4 MG Tablet 6 MG PO (07:59)
[2020-07-26] MEDS: levETIRAcetam 500 MG Tablet PO ×2 (08:00→21:42)
[2020-07-26] MEDS: Aspirin 81 MG TAB.CHEW PO (08:00)
[2020-07-26] MEDS: Pantoprazole Sodium 40 MG Tablet PO (08:00)
[2020-07-26] MEDS: amLODIPine 5 MG Tablet PO (08:00)
[2020-07-26] MEDS: Finasteride 5 MG Tablet PO (08:00)
[2020-07-26] MEDS: Calcium Acetate 667 MG Capsule PO ×2 (08:00→17:24)
[2020-07-26] MEDS: Carvedilol 12.5 MG Tablet PO ×2 (08:02→21:46)
--- NOTE | 2020-07-26 10:41 | PCM.PN.REN ---
Patient Problems: Active and Suspected Problems (Last Reviewed 06/29/20 @ 09:18 by Leola Bhagat) COVID-19 (Acute) NSTEMI (non-ST elevated myocardial infarction) (Acute) Subjective: on 2 liters of oxygen no c/o no sob/cp Objective: PE deferred to preserve PPE and prevent further transmission of covid-19 - Physical Exam Vitals/I&O's: Vital Signs Temp Pulse Resp BP Pulse Ox 97.8 F 51 L 16 107/54 L 97 07/26/20 10:05 07/26/20 10:05 07/26/20 10:05 07/26/20 10:05 07/26/20 10:05 Oxygen Flow Rate (L/min) 2 Oxygen Delivery Method Nasal Cannula Weight: 65.3 kg Body Mass Index (BMI) 21.5 Finger Stick Blood Glucose 480 Intake and Output for Last 24 Hours 07/24/20 07/25/20 07/26/20 23:59 23:59 23:59 Intake Total 32.83 / 32.83 1620.15 / 1620.15 1323.62 / 1323.62 Output Total 0 / 0 0 / 0 Balance 32.83 / 32.83 1620.15 / 1620.15 1323.62 / 1323.62 Microbiology Past 72 Hours 07/24/20 15:00 Mucosa - Nasopharyngeal Respiratory Panel (PCR) - Final Laboratory Results 07/25/20 11:11: POC Glucose 136 H 07/25/20 11:40: APTT 77.6 H 07/25/20 16:25: POC Glucose 128 H 07/25/20 20:54: POC Glucose 198 H 07/25/20 : APTT 44.2 H 07/26/20 03:40: WBC 4.5, RBC 2.94 L, Hgb 8.8 L, Hct 27.5 L, MCV 93.5, MCH 29.9, MCHC 32.0, RDW Std Deviation 50.6 H, RDW Coeff of Arturo 14.7 H, Plt Count 178, MPV 9.3 07/26/20 03:40: Sodium 135 L, Potassium 5.4 H, Chloride 100, Carbon Dioxide 26.0, Anion Gap 9, BUN 77 H, Creatinine 9.91 H*, Estim Creat Clear Calc 6.33, Est GFR (MDRD) Af Amer 7 L, Est GFR (MDRD) Non-Af 6 L, BUN/Creatinine Ratio 7.8 L, Glucose 132 H, Calcium 7.8 L, Total Bilirubin 0.30, AST 47 H, ALT 17, Alkaline Phosphatase 42 L, Total Protein 5.5 L, Albumin 2.5 L, Globulin 3.0, Albumin/Globulin Ratio 0.8 L 07/26/20 03:40: APTT 107.8 H* 07/26/20 06:48: POC Glucose 120 H Current Medications Acetaminophen (Acetaminophen 325 Mg Tablet) 650 mg PO Q6H PRN PRN PRN Reason: Pain Score 1-10/Temp > 100.7 F Al Hydroxide/Mg Hydroxide (Mag Hydrox/Al Hydrox/Simeth 30 Ml Udc) 30 ml PO Q6H PRN PRN PRN Reason: Gastric Burning Albuterol Sulfate (Albuterol Sulfate 8 Gm Inhaler (60 Puffs)) 1 puff INHALATION Q4H PRN PRN PRN Reason: Dyspnea, wheezing Amlodipine Besylate (Amlodipine 5 Mg Tablet) 5 mg PO DAILY [facility] Last Admin: 07/26/20 08:00 Dose: 5 mg Documented by: Aspirin (Aspirin 81 Mg Tab.Chew) 81 mg PO DAILY [facility] Last Admin: 07/26/20 08:00 Dose: 81 mg Documented by: Atorvastatin Calcium (Atorvastatin Calcium 80 Mg Tablet) 80 mg PO QHS [facility] Last Admin: 07/25/20 20:50 Dose: 80 mg Documented by: Calcium Acetate (Calcium Acetate 667 Mg Capsule) 667 mg PO TIDCM [facility] Last Admin: 07/26/20 08:00 Dose: 667 mg Documented by: Carvedilol (Carvedilol 12.5 Mg Tablet) 12.5 mg PO BID [facility] Last Admin: 07/26/20 08:02 Dose: 12.5 mg Documented by: Dexamethasone (Dexamethasone 4 Mg Tablet) 6 mg PO DAILY [facility] Stop: 08/03/20 10:01 Last Admin: 07/26/20 07:59 Dose: 6 mg Documented by: Finasteride (Finasteride 5 Mg Tablet) 5 mg PO DAILY [facility] Last Admin: 07/26/20 08:00 Dose: 5 mg Documented by: Guaifenesin (Guaifenesin 10 Ml Udc (200mg/10ml)) 20 ml PO Q4H PRN PRN PRN Reason: COUGH Heparin Sodium (Porcine) (Heparin Injection (Vial) 5,000 Unit/Ml Vial) 0 unit IV UD PRN; Protocol PRN Reason: dose adjustment Last Admin: 07/25/20 21:30 Dose: 1,000 unit Documented by: Hydralazine HCl (Hydralazine 25 Mg Tablet) 25 mg PO TID JOY Last Admin: 07/26/20 06:54 Dose: 25 mg Documented by: Hydralazine HCl (Hydralazine 20 Mg/Ml Vial) 10 mg IV Q4H PRN PRN PRN Reason: SBP > 160 Sodium Chloride () 1,000 mls @ 60 mls/hr IV .[id number] JOY Last Infusion: 07/26/20 10:02 Dose: 0 mls/hr Documented by: Heparin Sodium/Dextrose () 25,000 units in 250 mls @ 10 mls/hr IV .Q25H JOY; Protocol Last Titration: 07/26/20 06:40 Dose: 400 units/hr, 4 mls/hr Documented by: Sodium Chloride () 250 mls @ 15 mls/hr IV .[id number] PRN PRN Reason: Saline Flush Sodium Chloride () 250 mls @ 15 mls/hr IV .[id number] PRN PRN Reason: Additional IVPB Infusion Remdesivir 100 mg/ Sodium (Chloride) 250 mls @ 125 mls/hr IV DAILY JOY; Protocol Stop: 07/29/20 11:59 Last Admin: 07/26/20 09:59 Dose: 125 mls/hr Documented by: Insulin Glargine (Insulin Glargine 100 Units/Ml Pen) 10 units SC 0700 JOY Last Admin: 07/26/20 07:58 Dose: 10 u Documented by: Insulin Human Lispro (Insulin Lispro 100 Unit/Ml Insuln.Pen) 0 unit SC ACHS JOY; Protocol Last Admin: 07/26/20 06:54 Dose: Not Given Documented by: Levetiracetam (Levetiracetam 500 Mg Tablet) 500 mg PO BID [facility] Last Admin: 07/26/20 08:00 Dose: 500 mg Documented by: Magnesium Hydroxide (Magnesium Hydroxide 30 Ml Udc) 30 ml PO DAILY PRN PRN PRN Reason: Constipation Melatonin (Melatonin 3 Mg Tablet) 3 mg PO QHS PRN PRN PRN Reason: INSOMNIA Morphine Sulfate (Morphine 2 Mg/Ml Syringe) 2 mg IV Q3H PRN PRN PRN Reason: Pain Score 6-10 Last Admin: 07/25/20 08:23 Dose: 2 mg Documented by: Nitroglycerin (Nitroglycerin (Inpatient Use) 0.4 Mg Tab.Subl) 0.4 mg SUBLINGUAL Q5M PRN PRN Reason: CARDIAC/CHEST PAIN Ondansetron HCl (Ondansetron 4 Mg/2 Ml Vial) 4 mg IV Q8H PRN PRN PRN Reason: NAUSEA/VOMITING Oxycodone HCl (Oxycodone 5 Mg Tablet) 5 mg PO Q4H PRN PRN PRN Reason: Pain Score 4-5 Pantoprazole Sodium (Pantoprazole Sodium 40 Mg Tablet) 40 mg PO DAILY [facility] Last Admin: 07/26/20 08:00 Dose: 40 mg Documented by: Prochlorperazine Edisylate (Prochlorperazine 10 Mg/2 Ml Vial) 5 mg IV Q4H PRN PRN PRN Reason: Breakthrough Nausea/Vomiting Psyllium Hydrophilic Mucilloid (Psyllium 1 Packet) 1 packet PO DAILY PRN PRN PRN Reason: Constipation Senna/Docusate Sodium (Senna/Docusate Sodium 1 Tablet) 2 tablet PO BID PRN PRN PRN Reason: Constipation Sodium Chloride (0.9% Saline Lock 10 Ml Syringe) 10 - 40 ml IV UD PRN PRN Reason: SALINE FLUSH Last Admin: 07/24/20 21:21 Dose: 10 ml Documented by: Tamsulosin HCl (Tamsulosin Hcl 0.4 Mg Capsule) 0.8 mg PO QHS [facility] Last Admin: 07/25/20 20:50 Dose: 0.8 mg Documented by: Throat Lozenges (Benzocaine/Menthol 1 Lozenge) 1 lozenge MUCOUS MEM Q2H PRN PRN PRN Reason: SORE THROAT Medical Necessity - Tobacco Use Smoking Status: Former smoker Tobacco Use: Non-smoker Assessment/Plan All Active Problems (Last Reviewed 06/29/20 @ 09:18 by Leola Bhagat) Problem with dialysis access (Acute) COVID-19 (Acute) NSTEMI (non-ST elevated myocardial infarction) (Acute) Aspiration into airway (Ruled-out) Frequent falls (Acute) Generalized weakness (Acute) Debility (Acute) Frequent falls (Acute) ESRD continue Friday dialysis for dialysis today .Follow up blood cx since has has TDC.d/w rn and hd rn Anemia monitor RORY with HD HTN continue meds controlled CKD MBD binders monitor ca phos COVID-19 per primary
--- NOTE | 2020-07-26 10:53 | PCM.PN.HOSP ---
Patient Problems: Active and Suspected Problems (Last Reviewed 06/29/20 @ 09:18 by Leola Bhagat) COVID-19 (Acute) NSTEMI (non-ST elevated myocardial infarction) (Acute) Subjective: Patient seen and examined. He complains of numbness in the lateral fingers of his LUE. He admits to having a history of carpal tunnel syndrome in both hands, for which he says he had surgery remotely. Review of systems otherwise negative. He denies any blurred vision, weakness in any extremity, tremors, facial droop or any other numbness or tingling. Vitals show bradycardia, but he has otherwise remained hemodynamically stable. Vitals/I&O's: Vital Signs Temp Pulse Resp BP Pulse Ox 97.8 F 51 L 16 107/54 L 97 07/26/20 10:05 07/26/20 10:05 07/26/20 10:05 07/26/20 10:05 07/26/20 10:05 Oxygen Flow Rate (L/min) 2 Oxygen Delivery Method Nasal Cannula Weight: 143 lb 15.39 oz Body Mass Index (BMI) 21.5 Finger Stick Blood Glucose 480 Intake and Output for Last 24 Hours 07/24/20 07/25/20 07/26/20 23:59 23:59 23:59 Intake Total 32.83 / 32.83 1620.15 / 1620.15 1323.62 / 1323.62 Output Total 0 / 0 0 / 0 Balance 32.83 / 32.83 1620.15 / 1620.15 1323.62 / 1323.62 General: Alert, Oriented x3, Cooperative, No apparent distress HEENT: Atraumatic, PERRLA, EOMI, Normocephalic Oral: Dry Mucosa Neck: Supple, No JVD, Negative Carotid Bruits Lungs: - - diminished breath sounds bibasally, no wheezes or crackles. on 2L of oxygen Cardiovascular: Regular rate, Regular Rhythm, Normal S1, Normal S2, No murmurs Abdomen: Bowel Sounds Present, Soft, Non Tender, Non-Distended, No Hepato-splenomegaly Extremities: No clubbing, No cyanosis, No edema, Capillary Refill Less than 3 Seconds Skin: No rashes, No breakdown Musculoskeletal: No Tenderness to Palpation of Joints or Extremities Lymphatic: No Cervical, Supraclavicular, or Inguinal Adenopathy Neurological: Cranial nerves II-XII grossly intact, Neuro grossly intact, Motor Exam 5/5 strength throughout Psych/Mental Status: Normal Affect, Appropriate, Alert and oriented to time, place, person, mood and affect, Tinel's sign over left wrist is positive General: Alert, Oriented x3, Cooperative HEENT: Atraumatic, PERRLA, EOMI, Normocephalic Neck: Supple, No JVD, Negative Carotid Bruits Lungs: Clear to auscultation, Normal air movement Cardiovascular: Regular rate, No murmurs Abdomen: Bowel Sounds Present, Soft, Non Tender Extremities: No edema, Capillary Refill Less than 3 Seconds Skin: No rashes, No breakdown Musculoskeletal: No Tenderness to Palpation of Joints or Extremities Neurological: Cranial nerves II-XII grossly intact Psych/Mental Status: Normal Affect, Appropriate Microbiology Past 72 Hours 07/24/20 15:00 Mucosa - Nasopharyngeal Respiratory Panel (PCR) - Final Laboratory Results 07/25/20 11:11: POC Glucose 136 H 07/25/20 11:40: APTT 77.6 H 07/25/20 16:25: POC Glucose 128 H 07/25/20 20:54: POC Glucose 198 H 07/25/20 : APTT 44.2 H 07/26/20 03:40: WBC 4.5, RBC 2.94 L, Hgb 8.8 L, Hct 27.5 L, MCV 93.5, MCH 29.9, MCHC 32.0, RDW Std Deviation 50.6 H, RDW Coeff of Arturo 14.7 H, Plt Count 178, MPV 9.3 07/26/20 03:40: Sodium 135 L, Potassium 5.4 H, Chloride 100, Carbon Dioxide 26.0, Anion Gap 9, BUN 77 H, Creatinine 9.91 H*, Estim Creat Clear Calc 6.33, Est GFR (MDRD) Af Amer 7 L, Est GFR (MDRD) Non-Af 6 L, BUN/Creatinine Ratio 7.8 L, Glucose 132 H, Calcium 7.8 L, Total Bilirubin 0.30, AST 47 H, ALT 17, Alkaline Phosphatase 42 L, Total Protein 5.5 L, Albumin 2.5 L, Globulin 3.0, Albumin/Globulin Ratio 0.8 L 07/26/20 03:40: APTT 107.8 H* 07/26/20 06:48: POC Glucose 120 H Current Medications Acetaminophen (Acetaminophen 325 Mg Tablet) 650 mg PO Q6H PRN PRN PRN Reason: Pain Score 1-10/Temp > 100.7 F Al Hydroxide/Mg Hydroxide (Mag Hydrox/Al Hydrox/Simeth 30 Ml Udc) 30 ml PO Q6H PRN PRN PRN Reason: Gastric Burning Albuterol Sulfate (Albuterol Sulfate 8 Gm Inhaler (60 Puffs)) 1 puff INHALATION Q4H PRN PRN PRN Reason: Dyspnea, wheezing Amlodipine Besylate (Amlodipine 5 Mg Tablet) 5 mg PO DAILY [facility] Last Admin: 07/26/20 08:00 Dose: 5 mg Documented by: Aspirin (Aspirin 81 Mg Tab.Chew) 81 mg PO DAILY [facility] [place] Last Admin: 07/26/20 08:00 Dose: 81 mg Documented by: Atorvastatin Calcium (Atorvastatin Calcium 80 Mg Tablet) 80 mg PO QHS [facility] [place] Last Admin: 07/25/20 20:50 Dose: 80 mg Documented by: Calcium Acetate (Calcium Acetate 667 Mg Capsule) 667 mg PO TIDCM [facility] [place] Last Admin: 07/26/20 08:00 Dose: 667 mg Documented by: Carvedilol (Carvedilol 12.5 Mg Tablet) 12.5 mg PO BID [facility] [place] Last Admin: 07/26/20 08:02 Dose: 12.5 mg Documented by: Dexamethasone (Dexamethasone 4 Mg Tablet) 6 mg PO DAILY [facility] Stop: 08/03/20 10:01 Last Admin: 07/26/20 07:59 Dose: 6 mg Documented by: Finasteride (Finasteride 5 Mg Tablet) 5 mg PO DAILY [facility] [place] Last Admin: 07/26/20 08:00 Dose: 5 mg Documented by: Guaifenesin (Guaifenesin 10 Ml Udc (200mg/10ml)) 20 ml PO Q4H PRN PRN PRN Reason: COUGH Heparin Sodium (Porcine) (Heparin Injection (Vial) 5,000 Unit/Ml Vial) 0 unit IV UD PRN; Protocol PRN Reason: dose adjustment Last Admin: 07/25/20 21:30 Dose: 1,000 unit Documented by: Hydralazine HCl (Hydralazine 25 Mg Tablet) 25 mg PO TID [facility] [place] Last Admin: 07/26/20 06:54 Dose: 25 mg Documented by: Hydralazine HCl (Hydralazine 20 Mg/Ml Vial) 10 mg IV Q4H PRN PRN PRN Reason: SBP > 160 Sodium Chloride () 1,000 mls @ 60 mls/hr IV .[id number] [facility] [place] Last Infusion: 07/26/20 10:02 Dose: 0 mls/hr Documented by: Heparin Sodium/Dextrose () 25,000 units in 250 mls @ 10 mls/hr IV .Q25H [facility]; Protocol Last Titration: 07/26/20 06:40 Dose: 400 units/hr, 4 mls/hr Documented by: Sodium Chloride () 250 mls @ 15 mls/hr IV .[id number] PRN PRN Reason: Saline Flush Sodium Chloride () 250 mls @ 15 mls/hr IV .[id number] PRN PRN Reason: Additional IVPB Infusion Remdesivir 100 mg/ Sodium (Chloride) 250 mls @ 125 mls/hr IV DAILY [facility] [place]; Protocol Stop: 07/29/20 11:59 Last Admin: 07/26/20 09:59 Dose: 125 mls/hr Documented by: Insulin Glargine (Insulin Glargine 100 Units/Ml Pen) 10 units SC 0700 [facility] Last Admin: 07/26/20 07:58 Dose: 10 u Documented by: Insulin Human Lispro (Insulin Lispro 100 Unit/Ml Insuln.Pen) 0 unit SC ACHS [facility] [place]; Protocol Last Admin: 07/26/20 06:54 Dose: Not Given Documented by: Levetiracetam (Levetiracetam 500 Mg Tablet) 500 mg PO BID [facility] [place] Last Admin: 07/26/20 08:00 Dose: 500 mg Documented by: Magnesium Hydroxide (Magnesium Hydroxide 30 Ml Udc) 30 ml PO DAILY PRN PRN PRN Reason: Constipation Melatonin (Melatonin 3 Mg Tablet) 3 mg PO QHS PRN PRN PRN Reason: INSOMNIA Morphine Sulfate (Morphine 2 Mg/Ml Syringe) 2 mg IV Q3H PRN PRN PRN Reason: Pain Score 6-10 Last Admin: 07/25/20 08:23 Dose: 2 mg Documented by: Nitroglycerin (Nitroglycerin (Inpatient Use) 0.4 Mg Tab.Subl) 0.4 mg SUBLINGUAL Q5M PRN PRN Reason: CARDIAC/CHEST PAIN Ondansetron HCl (Ondansetron 4 Mg/2 Ml Vial) 4 mg IV Q8H PRN PRN PRN Reason: NAUSEA/VOMITING Oxycodone HCl (Oxycodone 5 Mg Tablet) 5 mg PO Q4H PRN PRN PRN Reason: Pain Score 4-5 Pantoprazole Sodium (Pantoprazole Sodium 40 Mg Tablet) 40 mg PO DAILY [facility] Last Admin: 07/26/20 08:00 Dose: 40 mg Documented by: Prochlorperazine Edisylate (Prochlorperazine 10 Mg/2 Ml Vial) 5 mg IV Q4H PRN PRN PRN Reason: Breakthrough Nausea/Vomiting Psyllium Hydrophilic Mucilloid (Psyllium 1 Packet) 1 packet PO DAILY PRN PRN PRN Reason: Constipation Senna/Docusate Sodium (Senna/Docusate Sodium 1 Tablet) 2 tablet PO BID PRN PRN PRN Reason: Constipation Sodium Chloride (0.9% Saline Lock 10 Ml Syringe) 10 - 40 ml IV UD PRN PRN Reason: SALINE FLUSH Last Admin: 07/24/20 21:21 Dose: 10 ml Documented by: Tamsulosin HCl (Tamsulosin Hcl 0.4 Mg Capsule) 0.8 mg PO QHS [facility] Last Admin: 07/25/20 20:50 Dose: 0.8 mg Documented by: Throat Lozenges (Benzocaine/Menthol 1 Lozenge) 1 lozenge MUCOUS MEM Q2H PRN PRN PRN Reason: SORE THROAT STROKE Vital Signs/Narrative: Vital Signs Temp Pulse Resp BP Pulse Ox 07/26/20 10:05 97.8 F 51 L 16 107/54 L 97 07/26/20 08:30 49 L 07/26/20 06:54 52 L Medical Necessity - Tobacco Use Smoking Status: Former smoker Tobacco Use: Non-smoker Assessment/Plan All Active Problems (Last Reviewed 06/29/20 @ 09:18 by Leola Bhagat) Problem with dialysis access (Acute) COVID-19 (Acute) NSTEMI (non-ST elevated myocardial infarction) (Acute) Aspiration into airway (Ruled-out) Frequent falls (Acute) Generalized weakness (Acute) Debility (Acute) Frequent falls (Acute) #COVID 19 infection Currently on p.o. dexamethasone 6 mg daily ID on board. On remdesivir Titrate oxygen to maintain saturation above 90%. Breathing treatment with bronchodilators. # Acute hypoxic respiratory insufficiency due to COVID as above #Nonstemi Troponin peaked at 2.6 and trended down slightly to 2.02. On aspirin and heparin drip as well as high intensity statin and carvedilol Cardiology on board- advocate medical management for now once COVID resolves, to have further workup such as 2D echo, to help determine need for cardiac cath, per cardiology. #carpal tunnel syndrome Complained of numbness in his left hand and Tinel sign was positive. PT OT on board. Does have a history of Carpal Tunnel syndrome # type 2 diabetes mellitus: on lantus 10IU daily. ISS. accuchecks ACHS # ESRD on HD: Dialysis Wednesdays and Fridays. Nephrology on board. # CAD s/p CABG: On aspirin, beta-ginny and statin. # history of subdural hematoma: on keppra # PAD s/p bilateral stents: on statin, and carvedilol #GERD: On PPI #Hypertension: On Norvasc, and Coreg with IV hydralazine as needed. DVT prophylaxis; on heparin drip; will start on coumadin o/a of elevated D dimer in setting of covid once patient is ready for discharge. Inpatient E&M: 75400 Subs Hosp L2
--- NOTE | 2020-07-26 11:05 | CASEMGMT ---
Addendum entered by Elidia Caballero 07/26/20 15:21: [facility] [address] [facility] Addendum entered by Christin Chun 07/26/20 12:42: Social Work Return call from Axel at [facility] and he confirmed pt insurance covers services of [facility]. SW placed call to pt dgt Dinorah and explained options. Dinorah would like pt to go to [facility]. Call to Jason at [facility] and he confirmed they can accept pt. Dialysis needs transferred. Once this is transferred Jason will start precert and he expects pt will be able to transfer on Friday. Phone call to [facility] and initiated transfer of dialysis services from [facility] to [facility] [address] [facility]. Will await return call to confirm dialysis has been changed. [facility] notified that pt choosing alternate facility. GOLDIE Sandhu Original Note: Social Work SW spoke with Jason at [facility] and they are able to accept pt and Dialysis from pt current [facility] site would need transferred to the [facility] on site at the facility. HEIDI spoke with Axel at [facility]. They would be able to accept pt but would have to change dialysis carriers from [facility] to [facility]. Axel is also checking insurance benefits for Dialysis. Phone call to pt dgeric Copeland and requested return call to discuss discharge options and preferences. Will await return call. GOLDIE Sandhu
[2020-07-26 12:06] LABS: Bedside Glucose 118 mg/dL (70-110)
--- NOTE | 2020-07-26 12:45 | DIALYSIS ---
Report from primary RN, Morena Carolina. Access: Right chest CVC. Site benign, dressing changed using aseptic technique and biofilm dressing. Connections secure, hemosafe applied x 2.
--- NOTE | 2020-07-26 13:46 | CASEMGMT ---
CASSANDRA CASTILLO NOTE: Spoke w/Jaycee, nurse @ [facility]. 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 Jaycee was made aware tentative plan @ discharge is for [facility] and for pt to receive dialysis on-site there. Frank HANSENN CASSANDRA CM
--- NOTE | 2020-07-26 15:55 | PCM.PN.ID ---
Patient Problems: Active and Suspected Problems (Last Reviewed 06/29/20 @ 09:18 by Leola Bhagat) COVID-19 (Acute) NSTEMI (non-ST elevated myocardial infarction) (Acute) Subjective: Feeling ok, no fever - Physical Exam Vitals/I&O's: Vital Signs Temp Pulse Resp BP Pulse Ox 97.7 F L 49 L 16 115/53 L 100 07/26/20 12:00 07/26/20 12:00 07/26/20 12:00 07/26/20 12:00 07/26/20 12:00 Oxygen Flow Rate (L/min) 2 Oxygen Delivery Method Nasal Cannula Weight: 65.3 kg Body Mass Index (BMI) 21.5 Finger Stick Blood Glucose 480 Intake and Output for Last 24 Hours 07/24/20 07/25/20 07/26/20 23:59 23:59 23:59 Intake Total 32.83 / 32.83 1620.15 / 1620.15 1573.62 / 1573.62 Output Total 0 / 0 0 / 0 Balance 32.83 / 32.83 1620.15 / 1620.15 1573.62 / 1573.62 General: Alert, Cooperative, No apparent distress Lungs: Diminished Cardiovascular: Regular rate, Regular Rhythm Abdomen: Soft, Non Tender, Non-Distended Skin: No rashes Microbiology Past 72 Hours 07/24/20 14:20 Blood Culture (Wb) - Anticubital Right Blood Culture - Preliminary No growth in 48 hours. 07/24/20 15:00 Mucosa - Nasopharyngeal Respiratory Panel (PCR) - Final Laboratory Results 07/25/20 16:25: POC Glucose 128 H 07/25/20 20:54: POC Glucose 198 H 07/25/20 : APTT 44.2 H 07/26/20 03:40: WBC 4.5, RBC 2.94 L, Hgb 8.8 L, Hct 27.5 L, MCV 93.5, MCH 29.9, MCHC 32.0, RDW Std Deviation 50.6 H, RDW Coeff of Arturo 14.7 H, Plt Count 178, MPV 9.3 07/26/20 03:40: Sodium 135 L, Potassium 5.4 H, Chloride 100, Carbon Dioxide 26.0, Anion Gap 9, BUN 77 H, Creatinine 9.91 H*, Estim Creat Clear Calc 6.33, Est GFR (MDRD) Af Amer 7 L, Est GFR (MDRD) Non-Af 6 L, BUN/Creatinine Ratio 7.8 L, Glucose 132 H, Calcium 7.8 L, Total Bilirubin 0.30, AST 47 H, ALT 17, Alkaline Phosphatase 42 L, Total Protein 5.5 L, Albumin 2.5 L, Globulin 3.0, Albumin/Globulin Ratio 0.8 L 07/26/20 03:40: APTT 107.8 H* 07/26/20 06:48: POC Glucose 120 H 07/26/20 11:01: POC Glucose 118 H 07/26/20 12:40: APTT 40.0 H Current Medications Acetaminophen (Acetaminophen 325 Mg Tablet) 650 mg PO Q6H PRN PRN PRN Reason: Pain Score 1-10/Temp > 100.7 F Al Hydroxide/Mg Hydroxide (Mag Hydrox/Al Hydrox/Simeth 30 Ml Udc) 30 ml PO Q6H PRN PRN PRN Reason: Gastric Burning Albuterol Sulfate (Albuterol Sulfate 8 Gm Inhaler (60 Puffs)) 1 puff INHALATION Q4H PRN PRN PRN Reason: Dyspnea, wheezing Amlodipine Besylate (Amlodipine 5 Mg Tablet) 5 mg PO DAILY [facility] Last Admin: 07/26/20 08:00 Dose: 5 mg Documented by: Aspirin (Aspirin 81 Mg Tab.Chew) 81 mg PO DAILY [facility] Last Admin: 07/26/20 08:00 Dose: 81 mg Documented by: Atorvastatin Calcium (Atorvastatin Calcium 80 Mg Tablet) 80 mg PO QHS [facility] Last Admin: 07/25/20 20:50 Dose: 80 mg Documented by: Calcium Acetate (Calcium Acetate 667 Mg Capsule) 667 mg PO TIDCM [facility] Last Admin: 07/26/20 08:00 Dose: 667 mg Documented by: Carvedilol (Carvedilol 12.5 Mg Tablet) 12.5 mg PO BID [facility] Last Admin: 07/26/20 08:02 Dose: 12.5 mg Documented by: Dexamethasone (Dexamethasone 4 Mg Tablet) 6 mg PO DAILY [facility] Stop: 08/03/20 10:01 Last Admin: 07/26/20 07:59 Dose: 6 mg Documented by: Finasteride (Finasteride 5 Mg Tablet) 5 mg PO DAILY [facility] Last Admin: 07/26/20 08:00 Dose: 5 mg Documented by: Guaifenesin (Guaifenesin 10 Ml Udc (200mg/10ml)) 20 ml PO Q4H PRN PRN PRN Reason: COUGH Heparin Sodium (Porcine) (Heparin Injection (Vial) 5,000 Unit/Ml Vial) 0 unit IV UD PRN; Protocol PRN Reason: dose adjustment Last Admin: 07/25/20 21:30 Dose: 1,000 unit Documented by: Hydralazine HCl (Hydralazine 25 Mg Tablet) 25 mg PO TID [facility] Last Admin: 07/26/20 06:54 Dose: 25 mg Documented by: Hydralazine HCl (Hydralazine 20 Mg/Ml Vial) 10 mg IV Q4H PRN PRN PRN Reason: SBP > 160 Sodium Chloride () 1,000 mls @ 60 mls/hr IV .[id number] [facility] Last Infusion: 07/26/20 10:02 Dose: 0 mls/hr Documented by: Heparin Sodium/Dextrose () 25,000 units in 250 mls @ 10 mls/hr IV .Q25H [facility]; Protocol Last Titration: 07/26/20 06:40 Dose: 400 units/hr, 4 mls/hr Documented by: Sodium Chloride () 250 mls @ 15 mls/hr IV .[id number] PRN PRN Reason: Saline Flush Sodium Chloride () 250 mls @ 15 mls/hr IV .[id number] PRN PRN Reason: Additional IVPB Infusion Remdesivir 100 mg/ Sodium (Chloride) 250 mls @ 125 mls/hr IV DAILY [facility]; Protocol Stop: 07/29/20 11:59 Last Infusion: 07/26/20 11:59 Dose: Infused Documented by: Insulin Glargine (Insulin Glargine 100 Units/Ml Pen) 10 units SC 0700 [facility] Last Admin: 07/26/20 07:58 Dose: 10 u Documented by: Insulin Human Lispro (Insulin Lispro 100 Unit/Ml Insuln.Pen) 0 unit SC ACHS [facility]; Protocol Last Admin: 07/26/20 11:08 Dose: Not Given Documented by: Levetiracetam (Levetiracetam 500 Mg Tablet) 500 mg PO BID [facility] Last Admin: 07/26/20 08:00 Dose: 500 mg Documented by: Magnesium Hydroxide (Magnesium Hydroxide 30 Ml Udc) 30 ml PO DAILY PRN PRN PRN Reason: Constipation Melatonin (Melatonin 3 Mg Tablet) 3 mg PO QHS PRN PRN PRN Reason: INSOMNIA Morphine Sulfate (Morphine 2 Mg/Ml Syringe) 2 mg IV Q3H PRN PRN PRN Reason: Pain Score 6-10 Last Admin: 07/25/20 08:23 Dose: 2 mg Documented by: Nitroglycerin (Nitroglycerin (Inpatient Use) 0.4 Mg Tab.Subl) 0.4 mg SUBLINGUAL Q5M PRN PRN Reason: CARDIAC/CHEST PAIN Ondansetron HCl (Ondansetron 4 Mg/2 Ml Vial) 4 mg IV Q8H PRN PRN PRN Reason: NAUSEA/VOMITING Oxycodone HCl (Oxycodone 5 Mg Tablet) 5 mg PO Q4H PRN PRN PRN Reason: Pain Score 4-5 Pantoprazole Sodium (Pantoprazole Sodium 40 Mg Tablet) 40 mg PO DAILY [facility] Last Admin: 07/26/20 08:00 Dose: 40 mg Documented by: Prochlorperazine Edisylate (Prochlorperazine 10 Mg/2 Ml Vial) 5 mg IV Q4H PRN PRN PRN Reason: Breakthrough Nausea/Vomiting Psyllium Hydrophilic Mucilloid (Psyllium 1 Packet) 1 packet PO DAILY PRN PRN PRN Reason: Constipation Senna/Docusate Sodium (Senna/Docusate Sodium 1 Tablet) 2 tablet PO BID PRN PRN PRN Reason: Constipation Sodium Chloride (0.9% Saline Lock 10 Ml Syringe) 10 - 40 ml IV UD PRN PRN Reason: SALINE FLUSH Last Admin: 07/24/20 21:21 Dose: 10 ml Documented by: Tamsulosin HCl (Tamsulosin Hcl 0.4 Mg Capsule) 0.8 mg PO QHS [facility] Last Admin: 07/25/20 20:50 Dose: 0.8 mg Documented by: Throat Lozenges (Benzocaine/Menthol 1 Lozenge) 1 lozenge MUCOUS MEM Q2H PRN PRN PRN Reason: SORE THROAT Medical Necessity - Tobacco Use Smoking Status: Former smoker Tobacco Use: Non-smoker Route of nutrition/ use of supplements: [] Nutritional Intake: [] IV Site: [] [place]inn Catheter: [] - Assessment/Plan Antibiotics: [] Assessment/Plan: [] Active and Suspected Problems (Last Reviewed 06/29/20 @ 09:18 by Leola Bhagat) COVID-19 (Acute) NSTEMI (non-ST elevated myocardial infarction) (Acute) covid with hypoxia, elevated trop, d-dimer 2.1, ESRD - Cont dex and remdesivir. On hep gtt. Sx started 07/21/20. Will follow
--- NOTE | 2020-07-26 16:20 | DIALYSIS ---
Hemodialysis complete. 3.25 hour run, 2k bath, net fluid removed = 1500 ml. Patient tolerated HD tx well. Right chest CVC: Site benign, biofilm dressing dry and intact, lumen flushed with NS, filled to volume with Heparin, clamped and capped. Patient complains of left hand painful numbness and tingling. Patient denies pain is due to cramping. Report given to primary RN, Mateo Chiu.
[2020-07-26] MEDS: Heparin 10,000 UNITS/10 ML Vial IV (17:12)
[2020-07-26] MEDS: Epoetin Alfa epbx 10,000 UNITS/ML 4000 UNIT IV (17:13)
[2020-07-26] MEDS: oxyCODONE 5 MG Tablet PO ×2 (17:29→21:40)
--- NOTE | 2020-07-26 17:43 | PN.CARD_ITS ---
Subjectve: The patient has been resting comfortably with no acute cardiovascular complaints. Objective: Vital Signs Temp Pulse Resp BP Pulse Ox 98.7 F 55 L 16 123/62 H 97 07/26/20 16:10 07/26/20 17:24 07/26/20 16:10 07/26/20 16:10 07/26/20 16:10 Oxygen Flow Rate (L/min) 2 Oxygen Delivery Method Nasal Cannula Weight: 143 lb 15.39 oz Body Mass Index (BMI) 21.5 Finger Stick Blood Glucose 480 Intake and Output for Last 24 Hours 07/24/20 07/25/20 07/26/20 23:59 23:59 23:59 Intake Total 32.83 / 32.83 1620.15 / 1620.15 1573.62 / 1573.62 Output Total 0 / 0 1500 / 1500 Balance 32.83 / 32.83 1620.15 / 1620.15 73.62 / 73.62 General: Awake, Cooperative, No Acute Distress HEENT: Atraumatic, Normocephalic, PERRL, EOMI, Sclera Non Icteric Neck: Supple, Good ROM, No JVD Lungs: Clear to auscultation Cardiovascular: Regular Rhythm, Normal S1, Normal S2 Abdomen: Bowel Sounds Present, Soft Extremities: No edema 07/25/20 : APTT 44.2 H 07/26/20 03:40: WBC 4.5, RBC 2.94 L, Hgb 8.8 L, Hct 27.5 L, MCV 93.5, MCH 29.9, MCHC 32.0, Plt Count 178, MPV 9.3 07/26/20 03:40: Sodium 135 L, Potassium 5.4 H, Chloride 100, Carbon Dioxide 26.0, Anion Gap 9, BUN 77 H, Creatinine 9.91 H*, Est GFR (MDRD) Af Amer 7 L, Est GFR (MDRD) Non-Af 6 L, BUN/Creatinine Ratio 7.8 L, Glucose 132 H, Calcium 7.8 L, Total Bilirubin 0.30 07/26/20 03:40: APTT 107.8 H* 07/26/20 12:40: APTT 40.0 H Rhythm: Sinus rhythm Medical Necessity - Tobacco Use Smoking Status: Former smoker Tobacco Use: Non-smoker Assessment/Plan 1. Non-ST segment elevation ND The patient appears to have, by cardiac enzymes, findings compatible with a non- ST segment elevation ND. At the moment he does not have any acute symptoms. He has no acute ECG changes. Thus it is unclear as to whether his findings are related to a type I event versus being a type II event being brought out by his underlying noncardiac/pulmonary condition. At the present time he is being monitored. His troponin I levels have decreased. He has undergone noninvasive and invasive evaluation in the past leading to his previous PCI and CABG. At the moment he will continue medical therapy as deemed appropriate. He can be considered for future evaluation of his cardiovascular status, once his COVID-19 resolves, with respect to further noninvasive studies such as echocardiogram to evaluate his left ventricular wall motion and systolic function and potential coronary angiography to evaluate his coronary/graft that is. Of note, based upon his history of peripheral vascular disease consideration to be given as to whether or not he is a candidate for any invasive cardiovascular studies at this institution versus being performed at a tertiary care center. 2. CAD status post CABG He has undergone evaluation and care as noted above. At the moment he appears without acute symptoms. His cardiac enzymes are trending down. His ECG demonstrates no acute changes. He will continue medical therapy. He can undergo future evaluation as noted above when he is recovered from COVID-19 barring some unforeseen acute unstable cardiovascular event in the interim. 3. Hyperlipidemia He will continue medical management. 4. Hypertension He will continue medical therapy and follow-up as needed. 5. Diabetes mellitus He has a history of diabetes mellitus. He will continue evaluation care per internal medicine. 6. Peripheral vascular disease He has a history of peripheral vascular disease involving the lower extremities. Again this could be challenging with respect to invasive cardiovascular evaluation and care. Thus consideration will have to be given as to whether or not, depending upon his cardiovascular needs in the future, whether additional evaluation can be performed locally or would need to be performed at a tertiary care center. 7. End-stage renal disease with chronic hemodialysis He will continue evaluation care by nephrology. 8. CVA He has a history of CVA. Again this may give caution with respect to further invasive cardiovascular evaluation. Thus it may be reasonable depending upon his cardiovascular clinical course that he be considered for further noninvasive evaluation such as echocardiogram and potentially pharmacologic stress nuclear imaging study in the future prior to an invasive evaluation. 9. COVID-19 He is COVID-19 positive. He is continuing medical therapy per internal medicine and infectious disease. Comment: The present time the patient will continue conservative medical management from a cardiac standpoint. He is not being planned for any additional cardiovascular testing at the time. Once he has recuperated from his COVID-19 status, barring unforeseen event in the interim, he can progress with additional noninvasive cardiovascular evaluation and potential invasive cardiovascular evaluation which would be determined as whether it could be performed locally or as noted above based upon concerns of his significant peripheral vascular disease at a tertiary care center. This note was generated using a voice recognition system and there may be incorrect words, spelling or punctuation that were not noted when reviewing the office note prior to saving.
[2020-07-26] MEDS: 0.9% Saline Lock 10 ML Syringe IV (18:14)
[2020-07-26] MEDS: Rivaroxaban 10 MG Tablet PO (18:14)
[2020-07-26 20:11] LABS: Bedside Glucose 126 mg/dL (70-110)
[2020-07-26] MEDS: Atorvastatin Calcium 80 MG Tablet PO (21:41)
[2020-07-26] MEDS: Tamsulosin HCl 0.4 MG Capsule 0.8 MG PO (21:41)
[2020-07-26] MEDS: Acetaminophen 325 MG Tablet 650 MG PO (21:43)
[2020-07-26] MEDS: Insulin Lispro 100 UNIT/ML INSULN.PEN SC (21:45)
[2020-07-26 22:36] LABS: Bedside Glucose 197 mg/dL (70-110)
[2020-07-27] VITALS (14 sets, daily range): BP systolic 113–128; BP diastolic 56–60; PULSE 50–94; RESP 16–18; TEMP 36.3–36.9; O2SAT 94–96
[2020-07-27] MEDS: hydrALAZINE 25 MG Tablet PO ×3 (05:20→21:40)
[2020-07-27 06:15] LABS: Hematocrit 28.2 % (40-54); Hemoglobin 8.9 g/dL (13.0-16.5); Mean Corp Hgb Conc 31.6 g/dL (32-36); Mean Corpuscular Hgb 29.1 pg (27.0-32.0); Mean Corpuscular Volume 92.2 fL (80-94); Mean Platelet Vol. 10.2 fl (6.2-12.0); Platelet Count 204 K/mm3 (150-450); RBC Distribution Width CV 14.6 % (11.6-14.6); RBC Distribution Width SD 49.1 fl (35.1-43.9); Red Blood Count 3.06 M/mm3 (4.6-6.2); White Blood Count 5.7 K/mm3 (4.4-11.0)
[2020-07-27 06:39] LABS: ALB/GLOB Ratio 0.8 RATIO (0.9-2.4); AST(SGOT) 38 U/L (15-37); Alanine Aminotransfer ALT/SGPT 16 U/L (16-61); Albumin, Serum 2.4 g/dL (3.2-5.0); Alkaline Phosphatase 39 U/L (45-117); Anion Gap 10 (5-15); BUN 48 mg/dL (7-18); BUN/Creat Ratio 7.8 RATIO (10-20); Calcium,Total 7.6 mg/dL (8.5-10.1); Chloride 100 mmol/L (98-107); Creatinine, Serum 6.13 mg/dL (0.70-1.30); EST Glomerular Filtration Rate 10 mL/min (>60); Est Glom Filt Rate - Afr Amer 12 mL/min (>60); Glucose 89 mg/dL (74-106); Potassium 4.4 mmol/L (3.5-5.1); Protein, Total 5.4 g/dL (6.4-8.2); Sodium Level 138 mmol/L (136-145)
[2020-07-27] MEDS: Calcium Acetate 667 MG Capsule PO ×3 (08:00→16:53)
[2020-07-27] MEDS: amLODIPine 5 MG Tablet PO (08:22)
[2020-07-27] MEDS: Finasteride 5 MG Tablet PO (08:22)
[2020-07-27] MEDS: dexAMETHasone 4 MG Tablet 6 MG PO (08:22)
[2020-07-27] MEDS: Rivaroxaban 10 MG Tablet PO (08:23)
[2020-07-27] MEDS: levETIRAcetam 500 MG Tablet PO ×2 (08:23→21:40)
[2020-07-27] MEDS: Carvedilol 12.5 MG Tablet PO ×2 (08:23→21:40)
[2020-07-27] MEDS: Pantoprazole Sodium 40 MG Tablet PO (08:24)
[2020-07-27] MEDS: Aspirin 81 MG TAB.CHEW PO (08:24)
[2020-07-27 08:36] LABS: Bedside Glucose 96 mg/dL (70-110)
--- NOTE | 2020-07-27 08:43 | CASEMGMT ---
Addendum entered by Aguilar Núñez 07/27/20 10:42: CASSANDRA CASTILLO Note: Called to the [facility] to speak with Dialysis Nurse. They are not available T/TH. Call to [facility] for status on referral. HEIDI Markham states they have not received any information from [facility] yet. Clinical information faxed to Shahrzad @ [facility] @ . Called again to [facility]. Rodrick is not in yet, and spoke with Mitch who states he will forward a message to Rodrick to be sure information is sent to [facility] # [id number]. Mitch checked records and states clinical file from yesterday was received. Jace TUCKER Original Note: CASSANDRA CASTILLO NOTE: message received from Rodrick @ [facility] stating pt is approved to go to [facility] but this is not the dc plan. Call returned to Rodrick @ , ext. [phone] to notify patient will be going to the [facility] and will have [facility] House. Jace TUCKER
[2020-07-27] MEDS: 0.9% Saline Lock 10 ML Syringe IV (10:34)
--- NOTE | 2020-07-27 11:19 | PCM.PN.REN ---
Patient Problems: Active and Suspected Problems (Last Reviewed 06/29/20 @ 09:18 by Leola Bhagat) COVID-19 (Acute) NSTEMI (non-ST elevated myocardial infarction) (Acute) Subjective: no new c/o now on RA Objective: Physical examination was deferred to preserve PPE and prevent further transmission of COVID-19 - Physical Exam Vitals/I&O's: Vital Signs Temp Pulse Resp BP Pulse Ox 97.9 F 94 18 117/59 L 94 07/27/20 10:30 07/27/20 10:30 07/27/20 10:30 07/27/20 10:30 07/27/20 10:30 Oxygen Flow Rate (L/min) 2 Oxygen Delivery Method Room Air Weight: 66.5 kg Body Mass Index (BMI) 21.5 Finger Stick Blood Glucose 480 Intake and Output for Last 24 Hours 07/25/20 07/26/20 07/27/20 23:59 23:59 23:59 Intake Total 1620.15 / 1620.15 1619.15 / 1619.15 810 / 810 Output Total 0 / 0 1500 / 1500 Balance 1620.15 / 1620.15 119.15 / 119.15 810 / 810 General: Alert, Cooperative HEENT: Atraumatic, EOMI Microbiology Past 72 Hours 07/24/20 16:15 Blood Culture (Wb) - Anticubital Right Blood Culture - Preliminary No growth in 48 hours. 07/24/20 14:20 Blood Culture (Wb) - Anticubital Right Blood Culture - Preliminary No growth in 48 hours. 07/24/20 15:00 Mucosa - Nasopharyngeal Respiratory Panel (PCR) - Final Laboratory Results 07/26/20 11:01: POC Glucose 118 H 07/26/20 12:40: APTT 40.0 H 07/26/20 17:22: POC Glucose 126 H 07/26/20 21:40: POC Glucose 197 H 07/27/20 05:36: WBC 5.7, RBC 3.06 L, Hgb 8.9 L, Hct 28.2 L, MCV 92.2, MCH 29.1, MCHC 31.6 L, RDW Std Deviation 49.1 H, RDW Coeff of Arturo 14.6, Plt Count 204, MPV 10.2 07/27/20 05:36: Sodium 138, Potassium 4.4, Chloride 100, Carbon Dioxide 28.0, Anion Gap 10, BUN 48 H, Creatinine 6.13 H, Estim Creat Clear Calc 10.40, Est GFR (MDRD) Af Amer 12 L, Est GFR (MDRD) Non-Af 10 L, BUN/Creatinine Ratio 7.8 L, Glucose 89, Calcium 7.6 L, Total Bilirubin 0.30, AST 38 H, ALT 16, Alkaline Phosphatase 39 L, Total Protein 5.4 L, Albumin 2.4 L, Globulin 3.0, Albumin/Globulin Ratio 0.8 L 07/27/20 07:54: POC Glucose 96 Current Medications Acetaminophen (Acetaminophen 325 Mg Tablet) 650 mg PO Q6H PRN PRN PRN Reason: Pain Score 1-10/Temp > 100.7 F Last Admin: 07/26/20 21:43 Dose: 650 mg Documented by: Al Hydroxide/Mg Hydroxide (Mag Hydrox/Al Hydrox/Simeth 30 Ml Udc) 30 ml PO Q6H PRN PRN PRN Reason: Gastric Burning Albuterol Sulfate (Albuterol Sulfate 8 Gm Inhaler (60 Puffs)) 1 puff INHALATION Q4H PRN PRN PRN Reason: Dyspnea, wheezing Amlodipine Besylate (Amlodipine 5 Mg Tablet) 5 mg PO DAILY [facility] Last Admin: 07/27/20 08:22 Dose: 5 mg Documented by: Aspirin (Aspirin 81 Mg Tab.Chew) 81 mg PO DAILY [facility] Last Admin: 07/27/20 08:24 Dose: 81 mg Documented by: Atorvastatin Calcium (Atorvastatin Calcium 80 Mg Tablet) 80 mg PO QHS [facility] Last Admin: 07/26/20 21:41 Dose: 80 mg Documented by: Calcium Acetate (Calcium Acetate 667 Mg Capsule) 667 mg PO TIDCM [facility] Last Admin: 07/27/20 08:00 Dose: 667 mg Documented by: Carvedilol (Carvedilol 12.5 Mg Tablet) 12.5 mg PO BID [facility] Last Admin: 07/27/20 08:23 Dose: 12.5 mg Documented by: Dexamethasone (Dexamethasone 4 Mg Tablet) 6 mg PO DAILY [facility] Stop: 08/03/20 10:01 Last Admin: 07/27/20 08:22 Dose: 6 mg Documented by: Finasteride (Finasteride 5 Mg Tablet) 5 mg PO DAILY [facility] Last Admin: 07/27/20 08:22 Dose: 5 mg Documented by: Guaifenesin (Guaifenesin 10 Ml Udc (200mg/10ml)) 20 ml PO Q4H PRN PRN PRN Reason: COUGH Hydralazine HCl (Hydralazine 25 Mg Tablet) 25 mg PO TID [facility] Last Admin: 07/27/20 05:20 Dose: 25 mg Documented by: Hydralazine HCl (Hydralazine 20 Mg/Ml Vial) 10 mg IV Q4H PRN PRN PRN Reason: SBP > 160 Sodium Chloride () 250 mls @ 15 mls/hr IV .[id number] PRN PRN Reason: Saline Flush Sodium Chloride () 250 mls @ 15 mls/hr IV .[id number] PRN PRN Reason: Additional IVPB Infusion Remdesivir 100 mg/ Sodium (Chloride) 250 mls @ 125 mls/hr IV DAILY [facility]; Protocol Stop: 07/29/20 11:59 Last Admin: 07/27/20 10:33 Dose: 125 mls/hr Documented by: Insulin Glargine (Insulin Glargine 100 Units/Ml Pen) 10 units SC 0700 [facility] Last Admin: 07/27/20 07:59 Dose: 10 u Documented by: Insulin Human Lispro (Insulin Lispro 100 Unit/Ml Insuln.Pen) 0 unit SC ACHS [facility]; Protocol Last Admin: 07/27/20 07:58 Dose: Not Given Documented by: Levetiracetam (Levetiracetam 500 Mg Tablet) 500 mg PO BID [facility] Last Admin: 07/27/20 08:23 Dose: 500 mg Documented by: Magnesium Hydroxide (Magnesium Hydroxide 30 Ml Udc) 30 ml PO DAILY PRN PRN PRN Reason: Constipation Melatonin (Melatonin 3 Mg Tablet) 3 mg PO QHS PRN PRN PRN Reason: INSOMNIA Morphine Sulfate (Morphine 2 Mg/Ml Syringe) 2 mg IV Q3H PRN PRN PRN Reason: Pain Score 6-10 Last Admin: 07/25/20 08:23 Dose: 2 mg Documented by: Nitroglycerin (Nitroglycerin (Inpatient Use) 0.4 Mg Tab.Subl) 0.4 mg SUBLINGUAL Q5M PRN PRN Reason: CARDIAC/CHEST PAIN Ondansetron HCl (Ondansetron 4 Mg/2 Ml Vial) 4 mg IV Q8H PRN PRN PRN Reason: NAUSEA/VOMITING Oxycodone HCl (Oxycodone 5 Mg Tablet) 5 mg PO Q4H PRN PRN PRN Reason: Pain Score 4-5 Last Admin: 07/26/20 21:40 Dose: 5 mg Documented by: Pantoprazole Sodium (Pantoprazole Sodium 40 Mg Tablet) 40 mg PO DAILY [facility] Last Admin: 07/27/20 08:24 Dose: 40 mg Documented by: Prochlorperazine Edisylate (Prochlorperazine 10 Mg/2 Ml Vial) 5 mg IV Q4H PRN PRN PRN Reason: Breakthrough Nausea/Vomiting Psyllium Hydrophilic Mucilloid (Psyllium 1 Packet) 1 packet PO DAILY PRN PRN PRN Reason: Constipation Rivaroxaban (Rivaroxaban 10 Mg Tablet) 10 mg PO DAILY [facility] Last Admin: 07/27/20 08:23 Dose: 10 mg Documented by: Senna/Docusate Sodium (Senna/Docusate Sodium 1 Tablet) 2 tablet PO BID PRN PRN PRN Reason: Constipation Sodium Chloride (0.9% Saline Lock 10 Ml Syringe) 10 - 40 ml IV UD PRN PRN Reason: SALINE FLUSH Last Admin: 07/27/20 10:34 Dose: 10 ml Documented by: Tamsulosin HCl (Tamsulosin Hcl 0.4 Mg Capsule) 0.8 mg PO QHS [facility] Last Admin: 07/26/20 21:41 Dose: 0.8 mg Documented by: Throat Lozenges (Benzocaine/Menthol 1 Lozenge) 1 lozenge MUCOUS MEM Q2H PRN PRN PRN Reason: SORE THROAT Medical Necessity - Tobacco Use Smoking Status: Former smoker Tobacco Use: Non-smoker Assessment/Plan All Active Problems (Last Reviewed 06/29/20 @ 09:18 by Leola Bhagat) Problem with dialysis access (Acute) COVID-19 (Acute) NSTEMI (non-ST elevated myocardial infarction) (Acute) Aspiration into airway (Ruled-out) Frequent falls (Acute) Generalized weakness (Acute) Debility (Acute) Frequent falls (Acute) ESRD continue Friday dialysis for dialysis tomorrow .Follow up blood cx since has has TDC.so far bcx negative 48 hours Anemia monitor RORY with HD HTN continue meds controlled CKD MBD binders monitor ca phos COVID-19 per primary
[2020-07-27 11:56] LABS: Bedside Glucose 97 mg/dL (70-110)
--- NOTE | 2020-07-27 14:53 | CASEMGMT ---
CASSANDRA CASTILLO Note. Call received from OCTAVIA Qivivo and he still had patient going to [facility]. CASSANDRA CASTILLO again verified with them that pt is to go the [facility] #[id number]. -Call to Leigh Markham) HEIDI @ [facility]. She is continuing to work on admission referral. No dc until referral is complete and first chair time is known. Jace CHAUHAN RN ACM
--- NOTE | 2020-07-27 16:21 | PN_ITS ---
Patient Problems: Active and Suspected Problems (Last Reviewed 06/29/20 @ 09:18 by Leola Bhagat) COVID-19 (Acute) NSTEMI (non-ST elevated myocardial infarction) (Acute) Subjective: Patient seen and examined. He felt well today and had no complaints. He was on room air. Review of systems otherwise negative. Patient told me that he wanted to be discharged home even though he came from a fpc. He said he was going to his daughter's house. Informed patient I would call his daughter to clarify this. Review of systems otherwise negative. Vitals/I&O's: Vital Signs Temp Pulse Resp BP Pulse Ox 97.9 F 94 18 117/59 L 95 07/27/20 10:30 07/27/20 12:47 07/27/20 10:30 07/27/20 10:30 07/27/20 15:46 Oxygen Flow Rate (L/min) 2 Oxygen Delivery Method Room Air Weight: 146 lb 9.718 oz Body Mass Index (BMI) 21.5 Finger Stick Blood Glucose 480 Intake and Output for Last 24 Hours 07/25/20 07/26/20 07/27/20 23:59 23:59 23:59 Intake Total 1620.15 / 1620.15 1619.15 / 1619.15 1060 / 1060 Output Total 0 / 0 1500 / 1500 Balance 1620.15 / 1620.15 119.15 / 119.15 1060 / 1060 General: Alert, Oriented x3, Cooperative, No apparent distress HEENT: Atraumatic, PERRLA, EOMI, Normocephalic Oral: Dry Mucosa Neck: Supple, No JVD, Negative Carotid Bruits Lungs: - - diminished breath sounds bibasally, no wheezes or crackles. on room air Cardiovascular: Regular rate, Regular Rhythm, Normal S1, Normal S2, No murmurs Abdomen: Bowel Sounds Present, Soft, Non Tender, Non-Distended, No Hepato- splenomegaly Extremities: No clubbing, No cyanosis, No edema, Capillary Refill Less than 3 Seconds Skin: No rashes, No breakdown Musculoskeletal: No Tenderness to Palpation of Joints or Extremities Lymphatic: No Cervical, Supraclavicular, or Inguinal Adenopathy Neurological: Cranial nerves II-XII grossly intact, Neuro grossly intact, Motor Exam 5/5 strength throughout Psych/Mental Status: Normal Affect, Appropriate, Alert and oriented to time, place, person, mood and affect, Tinel's sign over left wrist is positive Microbiology Past 72 Hours 07/24/20 16:15 Blood Culture (Wb) - Anticubital Right Blood Culture - Preliminary No growth in 48 hours. 07/24/20 14:20 Blood Culture (Wb) - Anticubital Right Blood Culture - Preliminary No growth in 48 hours. 07/24/20 15:00 Mucosa - Nasopharyngeal Respiratory Panel (PCR) - Final Laboratory Results 07/26/20 17:22: POC Glucose 126 H 07/26/20 21:40: POC Glucose 197 H 07/27/20 05:36: WBC 5.7, RBC 3.06 L, Hgb 8.9 L, Hct 28.2 L, MCV 92.2, MCH 29.1, MCHC 31.6 L, RDW Std Deviation 49.1 H, RDW Coeff of Arturo 14.6, Plt Count 204, MPV 10.2 07/27/20 05:36: Sodium 138, Potassium 4.4, Chloride 100, Carbon Dioxide 28.0, Anion Gap 10, BUN 48 H, Creatinine 6.13 H, Estim Creat Clear Calc 10.40, Est GFR (MDRD) Af Amer 12 L, Est GFR (MDRD) Non-Af 10 L, BUN/Creatinine Ratio 7.8 L, Glucose 89, Calcium 7.6 L, Total Bilirubin 0.30, AST 38 H, ALT 16, Alkaline Phosphatase 39 L, Total Protein 5.4 L, Albumin 2.4 L, Globulin 3.0, Albumin/Globulin Ratio 0.8 L 07/27/20 07:54: POC Glucose 96 07/27/20 11:36: POC Glucose 97 Current Medications Acetaminophen (Acetaminophen 325 Mg Tablet) 650 mg PO Q6H PRN PRN PRN Reason: Pain Score 1-10/Temp > 100.7 F Last Admin: 07/26/20 21:43 Dose: 650 mg Documented by: Al Hydroxide/Mg Hydroxide (Mag Hydrox/Al Hydrox/Simeth 30 Ml Udc) 30 ml PO Q6H PRN PRN PRN Reason: Gastric Burning Albuterol Sulfate (Albuterol Sulfate 8 Gm Inhaler (60 Puffs)) 1 puff INHALATION Q4H PRN PRN PRN Reason: Dyspnea, wheezing Amlodipine Besylate (Amlodipine 5 Mg Tablet) 5 mg PO DAILY [facility] Last Admin: 07/27/20 08:22 Dose: 5 mg Documented by: Aspirin (Aspirin 81 Mg Tab.Chew) 81 mg PO DAILY [facility] Last Admin: 07/27/20 08:24 Dose: 81 mg Documented by: Atorvastatin Calcium (Atorvastatin Calcium 80 Mg Tablet) 80 mg PO QHS [facility] Last Admin: 07/26/20 21:41 Dose: 80 mg Documented by: Calcium Acetate (Calcium Acetate 667 Mg Capsule) 667 mg PO TIDCM [facility] Last Admin: 07/27/20 12:47 Dose: 667 mg Documented by: Carvedilol (Carvedilol 12.5 Mg Tablet) 12.5 mg PO BID [facility] Last Admin: 07/27/20 08:23 Dose: 12.5 mg Documented by: Dexamethasone (Dexamethasone 4 Mg Tablet) 6 mg PO DAILY [facility] Stop: 08/03/20 10:01 Last Admin: 07/27/20 08:22 Dose: 6 mg Documented by: Finasteride (Finasteride 5 Mg Tablet) 5 mg PO DAILY [facility] Last Admin: 07/27/20 08:22 Dose: 5 mg Documented by: Guaifenesin (Guaifenesin 10 Ml Udc (200mg/10ml)) 20 ml PO Q4H PRN PRN PRN Reason: COUGH Hydralazine HCl (Hydralazine 25 Mg Tablet) 25 mg PO TID [facility] Last Admin: 07/27/20 12:47 Dose: 25 mg Documented by: Hydralazine HCl (Hydralazine 20 Mg/Ml Vial) 10 mg IV Q4H PRN PRN PRN Reason: SBP > 160 Sodium Chloride () 250 mls @ 15 mls/hr IV .[id number] PRN PRN Reason: Saline Flush Sodium Chloride () 250 mls @ 15 mls/hr IV .[id number] PRN PRN Reason: Additional IVPB Infusion Remdesivir 100 mg/ Sodium (Chloride) 250 mls @ 125 mls/hr IV DAILY [facility]; Protocol Stop: 07/29/20 11:59 Last Infusion: 07/27/20 12:33 Dose: Infused Documented by: Insulin Glargine (Insulin Glargine 100 Units/Ml Pen) 10 units SC 0700 [facility] Last Admin: 07/27/20 07:59 Dose: 10 u Documented by: Insulin Human Lispro (Insulin Lispro 100 Unit/Ml Insuln.Pen) 0 unit SC [facility]; Protocol Last Admin: 07/27/20 12:01 Dose: Not Given Documented by: Levetiracetam (Levetiracetam 500 Mg Tablet) 500 mg PO BID [facility] Last Admin: 07/27/20 08:23 Dose: 500 mg Documented by: Magnesium Hydroxide (Magnesium Hydroxide 30 Ml Udc) 30 ml PO DAILY PRN PRN PRN Reason: Constipation Melatonin (Melatonin 3 Mg Tablet) 3 mg PO QHS PRN PRN PRN Reason: INSOMNIA Morphine Sulfate (Morphine 2 Mg/Ml Syringe) 2 mg IV Q3H PRN PRN PRN Reason: Pain Score 6-10 Last Admin: 07/25/20 08:23 Dose: 2 mg Documented by: Nitroglycerin (Nitroglycerin (Inpatient Use) 0.4 Mg Tab.Subl) 0.4 mg SUBLINGUAL Q5M PRN PRN Reason: CARDIAC/CHEST PAIN Ondansetron HCl (Ondansetron 4 Mg/2 Ml Vial) 4 mg IV Q8H PRN PRN PRN Reason: NAUSEA/VOMITING Oxycodone HCl (Oxycodone 5 Mg Tablet) 5 mg PO Q4H PRN PRN PRN Reason: Pain Score 4-5 Last Admin: 07/26/20 21:40 Dose: 5 mg Documented by: Pantoprazole Sodium (Pantoprazole Sodium 40 Mg Tablet) 40 mg PO DAILY [facility] Last Admin: 07/27/20 08:24 Dose: 40 mg Documented by: Prochlorperazine Edisylate (Prochlorperazine 10 Mg/2 Ml Vial) 5 mg IV Q4H PRN PRN PRN Reason: Breakthrough Nausea/Vomiting Psyllium Hydrophilic Mucilloid (Psyllium 1 Packet) 1 packet PO DAILY PRN PRN PRN Reason: Constipation Rivaroxaban (Rivaroxaban 10 Mg Tablet) 10 mg PO DAILY [facility] Last Admin: 07/27/20 08:23 Dose: 10 mg Documented by: Senna/Docusate Sodium (Senna/Docusate Sodium 1 Tablet) 2 tablet PO BID PRN PRN PRN Reason: Constipation Sodium Chloride (0.9% Saline Lock 10 Ml Syringe) 10 - 40 ml IV UD PRN PRN Reason: SALINE FLUSH Last Admin: 07/27/20 10:34 Dose: 10 ml Documented by: Tamsulosin HCl (Tamsulosin Hcl 0.4 Mg Capsule) 0.8 mg PO QHS [facility] Last Admin: 07/26/20 21:41 Dose: 0.8 mg Documented by: Throat Lozenges (Benzocaine/Menthol 1 Lozenge) 1 lozenge MUCOUS MEM Q2H PRN PRN PRN Reason: SORE THROAT STROKE Vital Signs/Narrative: Vital Signs Pulse Pulse Ox 07/27/20 15:46 95 07/27/20 12:47 94 Medical Necessity - Tobacco Use Smoking Status: Former smoker Tobacco Use: Non-smoker Assessment/Plan All Active Problems (Last Reviewed 06/29/20 @ 09:18 by Leola Bhagat) Problem with dialysis access (Acute) COVID-19 (Acute) NSTEMI (non-ST elevated myocardial infarction) (Acute) Aspiration into airway (Ruled-out) Frequent falls (Acute) Generalized weakness (Acute) Debility (Acute) Frequent falls (Acute) #COVID 19 infection * Currently on p.o. dexamethasone 6 mg daily * ID on board. On remdesivir * Titrate oxygen to maintain saturation above 90%. * Breathing treatment with bronchodilators. * # Acute hypoxic respiratory insufficiency due to COVID * as above. Now on room air. * #Nonstemi * Troponin peaked at 2.6 and trended down slightly to 2.02. On aspirin, as well as high intensity statin and carvedilol * Cardiology on board- advocate medical management for now * once COVID resolves, to have further workup such as 2D echo, to help determine need for cardiac cath, per cardiology. * heparin drip discontinued, and he is now on xarelto 10mg daily. #carpal tunnel syndrome * still complains of mild numbness in left hand. Tinel's sign still positive * PT on board. may need a wrist splint * # type 2 diabetes mellitus: on lantus 10IU daily. ISS. accuchecks ACHS # ESRD on HD: Dialysis Wednesdays and Fridays. Nephrology on board. # CAD s/p CABG: On aspirin, beta-ginny and statin. # history of subdural hematoma: on keppra # PAD s/p bilateral stents: on statin, and carvedilol #GERD: On PPI #Hypertension: On Norvasc, and Coreg with IV hydralazine as needed. DVT prophylaxis; on on xarelto for thromboprophylaxis in light of elevated D dimer from covid. Position: I did speak to his daughter (Dinorah Mosquera [phone]) who told me that patient is supposed to go back to his fpc, not back to her house as he had said. Awaiting placement. Inpatient E&M: [id number] Subs Hosp L2
[2020-07-27 17:10] LABS: Bedside Glucose 114 mg/dL (70-110)
[2020-07-27] MEDS: oxyCODONE 5 MG Tablet PO (21:25)
[2020-07-27] MEDS: Tamsulosin HCl 0.4 MG Capsule 0.8 MG PO (21:39)
[2020-07-27] MEDS: Atorvastatin Calcium 80 MG Tablet PO (21:40)
[2020-07-27] MEDS: Insulin Lispro 100 UNIT/ML INSULN.PEN SC (21:58)
[2020-07-27 22:25] LABS: Bedside Glucose 218 mg/dL (70-110)
[2020-07-28] VITALS (16 sets, daily range): BP systolic 115–131; BP diastolic 53–60; PULSE 53–84; RESP 16–20; TEMP 36.2–36.8; O2SAT 93–97
[2020-07-28 07:14] LABS: Hematocrit 29.6 % (40-54); Hemoglobin 9.3 g/dL (13.0-16.5); Mean Corp Hgb Conc 31.4 g/dL (32-36); Mean Corpuscular Hgb 28.9 pg (27.0-32.0); Mean Corpuscular Volume 91.9 fL (80-94); Platelet Count 220 K/mm3 (150-450); RBC Distribution Width CV 14.4 % (11.6-14.6); RBC Distribution Width SD 48.8 fl (35.1-43.9); Red Blood Count 3.22 M/mm3 (4.6-6.2); White Blood Count 6.2 K/mm3 (4.4-11.0)
[2020-07-28] MEDS: hydrALAZINE 25 MG Tablet PO ×2 (07:20→22:03)
[2020-07-28 08:03] LABS: AST(SGOT) 23 U/L (15-37); Alanine Aminotransfer ALT/SGPT 15 U/L (16-61); Albumin, Serum 2.5 g/dL (3.2-5.0); Alkaline Phosphatase 40 U/L (45-117); Anion Gap 12 (5-15); BUN 80 mg/dL (7-18); BUN/Creat Ratio 9.7 RATIO (10-20); Calcium,Total 7.8 mg/dL (8.5-10.1); Chloride 99 mmol/L (98-107); Creatinine, Serum 8.28 mg/dL (0.70-1.30); EST Glomerular Filtration Rate 7 mL/min (>60); Est Glom Filt Rate - Afr Amer 8 mL/min (>60); Estimated Creatinine Clearance 7.68 ml/min; Globulin 2.6 g/dL (2.2-4.2); Glucose 113 mg/dL (74-106); Protein, Total 5.1 g/dL (6.4-8.2); Sodium Level 137 mmol/L (136-145)
--- NOTE | 2020-07-28 08:45 | CASEMGMT ---
RN CM Note:
--- NOTE | 2020-07-28 08:45 | CASEMGMT ---
Addendum entered by Aguilar Núñez 07/31/20 11:46: Kanchan Dialysis nurse @ [facility] updated phone # Addendum entered by Aguilar Núñez 07/28/20 11:11: Call received from Kanchan Dialysis nurse @ [facility] . Pt is cleared to start dialysis in house on Friday. Requesting today's dialysis run sheets when completed. DC Plan is for discharge today after dialysis if possible or tomorrow. Fax to: . Jace CHAUHAN RN AC Original Note: CASSANDRA CASTILLO Note: call received from Leigh @ [facility]. Pt is approved for dialysis @ [facility]- need to speak with Kanchan @ [facility] for start of care date. Patient will get dialysis @ [facility] today and anticipate start of care Friday if precert for SNF is approved by insurance. Attempted call to Kanchan, no answer and message with call back information given. Jace YODER
[2020-07-28] MEDS: Carvedilol 12.5 MG Tablet PO ×2 (09:07→22:03)
[2020-07-28] MEDS: dexAMETHasone 4 MG Tablet 6 MG PO (09:08)
[2020-07-28] MEDS: Rivaroxaban 10 MG Tablet PO (09:08)
[2020-07-28] MEDS: amLODIPine 5 MG Tablet PO (09:09)
[2020-07-28] MEDS: Finasteride 5 MG Tablet PO (09:09)
[2020-07-28] MEDS: Calcium Acetate 667 MG Capsule PO ×2 (09:10→16:40)
[2020-07-28] MEDS: levETIRAcetam 500 MG Tablet PO ×2 (09:10→22:04)
[2020-07-28] MEDS: Aspirin 81 MG TAB.CHEW PO (09:11)
[2020-07-28 10:40] LABS: Bedside Glucose 111 mg/dL (70-110)
--- NOTE | 2020-07-28 11:33 | CASEMGMT ---
Addendum entered by Christin Chun 07/28/20 17:13: Social Work After several attempts to speak with pt, SW was able to talk to pt on the phone. Pt stating that he will not go to a alf and will return home. SW explained that dgt is unable to care for pt at home but pt does not feel he needs care at home but can care for himself. SW reviewed therapy notes with pt and that pt required modAx2 to get out of chair and min Ax2 for ambulation and is able to only walk 5-10 feet. Pt then states he will go to his home and his 21 year old grandson can care for him. According to pt, he owns two homes on the same street and his dgt lives in one and he and grandson will live in the other. Pt continues to be agitated and adamant that he will not go to a alf. SW explained that dialysis has been changed and pt cannot go back to [facility] at this time. Pt stating that he will just not go to dialysis. HEIDI spoke with pt dgt on phone. Dgt states she did call pt but he was belligerent and hung up on her. Dgt states grandson is in fact only 19 and travels for work and is unable to care for pt. The home pt wants to return home to is in deplorable conditions with no heat, no gas and four steps to enter. Dgt states pt has threatened to call the police to kick her out of the house she is living in. Dgt again stating she is concerned for pt safety as he will not receive 24 hour care. Pt does have other children and Dinorah plans to call these siblings this evening to explain the situation and request sibling intervene tomorrow and call pt to discuss a safe discharge plan. Nursing notified of current situation with pt and family. SW will follow for d/c planning. GOLDIE Sandhu Addendum entered by Christin Chun 07/28/20 14:51: Social Work Return call from the [facility] and precert has been obtained. Physician notified pt can transfer to [facility] today after dialysis. HEIDI spoke to pt giselle Copeland about d/c and she is agreeable. Per nursing Pt is upset with dgt and does not want to go to SNF. Dgt informed and is aware and is stating pt needs more care than she can provide. Dgt and son in law both work and pt needs 24 hour care that they are unable to provide. HEIDI encouraged Dinorah to call pt and explain again why he cannot return home at this time. HEIDI attempted to call pt and he is not answering phone. GOLDIE Sandhu Original Note: Social Work Updated PT notes faxed to [facility] and HEIDI spoke with Jason in admissions. Precert will be started and expect approval today. Pt can transfer to [facility] later today when precert has been obtained. Dialysis will be given at hospital today and then again at [facility] onsite on Friday. 7000 convalescent form completed in [facility] system. VM left with pt dgt to discuss discharge. HEIDI attempted to call pt via room phone and cell phone with no answer. Plan: [facility], pending precert GOLDIE Sandhu
[2020-07-28] MEDS: Pantoprazole Sodium 40 MG Tablet PO (12:11)
--- NOTE | 2020-07-28 12:43 | PN.RENAL_ITS ---
Patient Problems: Active and Suspected Problems (Last Reviewed 06/29/20 @ 09:18 by Leola Bhagat) COVID-19 (Acute) NSTEMI (non-ST elevated myocardial infarction) (Acute) Subjective: The patient is still on room air no shortness of breath no complaints Objective: The physical examination was deferred to preserve PPE and prevent further transmission of COVID-19 - Physical Exam Vitals/I&O's: Vital Signs Temp Pulse Resp BP Pulse Ox 97.6 F L 53 L 18 115/58 L 93 07/28/20 11:40 07/28/20 11:40 07/28/20 11:40 07/28/20 11:40 07/28/20 11:40 Oxygen Flow Rate (L/min) 2 Oxygen Delivery Method Room Air Weight: 66.361 kg Body Mass Index (BMI) 21.5 Finger Stick Blood Glucose 480 Intake and Output for Last 24 Hours 07/26/20 07/27/20 07/28/20 23:59 23:59 23:59 Intake Total 1619.15 / 1619.15 1060 / 1110 50 / 50 Output Total 1500 / 1500 0 / 0 Balance 119.15 / 119.15 1060 / 1110 50 / 50 Microbiology Past 72 Hours 07/24/20 16:15 Blood Culture (Wb) - Anticubital Right Blood Culture - Preliminary No growth in 48 hours. 07/24/20 14:20 Blood Culture (Wb) - Anticubital Right Blood Culture - Preliminary No growth in 48 hours. Laboratory Results 07/27/20 16:52: POC Glucose 114 H 07/27/20 21:57: POC Glucose 218 H 07/28/20 06:15: WBC 6.2, RBC 3.22 L, Hgb 9.3 L, Hct 29.6 L, MCV 91.9, MCH 28.9, MCHC 31.4 L, RDW Std Deviation 48.8 H, RDW Coeff of Arturo 14.4, Plt Count 220, MPV 10.0 07/28/20 06:15: Sodium 137, Potassium 5.0, Chloride 99, Carbon Dioxide 26.0, Anion Gap 12, BUN 80 H, Creatinine 8.28 H*, Estim Creat Clear Calc 7.68, Est GFR (MDRD) Af Amer 8 L, Est GFR (MDRD) Non-Af 7 L, BUN/Creatinine Ratio 9.7 L, Glucose 113 H, Calcium 7.8 L, Total Bilirubin 0.20, AST 23, ALT 15 L, Alkaline Phosphatase 40 L, Total Protein 5.1 L, Albumin 2.5 L, Globulin 2.6, Albumin/Globulin Ratio 1.0 07/28/20 07:54: POC Glucose 111 H Current Medications Acetaminophen (Acetaminophen 325 Mg Tablet) 650 mg PO Q6H PRN PRN PRN Reason: Pain Score 1-10/Temp > 100.7 F Last Admin: 07/26/20 21:43 Dose: 650 mg Documented by: Al Hydroxide/Mg Hydroxide (Mag Hydrox/Al Hydrox/Simeth 30 Ml Udc) 30 ml PO Q6H PRN PRN PRN Reason: Gastric Burning Albuterol Sulfate (Albuterol Sulfate 8 Gm Inhaler (60 Puffs)) 1 puff INHALATION Q4H PRN PRN PRN Reason: Dyspnea, wheezing Amlodipine Besylate (Amlodipine 5 Mg Tablet) 5 mg PO DAILY [facility] Last Admin: 07/28/20 09:09 Dose: 5 mg Documented by: Aspirin (Aspirin 81 Mg Tab.Chew) 81 mg PO DAILY [facility] Last Admin: 07/28/20 09:11 Dose: 81 mg Documented by: Atorvastatin Calcium (Atorvastatin Calcium 80 Mg Tablet) 80 mg PO QHS [facility] Last Admin: 07/27/20 21:40 Dose: 80 mg Documented by: Calcium Acetate (Calcium Acetate 667 Mg Capsule) 667 mg PO TIDCM [facility] Last Admin: 07/28/20 09:10 Dose: 667 mg Documented by: Carvedilol (Carvedilol 12.5 Mg Tablet) 12.5 mg PO BID [facility] Last Admin: 07/28/20 09:07 Dose: 12.5 mg Documented by: Dexamethasone (Dexamethasone 4 Mg Tablet) 6 mg PO DAILY [facility] Stop: 08/03/20 10:01 Last Admin: 07/28/20 09:08 Dose: 6 mg Documented by: Finasteride (Finasteride 5 Mg Tablet) 5 mg PO DAILY [facility] Last Admin: 07/28/20 09:09 Dose: 5 mg Documented by: Guaifenesin (Guaifenesin 10 Ml Udc (200mg/10ml)) 20 ml PO Q4H PRN PRN PRN Reason: COUGH Hydralazine HCl (Hydralazine 25 Mg Tablet) 25 mg PO TID [facility] Last Admin: 07/28/20 07:20 Dose: 25 mg Documented by: Hydralazine HCl (Hydralazine 20 Mg/Ml Vial) 10 mg IV Q4H PRN PRN PRN Reason: SBP > 160 Sodium Chloride () 250 mls @ 15 mls/hr IV .[id number] PRN PRN Reason: Saline Flush Sodium Chloride () 250 mls @ 15 mls/hr IV .[id number] PRN PRN Reason: Additional IVPB Infusion Remdesivir 100 mg/ Sodium (Chloride) 250 mls @ 125 mls/hr IV DAILY [facility]; Protocol Stop: 07/29/20 11:59 Last Admin: 07/28/20 11:36 Dose: 125 mls/hr Documented by: Insulin Glargine (Insulin Glargine 100 Units/Ml Pen) 10 units SC 0700 [facility] Last Admin: 07/28/20 09:11 Dose: 10 u Documented by: Insulin Human Lispro (Insulin Lispro 100 Unit/Ml Insuln.Pen) 0 unit SC ACHS [facility]; Protocol Last Admin: 07/28/20 11:37 Dose: Not Given Documented by: Levetiracetam (Levetiracetam 500 Mg Tablet) 500 mg PO BID [facility] Last Admin: 07/28/20 09:10 Dose: 500 mg Documented by: Magnesium Hydroxide (Magnesium Hydroxide 30 Ml Udc) 30 ml PO DAILY PRN PRN PRN Reason: Constipation Melatonin (Melatonin 3 Mg Tablet) 3 mg PO QHS PRN PRN PRN Reason: INSOMNIA Morphine Sulfate (Morphine 2 Mg/Ml Syringe) 2 mg IV Q3H PRN PRN PRN Reason: Pain Score 6-10 Last Admin: 07/25/20 08:23 Dose: 2 mg Documented by: Nitroglycerin (Nitroglycerin (Inpatient Use) 0.4 Mg Tab.Subl) 0.4 mg SUBLINGUAL Q5M PRN PRN Reason: CARDIAC/CHEST PAIN Ondansetron HCl (Ondansetron 4 Mg/2 Ml Vial) 4 mg IV Q8H PRN PRN PRN Reason: NAUSEA/VOMITING Oxycodone HCl (Oxycodone 5 Mg Tablet) 5 mg PO Q4H PRN PRN PRN Reason: Pain Score 4-5 Last Admin: 07/27/20 21:25 Dose: 5 mg Documented by: Pantoprazole Sodium (Pantoprazole Sodium 40 Mg Tablet) 40 mg PO DAILY [facility] Last Admin: 07/28/20 12:11 Dose: 40 mg Documented by: Prochlorperazine Edisylate (Prochlorperazine 10 Mg/2 Ml Vial) 5 mg IV Q4H PRN PRN PRN Reason: Breakthrough Nausea/Vomiting Psyllium Hydrophilic Mucilloid (Psyllium 1 Packet) 1 packet PO DAILY PRN PRN PRN Reason: Constipation Rivaroxaban (Rivaroxaban 10 Mg Tablet) 10 mg PO DAILY [facility] Last Admin: 07/28/20 09:08 Dose: 10 mg Documented by: Senna/Docusate Sodium (Senna/Docusate Sodium 1 Tablet) 2 tablet PO BID PRN PRN PRN Reason: Constipation Sodium Chloride (0.9% Saline Lock 10 Ml Syringe) 10 - 40 ml IV UD PRN PRN Reason: SALINE FLUSH Last Admin: 07/27/20 10:34 Dose: 10 ml Documented by: Tamsulosin HCl (Tamsulosin Hcl 0.4 Mg Capsule) 0.8 mg PO QHS [facility] Last Admin: 07/27/20 21:39 Dose: 0.8 mg Documented by: Throat Lozenges (Benzocaine/Menthol 1 Lozenge) 1 lozenge MUCOUS MEM Q2H PRN PRN PRN Reason: SORE THROAT Medical Necessity - Tobacco Use Smoking Status: Former smoker Tobacco Use: Non-smoker Assessment/Plan All Active Problems (Last Reviewed 06/29/20 @ 09:18 by Leola Bhagat) Problem with dialysis access (Acute) COVID-19 (Acute) NSTEMI (non-ST elevated myocardial infarction) (Acute) Aspiration into airway (Ruled-out) Frequent falls (Acute) Generalized weakness (Acute) Debility (Acute) Frequent falls (Acute) ESRD continue Friday dialysis for dialysis today .Follow up blood cx since has has TDC.so far bcx negative 48 hours Anemia monitor RORY with HD HTN continue meds controlled CKD MBD binders monitor ca phos COVID-19 per primary
[2020-07-28 15:20] LABS: Bedside Glucose 129 mg/dL (70-110)
--- NOTE | 2020-07-28 15:27 | PCM.TXEXTCAR ---
- Diet 07/25/20 11:22 Diet: Carbohydrate Controlled Food consistency:: Regular Liquid Consistency:: Regular/Thin Dietary Modifications:: Sodium Restricted Is pt able to select menu?: No Diet Comments: please send glucerna with patient meals - Routine Orders/Code Status Enema Type: Fleetz Enema Frequency: Daily PRN Suppository Type: Dulcolax 10mg Suppository Frequency: Daily PRN O2 Frequency: PRN Keep PO Greater than or Equal to (%): 90 - Wound(s) left arm Wound Type: Surgical Incision - Therapies Weight Bearing: Weight bearing as tolerated Physical Therapy: Eval and Treat Occupational Therapy: Eval and Treat - Allergies/Procedures Done in Hospital Allergies/Adverse Reactions: Allergies No Known Allergies Allergy (Verified 07/24/20 14:06) Procedures: None - Type of Care/Length of Stay Estimated LOS: Convalescent Care Less Than 30 days Type of Care Needed: Skilled Rehab Potential: Fair Prognosis: Fair - Additional Orders/Day of Discharge Day of Discharge: 07/28/20 - Dietary and Speech Recommendations Dietitian Recommendations/Changes: Will continue CHO Control/ Sodium restricted diet d/t pmhx. Rec continue ONS w/ meals. - Follow Up Care Primary Care Physician: Paul Martinez Chi, MD [Primary Care Provider] - Please follow up with your Primary Care Physician in: 1-2 weeks
--- NOTE | 2020-07-28 15:50 | DIALYSIS ---
Hemodialysis completed, Fluid removed was 1 liter. Patient tolerated tx well. See flow sheet for details.
--- NOTE | 2020-07-28 15:52 | EKG12_ITS ---
Test Reason : PVC'S Blood Pressure : / mmHG Vent. Rate : 057 BPM Atrial Rate : 057 BPM P-R Int : 336 ms QRS Dur : 140 ms QT Int : 520 ms P-R-T Axes : 054 -62 -29 degrees QTc Int : 506 ms Sinus bradycardia with 1st degree A-V block with occasional Premature ventricular complexes Left axis deviation Right bundle branch block Inferior infarct Age undetermined Abnormal ECG Confirmed by JOHN SARMIENTO, LUIS ([id number]), editor at large KILO MACDONALD ([id number]) on 08/03/2020 8:51:58 AM Referred By: MERRITT Confirmed By:LUIS LOPEZ MD
--- NOTE | 2020-07-28 15:57 | PCM.DC.SUM ---
Discharge Date and Diagnosis - Problem List Patient Problems: Active and Suspected Problems (Last Reviewed 06/29/20 @ 09:18 by Leola Bhagat) COVID-19 (Acute) NSTEMI (non-ST elevated myocardial infarction) (Acute) Date of Admission: 07/24/20 Date of Discharge: 07/28/20 - Primary Discharge Diagnosis Acute Problems: Active Problems (Last Reviewed 06/29/20 @ 09:18 by Leola Bhagat) COVID-19 (Acute) NSTEMI (non-ST elevated myocardial infarction) (Acute) - Secondary Discharge Diagnosis Chronic Problems: Chronic Problems (Last Reviewed 06/29/20 @ 09:18 by Leola Bhagat) End-stage renal disease on hemodialysis (Chronic) End stage renal disease on dialysis (Chronic) Depression (Chronic) BPH with obstruction/lower urinary tract symptoms (Chronic) Left ventricular hypertrophy (Chronic) Diverticulosis (Chronic) Tobacco dependence in remission (Chronic) smoked for only 3 hours hx of APLL (Chronic) Left leg- 05/16/19 left superficial femoral artery and left popliteal artery angioplasty by Dr. Kamara History of angioplasty of peripheral vessel (Chronic ~2017) 01/01/16 L Peroneal and L superficial femoral A. angioplasty by Dr. Kamara HTN (hypertension) (Chronic) History of stroke (Chronic) Left parietal in August of 2017 Peripheral vascular disease (Chronic) BL LE PVD - status post angioplasty on 3 occasions Status post coronary artery bypass graft (Chronic) 3 vessel CABG per pt in 2014? Diabetes mellitus, type 2 (Chronic) historically poorly controlled due to non-compliance GERD (gastroesophageal reflux disease) (Chronic) Hyperlipidemia (Chronic) CAD (coronary artery disease) (Chronic) Hospital Course and Treatment Imaging Results: Diagnostic Data Chest X-Ray 07/24/20 14:16 IMPRESSION: Hyperinflation. The lungs are clear. Electronically Signed: Attila Cabello, at 15:43 EST , Service support , CARDIOLOGY- Dr Tucker ID- Dr Dorantes nephrology- Dr Reese Operations: None Procedures: None Summary of Care Provided: The patient is a 69 year old M with an extensive past medical history who was admitted through the ED on 07/24/2020 with a complaint of weakness, debility, cough with shortness of breath and confusion. He had had fever of 101 Fahrenheit at dialysis. He had been tested a few days prior to admission for Covid and was negative. On admission, troponin was 1.18 and Covid test done was positive. Chest x-ray showed hyperinflation with no acute cardiopulmonary findings. EKG showed normal sinus rhythm with right bundle branch block which was old. Was admitted and managed for non-STEMI and COVID-19 infection. He was started on dexamethasone and oxygen as needed to maintain saturation above 90%. Nephrology was consulted for ESRD for hemodialysis. Disease was also consulted and patient was started on dexamethasone. He was also started on heparin drip and started on remdesivir. Patient was gradually weaned off of oxygen and did well on room air. Cardiology reviewed patient and thought that his non-STEMI was likely a type II NC due to demand ischemia. Plan was for patient to get further work-up once Covid infection had resolved. Patient remained stable. He did complain of some numbness sensation in his left wrist. Phalen's and Tinel signs were positive and indicated of carpal tunnel syndrome. He did have a history of carpal tunnel syndrome in the left wrist and said he had had surgery for it in the past. PT/OT on board and patient to have splint on left wrist as needed. [facility]. He was transitioned off heparin drip onto Xarelto 20 mg daily and he was discharged on a 2-week dose of Xarelto 20 mg daily on account of his elevated D-dimer due to Covid. He is follow-up with his primary care doctor and is also to follow-up with cardiology for further work-up of his non-STEMI once Covid infection is resolved. Patient seen and examined. He pain of pain and tingling in his left wrist. Review of systems otherwise negative. Labs and vitals reviewed. Home medication reviewed and reconciled. O/E: Vital Signs Temp Pulse Resp BP Pulse Ox 97.6 F L 57 L 18 115/58 L 93 07/28/20 11:40 07/28/20 14:55 07/28/20 11:40 07/28/20 11:40 07/28/20 11:40 [] General: Alert, Oriented x3, Cooperative, No apparent distress HEENT: Atraumatic, PERRLA, EOMI, Normocephalic Oral: Dry Mucosa Neck: Supple, No JVD, Negative Carotid Bruits Lungs: - - diminished breath sounds bibasally, no wheezes or crackles. on room air Cardiovascular: Regular rate, Regular Rhythm, Normal S1, Normal S2, No murmurs Abdomen: Bowel Sounds Present, Soft, Non Tender, Non-Distended, No Hepato-splenomegaly Extremities: No clubbing, No cyanosis, No edema, Capillary Refill Less than 3 Seconds Skin: No rashes, No breakdown Musculoskeletal: No Tenderness to Palpation of Joints or Extremities Lymphatic: No Cervical, Supraclavicular, or Inguinal Adenopathy Neurological: Cranial nerves II-XII grossly intact, Neuro grossly intact, Motor Exam 5/5 strength throughout Psych/Mental Status: Normal Affect, Appropriate, Alert and oriented to time, place, person, mood and affect, Phalen's and Tinel's sign over left wrist is positive Plan is for discharge to jail today. Patient remained in isolation for 20 days after symptoms started(07/21/2020), so isolation will end on 08/10/2020. Patient Problems: Active and Suspected Problems (Last Reviewed 06/29/20 @ 09:18 by Leola Bhagat) COVID-19 (Acute) NSTEMI (non-ST elevated myocardial infarction) (Acute) - Physical Exam Vitals/I&O's: Vital Signs Temp Pulse Resp BP Pulse Ox 97.6 F L 57 L 18 115/58 L 93 07/28/20 11:40 07/28/20 14:55 07/28/20 11:40 07/28/20 11:40 07/28/20 11:40 Oxygen Flow Rate (L/min) 2 Oxygen Delivery Method Room Air Weight: 146 lb 4.8 oz Body Mass Index (BMI) 21.5 Finger Stick Blood Glucose 480 Intake and Output for Last 24 Hours 07/26/20 07/27/20 07/28/20 23:59 23:59 23:59 Intake Total 1619.15 / 1619.15 1060 / 1110 300 / 300 Output Total 1500 / 1500 1000 / 1000 Balance 119.15 / 119.15 1060 / 1110 -700 / -700 Microbiology Past 72 Hours 07/24/20 16:15 Blood Culture (Wb) - Anticubital Right Blood Culture - Preliminary No growth in 48 hours. 07/24/20 14:20 Blood Culture (Wb) - Anticubital Right Blood Culture - Preliminary No growth in 48 hours. Laboratory Results 07/27/20 16:52: POC Glucose 114 H 07/27/20 21:57: POC Glucose 218 H 07/28/20 06:15: WBC 6.2, RBC 3.22 L, Hgb 9.3 L, Hct 29.6 L, MCV 91.9, MCH 28.9, MCHC 31.4 L, RDW Std Deviation 48.8 H, RDW Coeff of Arturo 14.4, Plt Count 220, MPV 10.0 07/28/20 06:15: Sodium 137, Potassium 5.0, Chloride 99, Carbon Dioxide 26.0, Anion Gap 12, BUN 80 H, Creatinine 8.28 H*, Estim Creat Clear Calc 7.68, Est GFR (MDRD) Af Amer 8 L, Est GFR (MDRD) Non-Af 7 L, BUN/Creatinine Ratio 9.7 L, Glucose 113 H, Calcium 7.8 L, Total Bilirubin 0.20, AST 23, ALT 15 L, Alkaline Phosphatase 40 L, Total Protein 5.1 L, Albumin 2.5 L, Globulin 2.6, Albumin/Globulin Ratio 1.0 07/28/20 07:54: POC Glucose 111 H 07/28/20 11:33: POC Glucose 129 H Current Medications Acetaminophen (Acetaminophen 325 Mg Tablet) 650 mg PO Q6H PRN PRN PRN Reason: Pain Score 1-10/Temp > 100.7 F Last Admin: 07/26/20 21:43 Dose: 650 mg Documented by: Al Hydroxide/Mg Hydroxide (Mag Hydrox/Al Hydrox/Simeth 30 Ml Udc) 30 ml PO Q6H PRN PRN PRN Reason: Gastric Burning Albuterol Sulfate (Albuterol Sulfate 8 Gm Inhaler (60 Puffs)) 1 puff INHALATION Q4H PRN PRN PRN Reason: Dyspnea, wheezing Amlodipine Besylate (Amlodipine 5 Mg Tablet) 5 mg PO DAILY [facility] Last Admin: 07/28/20 09:09 Dose: 5 mg Documented by: Aspirin (Aspirin 81 Mg Tab.Chew) 81 mg PO DAILY [facility] Last Admin: 07/28/20 09:11 Dose: 81 mg Documented by: Atorvastatin Calcium (Atorvastatin Calcium 80 Mg Tablet) 80 mg PO QHS [facility] Last Admin: 07/27/20 21:40 Dose: 80 mg Documented by: Calcium Acetate (Calcium Acetate 667 Mg Capsule) 667 mg PO TIDCM [facility] Last Admin: 07/28/20 14:35 Dose: Not Given Documented by: Carvedilol (Carvedilol 12.5 Mg Tablet) 12.5 mg PO BID [facility] Last Admin: 07/28/20 09:07 Dose: 12.5 mg Documented by: Dexamethasone (Dexamethasone 4 Mg Tablet) 6 mg PO DAILY [facility] Stop: 08/03/20 10:01 Last Admin: 07/28/20 09:08 Dose: 6 mg Documented by: Finasteride (Finasteride 5 Mg Tablet) 5 mg PO DAILY [facility] Last Admin: 07/28/20 09:09 Dose: 5 mg Documented by: Guaifenesin (Guaifenesin 10 Ml Udc (200mg/10ml)) 20 ml PO Q4H PRN PRN PRN Reason: COUGH Hydralazine HCl (Hydralazine 25 Mg Tablet) 25 mg PO TID [facility] Last Admin: 07/28/20 15:17 Dose: Not Given Documented by: Hydralazine HCl (Hydralazine 20 Mg/Ml Vial) 10 mg IV Q4H PRN PRN PRN Reason: SBP > 160 Sodium Chloride () 250 mls @ 15 mls/hr IV .[id number] PRN PRN Reason: Saline Flush Sodium Chloride () 250 mls @ 15 mls/hr IV .[id number] PRN PRN Reason: Additional IVPB Infusion Remdesivir 100 mg/ Sodium (Chloride) 250 mls @ 125 mls/hr IV DAILY [facility]; Protocol Stop: 07/29/20 11:59 Last Infusion: 07/28/20 13:40 Dose: Infused Documented by: Insulin Glargine (Insulin Glargine 100 Units/Ml Pen) 10 units SC 0700 [facility] Last Admin: 07/28/20 09:11 Dose: 10 u Documented by: Insulin Human Lispro (Insulin Lispro 100 Unit/Ml Insuln.Pen) 0 unit SC ACHS [facility]; Protocol Last Admin: 07/28/20 11:37 Dose: Not Given Documented by: Levetiracetam (Levetiracetam 500 Mg Tablet) 500 mg PO BID [facility] Last Admin: 07/28/20 09:10 Dose: 500 mg Documented by: Magnesium Hydroxide (Magnesium Hydroxide 30 Ml Udc) 30 ml PO DAILY PRN PRN PRN Reason: Constipation Melatonin (Melatonin 3 Mg Tablet) 3 mg PO QHS PRN PRN PRN Reason: INSOMNIA Nitroglycerin (Nitroglycerin (Inpatient Use) 0.4 Mg Tab.Subl) 0.4 mg SUBLINGUAL Q5M PRN PRN Reason: CARDIAC/CHEST PAIN Ondansetron HCl (Ondansetron 4 Mg/2 Ml Vial) 4 mg IV Q8H PRN PRN PRN Reason: NAUSEA/VOMITING Oxycodone HCl (Oxycodone 5 Mg Tablet) 5 mg PO Q4H PRN PRN PRN Reason: Pain Score 4-5 Last Admin: 07/27/20 21:25 Dose: 5 mg Documented by: Pantoprazole Sodium (Pantoprazole Sodium 40 Mg Tablet) 40 mg PO DAILY [facility] Last Admin: 07/28/20 12:11 Dose: 40 mg Documented by: Prochlorperazine Edisylate (Prochlorperazine 10 Mg/2 Ml Vial) 5 mg IV Q4H PRN PRN PRN Reason: Breakthrough Nausea/Vomiting Psyllium Hydrophilic Mucilloid (Psyllium 1 Packet) 1 packet PO DAILY PRN PRN PRN Reason: Constipation Rivaroxaban (Rivaroxaban 10 Mg Tablet) 10 mg PO DAILY [facility] Last Admin: 07/28/20 09:08 Dose: 10 mg Documented by: Senna/Docusate Sodium (Senna/Docusate Sodium 1 Tablet) 2 tablet PO BID PRN PRN PRN Reason: Constipation Sodium Chloride (0.9% Saline Lock 10 Ml Syringe) 10 - 40 ml IV UD PRN PRN Reason: SALINE FLUSH Last Admin: 07/27/20 10:34 Dose: 10 ml Documented by: Tamsulosin HCl (Tamsulosin Hcl 0.4 Mg Capsule) 0.8 mg PO QHS [facility] Last Admin: 07/27/20 21:39 Dose: 0.8 mg Documented by: Throat Lozenges (Benzocaine/Menthol 1 Lozenge) 1 lozenge MUCOUS MEM Q2H PRN PRN PRN Reason: SORE THROAT Discharge Diet: Low fat/ Low Cholesterol Weight Bearing Status: Weight bearing as tolerated Home Medications: Medications to take at Discharge Finasteride 5 mg PO DAILY 07/30/19 Amlodipine [Norvasc] 5 mg PO DAILY 05/26/20 Aspirin [Aspirin, Baby] 81 mg PO DAILY@0800 05/26/20 Atorvastatin Calcium 80 mg PO QHS 05/26/20 levETIRAcetam tablet [Keppra tablet] 500 mg PO BID 05/26/20 Carvedilol [Coreg] 12.5 mg PO BID 05/27/20 Insulin Glargine,Hum.rec.anlog [Basaglar Kwikpen U-100] 10 unit SQ BREAKFAST 06/07/20 Fenofibrate,Micronized [Fenofibrate] 67 mg PO DAILY 06/08/20 Calcium Acetate [Phoslo Gel Cap] 667 mg PO TIDCM 07/12/20 Hydralazine HCl 25 mg PO TID 07/24/20 Pantoprazole Sodium [Protonix] 40 mg PO DAILY 07/24/20 Tamsulosin HCl [Flomax] 0.8 mg PO QHS 07/24/20 Dexamethasone [Decadron] 6 mg PO DAILY #6 tab 07/28/20 Rivaroxaban [Xarelto] 10 mg PO DAILY #14 tab 07/28/20 Following Prescriptions Were Given to Patient: Dexamethasone [Decadron] 6 mg PO DAILY #6 tab Prescription Printed Rivaroxaban [Xarelto] 10 mg PO DAILY #14 tab Prescription Printed Primary Care Physician: Paul Martinez Chi, MD [Primary Care Provider] - Please follow up with your Primary Care Physician in: 1-2 weeks Patient Instructions: Coronavirus Disease 2019 (COVID-19): Overview, Coronavirus Disease 2019 (COVID-19): Caring for Yourself or Others Disposition: Half-Way facility Minutes spent on discharge:: 50 Patient Condition:: Stable Medical Necessity - Tobacco Use Smoking Status: Former smoker Tobacco Use: Non-smoker Meaningful Use Info Meaningful Use Diagnoses (Choose all that apply): AMI - AMI/Post PCI/Angioplasty Aspirin given w/in 24hrs of arrival?: Yes ASA at discharge?: Yes Antiplatelet Therapy at Discharge:: No Reason Antiplatelet Therapy not ordered:: on anticoagulation Statins at discharge?: Yes Sudhakar/ARB at discharge?: No Reason Sudhakar/ARB not ordered:: Worsening renal function Beta Laz at discharge?: Yes Done w/ Acute NC measure.: Yes Inpatient E&M: 86361 Disch Hosp
--- NOTE | 2020-07-28 16:01 | PCM.PN.ID ---
Patient Problems: Active and Suspected Problems (Last Reviewed 06/29/20 @ 09:18 by Leola Bhagat) COVID-19 (Acute) NSTEMI (non-ST elevated myocardial infarction) (Acute) Subjective: Feeling good, transfer planned, no fever - Physical Exam Vitals/I&O's: Vital Signs Temp Pulse Resp BP Pulse Ox 97.6 F L 57 L 18 115/58 L 93 07/28/20 11:40 07/28/20 14:55 07/28/20 11:40 07/28/20 11:40 07/28/20 11:40 Oxygen Flow Rate (L/min) 2 Oxygen Delivery Method Room Air Weight: 66.361 kg Body Mass Index (BMI) 21.5 Finger Stick Blood Glucose 480 Intake and Output for Last 24 Hours 07/26/20 07/27/20 07/28/20 23:59 23:59 23:59 Intake Total 1619.15 / 1619.15 1060 / 1110 300 / 300 Output Total 1500 / 1500 1000 / 1000 Balance 119.15 / 119.15 1060 / 1110 -700 / -700 General: Alert, Cooperative, No apparent distress Lungs: Clear to auscultation, Diminished Cardiovascular: Regular rate, Regular Rhythm Abdomen: Soft, Non Tender, Non-Distended Skin: No rashes Microbiology Past 72 Hours 07/24/20 16:15 Blood Culture (Wb) - Anticubital Right Blood Culture - Preliminary No growth in 48 hours. 07/24/20 14:20 Blood Culture (Wb) - Anticubital Right Blood Culture - Preliminary No growth in 48 hours. Laboratory Results 07/27/20 16:52: POC Glucose 114 H 07/27/20 21:57: POC Glucose 218 H 07/28/20 06:15: WBC 6.2, RBC 3.22 L, Hgb 9.3 L, Hct 29.6 L, MCV 91.9, MCH 28.9, MCHC 31.4 L, RDW Std Deviation 48.8 H, RDW Coeff of Arturo 14.4, Plt Count 220, MPV 10.0 07/28/20 06:15: Sodium 137, Potassium 5.0, Chloride 99, Carbon Dioxide 26.0, Anion Gap 12, BUN 80 H, Creatinine 8.28 H*, Estim Creat Clear Calc 7.68, Est GFR (MDRD) Af Amer 8 L, Est GFR (MDRD) Non-Af 7 L, BUN/Creatinine Ratio 9.7 L, Glucose 113 H, Calcium 7.8 L, Total Bilirubin 0.20, AST 23, ALT 15 L, Alkaline Phosphatase 40 L, Total Protein 5.1 L, Albumin 2.5 L, Globulin 2.6, Albumin/Globulin Ratio 1.0 07/28/20 07:54: POC Glucose 111 H 07/28/20 11:33: POC Glucose 129 H Current Medications Acetaminophen (Acetaminophen 325 Mg Tablet) 650 mg PO Q6H PRN PRN PRN Reason: Pain Score 1-10/Temp > 100.7 F Last Admin: 07/26/20 21:43 Dose: 650 mg Documented by: Al Hydroxide/Mg Hydroxide (Mag Hydrox/Al Hydrox/Simeth 30 Ml Udc) 30 ml PO Q6H PRN PRN PRN Reason: Gastric Burning Albuterol Sulfate (Albuterol Sulfate 8 Gm Inhaler (60 Puffs)) 1 puff INHALATION Q4H PRN PRN PRN Reason: Dyspnea, wheezing Amlodipine Besylate (Amlodipine 5 Mg Tablet) 5 mg PO DAILY [facility] Last Admin: 07/28/20 09:09 Dose: 5 mg Documented by: Aspirin (Aspirin 81 Mg Tab.Chew) 81 mg PO DAILY [facility] Last Admin: 07/28/20 09:11 Dose: 81 mg Documented by: Atorvastatin Calcium (Atorvastatin Calcium 80 Mg Tablet) 80 mg PO QHS [facility] Last Admin: 07/27/20 21:40 Dose: 80 mg Documented by: Calcium Acetate (Calcium Acetate 667 Mg Capsule) 667 mg PO TIDCM [facility] Last Admin: 07/28/20 14:35 Dose: Not Given Documented by: Carvedilol (Carvedilol 12.5 Mg Tablet) 12.5 mg PO BID [facility] Last Admin: 07/28/20 09:07 Dose: 12.5 mg Documented by: Dexamethasone (Dexamethasone 4 Mg Tablet) 6 mg PO DAILY [facility] Stop: 08/03/20 10:01 Last Admin: 07/28/20 09:08 Dose: 6 mg Documented by: Finasteride (Finasteride 5 Mg Tablet) 5 mg PO DAILY [facility] Last Admin: 07/28/20 09:09 Dose: 5 mg Documented by: Guaifenesin (Guaifenesin 10 Ml Udc (200mg/10ml)) 20 ml PO Q4H PRN PRN PRN Reason: COUGH Hydralazine HCl (Hydralazine 25 Mg Tablet) 25 mg PO TID [facility] Last Admin: 07/28/20 15:17 Dose: Not Given Documented by: Hydralazine HCl (Hydralazine 20 Mg/Ml Vial) 10 mg IV Q4H PRN PRN PRN Reason: SBP > 160 Sodium Chloride () 250 mls @ 15 mls/hr IV .[id number] PRN PRN Reason: Saline Flush Sodium Chloride () 250 mls @ 15 mls/hr IV .[id number] PRN PRN Reason: Additional IVPB Infusion Remdesivir 100 mg/ Sodium (Chloride) 250 mls @ 125 mls/hr IV DAILY [facility]; Protocol Stop: 07/29/20 11:59 Last Infusion: 07/28/20 13:40 Dose: Infused Documented by: Insulin Glargine (Insulin Glargine 100 Units/Ml Pen) 10 units SC 0700 [facility] Last Admin: 07/28/20 09:11 Dose: 10 u Documented by: Insulin Human Lispro (Insulin Lispro 100 Unit/Ml Insuln.Pen) 0 unit SC [facility]; Protocol Last Admin: 07/28/20 11:37 Dose: Not Given Documented by: Levetiracetam (Levetiracetam 500 Mg Tablet) 500 mg PO BID [facility] Last Admin: 07/28/20 09:10 Dose: 500 mg Documented by: Magnesium Hydroxide (Magnesium Hydroxide 30 Ml Udc) 30 ml PO DAILY PRN PRN PRN Reason: Constipation Melatonin (Melatonin 3 Mg Tablet) 3 mg PO QHS PRN PRN PRN Reason: INSOMNIA Nitroglycerin (Nitroglycerin (Inpatient Use) 0.4 Mg Tab.Subl) 0.4 mg SUBLINGUAL Q5M PRN PRN Reason: CARDIAC/CHEST PAIN Ondansetron HCl (Ondansetron 4 Mg/2 Ml Vial) 4 mg IV Q8H PRN PRN PRN Reason: NAUSEA/VOMITING Oxycodone HCl (Oxycodone 5 Mg Tablet) 5 mg PO Q4H PRN PRN PRN Reason: Pain Score 4-5 Last Admin: 07/27/20 21:25 Dose: 5 mg Documented by: Pantoprazole Sodium (Pantoprazole Sodium 40 Mg Tablet) 40 mg PO DAILY [facility] Last Admin: 07/28/20 12:11 Dose: 40 mg Documented by: Prochlorperazine Edisylate (Prochlorperazine 10 Mg/2 Ml Vial) 5 mg IV Q4H PRN PRN PRN Reason: Breakthrough Nausea/Vomiting Psyllium Hydrophilic Mucilloid (Psyllium 1 Packet) 1 packet PO DAILY PRN PRN PRN Reason: Constipation Rivaroxaban (Rivaroxaban 10 Mg Tablet) 10 mg PO DAILY [facility] Last Admin: 07/28/20 09:08 Dose: 10 mg Documented by: Senna/Docusate Sodium (Senna/Docusate Sodium 1 Tablet) 2 tablet PO BID PRN PRN PRN Reason: Constipation Sodium Chloride (0.9% Saline Lock 10 Ml Syringe) 10 - 40 ml IV UD PRN PRN Reason: SALINE FLUSH Last Admin: 07/27/20 10:34 Dose: 10 ml Documented by: Tamsulosin HCl (Tamsulosin Hcl 0.4 Mg Capsule) 0.8 mg PO QHS [facility] Last Admin: 07/27/20 21:39 Dose: 0.8 mg Documented by: Throat Lozenges (Benzocaine/Menthol 1 Lozenge) 1 lozenge MUCOUS MEM Q2H PRN PRN PRN Reason: SORE THROAT Medical Necessity - Tobacco Use Smoking Status: Former smoker Tobacco Use: Non-smoker Route of nutrition/ use of supplements: [] Nutritional Intake: [] IV Site: [] [place] Catheter: [] - Assessment/Plan Antibiotics: [] Assessment/Plan: [] Active and Suspected Problems (Last Reviewed 06/29/20 @ 09:18 by Leola Bhagat) COVID-19 (Acute) NSTEMI (non-ST elevated myocardial infarction) (Acute) covid with hypoxia, elevated trop, d-dimer 2.1, ESRD - Cont dex for 10 days total and remdesivir while inpatient. Sx started 07/21/20. Quarantine ends 08/10/20. Will follow as needed
--- NOTE | 2020-07-28 16:17 | CASEMGMT ---
RN NOte: if patient refuses transfer to SNF, will need to stay in hospital for dialysis on Friday as his [facility] Dialysis chair time has been cancelled and switched to the [facility]. Jace CHAUHAN RN AC
[2020-07-28 16:40] LABS: Bedside Glucose 203 mg/dL (70-110)
[2020-07-28] MEDS: Acetaminophen 325 MG Tablet 650 MG PO (16:40)
[2020-07-28] MEDS: Insulin Lispro 100 UNIT/ML INSULN.PEN SC ×2 (16:41→22:05)
--- NOTE | 2020-07-28 19:41 | PCM.PN.HOSP ---
Patient Problems: Active and Suspected Problems (Last Reviewed 06/29/20 @ 09:18 by Leola Bhagat) COVID-19 (Acute) NSTEMI (non-ST elevated myocardial infarction) (Acute) Subjective: Patient seen and examined. He still had tingling in his left wrist, and also now had pain. Review of systems is otherwise negative. He has remained hemodynamically stable. Patient obtained a precert at his SNF in [place]. Patient however adamantly refused to go, and insisted he is going to his daughter's house. Daughter is unable to care for him, as she works multimedia production assistant. Vitals/I&O's: Vital Signs Temp Pulse Resp BP Pulse Ox 97.7 F L 62 20 H 131/59 H 94 07/28/20 16:49 07/28/20 18:30 07/28/20 16:49 07/28/20 16:49 07/28/20 16:49 Oxygen Flow Rate (L/min) 2 Oxygen Delivery Method Room Air Weight: 146 lb 4.8 oz Body Mass Index (BMI) 21.5 Finger Stick Blood Glucose 480 Intake and Output for Last 24 Hours 07/26/20 07/27/20 07/28/20 23:59 23:59 23:59 Intake Total 1619.15 / 1619.15 1060 / 1110 300 / 300 Output Total 1500 / 1500 1000 / 1000 Balance 119.15 / 119.15 1060 / 1110 -700 / -700 General: Alert, Oriented x3, Cooperative HEENT: Atraumatic, PERRLA, EOMI, Normocephalic Oral: Dry Mucosa Neck: Supple, No JVD, Negative Carotid Bruits Lungs: Clear to auscultation, Normal air movement Cardiovascular: Regular rate, Regular Rhythm, Normal S1, Normal S2, No murmurs Abdomen: Bowel Sounds Present, Soft, Non Tender, Non-Distended, No Hepato-splenomegaly Extremities: No edema, Capillary Refill Less than 3 Seconds Skin: No rashes, No breakdown Musculoskeletal: No Tenderness to Palpation of Joints or Extremities, - - Positive Phalen's and Tinel's sign of left wrist Neurological: Cranial nerves II-XII grossly intact, Neuro grossly intact Psych/Mental Status: Normal Affect, Appropriate, Alert and oriented to time, place, person, mood and affect Microbiology Past 72 Hours 07/24/20 16:15 Blood Culture (Wb) - Anticubital Right Blood Culture - Preliminary No growth in 48 hours. 07/24/20 14:20 Blood Culture (Wb) - Anticubital Right Blood Culture - Preliminary No growth in 48 hours. Laboratory Results 07/27/20 21:57: POC Glucose 218 H 07/28/20 06:15: WBC 6.2, RBC 3.22 L, Hgb 9.3 L, Hct 29.6 L, MCV 91.9, MCH 28.9, MCHC 31.4 L, RDW Std Deviation 48.8 H, RDW Coeff of Arturo 14.4, Plt Count 220, MPV 10.0 07/28/20 06:15: Sodium 137, Potassium 5.0, Chloride 99, Carbon Dioxide 26.0, Anion Gap 12, BUN 80 H, Creatinine 8.28 H*, Estim Creat Clear Calc 7.68, Est GFR (MDRD) Af Amer 8 L, Est GFR (MDRD) Non-Af 7 L, BUN/Creatinine Ratio 9.7 L, Glucose 113 H, Calcium 7.8 L, Total Bilirubin 0.20, AST 23, ALT 15 L, Alkaline Phosphatase 40 L, Total Protein 5.1 L, Albumin 2.5 L, Globulin 2.6, Albumin/Globulin Ratio 1.0 07/28/20 07:54: POC Glucose 111 H 07/28/20 11:33: POC Glucose 129 H 07/28/20 16:33: POC Glucose 203 H Current Medications Acetaminophen (Acetaminophen 325 Mg Tablet) 650 mg PO Q6H PRN PRN PRN Reason: Pain Score 1-10/Temp > 100.7 F Last Admin: 07/28/20 16:40 Dose: 650 mg Documented by: Al Hydroxide/Mg Hydroxide (Mag Hydrox/Al Hydrox/Simeth 30 Ml Udc) 30 ml PO Q6H PRN PRN PRN Reason: Gastric Burning Albuterol Sulfate (Albuterol Sulfate 8 Gm Inhaler (60 Puffs)) 1 puff INHALATION Q4H PRN PRN PRN Reason: Dyspnea, wheezing Amlodipine Besylate (Amlodipine 5 Mg Tablet) 5 mg PO DAILY [facility] Last Admin: 07/28/20 09:09 Dose: 5 mg Documented by: Aspirin (Aspirin 81 Mg Tab.Chew) 81 mg PO DAILY [facility] Last Admin: 07/28/20 09:11 Dose: 81 mg Documented by: Atorvastatin Calcium (Atorvastatin Calcium 80 Mg Tablet) 80 mg PO QHS [facility] Last Admin: 07/27/20 21:40 Dose: 80 mg Documented by: Calcium Acetate (Calcium Acetate 667 Mg Capsule) 667 mg PO TIDCM [facility] Last Admin: 07/28/20 16:40 Dose: 667 mg Documented by: Carvedilol (Carvedilol 12.5 Mg Tablet) 12.5 mg PO BID [facility] Last Admin: 07/28/20 09:07 Dose: 12.5 mg Documented by: Dexamethasone (Dexamethasone 4 Mg Tablet) 6 mg PO DAILY [facility] Stop: 08/03/20 10:01 Last Admin: 07/28/20 09:08 Dose: 6 mg Documented by: Finasteride (Finasteride 5 Mg Tablet) 5 mg PO DAILY [facility] Last Admin: 07/28/20 09:09 Dose: 5 mg Documented by: Guaifenesin (Guaifenesin 10 Ml Udc (200mg/10ml)) 20 ml PO Q4H PRN PRN PRN Reason: COUGH Hydralazine HCl (Hydralazine 25 Mg Tablet) 25 mg PO TID [facility] Last Admin: 07/28/20 15:17 Dose: Not Given Documented by: Hydralazine HCl (Hydralazine 20 Mg/Ml Vial) 10 mg IV Q4H PRN PRN PRN Reason: SBP > 160 Sodium Chloride () 250 mls @ 15 mls/hr IV .[id number] PRN PRN Reason: Saline Flush Sodium Chloride () 250 mls @ 15 mls/hr IV .[id number] PRN PRN Reason: Additional IVPB Infusion Remdesivir 100 mg/ Sodium (Chloride) 250 mls @ 125 mls/hr IV DAILY [facility]; Protocol Stop: 07/29/20 11:59 Last Infusion: 07/28/20 13:40 Dose: Infused Documented by: Insulin Glargine (Insulin Glargine 100 Units/Ml Pen) 10 units SC 0700 [facility] Last Admin: 07/28/20 09:11 Dose: 10 u Documented by: Insulin Human Lispro (Insulin Lispro 100 Unit/Ml Insuln.Pen) 0 unit SC ACHS [facility]; Protocol Last Admin: 07/28/20 16:41 Dose: 2 units Documented by: Levetiracetam (Levetiracetam 500 Mg Tablet) 500 mg PO BID [facility] Last Admin: 07/28/20 09:10 Dose: 500 mg Documented by: Magnesium Hydroxide (Magnesium Hydroxide 30 Ml Udc) 30 ml PO DAILY PRN PRN PRN Reason: Constipation Melatonin (Melatonin 3 Mg Tablet) 3 mg PO QHS PRN PRN PRN Reason: INSOMNIA Nitroglycerin (Nitroglycerin (Inpatient Use) 0.4 Mg Tab.Subl) 0.4 mg SUBLINGUAL Q5M PRN PRN Reason: CARDIAC/CHEST PAIN Ondansetron HCl (Ondansetron 4 Mg/2 Ml Vial) 4 mg IV Q8H PRN PRN PRN Reason: NAUSEA/VOMITING Oxycodone HCl (Oxycodone 5 Mg Tablet) 5 mg PO Q4H PRN PRN PRN Reason: Pain Score 4-5 Last Admin: 07/27/20 21:25 Dose: 5 mg Documented by: Pantoprazole Sodium (Pantoprazole Sodium 40 Mg Tablet) 40 mg PO DAILY [facility] Last Admin: 07/28/20 12:11 Dose: 40 mg Documented by: Prochlorperazine Edisylate (Prochlorperazine 10 Mg/2 Ml Vial) 5 mg IV Q4H PRN PRN PRN Reason: Breakthrough Nausea/Vomiting Psyllium Hydrophilic Mucilloid (Psyllium 1 Packet) 1 packet PO DAILY PRN PRN PRN Reason: Constipation Rivaroxaban (Rivaroxaban 10 Mg Tablet) 10 mg PO DAILY [facility] Last Admin: 07/28/20 09:08 Dose: 10 mg Documented by: Senna/Docusate Sodium (Senna/Docusate Sodium 1 Tablet) 2 tablet PO BID PRN PRN PRN Reason: Constipation Sodium Chloride (0.9% Saline Lock 10 Ml Syringe) 10 - 40 ml IV UD PRN PRN Reason: SALINE FLUSH Last Admin: 07/27/20 10:34 Dose: 10 ml Documented by: Tamsulosin HCl (Tamsulosin Hcl 0.4 Mg Capsule) 0.8 mg PO QHS [facility] Last Admin: 07/27/20 21:39 Dose: 0.8 mg Documented by: Throat Lozenges (Benzocaine/Menthol 1 Lozenge) 1 lozenge MUCOUS MEM Q2H PRN PRN PRN Reason: SORE THROAT STROKE Vital Signs/Narrative: Vital Signs Temp Pulse Resp BP Pulse Ox 07/28/20 18:30 62 07/28/20 16:49 97.7 F L 61 20 H 131/59 H 94 Medical Necessity - Tobacco Use Smoking Status: Former smoker Tobacco Use: Non-smoker Assessment/Plan All Active Problems (Last Reviewed 06/29/20 @ 09:18 by Leola Bhagat) Problem with dialysis access (Acute) COVID-19 (Acute) NSTEMI (non-ST elevated myocardial infarction) (Acute) Aspiration into airway (Ruled-out) Frequent falls (Acute) Generalized weakness (Acute) Debility (Acute) Frequent falls (Acute) #COVID 19 infection on p.o. dexamethasone 6 mg daily; to complete 10 day course. ID on board. On remdesivir Titrate oxygen to maintain saturation above 90%. Breathing treatment with bronchodilators. # Acute hypoxic respiratory insufficiency due to COVID as above. Now on room air. #Nonstemi Troponin peaked at 2.6 and trended down slightly to 2.02. On aspirin, as well as high intensity statin and carvedilol Cardiology on board- advocate medical management for now once COVID resolves, to have further workup such as 2D echo, to help determine need for cardiac cath, per cardiology. heparin drip discontinued, and he is now on xarelto 10mg daily. #carpal tunnel syndrome still complains of mild numbness in left hand. Tinel's sign still positive PT on board. may need a wrist splint # type 2 diabetes mellitus: on lantus 10IU daily. ISS. accuchecks ACHS # ESRD on HD: Dialysis Wednesdays and Fridays. Nephrology on board. # CAD s/p CABG: On aspirin, beta-ginny and statin. # history of subdural hematoma: on keppra # PAD s/p bilateral stents: on statin, and carvedilol #GERD: On PPI #Hypertension: On Norvasc, and Coreg with IV hydralazine as needed. DVT prophylaxis; on on xarelto for thromboprophylaxis in light of elevated D dimer from covid. Disposition:Patient refused to go to his SNF today after precert was obtained. He insists he is going to his daughter;s house. Daughter is unable to care for him. Patient admantly refuses to go to SNF. Daughter going to conference with her other siblings and patient to come up with plan of care. Inpatient E&M: 89191 Subs Hosp L2
--- NOTE | 2020-07-28 20:31 | NURSING ---
covid emergency charting in effect
[2020-07-28] MEDS: Tamsulosin HCl 0.4 MG Capsule 0.8 MG PO (22:03)
[2020-07-28] MEDS: Atorvastatin Calcium 80 MG Tablet PO (22:09)
[2020-07-28 22:50] LABS: Bedside Glucose 210 mg/dL (70-110)
[2020-07-29] VITALS (17 sets, daily range): BP systolic 111–130; BP diastolic 57–94; PULSE 45–60; RESP 18; TEMP 35.9–36.7; O2SAT 91–94
[2020-07-29] MEDS: hydrALAZINE 25 MG Tablet PO ×2 (05:10→20:49)
--- NOTE | 2020-07-29 07:44 | PCM.PN.HOSP ---
Patient Problems: Active and Suspected Problems (Last Updated 07/29/20 @ 12:08 by Maribel Griffiths) COVID-19 (Acute 07/24/20) Subjective: Patient seen and examined. He has no complaints this morning. Patient [facility] but refused to go and insisted on going to his daughter's house. Daughter is also however unable to take him and she cannot care for him. Patient is awaiting decision about disposition. He is very upset that his children dont want him to go home. He says he will He remains on room air and complains of pain in his left hand and left wrist. Dialysis now switched back to [facility], so patient will have to stay till Friday. Review of systems otherwise negative. Vitals/I&O's: Vital Signs Temp Pulse Resp BP Pulse Ox 97.8 F 60 18 124/59 H 94 07/29/20 03:10 07/29/20 05:10 07/29/20 03:10 07/29/20 05:10 07/29/20 03:10 Oxygen Flow Rate (L/min) 2 Oxygen Delivery Method Room Air Weight: 156 lb 15.506 oz Body Mass Index (BMI) 21.5 Finger Stick Blood Glucose 480 Intake and Output for Last 24 Hours 07/27/20 07/28/20 07/29/20 23:59 23:59 23:59 Intake Total 1060 / 1110 500 / 500 200 / 200 Output Total 1000 / 1000 0 / 0 Balance 1060 / 1110 -500 / -500 200 / 200 General: Alert, Oriented x3, Cooperative HEENT: Atraumatic, PERRLA, EOMI, Normocephalic Oral: Dry Mucosa Neck: Supple, No JVD, Negative Carotid Bruits Lungs: Clear to auscultation, Normal air movement Cardiovascular: Regular rate, Regular Rhythm, Normal S1, Normal S2, No murmurs Abdomen: Bowel Sounds Present, Soft, Non Tender, Non-Distended, No Hepato-splenomegaly Extremities: No edema, Capillary Refill Less than 3 Seconds Skin: No rashes, No breakdown Musculoskeletal: No Tenderness to Palpation of Joints or Extremities, - - Positive Phalen's and Tinel's sign of left wrist Neurological: Cranial nerves II-XII grossly intact, Neuro grossly intact Psych/Mental Status: Normal Affect, Appropriate, Alert and oriented to time, place, person, mood and affect Microbiology Past 72 Hours 07/24/20 16:15 Blood Culture (Wb) - Anticubital Right Blood Culture - Preliminary No growth in 48 hours. 07/24/20 14:20 Blood Culture (Wb) - Anticubital Right Blood Culture - Preliminary No growth in 48 hours. Laboratory Results 07/28/20 06:15: Sodium 137, Potassium 5.0, Chloride 99, Carbon Dioxide 26.0, Anion Gap 12, BUN 80 H, Creatinine 8.28 H*, Estim Creat Clear Calc 7.68, Est GFR (MDRD) Af Amer 8 L, Est GFR (MDRD) Non-Af 7 L, BUN/Creatinine Ratio 9.7 L, Glucose 113 H, Calcium 7.8 L, Total Bilirubin 0.20, AST 23, ALT 15 L, Alkaline Phosphatase 40 L, Total Protein 5.1 L, Albumin 2.5 L, Globulin 2.6, Albumin/Globulin Ratio 1.0 07/28/20 07:54: POC Glucose 111 H 07/28/20 11:33: POC Glucose 129 H 07/28/20 16:33: POC Glucose 203 H 07/28/20 21:53: POC Glucose 210 H Current Medications Acetaminophen (Acetaminophen 325 Mg Tablet) 650 mg PO Q6H PRN PRN PRN Reason: Pain Score 1-10/Temp > 100.7 F Last Admin: 07/28/20 16:40 Dose: 650 mg Documented by: Al Hydroxide/Mg Hydroxide (Mag Hydrox/Al Hydrox/Simeth 30 Ml Udc) 30 ml PO Q6H PRN PRN PRN Reason: Gastric Burning Albuterol Sulfate (Albuterol Sulfate 8 Gm Inhaler (60 Puffs)) 1 puff INHALATION Q4H PRN PRN PRN Reason: Dyspnea, wheezing Amlodipine Besylate (Amlodipine 5 Mg Tablet) 5 mg PO DAILY [facility] Last Admin: 07/28/20 09:09 Dose: 5 mg Documented by: Aspirin (Aspirin 81 Mg Tab.Chew) 81 mg PO DAILY [facility] Last Admin: 07/28/20 09:11 Dose: 81 mg Documented by: Atorvastatin Calcium (Atorvastatin Calcium 80 Mg Tablet) 80 mg PO QHS [facility] Last Admin: 07/28/20 22:09 Dose: 80 mg Documented by: Calcium Acetate (Calcium Acetate 667 Mg Capsule) 667 mg PO TIDCM [facility] Last Admin: 07/28/20 16:40 Dose: 667 mg Documented by: Carvedilol (Carvedilol 12.5 Mg Tablet) 12.5 mg PO BID [facility] Last Admin: 07/28/20 22:03 Dose: 12.5 mg Documented by: Dexamethasone (Dexamethasone 4 Mg Tablet) 6 mg PO DAILY [facility] Stop: 08/03/20 10:01 Last Admin: 07/28/20 09:08 Dose: 6 mg Documented by: Finasteride (Finasteride 5 Mg Tablet) 5 mg PO DAILY [facility] Last Admin: 07/28/20 09:09 Dose: 5 mg Documented by: Guaifenesin (Guaifenesin 10 Ml Udc (200mg/10ml)) 20 ml PO Q4H PRN PRN PRN Reason: COUGH Hydralazine HCl (Hydralazine 25 Mg Tablet) 25 mg PO TID [facility] Last Admin: 07/29/20 05:10 Dose: 25 mg Documented by: Hydralazine HCl (Hydralazine 20 Mg/Ml Vial) 10 mg IV Q4H PRN PRN PRN Reason: SBP > 160 Sodium Chloride () 250 mls @ 15 mls/hr IV .[id number] PRN PRN Reason: Saline Flush Sodium Chloride () 250 mls @ 15 mls/hr IV .[id number] PRN PRN Reason: Additional IVPB Infusion Remdesivir 100 mg/ Sodium (Chloride) 250 mls @ 125 mls/hr IV DAILY [facility]; Protocol Stop: 07/29/20 11:59 Last Infusion: 07/28/20 13:40 Dose: Infused Documented by: Insulin Glargine (Insulin Glargine 100 Units/Ml Pen) 10 units SC 0700 [facility] Last Admin: 07/28/20 09:11 Dose: 10 u Documented by: Insulin Human Lispro (Insulin Lispro 100 Unit/Ml Insuln.Pen) 0 unit SC ACHS [facility]; Protocol Last Admin: 07/28/20 22:05 Dose: 2 units Documented by: Levetiracetam (Levetiracetam 500 Mg Tablet) 500 mg PO BID [facility] Last Admin: 07/28/20 22:04 Dose: 500 mg Documented by: Magnesium Hydroxide (Magnesium Hydroxide 30 Ml Udc) 30 ml PO DAILY PRN PRN PRN Reason: Constipation Melatonin (Melatonin 3 Mg Tablet) 3 mg PO QHS PRN PRN PRN Reason: INSOMNIA Nitroglycerin (Nitroglycerin (Inpatient Use) 0.4 Mg Tab.Subl) 0.4 mg SUBLINGUAL Q5M PRN PRN Reason: CARDIAC/CHEST PAIN Ondansetron HCl (Ondansetron 4 Mg/2 Ml Vial) 4 mg IV Q8H PRN PRN PRN Reason: NAUSEA/VOMITING Oxycodone HCl (Oxycodone 5 Mg Tablet) 5 mg PO Q4H PRN PRN PRN Reason: Pain Score 4-5 Last Admin: 07/27/20 21:25 Dose: 5 mg Documented by: Pantoprazole Sodium (Pantoprazole Sodium 40 Mg Tablet) 40 mg PO DAILY [facility] Last Admin: 07/28/20 12:11 Dose: 40 mg Documented by: Prochlorperazine Edisylate (Prochlorperazine 10 Mg/2 Ml Vial) 5 mg IV Q4H PRN PRN PRN Reason: Breakthrough Nausea/Vomiting Psyllium Hydrophilic Mucilloid (Psyllium 1 Packet) 1 packet PO DAILY PRN PRN PRN Reason: Constipation Rivaroxaban (Rivaroxaban 10 Mg Tablet) 10 mg PO DAILY [facility] Last Admin: 07/28/20 09:08 Dose: 10 mg Documented by: Senna/Docusate Sodium (Senna/Docusate Sodium 1 Tablet) 2 tablet PO BID PRN PRN PRN Reason: Constipation Sodium Chloride (0.9% Saline Lock 10 Ml Syringe) 10 - 40 ml IV UD PRN PRN Reason: SALINE FLUSH Last Admin: 07/27/20 10:34 Dose: 10 ml Documented by: Tamsulosin HCl (Tamsulosin Hcl 0.4 Mg Capsule) 0.8 mg PO QHS [facility] Last Admin: 07/28/20 22:03 Dose: 0.8 mg Documented by: Throat Lozenges (Benzocaine/Menthol 1 Lozenge) 1 lozenge MUCOUS MEM Q2H PRN PRN PRN Reason: SORE THROAT STROKE Vital Signs/Narrative: Vital Signs Pulse BP BP 07/29/20 05:10 60 124/59 H 07/29/20 05:08 60 124/59 H 07/29/20 04:00 53 L Medical Necessity - Tobacco Use Smoking Status: Former smoker Tobacco Use: Non-smoker Assessment/Plan All Active Problems (Last Updated 07/29/20 @ 12:08 by Maribel Griffiths) COVID-19 (Acute 07/24/20) History of non-ST elevation myocardial infarction (NSTEMI) (Resolved 07/24/20) H/O coronary artery bypass surgery (Resolved 11/10/12) History of coronary artery stent placement (Resolved 03/28/09) Generalized weakness (Resolved) Problem with dialysis access (Resolved) Aspiration into airway (Ruled-out) #COVID 19 infection on p.o. dexamethasone 6 mg daily; to complete 10 day course. ID on board. On remdesivir Titrate oxygen to maintain saturation above 90%. Breathing treatment with bronchodilators. # Acute hypoxic respiratory insufficiency due to COVID resolved. Now on room air #Nonstemi Troponin peaked at 2.6 and trended down slightly to 2.02. On aspirin, as well as high intensity statin and carvedilol Cardiology on board- advocate medical management for now once COVID resolves, to have further workup such as 2D echo, to help determine need for cardiac cath, per cardiology. on xarelto 10mg daily. #carpal tunnel syndrome still complains of mild numbness in left hand. Tinel's sign still positive PT on board. may need a wrist splint will get xray of the left wrist today as pain is persistent # type 2 diabetes mellitus: on lantus 10IU daily. ISS. accuchecks ACHS # ESRD on HD: Dialysis Wednesdays and Fridays. Nephrology on board. # CAD s/p CABG: On aspirin, beta-ginny and statin. # history of subdural hematoma: on keppra # PAD s/p bilateral stents: on statin, and carvedilol #GERD: On PPI #Hypertension: On Norvasc, and Coreg with IV hydralazine as needed. DVT prophylaxis; on xarelto for thromboprophylaxis in light of elevated D dimer from covid. Disposition:Patient adamantly refuses to go to his SNF today after precert was obtained. He insists he is going to his daughter;s house. I did call his daughter (Dinorah Mosquera) today, and she also says she is not able to take care of him, and cannot bring him home, because she also works fulltime; she says she is spoken to all his siblings in the and agreement that their father needs to go to the penitentiary. She does not anticipate this being a short-term placement because she does not think he can do well enough to take care of himself at home and so thinks he will be there for the long-term. Disposition at this time is still undetermined because patient refuses to go to penitentiary per children, they cannot care for him at home. Inpatient E&M: [id number] Subs Hosp L2
[2020-07-29 08:19] LABS: Hematocrit 27.5 % (40-54); Hemoglobin 8.8 g/dL (13.0-16.5); Mean Corpuscular Hgb 29.2 pg (27.0-32.0); Mean Corpuscular Volume 91.4 fL (80-94); Platelet Count 196 K/mm3 (150-450); RBC Distribution Width CV 14.6 % (11.6-14.6); RBC Distribution Width SD 48.7 fl (35.1-43.9); Red Blood Count 3.01 M/mm3 (4.6-6.2); White Blood Count 6.3 K/mm3 (4.4-11.0)
[2020-07-29] MEDS: dexAMETHasone 4 MG Tablet 6 MG PO (08:23)
[2020-07-29] MEDS: Finasteride 5 MG Tablet PO (08:24)
[2020-07-29] MEDS: Pantoprazole Sodium 40 MG Tablet PO (08:25)
[2020-07-29] MEDS: levETIRAcetam 500 MG Tablet PO ×2 (08:25→20:49)
[2020-07-29] MEDS: Rivaroxaban 10 MG Tablet PO (08:25)
[2020-07-29] MEDS: Aspirin 81 MG TAB.CHEW PO (08:25)
[2020-07-29] MEDS: Calcium Acetate 667 MG Capsule PO ×2 (08:25→18:04)
[2020-07-29 08:51] LABS: Bedside Glucose 123 mg/dL (70-110)
[2020-07-29 08:52] LABS: ALB/GLOB Ratio 0.8 RATIO (0.9-2.4); AST(SGOT) 23 U/L (15-37); Alanine Aminotransfer ALT/SGPT 15 U/L (16-61); Albumin, Serum 2.3 g/dL (3.2-5.0); Alkaline Phosphatase 46 U/L (45-117); Anion Gap 9 (5-15); BUN 55 mg/dL (7-18); BUN/Creat Ratio 9.3 RATIO (10-20); Calcium,Total 7.2 mg/dL (8.5-10.1); Chloride 100 mmol/L (98-107); EST Glomerular Filtration Rate 10 mL/min (>60); Est Glom Filt Rate - Afr Amer 12 mL/min (>60); Estimated Creatinine Clearance 11.11 ml/min; Globulin 2.8 g/dL (2.2-4.2); Glucose 121 mg/dL (74-106); Potassium 4.2 mmol/L (3.5-5.1); Protein, Total 5.1 g/dL (6.4-8.2); Sodium Level 136 mmol/L (136-145)
[2020-07-29] MEDS: 0.9% Saline Lock 10 ML Syringe IV (11:29)
--- NOTE | 2020-07-29 12:37 | RAD_ITS ---
STUDY: X-RAY - LEFT WRIST REASON FOR EXAM: Male, 69 years old. Pain TECHNIQUE: 3 view(s) of the wrist were obtained. COMPARISON: None. FINDINGS: There is a well-corticated osseous density adjacent to the ulnar styloid which is consistent with prior trauma. There is no evidence of fracture or dislocation. There are mild degenerative change. There are no radiodense foreign bodies. RAD/Wrist min 3 Views IMPRESSION: Well-corticated osseous density adjacent to the ulnar styloid, consistent with prior trauma. No acute fracture or dislocation. Mild degenerative change. Electronically Signed: Chip Ortiz, at 14:00 EST Tel , Service support ,
[2020-07-29 12:56] LABS: Bedside Glucose 101 mg/dL (70-110)
[2020-07-29 16:21] LABS: Bedside Glucose 153 mg/dL (70-110)
[2020-07-29] MEDS: Insulin Lispro 100 UNIT/ML INSULN.PEN SC (20:47)
[2020-07-29] MEDS: Tamsulosin HCl 0.4 MG Capsule 0.8 MG PO (20:48)
[2020-07-29] MEDS: Atorvastatin Calcium 80 MG Tablet PO (20:48)
[2020-07-29] MEDS: Carvedilol 12.5 MG Tablet PO (20:49)
[2020-07-29 22:20] LABS: Bedside Glucose 193 mg/dL (70-110)
[2020-07-30] VITALS (13 sets, daily range): BP systolic 106–160; BP diastolic 49–74; PULSE 50–68; RESP 16–18; TEMP 36.3–36.9; O2SAT 93–96
[2020-07-30] MEDS: hydrALAZINE 25 MG Tablet PO ×2 (05:16→20:39)
[2020-07-30 06:55] LABS: Hematocrit 27.5 % (40-54); Hemoglobin 8.8 g/dL (13.0-16.5); Mean Corpuscular Hgb 29.1 pg (27.0-32.0); Mean Corpuscular Volume 91.1 fL (80-94); Mean Platelet Vol. 9.8 fl (6.2-12.0); Platelet Count 194 K/mm3 (150-450); RBC Distribution Width CV 14.5 % (11.6-14.6); RBC Distribution Width SD 47.9 fl (35.1-43.9); Red Blood Count 3.02 M/mm3 (4.6-6.2); White Blood Count 8.1 K/mm3 (4.4-11.0)
[2020-07-30 07:28] LABS: ALB/GLOB Ratio 0.9 RATIO (0.9-2.4); AST(SGOT) 21 U/L (15-37); Alanine Aminotransfer ALT/SGPT 14 U/L (16-61); Albumin, Serum 2.3 g/dL (3.2-5.0); Alkaline Phosphatase 42 U/L (45-117); Anion Gap 11 (5-15); BUN 83 mg/dL (7-18); BUN/Creat Ratio 10.8 RATIO (10-20); Calcium,Total 7.4 mg/dL (8.5-10.1); Chloride 100 mmol/L (98-107); Creatinine, Serum 7.68 mg/dL (0.70-1.30); EST Glomerular Filtration Rate 7 mL/min (>60); Est Glom Filt Rate - Afr Amer 9 mL/min (>60); Estimated Creatinine Clearance 8.54 ml/min; Globulin 2.6 g/dL (2.2-4.2); Glucose 92 mg/dL (74-106); Potassium 4.5 mmol/L (3.5-5.1); Protein, Total 4.9 g/dL (6.4-8.2); Sodium Level 136 mmol/L (136-145)
--- NOTE | 2020-07-30 07:33 | PN_ITS ---
Patient Problems: Active and Suspected Problems (Last Updated 07/29/20 @ 12:08 by Maribel Griffiths) COVID-19 (Acute 07/24/20) Subjective: Patient seen and examined. He still complains of left wrist pain. Review of systems is otherwise negative. He remains on room air. He has been bradycardia, though asymptomatic. Vitals/I&O's: Vital Signs Temp Pulse Resp BP Pulse Ox 97.6 F L 53 L 16 160/65 H 96 07/30/20 02:34 07/30/20 07:02 07/30/20 02:34 07/30/20 02:34 07/30/20 02:34 Oxygen Flow Rate (L/min) 2 Oxygen Delivery Method Room Air Weight: 155 lb 6.814 oz Body Mass Index (BMI) 21.5 Finger Stick Blood Glucose 480 Intake and Output for Last 24 Hours 07/28/20 07/29/20 07/30/20 23:59 23:59 23:59 Intake Total 500 / 500 731 / 731 Output Total 1000 / 1000 1000 / 1000 1000 / 1000 Balance -500 / -500 -269 / -269 -1000 / -1000 General: Alert, Oriented x3, Cooperative HEENT: Atraumatic, PERRLA, EOMI, Normocephalic Oral: Dry Mucosa Neck: Supple, No JVD, Negative Carotid Bruits Lungs: Clear to auscultation, Normal air movement Cardiovascular: Regular rate, Regular Rhythm, Normal S1, Normal S2, No murmurs Abdomen: Bowel Sounds Present, Soft, Non Tender, Non-Distended, No Hepato- splenomegaly Extremities: No edema, Capillary Refill Less than 3 Seconds Skin: No rashes, No breakdown Musculoskeletal: No Tenderness to Palpation of Joints or Extremities, - - Positive Phalen's and Tinel's sign of left wrist Neurological: Cranial nerves II-XII grossly intact, Neuro grossly intact Psych/Mental Status: Normal Affect, Appropriate, Alert and oriented to time, place, person, mood and affect Microbiology Past 72 Hours 07/24/20 16:15 Blood Culture (Wb) - Anticubital Right Blood Culture - Final No growth in 5 days. 07/24/20 14:20 Blood Culture (Wb) - Anticubital Right Blood Culture - Final No growth in 5 days. Laboratory Results 07/29/20 07:41: WBC 6.3, RBC 3.01 L, Hgb 8.8 L, Hct 27.5 L, MCV 91.4, MCH 29.2, MCHC 32.0, RDW Std Deviation 48.7 H, RDW Coeff of Arturo 14.6, Plt Count 196, MPV 10.0 07/29/20 07:41: Sodium 136, Potassium 4.2, Chloride 100, Carbon Dioxide 27.0, An ion Gap 9, BUN 55 H, Creatinine 5.90 H, Estim Creat Clear Calc 11.11, Est GFR (MDRD) Af Amer 12 L, Est GFR (MDRD) Non-Af 10 L, BUN/Creatinine Ratio 9.3 L, Glucose 121 H, Calcium 7.2 L, Total Bilirubin 0.40, AST 23, ALT 15 L, Alkaline Phosphatase 46, Total Protein 5.1 L, Albumin 2.3 L, Globulin 2.8, Albumin/Globulin Ratio 0.8 L 07/29/20 08:04: POC Glucose 123 H 07/29/20 11:33: POC Glucose 101 07/29/20 16:12: POC Glucose 153 H 07/29/20 20:45: POC Glucose 193 H 07/30/20 06:38: WBC 8.1, RBC 3.02 L, Hgb 8.8 L, Hct 27.5 L, MCV 91.1, MCH 29.1, MCHC 32.0, RDW Std Deviation 47.9 H, RDW Coeff of Arturo 14.5, Plt Count 194, MPV 9.8 07/30/20 06:38: Sodium 136, Potassium 4.5, Chloride 100, Carbon Dioxide 25.0, Anion Gap 11, BUN 83 H, Creatinine 7.68 H*, Estim Creat Clear Calc 8.54, Est GFR (MDRD) Af Amer 9 L, Est GFR (MDRD) Non-Af 7 L, BUN/Creatinine Ratio 10.8, Glucose 92, Calcium 7.4 L, Total Bilirubin 0.30, AST 21, ALT 14 L, Alkaline Phosphatase 42 L, Total Protein 4.9 L, Albumin 2.3 L, Globulin 2.6, Albumin/Globulin Ratio 0.9 Current Medications Acetaminophen (Acetaminophen 325 Mg Tablet) 650 mg PO Q6H PRN PRN PRN Reason: Pain Score 1-10/Temp > 100.7 F Last Admin: 07/28/20 16:40 Dose: 650 mg Documented by: Al Hydroxide/Mg Hydroxide (Mag Hydrox/Al Hydrox/Simeth 30 Ml Udc) 30 ml PO Q6H PRN PRN PRN Reason: Gastric Burning Albuterol Sulfate (Albuterol Sulfate 8 Gm Inhaler (60 Puffs)) 1 puff INHALATION Q4H PRN PRN PRN Reason: Dyspnea, wheezing Amlodipine Besylate (Amlodipine 5 Mg Tablet) 5 mg PO DAILY [facility] Last Admin: 07/29/20 11:30 Dose: Not Given Documented by: Aspirin (Aspirin 81 Mg Tab.Chew) 81 mg PO DAILY [facility] Last Admin: 07/29/20 08:25 Dose: 81 mg Documented by: Atorvastatin Calcium (Atorvastatin Calcium 80 Mg Tablet) 80 mg PO QHS [facility] Last Admin: 07/29/20 20:48 Dose: 80 mg Documented by: Calcium Acetate (Calcium Acetate 667 Mg Capsule) 667 mg PO TIDCM [facility] Last Admin: 07/29/20 18:04 Dose: 667 mg Documented by: Carvedilol (Carvedilol 12.5 Mg Tablet) 12.5 mg PO BID [facility] Last Admin: 07/29/20 20:49 Dose: 12.5 mg Documented by: Dexamethasone (Dexamethasone 4 Mg Tablet) 6 mg PO DAILY [facility] Stop: 08/03/20 10:01 Last Admin: 07/29/20 08:23 Dose: 6 mg Documented by: Finasteride (Finasteride 5 Mg Tablet) 5 mg PO DAILY [facility] Last Admin: 07/29/20 08:24 Dose: 5 mg Documented by: Guaifenesin (Guaifenesin 10 Ml Udc (200mg/10ml)) 20 ml PO Q4H PRN PRN PRN Reason: COUGH Hydralazine HCl (Hydralazine 25 Mg Tablet) 25 mg PO TID [facility] Last Admin: 07/30/20 05:16 Dose: 25 mg Documented by: Hydralazine HCl (Hydralazine 20 Mg/Ml Vial) 10 mg IV Q4H PRN PRN PRN Reason: SBP > 160 Sodium Chloride () 250 mls @ 15 mls/hr IV .[id number] PRN PRN Reason: Saline Flush Last Infusion: 07/29/20 16:14 Dose: Infused Documented by: Sodium Chloride () 250 mls @ 15 mls/hr IV .[id number] PRN PRN Reason: Additional IVPB Infusion Insulin Glargine (Insulin Glargine 100 Units/Ml Pen) 10 units SC 0700 [facility] Last Admin: 07/29/20 08:27 Dose: 10 u Documented by: Insulin Human Lispro (Insulin Lispro 100 Unit/Ml Insuln.Pen) 0 unit SC ACHS [facility]; Protocol Last Admin: 07/29/20 20:47 Dose: 2 units Documented by: Levetiracetam (Levetiracetam 500 Mg Tablet) 500 mg PO BID [facility] Last Admin: 07/29/20 20:49 Dose: 500 mg Documented by: Magnesium Hydroxide (Magnesium Hydroxide 30 Ml Udc) 30 ml PO DAILY PRN PRN PRN Reason: Constipation Melatonin (Melatonin 3 Mg Tablet) 3 mg PO QHS PRN PRN PRN Reason: INSOMNIA Nitroglycerin (Nitroglycerin (Inpatient Use) 0.4 Mg Tab.Subl) 0.4 mg SUBLINGUAL Q5M PRN PRN Reason: CARDIAC/CHEST PAIN Ondansetron HCl (Ondansetron 4 Mg/2 Ml Vial) 4 mg IV Q8H PRN PRN PRN Reason: NAUSEA/VOMITING Oxycodone HCl (Oxycodone 5 Mg Tablet) 5 mg PO Q4H PRN PRN PRN Reason: Pain Score 4-5 Last Admin: 07/27/20 21:25 Dose: 5 mg Documented by: Pantoprazole Sodium (Pantoprazole Sodium 40 Mg Tablet) 40 mg PO DAILY [facility] Last Admin: 07/29/20 08:25 Dose: 40 mg Documented by: Prochlorperazine Edisylate (Prochlorperazine 10 Mg/2 Ml Vial) 5 mg IV Q4H PRN PRN PRN Reason: Breakthrough Nausea/Vomiting Psyllium Hydrophilic Mucilloid (Psyllium 1 Packet) 1 packet PO DAILY PRN PRN PRN Reason: Constipation Rivaroxaban (Rivaroxaban 10 Mg Tablet) 10 mg PO DAILY [facility] Last Admin: 07/29/20 08:25 Dose: 10 mg Documented by: Senna/Docusate Sodium (Senna/Docusate Sodium 1 Tablet) 2 tablet PO BID PRN PRN PRN Reason: Constipation Sodium Chloride (0.9% Saline Lock 10 Ml Syringe) 10 - 40 ml IV UD PRN PRN Reason: SALINE FLUSH Last Admin: 07/29/20 11:29 Dose: 10 ml Documented by: Tamsulosin HCl (Tamsulosin Hcl 0.4 Mg Capsule) 0.8 mg PO QHS [facility] Last Admin: 07/29/20 20:48 Dose: 0.8 mg Documented by: Throat Lozenges (Benzocaine/Menthol 1 Lozenge) 1 lozenge MUCOUS MEM Q2H PRN PRN PRN Reason: SORE THROAT STROKE Vital Signs/Narrative: Vital Signs Pulse 07/30/20 07:02 53 L 07/30/20 05:16 54 L 07/30/20 03:34 50 L Medical Necessity - Tobacco Use Smoking Status: Former smoker Tobacco Use: Non-smoker Assessment/Plan All Active Problems (Last Updated 07/29/20 @ 12:08 by Maribel Griffiths) COVID-19 (Acute 07/24/20) History of non-ST elevation myocardial infarction (NSTEMI) (Resolved 07/24/20) H/O coronary artery bypass surgery (Resolved 11/10/12) History of coronary artery stent placement (Resolved 03/28/09) Generalized weakness (Resolved) Problem with dialysis access (Resolved) Aspiration into airway (Ruled-out) #COVID 19 infection * on p.o. dexamethasone 6 mg daily; to complete 10 day course. * ID on board. On remdesivir * Titrate oxygen to maintain saturation above 90%. * Breathing treatment with bronchodilators. * # Acute hypoxic respiratory insufficiency due to COVID * resolved. Now on room air * #Nonstemi * Troponin peaked at 2.6 and trended down slightly to 2.02. On aspirin, as well as high intensity statin and carvedilol * Cardiology on board- advocate medical management for now * once COVID resolves, to have further workup such as 2D echo, to help determine need for cardiac cath, per cardiology. * on xarelto 10mg daily. #carpal tunnel syndrome * still complains of mild numbness in left hand. Tinel's sign still positive * PT on board. may need a wrist splint * xray of the left wrist shwoed a well corticated osseous density adjacent to the ulnar styloid, consisted with prior trauma, with no acute fracture or dislocation and mild degenerative changes * continue tylenol. For wrist splint. * # type 2 diabetes mellitus: on lantus 10IU daily. ISS. accucheckcitlali ACHS # ESRD on HD: Dialysis Wednesdays and Fridays. Nephrology on board. # CAD s/p CABG: On aspirin, beta-ginny and statin. # history of subdural hematoma: on keppra # PAD s/p bilateral stents: on statin, and carvedilol #GERD: On PPI #Hypertension: On Norvasc, and Coreg with IV hydralazine as needed. DVT prophylaxis; on xarelto for thromboprophylaxis in light of elevated D dimer from covid. Disposition: to be determined as patient refuses to go to SNF, and family is also adamant that they cannot care for him at home Inpatient E&M: [id number] Subs Hosp L2
[2020-07-30] MEDS: Pantoprazole Sodium 40 MG Tablet PO (09:12)
[2020-07-30] MEDS: Finasteride 5 MG Tablet PO (09:12)
[2020-07-30] MEDS: Rivaroxaban 10 MG Tablet PO (09:13)
[2020-07-30] MEDS: levETIRAcetam 500 MG Tablet PO ×2 (09:13→20:40)
[2020-07-30] MEDS: Carvedilol 12.5 MG Tablet PO ×2 (09:13→20:39)
[2020-07-30] MEDS: Calcium Acetate 667 MG Capsule PO ×2 (09:13→17:18)
[2020-07-30] MEDS: dexAMETHasone 4 MG Tablet 6 MG PO (09:13)
[2020-07-30] MEDS: amLODIPine 5 MG Tablet PO (09:13)
[2020-07-30] MEDS: Aspirin 81 MG TAB.CHEW PO (09:13)
[2020-07-30 09:51] LABS: Bedside Glucose 84 mg/dL (70-110)
[2020-07-30 12:36] LABS: Bedside Glucose 111 mg/dL (70-110)
[2020-07-30] MEDS: Epoetin Alfa epbx 10,000 UNITS/ML 4000 UNIT IV (13:19)
[2020-07-30] MEDS: Heparin 10,000 UNITS/10 ML Vial IV (14:23)
--- NOTE | 2020-07-30 15:01 | DIALYSIS ---
Hemodialysis completed. -1200ml off. CVC closed with heparin to each lumen fill volume. Verbal Report to Alia TRUJILLO. See HD flowsheet for further details.
--- NOTE | 2020-07-30 15:33 | PN.RENAL_ITS ---
Patient Problems: Active and Suspected Problems (Last Updated 07/29/20 @ 12:08 by Maribel Griffiths) COVID-19 (Acute 07/24/20) Subjective: no Shortness of breath still on room air Objective: Physical examination deferred to preserve PPE and prevent further transmission of COVID-19 - Physical Exam Vitals/I&O's: Vital Signs Temp Pulse Resp BP Pulse Ox 97.3 F L 60 18 106/53 L 94 07/30/20 15:20 07/30/20 15:20 07/30/20 15:20 07/30/20 15:20 07/30/20 15:20 Oxygen Flow Rate (L/min) 2 Oxygen Delivery Method Room Air Weight: 70.5 kg Body Mass Index (BMI) 21.5 Finger Stick Blood Glucose 480 Intake and Output for Last 24 Hours 07/28/20 07/29/20 07/30/20 23:59 23:59 23:59 Intake Total 500 / 500 731 / 731 240 / 240 Output Total 1000 / 1000 1000 / 1000 2200 / 2200 Balance -500 / -500 -269 / -269 -1960 / -1960 Microbiology Past 72 Hours 07/24/20 16:15 Blood Culture (Wb) - Anticubital Right Blood Culture - Final No growth in 5 days. 07/24/20 14:20 Blood Culture (Wb) - Anticubital Right Blood Culture - Final No growth in 5 days. Laboratory Results 07/29/20 16:12: POC Glucose 153 H 07/29/20 20:45: POC Glucose 193 H 07/30/20 06:38: WBC 8.1, RBC 3.02 L, Hgb 8.8 L, Hct 27.5 L, MCV 91.1, MCH 29.1, MCHC 32.0, RDW Std Deviation 47.9 H, RDW Coeff of Arturo 14.5, Plt Count 194, MPV 9.8 07/30/20 06:38: Sodium 136, Potassium 4.5, Chloride 100, Carbon Dioxide 25.0, Anion Gap 11, BUN 83 H, Creatinine 7.68 H*, Estim Creat Clear Calc 8.54, Est GFR (MDRD) Af Amer 9 L, Est GFR (MDRD) Non-Af 7 L, BUN/Creatinine Ratio 10.8, Glucose 92, Calcium 7.4 L, Total Bilirubin 0.30, AST 21, ALT 14 L, Alkaline Phosphatase 42 L, Total Protein 4.9 L, Albumin 2.3 L, Globulin 2.6, Albumin/Globulin Ratio 0.9 07/30/20 09:11: POC Glucose 84 07/30/20 12:28: POC Glucose 111 H Current Medications Acetaminophen (Acetaminophen 325 Mg Tablet) 650 mg PO Q6H PRN PRN PRN Reason: Pain Score 1-10/Temp > 100.7 F Last Admin: 07/28/20 16:40 Dose: 650 mg Documented by: Al Hydroxide/Mg Hydroxide (Mag Hydrox/Al Hydrox/Simeth 30 Ml Udc) 30 ml PO Q6H PRN PRN PRN Reason: Gastric Burning Albuterol Sulfate (Albuterol Sulfate 8 Gm Inhaler (60 Puffs)) 1 puff INHALATION Q4H PRN PRN PRN Reason: Dyspnea, wheezing Amlodipine Besylate (Amlodipine 5 Mg Tablet) 5 mg PO DAILY [facility] Last Admin: 07/30/20 09:13 Dose: 5 mg Documented by: Aspirin (Aspirin 81 Mg Tab.Chew) 81 mg PO DAILY [facility] Last Admin: 07/30/20 09:13 Dose: 81 mg Documented by: Atorvastatin Calcium (Atorvastatin Calcium 80 Mg Tablet) 80 mg PO QHS [facility] Last Admin: 07/29/20 20:48 Dose: 80 mg Documented by: Calcium Acetate (Calcium Acetate 667 Mg Capsule) 667 mg PO TIDCM [facility] Last Admin: 07/30/20 09:13 Dose: 667 mg Documented by: Carvedilol (Carvedilol 12.5 Mg Tablet) 12.5 mg PO BID [facility] Last Admin: 07/30/20 09:13 Dose: 12.5 mg Documented by: Dexamethasone (Dexamethasone 4 Mg Tablet) 6 mg PO DAILY [facility] Stop: 08/03/20 10:01 Last Admin: 07/30/20 09:13 Dose: 6 mg Documented by: Finasteride (Finasteride 5 Mg Tablet) 5 mg PO DAILY [facility] Last Admin: 07/30/20 09:12 Dose: 5 mg Documented by: Guaifenesin (Guaifenesin 10 Ml Udc (200mg/10ml)) 20 ml PO Q4H PRN PRN PRN Reason: COUGH Hydralazine HCl (Hydralazine 25 Mg Tablet) 25 mg PO TID [facility] Last Admin: 07/30/20 05:16 Dose: 25 mg Documented by: Hydralazine HCl (Hydralazine 20 Mg/Ml Vial) 10 mg IV Q4H PRN PRN PRN Reason: SBP > 160 Sodium Chloride () 250 mls @ 15 mls/hr IV .[id number] PRN PRN Reason: Saline Flush Last Infusion: 07/29/20 16:14 Dose: Infused Documented by: Sodium Chloride () 250 mls @ 15 mls/hr IV .[id number] PRN PRN Reason: Additional IVPB Infusion Insulin Glargine (Insulin Glargine 100 Units/Ml Pen) 10 units SC 0700 [facility] Last Admin: 07/30/20 09:12 Dose: Not Given Documented by: Insulin Human Lispro (Insulin Lispro 100 Unit/Ml Insuln.Pen) 0 unit SC ACHS [facility]; Protocol Last Admin: 07/30/20 13:48 Dose: Not Given Documented by: Levetiracetam (Levetiracetam 500 Mg Tablet) 500 mg PO BID [facility] Last Admin: 07/30/20 09:13 Dose: 500 mg Documented by: Magnesium Hydroxide (Magnesium Hydroxide 30 Ml Udc) 30 ml PO DAILY PRN PRN PRN Reason: Constipation Melatonin (Melatonin 3 Mg Tablet) 3 mg PO QHS PRN PRN PRN Reason: INSOMNIA Nitroglycerin (Nitroglycerin (Inpatient Use) 0.4 Mg Tab.Subl) 0.4 mg SUBLINGUAL Q5M PRN PRN Reason: CARDIAC/CHEST PAIN Ondansetron HCl (Ondansetron 4 Mg/2 Ml Vial) 4 mg IV Q8H PRN PRN PRN Reason: NAUSEA/VOMITING Oxycodone HCl (Oxycodone 5 Mg Tablet) 5 mg PO Q4H PRN PRN PRN Reason: Pain Score 4-5 Last Admin: 07/27/20 21:25 Dose: 5 mg Documented by: Pantoprazole Sodium (Pantoprazole Sodium 40 Mg Tablet) 40 mg PO DAILY [facility] Last Admin: 07/30/20 09:12 Dose: 40 mg Documented by: Prochlorperazine Edisylate (Prochlorperazine 10 Mg/2 Ml Vial) 5 mg IV Q4H PRN PRN PRN Reason: Breakthrough Nausea/Vomiting Psyllium Hydrophilic Mucilloid (Psyllium 1 Packet) 1 packet PO DAILY PRN PRN PRN Reason: Constipation Rivaroxaban (Rivaroxaban 10 Mg Tablet) 10 mg PO DAILY [facility] Last Admin: 07/30/20 09:13 Dose: 10 mg Documented by: Senna/Docusate Sodium (Senna/Docusate Sodium 1 Tablet) 2 tablet PO BID PRN PRN PRN Reason: Constipation Sodium Chloride (0.9% Saline Lock 10 Ml Syringe) 10 - 40 ml IV UD PRN PRN Reason: SALINE FLUSH Last Admin: 07/29/20 11:29 Dose: 10 ml Documented by: Tamsulosin HCl (Tamsulosin Hcl 0.4 Mg Capsule) 0.8 mg PO QHS [facility] Last Admin: 07/29/20 20:48 Dose: 0.8 mg Documented by: Throat Lozenges (Benzocaine/Menthol 1 Lozenge) 1 lozenge MUCOUS MEM Q2H PRN PRN PRN Reason: SORE THROAT Medical Necessity - Tobacco Use Smoking Status: Former smoker Tobacco Use: Non-smoker Assessment/Plan All Active Problems (Last Updated 07/29/20 @ 12:08 by Maribel Griffiths) COVID-19 (Acute 07/24/20) History of non-ST elevation myocardial infarction (NSTEMI) (Resolved 07/24/20) H/O coronary artery bypass surgery (Resolved 11/10/12) History of coronary artery stent placement (Resolved 03/28/09) Generalized weakness (Resolved) Problem with dialysis access (Resolved) Aspiration into airway (Ruled-out) ESRD continue Friday dialysis for dialysis today .Follow up blood cx since has has TDC.so far bcx negative 5 days. [facility]. Anemia monitor RORY with HD HTN continue meds controlled CKD MBD binders monitor ca phos COVID-19 per primary
[2020-07-30] MEDS: Insulin Lispro 100 UNIT/ML INSULN.PEN SC ×2 (17:18→20:38)
[2020-07-30 17:21] LABS: Bedside Glucose 206 mg/dL (70-110)
[2020-07-30] MEDS: Tamsulosin HCl 0.4 MG Capsule 0.8 MG PO (20:39)
[2020-07-30] MEDS: Atorvastatin Calcium 80 MG Tablet PO (20:39)
[2020-07-31] VITALS (14 sets, daily range): BP systolic 105–139; BP diastolic 53–63; PULSE 49–62; RESP 18–20; TEMP 36.4–36.8; O2SAT 92–98
[2020-07-31] MEDS: hydrALAZINE 25 MG Tablet PO ×2 (05:24→21:04)
[2020-07-31 05:26] LABS: Bedside Glucose 195 mg/dL (70-110)
[2020-07-31] MEDS: Aspirin 81 MG TAB.CHEW PO (08:55)
[2020-07-31] MEDS: Calcium Acetate 667 MG Capsule PO ×3 (08:55→17:16)
[2020-07-31] MEDS: dexAMETHasone 4 MG Tablet 6 MG PO (08:56)
[2020-07-31] MEDS: Carvedilol 12.5 MG Tablet PO ×2 (08:56→21:04)
[2020-07-31] MEDS: levETIRAcetam 500 MG Tablet PO ×2 (08:57→21:05)
[2020-07-31] MEDS: Finasteride 5 MG Tablet PO (08:57)
[2020-07-31] MEDS: amLODIPine 5 MG Tablet PO (08:57)
[2020-07-31] MEDS: Pantoprazole Sodium 40 MG Tablet PO (08:58)
[2020-07-31] MEDS: Rivaroxaban 10 MG Tablet PO (08:58)
[2020-07-31 10:01] LABS: Bedside Glucose 102 mg/dL (70-110)
--- NOTE | 2020-07-31 10:54 | CASEMGMT ---
Addendum entered by Christin Chun 07/31/20 11:25: Social Work Return call from [facility] pt. Clinical update faxed at this time and will await return call with approval for discharge. GOLDIE Sandhu Original Note: Social Work Multiple phone calls to pt room and pt did not answer. SW met with pt in room to discuss discharge plan. SW explained to pt that a bed is reserved at [facility] and they can accept pt today. Pt states that he is agreeable to discharge to nursing facilty. Pt with no questions regarding transfer at this time. SW showed pt how to use room phone and explained SW will call when all arrangements and transportation are lined up and let pt know what time he will be leaving. Phone call with Altaf at the [facility]. He will check on precert and let SW know if he can discharge today. Per nephrology, pt will need 2 hours of dialysis today prior to discharge. GOLDIE Sandhu
--- NOTE | 2020-07-31 11:27 | PN.RENAL_ITS ---
Patient Problems: Active and Suspected Problems (Last Updated 07/29/20 @ 12:08 by Maribel Griffiths) COVID-19 (Acute 07/24/20) Subjective: no sob no c/o Objective: Physical examination deferred to prevent transmission of COVID-19 and preserve PPE - Physical Exam Vitals/I&O's: Vital Signs Temp Pulse Resp BP Pulse Ox 97.6 F L 56 L 18 125/60 H 98 07/31/20 08:45 07/31/20 08:45 07/31/20 08:45 07/31/20 08:45 07/31/20 08:45 Oxygen Flow Rate (L/min) 2 Oxygen Delivery Method Room Air Weight: 71.2 kg Body Mass Index (BMI) 21.5 Finger Stick Blood Glucose 480 Intake and Output for Last 24 Hours 07/29/20 07/30/20 07/31/20 23:59 23:59 23:59 Intake Total 731 / 731 460 / 460 240 / 240 Output Total 1000 / 1000 2200 / 2200 Balance -269 / -269 -1740 / -1740 240 / 240 Microbiology Past 72 Hours 07/24/20 16:15 Blood Culture (Wb) - Anticubital Right Blood Culture - Final No growth in 5 days. 07/24/20 14:20 Blood Culture (Wb) - Anticubital Right Blood Culture - Final No growth in 5 days. Laboratory Results 07/30/20 12:28: POC Glucose 111 H 07/30/20 17:01: POC Glucose 206 H 07/30/20 20:30: POC Glucose 195 H 07/31/20 08:37: POC Glucose 102 Current Medications Acetaminophen (Acetaminophen 325 Mg Tablet) 650 mg PO Q6H PRN PRN PRN Reason: Pain Score 1-10/Temp > 100.7 F Last Admin: 07/28/20 16:40 Dose: 650 mg Documented by: Al Hydroxide/Mg Hydroxide (Mag Hydrox/Al Hydrox/Simeth 30 Ml Udc) 30 ml PO Q6H PRN PRN PRN Reason: Gastric Burning Albuterol Sulfate (Albuterol Sulfate 8 Gm Inhaler (60 Puffs)) 1 puff INHALATION Q4H PRN PRN PRN Reason: Dyspnea, wheezing Amlodipine Besylate (Amlodipine 5 Mg Tablet) 5 mg PO DAILY [facility] Last Admin: 07/31/20 08:57 Dose: 5 mg Documented by: Aspirin (Aspirin 81 Mg Tab.Chew) 81 mg PO DAILY [facility] Last Admin: 07/31/20 08:55 Dose: 81 mg Documented by: Atorvastatin Calcium (Atorvastatin Calcium 80 Mg Tablet) 80 mg PO QHS [facility] Last Admin: 07/30/20 20:39 Dose: 80 mg Documented by: Calcium Acetate (Calcium Acetate 667 Mg Capsule) 667 mg PO TIDCM [facility] Last Admin: 07/31/20 11:19 Dose: 667 mg Documented by: Carvedilol (Carvedilol 12.5 Mg Tablet) 12.5 mg PO BID [facility] Last Admin: 07/31/20 08:56 Dose: 12.5 mg Documented by: Dexamethasone (Dexamethasone 4 Mg Tablet) 6 mg PO DAILY [facility] Stop: 08/03/20 10:01 Last Admin: 07/31/20 08:56 Dose: 6 mg Documented by: Finasteride (Finasteride 5 Mg Tablet) 5 mg PO DAILY [facility] Last Admin: 07/31/20 08:57 Dose: 5 mg Documented by: Guaifenesin (Guaifenesin 10 Ml Udc (200mg/10ml)) 20 ml PO Q4H PRN PRN PRN Reason: COUGH Hydralazine HCl (Hydralazine 25 Mg Tablet) 25 mg PO TID [facility] Last Admin: 07/31/20 05:24 Dose: 25 mg Documented by: Hydralazine HCl (Hydralazine 20 Mg/Ml Vial) 10 mg IV Q4H PRN PRN PRN Reason: SBP > 160 Sodium Chloride () 250 mls @ 15 mls/hr IV .[id number] PRN PRN Reason: Saline Flush Last Infusion: 07/29/20 16:14 Dose: Infused Documented by: Sodium Chloride () 250 mls @ 15 mls/hr IV .[id number] PRN PRN Reason: Additional IVPB Infusion Insulin Glargine (Insulin Glargine 100 Units/Ml Pen) 10 units SC 0700 [facility] Last Admin: 07/31/20 08:53 Dose: 10 u Documented by: Insulin Human Lispro (Insulin Lispro 100 Unit/Ml Insuln.Pen) 0 unit SC ACHS [facility]; Protocol Last Admin: 07/31/20 11:19 Dose: Not Given Documented by: Levetiracetam (Levetiracetam 500 Mg Tablet) 500 mg PO BID [facility] Last Admin: 07/31/20 08:57 Dose: 500 mg Documented by: Magnesium Hydroxide (Magnesium Hydroxide 30 Ml Udc) 30 ml PO DAILY PRN PRN PRN Reason: Constipation Melatonin (Melatonin 3 Mg Tablet) 3 mg PO QHS PRN PRN PRN Reason: INSOMNIA Nitroglycerin (Nitroglycerin (Inpatient Use) 0.4 Mg Tab.Subl) 0.4 mg SUBLINGUAL Q5M PRN PRN Reason: CARDIAC/CHEST PAIN Ondansetron HCl (Ondansetron 4 Mg/2 Ml Vial) 4 mg IV Q8H PRN PRN PRN Reason: NAUSEA/VOMITING Oxycodone HCl (Oxycodone 5 Mg Tablet) 5 mg PO Q4H PRN PRN PRN Reason: Pain Score 4-5 Last Admin: 07/27/20 21:25 Dose: 5 mg Documented by: Pantoprazole Sodium (Pantoprazole Sodium 40 Mg Tablet) 40 mg PO DAILY [facility] Last Admin: 07/31/20 08:58 Dose: 40 mg Documented by: Prochlorperazine Edisylate (Prochlorperazine 10 Mg/2 Ml Vial) 5 mg IV Q4H PRN PRN PRN Reason: Breakthrough Nausea/Vomiting Psyllium Hydrophilic Mucilloid (Psyllium 1 Packet) 1 packet PO DAILY PRN PRN PRN Reason: Constipation Rivaroxaban (Rivaroxaban 10 Mg Tablet) 10 mg PO DAILY [facility] Last Admin: 07/31/20 08:58 Dose: 10 mg Documented by: Senna/Docusate Sodium (Senna/Docusate Sodium 1 Tablet) 2 tablet PO BID PRN PRN PRN Reason: Constipation Sodium Chloride (0.9% Saline Lock 10 Ml Syringe) 10 - 40 ml IV UD PRN PRN Reason: SALINE FLUSH Last Admin: 07/29/20 11:29 Dose: 10 ml Documented by: Tamsulosin HCl (Tamsulosin Hcl 0.4 Mg Capsule) 0.8 mg PO QHS [facility] Last Admin: 07/30/20 20:39 Dose: 0.8 mg Documented by: Throat Lozenges (Benzocaine/Menthol 1 Lozenge) 1 lozenge MUCOUS MEM Q2H PRN PRN PRN Reason: SORE THROAT Medical Necessity - Tobacco Use Smoking Status: Former smoker Tobacco Use: Non-smoker Assessment/Plan All Active Problems (Last Updated 07/29/20 @ 12:08 by Maribel Griffiths) COVID-19 (Acute 07/24/20) History of non-ST elevation myocardial infarction (NSTEMI) (Resolved 07/24/20) H/O coronary artery bypass surgery (Resolved 11/10/12) History of coronary artery stent placement (Resolved 03/28/09) Generalized weakness (Resolved) Problem with dialysis access (Resolved) Aspiration into airway (Ruled-out) ESRD continue Friday dialysis for dialysis today 2 hours . Leaving for halfway today Anemia monitor RORY with HD HTN continue meds controlled CKD MBD binders monitor ca phos COVID-19 per primary
[2020-07-31 11:36] LABS: Bedside Glucose 146 mg/dL (70-110)
--- NOTE | 2020-07-31 11:46 | CASEMGMT ---
CASSANDRA CASTILLO Note: Patient is agreeable to go to the [facility] today. CASSANDRA CASTILLO spoke with Dr. Reese, wire stitcher operator to update that the facility will do dialysis on Friday and Friday this week. Per Dr. Reese, patient is to have a 2 hour run today prior to dc. Dialysis nurse updated that we would like to dc patient to SNF today if they could facilitate earlier dialysis for patient. RN will call her manager instrumentation to attempt to have pt's dialysis today earlier. -dialysis orders and run sheets from 07/30/20 faxed to Kanchan @ [facility]. Call to [facility] to update on above. Jace CHAUHAN RN [facility]
--- NOTE | 2020-07-31 16:03 | CASEMGMT ---
Social Work Return call from the [facility] and pt can admit when medically ready. Phone call to pt dgt and notified of accepting facility and that pt is willing to go to facility. Pt will need dialysis today and may go after dialysis tonight or in the morning. Physician notified. Plan: [facility], when medically ready GOLDIE Soria
[2020-07-31 16:10] LABS: Bedside Glucose 197 mg/dL (70-110)
[2020-07-31] MEDS: Insulin Lispro 100 UNIT/ML INSULN.PEN SC ×2 (17:18→21:07)
--- NOTE | 2020-07-31 17:35 | DS.PCM_ITS ---
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 angioplasty01/01/16 ; left superficial femoral artery and left popliteal artery angioplasty 05/16/[address] Kamara End-stage renal disease on hemodialysis (Chronic) Diabetes mellitus, type 2 (Chronic) Frequent falls (Chronic) Hospital Course and Treatment Imaging Results: Clinical Impression(s) from Imaging Studies Chest X-Ray 07/24/20 14:16 IMPRESSION: Hyperinflation. The lungs are clear. Electronically Signed: Attila Cabello, at 15:43 EST , Service support , Wrist X-Ray 07/29/20 12:37 IMPRESSION: Well-corticated osseous density adjacent to the ulnar styloid, consistent with prior trauma. No acute fracture or dislocation. Mild degenerative change. Electronically Signed: Chip Ortiz, at 14:00 EST Tel , Service support , Consults: ID Nephrology Cardiology Operations: None Procedures: None Summary of Care Provided: Per HPI: The patient is a 69 y/o M w/ PMHx: CAD s/p CABG x 3, HTN, HLD, Hx L Parietal CVA, Hx SDH/Intraventricular hemorrhage 07/2019 with seizure disorder resulting, PVD/PAD s/p BL LE angioplasties, GERD, ESRD on HD, BPH, Diabetes mellitus type II uncontrolled who presents to the [facility] ED on 07/24/20 with history of fatigue, weakness, debility, ongoing cough with dyspnea, mild confusion x 3 days sent to the ED for evaluation secondary to onset of fever 101 at dialysis with no associated body aches, headaches, alteration in sense of taste or smell prompting evaluation. Patient notes that he was last tested the Friday prior and was negative for Covid at that time. Patient notes that he only received approximately 75% of his dialysis timeline secondary to onset of symptoms. He notes he had AVF surgery LUE per Dr. Kamara on 07/18/20 without issues. He denies any significant chest pain, but does note some difficulty with inspiratory effort. In the ED following presentation he clinically improved and was more oriented. Work-up in the ED included T 97.4, heart rate 80, BP 105/76, respiratory rate 18, 97% on room air, CBC with WBC 8.2, hemoglobin 10.7, platelet 230 with no marked shift, CMP with carbon DEXA 34, BUN/creatinine 37/6.26, glucose 91, AST/ALT 62/17, alk phos 57, ammonia 32, troponin 1.880, acetone level negative, positive Covid testing, but culture x2 pending per ED, chest x-ray with hyperinflation with no acute cardiopulmonary findings otherwise, EKG in ED w/ SR with mildly widened QRS, RBBB. Hospital Course: 1. Acute hypoxic respiratory insufficiency secondary to COVID-19 pneumonia/non- STEMI/CAD status post CABG/PAD status post bilateral stents/[id number]-dtuf-old male who presented to the hospital on 07/24/2020 with fatigue, weakness, debility, and ongoing cough with dyspnea. He tested positive for Covid on admission and was sent to the cohort floor. He did complete a remdesivir course and was started on Decadron. He has been maintaining his oxygen saturations on room air for the last several days. He will need three more days of Decadron once discharged. His director epidemiology had recommended that he receive another run of dialysis on the day of discharge. Because of his non-STEMI as well as the issues with Covid, he was discharged on Xarelto 10mg for 2 weeks. He will be outside of precautions on 08/10/2020, and after that date he should have further cardiac work-up with a 2D echo to determine whether he needs to have cardiac cath as an outpatient. I discussed with him the plan for discharge today and he expressed understanding the risk and benefits of [facility] and would like to go home today. 2. Left hand numbness and tingling-he had carpal tunnel surgery over 25 years ago on both wrists and is currently complaining of some numbness and tingling in his left fingers and when I tap on his wrist he says that he has shooting pain to the tips of his fingers. Would recommend a wrist splint and follow-up with hand surgery as an outpatient. 3. Type 2 diabetes, end-stage renal disease on hemodialysis, history of subdural hematoma, GERD, are all chronic medical conditions which complicate his care. His home medications were continued where appropriate Patient Problems: Active and Suspected Problems (Last Updated 07/29/20 @ 12:08 by Maribel Griffiths) COVID-19 (Acute 07/24/20) - Physical Exam Vitals/I&O's: Vital Signs Temp Pulse Resp BP Pulse Ox 98.3 F 59 L 18 105/53 L 92 07/31/20 17:25 07/31/20 17:25 07/31/20 17:25 07/31/20 17:25 07/31/20 17:25 Oxygen Flow Rate (L/min) 95 Oxygen Delivery Method Room Air Weight: 156 lb 15.506 oz Body Mass Index (BMI) 21.5 Finger Stick Blood Glucose 480 Intake and Output for Last 24 Hours 07/29/20 07/30/20 07/31/20 23:59 23:59 23:59 Intake Total 731 / 731 460 / 460 360 / 360 Output Total 1000 / 1000 2200 / 2200 Balance -269 / -269 -1740 / -1740 360 / 360 General: Alert, Oriented x3, Cooperative, No apparent distress HEENT: Atraumatic, PERRLA, EOMI, Normocephalic Oral: Moist Mucosa Neck: Supple, No JVD Lungs: Normal air movement, No rhonchi, No wheeze, No rales, Diminished Cardiovascular: Regular rate, Regular Rhythm, Normal S1, Normal S2, No murmurs Abdomen: Soft, Non Tender, Non-Distended, No Hepato-splenomegaly Extremities: No edema, Capillary Refill Less than 3 Seconds Skin: No rashes, No breakdown Musculoskeletal: - - Positive Tinel's and Phalen sign of the left wrist Neurological: Neuro grossly intact, Sensory exam intact to light touch and pain Psych/Mental Status: Normal Affect, Appropriate Microbiology Past 72 Hours 07/24/20 16:15 Blood Culture (Wb) - Anticubital Right Blood Culture - Final No growth in 5 days. 07/24/20 14:20 Blood Culture (Wb) - Anticubital Right Blood Culture - Final No growth in 5 days. Laboratory Results 07/30/20 20:30: POC Glucose 195 H 07/31/20 08:37: POC Glucose 102 07/31/20 11:18: POC Glucose 146 H 07/31/20 16:03: POC Glucose 197 H Current Medications Acetaminophen (Acetaminophen 325 Mg Tablet) 650 mg PO Q6H PRN PRN PRN Reason: Pain Score 1-10/Temp > 100.7 F Last Admin: 07/28/20 16:40 Dose: 650 mg Documented by: Al Hydroxide/Mg Hydroxide (Mag Hydrox/Al Hydrox/Simeth 30 Ml Udc) 30 ml PO Q6H PRN PRN PRN Reason: Gastric Burning Albuterol Sulfate (Albuterol Sulfate 8 Gm Inhaler (60 Puffs)) 1 puff INHALATION Q4H PRN PRN PRN Reason: Dyspnea, wheezing Amlodipine Besylate (Amlodipine 5 Mg Tablet) 5 mg PO DAILY [facility] Last Admin: 07/31/20 08:57 Dose: 5 mg Documented by: Aspirin (Aspirin 81 Mg Tab.Chew) 81 mg PO DAILY [facility] Last Admin: 07/31/20 08:55 Dose: 81 mg Documented by: Atorvastatin Calcium (Atorvastatin Calcium 80 Mg Tablet) 80 mg PO QHS [facility] Last Admin: 07/30/20 20:39 Dose: 80 mg Documented by: Calcium Acetate (Calcium Acetate 667 Mg Capsule) 667 mg PO TIDCM [facility] Last Admin: 07/31/20 17:16 Dose: 667 mg Documented by: Carvedilol (Carvedilol 12.5 Mg Tablet) 12.5 mg PO BID [facility] Last Admin: 07/31/20 08:56 Dose: 12.5 mg Documented by: Dexamethasone (Dexamethasone 4 Mg Tablet) 6 mg PO DAILY [facility] Stop: 08/03/20 10:01 Last Admin: 07/31/20 08:56 Dose: 6 mg Documented by: Finasteride (Finasteride 5 Mg Tablet) 5 mg PO DAILY [facility] Last Admin: 07/31/20 08:57 Dose: 5 mg Documented by: Guaifenesin (Guaifenesin 10 Ml Udc (200mg/10ml)) 20 ml PO Q4H PRN PRN PRN Reason: COUGH Hydralazine HCl (Hydralazine 25 Mg Tablet) 25 mg PO TID [facility] Last Admin: 07/31/20 13:43 Dose: Not Given Documented by: Hydralazine HCl (Hydralazine 20 Mg/Ml Vial) 10 mg IV Q4H PRN PRN PRN Reason: SBP > 160 Sodium Chloride () 250 mls @ 15 mls/hr IV .[id number] PRN PRN Reason: Saline Flush Last Infusion: 07/29/20 16:14 Dose: Infused Documented by: Sodium Chloride () 250 mls @ 15 mls/hr IV .[id number] PRN PRN Reason: Additional IVPB Infusion Insulin Glargine (Insulin Glargine 100 Units/Ml Pen) 10 units SC 0700 [facility] Last Admin: 07/31/20 08:53 Dose: 10 u Documented by: Insulin Human Lispro (Insulin Lispro 100 Unit/Ml Insuln.Pen) 0 unit SC ACHS [facility]; Protocol Last Admin: 07/31/20 17:18 Dose: 2 units Documented by: Levetiracetam (Levetiracetam 500 Mg Tablet) 500 mg PO BID [facility] Last Admin: 07/31/20 08:57 Dose: 500 mg Documented by: Magnesium Hydroxide (Magnesium Hydroxide 30 Ml Udc) 30 ml PO DAILY PRN PRN PRN Reason: Constipation Melatonin (Melatonin 3 Mg Tablet) 3 mg PO QHS PRN PRN PRN Reason: INSOMNIA Nitroglycerin (Nitroglycerin (Inpatient Use) 0.4 Mg Tab.Subl) 0.4 mg SUBLINGUAL Q5M PRN PRN Reason: CARDIAC/CHEST PAIN Ondansetron HCl (Ondansetron 4 Mg/2 Ml Vial) 4 mg IV Q8H PRN PRN PRN Reason: NAUSEA/VOMITING Oxycodone HCl (Oxycodone 5 Mg Tablet) 5 mg PO Q4H PRN PRN PRN Reason: Pain Score 4-5 Last Admin: 07/27/20 21:25 Dose: 5 mg Documented by: Pantoprazole Sodium (Pantoprazole Sodium 40 Mg Tablet) 40 mg PO DAILY [facility] Last Admin: 07/31/20 08:58 Dose: 40 mg Documented by: Prochlorperazine Edisylate (Prochlorperazine 10 Mg/2 Ml Vial) 5 mg IV Q4H PRN PRN PRN Reason: Breakthrough Nausea/Vomiting Psyllium Hydrophilic Mucilloid (Psyllium 1 Packet) 1 packet PO DAILY PRN PRN PRN Reason: Constipation Rivaroxaban (Rivaroxaban 10 Mg Tablet) 10 mg PO DAILY [facility] Last Admin: 07/31/20 08:58 Dose: 10 mg Documented by: Senna/Docusate Sodium (Senna/Docusate Sodium 1 Tablet) 2 tablet PO BID PRN PRN PRN Reason: Constipation Sodium Chloride (0.9% Saline Lock 10 Ml Syringe) 10 - 40 ml IV UD PRN PRN Reason: SALINE FLUSH Last Admin: 07/29/20 11:29 Dose: 10 ml Documented by: Tamsulosin HCl (Tamsulosin Hcl 0.4 Mg Capsule) 0.8 mg PO QHS [facility] Last Admin: 07/30/20 20:39 Dose: 0.8 mg Documented by: Throat Lozenges (Benzocaine/Menthol 1 Lozenge) 1 lozenge MUCOUS MEM Q2H PRN PRN PRN Reason: SORE THROAT Home Medications: Medications to take at Discharge Finasteride 5 mg PO DAILY 07/30/19 Amlodipine [Norvasc] 5 mg PO DAILY 05/26/20 Aspirin [Aspirin, Baby] 81 mg PO DAILY@0800 05/26/20 Atorvastatin Calcium 80 mg PO QHS 05/26/20 levETIRAcetam tablet [Keppra tablet] 500 mg PO BID 05/26/20 Carvedilol [Coreg] 12.5 mg PO BID 05/27/20 Insulin Glargine,Hum.rec.anlog [Basaglar Kwikpen U-100] 10 unit SQ BREAKFAST 06/07/20 Fenofibrate,Micronized [Fenofibrate] 67 mg PO DAILY 06/08/20 Calcium Acetate [Phoslo Gel Cap] 667 mg PO TIDCM 07/12/20 Hydralazine HCl 25 mg PO TID 07/24/20 Pantoprazole Sodium [Protonix] 40 mg PO DAILY 07/24/20 Tamsulosin HCl [Flomax] 0.8 mg PO QHS 07/24/20 Dexamethasone [Decadron] 6 mg PO DAILY #6 tab 07/28/20 Rivaroxaban [Xarelto] 10 mg PO DAILY #14 tab 07/28/20 Following Prescriptions Were Given to Patient: Dexamethasone [Decadron] 6 mg PO DAILY #6 tab Prescription Printed Rivaroxaban [Xarelto] 10 mg PO DAILY #14 tab Prescription Printed Primary Care Physician: Paul Martinez Chi, MD [Primary Care Provider] - Please follow up with your Primary Care Physician in: 1-2 weeks Patient Instructions: Coronavirus Disease 2019 (COVID-19): Overview, Coronavirus Disease 2019 (COVID-19): Caring for Yourself or Others Disposition: Senior Care facility Minutes spent on discharge:: 35 Patient Condition:: Stable Medical Necessity - Tobacco Use Smoking Status: Former smoker Tobacco Use: Non-smoker Meaningful Use Info Meaningful Use Diagnoses (Choose all that apply): None applicable Inpatient E&M: 17120 Disch Hosp
--- NOTE | 2020-07-31 17:47 | NURSING ---
Report called to the [facility] for pt d/c transfer to their facility.
--- NOTE | 2020-07-31 18:41 | DIALYSIS ---
2hr tx today. 3k uf -1000ml. tolerated well. no issues.
--- NOTE | 2020-07-31 19:40 | NURSING ---
physicians ambulance to cloth picker at 2044. pt aware stated he wanted to stay a few more days explained to pt he has been discharged by the dr and a bed is available at the [facility]. Dr. Osorio talked to pt again and pt is agreeable
[2020-07-31] MEDS: Tamsulosin HCl 0.4 MG Capsule 0.8 MG PO (21:05)
[2020-07-31] MEDS: Atorvastatin Calcium 80 MG Tablet PO (21:06)
[2020-07-31 22:41] LABS: Bedside Glucose 181 mg/dL (70-110)
== END 2020-07-31 21:20 | DRG 177 ==
LOC: ED 15:30 → MS2 19:32
PROVIDERS: Family Medicine; Internal Medicine Infectious Disease; Student in an Organized Health Care Education/Training Program; Admitting Provider Family Medicine; Emergency Provider Student in an Organized Health Care Education/Training Program; PCP Family Medicine Geriatric Medicine; Visit Provider Family Medicine
DX: U07.1 COVID-19 (principal); I21.4 Non-ST elevation (NSTEMI) myocardial infarction; N18.6 End stage renal disease; I12.0 Hypertensive chronic kidney disease with stage 5 chronic kidney disease or end stage renal disease; R06.89 Other abnormalities of breathing; R09.02 Hypoxemia; E11.22 Type 2 diabetes mellitus with diabetic chronic kidney disease; E11.51 Type 2 diabetes mellitus with diabetic peripheral angiopathy without gangrene; E11.65 Type 2 diabetes mellitus with hyperglycemia; E78.00 Pure hypercholesterolemia, unspecified; G56.02 Carpal tunnel syndrome, left upper limb; I25.10 Atherosclerotic heart disease of native coronary artery without angina pectoris; D63.8 Anemia in other chronic diseases classified elsewhere; Z99.2 Dependence on renal dialysis; Z95.1 Presence of aortocoronary bypass graft; Z87.891 Personal history of nicotine dependence; K21.9 Gastro-esophageal reflux disease without esophagitis; G40.909 Epilepsy, unspecified, not intractable, without status epilepticus; N40.0 Benign prostatic hyperplasia without lower urinary tract symptoms; Z86.73 Personal history of transient ischemic attack (TIA), and cerebral infarction without residual deficits; F32.9 Major depressive disorder, single episode, unspecified; Z79.82 Long term (current) use of aspirin; Z79.4 Long term (current) use of insulin; Z79.899 Other long term (current) drug therapy; I44.0 Atrioventricular block, first degree; I45.10 Unspecified right bundle-branch block; Z95.828 Presence of other vascular implants and grafts; I25.2 Old myocardial infarction; E78.5 Hyperlipidemia, unspecified
CPT/HCPCS: 36415; 71045; 73110; 80053; 80061; 82009; 82140; 82728; 82803; 82962; 83615; 83735; 84145; 84484; 85025; 85027; 85379; 85610; 85730; 86140; 87040; 87633; 87635; 90937; 93005; 97110; 97116; 97162; 97166; 97530; 97535; 99251; 99285; J7030; J7050; A4216; G0257; G0463; Q5106; U0002

== ENCOUNTER → 2020-12-28 14:57 | Outpatient (CLI) | payer MEDICARE, SELFPAY ==
--- NOTE | 2020-12-28 15:00 | AVDS_ITS ---
Reason For Study: end stage renal disease LEFT Inflow artery 108.9/13.9 cm/s Inflow artery Vol flow 163.7 ml/min Prox anast 484.9/266.8 cm/s Prox anast Vol flow 2527 ml/min Prox graft 260.3/125.7 cm/s Prox graft Vol flow 1872 ml/min Mid graft 139.7/65.1 cm/s Mid graft Vol flow 1600 ml/min Dist graft 159.3/65.1 cm/s Dist graft Vol flow 1515 ml/min Outflow 581.4/305.5 cm/s Outflow Vol flow 4905 ml/min Radial art at the wrist 82.9 cm/s Ulnar art at the wrist 36.0 cm/s. VL/AV Fistula/Dialysis Graft Scan Interpretation Summary High flow left upper extremity arteriovenous hemodialysis fistula with proximal fistula volume flow 872 mm/min and mid fistula flow 1600 mm/min and distal fistula flow 1515 mm a m inute The proximal fistula measures approximately 0.67 x 0.76 cm in diameter The mid fistula measures 0.8 x 0.91 cm in diameter The distal fistula measures 1.05 x 1.17 cm in diameter There is noted to be antegrade flow in the left radial artery at the wrist at 8 2.9 cm/s flow The left ulnar artery at the wrist has a flow rate of 36 cm/s Findings of the studies suggest a larger diameter arteriovenous hemodialysis fi stula with high flow. Reversal of flow is not identified in either the left radial or ulnar arteries Ordering Physician: Merary Wise Performed By: Reynaldo Andres RVT
== END ==
PROVIDERS: Referring Provider Physician Assistant; Visit Provider Physician Assistant
DX: N18.6 End stage renal disease (principal); Z99.2 Dependence on renal dialysis
CPT/HCPCS: 93990

== ENCOUNTER → 2021-06-13 14:11 | Outpatient (CLI) | payer MEDICARE, SELFPAY ==
--- NOTE | 2021-06-13 16:13 | NEURO ---
NCS and/or EMG Patient Report Ordering Doctor: Memo Arroyo DATE OF SERVICE: 06/13/21 Kris presents for electrodiagnostic testing of the left upper limb. He reports severe pain and numbness in the left hand. He demonstrates muscle atrophy. He is unable to straighten digits 3 through 5. He has hypersensitivity to touch and reports a history of stroke affecting the left arm in 2019. He has a fistula in the left arm for dialysis Electrodiagnostic findings: Left median ulnar responses could not be obtained. Sensory responses could not be obtained. The patient had poor tolerance for needle EMG testing. There were 1+ fibrillations noted in the left pronator teres and first dorsal interosseous with decreased recruitment. No abnormality in the flexor carpi ulnaris. Testing was not done above the elbow due to the presence of the fistula and poor tolerance for the examination. Electrodiagnostic impression: This is a limited electrodiagnostic study of the left upper limb. Due to the inability to obtain motor or sensory responses, an accurate assessment regarding the possibility of carpal tunnel syndrome cannot be obtained. No definitive assessment can be made regarding peripheral neuropathy. Additionally, due to the limited needle testing of the left upper limb, further assessment cannot be made. The patient does have significant atrophy and pain in the left arm, limiting the quality of the test. If there are any further questions, please do not hesitate to contact me
== END ==
PROVIDERS: Referring Provider Physician Assistant; Visit Provider Physician Assistant
DX: R20.2 Paresthesia of skin (principal)
CPT/HCPCS: 95886; 95910

== ENCOUNTER 2022-04-19 15:22 | Observation (INO) | payer MEDICARE, MEDICAID, SELFPAY ==
[2022-04-19] VITALS (8 sets, daily range): BP systolic 121–140; BP diastolic 48–91; PULSE 61–66; RESP 15–18; TEMP 36.6–37; O2SAT 93–99; BMI 25.0; BMI 24.0
--- NOTE | 2022-04-19 15:28 | EDS_ITS ---
HPI History of Present Illness Chief Complaint: Fall Detail of Chief Complaint: Chief complaint is generalized weakness not falls Informant: patient and EMS Onset/Context/Timing Onset: Days Context: Gradual Onset Timing: Continuous Quality: Generalized weakness Location: Not applicable Current Severity: Mild Maximum Severity: Moderate Worsened by: Nothing Relieved by: Nothing Associated Symptoms Associated Symptoms: Last fall April 16 Narrative Narrative: Patient is a 71-year-old male who lives with his spouse. He presents by ambul ance from dialysis. He last fell on Friday. He has abrasions to his legs. He states his last tetanus was 1 year ago. He denies head trauma. [place] headache. Denies double vision, blurred vision or loss of vision. He denies ringing his ears decreased hearing. [place] trouble speech or swallowing. He denies chest pain, orthopnea or PND. He does endorse nonproductive cough. He denies GI symptoms. He does make urine and denies urologic symptoms. When asked if he was diabetic he states have been told I am not. However when asked if he is on medication he responded yes. Review of records indicate patient does have history of fall. Patient was asked if there is no medical reason for admission is does he wish to be placed in a skilled nursing. His response was God know . Prior similar symptoms: Yes Recent Illness/Hospitalization: Yes [facility] Medical History (Updated 04/19/22 @ 16:[address] 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 Closed intraventricular hemorrhage COVID-19 virus detected (07/24/20) Debility Depression Diabetes mellitus, type 2 Diverticulosis End-stage renal disease on hemodialysis Essential (primary) hypertension Fatigue Frequent falls GERD (gastroesophageal reflux disease) History of CVA (cerebrovascular accident) (08/2017) History of non-ST elevation myocardial infarction (NSTEMI) (07/24/20) Hyperlipidemia Intracerebral hemorrhage Left ventricular hypertrophy Peripheral vascular occlusive disease Problem with dialysis access Right bundle branch block (RBBB) Subdural hematoma (07/22/19) Subdural hemorrhage Tobacco dependence in remission Home Medications Finasteride 5 mg PO DAILY PROSTATE 07/30/19 [History Last Taken 07/24/20] amlodipine 5 mg tablet 5 mg PO DAILY BP 05/26/20 [History Last Taken 04/19/22] aspirin 81 mg chewable tablet 81 mg PO DAILY@0800 HEALTH MAINTENANCE 05/26/20 [History Last Taken 04/19/22] atorvastatin 80 mg tablet 80 mg PO QHS CHOLESTEROL 05/26/20 [History Last Taken 04/18/22] levetiracetam 500 mg tablet 500 mg PO BID SEIZURES 05/26/20 [History Last Taken 07/24/20] carvedilol 12.5 mg tablet 12.5 mg PO BID HEART 05/27/20 [History Last Taken 07/24/20] fenofibrate micronized 67 mg capsule 67 mg PO DAILY CHOLESTEROL 06/08/20 [History Last Taken 07/24/20] calcium acetate(phosphat bind) 667 mg capsule 667 mg PO TIDCM 07/12/20 [History Last Taken 07/24/20] hydralazine 25 mg tablet 25 mg PO TID ANXIETY 07/24/20 [History Last Taken 07/24/20] pantoprazole 40 mg tablet,delayed release 40 mg PO DAILY GERD 07/24/20 [History Last Taken 07/24/20] tamsulosin 0.4 mg capsule 0.8 mg PO QHS PROSTATE 07/24/20 [History Last Taken 07/23/20] losartan 50 mg tablet 50 mg PO DAILY 12/13/20 [History Last Taken Unknown] melatonin 5 mg capsule 6 mg PO QHS 12/13/20 [History Last Taken Unknown] polyethylene glycol 3350 17 gram/dose oral powder (Miralax) 17 g PO DAILY 12/13/20 [History Last Taken Unknown] sennosides 8.6 mg capsule (senna) 8.6 mg PO DAILY 12/13/20 [History Last Taken Unknown] Allergy/AdvReac Type Severity Reaction Status Date / Time No Known Allergies Allergy Verified 04/19/22 15:34 Family History Brother Diabetes Mother Hypertension Daughter Diabetes Surgical History H/O coronary artery bypass surgery (11/10/12) History of angioplasty of peripheral vessel (05/16/19) History of coronary artery stent placement (03/28/09) Social History (Updated 04/19/22 @ 15:[address] Nikko Gutierrez MD) household members: spouse Smoking Status: Former smoker alcohol intake: never substance use type: does not use caffeine: No what type of physical activity do you participate in: none frequency: does not exercise ROS ROS ED Constitutional Constitutional ED: Denies chills, fever(s), subjective, sweats or weight loss Eyes Eyes: Denies blurry vision, change in vision or diplopia ENT ENT ED: Denies ear pain, rhinorrhea or sore throat Cardiovascular Cardiovascular: Denies chest pain, orthopnea, palpitations or racing heartbeat Respiratory/Chest Respiratory/Chest: Reports cough; Denies dyspnea, dyspnea on exertion or orthopnea Gastrointestinal Gastrointestinal: Denies abdominal pain, diarrhea, melena, nausea or vomiting Genitourinary Genitourinary ED: Denies dysuria, hematuria or urinary frequency Musculoskeletal Musculoskeletal: Denies arthralgias, back pain, myalgias or neck pain Integumentary Reports Abrasions; Denies rash Neurologic Neurologic: Reports weakness; Denies headache(s) or paresthesias Psychiatric Psychiatric: Denies anxiety or depression Hematologic/Lymphatic Hematologic/Lymphatic: Reports systems reviewed and no addt'l complaints, except as documented Allergic/Immunologic Allergic/Immunologic ED: Reports mouth swelling EXAM Physical Exam Const Vital Signs: 04/19/22 15:23 04/19/22 15:28 04/19/22 15:28 Temperature 97.9 F 97.9 F 97.9 F Temperature Source Oral Oral Oral Pulse Rate 61 61 61 Respiratory Rate 18 16 16 Respiratory Effort Respiratory Depth Respiratory Pattern Blood Pressure 140/91 H 140/91 H 140/91 H Blood Pressure Mean 107 107 107 Pulse Ox 99 97 98 Oxygen Delivery Method Room Air Room Air Room Air 04/19/22 15:30 Temperature 97.9 F Temperature Source Pulse Rate Respiratory Rate Respiratory Effort Normal Non-Labored Respiratory Depth Normal Respiratory Pattern Normal Blood Pressure Blood Pressure Mean Pulse Ox 94 Oxygen Delivery Method Room Air Positive well nourished, well developed and unkempt; Negative for obese, cachectic or contractures General Appearance ED: unkempt, well developed and NAD; Negative for cachectic, contractures, cyanotic, diaphoretic or pallor Nutritional Appearance: Negative for cachectic or obese HEENT Reports dry mucous membranes HEENT Narrative: Head is atraumatic normocephalic. Ears normal. TMs normal. Nares patent. No drainage. Uvula midline. No deviation tongue protrusion. No erythema or exudate of posterior pharynx. Mouth ED: Yes dry mucous membranes Mouth: dry mucous membranes Eyes PERRL and EOMs intact bilaterally General Eye ED: Negative for pale conjunctiva or scleral icterus Neck no lymphadenopathy, supple and no JVD Chest Wall palpation of chest normal; Negative for inspection of chest normal Chest Narrative: Patient has a well-healed mid sternotomy scar. Resp normal respiratory effort and clear to auscultation bilaterally Cardio regular rate, regular rhythm, S1 normal heart sound, S2 normal heart sound and no murmurs GI non-tender, non-distended and no masses; Negative for hepatosplenomegaly GI Narrative: Patient has a 3 cm midline supraumbilical incision is well-healed. Patient does not know why he has this incision. Auscultation: normoactive bowel sounds Palpation: soft; Negative for tender or mass Back/Spine no CVA tenderness Cervical Spine: Negative for cervical spine tenderness Thoracic Spine / Upper Back: Negative for thoracic spinal tenderness Lumbar Spine / Lower Back: Negative for lumbar spinal tenderness Extremity Negative for normal to inspection Extremity Narrative: Multiple abrasions noted anterior right and left leg. Neuro oriented x3, CN's II-XII intact bilaterally and no sensory deficits noted Sensorium / Orientation: alert Motor Exam: strength 5/5 throughout Psych Appearance: unkempt Skin no rashes or lesions noted, No no wounds and No skin turgor normal Skin Narrative: There are abrasions are well-healed without evidence of infection. General Skin Exam: Negative for elasticity normal, jaundice or pallor MDM MDM MDM Narrative Medical decision making narrative: Patient with very vague symptoms. States he does have a cough for the past several days will obtain chest x-ray rule out pneumonia. CBC will be obtained to rule out anemia. Competence of metabolic and to assess electrolytes. Jose M from case management saw patient. He wishes to go to rehab. Patient has not insurance he will need precertification. Leta states she will work on placement tomorrow. Hospitalist has been paged Lab Data Attestation: I reviewed the patient's lab results. Lab results narrative: White count is normal. Patient is anemic, which is chronic. Competence Brianna panel indicates elevated CO2 with a normal anion gap. BUN and creatinine are 37 and 6.45 respectively. AST and ALT are elevated at 174 and 72 respectively. Total bili is normal. Review of prior laboratory results indicates that patient has had elevated ALT and AST in the past. Labs: Laboratory Results - last 24 hr 04/19/22 04/19/22 15:50 15:50 WBC 6.5 RBC 3.11 L Hgb 9.6 L Hct 29.1 L MCV 93.6 MCH 30.9 MCHC 33.0 RDW Std Deviation 47.1 H RDW Coeff of Arturo 14.1 Plt Count 179 MPV 9.7 Immature Gran % (Auto) 0.300 Neut % (Auto) 75.1 H Lymph % (Auto) 13.5 L [place] % (Auto) 7.9 Eos % (Auto) 2.9 Baso % (Auto) 0.3 Absolute Neuts (auto) 4.9 Absolute Lymphs (auto) 0.87 Nucleated RBC % 0 Sodium 141 Potassium 3.8 Chloride 99 Carbon Dioxide 35.0 H Anion Gap 7 BUN 37 H Creatinine 6.45 H Estim Creat Clear Calc 9.87 Est GFR (MDRD) Af Amer 11 L Est GFR (MDRD) Non-Af 9 L BUN/Creatinine Ratio 5.7 L Glucose 125 H Calcium 8.7 Total Bilirubin 0.90 AST 174 H ALT 72 H Alkaline Phosphatase 71 Total Protein 6.4 Albumin 3.0 L Globulin 3.4 Albumin/Globulin Ratio 0.9 Radiography Chest X-Ray - ED: 2 View and Read by ED Physician (Independently reviewed and interpreted by me at 1630. Slightly rotated. Sternotomy wires noted. Cardiac silhouette and size unremarkable. Perihilar region unremarkable. Osseous trucks unremarkable. There is no evidence of infiltrate, CHF or effusion.) Diagnostic Testing: Clinical Impression(s) from Imaging Studies Chest X-Ray 04/19/22 16:00 IMPRESSION: 1. Borderline to mild cardiomegaly without heart failure. 2. No other evidence of active cardiopulmonary disease. No pneumonia, pneumonitis, or bronchitis. 3. Previous sternal thoracotomy. Electronically Signed: Wilfrid Valenzuela MD at 17:15 EDT , Discharge Plan Dx/Rx/DC Orders Clinical Impression: Generalized weakness, Frequent falls, Atherosclerotic heart disease of [place] coronary artery without angina pectoris, Essential (primary) hypertension, Peripheral vascular occlusive disease, Anemia due to chronic kidney disease, on chronic dialysis Disposition Disposition: Acute Care Hospital [facility]
--- NOTE | 2022-04-19 16:00 | RAD_ITS ---
STUDY: UPRIGHT CHEST SERIES--AP AND LATERAL VIEWS OF 1616 HOURS ON 04/19/2022 REASON FOR EXAM: 71-year-old male with nonproductive cough. TECHNIQUE: An upright AP and lateral chest x-ray series was performed per protocol. COMPARISON: 07/24/2020. FINDINGS: Previous sternal thoracotomy. Borderline to mild cardiomegaly without heart failure. No confluent infiltrates, atelectasis, effusion, or pulmonary mass lesions. No pneumonia, pneumonitis or bronchitis. No free subdiaphragmatic air. RAD/Chest PA and Lateral IMPRESSION: 1. Borderline to mild cardiomegaly without heart failure. 2. No other evidence of active cardiopulmonary disease. No pneumonia, pneumonitis, or bronchitis. 3. Previous sternal thoracotomy. Electronically Signed: Wilfrid Valenzuela MD at 17:15 EDT ,
[2022-04-19 16:04] LABS: Absolute Lymphocyte Count 0.87 X10^3/uL (0.83-4.51); Absolute Neutrophil Count 4.9 X10^3/uL (2.0-7.7); Basophil# 0.02 X10^3/uL; Basophil% 0.3 % (0-1); Eosinophil# 0.19 X10^3/uL; Eosinophils% 2.9 % (0-5); Hematocrit 29.1 % (40-54); Hemoglobin 9.6 g/dL (13.0-16.5); Lymphocyte # 0.87 X10^3/ul (0.83-4.51); Lymphocyte % 13.5 % (19-41); Mean Corpuscular Hgb 30.9 pg (27.0-32.0); Mean Corpuscular Volume 93.6 fL (80-94); Mean Platelet Vol. 9.7 fl (6.2-12.0); Monocyte# 0.51 X10^3/uL; Monocyte% 7.9 % (0-10); NRBC Flagged by Analyzer 0 % (0-5); Neutrophil # 4.85 X10^3/uL (2.7-7.7); Neutrophil % 75.1 % (47-70); Platelet Count 179 K/mm3 (150-450); RBC Distribution Width CV 14.1 % (11.6-14.6); RBC Distribution Width SD 47.1 fl (35.1-43.9); Red Blood Count 3.11 M/mm3 (4.6-6.2); White Blood Count 6.5 K/mm3 (4.4-11.0)
[2022-04-19 16:21] LABS: ALB/GLOB Ratio 0.9 RATIO (0.9-2.4); AST(SGOT) 174 U/L (15-37); Alanine Aminotransfer ALT/SGPT 72 U/L (16-61); Alkaline Phosphatase 71 U/L (45-117); Anion Gap 7 (5-15); BUN 37 mg/dL (7-18); BUN/Creat Ratio 5.7 RATIO (10-20); Calcium,Total 8.7 mg/dL (8.5-10.1); Chloride 99 mmol/L (98-107); Creatinine, Serum 6.45 mg/dL (0.70-1.30); EST Glomerular Filtration Rate 9 mL/min (>60); Est Glom Filt Rate - Afr Amer 11 mL/min (>60); Estimated Creatinine Clearance 9.87 ml/min; Globulin 3.4 g/dL (2.2-4.2); Glucose 125 mg/dL (74-106); Potassium 3.8 mmol/L (3.5-5.1); Protein, Total 6.4 g/dL (6.4-8.2); Sodium Level 141 mmol/L (136-145)
--- NOTE | 2022-04-19 16:45 | ED.RN ---
PT GIVES THIS RN PERMISSION TO SPEAK WITH DAUGHTER ON PHONE ABOUT ED VISIT. DAUGHTER INFORMED OF AWAITING TEST RESULTS. REPORTS SHE WILL CALL BACK AT A LATER TIME. DENIES ANY QUESTIONS.
--- NOTE | 2022-04-19 17:16 | PCM.HP.STD ---
HPI - General General Date of Admission: 04/19/22 Date of Service: 04/19/22 Chief Complaint: Multiple falls x 1 week, BL knee, L>R pain. HPI Narrative The patient is a 71 y/o M w/ PMHx: CAD s/p CABG x 3 and PCI, BPH, HTN, HLD, Diabetes mellitus type II, Hx CVA, Hx prior SDH with frequent fall history, Hx tobacco use, ESRD on HD MWF with most recent inpatient evaluation per Dr. Reese reportedly still making urine, Seizure disorder, Chronic anemia/AOCD who presents to the [facility] ED on 04/19/22 with history of generalized weakness and ongoing frequent falls with complaint of primarily L >R knee pain after his fall, currently living with his spouse with prior history adamantly refusing any concept of SNF or AL with need for all ADL help by his . In the ED patient initiated on efforts for placement to rehab. Patient upon evaluation reports bilateral although left greater than right pressley and knee pain following recent fall with abrasions to both regions and denuded skin with no active bleeding. Work-up in the ED included T97.9, heart rate 61, BP 140/91, respiratory rate 18, initially 99% on room air with most recent 94% on room air, CBC with WBC 6.5, hemoglobin 9.6, platelet 179 without marked shift, CMP with carbon oxide 35, BUN/creatinine 37/6.45, glucose 125, total bilirubin 0.90, AST/ALT 174/72 otherwise not marked appearing, chest x-ray with borderline to mild cardiomegaly without evidence of heart failure with evidence of prior sternal thoracotomy with no acute cardiopulmonary findings otherwise. [facility] Medical History (Updated 04/19/22 @ 16:[address] 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 Closed intraventricular hemorrhage COVID-19 virus detected (07/24/20) Debility Depression Diabetes mellitus, type 2 Diverticulosis End-stage renal disease on hemodialysis Essential (primary) hypertension Fatigue Frequent falls GERD (gastroesophageal reflux disease) History of CVA (cerebrovascular accident) (08/2017) History of non-ST elevation myocardial infarction (NSTEMI) (07/24/20) Hyperlipidemia Intracerebral hemorrhage Left ventricular hypertrophy Peripheral vascular occlusive disease Problem with dialysis access Right bundle branch block (RBBB) Subdural hematoma (07/22/19) Subdural hemorrhage Tobacco dependence in remission Home Medications Finasteride 5 mg PO DAILY PROSTATE 07/30/19 [History Last Taken 07/24/20] amlodipine 5 mg tablet 5 mg PO DAILY BP 05/26/20 [History Last Taken 04/19/22] aspirin 81 mg chewable tablet 81 mg PO DAILY@0800 HEALTH MAINTENANCE 05/26/20 [History Last Taken 04/19/22] atorvastatin 80 mg tablet 80 mg PO QHS CHOLESTEROL 05/26/20 [History Last Taken 04/18/22] levetiracetam 500 mg tablet 500 mg PO BID SEIZURES 05/26/20 [History Last Taken 07/24/20] carvedilol 12.5 mg tablet 12.5 mg PO BID HEART 05/27/20 [History Last Taken 07/24/20] fenofibrate micronized 67 mg capsule 67 mg PO DAILY CHOLESTEROL 06/08/20 [History Last Taken 07/24/20] calcium acetate(phosphat bind) 667 mg capsule 667 mg PO TIDCM 07/12/20 [History Last Taken 07/24/20] hydralazine 25 mg tablet 25 mg PO TID ANXIETY 07/24/20 [History Last Taken 07/24/20] pantoprazole 40 mg tablet,delayed release 40 mg PO DAILY GERD 07/24/20 [History Last Taken 07/24/20] tamsulosin 0.4 mg capsule 0.8 mg PO QHS PROSTATE 07/24/20 [History Last Taken 07/23/20] losartan 50 mg tablet 50 mg PO DAILY 12/13/20 [History Last Taken Unknown] melatonin 5 mg capsule 6 mg PO QHS 12/13/20 [History Last Taken Unknown] polyethylene glycol 3350 17 gram/dose oral powder (Miralax) 17 g PO DAILY 12/13/20 [History Last Taken Unknown] sennosides 8.6 mg capsule (senna) 8.6 mg PO DAILY 12/13/20 [History Last Taken Unknown] Allergy/AdvReac Type Severity Reaction Status Date / Time No Known Allergies Allergy Verified 04/19/22 15:34 Family History Brother Diabetes Mother Hypertension Daughter Diabetes Surgical History (Updated 04/19/22 @ 17:[address] Renuka Middleton MD) H/O coronary artery bypass surgery (11/10/12) History of angioplasty of peripheral vessel (05/16/19) History of coronary artery stent placement (03/28/09) S/P arteriovenous (AV) fistula creation S/p bilateral carpal tunnel release Social History (Updated 04/19/22 @ 15:[address] Nikko Gutierrez MD) household members: spouse Smoking Status: Former smoker alcohol intake: never substance use type: does not use caffeine: No what type of physical activity do you participate in: none frequency: does not exercise ROS ROS Narrative Admission Review of Systems: CONSTITUTIONAL: No weight loss, fever, chills, + weakness or fatigue. HEENT: Eyes: No visual loss, blurred vision, double vision or yellow sclerae. Ears, Nose, Throat: No hearing loss, sneezing, congestion, runny nose or sore throat. SKIN: + Very staged abrasions, mildly denuded skin on bilateral knees status post recent fall. CARDIOVASCULAR: No chest pain, chest pressure or chest discomfort, palpitations, edema, orthopnea, syncopal events. RESPIRATORY: No shortness of breath, cough or sputum, wheezing, hemoptysis. GASTROINTESTINAL: No anorexia, nausea, vomiting or diarrhea, abdominal pain, melena, BRBPR. GENITOURINARY: No dysuria, frequency, urgency or retention. NEUROLOGICAL: + Frequent falls, history of prior CVA, imbalance. No headache, dizziness, syncope, paralysis, ataxia, numbness or tingling in the extremities, focal weakness, change in bowel or bladder control, seizure. MUSCULOSKELETAL: + muscle, back pain, joint pain or stiffness. HEMATOLOGIC: + anemia, bleeding or bruising. LYMPHATICS: No enlarged nodes. No history of splenectomy. PSYCHIATRIC: No history of depression or anxiety. ENDOCRINOLOGIC: No reports of sweating, cold or heat intolerance. No polyuria or polydipsia. ALLERGIES: No history of asthma, hives, eczema or rhinitis. Vital Signs Vital Signs Vital Signs: 04/19/22 15:23 04/19/22 15:28 04/19/22 15:28 Temperature 97.9 F 97.9 F 97.9 F Temperature Source Oral Oral Oral Pulse Rate 61 61 61 Respiratory Rate 18 16 16 Respiratory Effort Respiratory Depth Respiratory Pattern Blood Pressure 140/91 H 140/91 H 140/91 H Blood Pressure Mean 107 107 107 Pulse Ox 99 97 98 Oxygen Delivery Method Room Air Room Air Room Air 04/19/22 15:30 Temperature 97.9 F Temperature Source Pulse Rate Respiratory Rate Respiratory Effort Normal Non-Labored Respiratory Depth Normal Respiratory Pattern Normal Blood Pressure Blood Pressure Mean Pulse Ox 94 Oxygen Delivery Method Room Air Weight Weight: 164 lb 7.437 oz Body Mass Index (BMI) 25.0 Physical Exam Narrative Physical Examination: General: Awake, alert, oriented to self, place and some recent events, fatigued, remains cooperative, seated upright in ED bed, complaining of bilateral knee and pressley discomfort. Skin: Normal color, normal turgor, no icterus, no cyanosis except for various staged ecchymoses to the extremities and evidence of abrasions to the knees and proximal shins bilaterally with no active bleeding as well as mild stasis skin changes. HEENT: AT/NC, EOMI, PERRLA, mildly dry MM, no carotid bruits or JVD noted. Lungs: Mild diminished, greater bases, appropriate effort no rales, ronchi or wheezing. Heart: Currently regular rate and rhythm; no gallop, rub audible. Abdomen: Soft, NTTP, ND, mildly hyperactive BS, no HSM. Extremities: No cyanosis, no clubbing, mild pedal and ankle not markedly pitting edema, stasis skin changes, see skin,+ thrill left upper extremity AVF. Neurological: Patient awake, alert, oriented as noted, cognitive function appears baseline intact; pupils equally reactive to light and accommodation, cranial nerves grossly normal, moving all 4 extremities although some difficulties secondary to bilateral knee pain he notes, no focal deficits, strength moderately to severely global decreased. Psychiatric: Affect appears fatigued, no acute evidence of depressive or anxiety feelings. Results Lab / Micro Data Result Diagrams: 04/19/22 15:50 04/19/22 15:50 Labs: Laboratory Results - last 24 hr 04/19/22 15:50: WBC 6.5, RBC 3.11 L, Hgb 9.6 L, Hct 29.1 L, MCV 93.6, MCH 30.9, MCHC 33.0, RDW Std Deviation 47.1 H, RDW Coeff of Arturo 14.1, Plt Count 179, MPV 9.7, Immature Gran % (Auto) 0.300, Neut % (Auto) 75.1 H, Lymph % (Auto) 13.5 L, [place] % (Auto) 7.9, Eos % (Auto) 2.9, Baso % (Auto) 0.3, Absolute Neuts (auto) 4.9, Absolute Lymphs (auto) 0.87, Nucleated RBC % 0 04/19/22 15:50: Sodium 141, Potassium 3.8, Chloride 99, Carbon Dioxide 35.0 H, Anion Gap 7, BUN 37 H, Creatinine 6.45 H, Estim Creat Clear Calc 9.87, Est GFR (MDRD) Af Amer 11 L, Est GFR (MDRD) Non-Af 9 L, BUN/Creatinine Ratio 5.7 L, Glucose 125 H, Calcium 8.7, Total Bilirubin 0.90, AST 174 H, ALT 72 H, Alkaline Phosphatase 71, Total Protein 6.4, Albumin 3.0 L, Globulin 3.4, Albumin/Globulin Ratio 0.9 Radiology Impression Chest X-Ray 04/19/22 16:00 IMPRESSION: 1. Borderline to mild cardiomegaly without heart failure. 2. No other evidence of active cardiopulmonary disease. No pneumonia, pneumonitis, or bronchitis. 3. Previous sternal thoracotomy. Electronically Signed: Wilfrid Valenzuela MD at 17:15 EDT , Assessment & Plan Assessment/Plan (1) Generalized weakness: PLAN: Plan The patient is a 71 y/o M w/ PMHx: CAD s/p CABG x 3 and PCI, BPH, HTN, HLD, Diabetes mellitus type II, Hx CVA, Hx prior SDH with frequent fall history, Hx tobacco use, ESRD on HD MWF with most recent inpatient evaluation per Dr. Reese reportedly still making urine, Seizure disorder, Chronic anemia/AOCD who presents to the [facility] ED on 04/19/22 with history of generalized weakness and ongoing frequent falls currently living with his spouse with prior history adamantly refusing any concept of SNF or AL with need for all ADL help by his . #1. Mechanical fall with adult failure to thrive, bilateral knee and proximal pressley pain: Given need for temporary transition to rehab versus TCU Will admit to medical surgical floor, maintain on fall precautions, request bilateral knee and tib-fib plain films to be cautious, will initiate PT/OT/case management consultation for discharge planning, as needed pain regimen if necessary. From patient's history he would certainly benefit from transition to permanent assisted living versus skilled setting however he is adamantly declined. #2. CAD: s/p CABG x 3, will continue patient home aspirin, statin, losartan, Coreg home regimen. HTN, HLD, Hx L Parietal CVA, will continue aspirin, beta-ginny, statin therapy. #3. Hx SDH/Intraventricular hemorrhage: Patient with history of frequent falls, previous unfortunately had SDH/intraventricular hemorrhage, continue patient home Keppra regimen and maintain on fall precautions. #4. PVD/PAD: Patient s/p BL LE angioplasties, will continue aspirin, statin, hypertensive regimen, from current list not on any diabetic medication, will need to review as family not present. #5. History CVA: Patient with history of prior left parietal CVA, will continue aspirin, statin, hypertensive regimen, clarifying diabetic regimen is not currently listed. #6.? Diabetes mellitus type II: From current list does not appear to be on any oral or insulin therapy for his diabetes, hemoglobin A1c requested, in the interim maintain on ADA diet, accu checks w/ ISS. #7.? AOCD/Chronic normocytic anemia: Admission hemoglobin 9.6, baseline appears primarily 9-10, repeat in AM. #8.? GERD: Not on regimen, prior was on PPI, will have PRN agents for dyspepsia. #9.? ESRD on HD: HD MWF regimen ([facility]) with HD on day of presentation therefore will defer immediate consultation as patient may be transitioned prior to need for dialysis on Friday. #10.? Hypertension: Continue home regimen including Norvasc, Coreg, losartan, hydralazine with hold parameters, PRN hydralazine. #11.? Hyperlipidemia: Continue home statin regimen. #12.? BPH: We will continue patient home Flomax and finasteride regimen. #13.? DVT prophylaxis: SCDs, heparin. Charges/Coding Visit Charges OBSV E&M: 13089 Initial observation care L2
--- NOTE | 2022-04-19 17:58 | CM.ED ---
Addendum entered by Leta Owens 04/19/22 20:03: Patient resides with his . He currently lives at [address] but will be moving 12 doors down to [address] to live in the in law suite at his daughter's residence. Patient said that they are waiting to replace the carpet at the in law suite and then they willl move. Leta KAISER Original Note: HEIDI Note Referral Source: MD Referral Reason: Home Health SW met with patient as this bond underwriter received referral for Home Health. SW discussed home health and stated that he is not going to any SNF. SW advised that this bond underwriter can make home health for PT/OT, RN and SW and patient agreed but then stated how am I supposed to get out of here.. I can't walk. SW explained that the options available to patient are SNF or HH. Patient voiced he had been at [facility] in the past and they were very kind. SW offered to call TCU/[facility] to see if they would take patient with dialyses and patient agreed. SW called ARIADNE Hebert who advised that TCU or [facility] will not take dialysis patient. SW updated patient. SW stated that the options of who does dialyses are limited and this bond underwriter is aware that [facility] does do dialyses. Patient said that he was there before and they were fine. Patient voiced he does not wish to go to [place]. Patient said that he would go to SNF for five days. SW explained that this bond underwriter does not know how long patient will be in the SNF as that is determined by how well he is doing and the insurance. Patient voiced he would go to [facility] for rehab. updated. Plan: [facility] per patient's request as he was there before. Leta KAISER
--- NOTE | 2022-04-19 18:00 | RAD_ITS ---
STUDY: RIGHT TIBIA AND FIBULA X-RAY SERIES OF 1811 HOURS ON 04/19/2022 REASON FOR EXAM: 70-year-old male with fall from a right distal leg. TECHNIQUE: 4 view(s) of the tibia and fibula were obtained. COMPARISON: None. FINDINGS: Mild demineralization. No fractures or dislocations. Intact right knee joint and intact ankle joint (which is balanced.) No osseous lytic, sclerotic, or mass lesions are evident. Vascular arterial calcification. Otherwise, normal soft tissues. RAD/Tibia & Fibula 2 Views IMPRESSION: 1. No fractures or dislocations adjacent joints. 2. No osseous lytic, sclerotic or mass lesions are evident. 3. Mild demineralization. 4. Vascular arterial calcification. Otherwise, normal soft tissues. Electronically Signed: Wilfrid Valenzuela MD at 20:03 EDT ,
--- NOTE | 2022-04-19 18:00 | RAD_ITS ---
STUDY: RIGHT KNEE X-RAY SERIES OF 1809 HOURS ON 04/19/2022 REASON FOR EXAM: 71-year-old with fall trauma onto knee with pain. TECHNIQUE: 2 view(s) of the knee. COMPARISON: None. FINDINGS: Mild demineralization. No fractures or dislocations. Moderate narrowing of the medial joint space compatible with cartilaginous or meniscal degenerative changes. Normal patella without fracture. Extensive arterial vascular calcification. RAD/Knee 1 or 2 Views IMPRESSION: 1. No fractures or dislocations. 2. Moderate narrowing of the medial joint space. 3. Normal patella without fractures. 4. Extensive arterial vascular calcification. Electronically Signed: Wilfrid Valenzuela MD at 19:57 EDT ,
--- NOTE | 2022-04-19 18:00 | RAD_ITS ---
STUDY: LEFT KNEE X-RAY SERIES OUT OF 1801 HOURS ON 04/19/2022 REASON FOR EXAM: 71-year-old male with fall and trauma to left knee with pain. TECHNIQUE: 2 view(s) of the knee. COMPARISON: None. FINDINGS: Mild demineralization. No fractures or dislocations. Large right lateral projecting osteophytes from the medial condyle of the distal femur. Balanced knee joint. Osteoarthritic changes of patella without fracture. Normal soft tissues. . RAD/Knee 1 or 2 Views IMPRESSION: 1. No fractures or dislocations of the knee joint and patella. 2. Balanced knee joint. 3. Osteoarthritic changes. 4. Normal soft tissues. Electronically Signed: Wilfrid Valenzuela MD at 19:59 EDT ,
--- NOTE | 2022-04-19 18:20 | RAD_ITS ---
STUDY: LEFT TIBIA AND FIBULA X-RAY SERIES OF 1802 HOURS ON 04/19/2022 REASON FOR EXAM: 71-year-old male with fall and trauma to distal left lower. TECHNIQUE: 4 view(s) of the tibia and fibula were obtained. COMPARISON: None. FINDINGS: No fractures or dislocations. Balanced knee and ankle joints. No osseous lytic, sclerotic or mass lesions are present. Mild demineralization. Normal soft tissues. RAD/Tibia & Fibula 2 Views IMPRESSION: 1. No fractures or dislocations. 2. Balanced left knee and ankle joints. 3. No osseous lytic, sclerotic or mass lesions. 4. Mild demineralization. 5. Normal soft tissues. Electronically Signed: Wilfrid Valenzuela MD at 20:05 EDT ,
[2022-04-19] MEDS: hydrALAZINE 25 MG Tablet PO (22:25)
[2022-04-19] MEDS: Carvedilol 12.5 MG Tablet PO (22:26)
[2022-04-19] MEDS: Tamsulosin HCl 0.4 MG Capsule 0.8 MG PO (22:26)
[2022-04-19] MEDS: levETIRAcetam 500 MG Tablet PO (22:27)
[2022-04-19] MEDS: MELATONIN 3 MG TABLET 6 MG PO (22:28)
[2022-04-19] MEDS: Atorvastatin Calcium 80 MG Tablet PO (22:28)
[2022-04-19] MEDS: Insulin Lispro 100 UNIT/ML INSULN.PEN SC (22:29)
[2022-04-19] MEDS: Menthol/Lanolin/Calamine/Znox 113 GM Tube 1 APPLIC TOPICAL (22:30)
[2022-04-19] MEDS: 0.9% Saline Lock 10 ML Syringe IV (22:32)
[2022-04-19 23:10] LABS: Bedside Glucose 162 mg/dL (74-106)
[2022-04-20] VITALS (8 sets, daily range): BP systolic 88–124; BP diastolic 46–54; PULSE 59–67; RESP 16–18; TEMP 36.3–37.2; O2SAT 92–100
[2022-04-20] MEDS: hydrALAZINE 25 MG Tablet PO ×2 (06:26→22:38)
[2022-04-20 07:05] LABS: Bedside Glucose 102 mg/dL (74-106)
--- NOTE | 2022-04-20 07:44 | PN.HOSP_ITS ---
Subjective Subjective Follow-up for fall, generalized weakness. Patient admitted for generalized weakness and fall on past Friday. He has bruise on the left knee which is scabbed. Objective Data Objective Data Vital Signs: Vital Signs Temp Pulse Resp BP Pulse Ox O2 Del Method 98.2 F 63 18 121/46 H 96 Room Air 04/20/22 06:23 04/20/22 06:26 04/20/22 06:23 04/20/22 06:26 04/20/22 06:23 04/20/22 06:23 Oxygen Delivery Method Room Air Weight: 157 lb 13.616 oz Body Mass Index (BMI) 24.0 Intake & Output: Intake and Output for Last 24 Hours 04/18/22 04/19/22 04/20/22 23:59 23:59 23:59 Intake Total 100 / 100 Output Total 0 / 0 Balance 100 / 100 Lab / Micro Data Result Diagrams: 04/20/22 07:08 04/20/22 07:08 Labs: Laboratory Results - last 24 hr 04/19/22 15:50: WBC 6.5, RBC 3.11 L, Hgb 9.6 L, Hct 29.1 L, MCV 93.6, MCH 30.9, MCHC 33.0, RDW Std Deviation 47.1 H, RDW Coeff of Arturo 14.1, Plt Count 179, MPV 9.7, Immature Gran % (Auto) 0.300, Neut % (Auto) 75.1 H, Lymph % (Auto) 13.5 L, Culberson % (Auto) 7.9, Eos % (Auto) 2.9, Baso % (Auto) 0.3, Absolute Neuts (auto) 4.9, Absolute Lymphs (auto) 0.87, Nucleated RBC % 0 04/19/22 15:50: Sodium 141, Potassium 3.8, Chloride 99, Carbon Dioxide 35.0 H, Anion Gap 7, BUN 37 H, Creatinine 6.45 H, Estim Creat Clear Calc 9.87, Est GFR (MDRD) Af Amer 11 L, Est GFR (MDRD) Non-Af 9 L, BUN/Creatinine Ratio 5.7 L, Glucose 125 H, Calcium 8.7, Total Bilirubin 0.90, AST 174 H, ALT 72 H, Alkaline Phosphatase 71, Total Protein 6.4, Albumin 3.0 L, Globulin 3.4, Albumin/Globulin Ratio 0.9 04/19/22 22:16: POC Glucose 162 H 04/20/22 06:30: POC Glucose 102 Radiography Diagnostic Testing: Radiology Impression Chest X-Ray 04/19/22 16:00 IMPRESSION: 1. Borderline to mild cardiomegaly without heart failure. 2. No other evidence of active cardiopulmonary disease. No pneumonia, pneumonitis, or bronchitis. 3. Previous sternal thoracotomy. Electronically Signed: Wilfrid Valenzuela MD at 17:15 EDT Reading Location ID and State: [facility] / [place] Tel , Service support , Knee X-Ray 04/19/22 18:00 IMPRESSION: 1. No fractures or dislocations of the knee joint and patella. 2. Balanced knee joint. 3. Osteoarthritic changes. 4. Normal soft tissues. Electronically Signed: Wilfrid Valenzuela MD at 19:59 EDT Reading Location ID and State: [place] / [place] Tel , Service support , Knee X-Ray 04/19/22 18:00 IMPRESSION: 1. No fractures or dislocations. 2. Moderate narrowing of the medial joint space. 3. Normal patella without fractures. 4. Extensive arterial vascular calcification. Electronically Signed: Wilfrid Valenzuela MD at 19:57 EDT Reading Location ID and State: [facility] / [place] Tel , Service support , Tibia/Fibula X-Ray 04/19/22 18:00 IMPRESSION: 1. No fractures or dislocations adjacent joints. 2. No osseous lytic, sclerotic or mass lesions are evident. 3. Mild demineralization. 4. Vascular arterial calcification. Otherwise, normal soft tissues. Electronically Signed: Wilfrid Valenzuela MD at 20:03 EDT Reading Location ID and State: [facility] / [place] Tel , Service support , Tibia/Fibula X-Ray 04/19/22 18:20 IMPRESSION: 1. No fractures or dislocations. 2. Balanced left knee and ankle joints. 3. No osseous lytic, sclerotic or mass lesions. 4. Mild demineralization. 5. Normal soft tissues. Electronically Signed: Wilfrid Valenzuela MD at 20:05 EDT , Physical Exam Narrative Seen and examined. Patient history had 1 fall, that was on past 04/16/2022. He denies dizziness, spinning/vertigo, nausea, vomiting, blurry vision loss of field of vision or headache. He said he is weak on left side after stroke therefore he fell down and bruised his knees. Physical exam: General: Alert, Oriented x3, Cooperative HEENT: Atraumatic, PERRLA, EOMI, Normocephalic Oral: No Gingival or Mucosal Lesions/ Ulcerations Neck: Supple, No JVD, Negative Carotid Bruits Lungs: Air entry diminished in bilateral lung bases. No crepitation/rhonchi Cardiovascular: Regular rate, Regular Rhythm, Normal S1, Normal S2, ESM, 4/6 on right second ICS and LLSB. Abdomen: Bowel Sounds Present, Soft, Non Tender, Non-Distended : No renal angle tenderness. No suprapubic tenderness. Extremities: No edema, Capillary Refill Less than 3 Seconds Skin: Bruise on the left kidney, scabbed. Musculoskeletal: Mild superficial tenderness to left knee from bruise. Muscle strength 4/5 on LUE and LLE, 5/5 on RUE and RLE Neurological: DTR 2+/4. Facial droop left-sided chronic Psych/Mental Status: Normal Affect, Appropriate. Assessment & Plan Assessment/Plan (1) Generalized weakness: PLAN: Plan The patient is a 71 y/o M was admitted with generalized weakness and frequent falls, the last 1 on 04/16/2022. #1. Mechanical fall with adult failure to thrive, bilateral knee and proximal pressley pain: Patient scab abrasion on his left knee. No head trauma. Denies headache, diplopia, blurry vision or loss of vision. Denies new tinnitus or decreased hearing. No trouble speech or swallowing. Nonproductive cough. No UTI symptoms. PT and OT ordered. Pain control. Patient had bilateral knees x- ray and tibia-fibula x-ray did not show any acute fracture or dislocation. Chest x-ray individually reviewed does not show acute finding. PT OT and transplant case manager consult. Patient does not want to go to SNF #2. CAD: s/p CABG x 3, continue patient home aspirin, statin, losartan, Coreg home regimen. HTN, HLD, Hx L Parietal CVA, will continue aspirin, beta-ginny, statin therapy. #3. Hx SDH/Intraventricular hemorrhage: Patient with history of frequent falls, previous unfortunately had SDH/intraventricular hemorrhage, continue patient home Keppra regimen and maintain on fall precautions. #4. PVD/PAD: Patient s/p BL LE angioplasties, continue aspirin, statin, hypertensive regimen, from current list not on any diabetic medication. Patient has who takes care off for #5. History CVA: Patient with history of prior left parietal CVA, will continue aspirin, statin, hypertensive regimen, clarifying diabetic regimen is not currently listed. #6.? Diabetes mellitus type II: Patient on oral or insulin therapy for his diabetes. Glucose is between 100 to 164 mg/dL continue Accu-Cheks dizziness, erythema LOC sliding scale #7.? AOCD/Chronic normocytic anemia: Admission hemoglobin 9.6, baseline appears primarily 9-10, repeat hemoglobin is similar #8.? GERD: On PPI #9.? ESRD on HD: HD MWF regimen ([facility]) with HD on day of presentation therefore will defer immediate consultation as patient may be tra nsitioned prior to need for dialysis on Friday. #10.? Hypertension: Continue home regimen including Norvasc, Coreg, losartan, hydralazine with hold parameters, PRN hydralazine. #11.? Hyperlipidemia: Continue home statin regimen. #12.? BPH: We will continue patient home Flomax and finasteride regimen. #13.? DVT prophylaxis: SCDs, heparin. The patient last admission was in July 2020 for COVID-19 infection Charges/Coding Visit Charges OBSV E&M: 59326 Initial observation care L2
[2022-04-20 08:03] LABS: Absolute Lymphocyte Count 1.29 X10^3/uL (0.83-4.51); Absolute Neutrophil Count 4.1 X10^3/uL (2.0-7.7); Basophil# 0.02 X10^3/uL; Basophil% 0.3 % (0-1); Eosinophil# 0.15 X10^3/uL; Eosinophils% 2.4 % (0-5); Hematocrit 27.3 % (40-54); Hemoglobin 9.1 g/dL (13.0-16.5); Lymphocyte # 1.29 X10^3/ul (0.83-4.51); Lymphocyte % 20.6 % (19-41); Mean Corp Hgb Conc 33.3 g/dL (32-36); Mean Corpuscular Hgb 31.9 pg (27.0-32.0); Mean Corpuscular Volume 95.8 fL (80-94); Mean Platelet Vol. 10.4 fl (6.2-12.0); Monocyte# 0.69 X10^3/uL; NRBC Flagged by Analyzer 0 % (0-5); Neutrophil # 4.08 X10^3/uL (2.7-7.7); Neutrophil % 65.2 % (47-70); Platelet Count 156 K/mm3 (150-450); RBC Distribution Width CV 14.3 % (11.6-14.6); Red Blood Count 2.85 M/mm3 (4.6-6.2); White Blood Count 6.3 K/mm3 (4.4-11.0)
[2022-04-20] MEDS: Aspirin 81 MG TAB.CHEW PO (08:31)
[2022-04-20] MEDS: Calcium Acetate 667 MG Capsule PO ×3 (08:31→18:11)
[2022-04-20] MEDS: Acetaminophen 325 MG Tablet 650 MG PO (08:34)
[2022-04-20 08:58] LABS: ALB/GLOB Ratio 0.8 RATIO (0.9-2.4); AST(SGOT) 152 U/L (15-37); Alanine Aminotransfer ALT/SGPT 66 U/L (16-61); Albumin, Serum 2.6 g/dL (3.2-5.0); Alkaline Phosphatase 56 U/L (45-117); Anion Gap 8 (5-15); BUN 52 mg/dL (7-18); BUN/Creat Ratio 6.4 RATIO (10-20); Calcium,Total 8.1 mg/dL (8.5-10.1); Chloride 102 mmol/L (98-107); Creatinine, Serum 8.13 mg/dL (0.70-1.30); EST Glomerular Filtration Rate 7 mL/min (>60); Est Glom Filt Rate - Afr Amer 8 mL/min (>60); Estimated Creatinine Clearance 7.83 ml/min; Globulin 3.1 g/dL (2.2-4.2); Glucose 109 mg/dL (74-106); Potassium 4.2 mmol/L (3.5-5.1); Protein, Total 5.7 g/dL (6.4-8.2); Sodium Level 141 mmol/L (136-145)
[2022-04-20] MEDS: Menthol/Lanolin/Calamine/Znox 113 GM Tube 1 APPLIC TOPICAL ×2 (09:41→23:06)
[2022-04-20] MEDS: levETIRAcetam 500 MG Tablet PO ×2 (09:42→22:38)
[2022-04-20] MEDS: Senna Tablet 1 TABLET PO (09:42)
[2022-04-20] MEDS: Losartan Potassium 50 MG Tablet PO (09:43)
[2022-04-20] MEDS: Fenofibrate 48 MG Tablet PO (09:43)
[2022-04-20] MEDS: Finasteride 5 MG Tablet PO (09:43)
[2022-04-20] MEDS: Pantoprazole Sodium 40 MG Tablet PO (09:43)
[2022-04-20] MEDS: Heparin Injection (Vial) 5,000 UNIT/ML VIAL 5000 UNIT SC ×2 (09:44→22:39)
[2022-04-20] MEDS: Insulin Lispro 100 UNIT/ML INSULN.PEN SC (11:39)
[2022-04-20 12:05] LABS: Bedside Glucose 164 mg/dL (74-106)
--- NOTE | 2022-04-20 15:15 | CASEMGMT ---
Referral sent to [facility] via [facility]. Dot Harkins RN CM
--- NOTE | 2022-04-20 16:00 | CASEMGMT ---
CASSANDRA CASTILLO NOTE: Intro role of CM to patient and BLACKMON form explained re: Observation status for treatment of frequent falls and failure to thrive. Explained hospitalization will be paid per his insurance policy for Outpatient billing and condition will continue to be evaluated for Inpt necessity. Also let pt know that [facility] sends paper in the billing packet with their phone number if questions arise. Pt verbalizes understanding and does not have further questions. Form signed, copy made and placed in chart, and original given to pt. Frank CHAUHAN RN CM
--- NOTE | 2022-04-20 16:31 | CM.ED ---
Addendum entered by Leta Owens 04/20/22 16:37: SW called patient's daughter and left message for his daughter to call this copy writer. Original Note: SW was advised by the RN ANNA that patient told the MD he is not going to SNF. Patient said that he is not going to a [facility] when this copy writer provided him with the list of SNF's. Patient said that he would like to go to TCU and when advised they do not take dialysis patient he said but what if my son takes me to dialysis and my daughter brings me back. SW is unsure of this answer but will email TCU staff about it. HEIDI advised that we had talked last night and patient was open to referral to [facility] and patient said they weren't bad. SW said that they are the only place that takes dialysis patients. Patient asked about [facility] and this copy writer advised that [facility] is the only place that takes dialysis. Patient apologized for snapping at this copy writer. SW advised patient had walked a short distance and needed max assist and if he went home and his would help, as patient reports she would, he could fall down and she could be injured also. Plan: [facility] Leta KAISER
[2022-04-20 17:15] LABS: Bedside Glucose 136 mg/dL (74-106)
[2022-04-20] MEDS: Tamsulosin HCl 0.4 MG Capsule 0.8 MG PO (22:38)
[2022-04-20] MEDS: Atorvastatin Calcium 80 MG Tablet PO (22:38)
[2022-04-20] MEDS: Carvedilol 12.5 MG Tablet PO (22:39)
[2022-04-20] MEDS: MELATONIN 3 MG TABLET 6 MG PO (22:43)
[2022-04-20 23:11] LABS: Bedside Glucose 113 mg/dL (74-106)
[2022-04-21] VITALS (7 sets, daily range): BP systolic 122–138; BP diastolic 48–64; PULSE 52–67; RESP 16–18; TEMP 36.4–37.1; O2SAT 95–97
[2022-04-21] MEDS: hydrALAZINE 25 MG Tablet PO ×2 (06:36→14:53)
[2022-04-21 07:00] LABS: Bedside Glucose 79 mg/dL (74-106)
[2022-04-21] MEDS: Calcium Acetate 667 MG Capsule PO ×3 (08:22→18:01)
[2022-04-21] MEDS: Aspirin 81 MG TAB.CHEW PO (08:22)
[2022-04-21] MEDS: Menthol/Lanolin/Calamine/Znox 113 GM Tube 1 APPLIC TOPICAL ×2 (10:23→21:43)
[2022-04-21] MEDS: Pantoprazole Sodium 40 MG Tablet PO (10:24)
[2022-04-21] MEDS: Finasteride 5 MG Tablet PO (10:24)
[2022-04-21] MEDS: Fenofibrate 48 MG Tablet PO (10:25)
[2022-04-21] MEDS: Losartan Potassium 50 MG Tablet PO (10:25)
[2022-04-21] MEDS: Carvedilol 12.5 MG Tablet PO (10:26)
[2022-04-21] MEDS: levETIRAcetam 500 MG Tablet PO ×2 (10:26→21:46)
[2022-04-21] MEDS: Heparin Injection (Vial) 5,000 UNIT/ML VIAL 5000 UNIT SC ×2 (10:26→21:57)
[2022-04-21] MEDS: amLODIPine 5 MG Tablet PO (10:27)
--- NOTE | 2022-04-21 10:30 | PN.HOSP_ITS ---
Subjective Subjective Follow-up for generalized weakness, debility and fall. History of stroke. Patient agreed for going to rehab for short time. Objective Data Objective Data Vital Signs: Vital Signs Temp Pulse Resp BP Pulse Ox O2 Del Method 97.6 F L 61 16 122/57 H 95 Room Air 04/21/22 08:26 04/21/22 08:26 04/21/22 08:26 04/21/22 08:26 04/21/22 08:26 04/21/22 08:29 Oxygen Delivery Method Room Air Weight: 157 lb 13.616 oz Body Mass Index (BMI) 24.0 Intake & Output: Intake and Output for Last 24 Hours 04/19/22 04/20/22 04/21/22 23:59 23:59 23:59 Intake Total 1000 / 1300 300 / 300 Output Total 0 / 0 0 / 0 Balance 1000 / 1300 300 / 300 Lab / Micro Data Result Diagrams: 04/20/22 07:08 04/20/22 07:08 Labs: Laboratory Results - last 24 hr 04/20/22 11:35: POC Glucose 164 H 04/20/22 16:30: POC Glucose 136 H 04/20/22 22:29: POC Glucose 113 H 04/21/22 06:37: POC Glucose 79 Physical Exam Narrative Seen and examined. Patient history had 1 fall, that was on past 04/16/2022. On PT and OT. Physical exam: General: Alert, Oriented x3, Cooperative HEENT: Atraumatic, PERRLA, EOMI, Normocephalic Oral: No Gingival or Mucosal Lesions/ Ulcerations Neck: Supple, No JVD, Negative Carotid Bruits Lungs: Air entry diminished in bilateral lung bases. No crepitation/rhonchi Cardiovascular: Regular rate, Regular Rhythm, Normal S1, Normal S2, ESM, 4/6 on right second ICS and LLSB. Abdomen: Bowel Sounds Present, Soft, Non Tender, Non-Distended : No renal angle tenderness. No suprapubic tenderness. Extremities: No edema, Capillary Refill Less than 3 Seconds Skin: Bruise on the left kidney, scabbed. Healing well Musculoskeletal: Mild superficial tenderness to left knee from bruise. Muscle strength 4/5 on LUE and LLE, 5/5 on RUE and RLE Neurological: DTR 2+/4. Facial droop left-sided chronic Psych/Mental Status: Normal Affect, Appropriate. Assessment & Plan Assessment/Plan (1) Generalized weakness: PLAN: Plan The patient is a 71 y/o M was admitted with generalized weakness and frequent falls, the last 1 on 04/16/2022. #1. Mechanical fall with adult failure to thrive, bilateral knee and proximal pressley pain: Patient scab abrasion on his left knee. No head trauma. Denies headache, diplopia, blurry vision or loss of vision. Denies new tinnitus or decreased hearing. No trouble speech or swallowing. Nonproductive cough. No UTI symptoms. PT and OT ordered. Pain control. Patient had bilateral knees x- ray and tibia-fibula x-ray did not show any acute fracture or dislocation. Chest x-ray individually reviewed does not show acute finding. PT OT and high risk case manager consult. 04/20: Patient agreeable for going to SNF for 2 to 3 weeks. He was in acute rehab after the stroke. #2. CAD: s/p CABG x 3, continue patient home aspirin, statin, losartan, Coreg home regimen. HTN, HLD, Hx L Parietal CVA, continue aspirin, beta-ginny, statin therapy. 04/21 heart rate and blood pressure is controlled. No chest pain or shortness of breath #3. Hx SDH/Intraventricular hemorrhage: Patient with history of frequent falls, previous unfortunately had SDH/intraventricular hemorrhage, continue patient h ome Keppra regimen and maintain on fall precautions. #4. PVD/PAD: Patient s/p BL LE angioplasties, continue aspirin, statin, hypertensive regimen, from current list not on any diabetic medication. Patient has who takes care off for #5. History CVA: Patient with history of prior left parietal CVA, will continue aspirin, statin, hypertensive regimen, clarifying diabetic regimen is not curr ently listed. #6.? Diabetes mellitus type II: Patient on oral or insulin therapy for his diabetes. Glucose is between 100 to 164 mg/dL continue Accu-Cheks dizziness, erythema LOC sliding scale #7.? AOCD/Chronic normocytic anemia: Admission hemoglobin 9.6, baseline appears primarily 9-10, repeat hemoglobin is similar #8.? GERD: On PPI #9.? ESRD on HD: HD MWF regimen ([facility]) with HD on day of presentation therefore will defer immediate consultation as patient may be transitioned prior to need for dialysis on Friday. #10.? Hypertension: Continue home regimen including Norvasc, Coreg, losartan, hydralazine with hold parameters, PRN hydralazine. #11.? Hyperlipidemia: Continue home statin regimen. #12.? BPH: We will continue patient home Flomax and finasteride regimen. #13.? DVT prophylaxis: SCDs, heparin. The patient last admission was in July 2020 for COVID-19 infection Charges/Coding Visit Charges Inpatient E&M: 71335 Subs Hosp L2
[2022-04-21 12:00] LABS: Bedside Glucose 108 mg/dL (74-106)
[2022-04-21] MEDS: Acetaminophen 325 MG Tablet 650 MG PO ×2 (14:52→22:01)
[2022-04-21 16:41] LABS: Bedside Glucose 109 mg/dL (74-106)
[2022-04-21] MEDS: MELATONIN 3 MG TABLET 6 MG PO (21:44)
[2022-04-21] MEDS: Tamsulosin HCl 0.4 MG Capsule 0.8 MG PO (21:44)
[2022-04-21] MEDS: Atorvastatin Calcium 80 MG Tablet PO (21:45)
[2022-04-21 22:20] LABS: Bedside Glucose 153 mg/dL (74-106)
[2022-04-22] VITALS (7 sets, daily range): BP systolic 117–142; BP diastolic 42–66; PULSE 55–65; RESP 16–20; TEMP 36.4–36.8; O2SAT 95–99
[2022-04-22] MEDS: hydrALAZINE 25 MG Tablet PO ×3 (06:27→23:00)
[2022-04-22 06:51] LABS: Bedside Glucose 109 mg/dL (74-106)
[2022-04-22] MEDS: Finasteride 5 MG Tablet PO (09:18)
[2022-04-22] MEDS: Heparin Injection (Vial) 5,000 UNIT/ML VIAL 5000 UNIT SC ×2 (09:18→23:04)
[2022-04-22] MEDS: Fenofibrate 48 MG Tablet PO (09:18)
[2022-04-22] MEDS: levETIRAcetam 500 MG Tablet PO ×2 (09:18→23:01)
[2022-04-22] MEDS: Pantoprazole Sodium 40 MG Tablet PO (09:18)
[2022-04-22] MEDS: Aspirin 81 MG TAB.CHEW PO (09:18)
[2022-04-22] MEDS: Calcium Acetate 667 MG Capsule PO ×3 (09:18→18:01)
[2022-04-22] MEDS: Losartan Potassium 50 MG Tablet PO (09:18)
[2022-04-22] MEDS: amLODIPine 5 MG Tablet PO (09:18)
[2022-04-22] MEDS: Carvedilol 12.5 MG Tablet PO ×2 (09:18→23:00)
[2022-04-22] MEDS: Menthol/Lanolin/Calamine/Znox 113 GM Tube 1 APPLIC TOPICAL ×2 (09:19→23:03)
--- NOTE | 2022-04-22 09:44 | PCM.PN.HOSP ---
Subjective Subjective Follow-up on debility: Patient was seen and examined. Complains of pain in his left pelvic region. No acute events overnight. [facility] facility. Objective Data Objective Data Vital Signs: Vital Signs Temp Pulse Resp BP Pulse Ox O2 Del Method 98.3 F 62 16 142/52 H 95 Room Air 04/22/22 06:00 04/22/22 06:27 04/22/22 06:00 04/22/22 06:00 04/22/22 06:00 04/22/22 06:00 Oxygen Delivery Method Room Air Weight: 73.1 kg Body Mass Index (BMI) 24.0 Intake & Output: Intake and Output for Last 24 Hours 04/20/22 04/21/22 04/22/22 23:59 23:59 23:59 Intake Total 1000 / 1300 1150 / 1150 Output Total 0 / 0 0 / 0 0 / 0 Balance 1000 / 1300 1150 / 1150 0 / 0 Lab / Micro Data Result Diagrams: 04/20/22 07:08 04/20/22 07:08 Labs: Laboratory Results - last 24 hr 04/21/22 11:37: POC Glucose 108 H 04/21/22 16:19: POC Glucose 109 H 04/21/22 21:50: POC Glucose 153 H 04/22/22 06:23: POC Glucose 109 H Physical Exam Narrative Physical exam: General: Alert, Oriented x3, Cooperative, appears frail HEENT: Atraumatic Oral: Moist Mucosa Neck: Supple Lungs: Clear to auscultation Cardiovascular: HS I+II, regular, no murmurs Abdomen: Bowel Sounds Present, Soft, Non Tender Extremities: No bilateral pedal edema, tenderness on palpation left pelvic region Skin: No rashes, No breakdown Neurological: Grossly intact Psych/Mental Status: Appropriate Assessment & Plan Assessment/Plan (1) Generalized weakness: PLAN: Plan 1. Acute on chronic debility, status post mechanical fall Admitting x-ray of the knees as well as severe and fibula are unremarkable Patient complains of left pelvic pain; will get x-rays of the pelvic and hip Tylenol 1000 p.o. 3 times daily, PT/OT to evaluate and treat 2. CAD status post CABG/PAD status post bilateral lower extremity angioplasties/hyperlipidemia/hypertension, appears to be stable Continue aspirin, statin, losartan, Coreg, fenofibrate and amlodipine 3. History of left parietal CVA/S DH/intraventricular hemorrhage Continue on Keppra 4. Type II DM, blood sugars are controlled, not on any diabetic medication We will continue to monitor Sliding scale blood glucose checks 5. ESRD on HD, on hemodialysis, nephrology consulted Continue on Phoslo 6. Anemia of chronic kidney disease, Hb appears to be stable Labs in am 7. GERD, on PPI 8. DVT prophylaxis?heparin subcu Charges/Coding Visit Charges Inpatient E&M: 69601 Subs Hosp L2
--- NOTE | 2022-04-22 10:11 | TREXTCAR_ITS ---
Diet Diet Order/Speech Therapy: 04/19/22 19:38 Diet: Renal - General Food consistency:: Regular Liquid Consistency:: Regular/Thin Dietary Modifications:: Consistent Carbohydrate Type of Dietary Supplement:: Ensure Plus High Protein Is pt able to select menu?: Yes Diet Comments: 4oz chocolate w/ meals Routine Orders/Code Status Suppository Type: Dulcolax 10mg Suppository Frequency: Daily PRN Keep PO Greater than or Equal to (%): 94 Routine Lab Work: CBC (within 3 days) and - (CMP within 3 days) Code Status: Full Code Wound(s) LEFT UPPER BACK/SCAPULA: Wound Type: POSSIBLE BLISTER/BURN COCCYX: Wound Type: Pressure Injury Therapies Weight Bearing: Weight bearing as tolerated Physical Therapy: Eval and Treat Occupational Therapy: Eval and Treat Problem/Diagnosis (1) Generalized weakness: Status: Acute Code(s): R53.1 - Weakness Allergies/Procedures Done in Hospital Allergies No Known Allergies Allergy (Verified 04/19/22 15:34) Procedures: None Type of Care/Length of Stay Estimated LOS: Convalescent Care Less Than 30 days Type of Care Needed: Skilled Rehab Potential: Good Prognosis: Good Additional Orders/Day of Discharge Day of Discharge: 04/23/22 Dietary and Speech Recommendations Dietitian Recommendations/Changes: renal-general diet, consistent CHO; ensure plus high protein 120mL TID w/ meals Discharge Plan Admission Admit Date/Time: 04/19/22 17:24 Primary Reason for Your Visit: Debility Attending Provider: Sienna Ro Primary Care Provider: Care Physician,No Primary Consulting Providers: Renuka Middleton ; Uche Jones ; Asim Timmons Instructions Patient Instructions: ED Fall with Uncertain Cause, ED Weakness (Uncertain Cause) Discharge Orders/Prescriptions Prescriptions: No Action Finasteride 5 MG tablet 5 mg PO DAILY fenofibrate micronized 67 MG capsule 67 mg PO DAILY atorvastatin 80 MG tablet 80 mg PO QHS amlodipine 5 MG tablet 5 mg PO DAILY aspirin 81 MG tablet,chewable 81 mg PO DAILY@0800 levetiracetam 500 MG tablet 500 mg PO BID carvedilol 12.5 MG tablet 12.5 mg PO BID calcium acetate(phosphat bind) 667 MG capsule 667 mg PO TIDCM hydralazine 25 MG tablet 25 mg PO TID tamsulosin 0.4 MG capsule 0.8 mg PO QHS pantoprazole 40 MG tablet 40 mg PO DAILY losartan 50 mg tablet 50 mg PO DAILY melatonin 5 mg capsule 6 mg PO QHS polyethylene glycol 3350 [Miralax] 17 gram/dose powder 17 g PO DAILY senna 8.6 mg capsule 8.6 mg PO DAILY Referrals / Follow Up: Care Physician,No Primary [Primary Care Provider] - In 1 Week Doctor,Your [Non-Staff] - 3-5 Days Disposition Disposition (needs filled in before D/C Order can be placed): [facility] Facility
--- NOTE | 2022-04-22 10:24 | PCM.CONS.R ---
Assessment & Plan Assessment/Plan (1) ESRD (end stage renal disease) on dialysis: PLAN: Plan Patient has longstanding ESRD with well-functioning fistula, his last dialysis was Friday. While he does not need emergency dialysis today, we better plan to dialyze him soon and attempt to put him on a regular schedule. His dialysis time is 3 hours, will use 3K bath, fluid removal per Crit-Line profile B. HPI Consult Data Date of Consult: 04/22/22 HPI Narrative Reason for Consultation: I have been consulted to assist with management of end-stage kidney disease HPI Narrative: MODESTO DOMINGUEZ, is a 71 M who presents 3 days ago with a history of falls, generalized weakness, some anemia. He also happened to have end-stage kidney disease. His last dialysis was on Friday. He states that he has been on dialysis for the last year or so, he has left upper arm fistula. He goes to [facility] up here in [place]. Overall report poor appetite, failure to thrive. Denies any respiratory symptoms. I have reviewed his labs, he has normokalemia, no significant acidosis. [facility] Medical History (Updated 04/22/22 @ 10:[address] 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 Closed intraventricular hemorrhage COVID-19 virus detected (07/24/20) Debility Depression Diabetes mellitus, type 2 Diverticulosis End-stage renal disease on hemodialysis Essential (primary) hypertension Fatigue Frequent falls GERD (gastroesophageal reflux disease) History of CVA (cerebrovascular accident) (08/2017) History of non-ST elevation myocardial infarction (NSTEMI) (07/24/20) Hyperlipidemia Intracerebral hemorrhage Left ventricular hypertrophy Peripheral vascular occlusive disease Problem with dialysis access Right bundle branch block (RBBB) Subdural hematoma (07/22/19) Subdural hemorrhage Tobacco dependence in remission Home Medications Finasteride 5 mg PO DAILY PROSTATE 07/30/19 [History Last Taken 07/24/20] amlodipine 5 mg tablet 5 mg PO DAILY BP 05/26/20 [History Last Taken 04/19/22] aspirin 81 mg chewable tablet 81 mg PO DAILY@0800 HEALTH MAINTENANCE 05/26/20 [History Last Taken 04/19/22] atorvastatin 80 mg tablet 80 mg PO QHS CHOLESTEROL 05/26/20 [History Last Taken 04/18/22] levetiracetam 500 mg tablet 500 mg PO BID SEIZURES 05/26/20 [History Last Taken 07/24/20] carvedilol 12.5 mg tablet 12.5 mg PO BID HEART 05/27/20 [History Last Taken 07/24/20] fenofibrate micronized 67 mg capsule 67 mg PO DAILY CHOLESTEROL 06/08/20 [History Last Taken 07/24/20] calcium acetate(phosphat bind) 667 mg capsule 667 mg PO TIDCM 07/12/20 [History Last Taken 07/24/20] hydralazine 25 mg tablet 25 mg PO TID ANXIETY 07/24/20 [History Last Taken 07/24/20] pantoprazole 40 mg tablet,delayed release 40 mg PO DAILY GERD 07/24/20 [History Last Taken 07/24/20] tamsulosin 0.4 mg capsule 0.8 mg PO QHS PROSTATE 07/24/20 [History Last Taken 07/23/20] losartan 50 mg tablet 50 mg PO DAILY 12/13/20 [History Last Taken Unknown] melatonin 5 mg capsule 6 mg PO QHS 12/13/20 [History Last Taken Unknown] polyethylene glycol 3350 17 gram/dose oral powder (Miralax) 17 g PO DAILY 12/13/20 [History Last Taken Unknown] sennosides 8.6 mg capsule (senna) 8.6 mg PO DAILY 12/13/20 [History Last Taken Unknown] Allergy/AdvReac Type Severity Reaction Status Date / Time No Known Allergies Allergy Verified 04/19/22 15:34 Family History Brother Diabetes Mother Hypertension Daughter Diabetes Surgical History (Updated 04/19/22 @ 17:[address] Renuka Middleton MD) H/O coronary artery bypass surgery (11/10/12) History of angioplasty of peripheral vessel (05/16/19) History of coronary artery stent placement (03/28/09) S/P arteriovenous (AV) fistula creation S/p bilateral carpal tunnel release Social History (Updated 04/19/22 @ 15:[address] Nikko Gutierrez MD) household members: spouse Smoking Status: Former smoker alcohol intake: never substance use type: does not use caffeine: No what type of physical activity do you participate in: none frequency: does not exercise ROS Constitutional Constitutional: Reports systems reviewed and no addt'l complaints, except as documented, as per HPI, anorexia, fatigue, frequent falls, malaise and poor appetite Cardiovascular Cardiovascular: Reports systems reviewed and no addt'l complaints, except as documented Respiratory/Chest Respiratory/Chest: Reports systems reviewed and no addt'l complaints, except as documented Gastrointestinal Gastrointestinal: Reports systems reviewed and no addt'l complaints, except as documented Genitourinary Genitourinary: Reports systems reviewed and no addt'l complaints, except as documented Musculoskeletal Musculoskeletal: Reports systems reviewed and no addt'l complaints, except as documented Integumentary Integumentary: Reports systems reviewed and no addt'l complaints, except as documented Neurologic Neurologic: Reports frequent falls Psychiatric Psychiatric: Reports systems reviewed and no addt'l complaints, except as documented Hematologic/Lymphatic Hematologic/Lymphatic: Reports systems reviewed and no addt'l complaints, except as documented Allergic/Immunologic Allergic/Immunologic: Reports systems reviewed and no addt'l complaints, except as documented Physical Exam Const alert, no apparent distress and average body habitus General Appearance: cooperative, comfortable, well kempt and well developed Orientation / Consciousness: awake, oriented to person and oriented to place Exam Limitations: no limitations HEENT normocephalic and moist oral mucous membranes Head and Scalp: normal to inspection Resp normal respiratory effort, normal air movement, no use of accessory muscles and clear to auscultation bilaterally Effort and Inspection: able to speak in complete sentences Auscultation: clear to auscultation bilaterally Cardio no gallops Cardio Narrative: No rub GI soft to palpation, non-tender and non-distended Neuro oriented x3 Psych Appearance: grossly normal, appropriate and well kempt Lab / Micro Data Attestation: I reviewed the patient's lab results. Result Diagrams: 04/20/22 07:08 04/20/22 07:08 Labs: Laboratory Results - last 24 hr 04/21/22 11:37: POC Glucose 108 H 04/21/22 16:19: POC Glucose 109 H 04/21/22 21:50: POC Glucose 153 H 04/22/22 06:23: POC Glucose 109 H
--- NOTE | 2022-04-22 11:00 | RAD_ITS ---
STUDY: X-RAY - PELVIS AND LEFT HIP REASON FOR EXAM: Male, 71 years old. Frequent falls. Left-sided pelvic pain. TECHNIQUE: 3 views of the pelvis and hip. COMPARISON: None. FINDINGS: There is a non-specific bowel gas pattern. There are multiple calcified phleboliths. There are atherosclerotic vascular calcifications. Multiple tiny lucencies are seen in the proximal femurs bilaterally as well as in the pelvic bones. An infiltrative process such as a multiple myeloma should be ruled out. There is narrowing with cortical sclerosis and osteophyte formation of the sacroiliac joint consistent with degenerative osteoarthritic changes. There is a 7.7 mm sclerotic focus in the lateral aspect of the left iliac bone. This most likely represents a small bone. Normal bilateral superior and inferior pubic rami. There is narrowing with sclerosis of the pubic symphysis. Normal bilateral ischial tuberosities. Normal visualized femoral head. There is osteoarthritic spur formation of the acetabular rim. There is moderate articular joint space narrowing of the hip. RAD/HIP, UNI W/ Pelvis 2-3 Views IMPRESSION: Degenerative changes as described. Multiple tiny lucencies are seen as described. An infiltrative process should be ruled out. Electronically Signed: Attila Cabello MD at 12:55 EDT ,
--- NOTE | 2022-04-22 11:33 | CASEMGMT ---
Discharge Help Desk Rep Isa reached out via Care Port. Patient has a balance at [facility] of $7,047.22 from a previous stay. [facility] would like patient to pay half. HEIDI Salcedo has been notified. Bette Mcmanus Discharge Help Desk Rep
[2022-04-22 12:30] LABS: Bedside Glucose 138 mg/dL (74-106)
--- NOTE | 2022-04-22 14:19 | CASEMGMT ---
Social Work Note HEIDI met with pt and introduced self and role of SW. Pt agreeable to speak with HEIDI regarding his discharge plan. HEIDI informed pt that [facility] reports he has a $7047.00 balance from 2020 and must pay half that balance prior to them accepting him. Pt states he never got a bill from [facility] and will not be paying that balance. A list of SNF providers including quality and resource use data and consistent with the patient?s preferred geographic region, medical needs, and insurance network were provided from the CarePort Guide. HEIDI reviewed the list with the pt and pt's first choice is now [facility] and second choice is [facility]. Pt states he does received dialysis at [facility] at 1045. Pt's son transports pt to dialysis and daughter transports pt home from dialysis. Pt states his children will continue to provide transportation in the SNF. SW explained that precert will need to be obtained from insurance prior to admission to SNF and SW explained insurance will only pay for short term rehab stay. Pt is hopeful SNF stay for rehab is short and plans to return home with his . Bette, discharge emergency medicine physician assistant, notified and requested that referral be sent to [facility] with dialysis information. Plan: [facility], pending acceptance and precert GOLDIE Sandhu
--- NOTE | 2022-04-22 14:23 | CASEMGMT ---
Addendum entered by Bette Mcmanus 04/22/22 15:10: Discharge Pick Pack Worker Bette barber/jl sociology research assistant checked Care Port. Both SNF has not responded yet. Bette called Monse at [facility]. [facility] Port did not alert her so Monse had no idea this senior mortgage underwriter sent her a referral. Bette called Juli at the [facility] and notified Juli that this senior mortgage underwriter sent a referral via Care Port. Juli is reviewing referral at this moment Bette Mcmanus Discharge Pick Pack Worker Original Note: Discharge Pick Pack Worker Bette barber/jl sociology research assistant sent referrals to [facility] and [facility] per patients request. Bette notified SNF that patient goes to [facility] for Dialysis MWF with a chair time of 10:45am. Family can keep taking patient to and from dialysis if needed. Will follow up. Plan: [facility] vs [facility], Waiting Acceptance Bette Mcmanus Discharge Pick Pack Worker
[2022-04-22] MEDS: Acetaminophen 500 MG Tablet 1000 MG PO ×2 (15:11→23:07)
[2022-04-22 17:50] LABS: Bedside Glucose 111 mg/dL (74-106)
--- NOTE | 2022-04-22 21:16 | DIALYSIS ---
Patient is refusing dialysis [facility] yelling that it is way too late to start this now. It was 2044 at the time. I explained and apologized but he stated he will just do it first thing in the morning, he just doesn't want to be on the machine until midnight. Dr Peng was notified and RN assigned to [place] tomorrow am was also notified to start with this patient. Patients Nurse Zeinab was notified as well as our charge nurse. He is not SOB or in any distress at this time.
[2022-04-22] MEDS: Tamsulosin HCl 0.4 MG Capsule 0.8 MG PO (23:00)
[2022-04-22] MEDS: Atorvastatin Calcium 80 MG Tablet PO (23:01)
[2022-04-22] MEDS: MELATONIN 3 MG TABLET 6 MG PO (23:01)
[2022-04-22 23:40] LABS: Bedside Glucose 112 mg/dL (74-106)
[2022-04-23] VITALS (7 sets, daily range): BP systolic 97–120; BP diastolic 49–70; PULSE 45–70; RESP 16–18; TEMP 36.6–36.8; O2SAT 95–99
[2022-04-23 05:30] LABS: Absolute Neutrophil Count 4.5 X10^3/uL (2.0-7.7); Basophil# 0.03 X10^3/uL; Basophil% 0.4 % (0-1); Eosinophil# 0.23 X10^3/uL; Eosinophils% 3.4 % (0-5); Hematocrit 27.2 % (40-54); Hemoglobin 8.9 g/dL (13.0-16.5); Lymphocyte % 20.8 % (19-41); Mean Corp Hgb Conc 32.7 g/dL (32-36); Mean Corpuscular Hgb 31.8 pg (27.0-32.0); Mean Corpuscular Volume 97.1 fL (80-94); Mean Platelet Vol. 10.3 fl (6.2-12.0); Monocyte# 0.52 X10^3/uL; Monocyte% 7.7 % (0-10); NRBC Flagged by Analyzer 0 % (0-5); Neutrophil # 4.49 X10^3/uL (2.7-7.7); Platelet Count 142 K/mm3 (150-450); RBC Distribution Width CV 13.8 % (11.6-14.6); RBC Distribution Width SD 49.2 fl (35.1-43.9); White Blood Count 6.7 K/mm3 (4.4-11.0)
[2022-04-23 05:51] LABS: ALB/GLOB Ratio 0.8 RATIO (0.9-2.4); AST(SGOT) 157 U/L (15-37); Alanine Aminotransfer ALT/SGPT 77 U/L (16-61); Albumin, Serum 2.4 g/dL (3.2-5.0); Alkaline Phosphatase 66 U/L (45-117); Anion Gap 13 (5-15); BUN 121 mg/dL (7-18); BUN/Creat Ratio 9.5 RATIO (10-20); Calcium,Total 8.2 mg/dL (8.5-10.1); Chloride 99 mmol/L (98-107); EST Glomerular Filtration Rate 4 mL/min (>60); Est Glom Filt Rate - Afr Amer 5 mL/min (>60); Estimated Creatinine Clearance 5.01 ml/min; Globulin 3.1 g/dL (2.2-4.2); Glucose 113 mg/dL (74-106); Potassium 5.2 mmol/L (3.5-5.1); Protein, Total 5.5 g/dL (6.4-8.2); Sodium Level 138 mmol/L (136-145)
[2022-04-23] MEDS: Acetaminophen 500 MG Tablet 1000 MG PO ×3 (06:31→22:19)
--- NOTE | 2022-04-23 07:44 | CASEMGMT ---
Discharge Web Support Engineer [facility] can accept patient. Waiting to see what choice the patient picks. Plan: [facility] vs [facility], Waiting on patients decision. Bette Mcmanus Discharge Web Support Engineer
--- NOTE | 2022-04-23 10:09 | CASEMGMT ---
Social Work Per Bette, discharge lead recreation assistant, pt has been accepted at [facility] and precert has been started. SW met with pt and informed of this. Pt appreciative of information. Plan: [facility], pending precert GOLDIE Sandhu
--- NOTE | 2022-04-23 10:23 | PN.RENAL_ITS ---
Subjective Subjective I came over to supervise him during dialysis session. He is doing well. He refused dialysis yesterday. No issues with the access, blood flow 400 cc/min, blood pressure stable. Objective Data Objective Data QB 400 cc/min, AV fistula Vital Signs: Vital Signs Temp Pulse Resp BP Pulse Ox O2 Del Method 98.4 F 58 L 20 H 124/57 H 95 Room Air 04/24/22 04:17 04/24/22 06:00 04/24/22 04:17 04/24/22 05:08 04/24/22 04:17 04/24/22 04:17 Oxygen Delivery Method Room Air Weight: 74 kg Body Mass Index (BMI) 24.0 Intake & Output: Intake and Output for Last 24 Hours 04/22/22 04/23/22 04/24/22 23:59 23:59 23:59 Intake Total 480 / 480 825 / 825 200 / 200 Output Total 0 / 0 Balance 480 / 480 825 / 825 200 / 200 Lab / Micro Data Attestation: I reviewed the patient's lab results. Result Diagrams: 04/24/22 05:13 04/24/22 05:13 Labs: Laboratory Results - last 24 hr 04/23/22 10:21: POC Glucose 114 H 04/23/22 12:45: POC Glucose 188 H 04/23/22 16:22: POC Glucose 108 H 04/23/22 22:00: POC Glucose 107 H 04/24/22 04:35: POC Glucose 93 04/24/22 05:13: WBC 7.8, RBC 2.92 L, Hgb 9.1 L, Hct 28.4 L, MCV 97.3 H, MCH 31.2, MCHC 32.0, RDW Std Deviation 50.3 H, RDW Coeff of Arturo 14.1, Plt Count 155, MPV 10.1, Immature Gran % (Auto) 0.800, Neut % (Auto) 68.2, Lymph % (Auto) 18.8 L, [place] % (Auto) 9.2, Eos % (Auto) 2.6, Baso % (Auto) 0.4, Absolute Neuts (auto) 5.3, Absolute Lymphs (auto) 1.47, Nucleated RBC % 0 04/24/22 05:13: Sodium 134 L, Potassium 4.8, Chloride 98, Carbon Dioxide 27.0, Anion Gap 9, BUN 68 H, Creatinine 8.21 H*, Estim Creat Clear Calc 7.75, Est GFR (MDRD) Af Amer 8 L, Est GFR (MDRD) Non-Af 7 L, BUN/Creatinine Ratio 8.3 L, Glucose 109 H, Calcium 7.7 L, Total Bilirubin 0.60, AST 221 H, ALT 99 H, Alkaline Phosphatase 67, Total Protein 5.6 L, Albumin 2.4 L, Globulin 3.2, Albumin/Globulin Ratio 0.8 L 04/24/22 05:13: Troponin I High Sens 143 H* 04/24/22 07:25: Troponin I High Sens 132 H* Radiography Diagnostic Testing: Radiology Impression Chest X-Ray 04/24/22 05:00 IMPRESSION: No radiographic evidence of acute cardiopulmonary disease. Electronically Signed: Joni Khan MD at 5:19 EDT , Physical Exam Narrative Elderly male in no acute distress, eating breakfast Currently on dialysis machine, no issues Const alert General Appearance: well developed Orientation / Consciousness: oriented to person and oriented to place HEENT normocephalic Head and Scalp: atraumatic Resp no use of accessory muscles and clear to auscultation bilaterally Cardio regular rate and no murmurs Assessment & Plan Assessment/Plan (1) ESRD (end stage renal disease) on dialysis: PLAN: Stable on dialysis, we will schedule him for short dialysis session tomorrow, to put him on the schedule of Friday
--- NOTE | 2022-04-23 10:26 | PCM.PN.HOSP ---
Subjective Subjective Follow-up on debility: Patient was seen and examined. No acute events. Awaiting insurance precertification. Objective Data Objective Data Vital Signs: Vital Signs Temp Pulse Resp BP Pulse Ox O2 Del Method 98.1 F 60 18 112/49 L 95 Room Air 04/23/22 06:05 04/23/22 06:33 04/23/22 06:05 04/23/22 06:33 04/23/22 06:05 04/23/22 06:05 Oxygen Delivery Method Room Air Weight: 74.3 kg Body Mass Index (BMI) 24.0 Intake & Output: Intake and Output for Last 24 Hours 04/21/22 04/22/22 04/23/22 23:59 23:59 23:59 Intake Total 1150 / 1150 480 / 480 Output Total 0 / 0 0 / 0 Balance 1150 / 1150 480 / 480 Lab / Micro Data Result Diagrams: 04/23/22 05:11 04/23/22 05:11 Labs: Laboratory Results - last 24 hr 04/22/22 12:13: POC Glucose 138 H 04/22/22 16:54: POC Glucose 111 H 04/22/22 23:14: POC Glucose 112 H 04/23/22 05:11: WBC 6.7, RBC 2.80 L, Hgb 8.9 L, Hct 27.2 L, MCV 97.1 H, MCH 31.8, MCHC 32.7, RDW Std Deviation 49.2 H, RDW Coeff of Arturo 13.8, Plt Count 142 L, MPV 10.3, Immature Gran % (Auto) 0.700, Neut % (Auto) 67.0, Lymph % (Auto) 20.8, [place] % (Auto) 7.7, Eos % (Auto) 3.4, Baso % (Auto) 0.4, Absolute Neuts (auto) 4.5, Absolute Lymphs (auto) 1.40, Nucleated RBC % 0 04/23/22 05:11: Sodium 138, Potassium 5.2 H, Chloride 99, Carbon Dioxide 26.0, Anion Gap 13, BUN 121 H*, Creatinine 12.70 H*, Estim Creat Clear Calc 5.01, Est GFR (MDRD) Af Amer 5 L, Est GFR (MDRD) Non-Af 4 L, BUN/Creatinine Ratio 9.5 L, Glucose 113 H, Calcium 8.2 L, Total Bilirubin 0.60, AST 157 H, ALT 77 H, Alkaline Phosphatase 66, Total Protein 5.5 L, Albumin 2.4 L, Globulin 3.1, Albumin/Globulin Ratio 0.8 L Radiography Diagnostic Testing: Radiology Impression Hip/Pelvis X-Ray 04/22/22 11:00 IMPRESSION: Degenerative changes as described. Multiple tiny lucencies are seen as described. An infiltrative process should be ruled out. Electronically Signed: Attila Cabello MD at 12:55 EDT , Physical Exam Narrative Physical exam: General: Alert, Oriented x3, Cooperative, appears frail HEENT: Atraumatic Oral: Moist Mucosa Neck: Supple Lungs: Clear to auscultation Cardiovascular: HS I+II, regular, no murmurs Abdomen: Bowel Sounds Present, Soft, Non Tender Extremities: No bilateral pedal edema, tenderness on palpation left pelvic region Skin: No rashes, No breakdown Neurological: Grossly intact Psych/Mental Status: Appropriate Assessment & Plan Assessment/Plan (1) Generalized weakness: PLAN: Plan 1. Acute on chronic debility, status post mechanical fall Admitting x-ray of the knees as well as severe and fibula are unremarkable Xrays of pelvis show no acute fractures Tylenol 1000 p.o. 3 times daily, PT/OT to evaluate and treat 2. CAD status post CABG/PAD status post bilateral lower extremity angioplasties/hyperlipidemia/hypertension, appears to be stable Continue aspirin, statin, losartan, Coreg, fenofibrate and amlodipine 3. History of left parietal CVA/S DH/intraventricular hemorrhage Continue on Keppra 4. Type II DM, blood sugars are controlled, not on any diabetic medication We will continue to monitor Sliding scale blood glucose checks 5. ESRD on HD, on hemodialysis, nephrology consulted Continue on Phoslo 6. Anemia of chronic kidney disease, Hb appears to be stable 7. Abnormal pelvic/femoral x-rays with evidence of multiple translucencies Will refer to oncology in the outpatient 8. GERD, on PPI 9. DVT prophylaxis?heparin subcu Charges/Coding Visit Charges Inpatient E&M: 82075 Subs Hosp L2
[2022-04-23 10:45] LABS: Bedside Glucose 114 mg/dL (74-106)
--- NOTE | 2022-04-23 11:38 | DIALYSIS ---
Hemodialysis tx completed x 3 hours without complications. Pt tolerated tx fair, fluid removed 1,00ml using crit-line monitor. Vitals stable post tx, pt feels fatigued. verbal report to CASSANDRA Ko post tx
[2022-04-23] MEDS: Carvedilol 12.5 MG Tablet PO (12:37)
[2022-04-23] MEDS: Losartan Potassium 50 MG Tablet PO (12:37)
[2022-04-23] MEDS: amLODIPine 5 MG Tablet PO (12:37)
[2022-04-23] MEDS: Aspirin 81 MG TAB.CHEW PO (12:37)
[2022-04-23] MEDS: levETIRAcetam 500 MG Tablet PO ×2 (12:37→22:15)
[2022-04-23] MEDS: Calcium Acetate 667 MG Capsule PO ×2 (12:38→16:24)
[2022-04-23] MEDS: Finasteride 5 MG Tablet PO (12:38)
[2022-04-23] MEDS: Pantoprazole Sodium 40 MG Tablet PO (12:38)
[2022-04-23] MEDS: Fenofibrate 48 MG Tablet PO (12:38)
[2022-04-23] MEDS: Heparin Injection (Vial) 5,000 UNIT/ML VIAL 5000 UNIT SC ×2 (12:39→22:16)
[2022-04-23] MEDS: Menthol/Lanolin/Calamine/Znox 113 GM Tube 1 APPLIC TOPICAL ×2 (12:40→22:14)
[2022-04-23] MEDS: Insulin Lispro 100 UNIT/ML INSULN.PEN SC (12:46)
[2022-04-23 13:10] LABS: Bedside Glucose 188 mg/dL (74-106)
[2022-04-23 17:10] LABS: Bedside Glucose 108 mg/dL (74-106)
[2022-04-23] MEDS: guaiFENesin 600 MG Tablet PO (18:12)
[2022-04-23] MEDS: Atorvastatin Calcium 80 MG Tablet PO (22:15)
[2022-04-23] MEDS: Tamsulosin HCl 0.4 MG Capsule 0.8 MG PO (22:15)
[2022-04-23] MEDS: MELATONIN 3 MG TABLET 6 MG PO (22:15)
[2022-04-24] VITALS (11 sets, daily range): BP systolic 99–124; BP diastolic 38–57; PULSE 42–63; RESP 18–20; TEMP 36.1–36.9; O2SAT 94–97
[2022-04-24 00:05] LABS: Bedside Glucose 107 mg/dL (74-106)
[2022-04-24] MEDS: Ondansetron 4 MG/2 ML Vial IV (04:31)
[2022-04-24] MEDS: 0.9% Saline Lock 10 ML Syringe IV (04:41)
--- NOTE | 2022-04-24 04:43 | EKG12_ITS ---
Test Reason : CP Blood Pressure : / mmHG Vent. Rate : 060 BPM Atrial Rate : 060 BPM P-R Int : 480 ms QRS Dur : 140 ms QT Int : 446 ms P-R-T Axes : 063 -86 -07 degrees QTc Int : 446 ms Sinus rhythm with 1st degree A-V block Left axis deviation Right bundle branch block Inferior infarct (cited on or before 04-NOV-2012) Abnormal ECG When compared with ECG of 30-JUL-2020 14:04, No significant change was found Confirmed by KAI SARMIENTO, SHELDON ([id number]), photograph editor SELVIN MATUTE ([id number]) on 04/24/2022 2:05:38 PM Referred By: Confirmed By:SHELDON QUINN MD
--- NOTE | 2022-04-24 05:00 | RAD_ITS ---
INDICATION: CHEST PAIN EXAMINATION/TECHNIQUE: X-RAY - AP view of chest COMPARISON: 2 view chest x-ray from 04/19/2022 FINDINGS: LINES/DEVICES: None. LUNGS: No overt pulmonary edema or focal airspace consolidation. No sizable pleural effusion. No detectable pneumothorax. Stable mildly elevated right hemidiaphragm. MEDIASTINUM AND CARDIOVASCULAR STRUCTURES: Heart size within normal limits for imaging technique. Previous sternotomy and CABG. Atherosclerotic calcifications along aorta. BONES AND SOFT TISSUES: Skeletal degenerative changes. RAD/Chest 1 View (Portable) IMPRESSION: No radiographic evidence of acute cardiopulmonary disease. Electronically Signed: Joni Khan MD at 5:19 EDT ,
[2022-04-24] MEDS: Aspirin 325 MG Tablet PO (05:08)
[2022-04-24] MEDS: hydrALAZINE 25 MG Tablet PO (05:08)
[2022-04-24] MEDS: Acetaminophen 500 MG Tablet 1000 MG PO ×3 (05:10→20:34)
[2022-04-24 05:19] LABS: Absolute Lymphocyte Count 1.47 X10^3/uL (0.83-4.51); Absolute Neutrophil Count 5.3 X10^3/uL (2.0-7.7); Basophil# 0.03 X10^3/uL; Basophil% 0.4 % (0-1); Eosinophils% 2.6 % (0-5); Hematocrit 28.4 % (40-54); Hemoglobin 9.1 g/dL (13.0-16.5); Lymphocyte # 1.47 X10^3/ul (0.83-4.51); Lymphocyte % 18.8 % (19-41); Mean Corpuscular Hgb 31.2 pg (27.0-32.0); Mean Corpuscular Volume 97.3 fL (80-94); Mean Platelet Vol. 10.1 fl (6.2-12.0); Monocyte# 0.72 X10^3/uL; Monocyte% 9.2 % (0-10); NRBC Flagged by Analyzer 0 % (0-5); Neutrophil # 5.32 X10^3/uL (2.7-7.7); Neutrophil % 68.2 % (47-70); Platelet Count 155 K/mm3 (150-450); RBC Distribution Width CV 14.1 % (11.6-14.6); RBC Distribution Width SD 50.3 fl (35.1-43.9); Red Blood Count 2.92 M/mm3 (4.6-6.2); White Blood Count 7.8 K/mm3 (4.4-11.0)
[2022-04-24 05:35] LABS: Bedside Glucose 93 mg/dL (74-106)
--- NOTE | 2022-04-24 05:37 | NURSING ---
Around 0500 patient said he was going to . Chest pain radiating to R shoulder and arm. EKG done. No stemi. Vitals checked. WNL. Troponin labs ordered. Zofran given for nausea. Aspirin 325 mg x1 given. Sugar checked, was in 90s. Apple juice given. Patient then said he felt better and chest/arm pain was about gone. Awaiting troponin results.
[2022-04-24 05:54] LABS: ALB/GLOB Ratio 0.8 RATIO (0.9-2.4); AST(SGOT) 221 U/L (15-37); Alanine Aminotransfer ALT/SGPT 99 U/L (16-61); Albumin, Serum 2.4 g/dL (3.2-5.0); Alkaline Phosphatase 67 U/L (45-117); Anion Gap 9 (5-15); BUN 68 mg/dL (7-18); BUN/Creat Ratio 8.3 RATIO (10-20); Calcium,Total 7.7 mg/dL (8.5-10.1); Chloride 98 mmol/L (98-107); Creatinine, Serum 8.21 mg/dL (0.70-1.30); EST Glomerular Filtration Rate 7 mL/min (>60); Est Glom Filt Rate - Afr Amer 8 mL/min (>60); Estimated Creatinine Clearance 7.75 ml/min; Globulin 3.2 g/dL (2.2-4.2); Glucose 109 mg/dL (74-106); Potassium 4.8 mmol/L (3.5-5.1); Protein, Total 5.6 g/dL (6.4-8.2); Sodium Level 134 mmol/L (136-145); Troponin-I HS 143 pg/mL (3.0-78.0)
[2022-04-24 08:01] LABS: Troponin-I HS 132 pg/mL (3.0-78.0)
--- NOTE | 2022-04-24 08:17 | DIALYSIS ---
Addendum entered by Ena Bradford 04/24/22 08:20: Dr Peng aware pt refusing dialysis tx. Pt stable and in no acute distress at this time. Original Note: Patient refusing dialysis today. Pt advised today was scheduled treatment to get him back on MWF schedule. Pt refusing to have another tx today. Nephrology notified. Pt educated on need for dialysis tx verbalizes understanding but still refuses. Floor RN informed.
[2022-04-24] MEDS: Calcium Acetate 667 MG Capsule PO ×2 (08:43→17:37)
[2022-04-24] MEDS: levETIRAcetam 500 MG Tablet PO ×2 (08:43→20:35)
[2022-04-24] MEDS: Aspirin 81 MG TAB.CHEW PO (08:44)
[2022-04-24] MEDS: Heparin Injection (Vial) 5,000 UNIT/ML VIAL 5000 UNIT SC (08:44)
[2022-04-24] MEDS: Finasteride 5 MG Tablet PO (08:45)
[2022-04-24] MEDS: Fenofibrate 48 MG Tablet PO (08:45)
[2022-04-24] MEDS: Menthol/Lanolin/Calamine/Znox 113 GM Tube 1 APPLIC TOPICAL ×2 (08:45→20:37)
[2022-04-24] MEDS: Pantoprazole Sodium 40 MG Tablet PO (08:45)
--- NOTE | 2022-04-24 09:38 | CASEMGMT ---
Discharge Chemist Instrumentation Monse reached out. Noam Garcia has obtained pre-cert on patient. SW notified. Plan: Noam Garcia, When medically ready Bette Mcmanus Discharge Chemist Instrumentation
--- NOTE | 2022-04-24 10:36 | CASEMGMT ---
Social Work SW called pt daughter this morning to confirm pt's children could transport pt to dialysis appointments if he goes to SNF. Left message requesting pt daughter call back to confirm. SW has not heard back from pt daughter. SW called pt son just now to attempt discussing this matter with pt son as well. Left same message with pt son and requested a call back to confirm transportation would be covered or pt before he is discharged to SNF as [facility] is reporting the facility has limitations for transportation at this time. PLAN: await confirmation of family willing to transport GOLDIE Sanderson
--- NOTE | 2022-04-24 10:44 | ECHOD_ITS ---
Reason For Study: FREQUENT FALLS Procedure This was a 2D Doppler, Color Flow transthoracic echocardiogram. Exam performed portable in patient room. Left Ventricle Normal LV size. Moderate concentric left ventricular hypertrophy. Left ventricular systolic function is normal. The estimated ejection fraction is 60 %. No regional wall motion abnormalities noted. Right Ventricle Normal RV size. Normal systolic function. Atria Normal left atrium. Normal right atrium. Mitral Valve Bileaflet diffuse mitral valve thickening. Mild (1+) mitral valve insufficiency. Tricuspid Valve Normal tricuspid valve. Mild to moderate (1-2+) tricuspid valve insufficiency. Pulmonary artery systolic pressure is 46 mmHg. Aortic Valve Trisinus/trileaflet aortic valve. Mild focal aortic valve thickening. Peak aortic valve gradient 32 mmHg. Mean aortic valve gradient 20 mmHg. Mild to moderate aortic stenosis. Mild (1+) aortic valve insufficiency. Great Vessels Normal aortic root. The pulmonary artery is normal size. Normal inferior vena cava. Pericardium/Pleural No pericardial effusion. MMode/2D Measurements & Calculations LVIDd: 4.5 cm IVSd: 1.5 cm LVOT diam: 2.0 cm LVIDs: 3.2 cm LVPWd: 1.2 cm LVOT area: 3.2 cm2 RVDd: 4.6 cm FS: 29.8 % Ao root diam: 2.9 cm LAV(MOD-bp): 66.9 ml LVAd ap4: 33.7 cm2 LAV(MOD-bp) Indexed: 35.7 ml/m2 LVLd ap4: 8.5 cm LAV(MOD-sp2): 52.0 ml EDV(MOD-sp4): 113.2 ml LAV(MOD-sp4): 79.9 ml EDV(sp4-el): 113.0 ml LVAs ap4: 14.6 cm2 LVLs ap4: 7.4 cm ESV(MOD-sp4): 24.6 ml ESV(sp4-el): 24.4 ml EF(MOD-sp4): 78.3 % EF(sp4-el): 78.4 % SV(MOD-sp4): 88.6 ml SV(sp4-el): 88.6 ml LA A4 area: 24.4 cm2 LA dimension(2D): 4.0 cm RA A4 area: 17.1 cm2 Doppler Measurements & Calculations Ao V2 max: 282.8 cm/sec AI max hans: 367.8 cm/sec LV V1 max: 109.2 cm/sec Ao max P.0 mmHg AI max P.2 mmHg LV V1 max P.8 mmHg Ao V2 mean: 207.0 cm/sec LV V1 mean P.1 mmHg Ao mean P.4 mmHg AI dec slope: 194.1 cm/sec2 LV V1 mean: 83.1 cm/sec Ao V2 VTI: 72.2 cm AI P1/2t: 555.0 msec LV V1 VTI: 30.6 cm VICKI(I,D): 1.4 cm2 VICKI(V,D): 1.2 cm2 SV(LVOT): 98.3 ml PA V2 max: 85.1 cm/sec TR max hans: 327.4 cm/sec PA V2 mean: 58.9 cm/sec TR max P.9 mmHg ECHO/Echo Complete Interpretation Summary Normal LV size. Left ventricular systolic function is normal. The estimated ejection fraction is 60 %. Moderate concentric left ventricular hypertrophy. Pulmonary artery systolic pressure is 46 mmHg. Mean aortic valve gradient 20 mmHg. Mild to moderate aortic stenosis. Ordering Physician: Sienna oR Referring Physician: NO PCP GIVEN Performed By: Jenny Gomez RCS
--- NOTE | 2022-04-24 11:03 | CASEMGMT ---
Social Work SW placed phone call to pt Dgt Dinorah Avivalaura to discuss transportation to dialysis appointments and she confirms she and her brother can provide needed transportation. SW spoke with pt and informed that [facility] has accepted and precert has been obtained. SW spoke with physician and informed that pt can d/c when medically ready. GOLDIE Sandhu
--- NOTE | 2022-04-24 11:05 | CASEMGMT ---
Discharge Knobber Bette barber/jl assistant to the vice president notified Monse that family WILL be transporting patient to and from Dialysis. Bette told Monse that patient is getting a couple test done today. If medically cleared he will be coming today. Plan: [place], When medically ready Bette Mcmanus Discharge Knobber
[2022-04-24 11:29] LABS: Troponin-I HS 134 pg/mL (3.0-78.0)
[2022-04-24 13:25] LABS: Bedside Glucose 107 mg/dL (74-106)
--- NOTE | 2022-04-24 13:35 | CT_ITS ---
STUDY: CT ABDOMEN AND PELVIS WITHOUT CONTRAST REASON FOR EXAM: Male, 71 years old. LLQ tenderness RADIATION DOSAGE (If Supplied By Facility): CTDIvol = ( 8.02 ) mGy, DLP = ( 432.54 ) mGycm TECHNIQUE: Transaxial images were obtained from the dome of the diaphragm to the symphysis pubis without oral contrast, and without intravenous contrast. Sagittal and coronal images were reconstructed. Individualized dose optimization techniques were used for this CT. COMPARISON: Comparison is made with prior study dated 07/22/2019. FINDINGS: Increased reticular nodular markings at the lung bases suggestive of scarring. Coronary artery calcification. Normal liver. There are multiple small gallstones. Normal spleen. Normal pancreas. Normal bilateral adrenal glands. Mild degree of nonspecific right perinephric stranding. There is a 2.1 cm cyst in the lateral aspect of the left kidney. The left kidney shows evidence of atrophy. Normal visualized stomach. Normal small intestine. There is diverticulosis, with thickening of the colon wall, and mild pericolonic inflammation changes consistent with a mild degree of acute diverticulitis. The appendix is visualized and appears normal. There is diffuse atherosclerotic calcification of the abdominal aorta and its major visceral branches, without a demonstrated aneurysm. Normal inferior vena cava. Normal retroperitoneum. There is a distended urinary bladder. There is enlargement of the prostate gland. The prostate measures 4.9 cm x 5.4 cm. Prostatic calcifications are seen. There is a left-sided inguinal hernia containing adipose tissue. There are degenerative changes of the visualized lumbar spine. CT/Abdomen/Pelvis without Cont IMPRESSION: Mild degree of sigmoid diverticulitis. Distended urinary bladder. Prostatic enlargement. Multiple small gallstones. Left renal cyst. Electronically Signed: Attila Cabello MD at 13:57 EDT ,
--- NOTE | 2022-04-24 16:00 | CASEMGMT ---
Hospitalist notified RN ANNA that pt declined dialysis today but is now agreeable. She would like pt to have dialysis yet tonight and dc tomorrow. Notified Juli, charge nurse who will notify dialysis team.
--- NOTE | 2022-04-24 16:01 | NURSING ---
talked with michele busby who states pt now agreeable to dialysis tonight and Dr. Ro on unit requesting it be done. Call placed to acute diaylsis Nurse Rupali who states they will do him first thing in the a.m. they don't have anyone to do him tonight.
--- NOTE | 2022-04-24 16:02 | PCM.PN.HOSP ---
Subjective Subjective Follow-up on debility/chest pain: Patient seen and examined. He had severe chest pain last night. EKG showed no acute ST-T changes. Troponin was initially 143 -->134. He said that he started having lower abdominal discomfort that radiated up into his chest and chest fullness. This exacerbated his right shoulder pain. He felt like his life was sleeping him. CT abdomen pelvis showed mild sigmoid diverticulitis. 2D echo is pending Patient refused dialysis today because he did not feel well yesterday. Objective Data Objective Data Vital Signs: Vital Signs Temp Pulse Resp BP Pulse Ox O2 Del Method 97.6 F L 57 L 18 112/56 L 94 Room Air 04/24/22 10:00 04/24/22 13:57 04/24/22 10:00 04/24/22 13:57 04/24/22 10:00 04/24/22 10:00 Oxygen Delivery Method Room Air Weight: 74 kg Body Mass Index (BMI) 24.0 Intake & Output: Intake and Output for Last 24 Hours 04/22/22 04/23/22 04/24/22 23:59 23:59 23:59 Intake Total 480 / 480 825 / 825 500 / 500 Output Total 0 / 0 Balance 480 / 480 825 / 825 500 / 500 Lab / Micro Data Result Diagrams: 04/24/22 05:13 04/24/22 05:13 Labs: Laboratory Results - last 24 hr 04/23/22 16:22: POC Glucose 108 H 04/23/22 22:00: POC Glucose 107 H 04/24/22 04:35: POC Glucose 93 04/24/22 05:13: WBC 7.8, RBC 2.92 L, Hgb 9.1 L, Hct 28.4 L, MCV 97.3 H, MCH 31.2, MCHC 32.0, RDW Std Deviation 50.3 H, RDW Coeff of Arturo 14.1, Plt Count 155, MPV 10.1, Immature Gran % (Auto) 0.800, Neut % (Auto) 68.2, Lymph % (Auto) 18.8 L, [place] % (Auto) 9.2, Eos % (Auto) 2.6, Baso % (Auto) 0.4, Absolute Neuts (auto) 5.3, Absolute Lymphs (auto) 1.47, Nucleated RBC % 0 04/24/22 05:13: Sodium 134 L, Potassium 4.8, Chloride 98, Carbon Dioxide 27.0, Anion Gap 9, BUN 68 H, Creatinine 8.21 H*, Estim Creat Clear Calc 7.75, Est GFR (MDRD) Af Amer 8 L, Est GFR (MDRD) Non-Af 7 L, BUN/Creatinine Ratio 8.3 L, Glucose 109 H, Calcium 7.7 L, Total Bilirubin 0.60, AST 221 H, ALT 99 H, Alkaline Phosphatase 67, Total Protein 5.6 L, Albumin 2.4 L, Globulin 3.2, Albumin/Globulin Ratio 0.8 L 04/24/22 05:13: Troponin I High Sens 143 H* 04/24/22 07:25: Troponin I High Sens 132 H* 04/24/22 11:04: Troponin I High Sens 134 H* 04/24/22 11:59: POC Glucose 107 H Micro: Microbiology 04/24/22 12:00 Nasal Secretion SARS-CoV-2 Antigen (Rapid) - Final Radiography Diagnostic Testing: Radiology Impression Chest X-Ray 04/24/22 05:00 IMPRESSION: No radiographic evidence of acute cardiopulmonary disease. Electronically Signed: Joni Khan MD at 5:19 EDT , Abdomen/Pelvis CT 04/24/22 13:35 IMPRESSION: Mild degree of sigmoid diverticulitis. Distended urinary bladder. Prostatic enlargement. Multiple small gallstones. Left renal cyst. Electronically Signed: Attila Cabello MD at 13:57 EDT , Physical Exam Narrative Physical exam: General: Alert, Oriented x3, Cooperative, appears frail HEENT: Atraumatic Oral: Moist Mucosa Neck: Supple Lungs: Clear to auscultation Cardiovascular: HS I+II, regular, no murmurs Abdomen: Bowel Sounds Present, Soft, Non Tender Extremities: No bilateral pedal edema, tenderness on palpation left pelvic region Skin: No rashes, No breakdown Neurological: Grossly intact Psych/Mental Status: Appropriate Assessment & Plan Assessment/Plan (1) Generalized weakness: PLAN: Plan 1. Acute mild sigmoid diverticulitis, seen on CT abdomen/pelvis Started on IV Unasyn, will discharge on oral Augmentin 2. Acute chest pain with indeterminate troponin EKG shows no acute ST-T changes 2D echo pending 3. Acute on chronic debility, status post mechanical fall Admitting x-ray of the knees as well as severe and fibula are unremarkable Xrays of pelvis show no acute fractures Tylenol 1000 p.o. 3 times daily, PT/OT to evaluate and treat 4. CAD status post CABG/PAD status post bilateral lower extremity angioplasties/hyperlipidemia/hypertension, appears to be stable Changes made to blood pressure medications?amlodipine discontinued, Coreg decreased to 6.25 mg twice daily Continue aspirin, statin, losartan, fenofibrate 5. History of left parietal CVA/S DH/intraventricular hemorrhage Continue on Keppra 6. Type II DM, blood sugars are controlled, not on any diabetic medication We will continue to monitor Sliding scale blood glucose checks 7. ESRD on HD, on hemodialysis, nephrology consulted Continue on Phoslo 8. Anemia of chronic kidney disease, Hb appears to be stable 9. Abnormal pelvic/femoral x-rays with evidence of multiple translucencies Will refer to oncology in the outpatient 10. GERD, on PPI 11. DVT prophylaxis?heparin subcu Charges/Coding Visit Charges Inpatient E&M: 42356 Subs Hosp L2
--- NOTE | 2022-04-24 16:04 | NURSING ---
Dr. Ro updated on response from acute dialysis nurse.
--- NOTE | 2022-04-24 16:04 | CASEMGMT ---
Social Work SW completed PASSR in [employer] system. Placed copies of discharge orders and signed med list on pt chart and originals in envelope to go with pt when medically ready. Dr. Ro discussed concerns with pt dialysis and has decided pt needs one more night in hospital before being discharged. HEIDI updated Bette Mcmanus, discharge nutrition services assistant of new plan. PLAN: Discharge tomorrow to [facility]. GOLDIE Sanderson
[2022-04-24 16:40] LABS: Bedside Glucose 76 mg/dL (74-106)
[2022-04-24] MEDS: MELATONIN 3 MG TABLET 6 MG PO (20:34)
[2022-04-24] MEDS: Tamsulosin HCl 0.4 MG Capsule 0.8 MG PO (20:34)
[2022-04-24] MEDS: Atorvastatin Calcium 80 MG Tablet PO (20:35)
[2022-04-24 21:00] LABS: Bedside Glucose 79 mg/dL (74-106)
[2022-04-25 03:00] VITALS: BP 121/53; PULSE 61; PULSE 64; RESP 18; TEMP 36.6; O2SAT 95
[2022-04-25 05:05] LABS: Absolute Lymphocyte Count 1.25 X10^3/uL (0.83-4.51); Absolute Neutrophil Count 4.7 X10^3/uL (2.0-7.7); Basophil# 0.03 X10^3/uL; Basophil% 0.4 % (0-1); Eosinophil# 0.29 X10^3/uL; Eosinophils% 4.2 % (0-5); Hematocrit 26.6 % (40-54); Hemoglobin 8.6 g/dL (13.0-16.5); Lymphocyte # 1.25 X10^3/ul (0.83-4.51); Mean Corp Hgb Conc 32.3 g/dL (32-36); Mean Corpuscular Hgb 31.5 pg (27.0-32.0); Mean Corpuscular Volume 97.4 fL (80-94); Mean Platelet Vol. 10.3 fl (6.2-12.0); Monocyte# 0.64 X10^3/uL; Monocyte% 9.2 % (0-10); NRBC Flagged by Analyzer 0 % (0-5); Neutrophil # 4.67 X10^3/uL (2.7-7.7); Neutrophil % 67.3 % (47-70); Platelet Count 135 K/mm3 (150-450); RBC Distribution Width CV 13.9 % (11.6-14.6); RBC Distribution Width SD 49.3 fl (35.1-43.9); Red Blood Count 2.73 M/mm3 (4.6-6.2); White Blood Count 6.9 K/mm3 (4.4-11.0)
[2022-04-25 05:34] LABS: ALB/GLOB Ratio 0.7 RATIO (0.9-2.4); AST(SGOT) 233 U/L (15-37); Alanine Aminotransfer ALT/SGPT 101 U/L (16-61); Albumin, Serum 2.2 g/dL (3.2-5.0); Alkaline Phosphatase 66 U/L (45-117); Anion Gap 12 (5-15); BUN 79 mg/dL (7-18); BUN/Creat Ratio 8.5 RATIO (10-20); Chloride 95 mmol/L (98-107); EST Glomerular Filtration Rate 6 mL/min (>60); Est Glom Filt Rate - Afr Amer 7 mL/min (>60); Estimated Creatinine Clearance 6.84 ml/min; Globulin 3.1 g/dL (2.2-4.2); Glucose 78 mg/dL (74-106); Potassium 5.3 mmol/L (3.5-5.1); Protein, Total 5.3 g/dL (6.4-8.2); Sodium Level 131 mmol/L (136-145)
[2022-04-25 05:36] VITALS: BP 121/53; PULSE 64
[2022-04-25] MEDS: hydrALAZINE 25 MG Tablet PO (05:36)
[2022-04-25] MEDS: Acetaminophen 500 MG Tablet 1000 MG PO ×2 (05:36→14:06)
[2022-04-25 06:26] LABS: Bedside Glucose 88 mg/dL (74-106)
--- NOTE | 2022-04-25 07:48 | PCM.TXEXTCAR ---
Diet Diet Order/Speech Therapy: 04/19/22 19:38 Diet: Renal - General Food consistency:: Regular Liquid Consistency:: Regular/Thin Dietary Modifications:: Consistent Carbohydrate Type of Dietary Supplement:: Ensure Plus High Protein Is pt able to select menu?: Yes Diet Comments: 4oz chocolate w/ meals Routine Orders/Code Status Suppository Type: Dulcolax 10mg Suppository Frequency: Daily PRN Keep PO Greater than or Equal to (%): 94 Routine Lab Work: CBC (within 3 days) and - (CMP within 3 days) Code Status: Full Code Wound(s) LEFT UPPER BACK/SCAPULA: Wound Type: blister COCCYX: Wound Type: Pressure Injury BLE: Wound Type: scattered scabs Therapies Weight Bearing: Weight bearing as tolerated Physical Therapy: Eval and Treat Occupational Therapy: Eval and Treat Problem/Diagnosis (1) Generalized weakness: Status: Acute Code(s): R53.1 - Weakness Plan 1. Acute mild sigmoid diverticulitis 2. Acute on chronic debility, status post mechanical fall 3. CAD status post CABG 4. PAD status post bilateral lower extremity angioplasties 5. Hyperlipidemia 6. Hypertension 7. History of left parietal CVA 8. H/o SDH/intraventricular hemorrhage 9. Type II DM 10. ESRD on HD 11. Anemia of chronic kidney disease, Hb appears to be stable 12. Abnormal pelvic/femoral x-rays with evidence of multiple translucencies 13. GERD, on PPI Allergies/Procedures Done in Hospital Allergies No Known Allergies Allergy (Verified 04/19/22 15:34) Procedures: None Type of Care/Length of Stay Estimated LOS: Convalescent Care Less Than 30 days Type of Care Needed: Skilled Rehab Potential: Good Prognosis: Good Additional Orders/Day of Discharge Day of Discharge: 04/23/22 Dietary and Speech Recommendations Dietitian Recommendations/Changes: Continue renal-general/consistent carbohydrate diet with ensure plus high protein 120mL TID w/ meals. Clement as needed for wound healing, will defer for now since patient is taking ensure plus high protein at this time. Discharge Plan Admission Admit Date/Time: 04/19/22 17:24 Primary Reason for Your Visit: Debility Attending Provider: Sienna Ro Primary Care Provider: Care Physician,No Primary Consulting Providers: Renuka Middleton ; Uche Jones ; Asim Timmons Instructions Patient Instructions: ED Fall with Uncertain Cause, ED Weakness (Uncertain Cause) Additional Instructions / Restrictions: Dialysis as scheduled. Follow-up with nephrology as scheduled. Discharge Orders/Prescriptions Prescriptions: New amoxicillin-pot clavulanate [Augmentin] 500-125 mg tablet 1 tab PO BID 7 Days Qty: 14 0RF Continued Finasteride 5 MG tablet 5 mg PO DAILY fenofibrate micronized 67 MG capsule 67 mg PO DAILY atorvastatin 80 MG tablet 80 mg PO QHS amlodipine 5 MG tablet 5 mg PO DAILY aspirin 81 MG tablet,chewable 81 mg PO DAILY@0800 levetiracetam 500 MG tablet 500 mg PO BID carvedilol 12.5 MG tablet 12.5 mg PO BID calcium acetate(phosphat bind) 667 MG capsule 667 mg PO TIDCM hydralazine 25 MG tablet 25 mg PO TID tamsulosin 0.4 MG capsule 0.8 mg PO QHS pantoprazole 40 MG tablet 40 mg PO DAILY losartan 50 mg tablet 50 mg PO DAILY melatonin 5 mg capsule 6 mg PO QHS polyethylene glycol 3350 [Miralax] 17 gram/dose powder 17 g PO DAILY senna 8.6 mg capsule 8.6 mg PO DAILY Referrals / Follow Up: Asim Timmons MD [Med Staff - Consulting] - Within 2 Weeks Yuliana Wilder MD [Med Staff - Active Staff] - Within 2 Weeks (Abnormal translucencies seen on pelvic and hio x-rays) Care Physician,No Primary [Primary Care Provider] - In 1 Week Doctor,Your [Non-Staff] - 3-5 Days Disposition Disposition (needs filled in before D/C Order can be placed): Custodial Facility
--- NOTE | 2022-04-25 07:51 | PCM.DC.SUM ---
Providers Date of Admission: 04/19/22 Date of Discharge: 04/25/22 Primary Care Physician: Nelida Primary Care Phys Consultations 04/22/22 07:50 Consult: Nephrology Routine Consulting Provider: Asim Timmons Reason for Consult: ESRD on HD, maintenance dialysis EMERGENT Consult: No MD Notified: Yes Date Notified: 04/22/22 Time Notified: 08:57 Method of Notification: office Reason For Visit: [place], FTT ADULT Diagnosis Discharge Diagnosis (1) Generalized weakness: Status: Acute Code(s): R53.1 - Weakness Plan 1. Acute mild sigmoid diverticulitis 2. Acute on chronic debility, status post mechanical fall 3. CAD status post CABG 4. PAD status post bilateral lower extremity angioplasties 5. Hyperlipidemia 6. Hypertension 7. History of left parietal CVA 8. H/o SDH/intraventricular hemorrhage 9. Type II DM 10. ESRD on HD 11. Anemia of chronic kidney disease, Hb appears to be stable 12. Abnormal pelvic/femoral x-rays with evidence of multiple translucencies 13. GERD, on PPI Medications at Discharge Home Medications Finasteride 5 mg PO DAILY PROSTATE 07/30/19 aspirin 81 mg chewable tablet 81 mg PO DAILY@0800 HEALTH MAINTENANCE 05/26/20 atorvastatin 80 mg tablet 80 mg PO QHS CHOLESTEROL 05/26/20 levetiracetam 500 mg tablet 500 mg PO BID SEIZURES 05/26/20 fenofibrate micronized 67 mg capsule 67 mg PO DAILY CHOLESTEROL 06/08/20 calcium acetate(phosphat bind) 667 mg capsule 667 mg PO TIDCM 07/12/20 pantoprazole 40 mg tablet,delayed release 40 mg PO DAILY GERD 07/24/20 tamsulosin 0.4 mg capsule 0.8 mg PO QHS PROSTATE 07/24/20 melatonin 5 mg capsule 6 mg PO QHS 12/13/20 polyethylene glycol 3350 17 gram/dose oral powder (Miralax) 17 g PO DAILY 12/13/20 sennosides 8.6 mg capsule (senna) 8.6 mg PO DAILY 12/13/20 amoxicillin 500 mg-potassium clavulanate 125 mg tablet (Augmentin) 1 tab PO BID 7 days #14 tabs 04/24/22 Hospital Course Operations None Procedures None and 2-D Echocardiogram Summary of Care Provided Minutes Spent on Discharge: 35 Hospital Course: 71-year-old male with past medical history of CAD status post CABG, PCI, hypertension, type II DM, hyperlipidemia who comes in with complaints of bilateral knee pain left more than right after falling. Patient is unable to do his activities or ADLs after his fall. In the emergency room, his vitals were stable. Chest x-ray and knee x-rays as well as tibia-fibula x-rays were unremarkable. Patient was admitted for long-term home placement. He received dialysis during his stay in the [facility] floor. Patient remained relatively asymptomatic throughout his stay. He complained of left lower quadrant pain. CT of the abdomen and pelvis showed sigmoid diverticulitis, mild. Patient was started on IV Unasyn. He was discharged on Augmentin to complete 1 week of antibiotics. During the hospital stay, patient's blood pressure was relatively low. He was taken off all blood pressure medication. He had an episode of chest pain and work-up including 2D echo were unremarkable. Patient was discharged to long-term facility in a stable state. He was discharged not on blood pressure medication. A note was sent with him to his doctors in the long-term facility to slowly introduce his antihypertensives if his blood pressures are improved On the day of discharge, patient was seen and examined. Denied any new complaints except for mild LLQ abdominal discomfort. Physical Exam Narrative Physical exam: General: Alert, Oriented x3, Cooperative, appears frail HEENT: Atraumatic Oral: Moist Mucosa Neck: Supple Lungs: Clear to auscultation Cardiovascular: HS I+II, regular, no murmurs Abdomen: Bowel Sounds Present, Soft, Non Tender Extremities: No bilateral pedal edema, tenderness on palpation left pelvic region Skin: No rashes, No breakdown Neurological: Grossly intact Psych/Mental Status: Appropriate Weight / BMI Weight Weight: 74.571 kg Body Mass Index (BMI) 24.0 ABG / Lab / Microbiology Data Result Diagrams: 04/25/22 04:16 04/25/22 04:16 Laboratory: Laboratory Results - last 24 hr 04/24/22 07:25: Troponin I High Sens 132 H* 04/24/22 11:04: Troponin I High Sens 134 H* 04/24/22 11:59: POC Glucose 107 H 04/24/22 16:21: POC Glucose 76 04/24/22 20:28: POC Glucose 79 04/25/22 04:16: WBC 6.9, RBC 2.73 L, Hgb 8.6 L, Hct 26.6 L, MCV 97.4 H, MCH 31.5, MCHC 32.3, RDW Std Deviation 49.3 H, RDW Coeff of Arturo 13.9, Plt Count 135 L, MPV 10.3, Immature Gran % (Auto) 0.900, Neut % (Auto) 67.3, Lymph % (Auto) 18.0 L, [place] % (Auto) 9.2, Eos % (Auto) 4.2, Baso % (Auto) 0.4, Absolute Neuts (auto) 4.7, Absolute Lymphs (auto) 1.25, Nucleated RBC % 0 04/25/22 04:16: Sodium 131 L, Potassium 5.3 H, Chloride 95 L, Carbon Dioxide 24.0, Anion Gap 12, BUN 79 H, Creatinine 9.30 H*, Estim Creat Clear Calc 6.84, Est GFR (MDRD) Af Amer 7 L, Est GFR (MDRD) Non-Af 6 L, BUN/Creatinine Ratio 8.5 L, Glucose 78, Calcium 8.0 L, Total Bilirubin 0.60, AST 233 H, ALT 101 H, Alkaline Phosphatase 66, Total Protein 5.3 L, Albumin 2.2 L, Globulin 3.1, Albumin/Globulin Ratio 0.7 L 04/25/22 05:35: POC Glucose 88 Microbiology: Microbiology 04/24/22 12:00 Nasal Secretion SARS-CoV-2 Antigen (Rapid) - Final Radiography Diagnostic Testing: Radiology Impression Echocardiogram 04/24/22 10:44 Interpretation Summary Normal LV size. Left ventricular systolic function is normal. The estimated ejection fraction is 60 %. Moderate concentric left ventricular hypertrophy. Pulmonary artery systolic pressure is 46 mmHg. Mean aortic valve gradient 20 mmHg. Mild to moderate aortic stenosis. Ordering Physician: Sienna Ro Referring Physician: NO PCP GIVEN Performed By: Jenny Gomez RCS Abdomen/Pelvis CT 04/24/22 13:35 IMPRESSION: Mild degree of sigmoid diverticulitis. Distended urinary bladder. Prostatic enlargement. Multiple small gallstones. Left renal cyst. Electronically Signed: Attila Cabello MD at 13:57 EDT , D/C Instructions Discharge Diet: Low fat / Low cholesterol and 2000 mg Sodium Diet Discharge Activity: Return to Normal Activity Meaningful Use Info Meaningful Use Diagnoses (Choose all that apply): None applicable Discharge Plan Admission Admit Date/Time: 04/19/22 17:24 Primary Reason for Your Visit: Debility Attending Provider: Sienna Ro Primary Care Provider: Care Physician,No Primary Consulting Providers: Renuka Middleton ; Uche Jones ; Asim Timmons Instructions Patient Instructions: ED Fall with Uncertain Cause, ED Weakness (Uncertain Cause) Additional Instructions / Restrictions: Dialysis as scheduled. Follow-up with nephrology as scheduled. Patient's anti-hypertensives were held during this hospital stay. Consider resuming when BP improves. Discharge Orders/Prescriptions Prescriptions: New amoxicillin-pot clavulanate [Augmentin] 500-125 mg tablet 1 tab PO BID 7 Days Qty: 14 0RF Continued Finasteride 5 MG tablet 5 mg PO DAILY fenofibrate micronized 67 MG capsule 67 mg PO DAILY atorvastatin 80 MG tablet 80 mg PO QHS aspirin 81 MG tablet,chewable 81 mg PO DAILY@0800 levetiracetam 500 MG tablet 500 mg PO BID calcium acetate(phosphat bind) 667 MG capsule 667 mg PO TIDCM tamsulosin 0.4 MG capsule 0.8 mg PO QHS pantoprazole 40 MG tablet 40 mg PO DAILY melatonin 5 mg capsule 6 mg PO QHS polyethylene glycol 3350 [Miralax] 17 gram/dose powder 17 g PO DAILY senna 8.6 mg capsule 8.6 mg PO DAILY Discontinued amlodipine 5 MG tablet 5 mg PO DAILY carvedilol 12.5 MG tablet 12.5 mg PO BID hydralazine 25 MG tablet 25 mg PO TID losartan 50 mg tablet 50 mg PO DAILY Referrals / Follow Up: Asim Timmons MD [Med Staff - Consulting] - Within 2 Weeks Yuliana Wilder MD [Med Staff - Active Staff] - Within 2 Weeks (Abnormal translucencies seen on pelvic and hio x-rays) Care Physician,No Primary [Primary Care Provider] - In 1 Week Doctor,Your [Non-Staff] - 3-5 Days Disposition Disposition (needs filled in before D/C Order can be placed): Long Term Facility Charges/Coding Visit Charges OBSV E&M: 94249 Observation care discharge
[2022-04-25 07:54] VITALS: PULSE 57
[2022-04-25 09:00] VITALS: BP 120/51; PULSE 60; RESP 16; TEMP 36.7; O2SAT 98
--- NOTE | 2022-04-25 11:01 | DIALYSIS ---
Hemodialysis x 2hrs today. Pt refused to run full tx. Pt educated on the need for full tx but still refused. Dr Jones notified that pt refused to complete tx. UF-1.2mL removed. [place] pulled stasis of sites and dressings applied. Pt stable and alert. Report to CASSANDRA Mcclellan
[2022-04-25] MEDS: Fenofibrate 48 MG Tablet PO (11:14)
[2022-04-25] MEDS: Heparin Injection (Vial) 5,000 UNIT/ML VIAL 5000 UNIT SC (11:14)
[2022-04-25] MEDS: Calcium Acetate 667 MG Capsule PO ×2 (11:14→15:58)
[2022-04-25] MEDS: Aspirin 81 MG TAB.CHEW PO (11:14)
[2022-04-25] MEDS: Finasteride 5 MG Tablet PO (11:14)
[2022-04-25] MEDS: levETIRAcetam 500 MG Tablet PO (11:14)
[2022-04-25] MEDS: Pantoprazole Sodium 40 MG Tablet PO (11:14)
[2022-04-25] MEDS: Menthol/Lanolin/Calamine/Znox 113 GM Tube 1 APPLIC TOPICAL (11:16)
[2022-04-25 11:45] LABS: Bedside Glucose 75 mg/dL (74-106)
[2022-04-25 12:10] LABS: Albumin 2.8 g/dL (2.9-4.4); Alpha-1-Globulins 0.3 g/dL (0.0-0.4); Alpha-2-Globulins 0.7 g/dL (0.4-1.0); Free Kappa Light Chains 139.3 mg/L (3.3-19.4); Free Lambda Light Chains 106.2 mg/L (5.7-26.3); Gamma Globulin 1.1 g/dL (0.4-1.8); Immunoglobulin A 168 mg/dL (61-437); Immunoglobulin G 858 mg/dL (603-1613); Immunoglobulin M 26 mg/dL (15-143); PROEL- TOTAL PROTEIN 5.5 g/dL (6.0-8.5)
[2022-04-25 12:11] LABS: PSA, Free 0.18 ng/mL; PSA, Free % 32.4 % (.); PSA, Total Ultrasensitive 0.556 ng/mL (0.000-4.000)
[2022-04-25 13:17] VITALS: PULSE 60
[2022-04-25 13:51] VITALS: BP 99/42; PULSE 66; RESP 16; TEMP 36.5; O2SAT 98
--- NOTE | 2022-04-25 15:29 | CASEMGMT ---
Social Work SW set up cot transportation through [employer] for 5:30pm. SW in to pt room to inform of transport time. Pt voiced understanding. Declined SW to call family as pt was on phone with family while SW in room. Pt spoke to family on phone and discussed discharge/transfer. SW notified nurse of transport time. SW notified [facility] of transport time and faxed discharge orders via [facility]. Copies of orders placed on chart, originals sent with pt in envelope. Disposition: [facility], Skilled level of care GOLDIE Sanderson
--- NOTE | 2022-04-25 16:19 | CHAPLAIN ---
Type of Pastoral Visit _x__ Initial Visit ___ Follow-up Visit ___ On-call Visit ___ General Patient Visit ___ Spiritual Assessment ___ Family Conference ___ Bereavement ___ Rapid Response ___ Code Blue ___ Other (describe below) Pastoral Care Referral From _x__ Patient ___ Family ___ Nurse ___ Physician ___ Wax Pattern Assembler ___ Store Operations Manager ___ Other (describe below) Sacrament/Intervention _x__ Active listening ___ Anointing ___ Sabianism ___ Bereavement ___ Communion _x__ Linda exploration ___ _x__ Life review _x__ Prayer ___ Reconciliation ___ Sacrament of Sick _x__ Supportive presence ___ Wedding ___ Other (describe below) Pastoral Comments patient welcomes this visit; pt states his recent health history and need to go to SNF for therapy; pt concerned about getting home to who takes excellent care for me; pt talks about his life and receives support easily; 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
[2022-04-25 16:56] LABS: Bedside Glucose 100 mg/dL (74-106)
== END 2022-04-25 17:15 | disposition skilled nursing facility (03) ==
LOC: ED 17:07 → MS3 17:35
PROVIDERS: Hospitalist; Internal Medicine; Admitting Provider Family Medicine; Emergency Provider Emergency Medicine; Visit Provider Internal Medicine
DX: K57.32 Diverticulitis of large intestine without perforation or abscess without bleeding (principal); E11.51 Type 2 diabetes mellitus with diabetic peripheral angiopathy without gangrene; Z99.2 Dependence on renal dialysis; E11.22 Type 2 diabetes mellitus with diabetic chronic kidney disease; I12.0 Hypertensive chronic kidney disease with stage 5 chronic kidney disease or end stage renal disease; N18.6 End stage renal disease; G40.909 Epilepsy, unspecified, not intractable, without status epilepticus; R53.1 Weakness; S80.02XD Contusion of left knee, subsequent encounter; Z86.16 Personal history of COVID-19; N40.1 Benign prostatic hyperplasia with lower urinary tract symptoms; I25.10 Atherosclerotic heart disease of native coronary artery without angina pectoris; S80.812A Abrasion, left lower leg, initial encounter; Z79.82 Long term (current) use of aspirin; R07.9 Chest pain, unspecified; D63.1 Anemia in chronic kidney disease; E78.5 Hyperlipidemia, unspecified; Z86.73 Personal history of transient ischemic attack (TIA), and cerebral infarction without residual deficits; S80.811A Abrasion, right lower leg, initial encounter; Z87.891 Personal history of nicotine dependence; N13.8 Other obstructive and reflux uropathy; Z79.899 Other long term (current) drug therapy; W19.XXXA Unspecified fall, initial encounter
CPT/HCPCS: 36415; 71045; 71046; 73502; 73560; 73590; 74176; 80053; 82784; 82962; 83883; 84153; 84154; 84165; 84484; 85025; 86334; 87426; 90937; 93005; 93306; 96365; 96366; 96372; 96375; 97110; 97116; 97162; 97166; 97530; 97535; 97802; 99218; 99251; 99285; J7030; A4216; G0257; G0378; G0463; J0295; J2405

== ENCOUNTER → 2022-05-10 | Outpatient (REF) | payer MEDICARE, SELFPAY ==
[2022-05-10 08:43] LABS: Cholesterol 101 mg/dL (200); High Density Lipoprotein 28 mg/dL; Triglycerides 123 mg/dL; Very Low Density Lipoprotein 25 mg/dL (5-40)
== END ==
LOC: OLS.WHLTCC 05:00
PROVIDERS: Visit Provider Family Medicine
DX: N18.6 End stage renal disease (principal); I69.354 Hemiplegia and hemiparesis following cerebral infarction affecting left non-dominant side; M25.562 Pain in left knee; R62.7 Adult failure to thrive; M62.81 Muscle weakness (generalized); R26.2 Difficulty in walking, not elsewhere classified
CPT/HCPCS: 36415; 80061

== ENCOUNTER 2022-05-15 08:19 | Emergency (ER) | payer MEDICARE, SELFPAY ==
[2022-05-15 08:20] VITALS: BP 163/63; PULSE 64; RESP 16; TEMP 36.4; O2SAT 96; BMI 24.3
[2022-05-15 08:24] VITALS: BP 163/63; PULSE 64; RESP 16; TEMP 36.4; O2SAT 96
--- NOTE | 2022-05-15 08:38 | CT_ITS ---
STUDY: CT ABDOMEN AND PELVIS WITHOUT CONTRAST REASON FOR EXAM: Male, 71 years old. Pain RADIATION DOSAGE (If Supplied By Facility): CTDIvol = ( 11.52 ) mGy, DLP = ( 615.97 ) mGycm TECHNIQUE: Transaxial images were obtained from the dome of the diaphragm to the symphysis pubis without oral contrast, and without intravenous contrast. Sagittal and coronal images were reconstructed. Individualized dose optimization techniques were used for this CT. COMPARISON: 04/24/2022 FINDINGS: There is grossly stable mild bronchiectasis within the visualized lower lobes. There is a small left pleural effusion. There are coronary artery calcifications. The lack of intravenous contrast limits evaluation of solid visceral organs. There are low-attenuation foci within a heterogenous liver. There are gallstones within the gallbladder. Normal spleen. Normal pancreas. Normal bilateral adrenal glands. Normal right kidney. There is a left renal cyst. Normal visualized stomach. Normal small intestine. There are multiple colonic diverticula consistent with diverticulosis. The appendix is visualized and appears normal. There is diffuse atherosclerotic calcification of the abdominal aorta, without a demonstrated aneurysm. Normal inferior vena cava. Normal retroperitoneum. There is focal thickening within the left lateral and anterior bladder wall. There is enlargement of the prostate gland. Normal abdominal wall. There are diffuse degenerative changes of the visualized lumbar spine. There are radiolucencies within the bony pelvis associated with cortical loss within the left iliac wing. There is a sclerotic focus within the left iliac wing as well. There are indeterminate radiolucencies within the visualized proximal femurs as well. CT/Abdomen/Pelvis without Cont IMPRESSION: Focal bladder wall thickening may be secondary to underlying scarring, cannot exclude a neoplastic process. Heterogenous liver, may be artifactual however cannot exclude underlying lesions, recommend ultrasound for further evaluation. Indeterminate radiolucencies within the bony pelvis and visualized femurs, concerning for a neoplastic process given the cortical loss within the left iliac wing. Atherosclerosis. Colonic diverticulosis. Cholelithiasis. Electronically Signed: Elsy Latham MD at 9:42 EDT ,
--- NOTE | 2022-05-15 08:39 | EDS_ITS ---
HPI HPI - GI History of Present Illness Chief Complaint: Abd Pain Detail of Chief Complaint: Aminal pain x2 days Informant: patient Abdominal Pain/Flank Pain Current Severity: 03/20 Narrative Narrative: Patient presents with abdominal pain that started 2 days ago. Patient states it gradually came on. He is never had pain like this before. Patient describes it as left lower quadrant. Patient states pain worse with certain movements. Patient is not had fever or vomiting. He denies diarrhea. He denies blood in his stool or black tarry stool. He denies any trauma. Patient rates his pain an 8 out of 10. Prior similar symptoms: No PFSH PFSH Medical History (Updated 05/15/22 @ 12:[address] 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 Closed intraventricular hemorrhage COVID-19 virus detected (07/24/20) Debility Depression Diabetes mellitus, type 2 Diverticulosis End-stage renal disease on hemodialysis Essential (primary) hypertension Fatigue Frequent falls GERD (gastroesophageal reflux disease) History of CVA (cerebrovascular accident) (08/2017) History of non-ST elevation myocardial infarction (NSTEMI) (07/24/20) Hyperlipidemia Intracerebral hemorrhage Left ventricular hypertrophy Peripheral vascular occlusive disease Problem with dialysis access Right bundle branch block (RBBB) Subdural hematoma (07/22/19) Subdural hemorrhage Tobacco dependence in remission Home Medications Finasteride 5 mg PO DAILY PROSTATE 07/30/19 [History Last Taken 07/24/20] aspirin 81 mg chewable tablet 81 mg PO DAILY@0800 HEALTH MAINTENANCE 05/26/20 [History Last Taken 04/19/22] atorvastatin 80 mg tablet 80 mg PO QHS CHOLESTEROL 05/26/20 [History Last Taken 04/18/22] levetiracetam 500 mg tablet 500 mg PO BID SEIZURES 05/26/20 [History Last Taken 07/24/20] fenofibrate micronized 67 mg capsule 67 mg PO DAILY CHOLESTEROL 06/08/20 [History Last Taken 07/24/20] calcium acetate(phosphat bind) 667 mg capsule 667 mg PO TIDCM 07/12/20 [History Last Taken 07/24/20] pantoprazole 40 mg tablet,delayed release 40 mg PO DAILY GERD 07/24/20 [History Last Taken 07/24/20] tamsulosin 0.4 mg capsule 0.8 mg PO QHS PROSTATE 07/24/20 [History Last Taken 07/23/20] melatonin 5 mg capsule 6 mg PO QHS 12/13/20 [History Last Taken Unknown] polyethylene glycol 3350 17 gram/dose oral powder (Miralax) 17 g PO DAILY 12/13/20 [History Last Taken Unknown] sennosides 8.6 mg capsule (senna) 8.6 mg PO DAILY 12/13/20 [History Last Taken Unknown] amoxicillin 500 mg-potassium clavulanate 125 mg tablet (Augmentin) 1 tab PO BID 7 days #14 tabs 04/24/22 [Rx Last Taken Unknown] Allergy/AdvReac Type Severity Reaction Status Date / Time No Known Allergies Allergy Verified 04/19/22 15:34 Family History Brother Diabetes Mother Hypertension Daughter Diabetes Surgical History (Updated 04/19/22 @ 17:[address] Renuka Middleton MD) H/O coronary artery bypass surgery (11/10/12) History of angioplasty of peripheral vessel (05/16/19) History of coronary artery stent placement (03/28/09) S/P arteriovenous (AV) fistula creation S/p bilateral carpal tunnel release Social History (Updated 04/19/22 @ 15:[address] Nikko Gutierrez MD) household members: spouse Smoking Status: Former smoker alcohol intake: never substance use type: does not use caffeine: No what type of physical activity do you participate in: none frequency: does not exercise ROS ROS ED Review of Systems ROS Unobtainable: other Constitutional Constitutional ED: Reports lethargy; Denies chills, fever(s), sweats or weight loss Eyes Eyes: Denies blurry vision, change in vision or diplopia ENT ENT ED: Denies rhinorrhea or sore throat Cardiovascular Cardiovascular: Denies chest pain, orthopnea or racing heartbeat Respiratory/Chest Respiratory/Chest: Denies cough, dyspnea, dyspnea on exertion, orthopnea or sputum Gastrointestinal Gastrointestinal: Reports abdominal pain; Denies diarrhea, nausea or vomiting Genitourinary Genitourinary ED: Denies dysuria, hematuria or urinary frequency Musculoskeletal Musculoskeletal: Denies arthralgias, back pain, myalgias or neck pain Integumentary Denies abscess, Abrasions or rash Neurologic Neurologic: Denies headache(s) or weakness Psychiatric Psychiatric: Denies anxiety, depression or suicidal thoughts Endocrine Endocrinology: Denies polydipsia, polyphagia or polyuria Hematologic/Lymphatic Hematologic/Lymphatic: Denies easy bleeding, easy bruising or lymphadenopathy Allergic/Immunologic Allergic/Immunologic ED: Denies mouth swelling, tongue swelling or urticaria EXAM Physical Exam Const Vital Signs: 05/15/22 08:20 05/15/22 08:24 05/15/22 09:30 Temperature 97.6 F L 97.6 F L 97.5 F L Temperature Source Oral Oral Oral Pulse Rate 64 64 88 Respiratory Rate 16 16 14 Blood Pressure 163/63 H 163/63 H 122/69 H Blood Pressure Mean 96 96 86 Pulse Ox 96 96 97 Oxygen Delivery Method Room Air Room Air Room Air Positive well nourished and well developed General Appearance ED: well developed and NAD HEENT Reports TM's clear and moist mucous membranes normocephalic and atraumatic; Negative for trauma or tenderness Tympanic Membrane ED: Yes TM's clear Eyes PERRL and EOMs intact bilaterally General Eye ED: Negative for pale conjunctiva or scleral icterus Neck no lymphadenopathy, supple and no JVD General: Negative for tenderness Chest Wall inspection of chest normal and palpation of chest normal Chest: Negative for tenderness Resp normal respiratory effort and clear to auscultation bilaterally Effort and Inspection: Negative for respiratory distress or pain with movement Auscultation: Negative for rhonchi, wheezes or diminished lung sounds Cardio regular rate, regular rhythm, S1 normal heart sound and S2 normal heart sound Cardio Narrative: 2 out of 6 systolic ejection murmur Peripheral Pulses: pulses 2+ throughout GI normal to inspection, nondistended, normoactive bowel sounds, soft to palpation, non-distended and no masses GI Narrative: Tender to palpation over the left lower quadrant with guarding. There is no rebound, rigidity, or peritoneal signs Back/Spine no CVA tenderness and no thoracic nor lumbar tenderness Extremity normal to inspection General Extremety ED: Negative for edema General Extremity: Negative for edema Neuro oriented x3, CN's II-XII intact bilaterally, no sensory deficits noted and gait normal Sensorium / Orientation: awake, alert, oriented to person, oriented to place and oriented to time Motor Exam: strength 5/5 throughout and strength abnormal Psych mental status grossly normal Skin no rashes or lesions noted and no wounds MDM MDM MDM Narrative Medical decision making narrative: IV line established on arrival. Lab work-up obtained was essentially unremarkable other than a BUN of 46 and a creatinine of 8.55. Patient did miss dialysis today but is scheduled again to be dialyzed in [address] scan of the abdomen pelvis was read by radiology as thickening of the bladder which could represent scarring versus neoplastic process and he is daughter does state that he had surgery on his bladder not too long ago. Patient also was noted to have changes within the bony pelvis and femurs concerning for bony metastasis. Patient's daughter also aware of these findings and patient is scheduled to follow-up with oncology. At this point patient is feeling comfortable not requesting anything for pain. He says at rest he really does not have any pain currently. He will be discharged to home with advised to follow-up with primary care physician as well as with oncology. Patient discharged to home in stable condition. Lab Data Attestation: I reviewed the patient's lab results. Labs: Laboratory Results - last 24 hr 05/15/22 05/15/22 05/15/22 09:10 09:10 09:10 WBC 8.1 RBC 2.91 L Hgb 9.3 L Hct 29.8 L MCV 102.4 H MCH 32.0 MCHC 31.2 L RDW Std Deviation 55.5 H RDW Coeff of Arturo 14.7 H Plt Count 240 MPV 8.9 Immature Gran % (Auto) 0.500 Neut % (Auto) 68.0 Lymph % (Auto) 15.6 L Scurry % (Auto) 9.0 Eos % (Auto) 6.2 H Baso % (Auto) 0.7 Absolute Neuts (auto) 5.5 Absolute Lymphs (auto) 1.27 Nucleated RBC % 0 Sodium 142 Potassium 4.3 Chloride 102 Carbon Dioxide 34.0 H Anion Gap 6 BUN 46 H Creatinine 8.55 H* Estim Creat Clear Calc 7.44 Est GFR (MDRD) Af Amer 8 L Est GFR (MDRD) Non-Af 7 L BUN/Creatinine Ratio 5.4 L Glucose 91 Lactic Acid 1.0 Calcium 8.5 Urine Color Urine Clarity Urine pH Ur Specific [place] Urine Protein Urine Glucose (UA) Urine Ketones Urine Occult Blood Urine Nitrite Urine Bilirubin Urine Urobilinogen Ur Leukocyte Esterase Urine RBC Urine WBC Ur Squamous Epith Cells Urine Bacteria Urine Mucus 05/15/22 11:10 WBC RBC Hgb Hct MCV MCH MCHC RDW Std Deviation RDW Coeff of Arturo Plt Count MPV Immature Gran % (Auto) Neut % (Auto) Lymph % (Auto) Scurry % (Auto) Eos % (Auto) Baso % (Auto) Absolute Neuts (auto) Absolute Lymphs (auto) Nucleated RBC % Sodium Potassium Chloride Carbon Dioxide Anion Gap BUN Creatinine Estim Creat Clear Calc Est GFR (MDRD) Af Amer Est GFR (MDRD) Non-Af BUN/Creatinine Ratio Glucose Lactic Acid Calcium Urine Color Yellow Urine Clarity Clear Urine pH 8.0 Ur Specific [place] 1.010 Urine Protein 100 H Urine Glucose (UA) 100 H Urine Ketones Negative Urine Occult Blood 50 H Urine Nitrite Negative Urine Bilirubin Negative Urine Urobilinogen Normal Ur Leukocyte Esterase Negative Urine RBC 0-5 SEEN Urine WBC 0-5 SEEN Ur Squamous Epith Cells 0 SEEN Urine Bacteria 0 SEEN Urine Mucus 0 SEEN Radiography Diagnostic Testing: Clinical Impression(s) from Imaging Studies Abdomen/Pelvis CT 05/15/22 08:38 IMPRESSION: Focal bladder wall thickening may be secondary to underlying scarring, cannot exclude a neoplastic process. Heterogenous liver, may be artifactual however cannot exclude underlying lesions, recommend ultrasound for further evaluation. Indeterminate radiolucencies within the bony pelvis and visualized femurs, concerning for a neoplastic process given the cortical loss within the left iliac wing. Atherosclerosis. Colonic diverticulosis. Cholelithiasis. Electronically Signed: Elsy Latham MD at 9:42 EDT , Discharge Plan Triage Chief Complaint: Abd Pain ED Provider: Sharri Nascimento Dx/Rx/DC Orders Clinical Impression: Abdominal pain Instructions: ED Abdominal Pain Unkn Cause Male... Prescriptions: No Action Finasteride 5 MG tablet 5 mg PO DAILY fenofibrate micronized 67 MG capsule 67 mg PO DAILY atorvastatin 80 MG tablet 80 mg PO QHS aspirin 81 MG tablet,chewable 81 mg PO DAILY@0800 levetiracetam 500 MG tablet 500 mg PO BID calcium acetate(phosphat bind) 667 MG capsule 667 mg PO TIDCM tamsulosin 0.4 MG capsule 0.8 mg PO QHS pantoprazole 40 MG tablet 40 mg PO DAILY amoxicillin-pot clavulanate [Augmentin] 500-125 mg tablet 1 tab PO BID 7 Days Qty: 14 0RF melatonin 5 mg capsule 6 mg PO QHS polyethylene glycol 3350 [Miralax] 17 gram/dose powder 17 g PO DAILY senna 8.6 mg capsule 8.6 mg PO DAILY Primary Care Provider: Care Physician,No Primary Referrals: Joni Gonzalez MD [Non-Staff] - 3-5 Days Care Physician,No Primary [Primary Care Provider] - Disposition Disposition: Home, Self Care
[2022-05-15 09:23] LABS: Absolute Lymphocyte Count 1.27 X10^3/uL (0.83-4.51); Absolute Neutrophil Count 5.5 X10^3/uL (2.0-7.7); Basophil# 0.06 X10^3/uL; Basophil% 0.7 % (0-1); Eosinophils% 6.2 % (0-5); Hematocrit 29.8 % (40-54); Hemoglobin 9.3 g/dL (13.0-16.5); Lymphocyte # 1.27 X10^3/ul (0.83-4.51); Lymphocyte % 15.6 % (19-41); Mean Corp Hgb Conc 31.2 g/dL (32-36); Mean Corpuscular Volume 102.4 fL (80-94); Mean Platelet Vol. 8.9 fl (6.2-12.0); Monocyte# 0.73 X10^3/uL; NRBC Flagged by Analyzer 0 % (0-5); Neutrophil # 5.52 X10^3/uL (2.7-7.7); Platelet Count 240 K/mm3 (150-450); RBC Distribution Width CV 14.7 % (11.6-14.6); RBC Distribution Width SD 55.5 fl (35.1-43.9); Red Blood Count 2.91 M/mm3 (4.6-6.2); White Blood Count 8.1 K/mm3 (4.4-11.0)
[2022-05-15 09:30] VITALS: BP 122/69; PULSE 88; RESP 14; TEMP 36.4; O2SAT 97
[2022-05-15] MEDS: 0.9% Normal Saline 1,000 ML 125 ML IV (09:37)
[2022-05-15 09:48] LABS: Anion Gap 6 (5-15); BUN 46 mg/dL (7-18); BUN/Creat Ratio 5.4 RATIO (10-20); Calcium,Total 8.5 mg/dL (8.5-10.1); Chloride 102 mmol/L (98-107); Creatinine, Serum 8.55 mg/dL (0.70-1.30); EST Glomerular Filtration Rate 7 mL/min (>60); Est Glom Filt Rate - Afr Amer 8 mL/min (>60); Estimated Creatinine Clearance 7.44 ml/min; Glucose 91 mg/dL (74-106); Potassium 4.3 mmol/L (3.5-5.1); Sodium Level 142 mmol/L (136-145)
[2022-05-15 11:20] LABS: Bacteria 0 SEEN /hpf (None Seen); Mucous, Urine 0 SEEN /hpf (<or=2+); Squamous Epithelial Cells - UA 0 SEEN /hpf (0-5)
[2022-05-15 11:31] LABS: Color, Urine Yellow (Yellow); Glucose, Dipstick 100 mg/dl (Normal); Ketone-Dipstick Negative (Negative); Leukocyte Esterase-Dipstick Negative /ul (Negative); Nitrite-Dipstick Negative (Negative); Occult Blood-Urine 50 /ul (Negative); Protein-Dipstick 100 mg/dl (Negative); Urine Bilirubin Dipstick Negative (Negative); Urine Urobilinogen Normal (Normal)
[2022-05-15 11:37] LABS: Urine Clarity Clear (Clear)
[2022-05-15 11:41] LABS: Red Blood Cells-Urine 0-5 SEEN /hpf (0-5); White Blood Cells 0-5 SEEN /hpf (0-5)
--- NOTE | 2022-05-15 12:23 | NURSING ---
SPOKE WITH [facility]E [facility], 45MIN ETA FOR PT TO GET BACK TO [facility]
[2022-05-15 13:31] VITALS: BP 141/67; PULSE 89; RESP 16; O2SAT 95
== END 2022-05-15 13:31 | disposition home or self-care (01) ==
PROVIDERS: Emergency Provider Emergency Medicine; Visit Provider Emergency Medicine
DX: R10.9 Unspecified abdominal pain (principal); E11.22 Type 2 diabetes mellitus with diabetic chronic kidney disease; N18.6 End stage renal disease; I12.0 Hypertensive chronic kidney disease with stage 5 chronic kidney disease or end stage renal disease; Z87.891 Personal history of nicotine dependence; I25.10 Atherosclerotic heart disease of native coronary artery without angina pectoris; E78.5 Hyperlipidemia, unspecified; R93.41 Abnormal radiologic findings on diagnostic imaging of renal pelvis, ureter, or bladder
CPT/HCPCS: 74176; 80048; 81001; 83605; 85025; 99285; P9612

== ENCOUNTER → 2022-05-28 | Outpatient (CLI) | payer MEDICARE, SELFPAY ==
--- NOTE | 2022-05-28 08:25 | NM_ITS ---
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 WHOLE BODY 99m Tc MDP RADIONUCLIDE BONE SCINTIGRAPHY COMPARISON: CT of the abdomen-pelvis report 05/15/2022 FINDINGS: Following the intravenous administration of 27.0 mCi of 99m Tc MDP, whole body bone images reveal: 1. Increased tracer uptake is defined in the acromioclavicular and sternoclavicular compartments of both shoulders, the mid cervical spine posteriorly on the right, the fifth lumbar vertebra posteriorly on the right, the bilateral knees, the ankle articulations bilaterally. 2. The remaining skeletal structures are scintigraphically unremarkable with normal-appearing renal images and urinary bladder activity identified. NM/Bone Scan Whole Body IMPRESSION: 1. The increase in tracer concentration defined in the cervical and lumbar spine, both shoulders and knees, the ankle articulations is commensurate with degenerative arthrosis. 2. Primarily lytic change in bone is best assessed with FDG PET CT imaging as conventional bone scintigraphy demonstrates excellent sensitivity for osteoblastic metastasis and a high false negative rate in primarily lytic presentations. (Vinay et al, Clin Nucl Med 5: 299,1980). Electronically Signed: Marc Velez, at 22:02 EDT ,
--- NOTE | 2022-05-28 08:25 | US_ITS ---
STUDY: ABDOMINAL ULTRASOUND - RIGHT UPPER QUADRANT REASON FOR VISIT: Male, 71 years old abnormal LFTs. Lesions seen on prior CT. TECHNIQUE: Ultrasound evaluation of the right upper quadrant was performed with real-time and static gaspar-scale imaging. TECHNICAL QUALITY: Examination limited due to a combination of factors including patient condition and bowel gas. COMPARISON: CT of the abdomen and pelvis, 05/15/2022 FINDINGS: Liver: The liver measures 13 point for cm. There is normal echogenicity of the liver. The bile ducts are within normal limits. There is hepatic color flow. The direction of portal flow is hepatopetal. There is no demonstrated mass lesion. Gallbladder: Normal distended gallbladder. The gallbladder wall measures 1.8 mm. There is a negative sonographic Duque''s sign. There is no pericholecystic fluid. Multiple mobile gallstones. There is also question of a collar or adherent stone. Common Bile Duct (C.B.D.): The common bile duct measures 2.6 mm. Pancreas: There is nonvisualization of the pancreas. Right Kidney: Normal size of the right kidney. The right kidney measures 9.5 cm. Normal renal cortex. The right cortex measures 1.3 cm. There is no demonstrated renal mass or cyst. There is no right hydronephrosis. US/Liver IMPRESSION: 1. Limited study due to bowel gas and the patient''s condition. The pancreas is not visualized. There is limited visualization of the liver. 2. No evidence of focal hepatic mass. 3. Gallstones and gallbladder polyp versus air in stone. There is no evidence of acute cholecystitis. Electronically Signed: Nathaniel Alvarez DO at 17:01 EDT ,
== END | disposition home or self-care (01) ==
LOC: NM 08:21
PROVIDERS: PCP Family Medicine; Referring Provider Internal Medicine Hematology & Oncology; Visit Provider Internal Medicine Hematology & Oncology
DX: R79.89 Other specified abnormal findings of blood chemistry (principal); M47.812 Spondylosis without myelopathy or radiculopathy, cervical region; M47.816 Spondylosis without myelopathy or radiculopathy, lumbar region; M17.0 Bilateral primary osteoarthritis of knee; M19.011 Primary osteoarthritis, right shoulder; M19.012 Primary osteoarthritis, left shoulder
CPT/HCPCS: 76705; 78306; A9503

== ENCOUNTER → 2022-05-29 | Outpatient (REF) | payer MEDICARE, SELFPAY ==
[2022-05-29 09:29] LABS: Absolute Lymphocyte Count 1.84 X10^3/uL (0.83-4.51); Absolute Neutrophil Count 4.6 X10^3/uL (2.0-7.7); Basophil# 0.05 X10^3/uL; Basophil% 0.6 % (0-1); Eosinophil# 0.88 X10^3/uL; Eosinophils% 10.6 % (0-5); Hemoglobin 8.8 g/dL (13.0-16.5); Lymphocyte # 1.84 X10^3/ul (0.83-4.51); Lymphocyte % 22.2 % (19-41); Mean Corp Hgb Conc 31.4 g/dL (32-36); Mean Corpuscular Hgb 33.1 pg (27.0-32.0); Mean Corpuscular Volume 105.3 fL (80-94); Mean Platelet Vol. 9.9 fl (6.2-12.0); Monocyte# 0.87 X10^3/uL; Monocyte% 10.5 % (0-10); NRBC Flagged by Analyzer 0 % (0-5); Neutrophil # 4.61 X10^3/uL (2.7-7.7); Neutrophil % 55.7 % (47-70); Platelet Count 161 K/mm3 (150-450); RBC Distribution Width CV 15.8 % (11.6-14.6); RBC Distribution Width SD 60.1 fl (35.1-43.9); Red Blood Count 2.66 M/mm3 (4.6-6.2); White Blood Count 8.3 K/mm3 (4.4-11.0)
[2022-05-29 10:31] LABS: Anion Gap 8 (5-15); BUN 39 mg/dL (7-18); BUN/Creat Ratio 5.2 RATIO (10-20); Calcium,Total 8.5 mg/dL (8.5-10.1); Chloride 103 mmol/L (98-107); Creatinine, Serum 7.55 mg/dL (0.70-1.30); EST Glomerular Filtration Rate 8 mL/min (>60); Est Glom Filt Rate - Afr Amer 9 mL/min (>60); Glucose 75 mg/dL (74-106); Potassium 4.2 mmol/L (3.5-5.1); Sodium Level 143 mmol/L (136-145)
== END ==
LOC: OLS.WHL 05:00
PROVIDERS: PCP Family Medicine; Visit Provider Family Medicine
DX: N18.6 End stage renal disease (principal); I69.354 Hemiplegia and hemiparesis following cerebral infarction affecting left non-dominant side; M25.562 Pain in left knee; R62.7 Adult failure to thrive; M62.81 Muscle weakness (generalized); R26.2 Difficulty in walking, not elsewhere classified
CPT/HCPCS: 36415; 80048; 85025

== ENCOUNTER → 2022-06-06 | Outpatient (CLI) | payer MEDICARE, SELFPAY ==
[2022-06-06] VITALS (9 sets, daily range): BP systolic 143–175; BP diastolic 64–83; PULSE 65–70; RESP 12–20; TEMP 36.6; O2SAT 94–100; BMI 22.5
--- NOTE | 2022-06-06 | IMM_PTH ---
PATIENT: MODESTO DOMINGUEZ LOC: CT U#:[id number] AGE/SX: 71/M ROOM: RE06/06/[address]: Dr. Yuliana Wilder MD : 1950 BED: DIS: 06/06/2022 SPEC #: [id number] RECD: 06/07/22 11:31 STATUS: BONITA REMiguel #: [id number] SHAINA: 06/06/22 00:[address]: Yuliana Wilder DEPT: IMMUNOHISTOCHEMISTRY RECD BY: Joanne Nieto ENTERED: 06/07/22 11:33 SP TYPE: IMMUNO OTHR DR: Dr. Florian Ba MD Tissues: Pelvis, NOS Procedures: BCL-2 (add) CD10 (add) CD138 (add) CD15 (add) CD20 (add) CD3 (add) CD30 (add) CD43 (add) CD45 (add) CD5 (add) CD79A (add) KI-67 (add) MPO (add) Pankeratin (initial) PHYSICIAN & [address] [address] SPECIMEN INFORMATION: Tissue Source: Pelvic bone lesion Clinical Info: Pelvic bone lesion Specimen Number: [id number] CPT code: 12880, 86187 x13 METHODOLOGY: Deparaffinized sections of prefer/formalin-fixed tissue or PAP/DQ stained slides are incubated with monoclonal/polyclonal antibodies/oligonucleotide probes. Localization is made via biotin free immunoperoxidase method. Appropriate controls are performed and reacted as expected. Results on target cell population are indicated in the following table: RESULTS: ANTIBODY / CLONE RESULT AE1-3 (AE1/AE3/PCK26) negative CD3 (PS1) negative CD5 (SP10) negative CD20 (L26) negative CD43 (L60) positive CD45 (RP2/18) positive CD79a (11E3) negative CD138 (B-A38) negative CD10 (56C6) negative CD15 (MMA) positive CD30 (Timothy-H2) negative BCL-2 (bcl-2/100/D5) negative MPO (polyclonal) positive Ki-67 (30-9) positive These tests were developed and their performance characteristics determined by [facility]. They may not have been cleared or approved by the U.S. Food and Drug Administration. The FDA has determined that such clearance or approval is not necessary. The above immunohistochemical/dualISH markers are ordered and reviewed by the Pathologist. INTERPRETATION: Pelvic bone lesion, biopsy: No evidence of malignancy. AM:christel 06/10/2022
--- NOTE | 2022-06-06 09:11 | CT_ITS ---
PROCEDURE: CT GUIDED biopsy of the left iliac bone. DATE: 06/06/2022. INDICATION: Male, 71 years old. Lytic lesion in the left iliac bone. PHYSICIAN: Attila Cabello M.D. RADIATION DOSAGE (If Supplied By Facility): CTDIvol = ( 14.3 ) mGy, DLP = ( 190.96 ) mGycm. Individualized dose optimization techniques were utilized. PROCEDURE: The risks, benefits, and alternatives to the procedure were explained to the patient. The specific risk of hemorrhage requiring further treatment or intervention was detailed and accepted. Follow-up instructions were discussed with the patient as well. Written informed consent was obtained. The patient was brought into the CT suite and placed in the prone position. . An appropriate entry site was identified. The overlying skin was prepped and draped in the usual sterile fashion. 1% lidocaine was administered subcutaneously for local anesthesia. Conscious sedation was performed. The patient received 2 mg of VERSED and 50 mcg of FENTANYL intravenously. Conscious sedation was started at 10:23 AM and terminated at 10:45 AM. The patient was monitored by the department nurse. Under CT guidance, a total of 7 passes were performed utilizing an 18-gauge core biopsy needle system. The specimens were then placed in the appropriate fluid and transported to the laboratory for analysis. Hemostasis was obtained. The patient tolerated the procedure well without immediate complications. CT/Biopsy/Inj or Needle Placement IMPRESSION: Successful CT guided left iliac bone biopsy, as described above. Conscious sedation protocol was followed. Electronically Signed: Attila Cabello MD at 11:13 EDT ,
[2022-06-06 09:14] LABS: Absolute Lymphocyte Count 1.09 X10^3/uL (0.83-4.51); Absolute Neutrophil Count 3.9 X10^3/uL (2.0-7.7); Basophil# 0.05 X10^3/uL; Basophil% 0.8 % (0-1); Eosinophil# 0.75 X10^3/uL; Eosinophils% 11.8 % (0-5); Hematocrit 32.6 % (40-54); Hemoglobin 10.6 g/dL (13.0-16.5); Lymphocyte # 1.09 X10^3/ul (0.83-4.51); Lymphocyte % 17.1 % (19-41); Mean Corp Hgb Conc 32.5 g/dL (32-36); Mean Corpuscular Hgb 33.8 pg (27.0-32.0); Mean Corpuscular Volume 103.8 fL (80-94); Mean Platelet Vol. 9.1 fl (6.2-12.0); Monocyte# 0.52 X10^3/uL; Monocyte% 8.2 % (0-10); NRBC Flagged by Analyzer 0 % (0-5); Neutrophil # 3.94 X10^3/uL (2.7-7.7); Neutrophil % 61.8 % (47-70); Platelet Count 167 K/mm3 (150-450); RBC Distribution Width CV 16.4 % (11.6-14.6); RBC Distribution Width SD 61.9 fl (35.1-43.9); Red Blood Count 3.14 M/mm3 (4.6-6.2); White Blood Count 6.4 K/mm3 (4.4-11.0)
[2022-06-06 09:22] LABS: International Normalized Ratio 1.1; Prothrombin Time (Protime)PT. 13.5 SECONDS (11.7-14.9)
[2022-06-06 09:23] LABS: Partial Thromboplast Time 26.9 Seconds (24.1-36.2)
[2022-06-06] MEDS: Midazolam 2 MG/2 ML Syringe IV (10:23)
[2022-06-06] MEDS: fentaNYL 100 MCG/2 ML Ampul IV (10:23)
--- NOTE | 2022-06-06 10:30 | ASPIGT_PTH ---
PATIENT: MODESTO DOMINGUEZ LOC: CT U#:[id number] AGE/SX: 71/M ROOM: RE06/06/[address]: Dr. Yuliana Wilder MD : 1950 BED: DIS: 06/06/2022 SPEC #: [id number] RECD: 06/06/22 11:00 STATUS: BONITA RENETTA #: [id number] SHAINA: 06/06/22 10:[address]: Yuliana Wilder DEPT: SURGICAL PATHOLOGY RECD BY: Sophia Bautista ENTERED: 06/06/22 11:31 SP TYPE: ASP RAD OTHR DR: Dr. Florian Ba MD Tissues: Pelvis, NOS Procedures: FNA Specimen Adequacy Decalcification bone/plaque Special Stain Group II Surgery Specimen Level V Iron Stain (control) Imprint (control) HEADER OPERATION: CT-guided bone lesion biopsy PRE-OP DIAGNOSIS: Pelvic bone lesion TISSUE SUBMITTED: Pelvic bone lesion 18-gauge x7 MICROSCOPIC DIAGNOSIS Pelvic bone lesion, CT-guided core biopsy: Trilineage hematopoiesis. No evidence of malignancy. See comment. AM:christel 06/07/2022 COMMENT The specimen is evaluated at the time of biopsy by Dr. Woodward. Immediate Evaluation = Negative for malignant cells. Immunohistochemistry ([id number]) supports the above diagnosis. Iron stain with matched control was used in the evaluation of this case and is positive for stainable iron. MICROSCOPIC DESCRIPTION Slides are reviewed. GROSS DESCRIPTION Received is one container labeled with the patient's name and not further designated. The specimen consists of multiple irregular fragments of light to dark rai soft tissue that in aggregate measure 1 x 0.3 x 0.1 cm. The specimen is totally submitted in one cassette after calcification. / AM:christel 06/06/2022 TC:5 CPT: 76812, 11894, 95461
[2022-06-06] MEDS: Lidocaine 2% (20 ml mdv) 20 ML Vial (10:46)
--- NOTE | 2022-06-06 12:00 | NURSING ---
Report called to Nurse Harris at [facility], who verbalized understanding of home care and timeline for results/follow-up.
== END | disposition home or self-care (01) ==
LOC: CT 08:57
PROVIDERS: PCP Family Medicine; Visit Provider Internal Medicine Hematology & Oncology
DX: M89.8X9 Other specified disorders of bone, unspecified site (principal); E11.51 Type 2 diabetes mellitus with diabetic peripheral angiopathy without gangrene; I69.359 Hemiplegia and hemiparesis following cerebral infarction affecting unspecified side; Z99.2 Dependence on renal dialysis; E11.22 Type 2 diabetes mellitus with diabetic chronic kidney disease; E11.40 Type 2 diabetes mellitus with diabetic neuropathy, unspecified; N18.6 End stage renal disease; I12.0 Hypertensive chronic kidney disease with stage 5 chronic kidney disease or end stage renal disease; Z01.812 Encounter for preprocedural laboratory examination; I25.10 Atherosclerotic heart disease of native coronary artery without angina pectoris; E78.5 Hyperlipidemia, unspecified; Z87.891 Personal history of nicotine dependence; Z86.16 Personal history of COVID-19; N40.1 Benign prostatic hyperplasia with lower urinary tract symptoms; N13.8 Other obstructive and reflux uropathy; K21.9 Gastro-esophageal reflux disease without esophagitis; Z95.1 Presence of aortocoronary bypass graft
CPT/HCPCS: 20220; 36415; 77012; 85025; 85610; 85730; 88172; 88305; 88307; 88311; 88313; 88341; 88342; 99156; J7050; A4216

== ENCOUNTER → 2022-06-21 | Outpatient (REF) | payer MEDICARE, SELFPAY ==
[2022-06-21 08:24] LABS: Cholesterol 94 mg/dL (200); High Density Lipoprotein 40 mg/dL; Triglycerides 86 mg/dL; Very Low Density Lipoprotein 17 mg/dL (5-40)
== END ==
LOC: OLS.WHLEAS 05:00
PROVIDERS: PCP Family Medicine; Visit Provider Family Medicine
DX: N18.6 End stage renal disease (principal); I69.354 Hemiplegia and hemiparesis following cerebral infarction affecting left non-dominant side; M25.562 Pain in left knee; R62.7 Adult failure to thrive; M62.81 Muscle weakness (generalized); R26.2 Difficulty in walking, not elsewhere classified
CPT/HCPCS: 36415; 80061

== ENCOUNTER → 2022-06-26 | Outpatient (REF) | payer MEDICARE, MEDICAID, SELFPAY ==
[2022-06-26 07:22] LABS: Absolute Lymphocyte Count 1.49 X10^3/uL (0.83-4.51); Absolute Neutrophil Count 5.6 X10^3/uL (2.0-7.7); Basophil# 0.05 X10^3/uL; Basophil% 0.6 % (0-1); Eosinophil# 0.63 X10^3/uL; Eosinophils% 7.2 % (0-5); Hematocrit 33.4 % (40-54); Hemoglobin 10.7 g/dL (13.0-16.5); Lymphocyte # 1.49 X10^3/ul (0.83-4.51); Mean Corpuscular Hgb 34.2 pg (27.0-32.0); Mean Corpuscular Volume 106.7 fL (80-94); Mean Platelet Vol. 10.5 fl (6.2-12.0); Monocyte# 0.93 X10^3/uL; Monocyte% 10.6 % (0-10); NRBC Flagged by Analyzer 0 % (0-5); Neutrophil # 5.61 X10^3/uL (2.7-7.7); Neutrophil % 64.3 % (47-70); Platelet Count 161 K/mm3 (150-450); RBC Distribution Width SD 59.9 fl (35.1-43.9); Red Blood Count 3.13 M/mm3 (4.6-6.2); White Blood Count 8.7 K/mm3 (4.4-11.0)
[2022-06-26 07:33] LABS: Anion Gap 6 (5-15); BUN 44 mg/dL (7-18); BUN/Creat Ratio 6.4 RATIO (10-20); Calcium,Total 8.9 mg/dL (8.5-10.1); Chloride 103 mmol/L (98-107); Creatinine, Serum 6.85 mg/dL (0.70-1.30); EST Glomerular Filtration Rate 8 mL/min (>60); Est Glom Filt Rate - Afr Amer 10 mL/min (>60); Glucose 106 mg/dL (74-106); Potassium 4.4 mmol/L (3.5-5.1); Sodium Level 142 mmol/L (136-145)
== END ==
LOC: OLS.WHLEAS 05:00
PROVIDERS: PCP Family Medicine; Visit Provider Family Medicine
DX: N18.6 End stage renal disease (principal); I69.354 Hemiplegia and hemiparesis following cerebral infarction affecting left non-dominant side; M25.562 Pain in left knee; R62.7 Adult failure to thrive; M62.81 Muscle weakness (generalized); R26.2 Difficulty in walking, not elsewhere classified
CPT/HCPCS: 36415; 80048; 85025

== ENCOUNTER → 2022-07-24 | Outpatient (REF) | payer MEDICARE, MEDICAID, SELFPAY ==
[2022-07-24 09:48] LABS: Absolute Lymphocyte Count 0.72 X10^3/uL (0.83-4.51); Basophil# 0.03 X10^3/uL; Basophil% 0.3 % (0-1); Eosinophil# 0.04 X10^3/uL; Eosinophils% 0.4 % (0-5); Hematocrit 35.1 % (40-54); Hemoglobin 11.5 g/dL (13.0-16.5); Lymphocyte # 0.72 X10^3/ul (0.83-4.51); Mean Corp Hgb Conc 32.8 g/dL (32-36); Mean Corpuscular Hgb 33.5 pg (27.0-32.0); Mean Corpuscular Volume 102.3 fL (80-94); Mean Platelet Vol. 10.7 fl (6.2-12.0); Monocyte# 1.19 X10^3/uL; Monocyte% 13.2 % (0-10); NRBC Flagged by Analyzer 0 % (0-5); Neutrophil % 77.8 % (47-70); Platelet Count 164 K/mm3 (150-450); RBC Distribution Width CV 13.8 % (11.6-14.6); RBC Distribution Width SD 52.4 fl (35.1-43.9); Red Blood Count 3.43 M/mm3 (4.6-6.2)
[2022-07-24 10:23] LABS: Anion Gap 8 (5-15); BUN 43 mg/dL (7-18); Calcium,Total 8.8 mg/dL (8.5-10.1); Chloride 96 mmol/L (98-107); Creatinine, Serum 7.15 mg/dL (0.70-1.30); EST Glomerular Filtration Rate 8 mL/min (>60); Est Glom Filt Rate - Afr Amer 10 mL/min (>60); Glucose 136 mg/dL (74-106); Potassium 4.8 mmol/L (3.5-5.1); Sodium Level 136 mmol/L (136-145)
== END ==
LOC: OLS.WHLEAS 05:00
PROVIDERS: PCP Family Medicine; Visit Provider Family Medicine
DX: N18.6 End stage renal disease (principal); I69.354 Hemiplegia and hemiparesis following cerebral infarction affecting left non-dominant side; M25.562 Pain in left knee; R62.7 Adult failure to thrive; M62.81 Muscle weakness (generalized); R26.2 Difficulty in walking, not elsewhere classified
CPT/HCPCS: 36415; 80048; 85025

== ENCOUNTER → 2022-08-02 | Outpatient (REF) | payer MEDICARE, MEDICAID, SELFPAY ==
[2022-08-02 09:29] LABS: Cholesterol 89 mg/dL (200); High Density Lipoprotein 38 mg/dL; Triglycerides 92 mg/dL; Very Low Density Lipoprotein 18 mg/dL (5-40)
== END ==
LOC: OLS.WHLEAS 05:00
PROVIDERS: PCP Family Medicine; Visit Provider Family Medicine
DX: N18.6 End stage renal disease (principal); I69.354 Hemiplegia and hemiparesis following cerebral infarction affecting left non-dominant side; M25.562 Pain in left knee; R62.7 Adult failure to thrive; M62.81 Muscle weakness (generalized); R26.2 Difficulty in walking, not elsewhere classified
CPT/HCPCS: 36415; 80061

== ENCOUNTER → 2022-08-21 | Outpatient (REF) | payer MEDICARE, SELFPAY ==
[2022-08-21 07:33] LABS: Absolute Lymphocyte Count 1.06 X10^3/uL (0.83-4.51); Absolute Neutrophil Count 6.6 X10^3/uL (2.0-7.7); Basophil# 0.05 X10^3/uL; Basophil% 0.6 % (0-1); Eosinophil# 0.33 X10^3/uL; Eosinophils% 3.7 % (0-5); Hematocrit 36.1 % (40-54); Hemoglobin 11.1 g/dL (13.0-16.5); Lymphocyte # 1.06 X10^3/ul (0.83-4.51); Mean Corp Hgb Conc 30.7 g/dL (32-36); Mean Corpuscular Hgb 31.7 pg (27.0-32.0); Mean Corpuscular Volume 103.1 fL (80-94); Mean Platelet Vol. 10.3 fl (6.2-12.0); Monocyte# 0.85 X10^3/uL; Monocyte% 9.6 % (0-10); NRBC Flagged by Analyzer 0 % (0-5); Neutrophil # 6.55 X10^3/uL (2.7-7.7); Neutrophil % 73.8 % (47-70); Platelet Count 162 K/mm3 (150-450); RBC Distribution Width CV 14.5 % (11.6-14.6); RBC Distribution Width SD 54.4 fl (35.1-43.9); White Blood Count 8.9 K/mm3 (4.4-11.0)
[2022-08-21 07:43] LABS: Anion Gap 6 (5-15); BUN 36 mg/dL (7-18); Calcium,Total 8.2 mg/dL (8.5-10.1); Chloride 102 mmol/L (98-107); EST Glomerular Filtration Rate 10 mL/min (>60); Est Glom Filt Rate - Afr Amer 12 mL/min (>60); Glucose 92 mg/dL (74-106); Potassium 3.9 mmol/L (3.5-5.1); Sodium Level 141 mmol/L (136-145)
== END ==
LOC: OLS.WHLEAS 05:00
PROVIDERS: PCP Family Medicine; Visit Provider Internal Medicine
DX: N18.6 End stage renal disease (principal); I69.354 Hemiplegia and hemiparesis following cerebral infarction affecting left non-dominant side; M25.562 Pain in left knee; R62.7 Adult failure to thrive; M62.81 Muscle weakness (generalized); R26.2 Difficulty in walking, not elsewhere classified
CPT/HCPCS: 36415; 80048; 85025

== ENCOUNTER → 2022-09-13 | Outpatient (REF) | payer MEDICARE, MEDICAID, SELFPAY ==
[2022-09-13 09:21] LABS: Cholesterol 84 mg/dL (200); High Density Lipoprotein 36 mg/dL; Triglycerides 101 mg/dL; Very Low Density Lipoprotein 20 mg/dL (5-40)
== END ==
LOC: OLS.WHLEAS 05:00
PROVIDERS: PCP Family Medicine; Visit Provider Internal Medicine
DX: N18.6 End stage renal disease (principal); I69.354 Hemiplegia and hemiparesis following cerebral infarction affecting left non-dominant side; M25.562 Pain in left knee; R62.7 Adult failure to thrive; M62.81 Muscle weakness (generalized); R26.2 Difficulty in walking, not elsewhere classified
CPT/HCPCS: 36415; 80061

== ENCOUNTER → 2022-09-18 | Outpatient (REF) | payer MEDICARE, MEDICAID, SELFPAY ==
[2022-09-18 09:05] LABS: Absolute Lymphocyte Count 1.01 X10^3/uL (0.83-4.51); Absolute Neutrophil Count 4.8 X10^3/uL (2.0-7.7); Basophil# 0.04 X10^3/uL; Basophil% 0.6 % (0-1); Eosinophils% 7.1 % (0-5); Hematocrit 38.1 % (40-54); Hemoglobin 11.5 g/dL (13.0-16.5); Lymphocyte # 1.01 X10^3/ul (0.83-4.51); Lymphocyte % 14.3 % (19-41); Mean Corp Hgb Conc 30.2 g/dL (32-36); Mean Corpuscular Hgb 31.2 pg (27.0-32.0); Mean Corpuscular Volume 103.3 fL (80-94); Mean Platelet Vol. 10.4 fl (6.2-12.0); Monocyte# 0.71 X10^3/uL; NRBC Flagged by Analyzer 0 % (0-5); Neutrophil % 67.7 % (47-70); Platelet Count 153 K/mm3 (150-450); RBC Distribution Width CV 15.6 % (11.6-14.6); RBC Distribution Width SD 58.5 fl (35.1-43.9); Red Blood Count 3.69 M/mm3 (4.6-6.2); White Blood Count 7.1 K/mm3 (4.4-11.0)
[2022-09-18 09:17] LABS: Anion Gap 7 (5-15); BUN 36 mg/dL (7-18); BUN/Creat Ratio 6.2 RATIO (10-20); Calcium,Total 8.9 mg/dL (8.5-10.1); Chloride 102 mmol/L (98-107); Creatinine, Serum 5.79 mg/dL (0.70-1.30); EST Glomerular Filtration Rate 10 mL/min (>60); Est Glom Filt Rate - Afr Amer 12 mL/min (>60); Glucose 101 mg/dL (74-106); Potassium 4.1 mmol/L (3.5-5.1); Sodium Level 142 mmol/L (136-145)
== END ==
LOC: OLS.WHLEAS 05:00
PROVIDERS: PCP Family Medicine; Visit Provider Internal Medicine
DX: N18.6 End stage renal disease (principal); I69.354 Hemiplegia and hemiparesis following cerebral infarction affecting left non-dominant side; M25.562 Pain in left knee; R62.7 Adult failure to thrive; M62.81 Muscle weakness (generalized); R26.2 Difficulty in walking, not elsewhere classified
CPT/HCPCS: 36415; 80048; 85025

== ENCOUNTER → 2022-10-16 | Outpatient (REF) | payer MEDICARE, MEDICAID, SELFPAY ==
[2022-10-16 09:23] LABS: Absolute Lymphocyte Count 0.86 X10^3/uL (0.83-4.51); Absolute Neutrophil Count 4.6 X10^3/uL (2.0-7.7); Basophil# 0.04 X10^3/uL; Basophil% 0.6 % (0-1); Eosinophil# 0.45 X10^3/uL; Eosinophils% 6.8 % (0-5); Hematocrit 35.3 % (40-54); Lymphocyte # 0.86 X10^3/ul (0.83-4.51); Mean Corp Hgb Conc 31.2 g/dL (32-36); Mean Corpuscular Hgb 31.4 pg (27.0-32.0); Mean Corpuscular Volume 100.9 fL (80-94); Mean Platelet Vol. 10.9 fl (6.2-12.0); Monocyte# 0.69 X10^3/uL; Monocyte% 10.4 % (0-10); NRBC Flagged by Analyzer 0 % (0-5); Neutrophil # 4.55 X10^3/uL (2.7-7.7); Neutrophil % 68.9 % (47-70); Platelet Count 126 K/mm3 (150-450); RBC Distribution Width CV 15.4 % (11.6-14.6); RBC Distribution Width SD 56.6 fl (35.1-43.9); White Blood Count 6.6 K/mm3 (4.4-11.0)
[2022-10-16 09:37] LABS: Anion Gap 7 (5-15); BUN 53 mg/dL (7-18); BUN/Creat Ratio 9.3 RATIO (10-20); Calcium,Total 9.1 mg/dL (8.5-10.1); Chloride 99 mmol/L (98-107); Creatinine, Serum 5.67 mg/dL (0.70-1.30); EST Glomerular Filtration Rate 11 mL/min (>60); Est Glom Filt Rate - Afr Amer 13 mL/min (>60); Glucose 99 mg/dL (74-106); Potassium 4.1 mmol/L (3.5-5.1); Sodium Level 139 mmol/L (136-145)
== END ==
LOC: OLS.WHLEAS 05:00
PROVIDERS: PCP Family Medicine; Visit Provider Internal Medicine
DX: N18.6 End stage renal disease (principal); I69.354 Hemiplegia and hemiparesis following cerebral infarction affecting left non-dominant side; M25.562 Pain in left knee; R62.7 Adult failure to thrive; M62.81 Muscle weakness (generalized)
CPT/HCPCS: 36415; 80048; 85025

== ENCOUNTER → 2022-10-25 | Outpatient (REF) | payer MEDICARE, MEDICAID, SELFPAY ==
[2022-10-25 08:28] LABS: Cholesterol 80 mg/dL (200); High Density Lipoprotein 36 mg/dL; Triglycerides 109 mg/dL; Very Low Density Lipoprotein 22 mg/dL (5-40)
== END ==
LOC: OLS.WHLEAS 05:00
PROVIDERS: PCP Family Medicine; Visit Provider Family Medicine
DX: N18.6 End stage renal disease (principal); I69.354 Hemiplegia and hemiparesis following cerebral infarction affecting left non-dominant side; M25.562 Pain in left knee; R62.7 Adult failure to thrive; M62.81 Muscle weakness (generalized); R26.2 Difficulty in walking, not elsewhere classified
CPT/HCPCS: 36415; 80061

== ENCOUNTER → 2022-11-13 | Outpatient (REF) | payer MEDICARE, MEDICAID, SELFPAY ==
[2022-11-13 08:20] LABS: Absolute Lymphocyte Count 0.98 X10^3/uL (0.83-4.51); Basophil# 0.04 X10^3/uL; Basophil% 0.6 % (0-1); Eosinophil# 0.52 X10^3/uL; Eosinophils% 8.2 % (0-5); Hematocrit 33.7 % (40-54); Hemoglobin 10.3 g/dL (13.0-16.5); Lymphocyte # 0.98 X10^3/ul (0.83-4.51); Lymphocyte % 15.5 % (19-41); Mean Corp Hgb Conc 30.6 g/dL (32-36); Mean Corpuscular Hgb 31.1 pg (27.0-32.0); Mean Corpuscular Volume 101.8 fL (80-94); Mean Platelet Vol. 10.9 fl (6.2-12.0); Monocyte# 0.74 X10^3/uL; Monocyte% 11.7 % (0-10); NRBC Flagged by Analyzer 0 % (0-5); Neutrophil # 4.03 X10^3/uL (2.7-7.7); Neutrophil % 63.5 % (47-70); Platelet Count 116 K/mm3 (150-450); RBC Distribution Width CV 15.5 % (11.6-14.6); RBC Distribution Width SD 57.4 fl (35.1-43.9); Red Blood Count 3.31 M/mm3 (4.6-6.2); White Blood Count 6.3 K/mm3 (4.4-11.0)
[2022-11-13 08:37] LABS: Anion Gap 4 (5-15); BUN 55 mg/dL (7-18); BUN/Creat Ratio 9.6 RATIO (10-20); Calcium,Total 8.8 mg/dL (8.5-10.1); Chloride 102 mmol/L (98-107); Creatinine, Serum 5.73 mg/dL (0.70-1.30); EST Glomerular Filtration Rate 10 mL/min (>60); Est Glom Filt Rate - Afr Amer 13 mL/min (>60); Glucose 102 mg/dL (74-106); Potassium 4.3 mmol/L (3.5-5.1); Sodium Level 140 mmol/L (136-145)
== END ==
LOC: OLS.WHLEAS 05:00
PROVIDERS: PCP Family Medicine; Visit Provider Internal Medicine
DX: N18.6 End stage renal disease (principal); I69.354 Hemiplegia and hemiparesis following cerebral infarction affecting left non-dominant side; M25.562 Pain in left knee; R62.7 Adult failure to thrive; M62.81 Muscle weakness (generalized); R26.2 Difficulty in walking, not elsewhere classified
CPT/HCPCS: 36415; 80048; 85025

== ENCOUNTER → 2022-12-06 | Outpatient (REF) | payer MEDICARE, MEDICAID, SELFPAY ==
[2022-12-06 08:16] LABS: Cholesterol 81 mg/dL (200); High Density Lipoprotein 40 mg/dL; Triglycerides 80 mg/dL; Very Low Density Lipoprotein 16 mg/dL (5-40)
== END ==
LOC: OLS.WHLEAS 05:00
PROVIDERS: PCP Family Medicine; Visit Provider Family Medicine
DX: N18.6 End stage renal disease (principal); I69.354 Hemiplegia and hemiparesis following cerebral infarction affecting left non-dominant side; M25.562 Pain in left knee; R62.7 Adult failure to thrive; M62.81 Muscle weakness (generalized); R26.2 Difficulty in walking, not elsewhere classified
CPT/HCPCS: 36415; 80061

== ENCOUNTER → 2022-12-12 | Outpatient (REF) | payer MEDICARE, MEDICAID, SELFPAY ==
[2022-12-12 07:01] LABS: Absolute Lymphocyte Count 0.96 X10^3/uL (0.83-4.51); Absolute Neutrophil Count 4.1 X10^3/uL (2.0-7.7); Basophil# 0.04 X10^3/uL; Basophil% 0.7 % (0-1); Eosinophil# 0.39 X10^3/uL; Eosinophils% 6.4 % (0-5); Hematocrit 33.9 % (40-54); Hemoglobin 10.8 g/dL (13.0-16.5); Lymphocyte # 0.96 X10^3/ul (0.83-4.51); Lymphocyte % 15.7 % (19-41); Mean Corp Hgb Conc 31.9 g/dL (32-36); Mean Corpuscular Hgb 32.1 pg (27.0-32.0); Mean Corpuscular Volume 100.9 fL (80-94); Mean Platelet Vol. 11.2 fl (6.2-12.0); Monocyte# 0.61 X10^3/uL; NRBC Flagged by Analyzer 0 % (0-5); Platelet Count 134 K/mm3 (150-450); RBC Distribution Width CV 15.9 % (11.6-14.6); Red Blood Count 3.36 M/mm3 (4.6-6.2); White Blood Count 6.1 K/mm3 (4.4-11.0)
[2022-12-12 07:13] LABS: Anion Gap 7 (5-15); BUN 44 mg/dL (7-18); BUN/Creat Ratio 11.3 RATIO (10-20); Calcium,Total 8.9 mg/dL (8.5-10.1); Chloride 100 mmol/L (98-107); EST Glomerular Filtration Rate 16 mL/min (>60); Est Glom Filt Rate - Afr Amer 20 mL/min (>60); Glucose 115 mg/dL (74-106); Potassium 4.2 mmol/L (3.5-5.1); Sodium Level 141 mmol/L (136-145)
== END ==
LOC: OLS.WHLEAS 05:55
PROVIDERS: PCP Family Medicine; Visit Provider Nurse Practitioner Adult Health
DX: N18.6 End stage renal disease (principal); M25.562 Pain in left knee; R62.7 Adult failure to thrive; I69.354 Hemiplegia and hemiparesis following cerebral infarction affecting left non-dominant side; M62.81 Muscle weakness (generalized); R26.2 Difficulty in walking, not elsewhere classified
CPT/HCPCS: 36415; 80048; 85025

== ENCOUNTER → 2022-12-18 | Outpatient (REF) | payer MEDICARE, MEDICAID, SELFPAY ==
[2022-12-18 10:33] LABS: Anion Gap 8 (5-15); BUN 68 mg/dL (7-18); BUN/Creat Ratio 12.5 RATIO (10-20); Calcium,Total 9.1 mg/dL (8.5-10.1); Chloride 102 mmol/L (98-107); Creatinine, Serum 5.46 mg/dL (0.70-1.30); EST Glomerular Filtration Rate 11 mL/min (>60); Est Glom Filt Rate - Afr Amer 13 mL/min (>60); Glucose 112 mg/dL (74-106); Potassium 4.8 mmol/L (3.5-5.1); Sodium Level 141 mmol/L (136-145)
[2022-12-18 10:36] LABS: Absolute Lymphocyte Count 1.02 X10^3/uL (0.83-4.51); Absolute Neutrophil Count 4.8 X10^3/uL (2.0-7.7); Basophil# 0.05 X10^3/uL; Basophil% 0.7 % (0-1); Eosinophil# 0.37 X10^3/uL; Eosinophils% 5.3 % (0-5); Hematocrit 34.3 % (40-54); Hemoglobin 10.4 g/dL (13.0-16.5); Lymphocyte # 1.02 X10^3/ul (0.83-4.51); Lymphocyte % 14.6 % (19-41); Mean Corp Hgb Conc 30.3 g/dL (32-36); Mean Corpuscular Hgb 31.8 pg (27.0-32.0); Mean Corpuscular Volume 104.9 fL (80-94); Mean Platelet Vol. 11.7 fl (6.2-12.0); Monocyte# 0.69 X10^3/uL; Monocyte% 9.9 % (0-10); NRBC Flagged by Analyzer 0 % (0-5); Neutrophil # 4.82 X10^3/uL (2.7-7.7); Neutrophil % 69.2 % (47-70); Platelet Count 116 K/mm3 (150-450); RBC Distribution Width CV 15.7 % (11.6-14.6); Red Blood Count 3.27 M/mm3 (4.6-6.2)
== END ==
LOC: OLS.WHLEAS 06:40
PROVIDERS: PCP Family Medicine; Visit Provider Internal Medicine
DX: N18.6 End stage renal disease (principal); M25.562 Pain in left knee; R62.7 Adult failure to thrive; I69.354 Hemiplegia and hemiparesis following cerebral infarction affecting left non-dominant side; R26.2 Difficulty in walking, not elsewhere classified
CPT/HCPCS: 36415; 80048; 85025

== ENCOUNTER → 2023-01-16 | Outpatient (REF) | payer MEDICARE, MEDICAID, SELFPAY ==
[2023-01-16 07:20] LABS: Absolute Lymphocyte Count 0.77 X10^3/uL (0.83-4.51); Absolute Neutrophil Count 4.7 X10^3/uL (2.0-7.7); Basophil# 0.03 X10^3/uL; Basophil% 0.5 % (0-1); Eosinophil# 0.12 X10^3/uL; Hemoglobin 10.5 g/dL (13.0-16.5); Lymphocyte # 0.77 X10^3/ul (0.83-4.51); Lymphocyte % 12.6 % (19-41); Mean Corp Hgb Conc 30.9 g/dL (32-36); Mean Corpuscular Hgb 32.2 pg (27.0-32.0); Mean Corpuscular Volume 104.3 fL (80-94); Mean Platelet Vol. 11.2 fl (6.2-12.0); Monocyte% 8.2 % (0-10); NRBC Flagged by Analyzer 0 % (0-5); Neutrophil # 4.67 X10^3/uL (2.7-7.7); Neutrophil % 76.4 % (47-70); Platelet Count 118 K/mm3 (150-450); RBC Distribution Width CV 16.9 % (11.6-14.6); RBC Distribution Width SD 64.1 fl (35.1-43.9); Red Blood Count 3.26 M/mm3 (4.6-6.2); White Blood Count 6.1 K/mm3 (4.4-11.0)
[2023-01-16 07:36] LABS: Anion Gap 9 (5-15); BUN 73 mg/dL (7-18); BUN/Creat Ratio 12.4 RATIO (10-20); Calcium,Total 9.5 mg/dL (8.5-10.1); Chloride 100 mmol/L (98-107); Creatinine, Serum 5.87 mg/dL (0.70-1.30); EST Glomerular Filtration Rate 10 mL/min (>60); Est Glom Filt Rate - Afr Amer 12 mL/min (>60); Glucose 128 mg/dL (74-106); Sodium Level 140 mmol/L (136-145)
[2023-01-17 05:54] LABS: Cholesterol 80 mg/dL (200); High Density Lipoprotein 36 mg/dL; Triglycerides 99 mg/dL; Very Low Density Lipoprotein 20 mg/dL (5-40)
== END ==
LOC: OLS.WHLEAS 05:00
PROVIDERS: PCP Family Medicine; Visit Provider Internal Medicine
DX: N18.6 End stage renal disease (principal); I69.354 Hemiplegia and hemiparesis following cerebral infarction affecting left non-dominant side; M25.562 Pain in left knee; R62.7 Adult failure to thrive; M62.81 Muscle weakness (generalized)
CPT/HCPCS: 36415; 80048; 80061; 85025

== ENCOUNTER → 2023-02-13 | Outpatient (REF) | payer MEDICARE, MEDICAID, SELFPAY ==
[2023-02-13 09:50] LABS: Absolute Lymphocyte Count 0.65 X10^3/uL (0.83-4.51); Absolute Neutrophil Count 3.9 X10^3/uL (2.0-7.7); Basophil# 0.03 X10^3/uL; Basophil% 0.5 % (0-1); Eosinophils% 5.4 % (0-5); Hematocrit 34.2 % (40-54); Hemoglobin 10.6 g/dL (13.0-16.5); Lymphocyte # 0.65 X10^3/ul (0.83-4.51); Lymphocyte % 11.7 % (19-41); Mean Corpuscular Hgb 31.8 pg (27.0-32.0); Mean Corpuscular Volume 102.7 fL (80-94); Mean Platelet Vol. 11.3 fl (6.2-12.0); Monocyte# 0.63 X10^3/uL; Monocyte% 11.4 % (0-10); NRBC Flagged by Analyzer 0 % (0-5); Neutrophil % 70.5 % (47-70); Platelet Count 115 K/mm3 (150-450); RBC Distribution Width CV 15.4 % (11.6-14.6); RBC Distribution Width SD 57.9 fl (35.1-43.9); Red Blood Count 3.33 M/mm3 (4.6-6.2); White Blood Count 5.5 K/mm3 (4.4-11.0)
[2023-02-13 10:09] LABS: Anion Gap 6 (5-15); BUN 58 mg/dL (7-18); BUN/Creat Ratio 12.3 RATIO (10-20); Calcium,Total 8.9 mg/dL (8.5-10.1); Chloride 99 mmol/L (98-107); EST Glomerular Filtration Rate 13 mL/min (>60); Est Glom Filt Rate - Afr Amer 16 mL/min (>60); Glucose 98 mg/dL (74-106); Potassium 4.3 mmol/L (3.5-5.1); Sodium Level 137 mmol/L (136-145)
== END ==
LOC: OLS.WHLEAS 05:00
PROVIDERS: PCP Family Medicine; Visit Provider Internal Medicine
DX: N18.6 End stage renal disease (principal); M25.562 Pain in left knee; I69.354 Hemiplegia and hemiparesis following cerebral infarction affecting left non-dominant side; M62.81 Muscle weakness (generalized)
CPT/HCPCS: 36415; 80048; 85025

== ENCOUNTER 2023-02-21 11:22 | Emergency (ER) | payer MEDICARE, MEDICAID, SELFPAY ==
[2023-02-21 11:23] VITALS: BP 144/70; PULSE 87; RESP 18; TEMP 36.4; O2SAT 93; BMI 21.5
--- NOTE | 2023-02-21 11:49 | EX.ED.DYSGE1 ---
HPI <SYLVIA Levin - Last Filed: 02/21/23 14:47> History of Present Illness Chief Complaint: Back Narrative Narrative: 72-year-old male left dialysis with 1 hour left of his session due to chronic tailbone pain seemed worse today. He states he has had this for months and the [facility] gave him a Tylenol this morning but it did not help. He had a bone biopsy last year due to lytic bone lesions that was negative for cancer. He denies fall or injury. He has chronic left-sided weakness from a CVA. 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 Closed intraventricular hemorrhage COVID-19 virus detected (07/24/20) Debility Depression Diabetes mellitus, type 2 Diverticulosis End-stage renal disease on hemodialysis Essential (primary) hypertension Fatigue Frequent falls GERD (gastroesophageal reflux disease) History of CVA (cerebrovascular accident) (08/2017) History of non-ST elevation myocardial infarction (NSTEMI) (07/24/20) Hyperlipidemia Intracerebral hemorrhage Left ventricular hypertrophy Lytic bone lesions on xray Peripheral vascular occlusive disease Problem with dialysis access Right bundle branch block (RBBB) Subdural hematoma (07/22/19) Subdural hemorrhage Tobacco dependence in remission Home Medications Finasteride 5 mg PO DAILY PROSTATE 07/30/19 [History Last Taken 07/24/20] aspirin 81 mg chewable tablet 81 mg PO DAILY@0800 HEALTH MAINTENANCE 05/26/20 [History Last Taken 04/19/22] atorvastatin 80 mg tablet 80 mg PO QHS CHOLESTEROL 05/26/20 [History Last Taken 04/18/22] levetiracetam 500 mg tablet 500 mg PO BID SEIZURES 05/26/20 [History Last Taken 07/24/20] calcium acetate(phosphat bind) 667 mg capsule 667 mg PO TIDCM 07/12/20 [History Last Taken 07/24/20] pantoprazole 40 mg tablet,delayed release 40 mg PO DAILY GERD 07/24/20 [History Last Taken 07/24/20] melatonin 5 mg capsule 6 mg PO QHS 12/13/20 [History Last Taken Unknown] polyethylene glycol 3350 17 gram/dose oral powder (Miralax) 17 g PO DAILY 12/13/20 [History Last Taken Unknown] sennosides 8.6 mg capsule (senna) 8.6 mg PO DAILY 12/13/20 [History Last Taken Unknown] amoxicillin 500 mg-potassium clavulanate 125 mg tablet (Augmentin) 1 tab PO BID 7 days #14 tabs 04/24/22 [Rx Last Taken Unknown] midodrine 10 mg tablet 10 mg PO TID 05/21/22 [History Last Taken Unknown] ondansetron HCl 4 mg tablet 4 mg PO Q4H 05/21/22 [History Last Taken Unknown] tamsulosin 0.4 mg capsule 0.4 mg PO QHS PROSTATE 05/21/22 [History Last Taken Unknown] cholecalciferol (vitamin D3) 50 mcg (2,000 unit) capsule 50 mcg PO DAILY 06/13/22 [History Last Taken Unknown] Allergy/AdvReac Type Severity Reaction Status Date / Time No Known Allergies Allergy Verified 06/13/22 11:05 Family History Brother Diabetes Mother Hypertension Daughter Diabetes Harvey chorea Surgical History H/O coronary artery bypass surgery (11/10/12) History of angioplasty of peripheral vessel (05/16/19) History of coronary artery stent placement (03/28/09) S/P arteriovenous (AV) fistula creation S/p bilateral carpal tunnel release Social History household members: spouse Smoking Status: Former smoker alcohol intake: never substance use type: does not use caffeine: No what type of physical activity do you participate in: none frequency: does not exercise ROS <SYLVIA Levin - Last Filed: 02/21/23 14:47> ROS ED ROS Narrative Constitutional: Negative for fever, chills, malaise. CVS: Negative for chest pain. Respiratory: Negative for shortness of breath. GI: Negative for abdominal pain, nausea, vomiting. : Negative for dysuria. Skin: Negative for rash, abscess, or wound. Musc: Negative for joint pain, swelling, trauma. EXAM <SYLVIA Levin - Last Filed: 02/21/23 14:47> Physical Exam Narrative Exam Narrative: CONST: Patient sitting in no acute distress. EYES: Normal inspection. NECK: Normal inspection. RESP: No respiratory distress, CTAB. CVS: Regular rate and rhythm, no murmur, no gallop. SKIN: Color normal, no rash, warm, dry, intact. EXTREMITIES: Left arm contracture, left arm and leg weakness secondary to CVA. 2+ radial DP pulses. Back: No tenderness over the thoracic or lumbar spine, tender over the lower sacrum. NEURO: Oriented x4. PSYCH: Normal affect. Const Vital Signs: 02/21/23 11:23 02/21/23 14:38 02/21/23 14:39 Temperature 97.5 F L Temperature Source Temporal Pulse Rate 87 66 Respiratory Rate 18 14 Blood Pressure 144/70 H 120/68 Blood Pressure Mean 94 Pulse Ox 93 92 93 Oxygen Delivery Method Room Air Room Air <Dr. Oscar Nicole DO - Last Filed: 02/21/23 15:46> Physical Exam Const Vital Signs: 02/21/23 11:23 02/21/23 14:38 02/21/23 14:39 Temperature 97.5 F L Temperature Source Temporal Pulse Rate 87 66 Respiratory Rate 18 14 Blood Pressure 144/70 H 120/68 Blood Pressure Mean 94 Pulse Ox 93 92 93 Oxygen Delivery Method Room Air Room Air MDM <SYLVIA Levin - Last Filed: 02/21/23 14:47> [facility] Narrative Medical decision making narrative: Patient presents with atraumatic tailbone pain. He states this has been a chronic issue. He appears well and nontoxic. Vital signs within normal limits. His cardiopulmonary exam is normal. Abdomen soft and nontender. The only tenderness of his spine is over the lower sacrum and tailbone area with no bruising or signs of trauma. He is able to move both lower extremities (chronic left-sided weakness from stroke). Distal pulses intact. X-ray shows lumbar degenerative changes but no acute fracture. He is feeling improved after morphine and will be discharged back to SNF. Differential: Arthritis, fracture, symptoms do not sound consistent with sciatica or lumbar radiculopathy, no red flags concerning for cauda equina syndrome External records reviewed: 05/15/2022 CT abdomen/pelvis showed indeterminate radiolucencies within the bony pelvis and femurs concerning for neoplastic process. 05/28/2022 nuclear bone scan shows increased tracer uptake in the spine and bones is commensurate with degenerative arthrosis. Radiography Diagnostic Testing: Clinical Impression(s) from Imaging Studies Lumbar Spine X-Ray 02/21/23 12:35 IMPRESSION: Degenerative changes of the spine, as detailed above. Electronically Signed: Attila Cabello MD at 12:53 EDT , ED attending interpretation of lumbar spine shows no acute fracture. <Dr. Oscar Nicole, DO - Last Filed: 02/21/23 15:46> [facility] MDM Narrative Medical decision making narrative: Patient presents with atraumatic tailbone pain. He states this has been a chronic issue. He appears well and nontoxic. Vital signs within normal limits. His cardiopulmonary exam is normal. Abdomen soft and nontender. The only tenderness of his spine is over the lower sacrum and tailbone area with no bruising or signs of trauma. He is able to move both lower extremities (chronic left-sided weakness from stroke). Distal pulses intact. X-ray shows lumbar degenerative changes but no acute fracture. He is feeling improved after morphine and will be discharged back to SNF. Differential: Arthritis, fracture, symptoms do not sound consistent with sciatica or lumbar radiculopathy, no red flags concerning for cauda equina syndrome External records reviewed: 05/15/2022 CT abdomen/pelvis showed indeterminate radiolucencies within the bony pelvis and femurs concerning for neoplastic process. 05/28/2022 nuclear bone scan shows increased tracer uptake in the spine and bones is commensurate with degenerative arthrosis. This patient was seen with a PA/[employer]CR[employer]E [employer]LE DRIVER OPERATOR Individually assessed they patient including history and physical. I have reviewed everything on the chart that is available and agree with the documentation provided by the PA/CONCRETE [employer]LE DRIVER OPERATOR including discussion about the assessment, treatment plan, discussion, and return precautions. Patient pain was well controlled when I examined him. No acute findings were noted. X-rays of the lumbar spine were negative. Patient discharged in stable condition. Radiography Diagnostic Testing: Clinical Impression(s) from Imaging Studies Lumbar Spine X-Ray 02/21/23 12:35 IMPRESSION: Degenerative changes of the spine, as detailed above. Electronically Signed: Attila Cabello MD at 12:53 EDT , Discharge Plan Triage Chief Complaint: Back ED Midlevel Provider: Vy Nunes ED Provider: Oscar Nicole Dx/Rx/DC Orders Clinical Impression: Chronic low back pain Instructions: ED Back Care Tips Prescriptions: No Action midodrine 10 mg tablet 10 mg PO TID Rx Instructions: do not give last dose of day after 6PM or within 4 hrs of bedtime ondansetron HCl 4 mg tablet 4 mg PO Q4H cholecalciferol (vitamin D3) 50 mcg (2,000 unit) capsule 50 mcg PO DAILY Finasteride 5 MG tablet 5 mg PO DAILY atorvastatin 80 MG tablet 80 mg PO QHS aspirin 81 MG tablet,chewable 81 mg PO DAILY@0800 levetiracetam 500 MG tablet 500 mg PO BID calcium acetate(phosphat bind) 667 MG capsule 667 mg PO TIDCM pantoprazole 40 MG tablet 40 mg PO DAILY tamsulosin 0.4 mg capsule 0.4 mg PO QHS amoxicillin-pot clavulanate [Augmentin] 500-125 mg tablet 1 tab PO BID 7 Days Qty: 14 0RF melatonin 5 mg capsule 6 mg PO QHS polyethylene glycol 3350 [Miralax] 17 gram/dose powder 17 g PO DAILY senna 8.6 mg capsule 8.6 mg PO DAILY Primary Care Provider: Florian Ba Referrals: Florian Ba MD [Primary Care Provider] - Activity Restrictions/Additional Instructions: Lumbar x-rays showed degenerative changes. Please take tylenol or use a lidocaine patch as needed and follow up with his PCP. Disposition Disposition: Home, Self Care
[2023-02-21] MEDS: Morphine 4 MG/ML Syringe IM (12:02)
[2023-02-21] MEDS: Ondansetron ODT 4 MG Tablet PO (12:02)
--- NOTE | 2023-02-21 12:35 | RAD_ITS ---
STUDY: X-RAY - LUMBAR SPINE REASON FOR EXAM: Male, 72 years old. Back pain TECHNIQUE: 3 view(s) of the lumbar spine were obtained. COMPARISON: None FINDINGS: There is straightening of the normal lumbar lordosis. There is no substantial scoliosis. There is a normal alignment of the vertebrae. Anterior spondylosis at the L2-L3, L3-L4 L4-L5 and L5-S1 levels. Normal disc space heights. Facet joint osteoarthritis. There is atherosclerotic calcification of the abdominal aorta without a demonstrated aneurysm. RAD/Lumbar Spine 2 or 3 Views IMPRESSION: Degenerative changes of the spine, as detailed above. Electronically Signed: Attila Cabello MD at 12:53 EDT ,
--- NOTE | 2023-02-21 13:09 | ED.RN ---
Voicemail left with patients daughter per pt. request.
[2023-02-21 14:38] VITALS: BP 120/68; PULSE 66; RESP 14; O2SAT 92
[2023-02-21 14:39] VITALS: O2SAT 93
--- NOTE | 2023-02-21 14:40 | NURSING ---
CALLED [facility], ETA IS 2 HRS
--- NOTE | 2023-02-21 17:02 | NURSING ---
CALLED [facility], ETA IS ANOTHER 40 TO 45 MIN
--- NOTE | 2023-02-21 17:52 | ED.RN ---
transporting squad in ed
== END 2023-02-21 17:59 | disposition home or self-care (01) ==
PROVIDERS: Emergency Provider Student in an Organized Health Care Education/Training Program; PCP Family Medicine; Visit Provider Student in an Organized Health Care Education/Training Program
DX: G89.29 Other chronic pain (principal); I69.352 Hemiplegia and hemiparesis following cerebral infarction affecting left dominant side; Z99.2 Dependence on renal dialysis; E11.22 Type 2 diabetes mellitus with diabetic chronic kidney disease; I12.0 Hypertensive chronic kidney disease with stage 5 chronic kidney disease or end stage renal disease; N18.6 End stage renal disease; E78.5 Hyperlipidemia, unspecified; Z87.891 Personal history of nicotine dependence; I25.10 Atherosclerotic heart disease of native coronary artery without angina pectoris; M54.50 Low back pain, unspecified; Z79.82 Long term (current) use of aspirin; Z79.899 Other long term (current) drug therapy; K21.9 Gastro-esophageal reflux disease without esophagitis; N40.0 Benign prostatic hyperplasia without lower urinary tract symptoms; Z95.5 Presence of coronary angioplasty implant and graft
CPT/HCPCS: 72100; 96372; 99284

== ENCOUNTER → 2023-02-28 | Outpatient (REF) | payer MEDICARE, MEDICAID, SELFPAY ==
[2023-02-28 08:38] LABS: Cholesterol 71 mg/dL (200); High Density Lipoprotein 32 mg/dL; Triglycerides 107 mg/dL; Very Low Density Lipoprotein 21 mg/dL (5-40)
== END ==
LOC: OLS.WHLEAS 05:00
PROVIDERS: PCP Family Medicine; Visit Provider Family Medicine
DX: N18.6 End stage renal disease (principal); M62.81 Muscle weakness (generalized); I69.354 Hemiplegia and hemiparesis following cerebral infarction affecting left non-dominant side; M25.562 Pain in left knee; Z79.899 Other long term (current) drug therapy
CPT/HCPCS: 36415; 80061

== ENCOUNTER → 2023-03-12 | Outpatient (REF) | payer MEDICARE, MEDICAID, SELFPAY ==
[2023-03-12 08:31] LABS: Absolute Lymphocyte Count 0.76 X10^3/uL (0.83-4.51); Absolute Neutrophil Count 5.7 X10^3/uL (2.0-7.7); Basophil# 0.04 X10^3/uL; Basophil% 0.5 % (0-1); Eosinophil# 0.27 X10^3/uL; Eosinophils% 3.6 % (0-5); Hematocrit 37.2 % (40-54); Hemoglobin 11.5 g/dL (13.0-16.5); Lymphocyte # 0.76 X10^3/ul (0.83-4.51); Lymphocyte % 10.2 % (19-41); Mean Corp Hgb Conc 30.9 g/dL (32-36); Mean Corpuscular Hgb 31.7 pg (27.0-32.0); Mean Corpuscular Volume 102.5 fL (80-94); Mean Platelet Vol. 11.2 fl (6.2-12.0); Monocyte# 0.64 X10^3/uL; Monocyte% 8.6 % (0-10); NRBC Flagged by Analyzer 0 % (0-5); Neutrophil # 5.72 X10^3/uL (2.7-7.7); Neutrophil % 76.6 % (47-70); Platelet Count 128 K/mm3 (150-450); RBC Distribution Width CV 16.4 % (11.6-14.6); RBC Distribution Width SD 61.9 fl (35.1-43.9); Red Blood Count 3.63 M/mm3 (4.6-6.2); White Blood Count 7.5 K/mm3 (4.4-11.0)
[2023-03-12 08:38] LABS: Anion Gap 6 (5-15); BUN 43 mg/dL (7-18); BUN/Creat Ratio 8.8 RATIO (10-20); Chloride 101 mmol/L (98-107); Creatinine, Serum 4.91 mg/dL (0.70-1.30); EST Glomerular Filtration Rate 12 mL/min (>60); Est Glom Filt Rate - Afr Amer 15 mL/min (>60); Glucose 93 mg/dL (74-106); Sodium Level 141 mmol/L (136-145)
== END ==
LOC: OLS.WHLEAS 05:00
PROVIDERS: PCP Family Medicine; Visit Provider Internal Medicine
DX: N18.6 End stage renal disease (principal); M25.562 Pain in left knee; I69.354 Hemiplegia and hemiparesis following cerebral infarction affecting left non-dominant side; M62.81 Muscle weakness (generalized)
CPT/HCPCS: 36415; 80048; 85025